=== PATIENT | female | born 1955 | race Caucasian/White ===

== ENCOUNTER 2019-08-17 13:43 | Outpatient (CLI) | payer MEDICARE, SELFPAY ==
--- NOTE | ~2019-08-17 | XR_ITS ---
EXAMINATION: XR chest 2V EXAM DATE: 08/17/2019 14:09 INDICATION: Cough. TECHNIQUE: Frontal and lateral projections of the chest obtained and reviewed. Comparison is made to prior examination from 11/12/2008. FINDINGS: The lungs are clear. There are no pleural effusions. The cardiomediastinal silhouette is within normal limits. There is no pneumothorax suspected. The bones and soft tissues are unremarkab le. Lungs are moderately hyperinflated. IMPRESSION: 1. No acute cardiopulmonary findings. 2. Hyperinflation. Reviewed, dictated and finalized at location A. ESS INSPECTOR
== END 2019-08-17 13:44 | disposition home or self-care (01) ==
LOC: ANHIMG 13:50
PROVIDERS: PCP Family Medicine; Visit Provider Family Medicine
DX: R05 Cough (principal); R91.8 Other nonspecific abnormal finding of lung field
CPT/HCPCS: 71046

== ENCOUNTER 2019-09-16 15:58 | Inpatient (IN) | payer MEDICARE, MEDICAID, SELFPAY ==
[2019-09-16] VITALS (11 sets, daily range): BP systolic 113–146; BP diastolic 60–89; PULSE 85–101; RESP 16–24; TEMP 37.2–37.7; O2SAT 93–98; BMI 28.4
--- NOTE | ~2019-09-16 | XR_ITS ---
EXAMINATION: XR chest 2V DATE: 09/16/2019 16:40 INDICATION: This of breath, cough and congestion TECHNIQUE: PA and lateral views of the chest were obtained. COMPARISON: 08/17/2019 FINDINGS: Increased expansion of lungs with mild eventration along the diaphragm accentuated by lordotic positi oning. Calcified nodules in the right upper lung zone and calcified mediastinal lymph nodes consisten t with old granulomatous disease. No other airspace opacities, pulmonary edema, pleural effusion or p neumothorax. The cardiomediastinal silhouette is normal. Mild thoracic spondylosis with chronic mild anterior wedging of a lower thoracic vertebral body. IMPRESSION: 1. Unchanged hyperexpansion of lungs. No acute cardiopulmonary disease. Reviewed, dictated and finalized at location A. OMER SOLUTIONS COORDINATOR
--- NOTE | ~2019-09-16 | CT_ITS ---
EXAMINATION: CT sinus wo con DATE: 09/18/2019 09:04 INDICATION: Recurrent sinusitis. Emphysema. TECHNIQUE: Computed tomography (CT) of the paranasal sinuses was performed without intravenous contra st. The dose-length product was 215.35 mGy-cm. COMPARISON: None FINDINGS: There is mild mucosal thickening of the maxillary and frontal sinuses. No air-fluid levels. Leftward nasal septal deviation. Right ostiomeatal unit is patent. Left ostiomeatal unit is partiall y occluded by soft tissue. Partially visualized mastoids are pneumatized. IMPRESSION: 1. Mild sinus disease. 2: Leftward nasal septal deviation. Reviewed, dictated and finalized at location A. STANT TEACHING PROFESSOR
--- NOTE | ~2019-09-16 | CT_ITS ---
EXAMINATION: CT chest high resolution wo co DATE: 09/18/2019 09:05 INDICATION: Recurrent sinus disease. Emphysema. Dyspnea. TECHNIQUE: Computed tomography (CT) of the chest was performed without intravenous contrast. The dose -length product was 213.96 mGy-cm. Automated exposure control and iterative reconstruction technique were employed. COMPARISON: Chest x-ray dated 09/16/2019 FINDINGS: There are calcified mediastinal lymph nodes, consistent with chronic granulomatous disease. Mildly prominent substernal thyroid gland with 2.2 cm hypodense mass of the left thyroid lobe. Consi ronald correlation with ultrasound. Heart size normal. No significant pleural or pericardial effusion. T here are calcified granulomas in the right lung. There are calcified splenic granulomas. Small subcen timeter hypodensity right hepatic lobe, likely benign. There is a 5 mm left upper lobe nodule, axial image 36. There are small scattered 2 mm nodules bilate rally. No pneumothorax. No focal airspace consolidation. There is emphysema. There is groundglass opa cification right middle lobe, likely atelectasis. No endobronchial lesions. Mild thoracic spondylosis . No osteolytic or osteoblastic lesions. IMPRESSION: 1. Small pulmonary nodules, largest in the left upper lobe measuring 5 mm, likely benign. Recommend f ollow-up low dose CT chest in 12 months. 2: Emphysema. 3: 2.2 cm hypodense mass left thyroid lobe, consider correlation with ultrasound. Reviewed, dictated and finalized at location A. IL STORE ASSOCIATE IMPRESSION: 1. Small pulmonary nodules, largest in the left upper lobe measuring 5 mm, like ly benign. Recommend follow-up low dose CT chest in 12 months. 2: Emphysema. 3: 2.2 cm hypodense mass left thyroid lobe, consider correlation with ultrasou nd.
--- NOTE | 2019-09-16 16:11 | ECG_ITS ---
Measurements Intervals [place] Rate: 86 P: 80 AL: 145 QRS: 71 QRSD: 78 T: 74 QT: 345 QTc: 415 Interpretive Statements SINUS RHYTHM BASELINE ARTIFACT- I, II, III, AVR, AVL, AVF BORDERLINE ECG Electronically Signed On 09-16-2019 18:51:24 UNDERTAKER HELPER by Davion Cardenas D.O.
[2019-09-16 16:25] LABS: Basophils Absolute Auto 0.1 K/mm3 (0.0-0.1); Basophils Percent Auto 0.8 % (0.2-1.2); Eosinophils Absolute Auto 0.3 K/mm3 (0-0.3); Eosinophils Percent Auto 1.8 % (0-4.4); Hematocrit 37.3 % (37.0-47.0); Hemoglobin 11.9 g/dL (12.0-15.0); Immature Granulocyte Absolute 0.07 K/mm3 (0.00-0.031); Immature Granulocyte Percent A 0.5 % (0-0.5); Lymphocytes Absolute Auto 2.94 K/mm3 (0.9-3.2); Lymphocytes Percent Auto 20.2 % (18.3-44.2); Mean Corpuscular HGB Conc 31.9 g/dl (32-36); Mean Corpuscular Hemoglobin 29.6 pg (26-34); Mean Corpuscular Volume 92.8 fl (80-100); Mean Platelet Volume 8.9 fl (7.4-10.4); Monocytes Absolute Auto 1.7 K/mm3 (0.1-0.6); Monocytes Percent Auto 11.3 % (2.6-8.5); Neutrophils Absolute Auto 9.5 K/mm3 (1.3-6.7); Neutrophils Percent Auto 65.4 % (45.5-73.1); Platelet Count Result 414 k/mm3 (150-375); Red Blood Count 4.02 M/mm3 (4.2-5.4); Red Cell Distribution Width 12.7 % (11.5-14.5); White Blood Count 14.6 K/mm3 (4.5-10.0)
[2019-09-16 16:35] LABS: Blood Urea Nitrogen 14 mg/dL (7-17); Calcium 8.9 mg/dL (8.4-10.2); Carbon Dioxide 29 mmol/L (22-30); Chloride 98 mmol/L (98-107); Estimated Glomerular Filt Rate 55; Glucose 100 mg/dL (65-105); Potassium 4.1 mmol/L (3.4-5.0); Sodium 138 mmol/L (137-145)
--- NOTE | 2019-09-16 17:39 | ED.SOB ---
HPI - SOB/Dyspnea General Chief Complaint: Shortness of Breath/Dyspnea Stated Complaint: Difficulty breathing Time Seen by Provider: 09/16/19 17:36 Source: patient and RN notes reviewed Mode of arrival: other Limitations: no limitations History of Present Illness HPI Narrative: Pt is a 64 y/o female who presents to the ED with c/o intermittent SOB since June, but she states that her sx began again yesterday. Pt states that she had three rounds of abx and Prednisone. Pt states that she believes that she is has the flu again. Pt also reports cough, nasal congestion, post nasal drip, headache, intermittent fever, and a resolved sore throat. MD elicited complaint: shortness of breath Onset (ago): month(s) (3) Context: recent illness Timing: intermittent Associated symptoms: fever (intermittent), cough and other (nasal congestion, post nasal drip, headache, a resolved sore throat ) Related Data Home Medications Medication Instructions Recorded Confirmed fluticasone propionate 50 2 spray NASAL DAILY 06/22/19 mcg/actuation nasal spray,suspension lisinopril 10 mg tablet 10 mg PO DAILY 06/22/19 magnesium 250 mg tablet 250 mg PO DAILY 07/29/19 Allergies Allergy/AdvReac Type Severity Reaction Status Date / Time lidocaine Allergy Unknown Tachycardia Verified 09/02/19 15:53 NOVACAINE Allergy Mild Unknown Uncoded 06/22/19 15:21 Review of Systems Review of Systems: All systems reviewed & are unremarkable except as noted in HPI and below Constitutional: Constitutional: Reports fever(s) (intermittent) ENT: Reports nasal congestion, Reports post nasal drip and Reports sore throat (resolved) Respiratory: Respiratory: Reports cough and Reports dyspnea Neurologic: Reports headache(s) PMFSH Past Medical History Medical History (Updated 09/16/19 @ 18:57 by Ever Dodd MD) Colon ulcer Depressive disorder, not elsewhere classified Diverticulitis Essential (primary) hypertension Methicillin resistant Staphylococcus aureus infection Mixed hyperlipidemia Nicotine dependence with current use Nicotine dependence, unspecified, in remission Pulmonary hyperinflation Surgical History Surgical History (Updated 09/16/19 @ 17:49 by Ailin Duvall) H/O arthroscopy of knee x3 on right knee, x1 on left knee Social History Social History (Updated 09/16/19 @ 17:45 by Ailin Duvall) Smoking packs per day: 0.25 Smoking cigarettes per day: 5.0 Years smoked: 40 Smoking pack-years: 10.00 Smoking status: Former smoker Tobacco type: cigarettes Additional smoking assessment comments: Pt states that she just quit smoking recently. Alcohol intake: current Gender identity (if verbalized by the patient): Female Exam Narrative: Exam Narrative: General appearance: Well-developed, well-nourished Skin: Normal color Head: Normocephalic, nontraumatic Eyes: Clear conjunctiva ENT: Oropharynx normal, ears normal, nose normal Neck: Supple, nontender Chest and respiratory: Airway patent, diminished end of air entry bilaterally, expiratory wheezing. Heart: Regular rate/rhythm Abdomen: Soft, nontender, no organomegaly, quiet bowel sounds Vascular: Normal peripheral pulses, normal capillary refill. Musculoskeletal: Normal range of motion, nontender back Neurologic: Alert and oriented ?3, PRODUCT OPERATIONS ASSOCIATE is normal as tested, no gross motor deficit Course Course Emergency Course: Improving Consultations Consultation #1: Discussed case with HENRY Aranda (Hospitalist). Accepts admission. Date: 09/16/19 Time: 18:43 Vital Signs Vital signs: Vital Signs Temperature 37.7 C H 09/16/19 16:11 Pulse Rate 92 09/16/19 16:11 Respiratory Rate
[2019-09-16] MEDS: IPRATROPIUM BR 0.02% INH SOLN 0.5 MG/2.5 ML VIAL INHALATION ×2 (18:10→19:43)
[2019-09-16] MEDS: ALBUTEROL SULFATE NEB 2.5 MG/0.5 ML INH 5 MG INHALATION ×2 (18:11→19:42)
[2019-09-16 18:21] LABS: Alveolar/Arterial O2 Gradient 36.2 mmHg; Base Excess ABG 2.2 mEq/l (+/-2.0); Fractional Inspired Oxygen 21 %; HCO3 ABG 27.1 mEq/l (22.0-26.0); Oxygen Content ABG 16.5 %vol (16.0-22.0); Oxygen Saturation ABG 91.9 % (95.0-100.0); Oxyhemoglobin 91.1 % THb (90.0-100.0); PCO2 ABG 43.3 mmHg (35.0-45.0); PO2 ABG 61.7 mmHg (80.0-100.0); PO2 FiO2 Ratio Arterial Blood 2.94 %; Total Hemoglobin 12.9 g/dL (12.0-18.0); pH ABG 7.414 (7.350-7.450)
[2019-09-16 18:22] LABS: Device ROOM AIR; Site Drawn RIGHT BRACHIAL
[2019-09-16] MEDS: ACETAMINOPHEN 325 MG TABLET 650 MG PO (21:23)
[2019-09-17] VITALS (13 sets, daily range): BP systolic 109–137; BP diastolic 57–71; PULSE 77–100; RESP 18–20; TEMP 36.3–37.1; O2SAT 91–93
--- NOTE | 2019-09-17 | PM.IMHP ---
H&P: HPI History of Present Illness Chief complaint: acute hypoxic respiratory failure copd exacerbatio Narrative: Date and time of patient contact: 09/16/2019 23:20 Lisa Scott is a 64 year old female with a past medical history of chronic tobacco abuse likely COPD who presented to the ER with worsening shortness of breath. The patient has had multiple episodes of respiratory illness since June. She saw her primary care provider 2 times in June and was treated conservatively for sinusitis and upper respiratory tract infection. July 19 she saw her primary care provider again and was prescribed azithromycin and 5 days of prednisone. She also was diagnosed with tonsillar cyst on the right side at that time. She reported that after the steroids in antibiotics her symptoms had improved. On August 18 she returned to the ER with burning throat pain and burning discomfort with breathing. She also reported a burning headache. Had a cough productive of green sputum. Was prescribed doxycycline and a Medrol Dosepak. Her symptoms improved with doxycycline and Medrol Dosepak. She had a x-ray which demonstrated hyperinflation. She followed up with her primary care provider's office on the week of the and was given an order for pulmonary function testing. Not too long after her last appointment with her primary care provider she did developed a severe sore throat with significant postnasal drip. She thought that she had strep throat but did not go back to the ER because she did not want a 3rd course of antibiotics. Her symptoms improved without antibiotic therapy. But then on the 14 of September she developed worsening shortness of breath and cough productive of green sputum again. She also had nasal congestion and a burning ?sinus headache?. She would cough until she was lightheaded and generally felt ill. She had generalized body aches and felt as if she had the flu. Influenza swab performed in the ER was negative. She watches her grandchildren once a week and they have been ill with upper respiratory symptoms. She denies any nausea or vomiting but has had decreased appetite. She denies any fevers or chills. The patient reports that her symptoms have been so bad that she has not smoked any cigarettes for the past 7 days. Review of Systems Review of Systems: Narrative: Except as documented in the HPI, all other systems were reviewed and are negative. [facility] Past Medical History Medical History (Updated 09/17/19 @ 00:05 by Jacqui Johnson DO) Colon ulcer 2000 Depressive disorder, not elsewhere classified Diverticulitis Essential (primary) hypertension Methicillin resistant Staphylococcus aureus infection on her back in 2010 Mixed hyperlipidemia Nicotine dependence with current use Nicotine dependence, unspecified, in remission Pulmonary hyperinflation outpatient PFT's have been ordered Surgical History Surgical History H/O arthroscopy of knee x3 on right knee, x1 on left knee Family History Family History Father Family history of coronary artery disease Hypertension Chronic obstructive pulmonary disease Congestive heart failure Mother Hypertension Acute myocardial infarction Asthma Chronic obstructive pulmonary disease Diabetes mellitus Sibling Hypertension Asthma Chronic obstructive pulmonary disease Social History Social History (Updated 09/17/19 @ 04:04 by Jacqui Johnson DO) Social History: The patient has smoked since she was a teenager. She has smoked a little less than a pack of cigarettes per day for 47 years. She had quit smoking for 2 and half to 3 years but started smoking again several years ago. She has been down to 4 5 cigarettes a day for several months. And has not smoked at all for the last 7 days due to her upper respiratory symptoms. She drinks a couple of al
[2019-09-17] MEDS: methylPREDNISolone SOD SUCC 125 MG VIAL 60 MG IV PUSH ×4 (00:01→17:17)
--- NOTE | 2019-09-17 02:13 | PC.NURSE ---
This patient, Lisa Scott, was admitted to Medical Room 347-. Patient/family oriented to hospital policies and general routines including ID bracelet, bed and alarms, visiting hours, pain management, procedures, bathroom and other care routines, personal items, smoking policy, room service/diet, and visiting hours. Valuables list has been completed. Information on how to activate the Rapid Response Team has been discussed. Patient/Family are encouraged to report perceived risks to care and to ask questions if they do not understand what they are told or what they should do.
[2019-09-17] MEDS: IPRATROPIUM BR 0.02% INH SOLN 0.5 MG/2.5 ML VIAL INHALATION ×4 (06:31→19:07)
[2019-09-17] MEDS: ALBUTEROL SULFATE NEB 2.5 MG/0.5 ML INH 5 MG INHALATION ×2 (06:31→09:40)
[2019-09-17] MEDS: ENOXAPARIN 40 MG/0.4 ML SYRINGE SUB-Q (08:49)
[2019-09-17] MEDS: FLUTICASONE PROPIONATE 0.05% NA SPR 16 GM BTL (*BKC) 2 SPRAY NASAL (08:49)
[2019-09-17] MEDS: VITAMIN B COMPLEX CAPSULE 1 CAP PO (08:49)
[2019-09-17] MEDS: LEVALBUTEROL NEB 1.25 MG/3 ML 0.63 MG INHALATION ×2 (15:43→19:07)
[2019-09-17] MEDS: ACETAMINOPHEN 325 MG TABLET 650 MG PO (17:16)
--- NOTE | 2019-09-17 18:30 | PM.IMPN ---
Progress Note: A&P Assessment and Plan (1) Acute exacerbation of chronic obstructive airways disease: Code(s): J44.1 - Chronic obstructive pulmonary disease with (acute) exacerbation Status: Acute Assessment and Plan: Patient most likely has underlying COPD. However she has not been well enough to complete the PFTs that have been ordered as outpatient. Patient is not on any inhalers or nebulizers at home. Sx better but still with sinus symptoms. Lung exam improved. Continue scheduled nebulizer treatments and IV steroids Patient does not have a oxygen requirement and is not in significant respiratory distress at this time. Will transition to oral steroids tomorrow. Check echo and HRCT to start the workup. Check sputum. Codeine for her cough (2) Nicotine dependence with current use: Code(s): F17.200 - Nicotine dependence, unspecified, uncomplicated Status: Acute Assessment and Plan: She has been encouraged to quit smoking. (3) Essential (primary) hypertension: Code(s): I10 - Essential (primary) hypertension Status: Acute Assessment and Plan: BP reviewed on 09/17/19. BP well controlled. Continue lisinopril. (4) Upper respiratory infection, viral: Code(s): J06.9 - Acute upper respiratory infection, unspecified Status: Acute Assessment and Plan: Most likely viral given her exposure. Boom check sputum. Contineu supportive care. Subjective Date/time seen: 09/17/19 18:30 Interval history: 64yo female here for cough and SOB. Complains of sinus OLVERA with congestion involving the right side of her head. 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 Cough productive of green sputum. Also with burning in the throat from coughing. No CP, nausea or vomiting. has been told she has COPD but not had any formal evaluation. No significnat KWONG. Exam Narrative: Exam Narrative: Gen - NARD sitting up in bed HEENT - whitish nodule in the right tonsil, nml tonsillar size without erythema. MMM Chest - few basilar crackles o/w distant BS CV - RRR S1/S2 Abd - soft, NT/ND, +BS Ext - no pedal edema Psych - nml mood and affect Skin - warm and dry Objective Data Vital Signs Vital Signs: Vital Signs - 24 hr 09/16/19 18:48 09/16/19 19:30 09/16/19 19:33 Temperature Pulse Rate 91 85 90 Respiratory Rate 18 18 17 Blood Pressure 142/74 H 113/60 Pulse Oximetry 96 94 94 09/16/19 19:40 09/16/19 19:48 09/16/19 20:04 Temperature Pulse Rate 86 87 93 Respiratory Rate 17 16 16 Blood Pressure 123/66 Pulse Oximetry 93 09/16/19 20:25 09/17/19 05:22 09/17/19 06:32 Temperature 98.9 F 97.4 F L Pulse Rate 101 H 85 83 Respiratory Rate 20 18 20 Blood Pressure 129/71 137/71 Pulse Oximetry 94 92 09/17/19 06:42 09/17/19 09:40 09/17/19 09:43 Temperature Pulse Rate 87 88 Respiratory Rate 18 20 Blood Pressure Pulse Oximetry 91 09/17/19 10:00 09/17/19 14:00 09/17/19 15:44 Temperature 98.7 F Pulse Rate 100 82 86 Respiratory Rate 20 18 20 Blood Pressure 118/61 Pulse Oximetry 92 09/17/19 15:58 Temperature Pulse Rate 96 Respiratory Rate 20 Blood Pressure Pulse Oximetry Intake/Output Intake/Output: Intake & Output 09/14/19 09/15/19 09/16/19 09/17/19 23:59 23:59 23:59 23:59 Intake Total 3065 Balance 3065 Meds/Results Medications: Active Medications Generic Name Dose Route Start Last Admin Trade Name Freq PRN Reason Stop Dose Admin Acetaminophen 650 mg 09/16/19 18:59 09/17/19 17:16 Tylenol Tablet PO 650 mg Q4H PRN Administration Mild Pain (1-3) or Fever Ascorbic Acid 500 mg 09/17/19 21:00 Vitamin C PO [facility] Calcium Carbonate 500 mg 09/17/19 21:00 Os-Yoni 500 +D Tablet PO 10/17/19 21:01 [facility] Enoxaparin Sodium 40 mg 09/17/19 09:00 09/17/19 08:49 Lovenox SUB-Q 40 mg DAILY [facility] Admin
[2019-09-17] MEDS: lisinopriL 10 MG TABLET PO (21:26)
[2019-09-17] MEDS: ASCORBIC ACID 500 MG TABLET PO (21:26)
[2019-09-17] MEDS: MAGNESIUM OXIDE 400 MG TABLET PO (21:27)
[2019-09-18] VITALS (8 sets, daily range): BP systolic 136–149; BP diastolic 60–70; PULSE 76–99; RESP 16–20; TEMP 36.3–37.1; O2SAT 90–91
--- NOTE | 2019-09-18 | ECHO_ITS ---
Patient Info Name: Lisa Scott Age: 64 years : 1955 Gender: Female Ht: 63 in Wt: 160 lbs BSA: 1.82 m2 HR: 81 bpm BP: 134 / 59 mmHg Heart Rhythm: Sinus Rhythm Technical Quality: Good Exam Date: 09/18/2019 7:10 AM Exam Location: [facility] Card Pulmonary Patient Status: Inpatient Admit Date: 09/17/2019 Staff Ordering Physician: Gamal Trevnio MD Photo Cartographer: Camelia Persaud RDCS Attending Provider: Gamal Trevino MD Exam Type: CA echo doppler color flow Study Info Complete two-dimensional, color flow and Doppler transthoracic echocardiogram is performed. Summary 1. Left ventricular systolic function is hyperdynamic, estimated at >70%. 2. There is mildly increased left ventricular wall thickness. 3. The left ventricular diastolic function is grade II diastolic dysfunction. 4. Left atrial chamber dimension is mildly enlarged. 5. There is no aortic valve stenosis. 6. There is trace mitral valve regurgitation. 7. Mild pulmonary hypertension, estimated pulmonary arterial systolic pressure is 39 mmHg. 8. There is mild tricuspid valve regurgitation. Left Ventricle Left ventricular chamber dimension is normal. Left ventricular systolic function is hyperdynamic, estimated at >70%. There is mildly increased left ventricular wall thickness. The left ventricular diastolic function is grade II diastolic dysfunction. Right Ventricle Right ventricular chamber dimension is normal. Right ventricular systolic function is normal. Left Atria Left atrial chamber dimension is mildly enlarged. Right Atria Right atrial chamber dimension is normal. Aortic Valve The aortic valve is trileaflet. There is no aortic valve stenosis. There is no aortic valve regurgitation. Pulmonic Valve The pulmonic valve is not well visualized. Mitral Valve The mitral valve has normal leaflets. There is trace mitral valve regurgitation. Tricuspid Valve The tricuspid valve leaflets are normal. There is mild tricuspid valve regurgitation. Mild pulmonary hypertension, estimated pulmonary arterial systolic pressure is 39 mmHg. Pericardium/Pleural The pericardium appears normal. There is no pericardial effusion. Inferior Vena Cava Normal inferior vena cava with >50% collapse upon inspiration consistent with normal right atrial pressure, 5 mmHg. Aorta The aortic root size at the sinus of Valsalva is normal. Left Ventricular Outflow Tract Name Value Normal LVOT 2D LVOT Diameter 2.1 cm LVOT Doppler LVOT Peak Velocity 176 cm/s LVOT Peak Gradient 8 mmHg LVOT Mean Gradient 4 mmHg LVOT VTI 32 cm LVOT VTI/AV VTI Ratio 1.0 LVOT Stroke Volume 109 ml LVOT CO 8.3 l/min LVOT CI 4.6 l/min/m2 Pulmonic Valve Name Value Normal
[2019-09-18] MEDS: methylPREDNISolone SOD SUCC 125 MG VIAL 60 MG IV PUSH ×3 (00:18→11:28)
[2019-09-18] MEDS: IPRATROPIUM BR 0.02% INH SOLN 0.5 MG/2.5 ML VIAL INHALATION ×3 (01:52→15:38)
[2019-09-18] MEDS: LEVALBUTEROL NEB 1.25 MG/3 ML 0.63 MG INHALATION ×3 (01:53→15:38)
[2019-09-18] MEDS: ENOXAPARIN 40 MG/0.4 ML SYRINGE SUB-Q (08:35)
[2019-09-18] MEDS: VITAMIN B COMPLEX CAPSULE 1 CAP PO (08:35)
[2019-09-18] MEDS: FLUTICASONE PROPIONATE 0.05% NA SPR 16 GM BTL (*BKC) 2 SPRAY NASAL (08:35)
[2019-09-18] MEDS: ACETAMINOPHEN 325 MG TABLET 650 MG PO (11:35)
--- NOTE | 2019-09-18 15:02 | PM.DS ---
DS: Diagnosis Admitting Diagnosis Admitting Diagnosis: Chronic obstructive pulmonary disease with (acute) exacerbation Discharge Diagnosis (1) Acute exacerbation of chronic obstructive airways disease: Code(s): J44.1 - Chronic obstructive pulmonary disease with (acute) exacerbation Status: Acute Assessment and Plan: Patient here with productive cough and SOB with wheezing. CXR showing no acute disease but hyperexpanded lungs. ABG showing 7.41/43/62 on RA. Treated with steroids and nebulizer treatments. Symptoms better but still with cough. CT scan showing emphysema. She has not been well enough to complete the PFTs that have been ordered as outpatient. Patient is not on any inhalers or nebulizers at home. Patient does not have a oxygen requirement and is not in significant respiratory distress. Echo shwing EF 70%and diastolic dysfunction grade II. Mild sinus disease also noted. Patient still with coughing jags. Would consider Pertussis but she has already had multiple rounds of abx. She feels better and feels ready for discharge. (2) Nicotine dependence with current use: Code(s): F17.200 - Nicotine dependence, unspecified, uncomplicated Status: Acute Assessment and Plan: She has been encouraged to quit smoking. This was discussed for approximately 8 minutes. (3) Essential (primary) hypertension: Code(s): I10 - Essential (primary) hypertension Status: Acute Assessment and Plan: BP monitored closely. BP well controlled. We continued her home lisinopril here. Will change to Diovan to see if cough improves. (4) Upper respiratory infection, viral: Code(s): J06.9 - Acute upper respiratory infection, unspecified Status: Acute Assessment and Plan: Most likely viral given her exposure. MRSA nasal swab negative. Sputum is pending. (5) Thyroid nodule: Code(s): E04.1 - Nontoxic single thyroid nodule Status: Acute Assessment and Plan: CT scan noted a 2.2 cm hypodense mass left thyroid lobe. Will order outpatient US. Defer to PCP for further evaluation (6) Pulmonary nodule: Code(s): R91.1 - Solitary pulmonary nodule Status: Acute Assessment and Plan: CT scan also showing small pulmonary nodules with the largest in the left upper lobe measuring 5 mm, likely benign. Radiologist recommends a follow-up low dose CT chest in 12 months. Will order. DS: Summary Hospital Course Reason for hospitalization: 64yo female here for SOB abd cough. Please see H&P for details Hospital Course: As above Time spent discussing smoking cessation with patient: 3 to 10 minutes Time Spent with Patient Time attestation: Total time spent providing and/or coordinating discharge services:39 minutes Time spent: Greater than 30 minutes Exam Narrative: Exam Narrative: Gen - NARD Chest -few scattered wheezes otherwise distant breath sounds. CV - RRR S1/S2 Abd - Soft, NT/ND, Positive BS Ext - No pedal edema Psych - Nml mood and affect Skin - Warm and dry DS: Data Data Completed and Pending Labs on day of discharge: Preliminary micro results at discharge 09/18/19 06:08 Sputum Culture - Preliminary Sputum Discharge Plan Discharge Attending physician on discharge: Gamal Trevino Discharging Clinician: Gamal Trevino Anticipated Discharge Date/Time: 09/18/19 15:23 Patient Disposition: Home, Self-Care Activity: as tolerated Diet: regular Discharge Instructions: Follow up with the primary care doctor in 1-2 weeks. Patient Instructions: How to Stop Smoking (DC), Antibiotic Form Stand Alone Forms: General Discharge Information Follow-up/Referrals: El Renner MD [Primary Care Provider] - 1 Week Discharge Medications: New albuterol sulfate 90 mcg/actuation aerosol powdr breath activated 2 inhalation INHALATION QID Qty: 1 RF: 1 fluticasone propion-salmete
--- NOTE | 2019-09-22 13:54 | PC.NURSE ---
sputum cx- normal oropharyngeal joo. Dr. Belinda troy.
== END 2019-09-18 16:20 | disposition home or self-care (01) | DRG 192 ==
LOC: ANHED 18:57 → ANH3MED 20:09
PROVIDERS: Emergency Medicine; Admitting Provider Internal Medicine; Emergency Provider Emergency Medicine; PCP Family Medicine; Visit Provider Internal Medicine
DX: J44.1 Chronic obstructive pulmonary disease with (acute) exacerbation (principal); J06.9 Acute upper respiratory infection, unspecified; E04.1 Nontoxic single thyroid nodule; R91.1 Solitary pulmonary nodule; I10 Essential (primary) hypertension; E78.2 Mixed hyperlipidemia; F32.9 Major depressive disorder, single episode, unspecified; Z87.891 Personal history of nicotine dependence
CPT/HCPCS: 36415; 36600; 70486; 71046; 71250; 80048; 82805; 85025; 87070; 87081; 87205; 87804; 93005; 93306; 94640; 99285; A9270; J1650; J2930

== ENCOUNTER 2020-02-18 14:56 | Outpatient (CLI) | payer MEDICARE, SELFPAY ==
--- NOTE | ~2020-02-18 | US_ITS ---
EXAMINATION: US thyroid DATE: 02/18/2020 15:57 INDICATION: Nontoxic single thyroid nodule TECHNIQUE: Multiple ultrasound images of the thyroid were obtained. COMPARISON: None. FINDINGS: The right thyroid lobe measures 6.4 x 2.8 x 2.2 cm. The left thyroid lobe measures 6.9 x 3.2 x 2.3 c m. The thyroid isthmus measures 2 mm thickness. Wider than tall hypoechoic solid nodule with well-def ined margins and without internal echogenic foci (TI-RADS 4, moderately suspicious , FNA if >=1.5 cm, annual followup is >1 cm) measuring 2.3 cm in maximal diameter and the lateral mid right thyroid lob e and 1.9 cm in the inferior right thyroid lobe. 1.5 cm wider than tall solid isoechoic nodule at the deep right thyroid lobe (TI-RADS 3, mildly suspicious , FNA if >=2.5 cm, annual followup is >1.5 cm) . Lobular architecture to the left thyroid lobe with heterogeneous echogenicity but without clearly d efined discrete thyroid nodules. IMPRESSION: 1. Multinodular goiter with a couple TI RADS 4 nodules in the right thyroid lobe being criteria for u ltrasound guided biopsy. Would recommend biopsy of at least the larger 2.3 cm nodule and could consid er biopsy of the second 1.9 cm nodule. 2. Lobular architecture to the left thyroid lobe without a clearly defined nodule identified on the p rovided ultrasound images although there does appear to be a nodule based upon the prior CT imaging. Recommend reassessment of the left thyroid lobe at the time of recommended right thyroid biopsy and b iopsy should and nodule meeting consists criteria be identified. Reviewed, dictated and finalized at location A. IMPRESSION: 1. Multinodular goiter with a couple TI RADS 4 nodules in the right thyroid lob e being criteria for ultrasound guided biopsy. Would recommend biopsy of at [address] st the larger 2.3 cm nodule and could consider biopsy of the second 1.9 cm nodu le. 2. Lobular architecture to the left thyroid lobe without a clearly defined nodu le identified on the provided ultrasound images although there does appear to b e a nodule based upon the prior CT imaging. Recommend reassessment of the left thyroid lobe at the time of recommended right thyroid biopsy and biopsy should and nodule meeting consists criteria be identified.
== END 2020-02-18 14:57 | disposition home or self-care (01) ==
PROVIDERS: PCP Family Medicine; Visit Provider Physician Assistant
DX: E04.2 Nontoxic multinodular goiter (principal)
CPT/HCPCS: 76536

== ENCOUNTER 2020-02-28 12:57 | Outpatient (CLI) | payer MEDICARE, SELFPAY ==
--- NOTE | ~2020-02-28 | US_ITS ---
EXAMINATION: 1. US FNA w image guidance 2. US FNA additional DATE: 02/28/2020 14:24 INDICATION: Nontoxic thyroid nodules. TECHNIQUE: The procedure and its benefits, risks, and benefits were discussed with the patient. Risks specifical ly discussed included bleeding. The patient verbalized understanding of the risks and agreed to proce ed. The neck was prepped and draped in the usual sterile manner. 1% lidocaine was used for local ane sthesia. Five passes were made with a 25G needle into the nodule in superior right thyroid lobe. Ap propriate needle location was documented with continuous sonographic guidance. Five passes were made with a 25G needle into the nodule in inferior right thyroid lobe. Appropriate needle location was documented with continuous sonographic guidance. There were no immediate complica tions. The patient understood to call the ordering physician for results after a week and a half and verbalized that understanding. FINDINGS: Grayscale ultrasound images demonstrate needles advanced into a 2.3 cm nodule in superior right thyro id lobe for biopsy. Grayscale ultrasound images demonstrate needles advanced into a 1.9 cm nodule in inferior right thyroid lobe. IMPRESSION: 1. Ultrasound-guided fine needle aspiration of a nodule in superior right thyroid lobe. 2. Ultrasound-guided fine-needle aspiration of a nodule in inferior right thyroid lobe. Reviewed, dictated and finalized at location A. IMPRESSION: 1. Ultrasound-guided fine needle aspiration of a nodule in superior right thyr oid lobe. 2. Ultrasound-guided fine-needle aspiration of a nodule in inferior right thyro id lobe.
== END 2020-02-28 12:58 | disposition home or self-care (01) ==
PROVIDERS: PCP Family Medicine; Visit Provider Physician Assistant
DX: E04.1 Nontoxic single thyroid nodule (principal)
CPT/HCPCS: 10005; 10006; 88173; 88305

== ENCOUNTER 2020-08-21 14:29 | Outpatient (CLI) | payer MEDICARE, SELFPAY ==
--- NOTE | ~2020-08-21 | MM_ITS ---
EXAMINATION: MM screening [place] BI w carol ann HISTORY: Screening mammogram TECHNIQUE: Craniocaudal and mediolateral oblique 3-D tomosynthesis images were obtained and synthetic 2-D images were generated. CAD analysis was submitted and interpreted. COMPARISON: 09/12/2016, 02/19/2012 bilateral digital screening mammogram examinations BREAST PARENCHYMAL COMPOSITION: There are scattered areas of fibroglandular density. FINDINGS: There is no evidence of suspicious mass, calcification, or architectural distortion to sugg est malignancy in either breast. There has been no suspicious interval change. IMPRESSION: 1. No mammographic evidence of malignancy. 2. Recommend routine screening mammography in one year. BI-RADS Category 1: Negative Reviewed, dictated and finalized at location A. ES CLERK
== END 2020-08-21 14:30 | disposition home or self-care (01) ==
PROVIDERS: Family Provider Family Medicine; PCP Internal Medicine; Visit Provider Internal Medicine
DX: Z12.31 Encounter for screening mammogram for malignant neoplasm of breast (principal)
CPT/HCPCS: 77063; 77067

== ENCOUNTER 2021-08-24 13:34 | Observation (INO) | payer MEDICARE, SELFPAY ==
[2021-08-24] VITALS (9 sets, daily range): BP systolic 108–145; BP diastolic 71–83; PULSE 62–130; RESP 15–23; TEMP 35.8–36.2; O2SAT 94–100; BMI 34.9
--- NOTE | ~2021-08-24 | XR_ITS ---
EXAMINATION: XR chest 2V EXAM DATE: 08/24/2021 14:06 INDICATION: Irregular Heartbeat, Sob. Hx Copd, TECHNIQUE: Frontal and lateral projections of the chest obtained and reviewed. Comparison is made to prior examination from 09/16/2019. FINDINGS: The lungs are clear. There are no pleural effusions. The cardiomediastinal silhouette is within normal limits. There is no pneumothorax suspected. The bones and soft tissues are unremarkab le. IMPRESSION: No acute cardiopulmonary findings. Reviewed, dictated and finalized at location B. FINISHER
--- NOTE | 2021-08-24 13:47 | ECG_ITS ---
Measurements Intervals [place] Rate: 151 P: IA: 0 QRS: 51 QRSD: 78 T: 64 QT: 289 QTc: 459 Interpretive Statements ATRIAL FIBRILLATION WITH RAPID VENTRICULAR RESPONSE ST-T WAVE ABNORMALITY IN ANTEROLATERAL LEADS- CONSIDER ISCHEMIA ABNORMAL ECG Electronically Signed On 08-24-2021 13:55:48 [employer]OGRAPHY FACULTY MEMBER by Davion Cardenas D.O.
[2021-08-24 13:59] LABS: Basophils Absolute Auto 0.1 K/mm3 (0.0-0.1); Basophils Percent Auto 1.4 % (0.2-1.2); Eosinophils Absolute Auto 0.3 K/mm3 (0-0.3); Eosinophils Percent Auto 3.4 % (0-4.4); Hematocrit 39.4 % (37.0-47.0); Hemoglobin 12.9 g/dL (12.0-15.0); Immature Granulocyte Absolute 0.03 K/mm3 (0.00-0.031); Immature Granulocyte Percent A 0.4 % (0-0.5); Lymphocytes Absolute Auto 2.31 K/mm3 (0.9-3.2); Lymphocytes Percent Auto 29.8 % (18.3-44.2); Mean Corpuscular HGB Conc 32.7 g/dl (32-36); Mean Corpuscular Hemoglobin 28.4 pg (26-34); Mean Corpuscular Volume 86.6 fl (80-100); Mean Platelet Volume 9.2 fl (7.4-10.4); Monocytes Absolute Auto 0.5 K/mm3 (0.1-0.6); Monocytes Percent Auto 6.6 % (2.6-8.5); Neutrophils Absolute Auto 4.5 K/mm3 (1.3-6.7); Neutrophils Percent Auto 58.4 % (45.5-73.1); Platelet Count Result 333 k/mm3 (150-375); Red Blood Count 4.55 M/mm3 (4.2-5.4); Red Cell Distribution Width 13.6 % (11.5-14.5); White Blood Count 7.8 K/mm3 (4.5-10.0)
[2021-08-24 14:08] LABS: Alanine Aminotransferase 20 U/L (4-35); Albumin Level 4.6 g/dL (3.5-5.1); Alkaline Phosphatase 118 U/L (38-126); Anion Gap 9 mmol/L (8-16); Aspartate Amino Transferase 34 U/L (14-36); Bilirubin,Total 0.4 mg/dL (0.2-1.3); Blood Urea Nitrogen 30 mg/dL (7-17); Calcium 9.7 mg/dL (8.4-10.2); Carbon Dioxide 22 mmol/L (22-30); Chloride 107 mmol/L (98-107); Estimated Glomerular Filt Rate 37; Glucose 129 mg/dL (65-110); Lipase 279 U/L (23-300); Potassium 4.1 mmol/L (3.4-5.0); Sodium 138 mmol/L (137-145)
--- NOTE | 2021-08-24 14:15 | ED.ARRPALP ---
HPI - Arrhythmia/Palpitations General Chief Complaint: Arrhythmia/Palpitations Stated Complaint: palpations Time Seen by Provider: 08/24/21 14:01 Source: patient Mode of arrival: ambulatory Limitations: no limitations History of Present Illness HPI narrative: Patient is a 66-year-old female complaining palpitations, sudden onset, started today. Patient denies any chest pain, shortness of breath, abdominal pain, nausea, vomiting, diaphoresis, fever or chills. Patient has a history of COPD denies any history of arrhythmias or heart disease. Related Data Home Medications Medication Instructions Recorded Confirmed fluticasone propionate 50 2 spray NASAL DAILY 06/22/19 02/10/20 mcg/actuation nasal spray,suspension magnesium 250 mg tablet 500 mg PO HS 07/29/19 02/10/20 ascorbic acid (vitamin C) [Vitamin 500 mg PO HS 09/16/19 02/10/20 C] calcium carbonate-vitamin D3 1 tablet PO HS 09/16/19 02/10/20 [Calcium with Vitamin D] codeine-guaifenesin [Virtussin AC] 5 ml PO HS PRN 09/16/19 02/10/20 potassium iodide 99 mg PO HS 09/16/19 02/10/20 vitamin B complex 1 cap PO DAILY 09/16/19 02/10/20 atorvastatin 10 mg DAILY 08/24/21 lisinopril 10 mg DAILY 08/24/21 Allergies Allergy/AdvReac Type Severity Reaction Status Date / Time lidocaine Allergy Unknown Tachycardia Verified 08/24/21 14:14 NOVACAINE Allergy Mild Unknown Uncoded 08/24/21 14:14 Review of Systems Review of Systems: All systems reviewed & are unremarkable except as noted in HPI and below Constitutional: Constitutional: Denies body ache(s), Denies chills, Denies excessive sweating, Denies fatigue, Denies fever(s), Denies headache(s), Denies lethargy, Denies malaise, Denies weakness and Denies weight loss Eyes: Eyes: Denies blurry vision, Denies change in vision and Denies loss of vision ENT: Denies dizziness, Denies ear discharge, Denies headache(s), Denies lip swelling, Denies epistaxis, Denies nasal congestion, Denies neck pain, Denies throat swelling and Denies tongue swelling Cardiovascular: Cardiovascular: Denies chest pain, Denies chest pain at rest, Denies chest pain with activity, Denies diaphoresis, Denies rapid heart rate, Denies edema, Denies irregular heart rhythm, Denies lightheadedness, Denies dyspnea and Denies dyspnea on exertion Respiratory: Respiratory: Denies chest congestion, Denies cough, Denies hemoptysis, Denies dyspnea and Denies dyspnea on exertion Gastrointestinal: Gastrointestinal: Denies abdominal pain, Denies melena, Denies hematochezia, Denies diarrhea, Denies nausea, Denies vomiting and Denies hematemesis Musculoskeletal: Musculoskeletal: Denies abnormal gait, Denies deformity, Denies joint swelling, Denies limited range of motion, Denies neck pain and Denies numbness Neurologic: Denies Abnormal speech present, Denies abnormal gait, Denies confusion, Denies dizziness, Denies headache(s), Denies focal weakness, Denies loss of vision, Denies numbness, Denies Other visual disturbances, Denies Sensory deficit (Neuro) and Denies weakness Psychiatric: Psychiatric: Denies confusion, Denies depression, Denies auditory hallucinations, Denies homicidal ideation and Denies suicidal ideation Endocrine: Endocrine: Denies cold intolerance, Denies excessive sweating, Denies fatigue, Denies heat intolerance and Denies palpitations Hematologic/Lymphatic: Hematologic/Lymphatic: Denies easy bleeding and Denies easy bruising Allergic/Immunologic: Allergic/Immunologic: Denies lip swelling, Denies throat swelling and Denies tongue swelling [facility] Past Medical History Medical History (Updated 08/24/21 @ 16:35 by Luis Lai MD) Colon ulcer 1999 Depressive disorder, not elsewhere classified Diverticulitis Essential (primary) hypertension Methicillin resistant Staphylococcus aureus infection on her back in 2009 Mixed hyperlipidemia Nicotine dependence with current use Nicotine dependence, unspecified, in remission Pulmonary hyperinflation out
[2021-08-24 14:20] LABS: Troponin I < 0.012 ng/mL (0.000-0.034)
[2021-08-24 14:22] LABS: Partial Thromboplastin Time 28.4 SECONDS (22.3-36.8)
[2021-08-24] MEDS: dilTIAZem HCl INJ 25 MG/5 ML VIAL 20 MG IV PUSH (14:26)
[2021-08-24] MEDS: LACTATED RINGERS 1,000 ML 999 ML IV CONT (14:26)
[2021-08-24 14:46] LABS: INR 1.1; Prothrombin Time 13.6 Seconds (11.1-14.7)
[2021-08-24 15:17] LABS: D Dimer 0.45 ug/mL (<0.48)
[2021-08-24 16:32] LABS: Troponin I < 0.012 ng/mL (0.000-0.034)
[2021-08-24 16:51] LABS: Thyroid Stimulating Hormone 0.385 uIU/mL (0.465-4.680)
--- NOTE | 2021-08-24 17:45 | ADMGEN ---
This patient, Lisa Scott, was admitted [facility] Patient/family oriented to hospital policies and general routines including ID bracelet, bed and alarms, visiting hours, pain management, procedures, bathroom and other care routines, personal items, smoking policy, room service/diet, and visiting hours. Information on how to activate the Rapid Response Team has been discussed. Patient/Family are encouraged to report perceived risks to care and to ask questions if they do not understand what they are told or what they should do.
[2021-08-24 18:46] LABS: Thyroid Stimulating Hormone 0.364 uIU/mL (0.465-4.680)
[2021-08-24] MEDS: LACTATED RINGERS 1,000 ML 90 ML IV CONT (19:05)
--- NOTE | 2021-08-24 19:38 | ECG_ITS ---
Measurements Intervals [place] Rate: 60 P: 37 CO: 128 QRS: 58 QRSD: 83 T: 61 QT: 399 QTc: 400 Interpretive Statements SINUS RHYTHM BASELINE ARTIFACT- I, II, III, AVR, AVL, AVF, V3-V5 NORMAL ECG Electronically Signed On 08-24-2021 20:49:39 [employer] by Davion Cardenas D.O.
[2021-08-24 20:30] LABS: Troponin I < 0.012 ng/mL (0.000-0.034)
--- NOTE | 2021-08-24 20:35 | PM.IMHP ---
H&P: HPI History of Present Illness Date/Time: 08/24/21 20:35 Chief Complaint: Palpitations Narrative: Same-day admit/discharge summary 66-year-old female past medical history of COPD, hypertension, diastolic dysfunction grade 2 and mild pulmonary hypertension who presented to the ER from home via private vehicle due to palpitations. Patient reports sudden onset of palpitations 20 minutes prior to presentation to the ER. She denied any coming shortness of breath chest pain. She denies prior cardiac history however review of records demonstrate echocardiogram from September 2019 performed due to persistent cough demonstrated EF of greater than 70% with grade 2 diastolic dysfunction and mild pulmonary hypertension. The patient reports that she was driving between properties when she began having palpitations. She felt as if her heart was willing a like a bag of worms. She has been having episodes of this on and off for the last month. She thinks she has had a 4-5 episodes. When these episodes occur they last between 10 in 20 minutes and self-resolved. This time the symptoms persisted and she decided to drive herself to the ER. When she arrived to the ER she was noted to be in atrial fibrillation with rapid ventricular response. She received 1 dose of Cardizem. She converted back to sinus rhythm before she [facility]. She does state that she was recently diagnosed with obstructive sleep apnea and has been compliant with her CPAP. She reported that she accidentally pulled her CPAP off in the middle night last night sh did not sleep as well. She denies any chest pain or orthopnea. She does have intermittent lower extremity swelling but is not currently having any swelling at this time. She does drink a fair amount of caffeine and drinks 2-3 cups of coffee in the morning and a couple of glasses of iced tea throughout the day. She denies any increased stressors in her life. She does have a history of multinodular goiter and had a thyroid biopsy in February 2020. She had a repeat thyroid biopsy 1 month ago that also had benign pathology. Labs today did demonstrate a mildly suppressed TSH. Labs today also demonstrated a creatinine of 1.4. The patient states she was diagnosed with chronic kidney disease in 2019. She states that her last creatinine was 1.5 for approximately 2 weeks ago when she followed up with her grain unloader. She was started on chlorthalidone at that time. She denies any changes in urinary frequency, vomiting, dehydration or concentrated urine. Review of Systems Review of Systems: 12 systems were reviewed with pertinent positives and negatives per HPI. Except as documented in the HPI, all other systems were reviewed and are negative. [facility] Past Medical History Medical History (Updated 08/24/21 @ 22:26 by Jacqui Johnson DO) Chronic kidney disease (CKD) Baseline creatinine between 1.2-1.5 Colon ulcer 1999 COPD (chronic obstructive pulmonary disease) Depressive disorder, not elsewhere classified Diastolic heart failure Echocardiogram 09/2019: Grade 2 diastolic dysfunction, EF greater than 70 present, mild pulmonary hypertension, trace mitral valve regurgitation, mild tricuspid valve regurgitation Diverticulitis Essential (primary) hypertension Methicillin resistant Staphylococcus aureus infection on her back in 2009 Mild pulmonary hypertension Noted on echocardiogram 09/2019 Mixed hyperlipidemia Multinodular goiter (~09/2019) With thyroid biopsy demonstrating benign follicle February 2020 Nicotine dependence with current use Nicotine dependence, unspecified, in remission Obstructive sleep apnea on CPAP (~07/2021) With CPAP pressures between 8 and 12. Surgical History Surgical History H/O arthroscopy of knee x3 on right knee, x1 on left knee Family History Family History F
[2021-08-24] MEDS: lisinopriL 10 MG TABLET PO (22:20)
[2021-08-24] MEDS: APIXABAN 5 MG TABLET PO (22:20)
[2021-08-24] MEDS: ATORVASTATIN 10 MG TABLET PO (22:20)
[2021-08-25 01:06] LABS: Free T4 Free Thyroxine 1.09 ng/mL (0.78-2.19)
[2021-08-28 20:47] LABS: Triiodothryronine T3 Uptake 34 % (22-35)
== END 2021-08-24 22:14 | disposition home or self-care (01) ==
LOC: ANHED 16:35 → ANHCPC 21:50
PROVIDERS: Emergency Medicine; Admitting Provider Hospitalist; Emergency Provider Emergency Medicine; PCP Internal Medicine; Visit Provider Internal Medicine
DX: I48.91 Unspecified atrial fibrillation (principal); R79.89 Other specified abnormal findings of blood chemistry; I13.0 Hypertensive heart and chronic kidney disease with heart failure and stage 1 through stage 4 chronic kidney disease, or unspecified chronic kidney disease; I50.30 Unspecified diastolic (congestive) heart failure; N18.30 Chronic kidney disease, stage 3 unspecified; J44.9 Chronic obstructive pulmonary disease, unspecified; E78.2 Mixed hyperlipidemia; F32.9 Major depressive disorder, single episode, unspecified; G47.33 Obstructive sleep apnea (adult) (pediatric); Z86.14 Personal history of Methicillin resistant Staphylococcus aureus infection; F17.210 Nicotine dependence, cigarettes, uncomplicated; Z79.51 Long term (current) use of inhaled steroids
CPT/HCPCS: 36415; 71046; 80053; 83690; 84439; 84443; 84479; 84484; 85025; 85380; 85610; 85730; 93005; 96361; 96374; 99285; A9270; G0378; J7120

== ENCOUNTER 2022-04-18 08:54 | Outpatient (CLI) | payer MEDICARE, SELFPAY ==
--- NOTE | ~2022-04-18 | DEXA_ITS ---
Bone Density Report Name: FABIO ROMAN Age: 67 Sex: Female Ethnicity: White Date of : 1955 Indication: osteopenia; height loss; postmenopausal Referring Provider: KARIN, PROSHA Rodriguez Study: Bone densitometry was performed. Exam Date: April 18, 2022 Accession number: [id number] Bone Density: Region BMD T-score Z-score Classification AP Spine(L1-L4) 0.894 -1.4 0.7 Osteopenia Femoral Neck (Left) 0.698 -1.4 0.4 Osteopenia Total Hip (Left) 0.801 -1.2 0.3 Osteopenia Femoral Neck (Right) 0.621 -2.0 -0.3 Osteopenia Total Hip (Right) 0.766 -1.4 0.0 Osteopenia Total Hip Mean 0.783 -1.3 0.2 Osteopenia World Health Organization criteria for BMD impression classify patients as: Normal (T-score at or above -1.0), Osteopenia (T-score between -1.0 and -2.5), or Osteoporosis (T-score at or below -2.5). 10-year Fracture Risk(1): Major Osteoporotic Fracture 11% Hip Fracture 2.0% Reported Risk Factors: [place] (), Neck BMD=0.621, BMI=33.3 (1) FRAX(R) Version 3.08. Fracture probability calculated for an untreated patient. Fracture probability may be lower if the patient has received treatment. Previous Exams: Region Exam Age BMD T-score BMD Change BMD Change Date g/cm2 vs Baseline vs Previous AP Spine (L1-L4) 04/18/2022 67 0.894 -1.4 -0.006 (-0.6%) -0.006 (-0.6%) 09/12/2016 61 0.900 -1.3 Total Hip(Left) 04/18/2022 67 0.801 -1.2 -0.052 (-6.1%) -0.052 (-6.1%) 09/12/2016 61 0.853 -0.7 Total Hip(Right) 04/18/2022 67 0.766 -1.4 0.005 (0.7%) 0.005 (0.7%) 09/12/2016 61 0.760 -1.5 *Denotes significance at 95% confidence level, LSC for AP Spine = 0.022 g/cm2, LSC for Total Hip = 0.027 g/cm2 Clinical Information Provided by Patient: Has used the following medications: Vitamin D, Calcium Patient maximum height was 66.5 Menopause Age: 48 No regular weight bearing exercise Does not regularly consume dairy products Drinks caffeinated beverages Onset of menses at age 11 Number of children 3 Impression: The patient has low bone mass, based on the Right Femoral Neck T-score. The patient has an estimated ten-year risk of hip fracture of 2% and an estimated ten-year risk of major fracture of 11%, based on the WHO FRAX algorithm. The BMD for the Total Hip(Left) decreased, changing by -6.1% since the last DXA exam. Discussion: BONE DENSITY IS LOW AT ONE OR MORE SKELETAL SITES. This patient's lowest T-s
--- NOTE | ~2022-04-18 | MM_ITS ---
EXAMINATION: MM screening [facility] BI w carol ann HISTORY: Screening mammogram TECHNIQUE: Craniocaudal and mediolateral oblique 3-D tomosynthesis images were obtained and synthetic 2-D images were generated. CAD analysis was submitted and interpreted. COMPARISON: 08/21/2020, 09/12/2016, 02/19/2012 BREAST PARENCHYMAL COMPOSITION: There are scattered areas of fibroglandular density. FINDINGS: No suspicious mass, calcification, or architectural distortion are identified in either ai ast to suggest malignancy. There has been no suspicious interval change. IMPRESSION: 1. No mammographic evidence of malignancy. 2. Recommend routine screening mammography in one year. BI-RADS Category 1: Negative Reviewed, dictated and finalized at location B.
== END 2022-04-18 08:55 | disposition home or self-care (01) ==
PROVIDERS: PCP Internal Medicine; Visit Provider Internal Medicine
DX: Z12.31 Encounter for screening mammogram for malignant neoplasm of breast (principal); Z78.0 Asymptomatic menopausal state; M85.89 Other specified disorders of bone density and structure, multiple sites
CPT/HCPCS: 77063; 77067; 77080

== ENCOUNTER 2022-10-24 00:42 | Day surgery (SDC) | payer MEDICARE, SELFPAY ==
[2022-10-15 11:53] VITALS: BMI 31.3
[2022-10-24 08:24] VITALS: BP 124/67; PULSE 70; RESP 20; TEMP 36.6; O2SAT 97; BMI 31.6
[2022-10-24] MEDS: LACTATED RINGERS 1,000 ML 150 ML IV CONT (08:26)
--- NOTE | 2022-10-24 09:06 | PM.HPGS ---
History of Present Illness History of Present Illness Consent: Risks, benefits, and alternatives have been discussed and questions answered. Patient agrees to proceed with procedure. Chief complaint: diarrhea Narrative: Lisa Scott is a 67 year old female Referred for colonoscopy. Patient reports intermittent loose stools. She states this may be related to dietary intake. No specific dietary foods seem to precipitate this. Patient denies any blood in her stools. Previous colonoscopy was 9 years ago. Patient desires neoplasia screening. Review of Systems Review of Systems: Review of systems noncontributory. [facility] Past Medical History Medical History (Updated 10/24/22 @ 09:07 by Jose Francisco Diaz MD) Chronic kidney disease (CKD) Baseline creatinine between 1.2-1.5 Colon ulcer 1999 COPD (chronic obstructive pulmonary disease) Depressive disorder, not elsewhere classified Diastolic heart failure Echocardiogram 09/2019: Grade 2 diastolic dysfunction, EF greater than 70 present, mild pulmonary hypertension, trace mitral valve regurgitation, mild tricuspid valve regurgitation Diverticulitis Essential (primary) hypertension Methicillin resistant Staphylococcus aureus infection on her back in 2009 Mild pulmonary hypertension Noted on echocardiogram 09/2019 Mixed hyperlipidemia Multinodular goiter (~09/2019) With thyroid biopsy demonstrating benign follicle February 2020 Nicotine dependence with current use Nicotine dependence, unspecified, in remission Obstructive sleep apnea on CPAP (~07/2021) With CPAP pressures between 8 and 12. Surgical History Surgical History H/O arthroscopy of knee x3 on right knee, x1 on left knee Family History Family History Father Family history of coronary artery disease Hypertension Chronic obstructive pulmonary disease Congestive heart failure Mother Hypertension Acute myocardial infarction Asthma Chronic obstructive pulmonary disease Diabetes mellitus Sibling Hypertension Asthma Chronic obstructive pulmonary disease Social History Social History (Updated 08/24/21 @ 22:21 by Jacqui Johnson DO) Social History: The patient has smoked since she was a teenager. She has smoked a little less than a pack of cigarettes per day for 47 years. She had quit smoking for 2 and half to 3 years but started smoking again several years ago. She quit smoking September 2019. She drinks a couple of alcoholic beverages a month. Primary Care Physician: Dr. Ollie Renner Code status: Full Code Smoking packs per day: 0.5 Smoking cigarettes per day: 10.0 Years smoked: 30 Smoking pack-years: 15.00 Smoking status: Former smoker Tobacco type: cigarettes Second hand tobacco smoke exposure: Yes Alcohol intake: current Drinks per week: 1 Substance use: never Substance use type: does not use Living arrangements: with family Additional living arrangements comments: She currently lives alone but watches her grandchildren every Friday. She lives at home with her 2 cats. She also watches a friends dogs. 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 Gender identity (if verbalized by the patient): Female Spiritual care concerns: No Agree to blood products: Yes Meds Home Medications and Allergies Home Medications Medication Instructions Recorded Confirmed Type albuterol sulfate 90 mcg/actuation 2 inhalation inhalation QID PRN 08/24/21 10/15/22 History breath activated powder inhaler shortness of breath apixaban 5 mg tablet (Eliquis) 5 mg PO Q12HR #60 tabs 08/24/21 10/15/22 Rx atorvastatin 10 mg tablet 10 mg PO HS 08/24/21 10/15/22 History calcium carb-vitamin D3 ER 600 mg 1 tablet PO HS 08/24/21 10/15/22 History (1,500 mg)-500 unit tablet,ER 24 hr chlorthalidone 25 mg tablet 12.5 mg PO QAM 08/24/21
--- NOTE | 2022-10-24 09:10 | WPDANESEPPF ---
Anes - Initial Pre Proc Eval Procedure: Operation Date: 10/24/22 09:30 Proposed Procedures p Colonoscopy - Jose Francisco Diaz MD Date/Time: 10/24/22 09:10 Surgeon: Jose Francisco Diaz MD Pre Op Diagnosis: diarrhea Patient Data Age: 67 Gender: F Height: 1.65 m Weight: 86.2 kg Last Vital Signs Temp 97.8 F 10/24/22 08:24 Pulse 70 10/24/22 08:24 Resp 20 10/24/22 08:24 BP 124/67 10/24/22 08:24 Pulse Ox 97 10/24/22 08:24 O2 Del Method Room Air 10/24/22 08:24 Allergies Allergy/AdvReac Type Severity Reaction Status Date / Time pine nut Allergy Intermediate Itching Verified 10/24/22 08:20 lidocaine Allergy Unknown Tachycardia Verified 10/24/22 08:20 NOVACAINE Allergy Mild Other Uncoded 10/24/22 08:20 Home Medications Medication Instructions Recorded Confirmed Type albuterol sulfate 90 mcg/actuation 2 inhalation inhalation QID PRN 08/24/21 10/15/22 History breath activated powder inhaler shortness of breath apixaban 5 mg tablet (Eliquis) 5 mg PO Q12HR #60 tabs 08/24/21 10/15/22 Rx atorvastatin 10 mg tablet 10 mg PO HS 08/24/21 10/15/22 History calcium carb-vitamin D3 ER 600 mg 1 tablet PO HS 08/24/21 10/15/22 History (1,500 mg)-500 unit tablet,ER 24 hr chlorthalidone 25 mg tablet 12.5 mg PO QAM 08/24/21 10/15/22 History diltiazem HCl 120 mg capsule,24 120 mg PO QAM #30 caps 08/24/21 10/24/22 Rx hr,extended release lisinopril 10 mg tablet 10 mg PO HS 08/24/21 10/24/22 History umeclidinium 62.5 mcg-vilanterol 1 inh inhalation QAM 08/24/21 10/15/22 History 25 mcg/actuation powdr for inhalation (Anoro Ellipta) cholecalciferol (vitamin D3) 50 50 mcg PO DAILY 10/15/22 10/15/22 History mcg (2,000 unit) tablet (Vitamin D3) loratadine 10 mg tablet (Allergy 10 mg PO DAILY 10/15/22 10/15/22 History Relief (loratadine)) lysine 500 mg tablet 500 mg PO BID 10/15/22 10/15/22 History magnesium 500 mg tablet 500 mg PO DAILY 10/15/22 10/15/22 History potassium 99 mg tablet 99 mg PO DAILY 10/15/22 10/15/22 History prednisone 10 mg tablet 10 mg PO DIRECTED 10/15/22 10/15/22 History Patient hx anesthesia problems: none Family hx anesthesia problems: none Results Review: All pre-operative results and documents have been reviewed as part of the pre-operative evaluation. [facility] Past Medical History Medical History (Updated 10/24/22 @ 09:07 by Jose Francisco Diaz MD) Chronic kidney disease (CKD) Baseline creatinine between 1.2-1.5 Colon ulcer 1999 COPD (chronic obstructive pulmonary disease) Depressive disorder, not elsewhere classified Diastolic heart failure Echocardiogram 09/2019: Grade 2 diastolic dysfunction, EF greater than 70 present, mild pulmonary hypertension, trace mitral valve regurgitation, mild tricuspid valve regurgitation Diverticulitis Essential (primary) hypertension Methicillin resistant Staphylococcus aureus infection on her back in 2009 Mild pulmonary hypertension Noted on echocardiogram 09/2019 Mixed hyperlipidemia Multinodular goiter (~09/2019) With thyroid biopsy demonstrating benign follicle February 2020 Nicotine dependence with current use Nicotine dependence, unspecified, in remission Obstructive sleep apnea on CPAP (~07/2021) With CPAP pressures between 8 and 12. Surgical History Surgical History H/O arthroscopy of knee x3 on right knee, x1 on left knee Family History Family History Father Family history of coronary artery disease Hypertension Chronic obstructive pulmonary disease Congestive heart failure Mother Hypertension Acute myocardial infarction Asthma Chronic obstructive pulmonary disease Diabetes mellitus Sibling Hypertension Asthma Chronic obstructive pulmonary disease Social History Social History (Updated 08/24/21 @ 22:21 by Jacqui Johnson DO) Social History: The patient has smoked since she wa
[2022-10-24 10:02] VITALS: BP 123/64; PULSE 61; RESP 22; O2SAT 99
[2022-10-24 10:12] VITALS: BP 127/66; PULSE 59; RESP 15; O2SAT 99
[2022-10-24 10:22] VITALS: BP 125/71; PULSE 58; RESP 14; O2SAT 99
== END 2022-10-24 10:52 | disposition home or self-care (01) ==
PROVIDERS: PCP Internal Medicine; Visit Provider Internal Medicine Gastroenterology
PROC: 0DJD8ZZ Inspection of Lower Intestinal Tract, Via Natural or Artificial Opening Endoscopic (ICD-10-PCS; CPT 45378; principal; 2022-10-24 09:30)
DX: Z12.11 Encounter for screening for malignant neoplasm of colon (principal); K63.5 Polyp of colon; K64.8 Other hemorrhoids; K57.30 Diverticulosis of large intestine without perforation or abscess without bleeding; I13.0 Hypertensive heart and chronic kidney disease with heart failure and stage 1 through stage 4 chronic kidney disease, or unspecified chronic kidney disease; I50.30 Unspecified diastolic (congestive) heart failure; N18.9 Chronic kidney disease, unspecified; J44.9 Chronic obstructive pulmonary disease, unspecified; E78.2 Mixed hyperlipidemia; G47.33 Obstructive sleep apnea (adult) (pediatric); E04.2 Nontoxic multinodular goiter; F32.A Depression, unspecified; Z86.14 Personal history of Methicillin resistant Staphylococcus aureus infection; Z87.891 Personal history of nicotine dependence; E66.9 Obesity, unspecified; Z68.31 Body mass index [BMI] 31.0-31.9, adult; Z79.51 Long term (current) use of inhaled steroids; Z79.01 Long term (current) use of anticoagulants
CPT/HCPCS: 45385; 88305; J2704; J7120

== ENCOUNTER 2023-02-28 09:30 | Outpatient (RCR) | payer MEDICARE, SELFPAY | END 2023-02-28 23:59 | disposition home or self-care (01) | LOC: ANHCPREHAB 09:30 | PROVIDERS: PCP Internal Medicine; Visit Provider Internal Medicine | DX: J44.9 Chronic obstructive pulmonary disease, unspecified (principal) | CPT/HCPCS: 94625 ==

== ENCOUNTER 2023-03-11 09:54 | Outpatient (RCR) | payer MEDICARE, SELFPAY | END 2023-05-27 08:47 | disposition home or self-care (01) | LOC: ANHCPREHAB 09:54 | PROVIDERS: PCP Internal Medicine; Visit Provider Internal Medicine | DX: J44.9 Chronic obstructive pulmonary disease, unspecified (principal) | CPT/HCPCS: 94625 ==

== ENCOUNTER 2023-04-24 07:58 | Outpatient (CLI) | payer MEDICARE, SELFPAY ==
--- NOTE | 2023-04-24 12:08 | WPDSIXMINUTE ---
Six Minute Walk Procedure Procedure Performed Pulmonary Stress Test (6 min walk) Six Minute Walk Six Minute Walk: This is a 6 minute walk test. The test was performed and interpreted in accordance with the 2014 ERS/ATS task force guidelines. Findings: The patient's resting room air oxygen saturation measured by pulse oximetry was 96% and heart rate was 69 bpm. Patient ambulated for 396 meters and oxygen saturation remained 91 to 97%. Heart rate at the end of the study was 86 bpm. The patient did not qualify for supplemental oxygen at rest or with ambulation. There are no prior studies for comparison.
== END 2023-04-24 07:59 | disposition home or self-care (01) ==
PROVIDERS: PCP Internal Medicine; Visit Provider Internal Medicine
DX: R06.00 Dyspnea, unspecified (principal)
CPT/HCPCS: 94618

== ENCOUNTER 2024-07-07 18:01 | Emergency (ER) | payer MEDICARE, SELFPAY ==
--- NOTE | ~2024-07-07 | XR_ITS ---
EXAMINATION: XR finger 3rd RT min 2V DATE: 07/07/2024 21:00 INDICATION: Right hand third digit laceration. TECHNIQUE: 3 views of right hand third digit were obtained. COMPARISON: None. FINDINGS: Alignment is normal. No fracture. Joint spaces are normal. There is a laceration of the dis amberly third digit. Bandage material is noted. IMPRESSION: 1. No fracture or radiopaque foreign body. Reviewed, dictated and finalized at location A. [employer]
[2024-07-07 18:03] VITALS: BP 124/98; PULSE 79; RESP 16; TEMP 36.6; O2SAT 100
--- NOTE | 2024-07-07 21:52 | ED_ITS ---
HPI - Wound/Laceration General Chief Complaint: Wound/Laceration Stated Complaint: finger lac Time Seen by Provider: 07/07/24 20:23 Source: patient Mode of arrival: ambulatory Limitations: no limitations History of Present Illness HPI narrative: Patient is a 69-year-old female who presents to the ED with report of laceration to her right 3rd digit. Patient reports she was attempting to get something out of a cabinet when she sliced her finger on a mandoline blade. Sustained laceration to the tip of her right 3rd digit. She is on Eliquis due to history of AFib. Denies numbness. Denies any other injuries. Tetanus up-to-date. Related Data Home Medications ?Medication ?Instructions ?Recorded ?Confirmed ?Last Taken ?Type albuterol sulfate 90 mcg/actuation 2 inhalation inhalation QID PRN 08/24/21 10/15/22 10/23/22 History breath activated powder inhaler shortness of breath atorvastatin 10 mg tablet 10 mg PO HS 08/24/21 10/15/22 10/23/22 History calcium carb-vitamin D3 ER 600 mg 1 tablet PO HS 08/24/21 10/15/22 10/23/22 History (1,500 mg)-500 unit tablet,ER 24 hr chlorthalidone 25 mg tablet 12.5 mg PO QAM 08/24/21 10/15/22 10/23/22 History lisinopril 10 mg tablet 10 mg PO HS 08/24/21 10/24/22 10/24/22 History umeclidinium 62.5 mcg-vilanterol 1 inh inhalation QAM 08/24/21 10/15/22 10/23/22 History 25 mcg/actuation powdr for inhalation (Anoro Ellipta) cholecalciferol (vitamin D3) 50 50 mcg PO DAILY 10/15/22 10/15/22 10/23/22 History mcg (2,000 unit) tablet (Vitamin D3) loratadine 10 mg tablet (Allergy 10 mg PO DAILY 10/15/22 10/15/22 10/23/22 History Relief (loratadine)) lysine 500 mg tablet 500 mg PO BID 10/15/22 10/15/22 10/23/22 History magnesium 500 mg tablet 500 mg PO DAILY 10/15/22 10/15/22 10/23/22 History potassium 99 mg tablet 99 mg PO DAILY 10/15/22 10/15/22 10/23/22 History prednisone 10 mg tablet 10 mg PO DIRECTED 10/15/22 10/15/22 10/23/22 History Allergies Allergy/AdvReac Type Severity Reaction Status Date / Time pine nut Allergy Intermediate Itching Verified 10/24/22 08:20 lidocaine Allergy Unknown Tachycardia Verified 10/24/22 08:20 NOVACAINE Allergy Mild Other Uncoded 10/24/22 08:20 Review of Systems Review of Systems: All systems reviewed & are unremarkable except as noted in HPI. All systems reviewed & are unremarkable except as noted in HPI and below PMFSH Past Medical History Medical History Obstructive sleep apnea on CPAP (~07/2021) With CPAP pressures between 8 and 12. COPD (chronic obstructive pulmonary disease) Multinodular goiter (~09/2019) With thyroid biopsy demonstrating benign follicle February 2020 Mild pulmonary hypertension Noted on echocardiogram 09/2019 Diastolic heart failure Echocardiogram 09/2019: Grade 2 diastolic dysfunction, EF greater than 70 present, mild pulmonary hypertension, trace mitral valve regurgitation, mild tricuspid valve regurgitation Chronic kidney disease (CKD) Baseline creatinine between 1.2-1.5 Colon ulcer 1999 Diverticulitis Nicotine dependence with current use Depressive disorder, not elsewhere classified Essential (primary) hypertension Methicillin resistant Staphylococcus aureus infection on her back in 2009 Mixed hyperlipidemia Nicotine dependence, unspecified, in remission Surgical History Surgical History H/O arthroscopy of knee x3 on right knee, x1 on left knee Family History Family History Father Congestive heart failure Family history of coronary artery disease Chronic obstructive pulmonary disease Hypertension Acute myocardial infarction Mother Diabetes mellitus Chronic obstructive pulmonary disease Hypertension Asthma Acute myocardial infarction Sibling Chronic obstructive pulmonary disease Hypertension Asthma Social History Social History Social History: The patient has smoked since she was a teenager. She has smoked a little less than a pack of cigarettes per day for 47 years. She had quit smoking for 2 and half to 3 years but started smoking again several years ago. She quit smoking September 2019. She drinks a couple of alcoholic beverages a month. Primary Care Physician: Dr. Ollie Renner Code status: Full Code Smoking packs per day: 0.5 Smoking cigarettes per day: 10.0 Years smoked: 30 Smoking pack-years: 15.00 Smoking status: Former smoker Tobacco type: cigarettes Second hand tobacco smoke exposure: Yes Smoking end date: 09/12/19 Alcohol intake: current Drinks per week: 1 Substance use: never Substance use type: does not use Living arrangements: with family Additional living arrangements comments: She currently lives alone but watches her grandchildren every Friday. She lives at home with her 2 cats. She also watches a friends dogs. 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 Gender identity (if verbalized by the patient): Female Spiritual care concerns: No Agree to blood products: Yes Exam Narrative: GENERAL: Well appearing, well-nourished, non-toxic, in no acute distress. HEAD: Normocephalic, atraumatic. RESPIRATORY: Airway patent, respirations nonlabored. CARDIOVASCULAR: Regular rate and rhythm. Radial pulses strong and easily palpable. MUSCULOSKELETAL: Moves all extremities. No gross deformities. 1.5cm laceration to distal finger pad of R 3rd digit, minimal active bleeding. No involvement of nail. Sensation intact. Capillary refill intact. SKIN: Warm, dry, normal color. NEURO: A&O X3. Speech clear. Cranial nerves II-XII grossly intact. Steady gait. No ataxic movements. PSYCHIATRIC: Appropriate mood and affect. Normal interaction. Course Vital Signs Vital signs: Vital Signs Temperature 97.8 F 07/07/24 18:03 Pulse Rate 79 07/07/24 18:03 Respiratory Rate 16 07/07/24 18:03 Blood Pressure 124/98 H 07/07/24 18:03 Pulse Oximetry 100 07/07/24 18:03 Oxygen Delivery Room Air 07/07/24 18:03 Temperature 97.8 F 07/07/24 18:03 Pulse Rate 79 07/07/24 18:03 Respiratory Rate 16 07/07/24 18:03 Blood Pressure 124/98 H 07/07/24 18:03 Pulse Oximetry 100 07/07/24 18:03 Oxygen Delivery Room Air 07/07/24 18:03 Procedures Laceration Laceration 1: Date: 07/07/24 Time: 21:55 Site: hand Side (If applicable): right (3rd digit) Size (cm): 1.5 Description: linear Depth: simple, single layer Local Anesthetic: other anesthetic (digital block) Pre-repair: wound explored and irrigated ====== Skin Level ====== Skin layer closed with: nylon Size (cm): 4-0 Number of sutures: 4 Technique: simple, interrupted ====== Subcutaneous Layer ====== ====== Muscle Layer ====== ====== Tendon Layer ====== Nerve Block Nerve Block 1: Nerve block date: 07/07/24 Nerve block time: 21:43 Time out performed: Yes Local Anesthetic: lidocaine 1% Amount of anesthesia used (mL): 4 Side: right Nerve Blocks: digital (R 3rd digit) Procedure Successful: Yes Patient Tolerated Procedure: well and no complications Complications: none MDM - Wound/Laceration MDM Narrative Medical decision making narrative: Patient presented to ED with laceration to right 3rd digit. Neurovascularly intact. X-ray negative. Tetanus up-to-date. Digital nerve block was performed with adequate anesthesia. Laceration repaired without complications. Patient given wound care instructions and reasons to return. Discharged in stable condition. Medical Records Attestation: I reviewed the patient's medical records. Imaging Data Attestation: I personally reviewed and interpreted this imaging study as follows: Radiologist's impression: ITS Impressions Finger X-Ray 07/07/24 21:10 IMPRESSION: 1. No fracture or radiopaque foreign body. Discharge Plan Discharge Clinical Impression: Laceration of finger of right hand Qualifiers: Encounter type: initial encounter Finger: middle finger Damage to nail status: without damage Foreign body presence: without foreign body Qualified Code(s): S61.212A - Laceration without foreign body of right middle finger without damage to nail, initial encounter Patient Disposition: Home, Self-Care Condition: Stable Instructions: Antibiotic Form, Care For Your Stitches (ED), Laceration (ED) Additional Instructions: Return to the ED or visit an urgent care or your PCP for follow-up and wound check/suture removal in 10 to 14 days. Keep the wound as dry as possible for 24 hours. You may remove the bandage after 24 hours and wash with simple soap and water, but do not scrub. Return to the ED if you experience severe pain, numbness, uncontrolled bleeding, fever, chills, pus-like drainage, or redness/swelling/warmth surrounding the wound, as these could be signs of an infection. Patient Language: Polish Prescriptions: No Action magnesium 500 mg Tablet 500 mg PO DAILY prednisone 10 mg tablet 10 mg PO DIRECTED Patient Comments: TAPERING DOSE potassium 99 mg Tablet 99 mg PO DAILY lysine 500 mg Tablet 500 mg PO BID loratadine [Allergy Relief (loratadine)] 10 mg Tablet 10 mg PO DAILY cholecalciferol (vitamin D3) [Vitamin D3] 50 mcg (2,000 unit) Tablet 50 mcg PO DAILY atorvastatin 10 mg tablet 10 mg PO HS lisinopril 10 mg tablet 10 mg PO HS chlorthalidone 25 mg tablet 12.5 mg PO QAM Anoro Ellipta 62.5-25 mcg/actuation blister with device 1 inh INHALATION QAM albuterol sulfate 90 mcg/actuation aerosol powdr breath activated 2 inhalation INHALATION QID PRN (Reason: shortness of breath) Rx Instructions: Use 4x/day and wean down to use as needed. calcium carbonate-vitamin D3 600 mg(1,500mg) -500 unit Tablet Extended Release 24 Hr 1 tablet PO HS diltiazem HCl 120 mg Capsule,Extended Release 24 Hr 120 mg PO QAM Qty: 30 0RF Eliquis 5 mg Tablet 5 mg PO Q12HR Qty: 60 0RF Follow-up/Referrals: Nitin,Bull Rodriguez MD [Primary Care Provider] - Time of Disposition: 22:10
--- OUTSIDE RECORDS SUMMARY | 2024-07-14 22:31 | XMS_ITS | Referral Summary ---
Author Organization [facility] [address] Address [address] [place] [address] Care Team Providers Care Child Support Specialist Name Role Phone Bull Taveras MD Primary Care Provider Nahomi Boyce RN Unavailable Unavailabl e Encounters Date Type Department Care Team Description 07/07/2024 Orders Only [facility] [address] [facility] [address] [place] for [facility] [place] [address] Bull Taveras MD 07/05/2024 Telephone [facility] Pulmonary [address] [facility] 8th [place] [address] [place] [address] Nahomi Boyce RN 07/05/2024 Documentation [facility] [address] [facility] 8th [place] [address] [place] [address] Conner Vale MD 06/23/2024 10:15 AM LAMP SHADE JOINER - 06/23/2024 11:59 PM LAMP SHADE JOINER Hospital Encounter [address] [address] DEANNE (obstructive sleep apnea); Chronic obstructive pulmonary disease, unspecified COPD type (HCC); Atrial fibrillation, unspecified type (HCC) Discharge Disposition: Discharge to home or self care 05/14/2024 Telephone [facility] 8th [place] [address] [place] [address] Pooja Andrews RN 05/14/2024 11:45 AM CDT Lab [address] [address] SOB (shortness of breath); Acute cough 05/14/2024 11:41 AM CDT - 05/14/2024 11:59 PM CDT Hospital Encounter [facility] [address] [place] [address] SOB (shortness of breath); Acute cough Discharge Disposition: Discharge to home or self care 05/14/2024 Orders Only [facility] [address] [facility] 8th [place] [address] [place] [address] Conner Vale MD SOB (shortness of breath) (Primary Dx); Acute cough 04/26/2024 11:00 AM CDT Office Visit [facility] [address] [facility] [address] [place] [address] Unique Hurst NP Arthritis of both knees (Primary Dx) from Last 3 Months Allergies Active Allergy Reactions Criticality Noted Date Comments Cinnamon Flushing (skin) Low 09/07/2021 Procaine Anaphylaxis High 10/17/2020 Heart races Lemmon Nut Itching,Swelling Medium 09/07/2021 Medications cetirizine (ZyrTEC) 10 mg tablet Take 1 tablet (10 mg total) by mouth daily [employer] Brand Allergy Active cholecalciferol (VITAMIN D-3) 25 mcg (1,000 unit) tabletIndication s:CKD Take 1 tablet (1,000 Units total) by mouth daily 30 tablet 03/27/20 21 Active magnesium oxide 400 mg magnesium capsule Take by mouth Active umeclidinium-su anteroL (Anoro Ellipta) 62.5-25 mcg/actuation blister with device Inhale 1 puff by mouth once daily 60 each 02/02/20 24 Active albuterol HFA (PROVENTIL HFA,VENTOLIN HFA,PROAIR HFA) 90 mcg/actuation inhaler INHALE 2 PUFFS BY MOUTH EVERY 4 HOURS NEEDED FOR WHEEZING 18 g 03/08/20 24 Active Eliquis 5 mg tablet TAKE 1 TABLET BY MOUTH EVERY 12 HOURS 180 tablet 04/02/20 24 Active chlorthalidone (HYGROTON) 25 mg tabletIndication s:Essential hypertension Take 1/2 (one-half) tablet by mouth once daily 30 tablet 2 04/15/20 24 Active lisinopriL (PRINIVIL,ZESTRI L) 10 mg tablet Take 1 tablet by mouth once daily 90 tablet 06/07/20 24 Active dilTIAZem CD 120 mg 24 hr capsule Take 1 capsule by mouth once daily 90 capsule 06/24/20 24 Active dilTIAZem CD 120 mg 24 hr capsule Take 1 capsule by mouth once daily 90 capsule 03/26/20 24 024 Discontinued Hospital, Clinic, or Other Facility Administered Medication Ordered Dose Route Frequency Start Date End Date Status perflutren protein-a (OPTISON) 3 mL in sodium chloride 0.9% 8 mL syringe 1 - 8 mL IV Once in imaging 02/23/2024 Active Active Problems Problem Noted Date Diagnosed Date Functional diarrhea 10/21/2023 Atrial fibrillation (CMS/HCC) 09/07/2021 Assessment & Plan (09/07/2021 8:45 AM LAMP SHADE JOINER): New onset atrial fibrillation. Currently appears to be in normal sinus rhythm. Is on anticoagulation and diltiazem. Uses her CPAP mask faithfully. Will check TSH T4 and T3. Has upcoming appointment with Cardiology. Hyperlipidemia 08/07/2021 Assessment & Plan (09/07/2021 8:45 AM LAMP SHADE JOINER): On medication doing well DERICK (renal osteodystrophy) 03/27/2021 Chronic obstructive pulmonary disease 03/27/2021 Stage 3a chronic kidney disease 11/22/2020 Assessment & Plan (09/07/2021 8:45 AM LAMP SHADE JOINER): Has been following with Nephrology. Assessment & Plan (11/22/2020 8:45 AM CDT): Will do 24 hour urine for total protein and creatinine clearance. Also do renal ultrasound. Essential hypertension 10/17/2020 Overview (10/17/2020): Check urinalysis and CMP. May need to augment antihypertensives Assessment & Plan (09/07/2021 8:45 AM LAMP SHADE JOINER): Blood pressure is at target on today's medications. Continue current medication for target directed therapy Assessment & Plan (11/22/2020 8:45 AM CDT): Blood pressure is at target doing well. Polyarthritis 10/17/2020 Overview (10/17/2020): Will re-screening rheumatologic studies Assessment & Plan (09/07/2021 8:45 AM LAMP SHADE JOINER): Has recently seen Dr. Lopez for evaluation of hand pain Assessment & Plan (11/22/2020 8:45 AM CDT): Would be concerned about seronegative rheumatoid arthritis. Currently on prednisone every other day and Plaquenil daily. Will refer to Rheumatology. 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 Thyroid nodule 10/17/2020 Overview (10/17/2020): Will need follow-up ultrasound in February Assessment & Plan (09/07/2021 8:45 AM LAMP SHADE JOINER): Check TSH T4 and T3. Thyroid exam is unchanged Shortness of breath DEANNE (obstructive sleep apnea) Immunizations Name Administration Dates Next Due Influenza, Quadrivalent, Hig h Dose, Preservative Free, Intrr 07/03/2020 Influenza, Quadrivalent, Rec ombinant, Egg Free, Preservative Free, Intramuscular 07/29/2019 Influenza, Quadrivalent, Spl it, Preservative Free, Intramuscular 07/16/2013 Moderna SARS-CoV-2 Monovalent Vaccination (12+ Y RS) 09/26/2020,08/23/2020 Pneumococcal Conjugate PCV 13 07/29/2019 Social History Tobacco Use Types Packs/Day Years Used Date Smoking Tobacco: Former Cigarettes Q uit: 12/13/2019 Smokeless Tobacco: Never Tobacco Cessation:Counseling Given: Not Answered AUDIT-C Answer Date Recorded Frequency of Alcohol Consumption Not on file 12/02/2023 Q2: How many drinks containi ng alcohol do you have on a typical day when you are drinking? Patient does not drink Frequency of Binge Drinking Not on file 11/12 Comments Unknown Sex and Gender Information Value Date Recorded Sex Assigned at Not on file Legal Sex Female 6:46 AM LAMP SHADE JOINER Gender Identity Not on file Sexual Orientation Straight 03/05/2021 1: 44 PM CDT Occupation Industry Job Start Date Job End Date 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 Not on file Not on file Not on file Last Filed Vital Signs Vital Sign Reading Time Taken Comments Blood Pressure 128/62 01/26/2024 8:59 AM CDT Pulse 68 01/26/2024 8:59 AM CDT Temperature 36.4 ??C (97.6 ??F) 12/02/2023 12:10 PM C DT Respiratory Rate 18 11/12/2022 3:42 PM CDT Oxygen Saturation 98% 01/26/2024 8:59 AM CDT Inhaled Oxygen Concentration - - Weight 90.3 kg (199 lb) 01/26/2024 8:59 AM CDT Height 163.8 cm (5' 4.5 ) 01/26/2024 8:59 AM CDT Body Mass Index 33.63 01/26/2024 8:59 AM CDT Plan of Treatment Scheduled Procedures Name Priority Associated Diagnoses Date/Ti me COLONOSCOPY Encounter for screening colonoscopy COLONOSCOPY Encounter for screening colonoscopy Procedures Procedure Name Priority Date/Time Associated Diagnosis Comments SCAN - RADIOLOGY/IMAGING 07/07/2024 9:[address] CHEST WO CONTRAST Schedule Routine, Read Routine (OP Routine) 06/23/2024 10:35 AM LAMP SHADE JOINER DEANNE (obstructive sleep apnea) Chronic obstructive pulmonary disease, unspecified COPD type (HCC) Atrial fibrillation, unspecified type (HCC) XR CHEST PA LATERAL 2 VIEWS Schedule Routine, Read Routine (OP Routine) 05/14/2024 12:02 PM CDT SOB (shortness of breath) Acute cough RESPIRATORY PATHOGEN PANEL Routine 05/14/2024 11:50 AM CDT SOB (shortness of breath) Acute cough [place] ARTHROCENTESIS ASPIR&/INJ MAJOR JT/BURSA W/O US Routine 04/26/2024 11:00 AM CDT Arthritis of both knees SCREENING MAMMOGRAM 2D BILATERAL Schedule Routine, Read Routine (OP Routine) 09/05/2020 from Last 3 Months or Most Recently Relevant to Health Maintenance Results * SCAN - RADIOLOGY/IMAGING (07/07/2024 9:21 PM LAMP SHADE JOINER) Anatomical Region Laterality Modality Other Bull Taveras MD Final Result * CT Chest WO Contrast (06/23/2024 10:35 AM LAMP SHADE JOINER) Anatomical Region Laterality Modality Body N/A Computed Tomogra phy 06/30/2024 3:54 PM LAMP SHADE JOINER Narrative 06/30/2024 4:00 PM LAMP SHADE JOINER EXAM DESCRIPTION: ?? CT CHEST WO CONTRAST REASON FOR STUDY: ?? annual lung cnacer screening ?? F/u from previous scan, patient states no current complaint ? TECHNIQUE: CT scan of the chest performed without intravenous contrast using helical scanning technique. Reconstructed coronal and sagittal MPR images reviewed. ??All images stored on PACS. ??Automated exposure control was used as a dose optimization technique for this examination. COMPARISON: 07/01/2023 FINDINGS: The sensitivity for detection of solid visceral lesions is diminished without the use of intravenous contrast. LUNGS: ?? Mild apical predominant centrilobular emphysema. ??Calcified granuloma in the right upper lobe. ??No suspicious pulmonary nodule is identified. ??No focal consolidation. ?? No pulmonary edema. ??No pulmonary fibrosis. PLEURA: ?? No effusion. No pneumothorax. MEDIASTINUM/LAZARA: ?? No identified masses or abnormal nodes. ?? Small fat containing left Bochdalek hernia. ??Multinodular goiter with substernal extension. HEART: ?? Heart size is normal with no pericardial effusion. CORONARY ARTERY CALCIFICATION: ??Mild coronary artery calcification. VASCULATURE: ?? No thoracic aortic aneurysm. AXILLA: ?? No adenopathy. CHEST WALL: ?? No masses. ??No subcutaneous air. HARDWARE/LINES/TUBES: ?? None. UPPER ABDOMEN: ?? No significant abnormality. ?? Multiple calcifications in the spleen representing sequela of prior granulomatous disease. MUSCULOSKELETAL: ?? Multiple Schmorl's nodes of the thoracic spine with mild degenerative changes. ??No suspicious sclerotic or lytic lesion is identified OTHER: ?? No other significant abnormality. IMPRESSION: No suspicious pulmonary nodule identified. ??Consider continued annual follow-up with the low-dose lung cancer screening chest CT protocol if the patient qualifies based on clinical factors and smoking history. ?? Mild centrilobular emphysema. Multinodular goiter with substernal extension. THIS IS AN ELECTRONICALLY VERIFIED FINAL REPORT 06/30/2024 4:00 PM - Electronically signed by ??Tj Patel M.D. MM: MM D: ??06/30/2024 4:00 PM T: ??06/30/2024 4:00 PM Report ID: [id number] Reading Location: ??[id number] Procedure Note Tj Patel MD - 06/30/2024 EXAM DESCRIPTION: CT CHEST WO CONTRAST REASON FOR STUDY: annual lung cnacer screening F/u from previous scan, patient states no current complaint TECHNIQUE: CT scan of the chest performed without intravenous contrastusing helical scanning technique. Reconstructed coronal and sagittal MPR images reviewed. All images stored on PACS. Automated exposure control was usedas a dose optimization technique for this examination. COMPARISON: 07/01/2023 FINDINGS: The sensitivity for detection of solid visceral lesions is diminishedwithout the use of intravenous contrast. LUNGS: Mild apical predominant centrilobular emphysema. Calcifiedgranuloma in the right upper lobe. No suspicious pulmonary nodule is identified.No focal consolidation. No pulmonary edema. No pulmonary fibrosis. PLEURA: No effusion. No pneumothorax. MEDIASTINUM/LAZARA: No identified masses or abnormal nodes. Small fat containing left Bochdalek hernia. Multinodular goiter with substernal extension. HEART: Heart size is normal with no pericardial effusion. CORONARY ARTERY CALCIFICATION: Mild coronary artery calcification. VASCULATURE: No thoracic aortic aneurysm. AXILLA: No adenopathy. CHEST WALL: No masses. No subcutaneous air. HARDWARE/LINES/TUBES: None. UPPER ABDOMEN: No significant abnormality. Multiple calcifications inthe spleen representing sequela of prior granulomatous disease. MUSCULOSKELETAL: Multiple Schmorl's nodes of the thoracic spine withmild degenerative changes. No suspicious sclerotic or lytic lesion isidentified OTHER: No other significant abnormality. IMPRESSION: No suspicious pulmonary nodule identified. Consider continued annual follow-up with the low-dose lung cancer screening chest CT protocol if the patient qualifies based on clinical factors and smoking history. Mild centrilobular emphysema. Multinodular goiter with substernal extension. THIS IS AN ELECTRONICALLY VERIFIED FINAL REPORT 06/30/2024 4:00 PM - Electronically signed by Tj Patel M.D. MM: MM Report ID: [id number] Reading Location: [id number] Conner Vale MD IM CT PROCEDURES Final Result * X-ray chest 2 views (05/14/2024 12:02 PM CDT) Anatomical Region Laterality Modality Body, Chest N/A Computed Radiogr aphy 05/17/2024 4:19 AM LAMP SHADE JOINER Narrative 05/17/2024 4:24 AM LAMP SHADE JOINER EXAM DESCRIPTION: ?? XR CHEST PA LATERAL 2 VIEWS REASON FOR STUDY: ?? SOB ?? Coughing, burning in chest x Friday ??Hx of COPD ??No prior surgeries ?? Former smoker ?? TECHNIQUE: Frontal and lateral ??radiographic views of the chest acquired. COMPARISON: ?? Chest x-ray of November 21, 2022. FINDINGS: LUNGS/PLEURA: ??No focal consolidation or pneumothorax. No pleural effusion. HEART/MEDIASTINUM: Cardiac silhouette is ??normal. ??Remaining mediastinal silhouettes are unremarkable. HARDWARE/LINES/TUBES: ??None. BONES: ??There is degenerative change throughout the thoracic spine. IMPRESSION: ??No acute cardiopulmonary abnormality. THIS IS AN ELECTRONICALLY VERIFIED FINAL REPORT 05/17/2024 4:24 AM - Electronically signed by ??Jacqui Perry M.D. SN: SN D: ??05/17/2024 4:24 AM T: ??05/17/2024 4:24 AM Report ID: [id number] Reading Location: ??[id number] Procedure Note Jacqui Perry MD - 05/17/2024 EXAM DESCRIPTION: XR CHEST PA LATERAL 2 VIEWS REASON FOR STUDY: SOB Coughing, burning in chest x Friday Hx of COPD No prior surgeriesFormer smoker TECHNIQUE: Frontal and lateral radiographic views of the chestacquired. COMPARISON: Chest x-ray of November 21, 2022. FINDINGS: LUNGS/PLEURA: No focal consolidation or pneumothorax. No pleuraleffusion. HEART/MEDIASTINUM: Cardiac silhouette is normal. Remaining mediastinal silhouettes are unremarkable. HARDWARE/LINES/TUBES: None. BONES: There is degenerative change throughout the thoracic spine. IMPRESSION: No acute cardiopulmonary abnormality. THIS IS AN ELECTRONICALLY VERIFIED FINAL REPORT 05/17/2024 4:24 AM - Electronically signed by Jacqui Perry M.D. SN: SN Report ID: [id number] Reading Location: [place] [address] Conner Vale MD IMG XR PROCEDURES Final Result * (ABNORMAL) Respiratory pathogen panel Nasopharyngeal (05/14/2024 11:50 AM CDT) Influenza A RNA Not Detected Not Detected Comment:Testing performed by : [address] [address] Influenza B RNA Not Detected Not Detected [facility] ([place] Comment:Testing performed by : [address] [address] RSV RNA Not Detected Not Detected [facility] ([place]) Comment:Testing performed by : [address] [address] COVID-19 RNA Not Detected Not Detected [facility] ([place]) Comment:Testing performed by : [address] [address] Coronavirus 229E RNA Not Detected Not Detected [facility] ([place]) Comment:Testing performed by : [address] [address] Coronavirus HKU1 RNA Not Detected Not Detected [facility] ([place]) Comment:Testing performed by : [address], [place]., [address] Coronavirus NL63 RNA Not Detected Not Detected [facility] ([place]) Comment:Testing performed by : [facility], [address] [place] [address]., [address] Coronavirus OC43 RNA Not Detected Not Detected [facility] ([place]) Comment:Testing performed by : [facility], [address] [place] [address]., [address] Adenovirus DNA Not Detected Not Detected [facility] ([place]) Comment:Testing performed by : [facility], [address] [place] [address]., [address] Metapneumovirus RNA Not Detected Not Detected [facility] ([place]) Comment:Testing performed by : [facility], [address] [place] [address]., [address] Rhinovirus/Enterov irus RNA Detected(A) Not Detected [facility] ([place]) Comment:Testing performed by : [facility], [address] [place] [address]., [address] Parainfluenza 1 RNA Not Detected Not Detected [facility] ([place]) Comment:Testing performed by : [facility], [address] [place] [address]., [address] Parainfluenza 2 RNA Not Detected Not Detected [facility] ([place]) Comment:Testing performed by : [facility], [address] [place] [address]., [address] Parainfluenza 3 RNA Not Detected Not Detected [facility] ([place]) Comment:Testing performed by : [facility], [address] [place] [address]., [address] Parainfluenza 4 RNA Not Detected Not Detected [facility] ([place]) Comment:Testing performed by : [facility], [address] [place] [address]., [address] B. pertussis DNA Not Detected Not Detected [facility] ([place]) Comment:Testing performed by : [facility], [address] [place] [address], [id number] B. parapertussis DNA Not Detected Not Detected [facility] ([place]) Comment:Testing performed by : [facility], [address] [place] [address]., [address] C. pneumoniae DNA Not Detected Not Detected [facility] ([place]) Comment:Testing performed by : [facility], [address] [place] [address], [address] M. pneumoniae DNA Not Detected Not Detected [facility] ([place]) Comment: Interpretive Data The [employer] FilmArray Respiratory Panel (RP2.1) assay is a multiplexed real-time PCR based nucleic acid test capable of simultaneous qualitative detection and identification of multiple respiratory viral and bacterial nucleic acids, including SARS Coronavirus 2 (the causative agent of COVID-19). The following bacteria, viruses and virus subtypes can be identified using the FilmArray RP2.1 assay: Bordetella pertussis, Bordetella parapertussis, Chlamydia pneumoniae, Mycoplasma pneumoniae, Adenovirus, SARS Coronavirus 2, seasonal coronaviruses (Coronavirus HKU1, Coronavirus NL63, Coronavirus 229E, and Coronavirus OC43), Influenza A, Influenza A subtype H1, Influenza A subtype H3, Influenza A subtype 2009 H1, Influenza B, Metapneumovirus, Parainfluenza 1, Parainfluenza 2, Parainfluenza 3, Parainfluenza 4, RSV, Rhinovirus/Enterovirus. Due to the genetic similarity between human Rhinovirus and Enterovirus, the FilmArray RP2.1 assay cannot reliably differentiate them. Coronavirus OC43 may cross-react with some isolates of Coronavirus HKU1. ??A dual positive result may be due to cross-reactivity or may indicate a co-infection. The detection and identification of specific viral and bacterial nucleic acids from individuals exhibiting signs and symptoms of a respiratory infection aids in the diagnosis of respiratory infection if used in conjunction with other clinical and epidemiological information. ??The results of this test should not be used as the sole basis for diagnosis, treatment, or other management decisions. ??Negative results in the setting of a respiratory illness may be due to infection with pathogens that are not detected by this test. ??Positive results do not rule out infection/co-infection with other organisms. ??The agent(s) detected by the FilmArray RP2.1 may not be the definite cause of disease. ??Additional testing (lab, imaging, etc.) may be necessary when evaluating a patient with possible respiratory tract infection. The FilmArray RP2.1 assay has FDA clearance for testing of HOME THEATER INSTALLER swabs. ??The performance characteristics of this assay have been determined by [facility]. Current interpretive data was last revised on 2021. Testing performed by: [facility], [address] [place] [address]., [id number] Nasopharyngeal 05/14/2024 11 :50 AM CDT 05/14/2024 2:40 PM CDT Narrative [facility] ([place]) - 05/14/2024 3:44 PM CDT Is the Patient experiencing symptoms consistent with COVID?->Yes Surveillance testing for transplant patient?->No us Conner Vale MD LAB MICROBIOLOGY - GENERAL ORD ERABLES Final Result [facility] ([place]) [address] [facility] Department [place] [address] CH * [place] ARTHROCENTESIS ASPIR&/INJ MAJOR JT/BURSA W/O US (04/26/2024 11:00 AM CDT) Narrative Unique Hurst NP - 04/26/2024 11:00 AM CDT Unique Hurst NP ? 04/26/2024 10:56 PM Large Joint Injection: L knee Performed by: Unique Hurst NP Authorized by: Unique Hurst NP ?? Large Joint Injection/Aspiration: ??Consent Given by: ??Patient ??Site marked: the procedure site was marked ?Verbal consent obtained: Yes ?? Supporting Documentation: ??Indications: ??Diagnostic and pain Procedure Details: ??Location: ??Knee ??Site: ??L knee ??Prep: patient was prepped and draped in usual sterile fashion ?Needle Size: ??25 G ??Ultrasound guided: No ?Medications: ??5 mL BUPivacaine HCl 0.25 % (2.5 mg/mL); 40 mg triamcinolone 40 mg/mL ??Patient tolerance: ??Patient tolerated the procedure well with no immediate complications us Unique Hurst NP IN CLINIC/BEDSIDE ORDERABLES Final Result * Screening Mammogram 2D Bilateral (09/05/2020) Anatomical Region Laterality Modality Breast Bilateral Mammography Narrative 09/05/2020 Pt had 09/05/20 us Historical Provider MD IMG MAMMO PROCEDURES Agatha l Result from Last 3 Months or Most Recently Relevant to Health Maintenance Insurance DC[employer] MEDICARE SOLUTIONS MEDICARE SOLUTIONS [place] [id number] MEDICARE OpenRoute [place] [id number] MEDICARE SOLUTIONS [place] [id number] Care Teams Child Support Specialist Relationship Specialty Start Date End Date Bull Taveras MD [address] [facility] [address] [place] [address] PCP - General Internal Medicine 08/24/20 Nahomi Boyce, RN Registered Nurse Pulmonary Disease 11/12/22
--- OUTSIDE RECORDS SUMMARY | 2024-07-14 22:31 | XMS_ITS | Clinical Summary ---
Author [place] [facility] [place] [address] Address [address] [place] [address] Care Team Providers Care Network Contractor Name Role Phone Bull Taveras MD Primary Care Provider [phone] Nahomi Boyce RN Unavailable Unavailabl e Allergies Active Allergy Reactions Criticality Noted Date Comments Cinnamon Flushing (skin) Low 09/07/2021 Procaine Anaphylaxis High 10/17/2020 Heart races [place] Nut Itching,Swelling Medium 09/07/2021 Medications cetirizine (ZyrTEC) 10 mg tablet Take 1 tablet (10 mg total) by mouth daily [employer] Brand Allergy Active cholecalciferol (VITAMIN D-3) 25 mcg (1,000 unit) tabletIndication s:CKD Take 1 tablet (1,000 Units total) by mouth daily 30 tablet 11 03/27/20 21 Active magnesium oxide 400 mg magnesium capsule Take by mouth Active umeclidinium-su anteroL (Anoro Ellipta) 62.5-25 mcg/actuation blister with device Inhale 1 puff by mouth once daily 60 each 5 02/02/20 24 Active albuterol HFA (PROVENTIL HFA,VENTOLIN HFA,PROAIR HFA) 90 mcg/actuation inhaler INHALE 2 PUFFS BY MOUTH EVERY 4 HOURS NEEDED FOR WHEEZING 18 g 5 03/08/20 24 Active Eliquis 5 mg tablet [...] 09/07/2021 Assessment & Plan (09/07/2021 8:45 AM NEEDLE LOOM SETTER): New onset atrial fibrillation. Currently appears to be in normal sinus rhythm. Is on anticoagulation and diltiazem. Uses her CPAP mask faithfully. Will check TSH T4 and T3. Has upcoming appointment with Cardiology. Hyperlipidemia 08/07/2021 Assessment & Plan (09/07/2021 8:45 AM NEEDLE LOOM SETTER): On medication doing well DERICK (renal osteodystrophy) 03/27/2021 Chronic obstructive pulmonary disease 03/27/2021 Stage 3a chronic kidney disease 11/22/2020 Assessment & Plan (09/07/2021 8:45 AM NEEDLE LOOM SETTER): Has been following with Nephrology. Assessment & Plan (11/22/2020 8:45 AM CDT): Will do 24 hour urine for total protein and creatinine clearance. Also do renal ultrasound. Essential hypertension 10/17/2020 Overview (10/17/2020): Check urinalysis and CMP. May need to augment antihypertensives Assessment & Plan (09/07/2021 8:45 AM NEEDLE LOOM SETTER): Blood pressure is at target on today's medications. Continue current medication for target directed therapy Assessment & Plan (11/22/2020 8:45 AM CDT): Blood pressure is at target doing well. Polyarthritis 10/17/2020 Overview (10/17/2020): Will re-screening rheumatologic studies Assessment & Plan (09/07/2021 8:45 AM NEEDLE LOOM SETTER): Has recently seen Dr. Lopez for evaluation of hand pain Assessment & Plan (11/22/2020 8:45 AM CDT): Would be concerned about seronegative rheumatoid arthritis. Currently on prednisone every other day and Plaquenil daily. Will refer to Rheumatology. 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 Thyroid nodule 10/17/2020 Overview (10/17/2020): Will need follow-up ultrasound in February Assessment & Plan (09/07/2021 8:45 AM NEEDLE LOOM SETTER): Check TSH T4 and T3. Thyroid exam is unchanged Shortness of breath DEANNE (obstructive sleep apnea) Encounters Date Type Department Care Team Description 07/07/2024 Orders Only [facility] [address] [facility] [address] [facility] [place] [address] Bull Taveras MD 07/05/2024 Telephone [facility] Pulmonary [address] [facility] 8th [place] [address] [place] [address] Nahomi Boyce RN 07/05/2024 Documentation [facility] [address] [facility] 8th [place] [address] [place] [address] Conner Vale MD 06/23/2024 10:15 AM NEEDLE LOOM SETTER - 06/23/2024 11:59 PM NEEDLE LOOM SETTER Hospital Encounter [facility] [address] [place] [id number] DEANNE (obstructive sleep apnea); Chronic obstructive pulmonary disease, unspecified COPD type (HCC); Atrial fibrillation, unspecified type (HCC) Discharge Disposition: Discharge to home or self care 05/14/2024 11:45 AM CDT Lab [address] [address] SOB (shortness of breath); Acute cough 05/14/2024 11:41 AM CDT - 05/14/2024 11:59 PM CDT Hospital Encounter [facility] [address] [place] [id number] SOB (shortness of breath); Acute cough Discharge Disposition: Discharge to home or self care 05/14/2024 Telephone [facility] Pulmonary [facility] [facility] 8th [place] [address] [place] [address] Pooja Andrews RN 05/14/2024 Orders Only [facility] [address] [facility] 8th [place] [address] [place] [phone] Conner Vale MD SOB (shortness of breath) (Primary Dx); Acute cough 04/26/2024 11:00 AM CDT Office Visit [facility] Orthopaedic Surgery [address] [facility] 1st [address] [place] [address] Unique Hurst NP Arthritis of both knees (Primary Dx) from Last 3 Months Immunizations Name Administration Dates Next Due Influenza, Quadrivalent, Hig h Dose, Preservative Free, Intrr 07/03/2020 Influenza, Quadrivalent, Rec ombinant, Egg Free, Preservative Free, Intramuscular 07/29/2019 Influenza, Quadrivalent, Spl it, Preservative Free, Intramuscular 07/16/2013 Moderna SARS-CoV-2 Monovalent Vaccination (12+ Y RS) 09/26/2020,08/23/2020 Pneumococcal Conjugate PCV 13 07/29/2019 Surgical History Surgery Date Site/Laterality Comments REPAIR KNEE LIGAMENT Medical History Medical History Date Comments Arthritis Hypertension Atrial fibrillation (CMS/HCC) (HCC) Chronic kidney disease Obesity Thyroid disease Family History Medical History Relation Name Comments COPD Father Heart disease Father Hypertension Father Asthma Mother Atrial fibrillation Mother COPD Mother Diabetes Mother Hyperlipidemia Mother Kidney disease Neg Hx Relation Name Status Comments Father Mother Social History Tobacco Use Types Packs/Day Years [...] on file Legal Sex Female 6:46 AM NEEDLE LOOM SETTER Gender Identity Not on file Sexual Orientation Straight 03/05/2021 1: 44 PM CDT 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 Industry 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 Start 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 Job End Date 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 Not on file Not on file Not on file Obstetrics History Last Filed Vital Signs Vital Sign Reading [...] screening colonoscopy COLONOSCOPY Encounter for screening colonoscopy Health Maintenance Due Date Last Done Comments Depression Screening 1955 Fall Risk Assessment 1955 Hepatitis C Screening 1955 DTaP/Tdap/Td Vaccine (1 - Tdap) 02/04/1964 Hepatitis B Screening 1971 Well Visit 65+ 2018 Breast Cancer Screening-Mammogram 04/18/2023 04/18/2022, 09/05/2020 Covid-19 Vaccine (3 - 2023-2 5 season) 2024 09/26/2020, 08/23/2020 Influenza Vaccine (#1) 2024 0, 07/29/2019, 07/16/2013 Osteoporosis Screening-Bone Density Scan 04/18/2024 04/18/2022 Pneumococcal vaccine 65+ (2 of 2 - PPSV23 or PCV20) 10/20/2024 07/29/2019 Postponed from 0 09/23/2019 (Patient declined, but will receive in the future) Zoster Vaccine (1 of 2) 10/20/2024 Post poned from 2003 (Patient declined, but will receive in the future) Colon Cancer Screening-Colonoscopy 10/24/2032 10/24/2022 Procedures Procedure Name Priority Date/Time Associated Diagnosis Comments SCAN - RADIOLOGY/IMAGING 07/07/2024 9:[address] CHEST WO CONTRAST Schedule Routine, Read Routine (OP Routine) 06/23/2024 10:35 AM NEEDLE LOOM SETTER DEANNE (obstructive sleep apnea) Chronic obstructive pulmonary disease, unspecified COPD type (HCC) Atrial fibrillation, unspecified type (HCC) XR CHEST PA LATERAL 2 VIEWS Schedule Routine, Read Routine (OP Routine) 05/14/2024 12:02 PM CDT SOB (shortness of breath) Acute cough RESPIRATORY PATHOGEN PANEL Routine 05/14/2024 11:50 AM CDT SOB (shortness of breath) Acute cough UT ARTHROCENTESIS ASPIR&/INJ MAJOR JT/BURSA W/O US Routine 04/26/2024 11:00 AM CDT Arthritis of both knees SCREENING MAMMOGRAM 2D BILATERAL Schedule Routine, Read Routine (OP Routine) 09/05/2020 from Last 3 Months or Most Recently Relevant to Health Maintenance Results * SCAN - RADIOLOGY/IMAGING (07/07/2024 9:21 PM NEEDLE LOOM SETTER) Anatomical Region Laterality Modality Other us Bull Taveras MD Final Result * CT Chest WO Contrast (06/23/2024 10:35 AM NEEDLE LOOM SETTER) Anatomical Region Laterality Modality Body N/A Computed Tomogra phy 06/30/2024 3:54 PM NEEDLE LOOM SETTER Narrative 06/30/2024 4:00 PM NEEDLE LOOM SETTER EXAM DESCRIPTION: ?? CT CHEST WO CONTRAST [...] PM T: ??06/30/2024 4:00 PM Report ID: [id number] Reading Location: ??[id number] Procedure Note Tj Patel MD - 06/30/2024 [...] Tj Patel M.D. MM: MM Report ID: [id number] Reading Location: [id number] Conner Vale MD IM CT PROCEDURES Final Result * X-ray chest 2 views (05/14/2024 12:02 PM CDT) Anatomical Region Laterality Modality Body, Chest N/A Computed Radiogr aphy 05/17/2024 4:19 AM NEEDLE LOOM SETTER Narrative 05/17/2024 4:24 AM NEEDLE LOOM SETTER EXAM DESCRIPTION: ?? XR CHEST PA LATERAL [...] AM T: ??05/17/2024 4:24 AM Report ID: [id number] Reading Location: ??[id number] Procedure Note Jacqui Perry MD - 05/17/2024 [...] Jacqui Perry M.D. SN: SN Report ID: [id number] Reading Location: [place] [address] Conner Vale MD IMG XR PROCEDURES Final Result * (ABNORMAL) Respiratory pathogen panel Nasopharyngeal (05/14/2024 11:50 AM CDT) Influenza A RNA Not Detected Not Detected CH Comment:Testing performed by : [facility], [address] [place] [address], [address] Influenza B RNA Not Detected Not Detected [facility] ([facility]) Comment:Testing performed by : [address], [address] RSV RNA Not Detected Not Detected [facility] ([facility]) Comment:Testing performed by : [address], [address] COVID-19 RNA Not Detected Not Detected [facility] ([facility]) Comment:Testing performed by : [address], [address] Coronavirus 229E RNA Not Detected Not Detected [facility] ([facility]) Comment:Testing performed by : [address] [address] Coronavirus HKU1 RNA Not Detected Not Detected [facility] ([facility]) Comment:Testing performed by : [address] [address] Coronavirus NL63 RNA Not Detected Not Detected [facility] ([facility]) Comment:Testing performed by : [address], [address] Coronavirus OC43 RNA Not Detected Not Detected [facility] ([facility]) Comment:Testing performed by : [address], [address] Adenovirus DNA Not Detected Not Detected [facility] ([facility]) Comment:Testing performed by : [address], [address] Metapneumovirus RNA Not Detected Not Detected [facility] ([facility]) Comment:Testing performed by : [facility], [address] [place] [address], [address] Rhinovirus/Enterov irus RNA Detected(A) Not Detected [facility] ([facility]) Comment:Testing performed by : [facility], [address] [place] [address], [address] Parainfluenza 1 RNA Not Detected Not Detected [facility] ([facility]) Comment:Testing performed by : [facility], [address] [place] [address], [address] Parainfluenza 2 RNA Not Detected Not Detected [facility] ([place]) Comment:Testing performed by : [facility], [address] [place] [address], [address] Parainfluenza 3 RNA Not Detected Not Detected [facility] ([facility]) Comment:Testing performed by : [facility], [address] [place] [address], [address] Parainfluenza 4 RNA Not Detected Not Detected [facility] ([facility]) Comment:Testing performed by : [facility], [address] [place] [address], [address] B. pertussis DNA Not Detected Not Detected [facility] ([facility]) Comment:Testing performed by : [facility], [address] [place] [address], [address] B. parapertussis DNA Not Detected Not Detected [facility] ([facility]) Comment:Testing performed by : [facility], [address] [place] [address], [address] C. pneumoniae DNA Not Detected Not Detected [facility] ([facility]) Comment:Testing performed by : [address], [address] M. pneumoniae DNA Not Detected Not Detected [facility] ([facility]) Comment: Interpretive Data The [employer] FilmArray Respiratory Panel (RP2.1) assay is a [...] assay has FDA clearance for testing of FLUE DUST LABORER swabs. ??The performance characteristics of this assay have been determined by [facility]. Current interpretive data was last revised on 2021. Testing performed by: [facility], [address] [place] [address]., [id number] Nasopharyngeal 05/14/2024 11 :50 AM CDT 05/14/2024 2:40 PM CDT Narrative [facility] ([place]) - 05/14/2024 3:44 PM CDT Is the Patient experiencing symptoms consistent with COVID?->Yes Surveillance testing for transplant patient?->No us Conner Vale MD LAB MICROBIOLOGY - GENERAL ORD ERABLES Final Result CARMELLA MARSH ([place]) [address] [facility] [place] [address] [phone] CH * UT ARTHROCENTESIS ASPIR&/INJ MAJOR JT/BURSA W/O US (04/26/2024 [...] the procedure well with no immediate complications Unique Hurst NP IN CLINIC/BEDSIDE ORDERABLES Final Result * Screening Mammogram 2D Bilateral (09/05/2020) Anatomical Region Laterality Modality Breast Bilateral Mammography Narrative 09/05/2020 Pt had 09/05/20 Historical Provider MD TAM MAMMO PROCEDURES Agatha l Result from Last 3 Months or Most Recently Relevant to Health Maintenance Insurance [facility] H[facility] REF IDPA MEDICARE [employer] MED[employer]ARE [employer] Member Subscriber Plan / Payer (Ef fective 2022-Present) Name:Lisa Scott Relation to Subscriber:Self Name:Lisa Scott Payer ID:[id number] (NAIC) Type:UHC MEDICARE Address: [address] [place] [phone] MEDICARE SOL[employer]IONS Care Teams Network Contractor Relationship Specialty Start Date End Date Bull Taveras MD [address] [address] PCP - General Internal Medicine 08/24/20 Nahomi Boyce, RN Registered Nurse Pulmonary Disease 11/12/22
--- OUTSIDE RECORDS SUMMARY | 2024-07-14 22:32 | XMS_ITS | Encounter Summary ---
Author Organization [facility] Address [address] [place] [address] Phone Care Team Providers Care Associate Professor Of Biblical Studies Name Role Phone Bull Taveras MD Primary Care Provider [phone] Nahomi Boyce RN Unavailable Unavailabl e Encounter Details Date Type Department Care Team (Late st Contact Info) Description 03/02/2024 Orders Only [facility] Nephrology [address] [facility] Advanced Medicine 5th [place] [address] [place] [address] Aj Campos MD [address] [place], [place] [id number] Essential hypertension (Primary Dx); Stage 3a chronic kidney disease (HCC); DERICK (renal osteodystrophy); Hyperlipidemia, unspecified hyperlipidemia type Social History Tobacco Use Types Packs/Day Years Used Date Smoking Tobacco: Former Cigarettes Q uit: 12/13/2019 Smokeless Tobacco: Never AUDIT-C Answer Date Recorded Frequency of Alcohol Consumption Not on file 12/02/2023 Q2: How many drinks containi ng alcohol do you have on a typical day when you are drinking? 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 Gender Identity Not on file Sexual Orientation Straight 03/05/2021 1: 44 PM CDT documented as of this encounter Plan of Treatment Scheduled Procedures Name Priority Associated Diagnoses Date/Ti me COLONOSCOPY Encounter for screening colonoscopy COLONOSCOPY Encounter for screening colonoscopy documented as of this encounter Procedures Procedure Name Priority Date/Time Associated Diagnosis Comments SPECIMEN STATUS REPORT Routine 03/08/2024 8:30 AM CDT MICROSCOPIC EXAMINATION Routine 03/08/2024 8:30 AM CDT THYROID FUNCTION CASCADE Routine 03/08/2024 8:30 AM CDT URINALYSIS AND REFLEX TO MICROSCOPIC Routine 03/08/2024 8:30 AM CDT Essential hypertension Stage 3a chronic kidney disease (HCC) DERICK (renal osteodystrophy) Hyperlipidemia, unspecified hyperlipidemia type CBC WITH AUTO DIFFERENTIAL Routine 03/08/2024 8:30 AM CDT Essential hypertension Stage 3a chronic kidney disease (HCC) DERICK (renal osteodystrophy) Hyperlipidemia, unspecified hyperlipidemia type PROTEIN / CREATININE RATIO, URINE, RANDOM Routine 03/08/2024 8:30 AM CDT Essential hypertension Stage 3a chronic kidney disease (HCC) DERICK (renal osteodystrophy) Hyperlipidemia, unspecified hyperlipidemia type VITAMIN D 25 HYDROXY Routine 03/08/2024 8:30 AM CDT Essential hypertension Stage 3a chronic kidney disease (HCC) DERICK (renal osteodystrophy) Hyperlipidemia, unspecified hyperlipidemia type PTH Routine 03/08/2024 8:30 AM CDT Essential hypertension Stage 3a chronic kidney disease (HCC) DERICK (renal osteodystrophy) Hyperlipidemia, unspecified hyperlipidemia type RENAL FUNCTION PANEL Routine 03/08/2024 8:30 AM CDT Essential hypertension Stage 3a chronic kidney disease (HCC) DERICK (renal osteodystrophy) Hyperlipidemia, unspecified hyperlipidemia type BASIC METABOLIC PANEL Routine 03/08/2024 8:30 AM CDT documented in this encounter Results * Thyroid Function [place] (03/08/2024 8:30 AM CDT) TSH 0.562 0.450 - 4.500 uIU/mL [facility] - 01 Comment: No apparent thyroid disorder. Additional testing not indicated. In rare instances, Secondary Hypothyroidism as well as Subclinical Hypothyroidism have been reported in some patients with normal TSH values. 03/08/2024 8:30 AM CDT 03/08/2024 Narrative [facility] - 03/09/2024 2:11 PM CDT Performed at: ??01 - [address] ??[id number] Adobe Maker: Singh Chavez PhD, Phone: ??[phone] Aj Starks MD LAB BLOOD O RDERABLES Final Result Performing Organization Address [facility] Co de Phone Number [facility] - 01 * Specimen Status Report (03/08/2024 8:30 AM CDT) Pathologist [facility] Specimen Status Report Comment [facility] - 01 Comment: Written Authorization Written Authorization Written Authorization Received. Authorization received from Zora Larson 03-09-2024 Logged by Sonya Rodriguez 03/08/2024 8:30 AM CDT 03/08/2024 Narrative [facility] - 03/09/2024 12:11 PM CDT Performed at: ??01 - [address] ??[id number] Adobe Maker: Singh Chavez PhD, Phone: ??[phone] Aj Starks MD LAB BLOOD O RDERABLES Final Result Performing Organization Address [facility] Co de Phone Number [facility] - 01 * (ABNORMAL) Basic metabolic panel (03/08/2024 8:30 AM CDT) Glucose 97 70 - 99 mg/dL [facility] - 01 BUN 27 8 - 27 mg/dL [facility] - 01 Creatinine, Serum 1.40(H) 0.57 - 1.00 mg/dL [facility] - 01 eGFR 40(L) >59 mL/min/1.7 3 [facility] - 01 BUN/creat ratio 19 12 - 28 [facility] - 01 Sodium 141 134 - 144 mmol/L [facility] - 01 Potassium, sr 4.5 3.5 - 5.2 mmol/L [facility] - 01 Chloride 103 96 - 106 mmol/L [facility] - 01 CO2 21 20 - 29 mmol/L [facility] - 01 Calcium 9.7 8.7 - 10.3 mg/dL [facility] - 01 03/08/2024 8:30 AM CDT 03/08/2024 Narrative [facility] - 03/09/2024 12:11 PM CDT Performed at: ??01 - [facility] ??[id number] Adobe Maker: Singh Chavez PhD, Phone: ??[phone] us Aj Starks MD LAB BLOOD O RDERABLES Final Result [facility] - 01 * (ABNORMAL) Microscopic Examination (03/08/2024 8:30 AM CDT) Pathologist [facility] WBC, ur 11-30(A) 0 - 5 /hpf [facility] - 01 RBC, ur 0-2 0 - 2 /hpf [facility] - 01 Epithelial cells, non-renal, ur 0-10 0 - 10 /hpf [facility] - 01 Casts None seen None seen /lpf [facility] - 01 Bacteria, ur None seen None seen/Few [facility] - 01 03/08/2024 8:30 AM CDT 03/08/2024 Narrative [facility] - 03/09/2024 2:08 AM CDT Performed at: ??01 - [facility] [address] ??[id number] Adobe Maker: Singh Chavez PhD, Phone: ??[phone] Aj Starks MD LAB BLOOD O RDERABLES Final Result Performing Organization Address [facility] Co de Phone Number [facility] * Vitamin D 25 hydroxy (03/08/2024 8:30 AM CDT) Vitamin D, 25-Hydroxy 58.3 30.0 - 100.0 ng/mL [facility] - Comment: Vitamin D deficiency has been defined by the [place] of Medicine and an Endocrine Society practice guideline as a level of serum 25-OH vitamin D less than 20 ng/mL (1,2). The Endocrine Society went on to further define vitamin D insufficiency as a level between 21 and 29 ng/mL (2). 1. IOM ([place] of Medicine). 2010. Dietary reference ?? intakes for calcium and D. [place]: The ?? National [employer]. 2. Shira MF, Yvonne NC, Kassidy OLVERA, et al. ?? Evaluation, treatment, and prevention of vitamin D ?? deficiency: an Endocrine Society clinical practice ?? guideline. JCEM. 2010; 96(7):1911-30. Blood 03/08/2024 8:30 AM CDT 03/08/2024 Narrative [facility] - 03/09/2024 7:10 AM CDT Performed at: ??01 - [facility] [address] [place], [place] ??[id number] Adobe Maker: Singh Chavez PhD, Phone: ??[phone] Aj Starks MD LAB BLOOD O RDERABLES Final Result Performing Organization Address [facility]/ZIP Co de Phone Number [facility] - * (ABNORMAL) Urinalysis reflex to microscopic (03/08/2024 8:30 AM CDT) Specific [place] 1.015 1.005 - 1.030 [facility] - 01 pH, ur 7.0 5.0 - 7.5 [facility] - 01 Color, ur Yellow Yellow [facility] - 01 Appearance, ur Clear Clear [facility] - 01 Leukocyte esterase, ur 3+(A) Negative [facility] - 01 Protein, ur Negative Negative/Tra ce [facility] - 01 Glucose, ur Negative Negative [facility] - 01 Ketones, ur Negative Negative [facility] - 01 Blood, ur Negative Negative [facility] - 01 Bilirubin, ur Negative Negative [facility] - 01 Urobilinogen, quant, ur 0.2 0.2 - 1.0 mg/dL [facility] - 01 Nitrites, ur Negative Negative [facility] - 01 Urinalysis, microscopic exam See below: [facility] - 01 Comment:Microscopic was evaristo cated and was performed. Urine 03/08/2024 8:30 AM CDT 03/08/2024 Narrative [facility] - 03/09/2024 2:08 AM CDT Performed at: ?? [address] ??[id number] Adobe Maker: Singh Chavez PhD, Phone: ??[phone] Aj Starks MD LAB URINE O RDERABLES Final Result Performing Organization Address [facility] Co de Phone Number [facility] * PTH (03/08/2024 8:30 AM CDT) PTH Intact 36 15 - 65 pg/mL [facility] - Blood 03/08/2024 8:30 AM CDT 03/08/2024 Narrative [facility] - 03/09/2024 12:11 PM CDT Performed at: ??[address] ??[id number] Adobe Maker: Singh Chavez PhD, Phone: ??[phone] us Aj Starks MD LAB BLOOD O RDERABLES Final Result Performing Organization Address [facility] Co de Phone Number [facility] - * Protein / creatinine ratio, urine, random (03/08/2024 8:30 AM CDT) Creatinine ur 128.5 Not Estab. mg/dL [facility] - 01 Protein, ur, quant 13.6 Not Estab. mg/dL [facility] - 01 Protein/Creat Ratio 106 0 - 200 mg/g creat [facility] - 01 Urine 03/08/2024 8:30 AM CDT 03/08/2024 Narrative [facility] - 03/09/2024 7:10 AM CDT Performed at: ?? - [facility] [address], [place], [place] ??[id number] Adobe Maker: Singh Chavez PhD, Phone: ??[phone] us Aj Starks MD LAB URINE O RDERABLES Final Result [facility] - 01 * CBC with auto differential (03/08/2024 8:30 AM CDT) WBC 6.2 3.4 - 10.8 x10E3/uL [facility] - 01 RBC 4.53 3.77 - 5.28 x10E6/uL [facility] - 01 Hgb 13.0 11.1 - 15.9 g/dL [facility] - 01 Hct 41.3 34.0 - 46.6 % [facility] - 01 MCV 91 79 - 97 fL [facility] - 01 MCH 28.7 26.6 - 33.0 pg [facility] - 01 MCHC 31.5 31.5 - 35.7 g/dL [facility] - 01 Rdw 13.4 11.7 - 15.4 % [facility] - 01 Platelets 324 150 - 450 x10E3/uL [facility] - 01 Neutrophils pct 52 Not Estab. % [facility] - 01 Lymphs pct 31 Not Estab. % [facility] - 01 Monocytes pct 11 Not Estab. % [facility] - 01 Eosinophils pct 4 Not Estab. % [facility] - 01 Basophil pct 2 Not Estab. % [facility] - 01 Neutrophil abs 3.2 1.4 - 7.0 x10E3/uL [facility] - 01 Lymphs (Absolute) 1.9 0.7 - 3.1 x10E3/uL [facility] - 01 Monocyte abs 0.7 0.1 - 0.9 x10E3/uL [facility] - 01 Eosinophils, abs 0.2 0.0 - 0.4 x10E3/uL [facility] - 01 Basophils, abs 0.1 0.0 - 0.2 x10E3/uL [facility] - 01 Immature Granulocytes 0 Not Estab. % [facility] - 01 Immature Grans (Abs) 0.0 0.0 - 0.1 x10E3/uL [facility] - 01 Blood 03/08/2024 8:30 AM CDT 03/08/2024 Narrative [facility] - 03/09/2024 12:07 AM CDT Performed at: ??01 - [facility] [address] ??[id number] Adobe Maker: Singh Chavez PhD, Phone: ??[phone] us Aj Starks MD LAB BLOOD O RDERABLES Final Result [facility] - 01 * (ABNORMAL) Renal function panel (03/08/2024 8:30 AM CDT) Glucose 97 70 - 99 mg/dL [facility] - 01 BUN 27 8 - 27 mg/dL [facility] - 01 Creatinine, Serum 1.53(H) 0.57 - 1.00 mg/dL [facility] - 01 eGFR 36(L) >59 mL/min/1.7 3 [facility] - 01 BUN/creat ratio 18 12 - 28 [facility] - 01 Sodium 140 134 - 144 mmol/L [facility] - 01 Potassium, sr 4.5 3.5 - 5.2 mmol/L [facility] - 01 Chloride 103 96 - 106 mmol/L [facility] - 01 CO2 24 20 - 29 mmol/L [facility] - 01 Calcium 9.9 8.7 - 10.3 mg/dL [facility] - 01 Phosphorus, sr 3.2 3.0 - 4.3 mg/dL [facility] - 01 Albumin 4.3 3.8 - 4.8 g/dL [facility] - 01 Blood 03/08/2024 8:30 AM CDT 03/08/2024 Narrative [facility] - 03/09/2024 7:10 AM CDT Performed at: ??01 - [facility] [address], [place], [place] ??[id number] Adobe Maker: Singh Chavez PhD, Phone: ??[phone] us Aj Starks MD LAB BLOOD O RDERABLES Final Result [facility] - 01 documented in this encounter Visit Diagnoses Diagnosis Essential hypertension- Primary Unspecified essential hypertension Stage 3a chronic kidney disease (HCC) DERICK (renal osteodystrophy) Renal osteodystrophy Hyperlipidemia, unspecified hyperlipidemia type documented in this encounter Care Teams Associate Professor Of Biblical Studies Relationship Specialty Start Date End Date Bull Taveras MD [address] [address] PCP - General Internal Medicine 08/24/20 Nahomi Boyce, RN Registered Nurse Pulmonary Disease 11/12/22 documented as of this encounter
--- OUTSIDE RECORDS SUMMARY | 2024-07-14 22:32 | XMS_ITS | Encounter Summary ---
Author Organization [facility] Address [address] [place] [address] Phone Care Team Providers Care Truck Farmer Name Role Phone Bull Taveras MD Primary Care Provider [phone] Nahomi Boyce RN Unavailable Unavailabl e Encounter Details Date Type Department Care Team (Late st Contact Info) Description 12/12/2023 Telephone [facility] Orthopaedic Surgery [address] [facility] 1st Floor [address] [place] [address] Evonne Shi RMA Social History Tobacco Use Types Packs/Day Years [...] on file 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 documented in this encounter Plan of Treatment Scheduled Procedures Name Priority Associated Diagnoses Date/Ti me COLONOSCOPY Encounter for screening colonoscopy COLONOSCOPY Encounter for screening colonoscopy documented as of this encounter Visit Diagnoses Not on filedocumented in this encounter Care Teams Truck Farmer Relationship Specialty Start Date End Date Bull Taveras MD [address] [address] PCP - General Internal Medicine 08/24/20 Nahomi Boyce, RN Registered Nurse Pulmonary Disease 11/12/22 documented as of this encounter
--- OUTSIDE RECORDS SUMMARY | 2024-07-14 22:32 | XMS_ITS | Encounter Summary ---
Author Organization [facility] Address [address] [place] [address] Care Team Providers Care Account Development Associate Name Role Phone Bull Taveras MD Primary Care Provider [phone] Nahomi Boyce RN Unavailable Unavailabl e Encounter Details Date Type Department Care Team (Late st Contact Info) Description 07/21/2023 Orders Only [facility] [address] [facility] [address] [place] [facility] [place] [id number] Lisa Cortés, CHIARA [address] [place] [address] Social History Tobacco Use Types Packs/Day Years Used Date Smoking Tobacco: Former Cigarettes Q uit: 12/13/2019 Smokeless Tobacco: Never AUDIT-C Answer Date Recorded Q1: How often do you have a drink containing alc ohol? 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 6 tablet 07/21/2023 10/21/2023 documented in this encounter Plan of Treatment Scheduled Procedures Name Priority Associated Diagnoses Date/Ti id COLONOSCOPY Encounter for screening colonoscopy COLONOSCOPY Encounter for screening colonoscopy documented as of this encounter Visit Diagnoses Not on filedocumented in this encounter Care Teams Account Development Associate Relationship Specialty Start Date End Date Bull Taveras MD [address] [address] PCP - General Internal Medicine 08/24/20 Nahomi Boyce RN Registered Nurse Pulmonary Disease 11/12/22 documented as of this encounter
--- OUTSIDE RECORDS SUMMARY | 2024-07-14 22:32 | XMS_ITS | Encounter Summary ---
Author Organization [facility] Address [address] [place] [address] Phone Care Team Providers Care Control Systems Designer Name Role Phone Bull Taveras MD Primary Care Provider Nahomi Boyce RN Unavailable Unavailabl e Encounter Details Date Type Department Care Team (Late st Contact Info) Description 07/05/2024 Documentation [facility] Pulmonary [address] 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 No concerning nodules. Goitre stable since 2020. E DATA COMMUNICATIONS ENGINEER documented in this encounter Plan of Treatment Scheduled Procedures Name Priority Associated Diagnoses Date/Ti in COLONOSCOPY Encounter for screening colonoscopy COLONOSCOPY Encounter for screening colonoscopy documented as of this encounter Visit Diagnoses Not on filedocumented in this encounter Care Teams Control Systems Designer Relationship Specialty Start Date End Date Bull Taveras MD [address] [address] PCP - General Internal Medicine 08/24/20 Nahomi Boyce RN Registered Nurse Pulmonary Disease 11/12/22 documented as of this encounter
--- OUTSIDE RECORDS SUMMARY | 2024-07-14 22:32 | XMS_ITS | Encounter Summary ---
Author Organization [facility] Address [address] [place] [address] Phone Care Team Providers Care Slat Basket Maker Helper Name Role Phone Bull Taveras MD Primary Care Provider [phone] Nahomi Boyce RN Unavailable Unavailabl e Reason for Referral * (Routine) - Pending Review Specialty Diagnoses / Procedures Referred By Contac t Referred To Contact Diagnoses DEANNE (obstructive sleep apnea) Procedures Miscellaneous DME Sonia Conway MD PhD [address] [place] [address] Phone: tel: fax: Referral ID Status Reason Start Date Expiration Date V isits Requested Visits Authorized [id number] Pending Review 09/25/2023 10/24/2024 1 1 Encounter Details Date Type Department Care Team (Late st Contact Info) Description 09/25/2023 9:30 AM CDT Telemedicine [facility] Neuro Sleep [address] [facility] 6th [address] [place] [id number] Sonia Conway MD PhD [address] [place] [address] DEANNE (obstructive sleep apnea) (Primary Dx) Social History Tobacco Use Types Packs/Day Years [...] on file 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 Gender Identity Not on file Sexual Orientation Straight 03/05/2021 1: 44 PM CDT documented as of this encounter Patient Instructions * Patient Instructions* Iris Clarke MD - 09/25/2023 9:30 AM CDT - We will ask your medical [employer] company to have you come in for a mask fitting appointment, sinceyour current mask has been causing you some irritations - Please continue to use your CPAP machine as much as possible - We will plan to see you back in 1 year, please let us know if you have any questions/concerns in the meantime documented in this encounter Progress Notes * Sonia Conway MD PhD - 09/25/2023 9:30 AM CDT This was a telemedicine visit with Lisa Roman alone which took place via Real-time video connection ([employer], [employer] or similar). During the visit, I (the attending physician) was located in [place] and the patient was located in [place]. I was present for the entire service with the resident and patient/caregiver. I agree with the findings and plan of care as documented in the resident's note. My visit with the patient started at 9:27 and ended at 9:51. In addition to the time spent duringthe session with the patient, I spent 7 minutes on the day of the visit on other activities relatedto the visit. This includes time spent prior to the visit and after the visit in direct care of the patient. This time does not include time spent in any separately reportable services. Total time spend on encounter on the day of the visit by the ATTENDING PHYSICIAN: 31 minutes. The patient/guardian has been informed that the visit may not be secure and acknowledged the information. After being given an opportunity to ask questions about and discuss this type of visit, they verbally consented to proceeding with the telephone/video visit and understand that this service replaces an office visit. Patient Name: LISA ROMAN Medical Record Number (MRN): [id number] Date of (): 1955 Encounter Date: 09/25/2023 [facility] Chief Complaint Lisa Roman is a 68 y.o. female seen today for consultation regarding concern for sleep apnea. Referring provider: Conner Vale MD HPI 68 y.o. patient with COPD and dyspnea, hypertension, CKD III, and paroxsymal afib who presents for DEANNE follow up. She initially presented in 02/2021 with morning headaches, daytime sleepiness with elevated (>10)Sealy Sleepiness Scale, nocturia and poor sleep quality. She has had chronic pain from possible PMR and has been seen by radiology resident. She fetl that her sleep is disrupted from pain. She had beenstarted on prednisone. She thinks she has gained 50 lbs in the last year and a half since starting.PSG 06/21/2021 (wt 202) revealed mild/moderate DEANNE with 4% AHI of 14.4, 3% AHI of 18.2, O2 leonarda 79%(16.2 minutes <89%). CPAP titration during that study revealed that a pressure of 10 cm H2O was optimal with a few TECA. She was ordered AutoPAP 8-12 cm H2O. At her last visit in 09/2022 she had excellent compliance with APAP 8-12 and this was continued without change. Today: She reports that since her last visit she has not had any new medical issues. In regards to PAP, she continue to love it, and reports that it has helped significantly with sleepand excessive daytime sleepiness! She currently uses the Dreamwear with the nasal pillows but she has been experiencing some skin irritations inside of her L nostril, and would like to try another type of mask. Minimal issues with leak. Minimal issues with dry nose, and uses moisturizer to help if she notices that her nose feels dry. She does use the humidifier with distilled water. No issues replacing supplies and does this regularly. ([facility]) Weight is stable. Compliance Data: Compliance download for last 30 days 08/26-09/24/2023 Device Settings- 8-12 cmH2O Days with Device Usage- 97% Median Usage on Days Used- 8 hours 29 min % Usage >=4 hours- 83% Median Pressure- 9.7 95% Pressure- 11.4 Max pressure- 11.6 Median leak- 5 95% leak- 25 Average AHI- 2.0 On most days , bedtime is 8:30PM, rise time is 5:30 (gets up early to help with her grandchildren),and she reads for about 20 minutes then falls asleep in < 5 minutes. She wakes up 2-4 times during the night, but mostly only briefly for repositioning. She rarely gets up to use the restroom. Amy longer takes naps in the afternoon! ESS is 08/06, significantly down from 07/06 prior to treatment. Prior data: PFTs 12/07/2020: FEV1 of 2.25 L (81% of reference), FVC of 1.08 L (49% of reference), and FEV1/FVC of 48%. TLC is 117% of reference, with an RV of 175% of reference. DLCO was 70% of reference. Taken together, these tests are consistent with a severe obstructive ventilatory defect with air trapping. 12/15/2020 BMP with CO2 of 23 Echo 09/17/2019: LVEF >70%, grade II diastolic dysfunction, mild pulm HTN with PASP 39 mmHg Allergies Allergen Reactions Novocain [Procaine] Anaphylaxis Heart races [place] Nut Itching and Swelling Cinnamon Flushing (skin) Current Outpatient Medications Medication Sig Dispense Refill albuterol HFA (PROVENTIL HFA,VENTOLIN HFA,PROAIR HFA) 90 mcg/actuation inhaler Inhale 2 puffs every6 (six) hours as needed for wheezing 1 each 0 atorvastatin (LIPITOR) 10 mg tablet Take 1 tablet by mouth once daily 90 tablet 3 azithromycin (ZITHROMAX) 250 mg tablet Take 2 tabs (500 mg) by mouth today, than 1 tab (250 mg) daily for 4 days. 6 tablet 0 cetirizine (ZyrTEC) 10 mg tablet Take 1 tablet (10 mg total) by mouth daily [employer] [facility] Allergy chlorthalidone (HYGROTON) 25 mg tablet Take 0.5 tablets (12.5 mg total) by mouth daily 45 tablet 3 cholecalciferol (VITAMIN D-3) 25 mcg (1,000 unit) tablet Take 1 tablet (1,000 Units total) by mouthdaily 30 tablet 11 dilTIAZem CD/XR/XT (DILT-XR) 120 mg 24 hr capsule Take 1 capsule (120 mg total) by mouth daily 90 capsule 3 Eliquis 5 mg tablet TAKE 1 TABLET BY MOUTH EVERY 12 HOURS 180 tablet 3 lisinopriL (PRINIVIL,ZESTRIL) 10 mg tablet Take 1 tablet by mouth once daily 90 tablet 0 lysine 500 mg tablet 1 tablet (500 mg total) magnesium oxide 400 mg magnesium capsule Take by mouth potassium gluconate 595 mg (99 mg) tablet 1 tablet (595 mg total) umeclidinium-vilanteroL (Anoro Ellipta) 62.5-25 mcg/actuation blister with device Inhale 1 puff by mouth once daily 60 each 5 No current facility-administered medications for this visit. Patient Active Problem List Diagnosis Essential hypertension Polyarthritis Thyroid nodule Stage 3a chronic kidney disease (HCC) Shortness of breath DEANNE (obstructive sleep apnea) DERICK (renal osteodystrophy) Chronic obstructive pulmonary disease (HCC) Hyperlipidemia Atrial fibrillation (CMS/HCC) (HCC) Past Medical History: Diagnosis Date Arthritis Atrial fibrillation (CMS/HCC) (HCC) Chronic kidney disease Hypertension Obesity Thyroid disease Past Surgical History: Procedure Laterality Date REPAIR KNEE LIGAMENT Family History Problem Relation Age of Onset Diabetes Mother Asthma Mother COPD Mother Atrial fibrillation Mother Hyperlipidemia Mother COPD Father Heart disease Father Hypertension Father Kidney disease Neg Hx Sleep apnea - both brothers and her sister Social History Education: high school graduate, partial college Marital Status: Work: self-employed Tobacco:former smoker, quit around 2019 ETOH: socially Recreational Drugs:none Caffeine: 2 cups of coffee , sometimes will have another cup of coffee in the afternoon 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 There is no height or weight on file to calculate BMI. Physical Exam GENERAL EXAM: General: Well developed, well nourished, in no acute distress. Pulmonary: Breathing comfortably on room air without tachypnea; Integumentary System: Facial skin no irritation or breakouts, no rash. NEUROLOGIC EXAM: Psych/Mental Status: Alert, oriented, normal spontaneous fluent speech with full comprehension. Normal affect Cranial Nerves: Face symmetric. No dysarthria or dysphonia. Note: Exam is limited due to video visit (no telepresenter present) Most recent reported weight: 189 lb Assessment Assessment Diagnosis Plan 1. DEANNE (obstructive sleep apnea) Miscellaneous DME 68 y.o. female with severe COPD and dyspnea, hypertension, CKD III, and p Afib who follows up for DEANNE currently treated with APAP 8-12 cm H2O. She is doing well with this treatment, but has been having some skin irritation inside of her left nostril with her current nasal pillows. She would like tohave a mask fitting session with her DME to try a diff type of mask. She has had symptomatic improvement in snoring, fatigue and difficulty sleeping and expressed commitment to continuing treatment. We discussed how untreated DEANNE can cause unrefreshing sleep and excessive daytime sleepiness, as well as how it contributes over the skilled nursing to cardiovascular risk, recalcitrant hypertension, and stroke risk. Plan Mask fitting session with DME (order placed) Continue APAP 8-12 cm H2O using whenever sleeping. Regular supplies replacement Discussed avoidance of driving while sleepy Follow up in 1 year. Return in about 1 year (around 09/24/2024) for F2F or video ok, routine sleep f/u. Orders Placed This Encounter Procedures Miscellaneous DME Please provide All Related Supplies (Life time) including: filters, hose, mask with headgear, mask liners/cushions, humidity chamber. Mask fitting to look at other nasal options. Thanks, R Order Specific Question: Name/type: Answer: CPAP supplies and mask fitting Order Specific Question: The [id number] evaluation was performed on: Answer: 09/25/2023 Order Specific Question: DME services provided by: Answer: External Agency Order Specific Question: Name of external DME agency: Answer: Thank you for allowing me to participate in the care of your patient. If you have any questions, feel free to contact me. Sincerely, Iris Clarke MD Neurology PGY4 Sonia Conway M.D., Ph.D., FAAN, FAASM Professor of Neurology Diplomate, [place] [employer] and Neu[employer] with added Qualifications in Sleep Medicine Portions of this note were generated using voice recognition technology and may be subject to bumper and painter error. documented in this encounter Plan of Treatment Scheduled Procedures Name Priority Associated Diagnoses Date/Ti me COLONOSCOPY Encounter for screening colonoscopy COLONOSCOPY Encounter for screening colonoscopy documented as of this encounter Visit Diagnoses Diagnosis DEANNE (obstructive sleep apnea)- Primary Obstructive sleep apnea (adult) (pediatric) documented in this encounter Orders General Supply Count Last Ordered Date First Or dered Date MISCELLANEOUS DME 1 09/25/2023 documented in this encounter Care Teams Slat Basket Maker Helper Relationship Specialty Start Date End Date Bull Taveras MD [address] [address] PCP - General Internal Medicine 08/24/20 Nahomi Boyce RN Registered Nurse Pulmonary Disease 11/12/22 documented as of this encounter
--- OUTSIDE RECORDS SUMMARY | 2024-07-14 22:32 | XMS_ITS | Encounter Summary ---
Author Organization [facility] Address [address] [place] [address] Phone Care Team Providers Care Public Information Relations Manager Name Role Phone Bull Taveras MD Primary Care Provider [phone] Nahomi Boyce RN Unavailable Unavailabl e Encounter Details Date Type Department Care Team (Late st Contact Info) Description 12/12/2023 Telephone [facility] Orthopaedic Surgery [address] [facility] 1st [address] [place] [address] Evonne Shi RMA Social History Tobacco Use [...] on file 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 She will start icing 2-3 times a day and will call Friday with an update on her symptoms. She cannot take Tylenol or Ibuprofen due to stomach and renal problems. * Telephone Encounter - Unique Hurst NP - 12/13/2023 6:14 PM CDT The sciatic nerve may be contributing to the increase of knee pain. Are you taking any medication and routinely icing? * Telephone Encounter - Evonne Shi RMA - 12/12/2023 9:58 AM CDT Pain Diary right knee- immediately after 50% 6 hrs-75% 24 hrs-100% 4 days-75% 1 weeks-75% 10 days-100% 2 weeks-100% left knee- immediately after-25% 6 hrs-25% 24 hrs-25% 4 hrs-50% 1 week-50% 10 days-75% 2 weeks-25% not sure whats up with my left knee ---I do have some sciatic nerve bull going on though. I don't know----- dumb old knees documented in this encounter Plan of Treatment Scheduled Procedures Name Priority Associated Diagnoses Date/Ti me COLONOSCOPY Encounter for screening colonoscopy COLONOSCOPY Encounter for screening colonoscopy documented as of this encounter Visit Diagnoses Not on filedocumented in this encounter Care Teams Public Information Relations Manager Relationship Specialty Start Date End Date Bull Taveras MD [address] [facility] [address] [place] [address] PCP - General Internal Medicine 08/24/20 Nahomi Boyce RN Registered Nurse Pulmonary Disease 11/12/22 documented as of this encounter
--- OUTSIDE RECORDS SUMMARY | 2024-07-14 22:32 | XMS_ITS | Encounter Summary ---
Author Organization [facility] Address [address] [place] [address] Phone Care Team Providers Care Web Application Tester Name Role Phone Bull Taveras MD Primary Care Provider [phone] Nahomi Boyce RN Unavailable Unavailabl e Reason for Referral * Consultation (Routine) - Pending Review Specialty Diagnoses / Procedures Referred By Grecia paulino Referred To Contact Physical Therapy Diagnoses Pain in both knees, unspecified chronicity Primary osteoarthritis of both knees Joyce Moreno PA [address] [address] Phone: tel: fax: Joyce Moreno PA [address] [facility] [address] [place] [address] Phone: tel: fax: Referral ID Status Reason Start Date Expiration Date Visits Requested Visits Authorized [id number] Pending Review Evaluate and Treat 10/28/2023 11/26/2024 12 12 Question Answer PTRFR PT Evaluate and Treat Therapy options discussed with patient? Yes Location provided for therapy services is: Patient requested/Patient preferred Please select the performing region: External Order [171] To loc/pos [facility] Jasper/Bakari Duckworth [[id number]] To provider: JOYCE MORENO [[id number]] # of visits: 12 Reason for Visit * Reason Comments Pain Pain * Consultation (Routine) - Closed Specialty Diagnoses / Procedures Referred By Contac t Referred To Contact Orthopedic Surgery Diagnoses Pain in both knees, unspecified chronicity Pooja Chapman, ZIA [address] [facility] [address] [place] [address] Phone: tel: fax: Robby Jay MD [address] [place] [address] Phone: tel: fax: Referral ID Status Reason Start Date Expiration Date V isits Requested Visits Authorized [id number] Closed Specialty Services Required 10/06/2023 11/04/2024 1 1 Encounter Details Date Type Department Care Team (Late st Contact Info) Description 10/28/2023 10:00 AM CDT Office Visit [facility] [address] [facility] Medical Office Building [address] [place] [phone] Joyce Moreno PA [address] [address] Primary osteoarthritis of both knees (Primary Dx); Pain in both knees, unspecified chronicity Social History Tobacco Use Types Packs/Day Years [...] on file 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 You could get Voltaren gel/diclofenac gel [id number] and use it as needed. I sent a physical therapy order over to [facility] in [place]. They should reach out to you to schedule, if not you can reach out to them. We will get you a follow up at the [facility] in 6-8 weeks for re-evaluation and possible injection. documented in this encounter Progress Notes * Joyce Moreno PA - 10/28/2023 10:00 AM CDT Images from the original note were not included. 10/28/2023 Chief Complaint (CC): Chief Complaint Patient presents with Left Knee - Pain Right Knee - Pain HPI: Lisa Scott is a 68 y.o. female who presents to clinic today with complaints of bilateral knee pain. She has had both knees ???cleaned up?? in the past, most recently with a right knee. She says that she has chronic left knee pain but the right knee has only been bothering her for about a month. For the left knee she localizes pain to the anterior knee. Right knee she says it is more lateral pain. She denies any injury. She says that she is always careful. She lives in an old house that hasa two story. She has a history of Middleton's cyst as well. Lisa Scott does not tolerate NSAIDs well. She said she has some kidney disease and then gets GIupset. She wants to go on a trip to [place] with her daughters and needs better mobility. Meds: Current Outpatient Medications: albuterol HFA (PROVENTIL HFA,VENTOLIN HFA,PROAIR HFA) 90 mcg/actuation inhaler, Inhale 2 puffs every 6 (six) hours as needed for wheezing, Disp: 1 each, Rfl: 0 atorvastatin (LIPITOR) 10 mg tablet, Take 1 tablet by mouth once daily, Disp: 90 tablet, Rfl: 3 cetirizine (ZyrTEC) 10 mg tablet, Take 1 tablet (10 mg total) by mouth daily [employer] Allergy,Disp: , Rfl: chlorthalidone (HYGROTON) 25 mg tablet, Take 0.5 tablets (12.5 mg total) by mouth daily, Disp: 45 tablet, Rfl: 3 cholecalciferol (VITAMIN D-3) 25 mcg (1,000 unit) tablet, Take 1 tablet (1,000 Units total) by mouth daily, Disp: 30 tablet, Rfl: 11 dilTIAZem CD/XR/XT (DILT-XR) 120 mg 24 hr capsule, Take 1 capsule (120 mg total) by mouth daily, Disp: 90 capsule, Rfl: 3 Eliquis 5 mg tablet, TAKE 1 TABLET BY MOUTH EVERY 12 HOURS, Disp: 180 tablet, Rfl: 3 lisinopriL (PRINIVIL,ZESTRIL) 10 mg tablet, Take 1 tablet by mouth once daily, Disp: 90 tablet, Rfl: 0 magnesium oxide 400 mg magnesium capsule, Take by mouth, Disp: , Rfl: potassium gluconate 595 mg (99 mg) tablet, 1 tablet (595 mg total), Disp: , Rfl: umeclidinium-vilanteroL (Anoro Ellipta) 62.5-25 mcg/actuation blister with device, Inhale 1 puff bymouth once daily, Disp: 60 each, Rfl: 5 Allergies: Allergies Allergen Reactions Novocain [Procaine] Anaphylaxis Heart races [place] Nut Itching and Swelling Cinnamon Flushing (skin) Past Medical History (PMH): Past Medical History: Diagnosis Date Arthritis Atrial fibrillation (CMS/HCC) (HCC) Chronic kidney disease Hypertension Obesity Thyroid disease Family Hx/Social Hx: Reviewed at today's visit. Physical Exam: General: Patient is a well-appearing female in no acute distress, alert and oriented Respiratory: breathing regular rate, unlabored. Skin: warm, well-perfused Cardiovascular: 2+ pulses, capillary refill less than 2 seconds. Right lower extremity: She has a large healed surgical scar to the lateral aspect of her knee. She has some tenderness to palpation of the lateral joint line and the medial joint line. No erythema, ecchymosis or effusion. Range of motion is 0-120 degrees without pain. She does have some crepitus. No pain or instability with varus or valgus stress. Negative Apley's. Neurovascular sensation is intact, capillary refill is less than 2 seconds. Left lower extremity: She has some tenderness to palpation along the medial joint line, and the anterior knee. She is crepitus with range of motion, 0-120 degrees. No pain with range of motion. No erythema, ecchymosis or effusion. No pain or instability with varus or valgus stress. Negative Apley's. Xrays/Imaging: X-rays reviewed and assessed by myself and show degenerative change of the bilateral knees, most significant at the lateral aspect of the right knee and the medial joint line of the left knee. Assessment: 1. Primary osteoarthritis of both knees 2. Pain in both knees, unspecified chronicity Plan: We talked about treatment options to include topical NSAIDs, physical therapy or steroid injections. We decided to start with [id number] topical NSAIDs, diclofenac gel, as needed. I also got her a physical therapy order for [facility]. She has not interested in injections today as her pain is not very bad. She lives in [place], so we will get her a follow up in 6-8 weeks at the [facility] location, potentially for injections. She is aware that she may eventually need joint replacement, but would like to do conservative treatment until that no longer works. Follow-up: 6-8 weeks it [facility] possibly for any injections HENRY Marrufo [facility] [place], Department of Orthopedics Working in collaboration with Dr. Jose Francisco Browning Dictation completed using MModal. Variances may occur. documented in this encounter Plan of Treatment Scheduled Procedures Name Priority Associated Diagnoses Date/Ti hi COLONOSCOPY Encounter for screening colonoscopy COLONOSCOPY Encounter for screening colonoscopy Scheduled Referrals Name Type Priority Associated Diagnoses Orde r Schedule Ambulatory referral order to Physical Therapy - Outpatient Referral Routine Pain in both knees, unspecified chronicity Primary osteoarthritis of both knees Expected: 11/11/2023 (Approximate), Expires: 10/27/2024 documented as of this encounter Results * XR Knee Bilateral 3 Views (10/28/2023 10:39 AM CDT) Anatomical Region Laterality Modality Lower Extremities, Knee Bilateral Digital Radiography 10/28/2023 3:34 PM CDT Impressions 10/28/2023 3:34 PM CDT No fracture or bone destruction in either knee. 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 ??Tricompartment osteoarthritis in the right knee greatest and severe in the lateral compartment. ??Tricompartment osteoarthritis in the left knee greatest and mild to moderate in the medial compartment. ??Small bilateral joint effusions. ??Few small intra-articular bodies on the left. Electronically signed by: Stanislav Coleman M.D. Narrative 10/28/2023 3:34 PM CDT EXAMINATION: XR KNEE BILATERAL 3 VIEWS DATE: ??10/28/2023 10:30 AM. HISTORY: ??Bilateral knee pain COMPARISON: 10/03/2023 Procedure Note Stanislav Coleman MD - 10/28/2023 EXAMINATION: XR KNEE BILATERAL 3 VIEWS DATE: 10/28/2023 10:30 AM. HISTORY: Bilateral knee pain COMPARISON: 10/03/2023 IMPRESSION: No fracture or bone destruction in either knee. 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 Tricompartment osteoarthritis in the right knee greatest and severe in the lateral compartment. Tricompartment osteoarthritis in the left knee greatest and mild to moderate in the medial compartment. Small bilateral joint effusions. Few small intra-articular bodies on the left. Electronically signed by: Stanislav Coleman M.D. Joyce FIGUEROA IMG XR PROCEDURES Final R esult documented in this encounter Visit Diagnoses Diagnosis Primary osteoarthritis of both knees- Primary Pain in both knees, unspecified chronicity Pain in both knees, unspecified chronicity documented in this encounter Orders Outpatient Referral Count Last Ordered Date Fir st Ordered Date AMB REFERRAL TO ORTHOPEDIC RECON HIP/KNEE 1 10/28/2023 documented in this encounter Care Teams Web Application Tester Relationship Specialty Start Date End Date Bull Taveras MD [address] [place] [address] PCP - General Internal Medicine 08/24/20 Nahomi Boyce RN Registered Nurse Pulmonary Disease 11/12/22 documented as of this encounter
--- OUTSIDE RECORDS SUMMARY | 2024-07-14 22:32 | XMS_ITS | Encounter Summary ---
Author Organization 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 Gender Identity Not on file Sexual Orientation Straight 03/05/2021 1: 44 PM CDT Occupation Industry Job Start Date Job End Date 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 Not on file Not on file Not on file documented as of this encounter Plan of Treatment Scheduled Procedures Name Priority Associated Diagnoses Date/Ti me COLONOSCOPY Encounter for screening colonoscopy COLONOSCOPY Encounter for screening colonoscopy documented as of this encounter Procedures Procedure Name Priority Date/Time Associated Diagnosis Comments RESPIRATORY PATHOGEN PANEL Routine 05/14/2024 11:50 AM CDT SOB (shortness of breath) Acute cough documented in this encounter Results * (ABNORMAL) Respiratory pathogen panel Nasopharyngeal (05/14/2024 11:50 AM CDT) Influenza A RNA Not Detected Not Detected [facility] Comment:Testing performed by : [facility], [address] [place] [address]., [address] Influenza B RNA Not Detected Not Detected [facility] ([place]) Comment:Testing performed by : [facility], [address] [place] [address], [address] RSV RNA Not Detected Not Detected [facility] ([place]) Comment:Testing performed by : [facility], [address] [place] [address]., [address] COVID-19 RNA Not Detected Not Detected [facility] ([place]) Comment:Testing performed by : [facility], [address] [place] [address], [address] Coronavirus 229E RNA Not Detected Not Detected [facility] ([place]) Comment:Testing performed by : [facility], [address] [place] [address], [address] Coronavirus HKU1 RNA Not Detected Not Detected [facility] ([place]) Comment:Testing performed by : [facility], [address] [place] [address]., [address] Coronavirus NL63 RNA Not Detected Not Detected [facility] ([place]) Comment:Testing performed by : [facility], [address] [place] [address], [address] Coronavirus OC43 RNA Not Detected Not Detected [facility] ([place]) Comment:Testing performed by : [facility], [address] [place] [address]., [address] Adenovirus DNA Not Detected Not Detected [facility] ([place]) Comment:Testing performed by : [address], [address] Metapneumovirus RNA Not Detected Not Detected [facility] ([place]) Comment:Testing performed by : [address], [address] Rhinovirus/Enterov irus RNA Detected(A) Not Detected [facility] ([place]) Comment:Testing performed by : [address] [address] Parainfluenza 1 RNA Not Detected Not Detected [facility] ([place]) Comment:Testing performed by : [facility], [address] [place] [address]., [address] Parainfluenza 2 RNA Not Detected Not Detected [facility] ([place]) Comment:Testing performed by : [facility], [address] [place] [address]., [address] Parainfluenza 3 RNA Not Detected Not Detected [facility] ([place]) Comment:Testing performed by : [facility], [address] [place] [address]., [address] Parainfluenza 4 RNA Not Detected Not Detected [facility] ([place]) Comment:Testing performed by : [facility], [address] [place] [address]., [address] B. pertussis DNA Not Detected Not Detected [facility] ([place]) Comment:Testing performed by : [facility], [address] [place] [address], [address] B. parapertussis DNA Not Detected Not Detected [facility] ([place]) Comment:Testing performed by : [facility], [address] [place] [address]., [address] C. pneumoniae DNA Not Detected Not Detected [facility] ([place]) Comment:Testing performed by : [facility], [address] [place] [address], [address] M. pneumoniae DNA Not Detected Not Detected [facility] ([place]) Comment: Interpretive Data The [employer] FilmArray Respiratory Panel (RP2.1) assay is a [...] assay has FDA clearance for testing of VICE PRESIDENT OF PRODUCT MARKETING swabs. ??The performance characteristics of this assay have been determined by [facility]. Current interpretive data was last revised on 2021. Testing performed by: [facility], [address] [place] [address]., [address] Nasopharyngeal 05/14/2024 11 :50 AM CDT 05/14/2024 2:40 PM CDT Narrative [facility] ([place]) - 05/14/2024 3:44 PM CDT Is the Patient experiencing symptoms consistent with COVID?->Yes Surveillance testing for transplant patient?->No us Conner Vale MD LAB MICROBIOLOGY - GENERAL ORD ERABLES Final Result [facility] ([place]) 1 [facility] Department [place] [address] documented in this encounter Visit Diagnoses Diagnosis SOB (shortness of breath) Shortness of breath Acute cough documented in this encounter Additional Health Concerns Infection Onset Date Last Indicated Resolved Time COVID: Suspected 05/14/2024 05/14/2024 05/14/2024 3:46 PM CDT documented as of this encounter Care Teams Donor Floor Technician Relationship Specialty Start Date End Date Bull Taveras MD [address] [address] PCP - General Internal Medicine 08/24/20 Nahomi Boyce RN Registered Nurse Pulmonary Disease 11/12/22 documented as of this encounter
--- OUTSIDE RECORDS SUMMARY | 2024-07-14 22:32 | XMS_ITS | Encounter Summary ---
Author Organization [facility] Address [address] [place] [address] Care Team Providers Care Folder Seamer Automatic Name Role Phone Bull Taveras MD Primary Care Provider [phone] Nahomi Boyce RN Unavailable Unavailabl e Encounter Details Date Type Department Care Team (Late st Contact Info) Description 02/02/2024 Orders Only [facility] [address] [facility] [address] [facility] [place] [address] Pooja Chapman, ZIA [address] [facility] [address] [place], [place] [id number] Social History Tobacco Use Types Packs/Day Years [...] on file 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 Gender Identity Not on file Sexual Orientation Straight 03/05/2021 1: 44 PM CDT documented as of this encounter Ordered Prescriptions Prescription Sig Dispense Quantity Refills Last Filled Start Date End Date molnupiravir 200 mg capsule (EUA) Take 4 capsules (800 mg total) by mouth every 12 (twelve) hours for 5 days 40 capsule 02/02/2024 4 documented in this encounter Plan of Treatment Scheduled Procedures Name Priority Associated Diagnoses Date/Ti la COLONOSCOPY Encounter for screening colonoscopy COLONOSCOPY Encounter for screening colonoscopy documented as of this encounter Visit Diagnoses Not on filedocumented in this encounter Care Teams Folder Seamer Automatic Relationship Specialty Start Date End Date Bull Taveras MD [address] [facility] [address] [place] [address] PCP - General Internal Medicine 08/24/20 Nahomi Boyce, RN Registered Nurse Pulmonary Disease 11/12/22 documented as of this encounter
--- OUTSIDE RECORDS SUMMARY | 2024-07-14 22:32 | XMS_ITS | Encounter Summary ---
Author Organization [facility] Address [address] [place] [address] Phone Care Team Providers Care Screw Machine Operator Swiss Type Name Role Phone Bull Taveras MD Primary Care Provider [phone] Nahomi Boyce RN Unavailable Unavailabl e Encounter Details Date Type Department Care Team (Late st Contact Info) Description 05/14/2024 Orders Only [facility] Pulmonary [address] [facility] [address]th [place] [address] [place] [address] Conner Vale MD [address] [place] [address] SOB (shortness of breath) (Primary Dx); Acute cough Social History Tobacco Use Types [...] on file 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 Gender Identity Not on file Sexual Orientation Straight 03/05/2021 1: 44 PM CDT Occupation Industry Job Start Date Job End Date 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 Not on file Not on file Not on file documented as of this encounter Plan of Treatment Scheduled Procedures Name Priority Associated Diagnoses Date/Ti me COLONOSCOPY Encounter for screening colonoscopy COLONOSCOPY Encounter for screening colonoscopy documented as of this encounter Results * X-ray chest 2 views (05/14/2024 12:02 PM CDT) Anatomical Region Laterality Modality Body, Chest N/A Computed Radiogr aphy 05/17/2024 4:19 AM REGIONAL ECONOMIC LIAISON Narrative 05/17/2024 4:24 AM REGIONAL ECONOMIC LIAISON EXAM DESCRIPTION: ?? XR CHEST PA LATERAL [...] AM T: ??05/17/2024 4:24 AM Report ID: [id number] Reading Location: ??[id number] Procedure Note Jacqui Perry MD - 05/17/2024 [...] Jacqui Perry M.D. SN: SN Report ID: [id number] Reading Location: [place] [address] Conner Vale MD IMG XR PROCEDURES Final Result * (ABNORMAL) Respiratory pathogen panel Nasopharyngeal (05/14/2024 11:50 AM CDT) Influenza A RNA Not Detected Not Detected CH Comment:Testing performed by : [address], [address] Influenza B RNA Not Detected Not Detected [facility] ([place]) Comment:Testing performed by : [address], [address] RSV RNA Not Detected Not Detected [facility] ([place]) Comment:Testing performed by : [address] [address] COVID-19 RNA Not Detected Not Detected [facility] ([place]) Comment:Testing performed by : [address] [address] Coronavirus 229E RNA Not Detected Not Detected [facility] ([place]) Comment:Testing performed by : [address] [address] Coronavirus HKU1 RNA Not Detected Not Detected [facility] ([place]) Comment:Testing performed by : [address] [address] Coronavirus NL63 RNA Not Detected Not Detected [facility] ([place]) Comment:Testing performed by : [address] [address] Coronavirus OC43 RNA Not Detected Not Detected [facility] ([place]) Comment:Testing performed by : [address], [address] Adenovirus DNA Not Detected Not Detected [facility] ([place]) Comment:Testing performed by : [facility], [address] [place] [address], [address] Metapneumovirus RNA Not Detected Not Detected [facility] ([place]) Comment:Testing performed by : [facility], [address] [place] [address]., [address] Rhinovirus/Enterov irus RNA Detected(A) Not Detected [facility] ([place]) Comment:Testing performed by : [facility], [address] [place] [address], [address] Parainfluenza 1 RNA Not Detected Not Detected [facility] ([place]) Comment:Testing performed by : [facility], [address] [place] [address], [address] Parainfluenza 2 RNA Not Detected Not Detected [facility] ([place]) Comment:Testing performed by : [facility], [address] [place] [address], [address] Parainfluenza 3 RNA Not Detected Not Detected [facility] ([place]) Comment:Testing performed by : [facility], [address] [place] [address], [address] Parainfluenza 4 RNA Not Detected Not Detected [facility] ([place]) Comment:Testing performed by : [facility], [address] [place] [address], [address] B. pertussis DNA Not Detected Not Detected [facility] ([place]) Comment:Testing performed by : [address], [address] B. parapertussis DNA Not Detected Not Detected [facility] ([place]) Comment:Testing performed by : [address], [address] C. pneumoniae DNA Not Detected Not Detected [facility] ([place]) Comment:Testing performed by : [facility], [address] [place] [address], [address] M. pneumoniae DNA Not Detected Not Detected [facility] ([place]) Comment: Interpretive Data The [employer] FilmArray Respiratory Panel (RP2.1) assay is a [...] assay has FDA clearance for testing of CORPORATE COMPLIANCE OFFICER swabs. ??The performance characteristics of this assay have been determined by [facility]. Current interpretive data was last revised on 2021. Testing performed by: [facility], [address] [place] [address], [place]., [address] Nasopharyngeal 05/14/2024 11 :50 AM CDT 05/14/2024 2:40 PM CDT [facility] ([place]) - 05/14/2024 3:44 PM CDT Is the Patient experiencing symptoms consistent with COVID?->Yes Surveillance testing for transplant patient?->No us Conner Vale MD LAB MICROBIOLOGY - GENERAL ORD ERABLES Final Result [facility] ([place]) 1 [facility] Department [place] [address] documented in this encounter Visit Diagnoses Diagnosis SOB (shortness of breath)- Primary Shortness of breath Acute cough SOB (shortness of breath) Shortness of breath Acute cough SOB (shortness of breath) Shortness of breath Acute cough documented in this encounter Additional Health Concerns Infection Onset Date Last Indicated Resolved Time COVID: Suspected 05/14/2024 05/14/2024 05/14/2024 3:46 PM CDT documented as of this encounter Care Teams Screw Machine Operator Swiss Type Relationship Specialty Start Date End Date Bull Taveras MD [address] [address] PCP - General Internal Medicine 08/24/20 Nahomi Boyce RN Registered Nurse Pulmonary Disease 11/12/22 documented as of this encounter
--- OUTSIDE RECORDS SUMMARY | 2024-07-14 22:32 | XMS_ITS | Encounter Summary ---
Author Organization [facility] Address [address] [place] [address] Phone Care Team Providers Care Immunologist Name Role Phone Bull Taveras MD Primary Care Provider [phone] Nahomi Boyce RN Unavailable Unavailabl e Reason for Referral * Cardiology (Routine) - Closed Specialty Diagnoses / Procedures Referred By Grecia t Referred To Contact Diagnoses Paroxysmal atrial fibrillation (CMS/HCC) (HCC) Fatigue, unspecified type Procedures Transthoracic Echo (TTE) Complete W Doppler/CF Mango Us NP Phone: tel: fax: [facility] Referral ID Status Reason Start Date Expiration Date Visits Re quested Visits Authorized [id number] Closed 01/26/2024 02/24/2025 1 1 Reason for Visit * Reason Comments Follow-up 1 yr Encounter Details Date Type Department Care Team (Late st Contact Info) Description 01/26/2024 9:00 AM CDT Office Visit 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 Gender Identity Not on file Sexual Orientation Straight 03/05/2021 1: 44 PM CDT documented as of this encounter Last Filed Vital Signs Vital Sign Reading Time Taken Comments Blood Pressure 128/62 01/26/2024 8:59 AM CDT Pulse 68 01/26/2024 8:59 AM CDT Temperature - - Respiratory Rate - - Oxygen Saturation 98% 01/26/2024 8:59 AM CDT Inhaled Oxygen Concentration - - Weight 90.3 kg (199 lb) 01/26/2024 8:59 AM CDT Height 163.8 cm (5' 4.5 ) 01/26/2024 8:59 AM CDT Body Mass Index 33.63 01/26/2024 8:59 AM CDT documented in this encounter Progress Notes * Mango Us NP - 01/26/2024 9:00 AM CDT Cardiology Return Office Visit Primary care Physician Bull Taveras MD [address] [facility] [address] [facility] [address] Patient Name: Lisa Scott Date of : 1955 Date of Visit: 01/26/2024 PRINCIPAL AND SECONDARY DIAGNOSES: Paroxysmal atrial fibrillation Hypertension Hyperlipidemia Prediabetes DEANNE on CPAP COPD CKD stage 3 GERD Lisa Scott is a 68 y.o. female who presents today at the [facility] in [place] for follow up on her atrial fibrillation. Her technical coordinator is Dr. Mcconnell. Since her last visit she generally has been doing well from cardiovascular standpoint. She has not felt any atrial fibrillation and has not had any hospitalizations for heart related concerns. She wears an Apple watch which reports < 2% AFib burden. Her only complaint today is increased fatigue in the last 1-2 months, particularly in the afternoons. This feels reminiscent of prior to CPAP use but has been compliant with her CPAP the last 2 years. She has chronic diarrhea which is ongoing butunchanged. She tries to stay hydrated but admits this is a challenge. She has had no chest pain, shortness of breath, lower extremity edema, palpitations, lightheadedness, dizziness, or stroke/TIA symptoms. Her atorvastatin was recently held due to leg cramps which resolved shortly after stopping the medication. CURRENT MEDICATIONS: Current Outpatient Medications: albuterol HFA (PROVENTIL HFA,VENTOLIN HFA,PROAIR HFA) 90 mcg/actuation inhaler chlorthalidone (HYGROTON) 25 mg tablet cholecalciferol (VITAMIN D-3) 25 mcg (1,000 unit) tablet dilTIAZem CD 120 mg 24 hr capsule Eliquis 5 mg tablet lisinopriL (PRINIVIL,ZESTRIL) 10 mg tablet magnesium oxide 400 mg magnesium capsule umeclidinium-vilanteroL (Anoro Ellipta) 62.5-25 mcg/actuation blister with device cetirizine (ZyrTEC) 10 mg tablet PHYSICAL EXAMINATION: Vitals: 01/26/24 0859 BP: 128/62 BP Location: Left arm Pulse: 68 SpO2: 98% Weight: 90.3 kg (199 lb) Height: 163.8 cm (5' 4.5 ) GENERAL: Alert and oriented, well-nourished, in no acute distress. HEENT: Mucous membranes are moist. Sclerae white. No thyromegaly or lymphadenopathy. LUNGS: Normal effort and respiratory rate. Lungs clear to auscultation bilaterally. HEART: Normal rate, regular rhythm. No murmurs, rubs, or gallops. ABDOMEN: Soft, non-tender, and non-distended. No hepatosplenomegaly. MUSCULOSKELETAL: 5+ strength in upper and lower extremities, bilaterally symmetric. NEUROLOGIC/PSYCH: Alert and oriented x4. Calm and appropriate affect. Grossly normal bilateral motor function and sensation. VASCULAR: Extremities warm and well-perfused. All pulses intact. No edema. No carotid bruit. No JVD. SKIN: No cyanosis, pallor, clubbing, or rashes. LABORATORY/DIAGNOSTICS: Lipids 10/2023: TC 185, HDL 76, LDL 86, Trig 116 CMP 11/14/2023: Cr 1.57, K 4.5, LFTs nl EKG today personally reviewed: Sinus rhythm rate 60, normal EKG IMPRESSION AND PLAN: 1. Fatigue Nonspecific, denies any other cardiac symptoms. Suspect noncardiac. Sinus on EKG today and <2% AF burden on Apple Watch. CMP in November showed Cr higher than baseline at 1.57, repeat BMP today. Will include CBC and TSH. Check TTE. If TTE normal suggest follow up with PCP. 2. Paroxysmal atrial fibrillation Stable with <2% burden on Apple Watch. Continue diltiazem and Eliquis 5mg. 3. Hypertension BP well controlled. November CMP w/ Cr 1.57 slightly above baseline range, repeating BMP today. 4. Hyperlipidemia Leg cramps resolved with recent discontinuation of atorvastatin. For primary prevention recommend goal LDL <100. She has lipids ibrahiman regularly with Dr. Taveras. We will plan to see her back in 1 year, however we would be happy to see her sooner if needed. Mango Us, BROOKE-NEO 01/26/2024 CC: Bull Taveras MD [address] [address] documented in this encounter Plan of Treatment Scheduled Orders Name Type Priority Associated Diagnoses Orde r Schedule Basic metabolic panel Lab Routine Paroxysmal atrial fibrillation Fatigue, unspecified type Expected: 01/29/2024, Expires: 01/25/2025 Thyroid Function [place] Routine Paroxysmal atrial fibrillation Fatigue, unspecified type Expected: 01/26/2024, Expires: 01/25/2025 CBC with auto differential Lab Routine Paroxysmal atrial fibrillation Fatigue, unspecified type Expected: 01/29/2024, Expires: 01/25/2025 Scheduled Procedures Name Priority Associated Diagnoses Date/Ti me COLONOSCOPY Encounter for screening colonoscopy COLONOSCOPY Encounter for screening colonoscopy documented as of this encounter Procedures Procedure Name Priority Date/Time Associated Diagnosis Comments ECG 12-LEAD Routine 01/26/2024 9:20 AM CDT Paroxysmal atrial fibrillation Hypertension Hyperlipidemia documented in this encounter Results * TRANSTHORACIC ECHO (TTE) COMPLETE W DOPPLER/CF WO CONTRAST (02/23/2024 12:58 PM CDT) LV EF 56 % CARDIOREPORT Anatomical Region Laterality Modality Ultrasound 02/23/2024 11:3 0 AM CDT Narrative 02/23/2024 1:08 PM CDT Patient name: Lisa Scott Date of test: 02/23/2024 Type of test: TTE w/Doppler Hospital #: 0 Date of : 1955 (F) Toddler Caregiver: HILLARY Jordan Referring Physician: MANGO US NP Contrast Agent: Contrast Administered by: Supervised/Interpreted by: Serg Reynoso MD Diagnosis: Location: [facility] Reason for test: AFIB; Fatigue MV Structure: Normal, ?MV Motion: Normal, ?? Mitral Annulus: Normal AV Structure: tricuspid and is Normal, ?? AV Motion: Normal Aotic root: Normal, ?TM: Normal, ?? PV: Normal Valvular Vegetations: none seen, ?Mass/Thrombi: none seen RA: Normal Measurements: ?M-Mode ?Normal ? Aotic Root: ? <3.8 ? LA: ? <3.8 ? RV: ? <2.8 ? LV(ED): ? <5.7 ? LV(ES): ? Variable ?2D Linear Normal ? Aotic Root: 3.4 cm ?<3.6 ? Ao Indexed: 1.7 cm/M2 <2.0 ? LA: ? <3.8 ? RV: ? 4.0 cm ?<4.2 ? LV(ED): ? 4.8 cm ?<5.3 ? LV(ES): ? 2.6 cm ?<3.5 ?2D Vol. ?? Normal ?Indexed ?? Indexed Normal RA: ? 43.0 ml ? 22.0 ml/M2 ?9-33 ? LA: ? 61.0 ml ? 31.3 ml/M2 ?16-34 ? RV: ? <11.6 ? LV(ED): ? 96.0 ml ?? 46-106 ?49.2 ml/M2 ?<62 ? LV(ES): ? 42.0 ml ?? 14-42 ? 21.5 ml/M2 ?<25 ?3D Vol. ? Indexed Normal LV(ED): ? 55.3 mL/m2 ?? <62 ? LV(ES): ? 24.1 mL/m2 ?? <24 ? LV EF: 56 % ?? (Normal: >=54%) ?? LV Septum: 1.1 cm ?(Normal: <0.9 cm) Wall Motion Scoring (1=Normal 2=Hypo 3=Akinetic 4=Dyskin./Aneurysm 0=Not visualized) Parasternal Long Dexter:MAS=1 BAS=1 MIL=1 FRANCO=1 Parasternal Short Dexter:MAS=1 MIS=1 VT=1 MIL=1 MAL=1 MA=1 Apical 4 Chambers:=1 MIS=1 BIS=1 BAL=1 MAL=1 AL=1 AC=1 Apical 2 Chambers:AI=1 VT=1 BI=1 BA=1 MA=1 AA=1 AC=1 LV Global Longitudinal Strain: -21.7% ??(Normal <-17%) RV Global Longitudinal Strain: LV Function: Normal LV Ejection Fraction, ??(EF=56%) RV Function: Normal Septal Motion: Normal Pericardial Effusion: none seen Atrial Septum: Normal DOPPLER/COLOR FLOW DOPPLER RESULTS: Diastolic Function: Grade II, increased mean LA pres. Tricuspid Valve: mild TV regurgitation Pulmonic Valve: normal PV AV Regurgitation: No AR seen AV Stenosis: no AV Area: ??cm2 AV Pressure Gradient (mmHg): Mean: 0, Peak:0 MV Regurgitation: No MR seen MV Stenosis: no MS MV Area: ??cm2 MV Pressure Gradient (mmHg): Mean: 0 MV ERO: ??cm Regurg. Vol.: ??ml/beat Regurg. Frac.: ??% PA Pressure: 36 mmHg DOPPLER/COLOR FOLOW DOPPLER COMMENTS: No AR seen, No MR seen, no , no MS, mild TV regurgitation, normal PV. Diastolic function: Grade II, increased mean LA pres. E/e'=17 SUMMARY: In sinus rhythm; 61/min; LA is normal. Normal RV cavity size. LV cavity size is normal. ??Normal LV Ejection Fraction ??56 %. Normal LV wall thickness/mass. Normal Inferior vena cava. Normal aorta. Mild Tricuspid Regurgitation with normal estimated Pulmonary Artery Systolic Pressure. Grade II Diastolic LV Dysfunction, characterized by increased mean LA pressure. Normal global LV Myocardial longitudinal function and LV strain pattern, -21.7%; ??No previous examinations are available for comparison. Confirmed on ??02/23/2024 - 13:08:25 by Serg Reynoso MD By signing this report, the attending technical coordinator certifies that he or she has personally supervised and interpreted the echocardiogram and has reviewed and or edited and agrees with the written comments contained within the report. Procedure Note Serg Reynoso MD - 02/23/2024 Patient name: Lisa Scott Date of test: 02/23/2024 Type of test: TTE w/Doppler [facility] #: 0 Date of : 1955 (F) Toddler Caregiver: HILLARY Jordan Referring Physician: MANGO US NP Contrast Agent: Contrast Administered by: Supervised/Interpreted by: Serg Reynoso MD Diagnosis: Location: [facility] Reason for test: AFIB; Fatigue MV Structure: Normal, MV Motion: Normal, Mitral Annulus: Normal AV Structure: tricuspid and is Normal, AV Motion: Normal Aotic root: Normal, TM: Normal, PV: Normal Valvular Vegetations: none seen, Mass/Thrombi: none seen RA: Normal Measurements: M-Mode Normal Aotic Root: <3.8 LA: <3.8 RV: <2.8 LV(ED): <5.7 LV(ES): Variable 2D Linear Normal Aotic Root: 3.4 cm <3.6 Ao Indexed: 1.7 cm/M2 <2.0 LA: <3.8 RV: 4.0 cm <4.2 LV(ED): 4.8 cm <5.3 LV(ES): 2.6 cm <3.5 2D Vol. Normal Indexed Indexed Normal RA: 43.0 ml 22.0 ml/M2 9-33 LA: 61.0 ml 31.3 ml/M2 16-34 RV: <11.6 LV(ED): 96.0 ml 46-106 49.2 ml/M2 <62 LV(ES): 42.0 ml 14-42 21.5 ml/M2 <25 3D Vol. Indexed Normal LV(ED): 55.3 mL/m2 <62 LV(ES): 24.1 mL/m2 <24 LV EF: 56 % (Normal: >=54%) LV Septum: 1.1 cm (Normal: <0.9 cm) Wall Motion Scoring (1=Normal 2=Hypo 3=Akinetic 4=Dyskin./Aneurysm 0=Not visualized) Parasternal Long Dexter:MAS=1 BAS=1 MIL=1 FRANCO=1 Parasternal Short Dexter:MAS=1 MIS=1 VT=1 MIL=1 MAL=1 MA=1 Apical 4 Chambers:=1 MIS=1 BIS=1 BAL=1 MAL=1 AL=1 AC=1 Apical 2 Chambers:AI=1 VT=1 BI=1 BA=1 MA=1 AA=1 AC=1 LV Global Longitudinal Strain: -21.7% (Normal <-17%) RV Global Longitudinal Strain: LV Function: Normal LV Ejection Fraction, (EF=56%) RV Function: Normal Septal Motion: Normal Pericardial Effusion: none seen Atrial Septum: Normal DOPPLER/COLOR FLOW DOPPLER RESULTS: Diastolic Function: Grade II, increased mean LA pres. Tricuspid Valve: mild TV regurgitation Pulmonic Valve: normal PV AV Regurgitation: No AR seen AV Stenosis: no AV Area: cm2 AV Pressure Gradient (mmHg): Mean: 0, Peak:0 MV Regurgitation: No MR seen MV Stenosis: no MS MV Area: cm2 MV Pressure Gradient (mmHg): Mean: 0 MV ERO: cm Regurg. Vol.: ml/beat Regurg. Frac.: % PA Pressure: 36 mmHg DOPPLER/COLOR FOLOW DOPPLER COMMENTS: No AR seen, No MR seen, no , no MS, mild TV regurgitation, normal PV. Diastolic function: Grade II, increased mean LA pres. E/e'=17 SUMMARY: In sinus rhythm; 61/min; LA is normal. Normal RV cavity size. LV cavity size is normal. Normal LV Ejection Fraction 56 %. Normal LV wall thickness/mass. Normal Inferior vena cava. Normal aorta. Mild Tricuspid Regurgitation with normal estimated Pulmonary Artery Systolic Pressure. Grade II Diastolic LV Dysfunction, characterized by increased mean LA pressure. Normal global LV Myocardial longitudinal function and LV strain pattern, -21.7%; No previous examinations are available for comparison. Confirmed on 02/23/2024 - 13:08:25 by Serg Reynoso MD By signing this report, the attending technical coordinator certifies that he or she has personally supervised and interpreted the echocardiogram and has reviewed and or edited and agrees with the written comments contained within the report. Mango Us NP CV ECHO PROCEDURES Final Res ult * ECG 12 lead (01/26/2024 9:20 AM CDT) Mango Us NP ECG ORDERABLES Edited Resul t - Final documented in this encounter Visit Diagnoses Diagnosis Paroxysmal atrial fibrillation- Primary Atrial fibrillation Hypertension Unspecified essential hypertension Hyperlipidemia Fatigue, unspecified type Paroxysmal atrial fibrillation Atrial fibrillation Fatigue, unspecified type documented in this encounter Discontinued Medications Medication Sig Discontinue Reason Start Date End Da te colestipoL (COLESTID) 1 gram tablet TAKE 1 TABLET BY MOUTH TWICE DAILY. ADMINISTER OTHER ORAL MEDS 1 HOUR BEFORE OR 4-6 HOURS AFTER TAKING COLESTIPOL. 11/14/2023 01/26/2024 potassium gluconate 595 mg (99 mg) tablet 1 tablet (595 mg total) 01/26/2024 atorvastatin (LIPITOR) 10 mg tabletIndications:Stag e 3a chronic kidney disease (HCC) Take 1 tablet by mouth once daily 03/27/2023 01/26/2024 documented as of this encounter Care Teams Immunologist Relationship Specialty Start Date End Date Bull Taveras MD [address] [facility] [address] [place] [address] PCP - General Internal Medicine 08/24/20 Nahomi Boyce, RN Registered Nurse Pulmonary Disease 11/12/22 documented as of this encounter
--- OUTSIDE RECORDS SUMMARY | 2024-07-14 22:32 | XMS_ITS | Encounter Summary ---
Author Organization [facility] Address [address] [place] [address] Phone Care Team Providers Care Microfilm Processor Name Role Phone Bull Taveras MD Primary Care Provider [phone] Nahomi Boyce RN Unavailable Unavailabl e Encounter Details Date Type Department Care Team (Late st Contact Info) Description 12/03/2023 Telephone [facility] [address] [facility] 8th [place] [address] [place] [address] Isabel Anaya CMA Social History Tobacco Use Types Packs/Day Years [...] on file 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 Pt to arrive at 10am. Called and LVM informingpt of this. documented in this encounter Plan of Treatment Scheduled Procedures Name Priority Associated Diagnoses Date/Ti me COLONOSCOPY Encounter for screening colonoscopy COLONOSCOPY Encounter for screening colonoscopy documented as of this encounter Visit Diagnoses Not on filedocumented in this encounter Care Teams Microfilm Processor Relationship Specialty Start Date End Date Bull Taveras MD [address] [address] PCP - General Internal Medicine 08/24/20 Nahomi Boyce, RN Registered Nurse Pulmonary Disease 11/12/22 documented as of this encounter
--- OUTSIDE RECORDS SUMMARY | 2024-07-14 22:32 | XMS_ITS | Encounter Summary ---
Author Organization [facility] Address [address] [id number] Care Team Providers Care Rivet Bucker Name Role Phone Bull Taveras MD Primary Care Provider [phone] Nahomi Boyce RN Unavailable Unavailabl e Reason for Referral * Consultation (Routine) - Closed Specialty Diagnoses / Procedures Referred By Grecia paulino Referred To Contact Orthopedic Surgery Diagnoses Pain in both knees, unspecified chronicity Pooja Chapman NP [address] [facility] [address] [place] [address] Phone: tel: fax: Krysta Jay MD [address] [facility] [address] [place] [address] Phone: tel: fax: Referral ID Status Reason Start Date Expiration Date V isits Requested Visits Authorized [id number] Closed Specialty Services Required 10/06/2023 11/04/2024 1 1 Question Answer Please select the performing region: [facility] (All Locations) [[id number]] To provider: KRYSTA JAY [[id number]] # of visits: 1 Comments PLEASE REVIEW RECENT XRAY RESULTS * Consultation (Routine) - Pending Review Specialty Diagnoses / Procedures Referred By Grecia t Referred To Contact Physical Therapy Diagnoses Pain in both knees, unspecified chronicity Pooja Chapman NP [address] [facility] [address] [place] [address] Phone: tel: fax: External Order Referral ID Status Reason Start Date Expiration Date Visits Requested Visits Authorized [id number] Pending Review Evaluate and Treat 10/06/2023 11/04/2024 24 24 Question Answer PTRFR PT Evaluate and Treat Therapy options discussed with patient? 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 Referrals entered into system, pt given scheduling number to ortho, and will mail order for PT to pt. * Telephone Encounter - Dian Gupta MA - 10/06/2023 9:22 AM CDT ----- Message from Pooja Chapman NP sent at 10/06/2023 9:08 AM CDT ----- Xray with mild arthritis Would suggest an Ortho referral to Dr Jay or Romero Also would suggest some PT documented in this encounter Plan of Treatment Scheduled Procedures Name Priority Associated Diagnoses Date/Ti me COLONOSCOPY Encounter for screening colonoscopy COLONOSCOPY Encounter for screening colonoscopy Scheduled Referrals Name Type Priority Associated Diagnoses Orde r Schedule Ambulatory referral order to Physical Therapy - Outpatient Referral Routine Pain in both knees, unspecified chronicity Expected: 10/20/2023 (Approximate), Expires: 10/05/2024 Ambulatory referral to Orthopedic Recon Hip/Knee Outpatient Referral Routine Pain in both knees, unspecified chronicity Expected: 10/20/2023 (Approximate), Expires: 10/05/2024 documented as of this encounter Visit Diagnoses Diagnosis Pain in both knees, unspecified chronicity- Primary documented in this encounter Care Teams Rivet Bucker Relationship Specialty Start Date End Date Bull Taveras MD [address] [facility] [address] [place] [address] PCP - General Internal Medicine 08/24/20 Nahomi Boyce RN Registered Nurse Pulmonary Disease 11/12/22 documented as of this encounter
--- OUTSIDE RECORDS SUMMARY | 2024-07-14 22:32 | XMS_ITS | Encounter Summary ---
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 I confirmed appt details withthe pt. AIR ANNOUNCER documented in this encounter Plan of Treatment Scheduled Procedures Name Priority Associated Diagnoses Date/Ti me COLONOSCOPY Encounter for screening colonoscopy COLONOSCOPY Encounter for screening colonoscopy documented as of this encounter Visit Diagnoses Not on filedocumented in this encounter Care Teams Teachers' Aide Relationship Specialty Start Date End Date Bull Taveras MD [address] [facility] [address] [place] [address] PCP - General Internal Medicine 08/24/20 Nahomi Boyce, RN Registered Nurse Pulmonary Disease 11/12/22 documented as of this encounter
--- OUTSIDE RECORDS SUMMARY | 2024-07-14 22:32 | XMS_ITS | Encounter Summary ---
Author Organization [facility] Healthcare Address [address] [place] [address] Care Team Providers Care Personnel Scheduler Name Role Phone Bull Taveras MD Primary Care Provider [phone] Nahomi Boyce RN Unavailable Unavailabl e Encounter Details Date Type Department Care Team (Latest Contact Info) Description 05/14/2024 11:41 AM CDT - 05/14/2024 11:59 PM CDT Hospital Encounter [facility] [address] [place] [id number] SOB (shortness of breath); Acute cough Discharge Disposition: Discharge to home or self care Social History Tobacco Use Types Packs/Day Years [...] on file Legal Sex Female 6:46 AM SUPERVISOR 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 Gender Identity Not on file Sexual Orientation Straight 03/05/2021 1: 44 PM CDT Occupation Industry Job Start Date Job End Date 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 Not on file Not on file Not on file documented as of this encounter Medications at Time of Discharge albuterol HFA (PROVENTIL HFA,VENTOLIN HFA,PROAIR HFA) 90 mcg/actuation inhaler INHALE 2 PUFFS BY MOUTH EVERY 4 HOURS NEEDED FOR WHEEZING 18 g 5 03/08/2024 cetirizine (ZyrTEC) 10 mg tablet Take 1 tablet (10 mg total) by mouth daily [employer] [facility] Allergy chlorthalidone (HYGROTON) 25 mg tabletIndications: Essential hypertension Take 1/2 (one-half) tablet by mouth once daily 30 tablet 2 04/15/2024 Eliquis 5 mg tablet TAKE 1 TABLET BY MOUTH EVERY 12 HOURS 180 tablet 04/02/2024 magnesium oxide 400 mg magnesium capsule Take by mouth umeclidinium-vilan teroL (Anoro Ellipta) 62.5-25 mcg/actuation blister with device Inhale 1 puff by mouth once daily 60 each 5 02/02/2024 predniSONE (DELTASONE) 20 mg tablet Take 1 tablet (20 mg) by mouth daily for 5 days 5 tablet 05/14/2024 4 dilTIAZem CD 120 mg 24 hr capsule Take 1 capsule by mouth once daily 90 capsule 03/26/2024 4 lisinopriL (PRINIVIL,ZESTRIL) 10 mg tablet Take 1 tablet by mouth once daily 90 tablet 03/07/2024 4 documented as of this encounter Discharge Disposition Disposition Code Departure Means Destination Discharge to home or self care documented in this encounter Plan of Treatment Scheduled Procedures Name Priority Associated Diagnoses Date/Ti me COLONOSCOPY Encounter for screening colonoscopy COLONOSCOPY Encounter for screening colonoscopy documented as of this encounter Procedures Procedure Name Priority Date/Time Associated Diagnosis Comments XR CHEST PA LATERAL 2 VIEWS Schedule Routine, Read Routine (OP Routine) 05/14/2024 12:02 PM CDT SOB (shortness of breath) Acute cough documented in this encounter Results * X-ray chest 2 views (05/14/2024 12:02 PM CDT) Anatomical Region Laterality Modality Body, Chest N/A Computed Radiogr aphy 05/17/2024 4:19 AM SUPERVISOR SPINNING Narrative 05/17/2024 4:24 AM SUPERVISOR SPINNING EXAM DESCRIPTION: ?? XR CHEST PA LATERAL [...] AM T: ??05/17/2024 4:24 AM Report ID: [id number] Reading Location: ??[id number] Procedure Note Jacqui Perry MD - 05/17/2024 [...] Jacqui Perry M.D. SN: SN Report ID: [id number] Reading Location: [id number] Conner Vale MD IMG XR PROCEDURES Final Result documented in this encounter Visit Diagnoses Diagnosis SOB (shortness of breath) Shortness of breath Acute cough documented in this encounter Additional Health Concerns Infection Onset Date Last Indicated Resolved Time COVID: Suspected 05/14/2024 05/14/2024 05/14/2024 3:46 PM CDT Rhino/Enterovirus 05/14/2024 05/14/2024 05/21/2024 3:05 AM SUPERVISOR SPINNING documented as of this encounter Care Teams Personnel Scheduler Relationship Specialty Start Date End Date Bull Taveras MD [address] [address] PCP - General Internal Medicine 08/24/20 Nahomi Boyce RN Registered Nurse Pulmonary Disease 11/12/22 documented as of this encounter
--- OUTSIDE RECORDS SUMMARY | 2024-07-14 22:32 | XMS_ITS | Encounter Summary ---
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 Gender Identity Not on file Sexual Orientation Straight 03/05/2021 1: 44 PM CDT documented as of this encounter Medications at Time of Discharge cetirizine (ZyrTEC) 10 mg tablet Take 1 tablet (10 mg total) by mouth daily [employer] Allergy cholecalciferol (VITAMIN D-3) 25 mcg (1,000 unit) tabletIndications: CKD Take 1 tablet (1,000 Units total) by mouth daily 30 tablet 11 03/27/2021 magnesium oxide 400 mg magnesium capsule Take by mouth albuterol HFA (PROVENTIL HFA,VENTOLIN HFA,PROAIR HFA) 90 mcg/actuation inhaler Inhale 2 puffs every 6 (six) hours as needed for wheezing 1 each 12/26/2022 4 atorvastatin (LIPITOR) 10 mg tabletIndications: Stage 3a chronic kidney disease (HCC) Take 1 tablet by mouth once daily 90 tablet 3 03/27/2023 4 chlorthalidone (HYGROTON) 25 mg tabletIndications: Essential hypertension Take 0.5 tablets (12.5 mg total) by mouth daily 45 tablet 3 03/04/2023 4 dilTIAZem CD/XR/XT (DILT-XR) 120 mg 24 hr capsule Take 1 capsule (120 mg total) by mouth daily 90 capsule 3 12/31/2022 4 Eliquis 5 mg tablet TAKE 1 TABLET BY MOUTH EVERY 12 HOURS 180 tablet 3 04/22/2023 4 lisinopriL (PRINIVIL,ZESTRIL) 10 mg tablet Take 1 tablet by mouth once daily 90 tablet 09/11/2023 4 potassium gluconate 595 mg (99 mg) tablet 1 tablet (595 mg total) 4 umeclidinium-vilan teroL (Anoro Ellipta) 62.5-25 mcg/actuation blister with device Inhale 1 puff by mouth once daily 60 each 5 08/14/2023 4 documented as of this encounter Discharge Disposition Disposition Code Departure Means Destination Discharge to home or self care documented in this encounter Plan of Treatment Scheduled Procedures Name Priority Associated Diagnoses Date/Ti me COLONOSCOPY Encounter for screening colonoscopy COLONOSCOPY Encounter for screening colonoscopy documented as of this encounter Procedures Procedure Name Priority Date/Time Associated Diagnosis Comments XR KNEE BILATERAL 3 VIEWS Schedule Routine, Read Routine (OP Routine) 10/28/2023 10:39 AM CDT Pain in both knees, unspecified chronicity documented in this encounter Results * XR Knee Bilateral [...] documented in this encounter Visit Diagnoses Diagnosis Pain in both knees, unspecified chronicity documented in this encounter Care Teams Register Repairer Relationship Specialty Start Date End Date Bull Taveras MD [address] [address] PCP - General Internal Medicine 08/24/20 Nahomi Boyce, RN Registered Nurse Pulmonary Disease 11/12/22 documented as of this encounter
--- OUTSIDE RECORDS SUMMARY | 2024-07-14 22:32 | XMS_ITS | Encounter Summary ---
Author Organization [facility] Address [address] [place] [address] Phone Care Team Providers Care Small Arms Artillery Repairer Name Role Phone Bull Taveras MD Primary Care Provider [phone] Nahomi Boyce RN Unavailable Unavailabl e Reason for Visit * Reason Onset Date Comments Scheduling Appointments 12/02/[address] at [facility] Encounter Details Date Type Department Care Team (Late st Contact Info) Description 12/02/[address] Medical Office Building [address] [place] [address] Conner Vale MD [address] [facility] [address] [place] [address] Scheduling Appointments (Isa will schedule pt Ct at [facility]) Social History Tobacco Use Types Packs/Day Years [...] on file Legal Sex Female 6:46 AM DIE SETTER Gender Identity Not on file Sexual Orientation Straight 03/05/2021 1: 44 PM CDT documented as of this encounter Miscellaneous Notes * Telephone Encounter - Oksana Beverly - 12/29/2023 3:40 PM CDT finished documented in this encounter Plan of Treatment Scheduled Procedures Name Priority Associated Diagnoses Date/Ti me COLONOSCOPY Encounter for screening colonoscopy COLONOSCOPY Encounter for screening colonoscopy documented as of this encounter Visit Diagnoses Not on filedocumented in this encounter Care Teams Small Arms Artillery Repairer Relationship Specialty Start Date End Date Bull Taveras MD [address] [address] PCP - General Internal Medicine 08/24/20 Nahomi Boyce RN Registered Nurse Pulmonary Disease 11/12/22 documented as of this encounter
--- OUTSIDE RECORDS SUMMARY | 2024-07-14 22:32 | XMS_ITS | Encounter Summary ---
Author Organization [facility] Address [address] [place] [address] Phone Care Team Providers Care Forming Process Line Worker Name Role Phone Bull Taveras MD Primary Care Provider [phone] Nahomi Boyce RN Unavailable Unavailabl e Reason for Visit * Reason Onset Date Comments DME order 09/25/2023 Encounter Details Date Type Department Care Team (Late st Contact Info) Description 09/25/[address] 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 -------Fax Transmission Report------- To: Recipient at [phone] Subject: provider's note Result: The transmission was successful. Explanation: All Pages Ok Pages Sent: 6 Connect Time: 6 minutes, 7 seconds Transmit Time: 09/26/2023 09:04 Transfer Rate: 9600 Status Code: 0000 Retry Count: 0 Job Id: [id number] Unique Id: [id number] Fax Line: 7 Fax Team Otr Truck Driver: [id number] * Telephone Encounter - Michelle Truong RN - 09/25/2023 9:50 AM CDT Faxed DME order to [facility]. Will send provider's note once complete. This message was sent via [employer] [facility] IT -------Fax Transmission Report------- To: at [phone] Sent Time: 09:50 09/25/23 Subject of Fax: DME order-will send note once signed Result: The transmission was successful. Pages Sent: 002 Sent at: 09/25/23 09:50 Retry Count: 0 * Telephone Encounter - Michelle Truong RN - 09/25/2023 9:49 AM CDT ----- Message from Sonia Conway MD PhD sent at 09/25/2023 9:47 AM CDT ----- Regarding: Order I have written an Epic an order for this patient to be sent to the DME. Thanks, R documented in this encounter Plan of Treatment Scheduled Procedures Name Priority Associated Diagnoses Date/Ti mi COLONOSCOPY Encounter for screening colonoscopy COLONOSCOPY Encounter for screening colonoscopy documented as of this encounter Visit Diagnoses Not on filedocumented in this encounter Care Teams Forming Process Line Worker Relationship Specialty Start Date End Date Bull Taveras MD [address] [facility] [address] [place] [address] PCP - General Internal Medicine 08/24/20 Nahomi Boyce RN Registered Nurse Pulmonary Disease 11/12/22 documented as of this encounter
--- OUTSIDE RECORDS SUMMARY | 2024-07-14 22:32 | XMS_ITS | Encounter Summary ---
Author Organization [facility] Address [address] [place] [address] Care Team Providers Care Emergency Room Registered Nurse Name Role Phone Bull Taveras MD Primary Care Provider Nahomi Boyce RN Unavailable Unavailabl e Encounter Details Date Type Department Care Team (Late st Contact Info) Description 02/26/2024 Orders Only [facility] [address] [facility] [address] [facility] [place] [address] Bull Taveras MD [address] [facility] [address] [place] [address] Social History Tobacco Use Types [...] on file Legal Sex Female 6:46 AM SHAPER SETTER Gender Identity Not on file Sexual Orientation Straight 03/05/2021 1: 44 PM CDT documented as of this encounter Plan of Treatment Scheduled Procedures Name Priority Associated Diagnoses Date/Ti sd COLONOSCOPY Encounter for screening colonoscopy COLONOSCOPY Encounter for screening colonoscopy documented as of this encounter Procedures Procedure Name Priority Date/Time Associated Diagnosis Comments GI - RESULT 02/26/2024 3:41 PM CDT documented in this encounter Results * GI - RESULT (02/26/2024 3:41 PM CDT) Anatomical Region Laterality Modality Other Bull Taveras MD Final Result documented in this encounter Visit Diagnoses Not on filedocumented in this encounter Care Teams Emergency Room Registered Nurse Relationship Specialty Start Date End Date Bull Taveras MD [address] [address] PCP - General Internal Medicine 08/24/20 Nahomi Boyce, RN Registered Nurse Pulmonary Disease 11/12/22 documented as of this encounter
--- OUTSIDE RECORDS SUMMARY | 2024-07-14 22:32 | XMS_ITS | Encounter Summary ---
Author Organization [facility] Address [address] [place] [address] Phone Care Team Providers Care Metal Sprayer Machined Parts Name Role Phone Bull Taveras MD Primary Care Provider [phone] Nahomi Boyce RN Unavailable Unavailabl e Reason for Referral * Procedure (Routine) - Authorized Specialty Diagnoses / Procedures Referred By Contjolene t Referred To Contact Diagnoses Arthritis of both knees Procedures Large Joint Injection: L knee Unique Hurst NP [address] [facility] [address] [place] [address] Phone: tel: fax: [facility] (All Locations) Referral ID Status Reason Start Date Expiration Date V isits Requested Visits Authorized [id number] Authorized 04/26/2024 05/26/2025 1 1 Encounter Details Date Type Department Care Team (Late st Contact Info) Description 04/26/2024 11:00 AM CDT Office Visit [facility] Orthopaedic Surgery [address] [place] [address] Unique Hurst NP [address] [facility] [address] [place] [address] Arthritis of both knees (Primary Dx) Social History Tobacco Use Types [...] on file Legal Sex Female 6:46 AM COMMANDING OFFICER GARAGE Gender Identity Not on file Sexual Orientation Straight 03/05/2021 1: 44 PM CDT Occupation Industry Job Start Date Job End Date 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 Not on file Not on file Not on file documented as of this encounter Progress Notes * Unique Hurst NP - 04/26/2024 11:00 AM CDT Procedures * Unique Hurst NP - 04/26/2024 11:00 AM CDTAssociated Order(s): Large Joint Injection: L knee Post-Procedure Diagnose(s): Arthritis of both knees Large Joint Injection: L knee Performed by: Unique Hurst NP Authorized by: Unique Hurst NP Large Joint Injection/Aspiration: Consent Given by: Patient Site marked: the procedure site was marked Verbal consent obtained: Yes Supporting Documentation: Indications: Diagnostic and pain Procedure Details: Location: Knee Site: L knee Prep: patient was prepped and draped in usual sterile fashion Needle Size: 25 G Ultrasound guided: No Medications: 5 mL BUPivacaine HCl 0.25 % (2.5 mg/mL); 40 mg triamcinolone 40 mg/mL Patient tolerance: Patient tolerated the procedure well with no immediate complications Presents today for follow up. She had bilateral intra-articular steroid knee injections November 24, 2023. She feels the right knee is still doing well from that injection. Discomfort in the left knee is rated 7/10, stabbing and burning. She applies Voltaren gel 1% manage pain. She also ices. No recent injury. Left knee without erythema, medial effusion. No lower extremity lesions, rashes or skin breakdown. She will not submerge the left leg in water for the next 3 days. Discussed routine icing. Unique Hurst RN, ANP-BC Adult Nurse Practitioner [facility] Orthoped[facility] In collaborative practice with Dr. Bower Dictating using Fluency Direct. Cosmetic Surgeon variances may occur. documented in this encounter Plan of Treatment Scheduled Procedures Name Priority Associated Diagnoses Date/Ti me COLONOSCOPY Encounter for screening colonoscopy COLONOSCOPY Encounter for screening colonoscopy documented as of this encounter Procedures Procedure Name Priority Date/Time Associated Diagnosis Comments HI ARTHROCENTESIS ASPIR&/INJ MAJOR JT/BURSA W/O US Routine 04/26/2024 11:00 AM CDT Arthritis of both knees documented in this encounter Results * HI ARTHROCENTESIS ASPIR&/INJ MAJOR JT/BURSA W/O US (04/26/2024 [...] well with no immediate complications us Unique Hurts NP IN CLINIC/BEDSIDE ORDERABLES Final Result documented in this encounter Visit Diagnoses Diagnosis Arthritis of both knees- Primary documented in this encounter Administered Medications Inactive Administered Medications - up to 3 most recent administrations Medication Order MAR Action Action Date Dose Rate Site BUPivacaine HCl (MARCAINE) 0.25 % (2.5 mg/mL) injection 5 mL 5 mL, other, One-Time Injection, Starting on Fri04/26/24 at 1100, For 1 doseIndications:Arthritis of both knees Given 04/26/2024 11:00 AM CDT 5 mL Left Knee triamcinolone (KENALOG) 40 mg/mL injection 40 mg 40 mg, intra-articular, One-Time Injection, Starting on Fri04/26/24 at 1100, For 1 doseIndications:Arthritis of both knees Given 04/26/2024 11:00 AM CDT 40 mg Lef t Knee documented in this encounter Care Teams Metal Sprayer Machined Parts Relationship Specialty Start Date End Date Bull Taveras MD [address] [address] PCP - General Internal Medicine 08/24/20 Nahomi Boyce RN Registered Nurse Pulmonary Disease 11/12/22 documented as of this encounter
--- OUTSIDE RECORDS SUMMARY | 2024-07-14 22:32 | XMS_ITS | Encounter Summary ---
Author Organization [facility] Address [address] [place] [address] Phone Care Team Providers Care Piano Tuner Name Role Phone Bull Taveras MD Primary Care Provider [phone] Nahomi Boyce RN Unavailable Unavailabl e Encounter Details Date Type Department Care Team (Late st Contact Info) Description 05/14/2024 Telephone [facility] Pulmonary [address] [facility] 8th [place] [address] [place] [address] Pooja Andrews RN Social History Tobacco Use Types Packs/Day Years [...] on file Legal Sex Female 6:46 AM PET TRAINER Gender Identity Not on file Sexual Orientation Straight 03/05/2021 1: 44 PM CDT Occupation Industry Job Start Date Job End Date 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 Not on file Not on file Not on file documented as of this encounter Ordered Prescriptions Prescription Sig Dispense Quantity Refills Last Filled Start Date End Date predniSONE (DELTASONE) 20 mg tablet Take 1 tablet (20 mg) by mouth daily for 5 days 5 tablet 05/14/2024 05/19/2024 documented in this encounter Miscellaneous Notes * Telephone Encounter - Pooja Andrews RN - 05/14/2024 3:58 PM CDT 05/14/24 1613 Spoke with pt. Strict ER precautions given. Pt verbalized understanding and had no further questions or concerns at this time. Requested pt to touch base early next week to let us know how she is doing. Prescription sent. ----- Message from Conner Vale MD sent at 05/14/2024 3:51 PM CDT ----- ELIJAH Patton on Ms. Scott shows rhinovirus, common cold. Her CXR does NOT show any pneumonia. We can give her Prednisone 20mg daily for 5 days and ER warnings for any worsening over the weekend. Thanks, documented in this encounter Plan of Treatment Scheduled Procedures Name Priority Associated Diagnoses Date/Ti me COLONOSCOPY Encounter for screening colonoscopy COLONOSCOPY Encounter for screening colonoscopy documented as of this encounter Visit Diagnoses Not on filedocumented in this encounter Additional Health Concerns Infection Onset Date Last Indicated Resolved Time COVID: Suspected 05/14/2024 05/14/2024 05/14/2024 3:46 PM CDT Rhino/Enterovirus 05/14/2024 05/14/2024 05/21/2024 3:05 AM PET TRAINER documented as of this encounter Care Teams Piano Tuner Relationship Specialty Start Date End Date Bull Taveras MD [address] [address] PCP - General Internal Medicine 08/24/20 Nahomi Boyce RN Registered Nurse Pulmonary Disease 11/12/22 documented as of this encounter
--- OUTSIDE RECORDS SUMMARY | 2024-07-14 22:32 | XMS_ITS | Encounter Summary ---
Author Organization [facility] Address [address] [place] [address] Care Team Providers Care Java Developer With Security Clearance Name Role Phone Bull Taveras MD Primary Care Provider [phone] Nahomi Boyce RN Unavailable Unavailabl e Encounter Details Date Type Department Care Team (Late st Contact Info) Description 10/31/2023 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 Gender Identity Not on file Sexual Orientation Straight 03/05/2021 1: 44 PM CDT documented as of this encounter Miscellaneous Notes * Telephone Encounter - Lisa Cortés MA - 10/31/2023 8:34 AM CDT Pt aware sent records to gi specialist * Telephone Encounter - Lisa Cortés MA - 10/31/2023 8:34 AM CDT ----- Message from Bull Taveras MD sent at 10/22/2023 3:30 PM CDT ----- May have celiac, refer to gi documented in this encounter Plan of Treatment Scheduled Procedures Name Priority Associated Diagnoses Date/Ti me COLONOSCOPY Encounter for screening colonoscopy COLONOSCOPY Encounter for screening colonoscopy documented as of this encounter Visit Diagnoses Not on filedocumented in this encounter Care Teams Java Developer With Security Clearance Relationship Specialty Start Date End Date Bull Taveras MD [address] [address] PCP - General Internal Medicine 08/24/20 Nahomi Boyce, RN Registered Nurse Pulmonary Disease 11/12/22 documented as of this encounter
--- OUTSIDE RECORDS SUMMARY | 2024-07-14 22:32 | XMS_ITS | Encounter Summary ---
Author Organization [facility] Address [address] [place] [address] Phone Care Team Providers Care Boiler Control Room Operator Name Role Phone Bull Taveras MD Primary Care Provider Nahomi Boyce RN Unavailable Unavailabl e Reason for Visit * Cardiology (Routine) - Closed Specialty Diagnoses / Procedures Referred By Contac t Referred To Contact Diagnoses Paroxysmal atrial fibrillation (CMS/HCC) (HCC) Fatigue, unspecified type Procedures Transthoracic Echo (TTE) Complete W Doppler/CF Zora Us NP Phone: tel: fax: [facility] Referral ID Status Reason Start Date Expiration Date Visits Re quested Visits Authorized [id number] Closed 01/26/2024 02/24/2025 1 1 Encounter Details Date Type Department Care Team (Latest Contact Info) Description 02/23/2024 11:30 AM CDT Ancillary Procedure [facility] [address] [place] [address] Paroxysmal atrial fibrillation; Fatigue, unspecified type Social History Tobacco Use [...] on file 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 Gender Identity Not on file Sexual Orientation Straight 03/05/2021 1: 44 PM CDT documented as of this encounter Plan of Treatment Scheduled Procedures Name Priority Associated Diagnoses Date/Ti me COLONOSCOPY Encounter for screening colonoscopy COLONOSCOPY Encounter for screening colonoscopy documented as of this encounter Procedures Procedure Name Priority Date/Time Associated Diagnosis Comments TRANSTHORACIC ECHO (TTE) COMPLETE W DOPPLER/CF WO CONTRAST Routine 02/23/2024 12:58 PM CDT Paroxysmal atrial fibrillation Fatigue, unspecified type documented in this encounter Results * TRANSTHORACIC ECHO (TTE) COMPLETE W DOPPLER/CF WO CONTRAST (02/23/2024 12:58 PM CDT) LV EF 56 % CARDIOREPORT Anatomical Region Laterality Modality Ultrasound 02/23/2024 11:3 0 AM CDT Narrative 02/23/2024 1:08 PM CDT Patient name: Lisa Scott Date of test: 02/23/2024 Type of test: TTE w/[facility] #: 0 Date of : 1955 (F) Event Management Consultant: HILLARY Jordan Referring Physician: ZORA US NP Contrast Agent: Contrast Administered by: Supervised/Interpreted by: Serg Reynoso MD Diagnosis: Location: [facility] Reason for test: AFIB; Fatigue MV Structure: [...] 2=Hypo 3=Akinetic 4=Dyskin./Aneurysm 0=Not visualized) Parasternal Long [place]:MAS=1 BAS=1 MIL=1 FRANCO=1 Parasternal Short [place]:MAS=1 MIS=1 VA=1 MIL=1 MAL=1 MA=1 Apical 4 Chambers:=1 MIS=1 BIS=1 BAL=1 MAL=1 AL=1 AC=1 Apical 2 Chambers:AI=1 VA=1 BI=1 BA=1 MA=1 AA=1 AC=1 LV Global [...] MD By signing this report, the attending hollow core door frame assembler certifies that he or she has personally supervised and interpreted the echocardiogram and has reviewed and or edited and agrees with the written comments contained within the report. Procedure Note Serg Reynoso MD - 02/23/2024 Patient name: Lisa Scott Date of test: 02/23/2024 Type of test: TTE w/Doppler [facility] #: 0 Date of : 1955 (F) Event Management Consultant: HILLARY Jordan Referring Physician: ZORA US NP Contrast Agent: Contrast Administered by: Supervised/Interpreted by: Serg Reynoso MD Diagnosis: Location: [facility] Reason for test: AFIB; Fatigue MV Structure: [...] 2=Hypo 3=Akinetic 4=Dyskin./Aneurysm 0=Not visualized) Parasternal Long [place]:MAS=1 BAS=1 MIL=1 FRANCO=1 Parasternal Short [place]:MAS=1 MIS=1 VA=1 MIL=1 MAL=1 MA=1 Apical 4 Chambers:=1 MIS=1 BIS=1 BAL=1 MAL=1 AL=1 AC=1 Apical 2 Chambers:AI=1 VA=1 BI=1 BA=1 MA=1 AA=1 AC=1 LV Global [...] MD By signing this report, the attending hollow core door frame assembler certifies that he or she has personally supervised and interpreted the echocardiogram and has reviewed and or edited and agrees with the written comments contained within the report. us Zora Us NP CV ECHO PROCEDURES Final Res ult documented in this encounter Visit Diagnoses Diagnosis Paroxysmal atrial fibrillation Atrial fibrillation Fatigue, unspecified type documented in this encounter Orders Medications Ordered That Marcos ht Not Have Been Administered Count Last Ordered Date First Ordered Date perflutren protein-a (OPTISO N) 3 mL in sodium chloride 0.9% 8 mL syringe 1 02/23/2024 documented in this encounter Care Teams Boiler Control Room Operator Relationship Specialty Start Date End Date Konzen, Bull L., MD [address] [address] PCP - General Internal Medicine 08/24/20 Nahomi Boyce, RN Registered Nurse Pulmonary Disease 11/12/22 documented as of this encounter
--- OUTSIDE RECORDS SUMMARY | 2024-07-14 22:32 | XMS_ITS | Encounter Summary ---
Author Organization [facility] Address [address] [place] [address] Care Team Providers Care Dialysis Social Worker Name Role Phone Bull Taveras MD Primary Care Provider Nahomi Boyce RN Unavailable Unavailabl e Encounter Details Date Type Department Care Team (Late st Contact Info) Description 10/02/2023 Orders Only [facility] [address] [place] [facility] [place] [id number] Pooja Chapman, ZIA [address] [place], [place] [id number] Chronic pain of both knees (Primary Dx) Social History [...] on file Legal Sex Female 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 Gender Identity Not on file Sexual Orientation Straight 03/05/2021 1: 44 PM CDT documented as of this encounter Plan of Treatment Scheduled Procedures Name Priority Associated Diagnoses Date/Ti ia COLONOSCOPY Encounter for screening colonoscopy COLONOSCOPY Encounter for screening colonoscopy documented as of this encounter Results * XR Knee Bilateral Ap Standing (10/03/2023 2:00 PM CDT) Anatomical Region Laterality Modality Lower Extremities, Knee Bilateral Digital Radiography 10/05/2023 11:1 9 AM CDT Narrative 10/05/2023 11:21 AM CDT EXAM DESCRIPTION: XR KNEE BILATERAL AP STANDING REASON FOR STUDY: Knee pain, initial exam ?? Pt complains of chronic sandi knee pain for 50 plus years. Has had knee scopes on both knees in the past. Pain in right knee posterior. Pain in left knee anterior. No known recent injury ? FINDINGS: Upright view of both knees submitted without comparison. ?? There is mild bilateral knee osteoarthritis with chondrocalcinosis. ?? There are no fractures. ??Alignment is normal. IMPRESSION: Mild bilateral knee osteoarthritis. THIS IS AN ELECTRONICALLY VERIFIED FINAL REPORT 10/05/2023 11:21 AM - Electronically signed by ??Jose Rose M.D. D: ??10/05/2023 11:21 AM T: Report ID: [id number] Reading Location: ??[id number] Procedure Note Jose Rose MD - 10/05/2023 EXAM DESCRIPTION: XR KNEE BILATERAL AP STANDING REASON FOR STUDY: Knee pain, initial exam Pt complains of chronic sandi knee pain for 50 plus years. Has had kneescopes on both knees in the past. Pain in right knee posterior. Pain in left knee anterior. No known recent injury FINDINGS: Upright view of both knees submitted without comparison. There is mild bilateral knee osteoarthritis with chondrocalcinosis.There are no fractures. Alignment is normal. IMPRESSION: Mild bilateral knee osteoarthritis. THIS IS AN ELECTRONICALLY VERIFIED FINAL REPORT 10/05/2023 11:21 AM - Electronically signed by Jose Rose M.D. T: Report ID: [id number] Reading Location: [id number] Pooja Chapman QC SCIENTIST IMG XR PROCEDURES Final Result documented in this encounter Visit Diagnoses Diagnosis Chronic pain of both knees- Primary Chronic pain of both knees documented in this encounter Care Teams Dialysis Social Worker Relationship Specialty Start Date End Date Bull Taveras MD [address] [address] PCP - General Internal Medicine 08/24/20 Nahomi Boyce RN Registered Nurse Pulmonary Disease 11/12/22 documented as of this encounter
--- OUTSIDE RECORDS SUMMARY | 2024-07-14 22:32 | XMS_ITS | Encounter Summary ---
Author Organization [facility] Address [address] [place] [address] Care Team Providers Care Paper Wrapping Machine Operator Name Role Phone Bull Taveras MD Primary Care Provider [phone] Nahomi Boyce RN Unavailable Unavailabl e Reason for Visit * Reason Comments Hypertension Hyperlipidemia Chronic Kidney Disease Rash Intermittent flare-u ps GI Problem Encounter Details Date Type Department Care Team (Late st Contact Info) Description 10/21/2023 12:30 PM CDT Office Visit [facility] [address] [place] [phone] Bull Taveras MD [address] [place] [address] Hyperlipidemia, unspecified hyperlipidemia type (Primary Dx); Hyperglycemia; Essential hypertension; Thyroid nodule; Stage 3a chronic kidney disease (HCC); Shortness of breath; Paroxysmal atrial fibrillation (CMS/HCC) (HCC); Functional diarrhea Social History Tobacco Use Types Packs/Day Years Used Date Smoking Tobacco: Former Cigarettes Q uit: 12/13/2019 Smokeless Tobacco: Never Tobacco Cessation:Counseling Given: Not Answered AUDIT-C Answer Date Recorded Q1: How often do you have a drink containing alc ohol? 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 Gender Identity Not on file Sexual Orientation Straight 03/05/2021 1: 44 PM CDT documented as of this encounter Last Filed Vital Signs Vital Sign Reading Time Taken Comments Blood Pressure 142/75 10/21/2023 12:35 PM CDT Pulse 74 10/21/2023 12:35 PM CDT Temperature - - Respiratory Rate - - Oxygen Saturation - - Inhaled Oxygen Concentration - - Weight 90.4 kg (199 lb 6.4 oz) 10/21/2023 12:35 PM CDT Height 163.8 cm (5' 4.5 ) 10/21/2023 12:35 PM CD T Body Mass Index 33.7 10/21/2023 12:35 PM CDT documented in this encounter Progress Notes * Bull Taveras MD - 10/21/2023 12:30 PM CDT Images from the original note were not included. Subjective/Objective Patient ID: Lisa Scott is a 68 y.o. female. Chief Complaint Hypertension, Hyperlipidemia, Chronic Kidney Disease, Rash (Intermittent flare- ups ), and GI Problem Hypertension Pertinent negatives include no chest pain, headaches, palpitations or shortness of breath. Hyperlipidemia Pertinent negatives include no chest pain or shortness of breath. Rash Associated symptoms include diarrhea. Pertinent negatives include no cough, fatigue, fever, shortness of breath, sore throat or vomiting. GI Problem The primary symptoms include diarrhea and rash. Primary symptoms do not include fever, fatigue, abdominal pain, nausea, vomiting, dysuria or arthralgias. The illness does not include constipation or back pain. She does have a previous history of hypertension, obstructive sleep apnea, hyperlipidemia, chronic kidney disease stage IIIB, COPD, thyroid nodule status post biopsy in 2020. She had presented to an outside hospital emergency room for palpitations. She was found to be in atrial fibrillation with RVR. She has converted to normal sinus rhythm and now is on Eliquis 5 mg q.12hours as well as diltiazem 120 mg extended release every 24 hours. The patient reports that she drinks to coffee beverages a day. She does not abuse alcohol. She has been using a CPAP mask faithfully for the last 2 months. Currently she feels well. She has had no further palpitations. She denies any increase in her baseline shortness of breath. Denies any chest discomfort, edema, dizziness, or near fainting. COPD, has been doing better. Pft is improved. Has been doing pulmonary rehab and has lost weight. She is feeling much better her blood pressure has also been lower as well. Has had diarrhea, > 50% of the days of he week, many episodes per day. ? gluten Past Surgical History: Procedure Laterality Date REPAIR KNEE LIGAMENT Family History Problem Relation Age of Onset Diabetes Mother Asthma Mother COPD Mother Atrial fibrillation Mother Hyperlipidemia Mother COPD Father Heart disease Father Hypertension Father Kidney disease Neg Hx Immunization History Administered Date(s) Administered Influenza, Quadrivalent, High Dose, Preservative Free, Intrr 07/03/2020 Influenza, Quadrivalent, Recombinant, Egg Free, Preservative Free, Intramuscular 07/29/2019 Influenza, Quadrivalent, Split, Preservative Free, Intramuscular 07/16/2013 Moderna SARS-CoV-2 Monovalent Vaccination (12+ YRS) 08/23/2020, 09/26/2020 Pneumococcal Conjugate PCV 13 07/29/2019 Current Outpatient Medications Medication Sig albuterol HFA (PROVENTIL HFA,VENTOLIN HFA,PROAIR HFA) 90 mcg/actuation inhaler Inhale 2 puffs every6 (six) hours as needed for wheezing atorvastatin (LIPITOR) 10 mg tablet Take 1 tablet by mouth once daily cetirizine (ZyrTEC) 10 mg tablet Take 1 tablet (10 mg total) by mouth daily [employer] Allergy chlorthalidone (HYGROTON) 25 mg tablet Take 0.5 tablets (12.5 mg total) by mouth daily cholecalciferol (VITAMIN D-3) 25 mcg (1,000 unit) tablet Take 1 tablet (1,000 Units total) by mouthdaily dilTIAZem CD/XR/XT (DILT-XR) 120 mg 24 hr capsule Take 1 capsule (120 mg total) by mouth daily Eliquis 5 mg tablet TAKE 1 TABLET BY MOUTH EVERY 12 HOURS lisinopriL (PRINIVIL,ZESTRIL) 10 mg tablet Take 1 tablet by mouth once daily magnesium oxide 400 mg magnesium capsule Take by mouth potassium gluconate 595 mg (99 mg) tablet 1 tablet (595 mg total) umeclidinium-vilanteroL (Anoro Ellipta) 62.5-25 mcg/actuation blister with device Inhale 1 puff by mouth once daily Review of Systems Constitutional: Negative for appetite change, fatigue, fever and unexpected weight change. HENT: Negative for ear pain, hearing loss and sore throat. Eyes: Negative for visual disturbance. Respiratory: Negative for cough, shortness of breath and wheezing. Cardiovascular: Negative for chest pain, palpitations and leg swelling. Gastrointestinal: Positive for diarrhea. Negative for abdominal pain, anal bleeding, blood in stool, constipation, nausea and vomiting. Endocrine: Negative for cold intolerance, heat intolerance, polydipsia, polyphagia and polyuria. Genitourinary: Negative for dysuria and hematuria. Musculoskeletal: Negative for arthralgias, back pain and joint swelling. Skin: Positive for rash. Neurological: Negative for dizziness, weakness and headaches. Hematological: Negative for adenopathy. Does not bruise/bleed easily. Psychiatric/Behavioral: Negative for dysphoric mood. The patient is not nervous/anxious. Breast: Negative for tenderness and lump(s). Patient Vital Signs for the past 24 hrs: BP Pulse Height Weight 10/21/23 1235 142/75 74 163.8 cm (5' 4.5 ) 90.4 kg (199 lb 6.4 oz) Wt Readings from Last 3 Encounters: 10/21/23 90.4 kg (199 lb 6.4 oz) 06/16/23 85.7 kg (189 lb) 03/04/23 86.7 kg (191 lb 3.2 oz) Physical Exam Vitals and nursing note reviewed. Constitutional: General: She is not in acute distress. Appearance: Normal appearance. She is normal weight. HENT: Head: Normocephalic and atraumatic. Right Ear: Tympanic membrane normal. Left Ear: Tympanic membrane normal. Nose: Nose normal. No congestion. Mouth/Throat: Mouth: Mucous membranes are moist. Pharynx: Oropharynx is clear. No oropharyngeal exudate. Eyes: General: No scleral icterus. Extraocular Movements: Extraocular movements intact. Conjunctiva/sclera: Conjunctivae normal. Pupils: Pupils are equal, round, and reactive to light. Cardiovascular: Rate and Rhythm: Normal rate and regular rhythm. Pulses: Normal pulses. Heart sounds: Normal heart sounds. No murmur heard. No gallop. Pulmonary: Effort: Pulmonary effort is normal. Breath sounds: Normal breath sounds. No wheezing, rhonchi or rales. Abdominal: General: Abdomen is flat. Bowel sounds are normal. Palpations: Abdomen is soft. There is no mass. Tenderness: There is no abdominal tenderness. There is no guarding. Hernia: No hernia is present. Musculoskeletal: General: No swelling, tenderness or deformity. Normal range of motion. Cervical back: No rigidity. Right lower leg: No edema. Left lower leg: No edema. Lymphadenopathy: Cervical: No cervical adenopathy. Skin: General: Skin is warm and dry. Capillary Refill: Capillary refill takes less than 2 seconds. Findings: No rash. Neurological: General: No focal deficit present. Mental Status: She is alert and oriented to person, place, and time. Mental status is at baseline. Cranial Nerves: No cranial nerve deficit. Motor: No weakness. Deep Tendon Reflexes: Reflexes normal. Psychiatric: Mood and Affect: Mood normal. Thought Content: Thought content normal. Assessment/Plan Diagnoses and all orders for this visit: Hyperlipidemia, unspecified hyperlipidemia type (E78.5) (Primary) - POCT lipid panel Hyperglycemia (R73.9) - POCT glucose Essential hypertension (I10) Thyroid nodule (E04.1) Stage 3a chronic kidney disease (HCC) (N18.31) Comments: stable Shortness of breath (R06.02) Comments: stable Paroxysmal atrial fibrillation (CMS/HCC) (HCC) (I48.0) Functional diarrhea (K59.1) Labs Lab Results Component Value Date HGBA1C 5.9 (H) 12/24/2022 Lab Results Component Value Date POCCHOL 185 10/21/2023 POCCHOL 171 09/13/2022 POCCHOL 175 05/16/2022 Lab Results Component Value Date POCHDL 76 10/21/2023 POCHDL 69 09/13/2022 POCHDL 69 05/16/2022 Lab Results Component Value Date POCLDL 86 10/21/2023 POCLDL 79 09/13/2022 POCLDL 83 05/16/2022 Lab Results Component Value Date POCTRIG 116 10/21/2023 POCTRIG 114 09/13/2022 POCTRIG 113 05/16/2022 No results found for: A1C Lab Results Component Value Date CREATININE 1.48 (H) 02/17/2023 CREATININE 1.44 (H) 12/24/2022 CREATININE 1.46 (H) 12/24/2022 Lab Results Component Value Date COLORU Yellow 02/17/2023 CLARITYU Clear 05/05/2021 GLUCOSEUR Negative 02/17/2023 BILIRUBINUR Negative 08/07/2021 KETONESU Negative 02/17/2023 SPECGRAVU 1.015 08/07/2021 BLOODUR Negative 05/05/2021 SUSSY 5.5 08/07/2021 PROTUR Negative 08/07/2021 UROBILINOGEN 0.2 08/07/2021 POCURNITRITE Negative 08/07/2021 LOTNUMBER [id number] 08/07/2021 Bull Taveras MD documented in this encounter Plan of Treatment Scheduled Procedures Name Priority Associated Diagnoses Date/Ti me COLONOSCOPY Encounter for screening colonoscopy COLONOSCOPY Encounter for screening colonoscopy documented as of this encounter Procedures Procedure Name Priority Date/Time Associated Diagnosis Comments CALPROTECTIN, FECAL Routine 10/24/2023 12:00 PM CDT Functional diarrhea CELIAC DISEASE COMPLETE PANEL Routine 10/21/2023 1:33 PM CDT Functional diarrhea POCT GLUCOSE [id number] Routine 10/21/2023 12 :20 PM CDT Hyperglycemia POCT LIPID PANEL Routine 10/21/2023 12:2 0 PM CDT Hyperlipidemia, unspecified hyperlipidemia type documented in this encounter Results * Calprotectin, fecal (10/24/2023 12:00 PM CDT) Calprotectin, Fecal 24 0 - 120 ug/g [facility] - 01 Comment: Concentration ? Interpretation ?? Follow-Up < 5 - 50 ug/g ? Normal ? None >50 -120 ug/g ? Borderline ? Re-evaluate in 4-6 weeks ?>120 ug/g ? Abnormal ? Repeat as clinically ? indicated Stool 10/24/2023 12:0 0 PM CDT 10/24/2023 Narrative [facility] - 10/27/2023 8:08 PM CDT Performed at: ??01 - Lab[address] ??[id number] Lead Game Designer: Mya Carreno MD, Phone: ??[phone] us Bull Taveras MD LAB BODY FLUIDS AND STOOLS OR DERABLES Final Result [facility] * (ABNORMAL) Celiac disease complete panel (10/21/2023 1:33 PM CDT) t-Transglutaminase (tTG) IgA <2 0 - 3 U/mL [facility] - Comment: ?Negative ?0 - ??3 ?Weak Positive ?? 4 - 10 ?Positive ? >10 Tissue Transglutaminase (tTG) has been identified as the endomysial antigen. ??Studies have demonstr- ated that endomysial IgA antibodies have over 99% specificity for gluten sensitive enteropathy. Immunoglobulin A, Qn, Serum 399(H) 87 - 352 mg/dL [facility] - 01 Blood 10/21/2023 1:33 PM CDT 10/21/2023 Narrative [facility] - 10/22/2023 4:12 PM CDT Performed at: ??01 - [facility] [address] [place], [place] ??[id number] Lead Game Designer: Singh Chavez PhD, Phone: ??[phone] us Bull Taveras MD LAB BLOOD ORDERABLES Final Re sult [facility] - 01 * POCT glucose (10/21/2023 12:20 PM CDT) Glucose Blood, POC 95 mg/dL Blood 10/21/2023 12:2 0 PM CDT us Bull Taveras MD POINT OF CARE TEST ORDERABLES Final Result * POCT lipid panel (10/21/2023 12:20 PM CDT) Cholesterol, POC 185 mg/dL HDL, POC 76 mg/dL Triglycerides, POC 116 mg/dL LDL Cholesterol POC 86 mg/dL Chol/HDL Ratio, POC 2.4 Non-HDL Cholesterol, POC 109 mg/dL Cholesterol Total, POC 185 mg/dL Capillary blood 10/21/2023 1 2:20 PM CDT us Bull Taveras MD POINT OF CARE TEST ORDERABLES Final Result documented in this encounter Visit Diagnoses Diagnosis Hyperlipidemia, unspecified hyperlipidemia type- Primary Hyperglycemia Other abnormal glucose Essential hypertension Unspecified essential hypertension Thyroid nodule Nontoxic uninodular goiter Stage 3a chronic kidney disease (HCC) Shortness of breath Paroxysmal atrial fibrillation (CMS/HCC) (HCC) Atrial fibrillation Functional diarrhea documented in this encounter Discontinued Medications Medication Sig Discontinue Reason Start Date End Da te azithromycin (ZITHROMAX) 250 mg tablet Take 2 tabs (500 mg) by mouth today, than 1 tab (250 mg) daily for 4 days. Therapy completed 07/21/2023 10/21/2023 lysine 500 mg tablet 1 tablet (500 mg total) Therapy completed 10/21/2023 documented as of this encounter Care Teams Paper Wrapping Machine Operator Relationship Specialty [place] [address] [place] [address], [place] [address] PCP - General Internal Medicine 08/24/20 Nahomi Boyce, RN Registered Nurse Pulmonary Disease 11/12/22 documented as of this encounter
--- OUTSIDE RECORDS SUMMARY | 2024-07-14 22:32 | XMS_ITS | Encounter Summary ---
Author Organization [facility] Healthcare Address [address] [place] [address] Care Team Providers Care Forming Machine Adjuster Name Role Phone Bull Taveras MD Primary Care Provider [phone] Nahomi Boyce RN Unavailable Unavailabl e Reason for Referral * MRI/CAT/PET Scan (Routine) - Closed Specialty Diagnoses / Procedures Referred By Contac t Referred To Contact Radiology Diagnoses Chronic obstructive pulmonary disease with acute lower respiratory infection (HCC) COVID Procedures CT Chest WO Contrast Conner Vale MD [address] [facility] [address] [place] [address] Phone: tel: fax: [address] [phone] Referral ID Status Reason Start Date Expiration Date Visits Re quested Visits Authorized [id number] Closed 11/12/2022 12/12/2023 1 1 THERAPIST Reason for Visit * MRI/CAT/PET Scan (Routine) - Closed Specialty Diagnoses / Procedures Referred By Contac t Referred To Contact Radiology Diagnoses Chronic obstructive pulmonary disease with acute lower respiratory infection (HCC) COVID Procedures CT Chest WO Contrast Conner Vale MD [address] [facility] [address] [place] [address] Phone: tel: fax: [facility] [phone] [id number] Referral ID Status Reason Start Date Expiration Date Visits Re quested Visits Authorized [id number] Closed 11/12/2022 12/12/2023 1 1 Encounter Details Date Type Department Care Team (Latest Contact Info) Description 07/01/2023 8:45 AM SEX THERAPIST - 07/01/2023 11:59 PM SEX THERAPIST Hospital Encounter [facility] [id number] [id number] Chronic obstructive pulmonary disease with acute lower respiratory infection (HCC); COVID Discharge Disposition: Discharge to home or self [...] on file Legal Sex Female 6:46 AM SEX THERAPIST Gender Identity Not on file Sexual Orientation [...] as needed for wheezing 1 each 12/26/2022 atorvastatin (LIPITOR) 10 mg tabletIndications: Stage 3a [...] tablet by mouth once daily 90 tablet 06/15/2023 4 lysine 500 mg tablet 1 tablet (500 mg total) 4 potassium gluconate 595 mg (99 mg) tablet 1 tablet (595 mg total) 4 umeclidinium-vilan teroL (Anoro Ellipta) 62.5-25 mcg/actuation blister with device Inhale 1 puff by mouth once daily 60 each 5 03/03/2023 4 documented as of this encounter Discharge Disposition Disposition Code Departure Means Destination Discharge to home or self care documented in this encounter Plan of Treatment Scheduled Procedures Name Priority Associated Diagnoses Date/Ti me COLONOSCOPY Encounter for screening colonoscopy COLONOSCOPY Encounter for screening colonoscopy documented as of this encounter Procedures Procedure Name Priority Date/Time Associated Diagnosis Comments CT CHEST WO CONTRAST Schedule Routine, Read Routine (OP Routine) 07/01/2023 8:50 AM SEX THERAPIST Chronic obstructive pulmonary disease with acute lower respiratory infection (HCC) COVID documented in this encounter Results * CT Chest WO Contrast (07/01/2023 8:50 AM SEX THERAPIST) Anatomical Region Laterality Modality Body N/A Computed Tomogra phy 07/01/2023 9:10 AM SEX THERAPIST Impressions 07/01/2023 9:15 AM SEX THERAPIST No suspicious pulmonary nodules. ??Mild emphysema. Dictated by: Isabel Hadley MD The radiology attending physician has personally reviewed this study, and had reviewed and/or edited this written report and agrees with it. Electronically signed by: Roberto Coon M.D. Narrative 07/01/2023 9:15 AM SEX THERAPIST EXAMINATION: ??Computed tomography of the chest without intravenous contrast HISTORY: Lung cancer screening TECHNIQUE: ??Transaxial computed tomographic images of the chest were obtained without intravenous contrast according to the standard protocol. COMPARISON: 04/25/2022 FINDINGS: ?? Mild apical predominant centrilobular emphysema. ??Calcified granuloma in the right upper lobe. ??No suspicious pulmonary nodule. ??No pleural effusion or pneumothorax. ??No interstitial lung abnormality, pneumonia, or pulmonary edema. Heart size is normal. ??No pericardial effusion. ??Coronary arterial calcifications. ??Calcified right hilar and mediastinal lymph nodes from old granulomatous disease. ??Multinodular goiter. ??No supraclavicular or axillary lymphadenopathy. There is a small fat-containing left Bochdalek hernia. ??Imaged upper abdomen show splenic granulomas, otherwise no acute findings. Scattered thoracic spine Schmorl's nodes without suspicious bone lesions. Procedure Note Roberto Coon MD - 07/01/2023 EXAMINATION: Computed tomography of the chest without intravenous contrast HISTORY: Lung cancer screening TECHNIQUE: Transaxial computed tomographic images of the chest were obtained without intravenous contrast according to the standard protocol. COMPARISON: 04/25/2022 FINDINGS: Mild apical predominant centrilobular emphysema. Calcified granuloma in the right upper lobe. No suspicious pulmonary nodule. No pleural effusion or pneumothorax. No interstitial lung abnormality, pneumonia, or pulmonary edema. Heart size is normal. No pericardial effusion. Coronary arterial calcifications. Calcified right hilar and mediastinal lymph nodes from old granulomatous disease. Multinodular goiter. No supraclavicular or axillary lymphadenopathy. There is a small fat-containing left Bochdalek hernia. Imaged upper abdomen show splenic granulomas, otherwise no acute findings. Scattered thoracic spine Schmorl's nodes without suspicious bone lesions. IMPRESSION: No suspicious pulmonary nodules. Mild emphysema. Dictated by: Isabel Hadley MD The radiology attending physician has personally reviewed this study, and had reviewed and/or edited this written report and agrees with it. Electronically signed by: Roberto Coon M.D. Conner Vale MD IMG CT PROCEDURES Final Result documented in this encounter Visit Diagnoses Diagnosis Chronic obstructive pulmonary disease with acute lower respiratory infection (HCC) COVID documented in this encounter Care Teams Forming Machine Adjuster Relationship Specialty Start Date End Date Bull Taveras MD [address] [address] PCP - General Internal Medicine 08/24/20 Nahomi Boyce, RN Registered Nurse Pulmonary Disease 11/12/22 documented as of this encounter
--- OUTSIDE RECORDS SUMMARY | 2024-07-14 22:32 | XMS_ITS | Encounter Summary ---
Author Organization [facility] Address [address] [place] [address] Care Team Providers Care Sports Betting Manager Name Role Phone Bull Taveras MD Primary Care Provider Nahomi Boyce RN Unavailable Unavailabl e Encounter Details Date Type Department Care Team (Late st Contact Info) Description 02/24/2024 Orders Only [facility] [address] [facility] [address] [facility] [place] [address] Bull Taveras MD [address] [facility] [address] [place] [address] Social History Tobacco Use Types [...] on file Legal Sex Female 6:46 AM TRAIN OPERATIONS MANAGER Gender Identity Not on file Sexual Orientation Straight 03/05/2021 1: 44 PM CDT documented as of this encounter Plan of Treatment Scheduled Procedures Name Priority Associated Diagnoses Date/Ti pa COLONOSCOPY Encounter for screening colonoscopy COLONOSCOPY Encounter for screening colonoscopy documented as of this encounter Procedures Procedure Name Priority Date/Time Associated Diagnosis Comments GI - RESULT 02/24/2024 9:13 AM CDT documented in this encounter Results * GI - RESULT (02/24/2024 9:13 AM CDT) Anatomical Region Laterality Modality Other Bull Taveras MD Final Result documented in this encounter Visit Diagnoses Not on filedocumented in this encounter Care Teams Sports Betting Manager Relationship Specialty Start Date End Date Bull Taveras MD [address] [address] PCP - General Internal Medicine 08/24/20 Nahomi Boyce, RN Registered Nurse Pulmonary Disease 11/12/22 documented as of this encounter
--- OUTSIDE RECORDS SUMMARY | 2024-07-14 22:32 | XMS_ITS | Encounter Summary ---
Author Organization [facility] Healthcare Address [address] [place] [address] Care Team Providers Care Lap Machine Tender Name Role Phone Bull Taveras MD Primary Care Provider [phone] Nahomi Boyce RN Unavailable Unavailabl e Reason for Referral * MRI/CAT/PET Scan (Routine) - Closed Specialty Diagnoses / Procedures [facility] Referred To Contact Radiology Diagnoses DEANNE (obstructive sleep apnea) Chronic obstructive pulmonary disease, unspecified COPD type (HCC) Atrial fibrillation, unspecified type (HCC) Procedures CT Chest WO Contrast Conner Vale MD [id number] [place] [address] Phone: tel: fax: [address] [phone] Referral ID Status Reason Start Date Expiration Date Visits Re quested Visits Authorized [id number] Closed 12/02/2023 12/31/2024 1 1 RACTIVE VIDEO TECHNICIAN Reason for Visit * MRI/CAT/PET Scan (Routine) - Closed Specialty Diagnoses / Procedures [facility] Referred To Contact Radiology Diagnoses DEANNE (obstructive sleep apnea) Chronic obstructive pulmonary disease, unspecified COPD type (HCC) Atrial fibrillation, unspecified type (HCC) Procedures CT Chest WO Contrast Conner Vale MD [id number] [place] [address] Phone: tel: fax: [address] [address] Referral ID Status Reason Start Date Expiration Date Visits Re quested Visits Authorized [id number] Closed 12/02/2023 12/31/2024 1 1 Encounter Details Date Type Department Care Team (Latest Contact Info) Description 06/23/2024 10:15 AM INTERACTIVE VIDEO TECHNICIAN - 06/23/2024 11:59 PM INTERACTIVE VIDEO TECHNICIAN Hospital Encounter [facility] [address] [place] [address] DEANNE (obstructive sleep apnea); Chronic obstructive pulmonary [...] on file Legal Sex Female 6:46 AM INTERACTIVE VIDEO TECHNICIAN Gender Identity Not on file Sexual [...] MOUTH EVERY 12 HOURS 180 tablet 04/02/2024 lisinopriL (PRINIVIL,ZESTRIL) 10 mg tablet Take 1 tablet by mouth once daily 90 tablet 06/07/2024 magnesium oxide 400 mg magnesium capsule Take by mouth umeclidinium-vilan teroL (Anoro Ellipta) 62.5-25 mcg/actuation blister with device Inhale 1 puff by mouth once daily 60 each 5 02/02/2024 dilTIAZem CD 120 mg 24 hr capsule Take 1 capsule by mouth once daily 90 capsule 03/26/2024 documented as of this encounter Discharge Disposition [...] Read Routine (OP Routine) 06/23/2024 10:35 AM INTERACTIVE VIDEO TECHNICIAN DEANNE (obstructive sleep apnea) Chronic obstructive pulmonary disease, unspecified COPD type (HCC) Atrial fibrillation, unspecified type (HCC) documented in this encounter Results * CT Chest WO Contrast (06/23/2024 10:35 AM INTERACTIVE VIDEO TECHNICIAN) Anatomical Region Laterality Modality Body N/A Computed Tomogra phy 06/30/2024 3:54 PM INTERACTIVE VIDEO TECHNICIAN Narrative 06/30/2024 4:00 PM INTERACTIVE VIDEO TECHNICIAN EXAM DESCRIPTION: ?? CT CHEST WO CONTRAST [...] PM T: ??06/30/2024 4:00 PM Report ID: [id number] Reading Location: ??[id number] Procedure Note Tj Patel MD - 06/30/2024 [...] Tj Patel M.D. MM: MM Report ID: [id number] Reading Location: [place] [address] Conner Vale MD IMG CT PROCEDURES Final Result documented in this encounter Visit Diagnoses Diagnosis DEANNE (obstructive sleep apnea) Obstructive sleep apnea (adult) (pediatric) Chronic obstructive pulmonary disease, unspecified COPD type (HCC) Atrial fibrillation, unspecified type (HCC) documented in this encounter Care Teams Lap Machine Tender Relationship Specialty Start Date End Date Bull Taveras MD [address] [address] PCP - General Internal Medicine 08/24/20 Nahomi Boyce RN Registered Nurse Pulmonary Disease 11/12/22 documented as of this encounter
--- OUTSIDE RECORDS SUMMARY | 2024-07-14 22:32 | XMS_ITS | Encounter Summary ---
Author Organization [facility] Address [address] [place] [address] Phone Care Team Providers Care Agile Tester Name Role Phone Bull Taveras MD Primary Care Provider [phone] Nahomi Boyce RN Unavailable Unavailabl e Reason for Referral * Procedure (Routine) - Authorized Specialty Diagnoses / Procedures Referred By Grecia t Referred To Contact Diagnoses Arthritis of both knees Procedures Large Joint Injection: bilateral knee Unique Hurst NP [address] [place] [address] Phone: tel: fax: [facility] (All Locations) Referral ID Status Reason Start Date Expiration Date V isits Requested Visits Authorized [id number] Authorized 11/24/2023 12/23/2024 1 1 Reason for Visit * Reason Comments Pain Pain Encounter Details Date Type Department Care Team (Late st Contact Info) Description 11/24/2023 9:00 AM CDT Office Visit [facility] Orthopaedic Surgery [address] [place] [address] Unique Hurst NP [address] [facility] [address] [place] [address] Arthritis of both knees (Primary Dx) Social History Tobacco Use Types Packs/Day Years Used Date Smoking Tobacco: Former Cigarettes Q uit: 12/13/2019 Smokeless Tobacco: Never AUDIT-C Answer Date Recorded Q1: How often do you have a drink containing alc ohol? Monthly or less 11/12/2022 Average Number of Drinks Not on file Frequency of Binge Drinking Not on file 08/2022 Comments Unknown Sex and Gender Information Value Date Recorded Sex Assigned at Not on file Legal Sex Female 6:46 AM BALLET DANCER Gender Identity Not on file Sexual Orientation Straight 03/05/2021 1: 44 PM CDT documented as of this encounter Patient Instructions * Patient Instructions* Unique Hurst NP - 11/24/2023 9:00 AM CDT Images from the original note were not included. Lisa Tyler 1955 Arthritis of both knees TO DO: Do not submerge the knee in water for the next 3 days. Okay for showers. Apply ice to the knee 20 minutes daily. Contact the office in 2 weeks with response to knee injection. If your symptoms should worsen, you can reach your Provider through the office at during regular business hours M-F from 8:00 a.m. to 4:30 p.m. After 4:30 p.m. or on weekends, please call the Physician / Exchange at . If your symptoms worsen and you are unable to reach anyone at either of the numbers provided, you should seek further medical attention in the ER or with your primary care provider. Unique Hurst NP documented in this encounter Progress Notes * Unique Hurst NP - 11/24/2023 9:00 AM CDTAssociated Order(s): Large Joint Injection: bilateral knee Post-Procedure Diagnose(s): Arthritis of both knees NEW TO PROVIDER PATIENT VISIT CHIEF COMPLAINT Knee pain REFERRING PROVIDER Bull Taveras MD HISTORY OF PRESENT ILLNESS Lisa Scott is a 68 y.o. presenting for follow up bilateral knee pain. Initially seen October 28, 2023 by HENRY Marrufo. Describes bilateral knee pain [id number]-left. Discomfort is moderate to severe and sharp at the lateral aspect of the right knee and medial on the left. She has had 3 surgeries on her right knee and 1 on the left. Stated in her teens she would play football with her family. Last surgery on the right knee was considerably better she notices intermittent give-way in the right knee with stairs. No locking. No swelling. Since last visit she has been using topical Voltaren gel and icing. Has not attended physical therapy. PAST MEDICAL HISTORY She has a past medical history of Arthritis, Atrial fibrillation ([facility]) ([facility]), Chronic kidney disease, Hypertension, Obesity, and Thyroid disease. PAST SURGICAL HISTORY She has a past surgical history that includes Repair knee ligament. INITIAL REVIEW OF MEDICATIONS She has a current medication list which includes the following prescription(s): albuterol hfa, atorvastatin, cetirizine, chlorthalidone, colestipol, diltiazem cd/xr/xt, eliquis, lisinopril, magnesiumoxide, potassium gluconate, anoro ellipta, and cholecalciferol. ALLERGIES She is allergic to novocain [procaine], pine nut, and cinnamon. SOCIAL HISTORY She reports that she quit smoking about 3 years ago. Her smoking use included cigarettes. She has never used smokeless tobacco. She reports current drug use. Drug: Alcohol. No alcohol history on file. FAMILY HISTORY Her family history includes Asthma in her mother; Atrial fibrillation in her mother; COPD in her father and mother; Diabetes in her mother; Heart disease in her father; Hyperlipidemia in her mother; Hypertension in her father. PHYSICAL EXAMINATION CONSTITUTIONAL: Well-appearing, in no apparent distress EYES: No scleral icterus or conjunctival hemorrhage CARDIOVASCULAR: Skin warm and well-perfused, no peripheral edema RESPIRATORY: Breathing unlabored without accessory muscle use PSYCHIATRIC: Alert, cooperative, appropriate mood and affect SKIN: No lesions or rashes on exposed skin MUSCULOSKELETAL: Gait is normal. Right knee exam: No erythema, heat or effusion. Range of motion 0-100 ??. Negative Alcon's. Negative Maryellen's. Negative posterior drawers. No pain or laxity with varus or valgus stress applied at0 or 30??. Tender palpation over the lateral joint line. Positive patellar crepitus. Flexion/extension strength 5/5. Left knee exam: No erythema, heat or effusion. Range of motion 0-130 ??. Negative Alcon's. Negative Maryellen's. Negative posterior drawers. No pain or laxity with varus or valgus stress applied at 0 or 30??. Tender palpation over the medial joint line. Positive patellar crepitus. Flexion/extension strength 5/5. NEUROLOGIC: Sensation intact bilateral lower extremities REVIEW OF IMAGING/STUDIES Three views bilateral knees reviewed from October 28, 2023. My independent interpretation: Severe right lateral compartment osteoarthritis. Left knee with mild to moderate medial compartment osteoarthritis. Chondrocalcinosis bilaterally. 05/17/2022 10/28/2023 11/24/2023 PROMIS Upper Extremity V2.0 27.8 Pain Interference 56.3 56 57.9 Physical Function V2.0 39.8 42.5 39.9 Anxiety V1.0 45.2 52.9 46 Depression 45.8 45.9 45.6 IMPRESSION/DIAGNOSIS Right knee pain with severe lateral compartment osteoarthritis Left knee pain with mild to moderate medial compartment osteoarthritis TREATMENT/PLAN History, exam, imaging findings and working diagnosis are reviewed with the patient today. We discussed proceeding with intra-articular steroid knee injection today. The injection procedure,risks and benefits reviewed and she wishes to proceed. Do not submerge the knee in water for the next 3 days. Okay for showers. Apply ice to the knee 20 minutes daily. Contact the office in 2 weeks with response to knee injection. Large Joint Injection: bilateral knee Performed by: Unique Hurst NP Authorized by: Unique Hurst NP Large Joint Injection/Aspiration: Consent Given by: Patient Site marked: the procedure site was marked Verbal consent obtained: Yes Supporting Documentation: Indications: Pain Procedure Details: Location: Knee Site: Bilateral knee Prep: patient was prepped and draped in usual sterile fashion Needle Size: 22 G Medications Right Large Joint Injection: 3 mL lidocaine 10 mg/mL (1 %); 40 mg triamcinolone 40 mg/mL Medications Left Large Joint Injection: 3 mL lidocaine 10 mg/mL (1 %); 40 mg triamcinolone 40 mg/mL Patient tolerance: Patient tolerated the procedure well with no immediate complications Unique Hurst RN, ANP-[facility] Division of Physical Medicine and Rehabilitation In collaboration with Dr. Bower This document was created using speech voice recognition software. Grammatical errors, random word insertions, pronoun errors and incomplete sentences are an occasional consequence of this system due to software limitations, ambient noise and hardware issues. Any formal questions or concerns about content, text or information contained within the body of this dictation should be directly addressed to the provider for clarification. documented in this encounter Plan of Treatment Scheduled Procedures Name Priority Associated Diagnoses Date/Ti me COLONOSCOPY Encounter for screening colonoscopy COLONOSCOPY Encounter for screening colonoscopy documented as of this encounter Procedures Procedure Name Priority Date/Time Associated Diagnosis Comments GA ARTHROCENTESIS ASPIR&/INJ MAJOR JT/BURSA W/O US Routine 11/24/2023 9:00 AM CDT Arthritis of both knees documented in this encounter Results * GA ARTHROCENTESIS ASPIR&/INJ MAJOR JT/BURSA W/O US (11/24/2023 9:00 AM CDT) Narrative Unique Hurst NP - 11/24/2023 9:00 AM CDT Unique Hurst NP ? 11/24/2023 12:23 PM Large Joint Injection: bilateral knee Performed by: Unique Hurst NP Authorized by: Unique Hurst NP ?? Large Joint Injection/Aspiration: ??Consent Given by: ??Patient ??Site marked: the procedure site was marked ?Verbal consent obtained: Yes ?? Supporting Documentation: ??Indications: ??Pain Procedure Details: ??Location: ??Knee ??Site: ??Bilateral knee ??Prep: patient was prepped and draped in usual sterile fashion ?Needle Size: ??22 G ??Medications Right Large Joint Injection: ??3 mL lidocaine 10 mg/mL (1 %); 40 mg triamcinolone 40 mg/mL ??Medications Left ??Large Joint Injection: ??3 mL lidocaine 10 mg/mL (1 %); 40 mg triamcinolone 40 mg/mL ??Patient tolerance: ??Patient tolerated the procedure well with no immediate complications Unique Hurst NP IN CLINIC/BEDSIDE ORDERABLES Final Result documented in this encounter Visit Diagnoses Diagnosis Arthritis of both knees- Primary documented in this encounter Administered Medications Inactive Administered Medications - up to 3 most recent administrations Medication Order MAR Action Action Date Dose Rate Site lidocaine (XYLOCAINE) 10 mg/mL (1 %) injection 3 mL 3 mL, One-Time Injection, Starting on Fri11/24/23 at 0900, For 1 dose, Indications: Administration of Local AnesthesiaIndications:Administratio n of Local Anesthesia Given 11/24/2023 9:00 AM CDT 3 mL lidocaine (XYLOCAINE) 10 mg/mL (1 %) injection 3 mL 3 mL, One-Time Injection, Starting on Fri11/24/23 at 0900, For 1 dose, Indications: Administration of Local AnesthesiaIndications:Administratio n of Local Anesthesia Given 11/24/2023 9:00 AM CDT 3 mL triamcinolone (KENALOG) 40 mg/mL injection 40 mg 40 mg, intra-articular, One-Time Injection, Starting on Fri11/24/23 at 0900, For 1 doseIndications:Arthritis of both knees Given 11/24/2023 9:00 AM CDT 40 mg triamcinolone (KENALOG) 40 mg/mL injection 40 mg 40 mg, intra-articular, One-Time Injection, Starting on Fri11/24/23 at 0900, For 1 doseIndications:Arthritis of both knees Given 11/24/2023 9:00 AM CDT 40 mg documented in this encounter Historical Medications * This list may reflect changes made after this encounter. colestipoL (COLESTID) 1 gram tablet TAKE 1 TABLET BY MOUTH TWICE DAILY. ADMINISTER OTHER ORAL MEDS 1 HOUR BEFORE OR 4-6 HOURS AFTER TAKING COLESTIPOL. 11/14/2023 4 added in this encounter Care Teams Agile Tester Relationship Specialty Start Date End Date Bull Taveras MD [address] [facility] [address] [place] [address] PCP - General Internal Medicine 08/24/20 Nahomi Boyce, RN Registered Nurse Pulmonary Disease 11/12/22 documented as of this encounter
--- OUTSIDE RECORDS SUMMARY | 2024-07-14 22:32 | XMS_ITS | Encounter Summary ---
Author Organization [facility] Address [address] [place] [address] Phone Care Team Providers Care Laboratory Technician Name Role Phone Bull Taveras MD Primary Care Provider [phone] Nahomi Boyce RN Unavailable Unavailabl e Reason for Referral * MRI/CAT/PET Scan (Routine) - Closed Specialty Diagnoses / Procedures Referred By Grecia paulino Referred To Contact Radiology Diagnoses DEANNE (obstructive sleep apnea) Chronic obstructive pulmonary disease, unspecified COPD type (HCC) Atrial fibrillation, unspecified type (HCC) Procedures CT Chest WO Contrast Conner Vale MD [address] [facility] [address] [place] [address] Phone: tel: fax: [address] [address] Referral ID Status Reason Start Date Expiration Date Visits Re quested Visits Authorized [id number] Closed 12/02/2023 12/31/2024 1 1 * Procedure (Routine) - Authorized Specialty Diagnoses / Procedures Referred By Contac t Referred To Contact Diagnoses DEANNE (obstructive sleep apnea) Chronic obstructive pulmonary disease, unspecified COPD type (HCC) Atrial fibrillation, unspecified type (HCC) Procedures Pulmonary Function Test -[facility]- [facility]; Spirometry, Oxygen Assessment Titration Conner Vale MD [address] [place] [address] Phone: tel: fax: Referral ID Status Reason Start Date Expiration Date V isits Requested Visits Authorized [id number] Authorized 12/02/2023 12/31/2024 1 1 Reason for Visit * Reason Comments Follow-up Encounter Details Date Type Department Care Team (Late st Contact Info) Description 12/02/2023 12:30 PM CDT Office Visit [facility] Pulmonary [address] [facility] Medical Office Building [address] [place] [address] Conner Vale MD [address] [place] [address] DEANNE (obstructive sleep apnea) (Primary Dx); Chronic obstructive pulmonary disease, unspecified COPD type (HCC); Atrial fibrillation, unspecified type (HCC) Social History Tobacco Use Types Packs/Day Years [...] on file 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 Gender Identity Not on file Sexual Orientation Straight 03/05/2021 1: 44 PM CDT documented as of this encounter Last Filed Vital Signs Vital Sign Reading Time Taken Comments Blood Pressure 140/69 12/02/2023 12:10 PM CDT Pulse 68 12/02/2023 12:10 PM CDT Temperature 36.4 ??C (97.6 ??F) 12/02/2023 12:10 PM C DT Respiratory Rate - - Oxygen Saturation 100% 12/02/2023 12:10 PM CDT Inhaled Oxygen Concentration - - Weight 89.8 kg (198 lb) 12/02/2023 12:10 PM CDT Height 163.8 cm (5' 4.5 ) 12/02/2023 12:10 PM CD T Body Mass Index 33.46 12/02/2023 12:10 PM CDT documented in this encounter Progress Notes * Conner Vale MD - 12/02/2023 12:00 AM CDT PATIENT NAME: FABIO ROMAN : 1955 MARY: 12/02/2023 PROBLEM LIST: GOLD2B chronic obstructive pulmonary disease Hospitalization for respiratory illness in September 2019. Etiology never elicited. Chronic kidney disease 3. Hypertension. Arthritis in her knees, elbows, and hands. Prior tobacco use. Smoked for 50+ years anywhere from half a pack per day to 1 pack per day. Quit in 2019. Obstructive sleep apnea, compliant with CPAP therapy. Atrial fibrillation. Currently on anticoagulation. Thyroid nodules. Benign on biopsy. 10. COVID-29 September 2022. A. Did not require hospitalization. B. Treated with Molnupiravir. INTERVAL HISTORY: Ms. Roman is a very pleasant 68-year-old female who [facility] for GOLD IIB COPD and lung cancer screening. Since last being seen on 11/22/2022, she denies any hospitalizations, primary care or emergency room visits for any pulmonary complaints. She presents today and denies any shortness of breath at rest. With respect to dyspnea on exertion, she has none with dressing, nonewith showering, and very minimal with housework. She does notice that the weather makes a difference in her breathing and she does more poorly in very hot humid weather. She currently denies any coughing, rhinitis, or postnasal drainage, although she does have occasional symptoms of drainage. She was recently having intermittent GERD and has GI follow-up for this, but as a rule is relatively asymptomatic. She denies any wheezes. She denies any fevers, chills, nausea, or vomiting. She has been having some diarrhea with her GERD and, as mentioned, has GI follow-up. She is not having any night sweats but is having hot flashes. Her weight is stable and her appetite is good. She is extremely compliant with her noninvasive ventilation for obstructive sleep apnea. MEDICATIONS: Albuterol 2 puffs q.i.d. p.r.n., which she is using on average once a day but sometimes more and sometimes less. Atorvastatin. Cetirizine 10 mg p.o. at bedtime. Chlorthalidone. Cholecalciferol. Colestipol. Diltiazem CD. Eliquis. Lisinopril. Magnesium oxide. Potassium gluconate. Anoro Ellipta 62.5/25 one puff daily. PHYSICAL EXAMINATION: Vital Signs: Blood pressure 140/69, heart rate 68 and regular, respiratory rate 14, no distress on room air. Temperature is 97.6. SpO2 is 100% on room air. Weight is 198 pounds, which is up by about 9 pounds since 06/16/2023. BMI is 33.5. Head and Neck: Pupils equal and reactive to light. Extraocular motion intact. There is no rhinitis,sinusitis, pharyngitis, or conjunctivitis. Trachea is central. There is no jugular venous distention. No significant cervical or supraclavicular lymphadenopathy. There is thyroid fullness, which is aknown issue. Respiratory: Normal to percussion bilaterally. Good breath sounds bilaterally without wheezes or crackles. Cardiovascular: No RV heave. Regular rate and rhythm. No murmurs, rubs, or gallops. Abdominal: Overweight. Soft, nontender, nondistended, with normoactive bowel sounds. Extremities: No clubbing, cyanosis, or edema. Good peripheral pulses and perfusion. LABORATORY DATA: Pulmonary function tests: FEV1 is 1.64 L (73% predicted) and FVC is 2.77 L (96% predicted), for an FEV1/FVC ratio of 59%. Flows are decreased at middle lung volumes. On the basis of these pulmonary function tests, there is a mild obstructive ventilatory defect. Compared to pulmonary function dated 11/22/2022, there has been significant interval improvement in the obstructive ventilatory defect. Six-minute walk: On room air at rest, SpO2 is normal and with effort sufficient to increase heart rate from 62 to 89, remains stable. On this basis, there is no requirement for supplemental oxygen either at rest or with exertion. There is no significant change in post-exercise FEV1. Distance walkedwas [address] from 07/01/2023 was again reviewed. This showed no suspicious pulmonary nodules. There is mild upper lobe-predominant emphysema. An old calcified granuloma is noted. There is calcified righthilar and mediastinal lymph nodes. No significant supraclavicular or axillary lymphadenopathy. Multinodular goiter is noted. ASSESSMENT: Ms. Roman is a very pleasant 68-year-old female who is [facility] in the [facility] for Global Initiative for Chronic Obstructive Lung Disease (GOLD) stage IIB chronic obstructive pulmonary disease. Over the last year, she has done well and has not had any exacerbations requiring medical attention.Her pulmonary function today is significantly improved and she has no oxygen requirement. Previous screening CT was nonconcerning. PLAN: COPD. At this point, we will continue with her Anoro 1 puff daily and her albuterol 2 puffs q.i.d. p.r.n. She does not meet the requirements for an inhaled corticosteroid. She knows to call us if heralbuterol use increases significantly. Lung cancer screening. Last CT was performed in June 2023 and showed no concerning nodules. We plan to repeat a low-dose CT in June 2024. This will be ordered today. GERD/diarrhea. Ms. Roman has a follow-up with a GI physician already scheduled. Multinodular goiter. Ms. Roman has had this biopsied twice and continues to follow with her PCP. Return office visit will be in 12 months, or sooner if the need arises. ELECTRONICALLY SIGNED - 12/03/2023 12:07 PM Conner Vale M.D. theatrical dresser /mts cc: VIKKI GAMEZ M.D. [address] [facility] 5th Floor, [address] [place], [place] [id number] BULL TAVERAS M.D. [address] [place] [address] YAZMIN LENNON MD [address] [place] [address] documented in this encounter Plan of Treatment Scheduled Orders Name Type Priority Associated Diagnoses Orde r Schedule Pulmonary Function Test -[facility]- [facility]; Spirometry, Oxygen Assessment Titration PFT Routine DEANNE (obstructive sleep apnea) Chronic obstructive pulmonary disease, unspecified COPD type (HCC) Atrial fibrillation, unspecified type (HCC) Expected: 12/01/2024, Expires: 12/01/2024 Scheduled Procedures Name Priority Associated Diagnoses Date/Ti me COLONOSCOPY Encounter for screening colonoscopy COLONOSCOPY Encounter for screening colonoscopy documented as of this encounter Results * CT Chest WO Contrast (06/23/2024 10:35 AM LIGHT OIL OPERATOR) Anatomical Region Laterality Modality Body N/A Computed Tomogra phy 06/30/2024 3:54 PM LIGHT OIL OPERATOR Narrative 06/30/2024 4:00 PM LIGHT OIL OPERATOR EXAM DESCRIPTION: ?? CT CHEST WO CONTRAST [...] PM T: ??06/30/2024 4:00 PM Report ID: [id number] Reading Location: ??[id number] Procedure Note Tj Patel MD - 06/30/2024 [...] Tj Patel M.D. MM: MM Report ID: [id number] Reading Location: [place] [address] Conner Vale MD IMG CT PROCEDURES Final Result documented in this encounter Visit Diagnoses Diagnosis DEANNE (obstructive sleep apnea)- Primary Obstructive sleep apnea (adult) (pediatric) Chronic obstructive pulmonary disease, unspecified COPD type (HCC) Atrial fibrillation, unspecified type (HCC) DEANNE (obstructive sleep apnea) Obstructive sleep apnea (adult) (pediatric) Chronic obstructive pulmonary disease, unspecified COPD type (HCC) Atrial fibrillation, unspecified type (HCC) documented in this encounter Care Teams Laboratory Technician Relationship Specialty Start Date End Date Bull Taveras MD [address] [address] PCP - General Internal Medicine 08/24/20 Nahomi Boyce RN Registered Nurse Pulmonary Disease 11/12/22 documented as of this encounter
--- OUTSIDE RECORDS SUMMARY | 2024-07-14 22:32 | XMS_ITS | Encounter Summary ---
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 Gender Identity Not on file Sexual Orientation Straight 03/05/2021 1: 44 PM CDT documented as of this encounter Plan of Treatment Scheduled Procedures Name Priority Associated Diagnoses Date/Ti me COLONOSCOPY Encounter for screening colonoscopy COLONOSCOPY Encounter for screening colonoscopy documented as of this encounter Procedures Procedure Name Priority Date/Time Associated Diagnosis Comments XR KNEE BILATERAL AP STANDING Schedule Routine, Read Routine (OP Routine) 10/03/2023 2:00 PM CDT Chronic pain of both knees documented in this encounter Results * XR [...] D: ??10/05/2023 11:21 AM T: Report ID: [id number] Reading Location: ??[id number] Procedure Note Jose Rose MD - 10/05/2023 [...] by Jose Rose M.D. T: Report ID: [id number] Reading Location: [id number] Pooja Chapman HR ASSOCIATE IMG XR PROCEDURES Final Result documented in this encounter Visit Diagnoses Diagnosis Chronic pain of both knees documented in this encounter Care Teams Compliance Spec Relationship Specialty Start Date End Date Bull Taveras MD [address] [address] PCP - General Internal Medicine 08/24/20 Nahomi Boyce RN Registered Nurse Pulmonary Disease 11/12/22 documented as of this encounter
--- OUTSIDE RECORDS SUMMARY | 2024-07-14 22:32 | XMS_ITS | Encounter Summary ---
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 that her chest CT showed no suspicious pulmonary nodules, and did show mild emphysema.Informed her that it can be repeated in 1 yr. Verbalized understanding. AL PSYCHOLOGIST documented in this encounter Plan of Treatment Scheduled Procedures Name Priority Associated Diagnoses Date/Ti me COLONOSCOPY Encounter for screening colonoscopy COLONOSCOPY Encounter for screening colonoscopy documented as of this encounter Visit Diagnoses Not on filedocumented in this encounter Care Teams Field Reviewer Relationship Specialty Start Date End Date Bull Taveras MD [address] [facility] [address] [place] [address] PCP - General Internal Medicine 08/24/20 Nahomi Boyce, RN Registered Nurse Pulmonary Disease 11/12/22 documented as of this encounter
--- OUTSIDE RECORDS SUMMARY | 2024-07-14 22:32 | XMS_ITS | Encounter Summary ---
Author Organization [facility] Address [address] [place] [address] Phone Care Team Providers Care Bear Keeper Name Role Phone Bull Taveras MD Primary Care Provider [phone] Nahomi Boyce RN Unavailable Unavailabl e Encounter Details Date Type Department Care Team (Late st Contact Info) Description 07/05/2024 Telephone [facility] Pulmonary [address] 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 of results. Instructed her to call if she has questions. ----- Message from Conner Vale MD sent at 07/05/2024 9:53 AM DICTAPHONE OPERATOR ----- Isa, Please let Ms. Scott know I reviewed her CT with radiology. No concerning nodules. Goitre stable since 2020. Thanks, as APHONE OPERATOR APHONE OPERATOR documented in this encounter Plan of Treatment Scheduled Procedures Name Priority Associated Diagnoses Date/Ti me COLONOSCOPY Encounter for screening colonoscopy COLONOSCOPY Encounter for screening colonoscopy documented as of this encounter Visit Diagnoses Not on filedocumented in this encounter Care Teams Bear Keeper Relationship Specialty Start Date End Date Bull Taveras MD [address] [address] PCP - General Internal Medicine 08/24/20 Nahomi Boyce RN Registered Nurse Pulmonary Disease 11/12/22 documented as of this encounter
--- OUTSIDE RECORDS SUMMARY | 2024-07-14 22:32 | XMS_ITS | Encounter Summary ---
Author Organization [facility] Address [address] [place] [address] Phone Care Team Providers Care Sack Sorter Name Role Phone Bull Taveras MD Primary Care Provider [phone] Nahomi Boyce RN Unavailable Unavailabl e Reason for Referral * Procedure (Routine) - Closed Specialty Diagnoses / Procedures Referred By Contac t Referred To Contact Pulmonary Disease Diagnoses Chronic obstructive pulmonary disease with acute lower respiratory infection (HCC) COVID Procedures Pulmonary Function Test -[facility]- [facility]; Spirometry, Oxygen Assessment Titration Conner Vale MD [address] [facility] [address] [place] [address] Phone: tel: fax: Referral ID Status Reason Start Date Expiration Date Visits Re quested Visits Authorized [id number] Closed 11/12/2022 12/12/2023 2 2 Reason for Visit * Procedure (Routine) - Closed Specialty Diagnoses / Procedures Referred By Contac t Referred To Contact Pulmonary Disease Diagnoses Chronic obstructive pulmonary disease with acute lower respiratory infection (HCC) COVID Procedures Pulmonary Function Test -[facility]FT [facility]- [facility]; Spirometry, Oxygen Assessment Titration Conner Vale MD [address] [facility] [address] [place] [address] Phone: tel: fax: Referral ID Status Reason Start Date Expiration Date Visits Re quested Visits Authorized [id number] Closed 11/12/2022 12/12/2023 2 2 Encounter Details Date Type Department Care Team (Latest Contact Info) Description 12/02/2023 10:54 AM CDT Hospital Encounter [facility] PFT Lab [address] [facility] Office Building [address] [place] [address] Chronic obstructive pulmonary disease with acute lower respiratory infection (HCC); COVID Social History Tobacco Use Types Packs/Day Years [...] on file 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 Gender Identity Not on file Sexual Orientation [...] Procedure Name Priority Date/Time Associated Diagnosis Comments PULMONARY FUNCTION TEST (PFT) Routine 12/02/2023 11:24 AM CDT Chronic obstructive pulmonary disease with acute lower respiratory infection (HCC) COVID documented in this encounter Results * Pulmonary Function Test - (12/02/2023 11:24 AM CDT) FVC PRE 2.77 L [facility] FVC %PRE PRED 96 % [facility] FEV1 PRE 1.64 L [facility] FEV1 %PRE PRED 73 % [facility] FEV1/FVC PRE 59.2 % [facility] Anatomical Region Laterality Modality PFT 12/02/2023 10:5 6 AM CDT Impressions 12/03/2023 11:04 AM CDT There is a mild obstructive ventilatory defect. Compared with study dated 11/12/2022 , there has been significant interval improvement of the FEV1 and FVC. The attending pulmonary physician certifies a physician presence in the [facility] Suite during the administration of aerosolized bronchodilator. The attending pulmonary physician certifies that he/she has reviewed and interpreted the graphic and numerical data of this pulmonary function study and agrees with the written final report. The lower limit of normal for PO2 and %HbO2 is age dependent. However, the [facility] Pulmonary Function Laboratory defines hypoxemia as a PO2 <55 or a %HbO2 <89. Narrative 12/03/2023 11:04 AM CDT Table formatting from the original result was not included. [facility] Division of Pulmonary & Critical Care Medicine [address] [place] [address]; [place] [address]; [place], [place] ??[address]; [phone] Pulmonary Function Laboratory Pulmonary Stress Test Simple/Oxygen Assessment Patient: Lisa Scott Date: 12/02/2023 : 1955 Ht: 64.5 IN Wt: 198 LBS Time (min) Distance (ft)/ Piña O2 L/M SpO2 HR Nadia* BP FEV1 % Pred Rest: ??RA 98 62 0 117/63 1.61 72 % ? Walk/Bike: 1 ??RA 98 80 0 ? 2 ??RA 97 87 0 ? 3 ??RA 98 84 1 ? 4 ??RA 98 85 1 ? 5 ??RA 99 89 2 ? 6 min 0 sec ??RA 97 88 2 ? Recovery: 1 ??RA 98 72 2 139/76 1.64 73% 3 ?*Nadia rate of perceived exertion (1-10 dyspnea scale) ??Tyler, CHEST 2003; 123:1408 Walk Test Summary: Six Minute Walk Distance: 1235 ft Six-minute Walk Work [distance (m) x body wt (kg)]: 63850 kg.m (normal >60,000kg.m) Oxygen required to maintain SpO2 greater than 90% during six minutes of walkin L/M Comments: Interpretation: Breathing room air, SpO2 is normal at rest and during exercise sufficient to increase pulse from 62 to 89 b/min, SpO2 is stable. On this basis, SpO2 is adequate at rest breathing room air and while walking breathing room air. This level of exercise is associated with no significant change of FEV1. ?? [12/03/2023 11:03:50 AM - BASSEM DIETZ] By signing this report, the attending pulmonary physician certifies that he/she has personally reviewed and interpreted the graphic and numerical data associated with this pulmonary function study and has reviewed and /or edited a preliminary draft report and agrees with the written final report. PFT performed at:->[facility] Adult PFT Lab- [facility] Procedure:->Spirometry Procedure:->Oxygen Assessment Titration Pulmonary Function Test Interpretation SPIROMETRY: There is a decrease in expiratory airflow at all lung volumes. FLOW VOLUME LOOPS: The inspiratory loop is normal. Conner Vale MD PFT ORDERABLES Final Result documented in this encounter Visit Diagnoses Diagnosis Chronic obstructive pulmonary disease with acute lower respiratory infection (HCC) COVID documented in this encounter Additional Health Concerns Infection Onset Date Last Indicated Resolved Time COVID: Suspected 05/14/2024 05/14/2024 05/14/2024 3:46 PM CDT Rhino/Enterovirus 05/14/2024 05/14/2024 05/21/2024 3:05 AM PRESIDENT AND CEO documented as of this encounter Care Teams Sack Sorter Relationship Specialty Start Date End Date Bull Taveras MD [address] [place] [address] [place] [address] PCP - General Internal Medicine 08/24/20 Nahomi Boyce RN Registered Nurse Pulmonary Disease 11/12/22 documented as of this encounter
--- OUTSIDE RECORDS SUMMARY | 2024-07-14 22:33 | XMS_ITS | Encounter Summary ---
Author Organization [facility] Address [address] [place] [address] Phone Care Team Providers Care Dishtank Operator Name Role Phone Bull Taveras MD Primary Care Provider [phone] Nahomi Boyce RN Unavailable Unavailabl e Encounter Details Date Type Department Care Team (Late st Contact Info) Description 11/27/2022 Telephone [facility] Pulmonary [address] [facility] 8th [place] [address] [place] [address] Nahomi Boyce RN Social History [...] on file Legal Sex Female 6:46 AM BEND UP Gender Identity Not on file Sexual Orientation Straight 03/05/2021 1: 44 PM CDT documented as of this encounter Miscellaneous Notes * Telephone Encounter - Nahomi Boyce RN - 11/27/2022 2:04 PM CDT Prescription for Qvar 40mcg. 2 puffs bid x14d, sent to [facility] pharmacy as ordered. Left message informing pt. of this, and instructed her to rinse her mouth or brush her teeth after using. documented in this encounter Plan of Treatment Scheduled Procedures Name Priority Associated Diagnoses Date/Ti me COLONOSCOPY Encounter for screening colonoscopy COLONOSCOPY Encounter for screening colonoscopy documented as of this encounter Visit Diagnoses Not on filedocumented in this encounter Care Teams Dishtank Operator Relationship Specialty Start Date End Date Bull Taveras MD [address] [address] PCP - General Internal Medicine 08/24/20 Nahomi Boyce, RN Registered Nurse Pulmonary Disease 11/12/22 documented as of this encounter
--- OUTSIDE RECORDS SUMMARY | 2024-07-14 22:33 | XMS_ITS | Encounter Summary ---
Author Organization [facility] Address [address] [place] [address] Phone Care Team Providers Care Lavatory Attendant Name Role Phone Bull Taveras MD Primary Care Provider [phone] Encounter Details Date Type Department Care Team (Late st Contact Info) Description 10/07/[address] 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 * Telephone Encounter - Kalia Mcconnell MD - 10/10/2022 12:32 AM CDT That should be fine! Thanks! p * Telephone Encounter - Sonya Bills RN - 10/07/2022 2:30 PM CDT Ok to wait until December as long as she is feeling well? * Telephone Encounter - Noemi Huff - 10/07/2022 8:35 AM CDT Enedina Pt calling to reschedule 10/08 appt due to COVID. Has been rescheduled for next avail 12/31. Please contact pt if they need to be seen sooner. documented in this encounter Plan of Treatment Scheduled Procedures Name Priority Associated Diagnoses Date/Ti me COLONOSCOPY Encounter for screening colonoscopy COLONOSCOPY Encounter for screening colonoscopy documented as of this encounter Visit Diagnoses Not on filedocumented in this encounter Care Teams Lavatory Attendant Relationship Specialty Start Date End Date Bull Taveras MD [address] [place] [address] PCP - General Internal Medicine 08/24/20 documented as of this encounter
--- OUTSIDE RECORDS SUMMARY | 2024-07-14 22:33 | XMS_ITS | Encounter Summary ---
Author Organization [facility] Address [address] [place] [address] Phone Care Team Providers Care Investor Relations Specialist Name Role Phone Bull Taveras MD Primary Care Provider [phone] Reason for Referral * Consultation (Routine) - Closed Specialty Diagnoses / Procedures Referred By Contac t Referred To Contact Neurology Diagnoses DEANNE (obstructive sleep apnea) Bull Taveras MD [address] [place] [address] [address] [place] [address] Phone: tel: fax: Sonia Conway MD PhD [address] [facility] NEUROLOGY SLEEP [facility] [address] [place] [address] Phone: tel: fax: Referral ID Status Reason Start Date Expiration Date V isits Requested Visits Authorized [id number] Closed Specialty Services Required 09/26/2022 10/26/2023 1 1 Question Answer Please select the performing region: [facility] (All Locations) [167] # of visits: 1 * (Routine) - Closed Specialty Diagnoses / Procedures Referred By Contac t Referred To Contact Diagnoses DEANNE (obstructive sleep apnea) Procedures Miscellaneous DME Sonia Conway MD PhD [address] [place] [address] Phone: tel: fax: Referral ID Status Reason Start Date Expiration Date Visits Re quested Visits Authorized [id number] Closed 09/26/2022 10/26/2023 1 1 Reason for Visit * Consultation (Routine) - Closed Specialty Diagnoses / Procedures Referred By Contac t Referred To Contact Neurology Diagnoses DEANNE (obstructive sleep apnea) Bull Taveras MD [address] [facility] [address] [place] [address] Phone: tel: fax: Sonia Conway MD PhD [address] [facility] NEUROLOGY SLEEP MED, [facility] [address] [place] [address] Phone: tel: fax: Referral ID Status Reason Start Date Expiration Date V isits Requested Visits Authorized [id number] Closed Specialty Services Required 09/26/2022 10/26/2023 1 1 Encounter Details Date Type Department Care Team (Late st Contact Info) Description 09/26/2022 10:30 AM CDT Telemedicine [facility] Neuro Sleep [address] [place] [address] 6th Floor [address] [place] [id number] Sonia Conway MD PhD [address] [place] [address] DEANNE (obstructive sleep apnea) (Primary Dx) Social History Tobacco Use Types Packs/Day Years Used Date Smoking Tobacco: Former Cigarettes Q uit: 12/13/2019 Smokeless Tobacco: Never Comments Unknown Sex and Gender Information Value Date Recorded Sex Assigned at Not on file 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 Regular supplies replacement Discussed avoidance of driving while sleepy Follow up in 1 year. documented in this encounter Progress Notes * Sonia Conway MD PhD - 09/26/2022 10:30 AM CDT This was a telemedicine visit with Lisa Roman alone which took place via Real-time video connection ([employer], [employer] or similar). During the visit, I (the attending physician) was located at home and the patient was located at home in [place]. I was with the patient during the telehealth sessionbeginning at 10:39 and ending at 11:02. In addition to the time spent during the session with the patient, I spent 5 minutes on the day of the visit prior to the visit and after the visit in direct care of the patient. Total time spend on encounter on the day of the visit by the ATTENDING PHYSICIAN: 27 minutes. (Thistime does not include time spent in any separately reportable services.) The patient (or parent/guardian if relevant) has been informed that the visit may not be secure andacknowledged the information. The option of participating in a telephone or video visit during the COVID-19 public [facility] emergency was explained to them. After being given an opportunity to ask questions about and discuss this type of visit, the patient verbally consented to proceeding with the telephone/video visit. The patient understands that this service replaces an office visit. Patient Name: LISA ROMAN Medical Record Number (MRN): [id number] Date of (): 1955 Encounter Date: 09/26/2022 [facility] Chief Complaint Lisa Roman is a 67 y.o. female seen today for consultation regarding concern for sleep apnea. Referring provider: Conner Vale MD HPI 67 y.o. patient with COPD and dyspnea, hypertension, CKD III, and paroxsymal afib who presents for DEANNE follow up. She initially presented in 02/2021 with morning headaches, daytime sleepiness with elevated (>10)Levasy Sleepiness Scale, nocturia and poor sleep quality. She has had chronic pain from possible PMR and has been seen by transportation inspector. She fetl that her sleep is disrupted from pain. She had beenstarted on prednisone. She thinks she has gained 50 lbs in the last year and a half since starting. PSG 06/21/2021 (wt 202) revealed mild/moderate DEANNE with 4% AHI of 14.4, 3% AHI of 18.2, O2 leonarda 79% (16.2 minutes <89%). CPAP titration during that study revealed that a pressure of 10 cm H2O wasoptimal with a few TECA. She was ordered AutoPAP 8-12 cm H2O. At her last visit in 09/2021 she had excellent compliance with APAP 8-12 and this was continued without change along with a mask fitting appt recommended. At the mask fitting she took the dreamwear with small cushion and pillows home to try. Today: She reports that since her last visit she has not had anymore Afib and continues on Eliquis and diltiazem. No new medical issues. In regards to PAP, she loves it! She feels her sleep quality is much better and she feels much better rested in the morning. She is using the Dreamwear with the nasal pillows which stays on her head better (uses a ponytail to help). Minimal issues with leak. No issues with dry mouth/nose. Unless she forgets to put water in. She does use the humidifier with distilled water. No issues replacing supplies and does this regularly. ([facility]) Weight has lost 10 pounds since the study (192 today she reports). She is working on weight loss. Compliance Data: Compliance download for last 30 days 08/27-09/25/2022 Device Settings- 8-12 cmH2O Days with Device Usage- 97% Median Usage on Days Used- 7 hours 54 min % Usage >=4 hours- 93% Median Pressure- 9.7 95% Pressure- 11.5 Max pressure- 11.8 Median leak- 8 95% leak- 28 Average AHI- 2.3 On most days , bedtime is 9:30-11PM, rise time is 0630 but she doesn't get out of bed until 0730, and she reads for 20-30 minutes then falls asleep in 2 minutes. She wakes up 2-4 times during the night, but only briefly. No longer having to get up for restroom visits except occasionally. She no longer takes naps! ESS is 08/06, significantly down from 07/06 [...] Allergen Reactions Novocain [Procaine] Anaphylaxis Heart races [place] Nut Itching and Swelling Cinnamon Flushing (skin) Current Outpatient Medications Medication Sig Dispense Refill albuterol HFA (Ventolin HFA) 90 mcg/actuation inhaler Inhale 2 puffs every 4 (four) hours as neededfor wheezing or shortness of breath 18 g 5 atorvastatin (LIPITOR) 10 mg tablet Take 1 tablet (10 mg total) by mouth nightly 30 tablet 9 cetirizine (ZyrTEC) 10 mg tablet Take 10 mg by mouth daily [employer] Brand Allergy chlorthalidone 25 mg tablet Take 1/2 (one-half) tablet by mouth once daily 15 tablet 7 cholecalciferol (VITAMIN D-3) 25 mcg (1,000 unit) tablet Take 1 tablet (1,000 Units total) by mouthdaily 30 tablet 11 diltiazem (TIAZAC) 120 mg 24 hr capsule Take 1 capsule (120 mg total) by mouth every morning 90 capsule 3 Eliquis 5 mg tablet Take 1 tablet (5 mg total) by mouth every 12 (twelve) hours 180 tablet 3 lisinopriL (PRINIVIL,ZESTRIL) 10 mg tablet Take 1 tablet (10 mg total) by mouth daily 90 tablet 3 lysine 500 mg tablet 500 mg magnesium oxide 400 mg magnesium capsule Take by mouth potassium gluconate 595 mg (99 mg) tablet 595 mg umeclidinium-vilanteroL (Anoro Ellipta) 62.5-25 mcg/actuation blister with device Inhale 1 puff daily 60 each 5 No current facility-administered medications for this visit. Patient Active Problem List Diagnosis Essential hypertension Polyarthritis Thyroid nodule Stage 3a chronic kidney disease (HCC) Shortness of breath DEANNE (obstructive sleep apnea) DERICK (renal osteodystrophy) Other emphysema (CMS/HCC) (HCC) Hyperlipidemia Atrial fibrillation (CMS/HCC) (HCC) Past [...] due to video visit (no telepresenter present) Patient reported weight: Wt 192 Assessment Assessment No diagnosis found. 67 y.o. female with severe COPD and dyspnea, hypertension, CKD III, and p Afib who follows up for DEANNE currently treated with APAP 8-12 cm H2O. She is doing well with this treatment without significant problems tolerating the equipment. She has had symptomatic improvement in snoring, fatigue and difficulty sleeping and expressed commitment to continuing treatment. We discussed how untreated DEANNE can cause unrefreshing sleep and excessive daytime sleepiness, as well as how it contributes over the retirement to cardiovascular risk, recalcitrant hypertension, and stroke risk. I'm very pleased with how well she is doing with PAP and no changes need ot be made today. Plan Continue APAP 8-12 cm H2O using whenever sleeping. Regular supplies replacement Discussed avoidance of driving while sleepy Follow up in 1 year. No follow-ups on file. No orders of the defined types were placed in this encounter. Thank you for allowing me to participate in the care of your patient. If you have any questions, feel free to contact me. Sincerely, Sonia Conway M.D., Ph.D., FAAN, FAA Professor of Neurology Diplomate, [place] [employer] Psychiatry and Neurology with added Qualifications in Sleep Medicine Portions of this note were generated using voice recognition technology and may be subject to thread grinder tool error. documented in this encounter Miscellaneous Notes * Addendum Note - Jackie Ross - 09/26/2022 10:30 AM CDTAddended by: JACKIE ROSS on: 09/26/2022 12:08 PM Modules accepted: Orders documented in this encounter Plan of Treatment Scheduled Procedures Name Priority Associated Diagnoses Date/Ti me COLONOSCOPY Encounter for screening colonoscopy COLONOSCOPY Encounter for screening colonoscopy Scheduled Referrals Name Type Priority Associated Diagnoses Order Schedule Ambulatory referral to Neurology Outpatient Referral Routine DEANNE (obstructive sleep apnea) Expected: 10/10/2022 (Approximate), Expires: 09/27/2023 documented as of this encounter Visit Diagnoses Diagnosis DEANNE (obstructive sleep apnea)- Primary Obstructive sleep apnea (adult) (pediatric) documented in this encounter Orders General Supply Count Last Ordered Date First Or dered Date MISCELLANEOUS DME 1 09/26/2022 documented in this encounter Care Teams Investor Relations Specialist Relationship Specialty Start Date End Date Bull Taveras MD [address] [address] PCP - General Internal Medicine 08/24/20 documented as of this encounter
--- OUTSIDE RECORDS SUMMARY | 2024-07-14 22:33 | XMS_ITS | Encounter Summary ---
Author Organization [facility] Address [address] [place] [address] Phone Care Team Providers Care Spanish Instructor Name Role Phone Bull Taveras MD Primary Care Provider [phone] Nahomi Boyce RN Unavailable Unavailabl e Reason for Visit * Consultation (Routine) - Authorized Specialty Diagnoses / Procedures Referred By Grecia paulino Referred To Contact Nephrology Diagnoses Stage 3a chronic kidney disease (HCC) Essential hypertension Hyperlipidemia, unspecified hyperlipidemia type Stage 3 chronic kidney disease, unspecified whether stage 3a or 3b CKD (HCC) Rafael Allred MD [address] [place] [address] Phone: tel: fax: [facility] (All Locations) Referral ID Status Reason Start Date Expiration Date Visits Requested Visits Authorized [id number] Authorized Specialty Services Required 02/18/2022 03/20/2025 40 40 Encounter Details Date Type Department Care Team (Late st Contact Info) Description 03/04/2023 10:00 AM CDT Office Visit [facility] Nephrology [address] [facility] 5th [place] [address] [place] [address] Rafael Allred MD [address] [facility] [address] [place] [address] Stage 3a chronic kidney disease (HCC) (Primary Dx); DERICK (renal osteodystrophy); Essential hypertension; Hyperlipidemia, unspecified hyperlipidemia type Social History Tobacco [...] on file 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 Gender Identity Not on file Sexual Orientation Straight 03/05/2021 1: 44 PM CDT documented as of this encounter Last Filed Vital Signs Vital Sign Reading Time Taken Comments Blood Pressure 144/82 03/04/2023 10:01 AM CDT Pulse 83 03/04/2023 10:01 AM CDT Temperature 36.4 ??C (97.5 ??F) 03/04/2023 10:01 AM C DT Respiratory Rate - - Oxygen Saturation - - Inhaled Oxygen Concentration - - Weight 86.7 kg (191 lb 3.2 oz) 03/04/2023 10:01 AM CDT Height 162.6 cm (5' 4 ) 03/04/2023 10:01 AM CDT Body Mass Index 32.82 03/04/2023 10:01 AM CDT documented in this encounter Patient Instructions * Patient Instructions* Rafael Allrde MD - 03/04/2023 10:00 AM CDT YOUR kidney function is about 40%. This is stable for at least 2+ years. No changes in your medications. See you in 1 year. documented in this encounter Ordered Prescriptions Prescription Sig Dispense Quantity Refills Last Filled Start Date End Date chlorthalidone (HYGROTON) 25 mg tabletIndications: Essential hypertension Take 0.5 tablets (12.5 mg total) by mouth daily 45 tablet 3 03/04/2023 4 documented in this encounter Progress Notes * Rafael Allred MD - 03/04/2023 10:00 AM CDT PATIENT NAME: Lisa Scott : 1955 03/04/2023 CHIEF COMPLAINT: No chief complaint on file. HISTORY OF PRESENT ILLNESS: This is a 68 y.o. female who has been referred for consultation of chronic kidney disease, stage 3 Secondary to Unknown Etiology by Dr. Taveras. Since the last visit, the patient reports she is doing well. She is in cardiopulmonary rehab for exercise. She gets BP checks 2x/week and this is SBP <120. She had Afib in September 2021 and is back in sinus rhythm now. She is still on eliquis. She denies heavy NSAID, renal stones, UTI's. She is now using CPAP regularly. PROBLEM LIST: Patient Active Problem List Diagnosis Essential hypertension Polyarthritis Thyroid nodule Stage 3a chronic kidney disease (HCC) Shortness of breath DEANNE (obstructive sleep apnea) DERICK (renal osteodystrophy) Chronic obstructive pulmonary disease (HCC) Hyperlipidemia Atrial fibrillation (CMS/HCC) (HCC) She has COPD - emphysema. Smoked until 2019. ALLERGIES: Allergies Allergen Reactions Novocain [Procaine] Anaphylaxis Heart races [place] Nut Itching and Swelling Cinnamon Flushing (skin) CURRENT MEDICATIONS: Current Outpatient Medications: albuterol HFA (PROVENTIL HFA,VENTOLIN HFA,PROAIR HFA) 90 mcg/actuation inhaler, Inhale 2 puffs every 6 (six) hours as needed for wheezing, Disp: 1 each, Rfl: 0 atorvastatin (LIPITOR) 10 mg tablet, Take 1 tablet (10 mg total) by mouth nightly, Disp: 30 tablet,Rfl: 9 cetirizine (ZyrTEC) 10 mg tablet, Take 1 tablet (10 mg total) by mouth daily [employer] Brand Allergy,Disp: , Rfl: dilTIAZem CD/XR/XT (DILT-XR) 120 mg 24 hr capsule, Take 1 capsule (120 mg total) by mouth daily, Disp: 90 capsule, Rfl: 3 Eliquis 5 mg tablet, TAKE 1 TABLET BY MOUTH EVERY 12 HOURS, Disp: 180 tablet, Rfl: 0 lisinopriL (PRINIVIL,ZESTRIL) 10 mg tablet, Take 1 tablet (10 mg total) by mouth daily, Disp: 90 tablet, Rfl: 3 lysine 500 mg tablet, 1 tablet (500 mg total), Disp: , Rfl: magnesium oxide 400 mg magnesium capsule, Take by mouth, Disp: , Rfl: potassium gluconate 595 mg (99 mg) tablet, 1 tablet (595 mg total), Disp: , Rfl: umeclidinium-vilanteroL (Anoro Ellipta) 62.5-25 mcg/actuation blister with device, Inhale 1 puff bymouth once daily, Disp: 60 each, Rfl: 5 chlorthalidone (HYGROTON) 25 mg tablet, Take 0.5 tablets (12.5 mg total) by mouth daily, Disp: 45 tablet, Rfl: 3 cholecalciferol (VITAMIN D-3) 25 mcg (1,000 unit) tablet, Take 1 tablet (1,000 Units total) by mouth daily, Disp: 30 tablet, Rfl: 11 PHYSICAL EXAM: Vitals BP 144/82 (BP Location: Right arm, Patient Position: Sitting) Pulse 83 Temp 36.4 ??C (97.5 ??F) (Oral) Ht 162.6 cm (5' 4 ) Wt 86.7 kg (191 lb 3.2 oz) BMI 32.82 kg/m?? GENERAL: Alert, NAD, overweight EYES: Sclerae white, EOMI HEENT: Atraumatic, moist mucous membranes. MUSCULOSKELETAL: Mild Kyphosis high thoracici HEART: Regular rate and rhythm, Normal S1, S2, No murmurs, rubs or gallops.\ LUNGS: Clear to auscultation bilaterally. ABDOMEN: Soft, nontender, No HSM. EXTREMITIES: no edema SKIN: Intact, no rashes. NEUROLOGIC: Moving all extremities, No focal deficits. LABS: Recent Results (from the past 1008 hour(s)) Renal function panel Collection Time: 02/17/23 9:40 AM Result Value Ref Range Glucose 106 (H) 70 - 99 mg/dL BUN 25 8 - 27 mg/dL Creatinine, Serum 1.48 (H) 0.57 - 1.00 mg/dL eGFR 38 (L) >59 mL/min/1.73 BUN/creat ratio 17 12 - 28 Sodium 138 134 - 144 mmol/L Potassium, sr 4.6 3.5 - 5.2 mmol/L Chloride 103 96 - 106 mmol/L CO2 23 20 - 29 mmol/L Calcium 9.7 8.7 - 10.3 mg/dL Phosphorus, sr 3.5 3.0 - 4.3 mg/dL Albumin 4.4 3.9 - 4.9 g/dL CBC with auto differential Collection Time: 02/17/23 9:40 AM Result Value Ref Range WBC 7.0 3.4 - 10.8 x10E3/uL RBC 4.36 3.77 - 5.28 x10E6/uL Hgb 12.7 11.1 - 15.9 g/dL Hct 38.4 34.0 - 46.6 % MCV 88 79 - 97 fL MCH 29.1 26.6 - 33.0 pg MCHC 33.1 31.5 - 35.7 g/dL Rdw 12.7 11.7 - 15.4 % Platelets 324 150 - 450 x10E3/uL Neutrophils 53 Not Estab. % Lymphs 30 Not Estab. % Monocytes 9 Not Estab. % Eosinophils 6 Not Estab. % Basophil pct 2 Not Estab. % Neutrophil abs 3.7 1.4 - 7.0 x10E3/uL Lymphs (Absolute) 2.1 0.7 - 3.1 x10E3/uL Monocyte abs 0.6 0.1 - 0.9 x10E3/uL Eosinophils, abs 0.4 0.0 - 0.4 x10E3/uL Basophils, abs 0.1 0.0 - 0.2 x10E3/uL Immature Granulocytes 0 Not Estab. % Immature Grans (Abs) 0.0 0.0 - 0.1 x10E3/uL Urinalysis reflex to microscopic Collection Time: 02/17/23 9:40 AM Result Value Ref Range Specific [place] 1.011 1.005 - 1.030 pH, ur 7.0 5.0 - 7.5 Color, ur Yellow Yellow Appearance, ur Clear Clear Leukocyte esterase, ur Negative Negative Protein, ur Negative Negative/Trace Glucose, ur Negative Negative Ketones, ur Negative Negative Blood, ur Negative Negative Bilirubin, ur Negative Negative Urobilinogen, quant, ur 0.2 0.2 - 1.0 mg/dL Nitrites, ur Negative Negative Urinalysis, microscopic exam Comment IMAGING: Complete Renal Ultrasound 6/4/21 EXAMINATION: COMPLETE RENAL SONOGRAM HISTORY: Chronic kidney disease with elevated creatinine COMPARISON: None 2020: FINDINGS: Kidneys: The echogenicity of both kidneys is normal. The kidneys are normal in size. The right kidney measures 9.8 cm in length, and the left, 9.9 cm in length. There is no hydronephrosis in either kidney. There are no renal calculi visualized. Bladder: The urinary bladder is normalIMPRESSION: Normal kidneys. No hydronephrosis. OUTSIDE RECORD Review We are getting those from Dr. Alvarez's office. ASSESSMENT AND PLAN: Diagnoses and all orders for this visit: Stage 3a chronic kidney disease (HCC) - Renal function panel; Future - PTH; Future - Albumin Creatinine Ratio, Urine; Future - CBC with auto differential; Future - Renal function panel - PTH - Albumin Creatinine Ratio, Urine - CBC with auto differential DERICK (renal osteodystrophy) - Renal function panel; Future - PTH; Future - Renal function panel - PTH Essential hypertension - chlorthalidone (HYGROTON) 25 mg tablet; Take 0.5 tablets (12.5 mg total) by mouth daily - Albumin Creatinine Ratio, Urine; Future - Albumin Creatinine Ratio, Urine Hyperlipidemia, unspecified hyperlipidemia type 1.CKD, stage 3B: The patient has no clear reason for a decrease in renal function except prior HTN.Her Creatinine Clearance was 52 ml/min. Most recent eGFR is 38%. Renal US is normal. She has not had an appreciable change in her function. She has no albuminuria, so increasing lisinopril is not necessary. We added Chlorthalidone for better BP control previously. We can consider SGLT2i later. 2. Hypertension: This is under excellent control. Added chlorthalidone previously and is on diltiazem now also. We will continue the present regimen. 3. DERICK: Continue vitamin D. Her PTH remains normal. 4. Increased CV risk from CKD: She should continue atorvastatin 10 mg nightly. DISPOSITION: The patient will follow-up 12 month. Rafael Allred MD Nephrology Attending documented in this encounter Miscellaneous Notes * Addendum Note - Wily Bosch, EMT - 03/04/2023 10:00 AM CDTAddended by: WILY BOSCH on: 03/02/2024 02:53 PM Modules accepted: Orders documented in this encounter Plan of Treatment Scheduled Procedures Name Priority Associated Diagnoses Date/Ti me COLONOSCOPY Encounter for screening colonoscopy COLONOSCOPY Encounter for screening colonoscopy documented as of this encounter Visit Diagnoses Diagnosis Stage 3a chronic kidney disease (HCC)- Primary DERICK (renal osteodystrophy) Renal osteodystrophy Essential hypertension Unspecified essential hypertension Hyperlipidemia, unspecified hyperlipidemia type documented in this encounter Discontinued Medications Medication Sig Discontinue Reason Start Date End Da te chlorthalidone 25 mg tabletIndications:Jethroenti al hypertension Take 1/2 (one-half) tablet by mouth once daily Reorder 08/02/2022 03/04/2023 documented as of this encounter Care Teams Spanish Instructor Relationship Specialty Start Date End Date Bull Taveras MD [address] [address] PCP - General Internal Medicine 08/24/20 Nahomi Boyce RN Registered Nurse Pulmonary Disease 11/12/22 documented as of this encounter
--- OUTSIDE RECORDS SUMMARY | 2024-07-14 22:33 | XMS_ITS | Encounter Summary ---
Author Organization [facility] Address [address] [place] [address] Phone Care Team Providers Care Packing Machine Pilot Can Router Name Role Phone Bull Taveras MD Primary Care Provider [phone] Nahomi Boyce RN Unavailable Unavailabl e Reason for Visit * Reason Comments Pain Encounter Details Date Type Department Care Team (Late st Contact Info) Description 06/16/2023 1:00 PM CHECK WRITER Office Visit [facility] [place] [facility] - [facility] [id number] [place] [phone] [place] [address] [place] [address] Right wrist pain (Primary Dx); Contusion of right wrist, initial encounter; Carpal tunnel syndrome of right wrist Social History Tobacco Use Types Packs/Day Years [...] on file Legal Sex Female 6:46 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 Gender Identity Not on file Sexual Orientation Straight 03/05/2021 1: 44 PM CDT documented as of this encounter Last Filed Vital Signs Vital Sign Reading Time Taken Comments Blood Pressure - - Pulse - - Temperature - - Respiratory Rate - - Oxygen Saturation - - Inhaled Oxygen Concentration - - Weight 85.7 kg (189 lb) 06/16/2023 12:51 PM CHECK WRITER Height 163.8 cm (5' 4.5 ) 06/16/2023 12:51 PM CS T Body Mass Index 31.94 06/16/2023 12:51 PM CHECK WRITER documented in this encounter Patient Instructions * Patient Instructions* Patti Abebe PA - 06/16/2023 1:00 PM CHECK WRITER Images from the original note were not included. Lisa Scott 1955 1. Right wrist pain 2. Contusion of right wrist, initial encounter 3. Carpal tunnel syndrome of right wrist RECOMMENDATIONS: Ice and elevation for swelling/pain. Recommend 15-20 minutes 3 times a day or as needed. Low heat as needed for muscular soreness/tightness Immobilization: Wear wrist brace with activity as needed. Wear at night. May remove for hygiene purposes. Restrictions: She will modify activities as symptoms Follow up: As needed. The recommendations you received in the [facility] was an initiation of care for your urgent problem. It is important that you follow the treatment plan as outlined with you at your visit. If your symptoms should worsen, you can reach your Provider through the office at during regular business hours M-F from 8:00 a.m. to 4:30 p.m. If your symptoms worsen and you are unable to reach anyone at either of the numbers provided, you should seek further medical attention in the ER or with your primary care provider. Lanette Abebe PA-C [facility] Department of Orthopaedic Surgery K WRITER documented in this encounter Progress Notes * Patti Abebe PA - 06/16/2023 1:00 PM CST Images from the original note were not included. [facility] CHIEF COMPLAINT Right wrist pain REFERRING PROVIDER Bull Taveras MD HISTORY OF PRESENT ILLNESS Lisa Sctot is a 68 y.o. who presents to the orthopedic injury clinic with the complaint of right wrist pain which began on Friday when she tripped on a power cord at a [employer]. She fell onto her front with her hands tucked into her chest. She fell on the volar aspect of her right wrist. Her pain was worse yesterday, however she woke up this morning and her pain had improved quite abit. However now she is noticing numb and tingly feelings into her 1st 3 fingers. She is unable to take anti-inflammatories or Tylenol. She is established with Dr. Lopez for her thumb. PAST MEDICAL HISTORY She has a past medical history of Arthritis, Atrial fibrillation (CMS/HCC) (HCC), Chronic kidney disease, Hypertension, Obesity, and Thyroid disease. PAST SURGICAL HISTORY She has a past surgical history that includes Repair knee ligament. INITIAL REVIEW OF MEDICATIONS Medication list reviewed. She has a current medication list which includes the following prescription(s): albuterol hfa, atorvastatin, cetirizine, chlorthalidone, cholecalciferol, diltiazem cd/xr/xt,eliquis, lisinopril, lysine, magnesium oxide, potassium gluconate, and anoro ellipta. ALLERGIES She is allergic to novocain [procaine], pine nut, and cinnamon. SOCIAL HISTORY She reports that she quit smoking about 3 years ago. Her smoking use included cigarettes. She has never used smokeless tobacco. She reports current drug use. Drug: Alcohol. No alcohol history on file. REVIEW OF SYSTEMS Constitutional: No recent fever, chills, unexplained illnesses or weight loss PHYSICAL EXAMINATION CONSTITUTIONAL/GENERAL: Well-appearing, in no apparent distress. Height: 163.8 cm (5' 4.5 ) Weight:85.7 kg (189 lb) PSYCHIATRIC: Alert, cooperative, appropriate mood and affect SKIN: Skin intact. MUSCULOSKELETAL: Exam limited to right wrist: Inspection: Mild swelling throughout wrists. No significant bruising or redness Palpation: No tenderness to palpation. negative TTP over collateral ligaments of the thumb. negative snuffbox tenderness on palpation. negative TTP over DRUJ. ROM: Full flexion and extension Strength: 5/5 in wrist Flexion, extension, supination at the wrist, pronation at the wrist; Full finger flexion and extension grossly intact Sensation: Intact to light touch. Able to make thumb's up, a-ok, and resist ulnar deviation. Vascular: 2+ distal radial pulse. Brisk capillary refill in the thumb. Special Tests: Phalen???s: positive Tinel???s: negative Median nerve compression test: positive NEUROLOGICAL: Sensation is intact to light touch to the affected extremity VASCULAR: Brisk capillary refill is intact distally to the affect extremity REVIEW OF IMAGING/STUDIES X-rays of the right wrist are taken today. I have personally interpreted and reviewed the x-rays with the patient at the visit. There is no acute fracture, dislocation, or osseous abnormality. She has degenerative changes notedthroughout the wrist and CMC joint. IMPRESSION/DIAGNOSIS Contusion of right wrist Carpal tunnel syndrome TREATMENT/PLAN The symptoms, physical exam and x-ray findings are reviewed and consistent with the above impression. Recommendations: Fortunately her pain has improved quite a bit since her injury. She has no pain today with palpation or range of motion. She is however experiencing some transient carpal tunnel syndrome due to her swelling. She has a brace at home which he will continue to wear with activity and at rest until her symptoms improve. She will continue with ice and elevation. She will modify her activities to her symptoms. She will follow up as needed. Should she have worsening pain, she will call for an appointment. All questions are answered. Recommendations discussed and patient and all are in agreement with treatment plan. After Visit Summary given with instructions of care and any restrictions that are advised. If any concerns regarding care or if symptoms worsen/do not improve, they will contact my office. Lanette Abebe PA-C [facility] Department of Orthopaedic Surgery Working in collaboration with Roney Salgado M.D. Portions of this note were dictated using M*Modal Fluency Direct speech recognition software. Please excuse any gin operator errors. 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 Dictated by: Alex Rai MD The radiology attending physician has personally reviewed this study, and had reviewed and/or edited this written report and agrees with it. Electronically signed by: Ren Magaña M.D. Narrative 06/16/2023 5:16 PM CHECK WRITER EXAMINATION: XR WRIST RIGHT 3 OR MORE VIEWS HISTORY: ??Right wrist pain FINDINGS: 4 views of the right wrist are interpreted in comparison to radiographs 05/17/2022 No acute fracture or subluxation. ??There is mild 1st carpometacarpal and metacarpophalangeal joint osteoarthritis. ??No acute fracture. Soft tissues are unremarkable. Procedure Note Ren Magaña MD - 06/16/2023 EXAMINATION: XR WRIST RIGHT 3 OR MORE VIEWS HISTORY: Right wrist pain FINDINGS: 4 views of the right wrist are interpreted in comparison to radiographs 05/17/2022 No acute fracture or subluxation. There is mild 1st carpometacarpal and metacarpophalangeal joint osteoarthritis. No acute fracture. Soft tissues are unremarkable. IMPRESSION: 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 Dictated by: Alex Rai MD The radiology attending physician has personally reviewed this study, and had reviewed and/or edited this written report and agrees with it. Electronically signed by: Ren Magaña M.D. Patti FIGUEROA IMG XR PROCEDURES F inal Result documented in this encounter Visit Diagnoses Diagnosis Right wrist pain- Primary Pain in joint, forearm Contusion of right wrist, initial encounter Carpal tunnel syndrome of right wrist Right wrist pain Pain in joint, forearm documented in this encounter Care Teams Packing Machine Pilot Can Router Relationship Specialty Start Date End Date Bull Taveras MD [address] [facility] [address] [place] [address] PCP - General Internal Medicine 08/24/20 Nahomi Boyce, RN Registered Nurse Pulmonary Disease 11/12/22 documented as of this encounter
--- OUTSIDE RECORDS SUMMARY | 2024-07-14 22:33 | XMS_ITS | Encounter Summary ---
Author Organization [facility] Address [address] [place] [address] Phone Care Team Providers Care Analysis Consultant Name Role Phone Bull Taveras MD Primary Care Provider [phone] Nahomi Boyce RN Unavailable Unavailabl e Encounter Details Date Type Department Care Team (Late st Contact Info) Description 12/04/2022 Orders Only [facility] [address] [facility] 8th [place] [address] [place] [address] Conner Vale MD [address] [place] [address] Social History Tobacco Use Types [...] on file 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 Vale order. documented in this encounter Plan of Treatment Scheduled Procedures Name Priority Associated Diagnoses Date/Ti hi COLONOSCOPY Encounter for screening colonoscopy COLONOSCOPY Encounter for screening colonoscopy documented as of this encounter Visit Diagnoses Not on filedocumented in this encounter Discontinued Medications Medication Sig Discontinue Reason Start Date End Da te albuterol HFA (Ventolin HFA) 90 mcg/actuation inhaler Inhale 2 puffs every 4 (four) hours as needed for wheezing or shortness of breath Duplicate order 08/28/2022 12/04/2022 documented as of this encounter Care Teams Analysis Consultant Relationship Specialty Start Date End Date Bull Taveras MD [address] [facility] [address] [place] [address] PCP - General Internal Medicine 08/24/20 Nahomi Boyce RN Registered Nurse Pulmonary Disease 11/12/22 documented as of this encounter
--- OUTSIDE RECORDS SUMMARY | 2024-07-14 22:33 | XMS_ITS | Encounter Summary ---
Author Organization [facility] Address [address] [place] [address] Care Team Providers Care [employer] Control [employer] Warning Systems Name Role Phone Bull Taveras MD Primary Care Provider Nahomi Boyce RN Unavailable Unavailabl e Encounter Details Date Type Department Care Team (Late st Contact Info) Description 12/23/2022 Orders Only [facility] [address] [facility] [address] [place] [facility] [place] [phone] Pooja Chapman, ZIA [address] [facility] [address] [address] [place], [place] [id number] Prediabetes (Primary Dx); Leg cramping; Vitamin D deficiency Social History Tobacco Use Types Packs/Day Years [...] on file 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 Gender Identity Not on file Sexual Orientation Straight 03/05/2021 1: 44 PM CDT documented as of this encounter Plan of Treatment Scheduled Procedures Name Priority Associated Diagnoses Date/Ti ma COLONOSCOPY Encounter for screening colonoscopy COLONOSCOPY Encounter for screening colonoscopy documented as of this encounter Procedures Procedure Name Priority Date/Time Associated Diagnosis Comments MICROSCOPIC EXAMINATION Routine 12/24/2022 10:56 AM CDT THYROID FUNCTION CASCADE Routine 12/24/2022 10:56 AM CDT Prediabetes URINALYSIS AND REFLEX TO MICROSCOPIC Routine 12/24/2022 10:56 AM CDT Prediabetes CBC WITH AUTO DIFFERENTIAL Routine 12/24/2022 10:56 AM CDT Prediabetes VITAMIN D 25 HYDROXY Routine 12/24/2022 10:56 AM CDT Vitamin D deficiency MAGNESIUM Routine 12/24/2022 10:56 AM CDT Leg cramping HEMOGLOBIN A1C Routine 12/24/2022 10:56 AM CDT Prediabetes COMPREHENSIVE METABOLIC PANEL Routine 12/24/2022 10:56 AM CDT Prediabetes documented in this encounter Results * (ABNORMAL) Microscopic Examination (12/24/2022 10:56 AM CDT) WBC, ur >30(A) 0 - 5 /hpf [facility] - 01 RBC, ur 0-2 0 - 2 /hpf [facility] - 01 Epithelial cells, non-renal, ur None seen 0 - 10 /hpf [facility] - 01 Casts None seen None seen /lpf [facility] - 01 Bacteria, ur Moderate(A ) None seen/Few [facility] - 01 12/24/2022 10:5 6 AM CDT 12/24/2022 Narrative [facility] - 12/25/2022 7:11 AM CDT Performed at: ??01 - [facility] [address] ??[id number] Boarder Machine: Singh Chavez PhD, Phone: ??[phone] Pooja Chapman WHEEL AND CASTER REPAIRER LAB BLOOD ORDERABLES Fin al Result Performing Organization Address [facility] de Phone Number [facility] - * (ABNORMAL) Hemoglobin A1c (12/24/2022 10:56 AM CDT) Hgb A1C 5.9(H) 4.8 - 5.6 % [facility] - Comment: ? Prediabetes: 5.7 - 6.4 ? Diabetes: >6.4 ? Glycemic control for adults with diabetes: <7.0 Blood 12/24/2022 10:5 6 AM CDT 12/24/2022 Narrative [facility] - 12/25/2022 7:11 AM CDT Performed at: ??01 - [facility] ??[id number] Boarder Machine: Singh Chavez PhD, Phone: ??[phone] Pooja Chapman NP LAB BLOOD ORDERABLES Fin al Result Performing Organization Address [facility] de Phone Number [facility] - * Magnesium (12/24/2022 10:56 AM CDT) Pathologist [facility] Magnesium 1.7 1.6 - 2.3 mg/dL [facility] - Blood 12/24/2022 10:5 6 AM CDT 12/24/2022 Narrative [facility] - 12/25/2022 7:11 AM CDT Performed at: ??01 - [facility] ??[id number] Boarder Machine: Singh Chavez PhD, Phone: ??[phone] us Pooja Chapman NP LAB BLOOD ORDERABLES Fin al Result Performing Organization Address [facility] de Phone Number [facility] - * TSH reflex to free T4 (12/24/2022 10:56 AM CDT) TSH 0.734 0.450 - 4.500 uIU/mL [facility] - 01 Comment: No apparent thyroid disorder. Additional testing not indicated. In rare instances, Secondary Hypothyroidism as well as Subclinical Hypothyroidism have been reported in some patients with normal TSH values. Blood 12/24/2022 10:5 6 AM CDT 12/24/2022 Narrative [facility] - 12/25/2022 7:11 AM CDT Performed at: ??01 - [facility] [address] ??[id number] Boarder Machine: Singh Chavez PhD, Phone: ??[phone] Pooja Chapman WHEEL AND CASTER REPAIRER LAB BLOOD ORDERABLES Fin al Result [facility] - 01 * Vitamin D 25 hydroxy (12/24/2022 10:56 AM CDT) Vitamin D, 25-Hydroxy 61.8 30.0 - 100.0 ng/mL [facility] - 01 Comment: Vitamin D deficiency has been defined by the [place] of Medicine and an Endocrine Society practice guideline as a level of serum 25-OH vitamin D less than 20 ng/mL (1,2). The Endocrine Society went on to further define vitamin D insufficiency as a level between 21 and 29 ng/mL (2). 1. IOM ([place] of Medicine). 2010. Dietary reference ?? intakes for calcium and D. [place]: The ?? [employer] Press. 2. Shira MF, Yvonne NC, Kassidy OLVERA, et al. ?? Evaluation, treatment, and prevention of vitamin D ?? deficiency: an Endocrine Society clinical practice ?? guideline. JCEM. 2010; 96(7):1911-30. Blood 12/24/2022 10:5 6 AM CDT 12/24/2022 Narrative [facility] - 12/25/2022 7:11 AM CDT Performed at: ??01 - [facility] [address] ??[id number] Boarder Machine: Singh Chavez PhD, Phone: ??[phone] Pooja Chapman WHEEL AND CASTER REPAIRER LAB BLOOD ORDERABLES Fin al Result Performing Organization Address [facility] de Phone Number [facility] - 01 * (ABNORMAL) Urinalysis reflex to microscopic (12/24/2022 10:56 AM CDT) Pathologist [facility] Specific Bitely 1.017 1.005 - 1.030 [facility] - 01 pH, ur 6.5 5.0 - 7.5 [facility] - 01 Color, ur Yellow Yellow [facility] - 01 Appearance, ur Clear Clear [facility] - 01 Leukocyte esterase, ur 2+(A) Negative [facility] - 01 Protein, ur Negative Negative/Tra ce [facility] - 01 Glucose, ur Negative Negative [facility] - 01 Ketones, ur Negative Negative [facility] - 01 Blood, ur Negative Negative [facility] - 01 Bilirubin, ur Negative Negative [facility] - 01 Urobilinogen, quant, ur 0.2 0.2 - 1.0 mg/dL [facility] - 01 Nitrites, ur Positive(A) Negative [facility] - 01 Urinalysis, microscopic exam See below: [facility] - 01 Comment:Microscopic was evaristo cated and was performed. Urine 12/24/2022 10:5 6 AM CDT 12/24/2022 Narrative [facility] - 12/25/2022 7:11 AM CDT Performed at: ??01 - [facility] [address] ??[id number] Boarder Machine: Singh Chavez PhD, Phone: ??[phone] Pooja Chapman WHEEL AND CASTER REPAIRER LAB URINE ORDERABLES Fin al Result Performing Organization Address [facility]/ZIP Co de Phone Number [facility] - 01 * (ABNORMAL) Comprehensive metabolic panel (12/24/2022 10:56 AM CDT) [facility] Glucose 97 70 - 99 mg/dL [facility] - 01 BUN 24 8 - 27 mg/dL [facility] - 01 Creatinine, Serum 1.46(H) 0.57 - 1.00 mg/dL [facility] - 01 eGFR 39(L) >59 mL/min/1.7 3 [facility] - 01 BUN/creat ratio 16 12 - 28 [facility] - 01 Sodium 140 134 - 144 mmol/L [facility] - 01 Potassium, sr 5.1 3.5 - 5.2 mmol/L [facility] - 01 Chloride 105 96 - 106 mmol/L [facility] - 01 CO2 23 20 - 29 mmol/L [facility] - 01 Calcium 9.8 8.7 - 10.3 mg/dL [facility] - 01 Protein, sr 7.0 6.0 - 8.5 g/dL [facility] - 01 Albumin 4.4 3.8 - 4.8 g/dL [facility] - 01 Globulin, Total 2.6 1.5 - 4.5 g/dL [facility] - 01 A/G Ratio 1.7 1.2 - 2.2 [facility] - 01 Bilirubin, Total 0.3 0.0 - 1.2 mg/dL [facility] - 01 Alk phos 120 44 - 121 IU/L [facility] - 01 AST 25 0 - 40 IU/L [facility] - 01 ALT 23 0 - 32 IU/L [facility] - 01 Blood 12/24/2022 10:5 6 AM CDT 12/24/2022 Narrative [facility] - 12/25/2022 7:11 AM CDT Performed at: ??01 - [facility] [address] ??[id number] Boarder Machine: Singh Cahvez PhD, Phone: ??[phone] us Pooja Chapman WHEEL AND CASTER REPAIRER LAB BLOOD ORDERABLES Fin al Result [facility] - 01 * CBC with auto differential (12/24/2022 10:56 AM CDT) Pathologist [facility] WBC 6.0 3.4 - 10.8 x10E3/uL [facility] - 01 RBC 4.13 3.77 - 5.28 x10E6/uL [facility] - 01 Hgb 12.1 11.1 - 15.9 g/dL [facility] - 01 Hct 36.1 34.0 - 46.6 % [facility] - 01 MCV 87 79 - 97 fL [facility] - 01 MCH 29.3 26.6 - 33.0 pg [facility] - 01 MCHC 33.5 31.5 - 35.7 g/dL [facility] - 01 Rdw 14.2 11.7 - 15.4 % [facility] - 01 Platelets 307 150 - 450 x10E3/uL [facility] - 01 Neutrophils pct 57 Not Estab. % [facility] - 01 Lymphs pct 28 Not Estab. % [facility] - 01 Monocytes pct 9 Not Estab. % [facility] - 01 Eosinophils pct 4 Not Estab. % [facility] - 01 Basophil pct 2 Not Estab. % [facility] - 01 Neutrophil abs 3.5 1.4 - 7.0 x10E3/uL [facility] - 01 Lymphs (Absolute) 1.7 0.7 - 3.1 x10E3/uL [facility] - 01 Monocyte abs 0.6 0.1 - 0.9 x10E3/uL [facility] - 01 Eosinophils, abs 0.2 0.0 - 0.4 x10E3/uL [facility] - 01 Basophils, abs 0.1 0.0 - 0.2 x10E3/uL [facility] - 01 Immature Granulocytes 0 Not Estab. % [facility] - 01 Immature Grans (Abs) 0.0 0.0 - 0.1 x10E3/uL [facility] - 01 Blood 12/24/2022 10:5 6 AM CDT 12/24/2022 Narrative [facility] - 12/25/2022 7:11 AM CDT Performed at: ??01 - [facility] [address], [place], [place] ??[id number] Boarder Machine: Singh Chavez PhD, Phone: ??[phone] us Pooja Chapman WHEEL AND CASTER REPAIRER LAB BLOOD ORDERABLES Fin al Result [facility] - 01 documented in this encounter Visit Diagnoses Diagnosis Prediabetes- Primary Other abnormal glucose Leg cramping Vitamin D deficiency documented in this encounter Care Teams [employer] Relationship Specialty Start Date End Date Bull Taveras MD [address] [address] PCP - General Internal Medicine 08/24/20 Nahomi Boyce RN Registered Nurse Pulmonary Disease 11/12/22 documented as of this encounter
--- OUTSIDE RECORDS SUMMARY | 2024-07-14 22:33 | XMS_ITS | Encounter Summary ---
Author Organization [facility] Address [address] [place] [address] Care Team Providers Care Product Analyst Name Role Phone Bull Taveras MD Primary Care Provider Encounter Details Date Type Department Care Team (Late st Contact Info) Description 10/09/2022 Orders Only [facility] [address] [facility] [address] [place] [address] Pooaj Chapman, ZIA [address] [facility] [address] [place], [place] [id number] Social History Tobacco Use Types Packs/Day Years Used Date Smoking Tobacco: Former Cigarettes Q uit: 12/13/2019 Smokeless Tobacco: Never Comments Unknown Sex and Gender Information Value Date Recorded Sex Assigned at Not on file 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 6 tablet 10/09/2022 12/26/2022 documented in this encounter Plan of Treatment Scheduled Procedures Name Priority Associated Diagnoses Date/Ti me COLONOSCOPY Encounter for screening colonoscopy COLONOSCOPY Encounter for screening colonoscopy documented as of this encounter Visit Diagnoses Not on filedocumented in this encounter Care Teams Product Analyst Relationship Specialty Start Date End Date Bull Taveras MD [address] [place] [address] PCP - General Internal Medicine 08/24/20 documented as of this encounter
--- OUTSIDE RECORDS SUMMARY | 2024-07-14 22:33 | XMS_ITS | Encounter Summary ---
Author Organization [facility] Address [address] [place] [address] Care Team Providers Care Livestock Farmers Name Role Phone Bull Taveras MD Primary Care Provider [phone] Nahomi Boyce RN Unavailable Unavailabl e Reason for Visit * Reason Comments Hyperlipidemia Hip Pain Left hip pain, troub le sleeping on that side Encounter Details Date Type Department Care Team (Late st Contact Info) Description 12/26/2022 11:45 AM CDT Office Visit [facility] [address] [facility] [address] [place] [address] Bull Taveras MD [address] [facility] [address] [place], [place] [id number] Stage 3a chronic kidney disease (HCC) (Primary Dx); Paroxysmal atrial fibrillation (CMS/HCC) (HCC); Hyperlipidemia, unspecified hyperlipidemia type; Chronic obstructive pulmonary disease, unspecified COPD type (HCC); Essential hypertension; Acute cystitis without hematuria Social History Tobacco Use Types Packs/Day Years Used Date Smoking Tobacco: Former Cigarettes Q uit: 12/13/2019 Smokeless Tobacco: Never Tobacco Cessation:Counseling Given: Not Answered AUDIT-C Answer Date Recorded Q1: How often do you have a drink containing alc ohol? 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 Gender Identity Not on file Sexual Orientation Straight 03/05/2021 1: 44 PM CDT documented as of this encounter Last Filed Vital Signs Vital Sign Reading Time Taken Comments Blood Pressure 128/76 12/26/2022 11:57 AM CDT Pulse 68 12/26/2022 11:57 AM CDT Temperature - - Respiratory Rate - - Oxygen Saturation - - Inhaled Oxygen Concentration - - Weight 87.5 kg (193 lb) 12/26/2022 11:57 AM CDT Height 162.6 cm (5' 4 ) 12/26/2022 11:57 AM CDT Body Mass Index 33.13 12/26/2022 11:57 AM CDT documented in this encounter Ordered Prescriptions Prescription Sig Dispense Quantity Refills Last Filled Start Date End Date nitrofurantoin monohydrate (MACROBID) 100 mg capsule Take 1 capsule (100 mg total) by mouth 2 (two) times a day for 7 days 14 capsule 12/26/2022 3 albuterol HFA (PROVENTIL HFA,VENTOLIN HFA,PROAIR HFA) 90 mcg/actuation inhaler Inhale 2 puffs every 6 (six) hours as needed for wheezing 1 each 12/26/2022 4 documented in this encounter Progress Notes * Bull Taveras MD - 12/26/2022 11:45 AM CDT Images from the original note were not included. Subjective/Objective Patient ID: Lisa Scott is a 67 y.o. female. Chief Complaint Hyperlipidemia and Hip Pain (Left hip pain, trouble sleeping on that side ) Hyperlipidemia Pertinent negatives include no chest pain or shortness of breath. Hip Pain She does have a previous history of [...] pressure has also been lower as well. Past Surgical History: Procedure Laterality Date REPAIR [...] tablet (10 mg total) by mouth nightly cetirizine (ZyrTEC) 10 mg tablet Take 1 tablet (10 mg total) by mouth daily [employer] Allergy chlorthalidone 25 mg tablet Take 1/2 (one-half) tablet by mouth once daily cholecalciferol (VITAMIN D-3) 25 mcg (1,000 unit) tablet Take 1 tablet (1,000 Units total) by mouthdaily DILT-XR 120 mg 24 hr capsule TAKE 1 BY MOUTH ONCE DAILY IN THE MORNING Eliquis 5 mg tablet Take 1 tablet (5 mg total) by mouth every 12 (twelve) hours lisinopriL (PRINIVIL,ZESTRIL) 10 mg tablet Take 1 tablet (10 mg total) by mouth daily lysine 500 mg tablet 1 tablet (500 mg total) magnesium oxide 400 mg magnesium capsule Take by mouth potassium gluconate 595 mg (99 mg) tablet 1 tablet (595 mg total) umeclidinium-vilanteroL (Anoro Ellipta) 62.5-25 mcg/actuation blister with device Inhale 1 puff daily Review of Systems Constitutional: Negative for appetite change, fatigue, fever and unexpected weight change. HENT: Negative for ear pain, hearing loss and sore throat. Eyes: Negative for visual disturbance. Respiratory: Negative for cough, shortness of breath and wheezing. Cardiovascular: Negative for chest pain, palpitations and leg swelling. Gastrointestinal: Negative for abdominal pain, anal bleeding, blood in stool, constipation, diarrhea, nausea and vomiting. Endocrine: Negative for cold intolerance, heat intolerance, polydipsia, polyphagia and polyuria. Genitourinary: Negative for dysuria and hematuria. Musculoskeletal: Negative for arthralgias, back pain and joint swelling. Skin: Negative for rash. Neurological: Negative for dizziness, weakness and headaches. Hematological: Negative for adenopathy. Does not bruise/bleed easily. Psychiatric/Behavioral: Negative for dysphoric mood. The patient is not nervous/anxious. Breast: Negative for tenderness and lump(s). Patient Vital Signs for the past 24 hrs: BP Pulse Height Weight 12/26/22 1157 128/76 68 162.6 cm (5' 4 ) 87.5 kg (193 lb) Wt Readings from Last 3 Encounters: 12/26/22 87.5 kg (193 lb) 11/12/22 90.3 kg (199 lb) 09/13/22 89.4 kg (197 lb) Physical Exam Vitals and nursing note reviewed. [...] this visit: Stage 3a chronic kidney disease ([facility]) (N18.31) (Primary) Comments: Creatinine stable recent labs reviewed Paroxysmal atrial fibrillation ([facility]/HCC) ([facility]) (I48.0) Hyperlipidemia, unspecified hyperlipidemia type (E78.5) Chronic obstructive pulmonary disease, unspecified COPD type ([facility]) (J44.9) Comments: Continue pulmonary rehab Essential hypertension (I10) Comments: BP at target Acute cystitis without hematuria (N30.00) Comments: Will give antibiotics Other orders - albuterol HFA (PROVENTIL HFA,VENTOLIN HFA,PROAIR HFA) 90 mcg/actuation inhaler; Inhale 2 puffs every 6 (six) hours as needed for wheezing Labs Lab Results Component Value Date HGBA1C 5.9 (H) 12/24/2022 Lab Results Component Value Date POCCHOL 171 09/13/2022 POCCHOL 175 05/16/2022 POCCHOL 170 01/10/2022 Lab Results Component Value Date POCHDL 69 09/13/2022 POCHDL 69 05/16/2022 POCHDL 65 01/10/2022 Lab Results Component Value Date POCLDL 79 09/13/2022 POCLDL 83 05/16/2022 POCLDL 79 01/10/2022 Lab Results Component Value Date POCTRIG 114 09/13/2022 POCTRIG 113 05/16/2022 POCTRIG 127 01/10/2022 No results found for: A1C Lab Results Component Value Date CREATININE 1.44 (H) 12/24/2022 CREATININE 1.46 (H) 12/24/2022 CREATININE 1.31 (H) 02/14/2022 Lab Results Component Value Date COLORU Yellow 12/24/2022 CLARITYU Clear 05/05/2021 GLUCOSEUR Negative 12/24/2022 BILIRUBINUR Negative 08/07/2021 KETONESU Negative 12/24/2022 SPECGRAVU 1.015 08/07/2021 BLOODUR Negative 05/05/2021 SUSSY 5.5 08/07/2021 PROTUR Negative 08/07/2021 UROBILINOGEN 0.2 08/07/2021 POCURNITRITE Negative 08/07/2021 LOTNUMBER [id number] 08/07/2021 Bull Taveras MD documented in this encounter Plan of Treatment Scheduled Procedures Name Priority Associated Diagnoses Date/Ti me COLONOSCOPY Encounter for screening colonoscopy COLONOSCOPY Encounter for screening colonoscopy documented as of this encounter Visit Diagnoses Diagnosis Stage 3a chronic kidney disease (HCC)- Primary Paroxysmal atrial fibrillation (CMS/HCC) (HCC) Atrial fibrillation Hyperlipidemia, unspecified hyperlipidemia type Chronic obstructive pulmonary disease, unspecified COPD type (HCC) Essential hypertension Unspecified essential hypertension Acute cystitis without hematuria documented in this encounter Discontinued Medications Medication Sig Discontinue Reason Start Date End Da te albuterol HFA (ProAir HFA) 90 mcg/actuation inhaler Inhale 2 puffs every 4 (four) hours as needed for wheezing Therapy completed 12/04/2022 12/26/2022 azithromycin (ZITHROMAX) 250 mg tabletIndications:Upper Respiratory/HEENT Infection Take 2 tabs (500 mg) by mouth today, than 1 tab (250 mg) daily for 4 days. Therapy completed 10/09/2022 12/26/2022 fluticasone propionate (FLOVENT HFA) 44 mcg/actuation inhaler Inhale 2 puffs 2 (two) times a day for 14 days Rinse mouth with water after use. Do not swallow. Therapy completed 11/27/2022 12/26/2022 documented as of this encounter Care Teams Livestock Farmers Relationship Specialty Start Date End Date Bull Taveras MD [address] [address] PCP - General Internal Medicine 08/24/20 Nahomi Boyce RN Registered Nurse Pulmonary Disease 11/12/22 documented as of this encounter
--- OUTSIDE RECORDS SUMMARY | 2024-07-14 22:33 | XMS_ITS | Encounter Summary ---
Author Organization 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 Still coughing daily. Productive of clear sputum, no hemoptysis, having both mild rhinitis and significant PND. No GERD. Wheezing occasionally and using albuterol up to QID. No sick contacts, no fevers or chills. Asked her to use OTC Flonase 1 spray BID and will call in QVAR BID for 14 days. documented in this encounter Plan of Treatment Scheduled Procedures Name Priority Associated Diagnoses Date/Ti me COLONOSCOPY Encounter for screening colonoscopy COLONOSCOPY Encounter for screening colonoscopy documented as of this encounter Visit Diagnoses Not on filedocumented in this encounter Care Teams Biology Teacher Relationship Specialty Start Date End Date Bull Taveras MD [address] [address] PCP - General Internal Medicine 08/24/20 Nahomi Boyce, RN Registered Nurse Pulmonary Disease 11/12/22 documented as of this encounter
--- OUTSIDE RECORDS SUMMARY | 2024-07-14 22:33 | XMS_ITS | Encounter Summary ---
Author Organization [facility] Address [address] [place] [address] Phone Care Team Providers Care Dental Laboratory Technology Teacher Name Role Phone Bull Taveras MD Primary Care Provider [phone] Nahomi Boyce RN Unavailable Unavailabl e Encounter Details Date Type Department Care Team (Late st Contact Info) Description 11/27/2022 Orders Only [facility] [address] [facility] 8th [place] [address] [place] [address] Conner Vale MD [address] [place] [address] Social History Tobacco Use Types [...] on file 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 Do not swallow. 1 each 11/27/2022 12/26/2022 documented in this encounter Plan of Treatment Scheduled Procedures Name Priority Associated Diagnoses Date/Ti me COLONOSCOPY Encounter for screening colonoscopy COLONOSCOPY Encounter for screening colonoscopy documented as of this encounter Visit Diagnoses Not on filedocumented in this encounter Discontinued Medications Medication Sig Discontinue Reason Start Date End Da te beclomethasone dipropionate (Qvar RediHaler) 40 mcg/actuation inhaler Inhale 2 puffs 2 (two) times a day for 14 days Rinse mouth with water after use. Do not swallow. Alternate therapy 11/27/2022 11/27/2022 documented as of this encounter Care Teams Dental Laboratory Technology Teacher Relationship Specialty Start Date End Date Bull Taveras MD [address] [address] PCP - General Internal Medicine 08/24/20 Nahomi Boyce RN Registered Nurse Pulmonary Disease 11/12/22 documented as of this encounter
--- OUTSIDE RECORDS SUMMARY | 2024-07-14 22:33 | XMS_ITS | Encounter Summary ---
Author Organization [facility] Address [address] [place] [address] Care Team Providers Care Guide Travel Name Role Phone Bull Taveras MD Primary Care Provider [phone] Encounter Details Date Type Department Care Team (Late st Contact Info) Description 10/03/2022 Orders Only [facility] [address] 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 Gender Identity Not on file Sexual Orientation Straight 03/05/2021 1: 44 PM CDT documented as of this encounter Ordered Prescriptions Prescription Sig Dispense Quantity Refills Last Filled Start Date End Date molnupiravir 200 mg capsule (EUA) Take 4 capsules (800 mg total) by mouth every 12 (twelve) hours for 5 days 40 capsule 10/03/2022 documented in this encounter Plan of Treatment Scheduled Procedures Name Priority Associated Diagnoses Date/Ti me COLONOSCOPY Encounter for screening colonoscopy COLONOSCOPY Encounter for screening colonoscopy documented as of this encounter Visit Diagnoses Not on filedocumented in this encounter Care Teams Guide Travel Relationship Specialty Start Date End Date Bull Taveras MD [address] [address] PCP - General Internal Medicine 08/24/20 documented as of this encounter
--- OUTSIDE RECORDS SUMMARY | 2024-07-14 22:33 | XMS_ITS | Encounter Summary ---
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 Vale. Pt had mentioned a cough she was concerned about during our phone conversation. Message sent to RN. documented in this encounter Plan of Treatment Scheduled Procedures Name Priority Associated Diagnoses Date/Ti me COLONOSCOPY Encounter for screening colonoscopy COLONOSCOPY Encounter for screening colonoscopy documented as of this encounter Visit Diagnoses Not on filedocumented in this encounter Care Teams Group Captain Relationship Specialty Start Date End Date Bull Taveras MD [address] [address] PCP - General Internal Medicine 08/24/20 Nahomi Boyce RN Registered Nurse Pulmonary Disease 11/12/22 documented as of this encounter
--- OUTSIDE RECORDS SUMMARY | 2024-07-14 22:33 | XMS_ITS | Encounter Summary ---
Author Organization [facility] Address [address] [place] [address] Phone Care Team Providers Care Service Shop Foreman Name Role Phone Bull Taveras MD Primary Care Provider [phone] Nahomi Boyce RN Unavailable Unavailabl e Reason for Visit * Consultation (Routine) - Closed Specialty Diagnoses / Procedures Referred By Grecia t Referred To Contact Cardiology Diagnoses Essential hypertension Paroxysmal atrial fibrillation (CMS/HCC) (HCC) Kalia Mcconnell MD Phone: tel: fax: [facility] (All Locations) Referral ID Status Reason Start Date Expiration Date V isits Requested Visits Authorized [id number] Closed Specialty Services Required 02/07/2022 03/09/2023 4 4 Encounter Details Date Type Department Care Team (Late st Contact Info) Description 12/31/2022 4:15 PM CDT Office Visit [facility] [address] [facility] Medical Office Building [address] [place] [address] Kalia Mcconnell MD [address] [address] Paroxysmal atrial fibrillation (CMS/HCC) (HCC) (Primary Dx); Essential hypertension; Hyperlipidemia, unspecified hyperlipidemia type Social [...] on file 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 Gender Identity Not on file Sexual Orientation Straight 03/05/2021 1: 44 PM CDT documented as of this encounter Last Filed Vital Signs Vital Sign Reading Time Taken Comments Blood Pressure 118/76 12/31/2022 4:13 PM CDT Pulse 96 12/31/2022 4:13 PM CDT Temperature - - Respiratory Rate - - Oxygen Saturation 95% 12/31/2022 4:13 PM CDT Inhaled Oxygen Concentration - - Weight 87.5 kg (193 lb) 12/31/2022 4:13 PM CDT Height 162.6 cm (5' 4 ) 12/31/2022 4:13 PM CDT Body Mass Index 33.13 12/31/2022 4:13 PM CDT documented in this encounter Progress Notes * Petros Meza MD - 12/31/2022 4:15 PM CDT Images from the original note were not included. Cardiology Return Clinic Visit Visit Date: 12/31/22 Patient Diagnosis List Paroxysmal Atrial Fibrillation on eliquis Hypertension Obstructive Sleep Apnea Chronic kidney disease Hyperlipidemia Dear Bull Taveras MD We had the pleasure of seeing Lisa Scott at the [facility] in [place]. As you recall, she is a pleasant 67 y.o. female that we are seeing for paroxysmal atrial fibrillation She denies any significant symptoms of palpitations. She continues to remain adherent to diltiazem and is anticoagulated with Eliquis for CVA prophylaxis. She denies any bleeding concerns at this time. She states that she is adherent to her CPAP machine. She otherwise continues to do well without any chest pain, pressure, dyspnea, dyspnea on exertion, orthopnea, or PND. She is excited about her blood pressure. She is undergoing pulmonary rehab. ROS: As her HPI, otherwise all other review of systems reviewed and negative Meds Current Outpatient Medications: ??? albuterol HFA (PROVENTIL HFA,VENTOLIN HFA,PROAIR HFA) 90 mcg/actuation inhaler, Inhale 2 puffs every 6 (six) hours as needed for wheezing, Disp: 1 each, Rfl: 0 ??? atorvastatin (LIPITOR) 10 mg tablet, Take 1 tablet (10 mg total) by mouth nightly, Disp: 30 tablet, Rfl: 9 ??? cetirizine (ZyrTEC) 10 mg tablet, Take 1 tablet (10 mg total) by mouth daily [employer] Allergy, Disp: , Rfl: ??? DILT-XR 120 mg 24 hr capsule, TAKE 1 BY MOUTH ONCE DAILY IN THE MORNING, Disp: 90 capsule, Rfl:0 ??? Eliquis 5 mg tablet, Take 1 tablet (5 mg total) by mouth every 12 (twelve) hours, Disp: 180 tablet, Rfl: 0 ??? lisinopriL (PRINIVIL,ZESTRIL) 10 mg tablet, Take 1 tablet (10 mg total) by mouth daily, Disp: 90 tablet, Rfl: 3 ??? lysine 500 mg tablet, 1 tablet (500 mg total), Disp: , Rfl: ??? magnesium oxide 400 mg magnesium capsule, Take by mouth, Disp: , Rfl: ??? nitrofurantoin monohydrate (MACROBID) 100 mg capsule, Take 1 capsule (100 mg total) by mouth 2 (two) times a day for 7 days, Disp: 14 capsule, Rfl: 0 ??? potassium gluconate 595 mg (99 mg) tablet, 1 tablet (595 mg total), Disp: , Rfl: ??? umeclidinium-vilanteroL (Anoro Ellipta) 62.5-25 mcg/actuation blister with device, Inhale 1 puff daily, Disp: 60 each, Rfl: 5 ??? chlorthalidone 25 mg tablet, Take 1/2 (one-half) tablet by mouth once daily, Disp: 15 tablet, Rfl: 7 ??? cholecalciferol (VITAMIN D-3) 25 mcg (1,000 unit) tablet, Take 1 tablet (1,000 Units total) by mouth daily, Disp: 30 tablet, Rfl: 11 Objective Vitals & Physical Exam height is 162.6 cm (5' 4 ) and weight is 87.5 kg (193 lb). Her blood pressure is 118/76 and her pulse is 96. Her oxygen saturation is 95%. GEN: pleasant and in NAD; alert, comfortable, thought content appropriate HENT: NCAT, MMM, anicteric, no conjunctival pallor CVS: RRR, S1S2, no rubs/murmurs/gallops, no JVP appreciated, no edema PULM: non-labored, good inspiratory effort ABD: soft, NTND EXT: equal radial pulses Neuro: no abnormal movements, nonfocal exam Skin: warm, dry Assessment Recommendations Paroxysmal atrial fibrillation She continues to remain in sinus rhythm. We will continue diltiazem 120 mg daily. Will continue Eliquis given CHADS2 Vasc of 3. We will have her monitor for any bleeding concerns and notify us if there is any change in her symptomatology. Hypertension Her blood pressure is acceptable today. We will continue the current regimen. Hyperlipidemia Her lipids continue to remain adequately controlled. Will continue atorvastatin 10 mg daily at thistime. Thank you for the opportunity to participate in the care of this wonderful patient. We will plan onseeing them back in 12 months time. Please do not hesitate to contact us with any questions or concerns that may arise in the interim. Patient seen and discussed with Dr. Kalia Meza MD Cardiovascular Disease Fellow Cosigned by Kalia Mcconnell MD at 01/01/2023 5:02 PM CDT Associated attestation - Kalia Mcconnell MD - 01/01/2023 5:02 PM CDT I have seen and examined the patient. I agree with the findings and plan of care as discussed with the resident/fellow. The patient has not had any significant episodes of atrial fibrillation. She continues to remain onEliquis without any concerns for bleeding. She notes that her respiratory status has also improved and continues to do pulmonary rehab. We will continue current management at this time with no changes. documented in this encounter Plan of Treatment Scheduled Procedures Name Priority Associated Diagnoses Date/Ti de COLONOSCOPY Encounter for screening colonoscopy COLONOSCOPY Encounter for screening colonoscopy documented as of this encounter Visit Diagnoses Diagnosis Paroxysmal atrial fibrillation (CMS/HCC) (HCC)- Primary Atrial fibrillation Essential hypertension Unspecified essential hypertension Hyperlipidemia, unspecified hyperlipidemia type documented in this encounter Care Teams Service Shop Foreman Relationship Specialty Start Date End Date Bull Taveras MD [address] [address] PCP - General Internal Medicine 08/24/20 Nahomi Boyce, RN Registered Nurse Pulmonary Disease 11/12/22 documented as of this encounter
--- OUTSIDE RECORDS SUMMARY | 2024-07-14 22:33 | XMS_ITS | Encounter Summary ---
Author Organization [facility] Healthcare Address [address] [place] [address] Care Team Providers Care Engineering Systems Analyst Name Role Phone Bull Taveras MD Primary Care Provider [phone] Nahomi Boyce RN Unavailable Unavailabl e Reason for Referral * Diagnostic Imaging (Routine) - Closed Specialty Diagnoses / Procedures Referred By Grecia paulino Referred To Contact Diagnoses Chronic obstructive pulmonary disease with acute lower respiratory infection (HCC) Procedures XR Chest Pa Lateral 2 Views Conner Vale MD [address] [address] Phone: tel: fax: [address] [phone] Referral ID Status Reason Start Date Expiration Date Visits Re quested Visits Authorized [id number] Closed 11/12/2022 12/12/2023 1 1 Reason for Visit * Diagnostic Imaging (Routine) - Closed Specialty Diagnoses / Procedures Referred By Grecia paulino Referred To Contact Diagnoses Chronic obstructive pulmonary disease with acute lower respiratory infection (HCC) Procedures XR Chest Pa Lateral 2 Views Conner Vale MD [address] [address] Phone: tel: fax: [address] [phone] Referral ID Status Reason Start Date Expiration Date Visits Re quested Visits Authorized [id number] Closed 11/12/2022 12/12/2023 1 1 Encounter Details Date Type Department Care Team (Latest Contact Info) Description 11/21/2022 1:51 PM CDT - 11/21/2022 11:59 PM CDT Hospital Encounter [facility] [address] [place] [address] Chronic obstructive pulmonary disease with acute lower respiratory infection (HCC) Discharge Disposition: Discharge to home or [...] on file 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 6 tablet 10/09/2022 3 chlorthalidone 25 mg tabletIndications: Essential hypertension Take 1/2 (one-half) tablet by mouth once daily 15 tablet 7 08/02/2022 3 DILT-XR 120 mg 24 hr capsule TAKE 1 BY MOUTH ONCE DAILY IN THE MORNING 90 capsule 09/26/2022 3 Eliquis 5 mg tablet Take 1 tablet (5 mg total) by mouth every 12 (twelve) hours 180 tablet 10/31/2022 3 lisinopriL (PRINIVIL,ZESTRIL) 10 mg tablet Take 1 tablet (10 mg total) by mouth daily 90 tablet 3 06/26/2022 3 lysine 500 mg tablet 1 tablet (500 mg total) 4 potassium gluconate 595 mg (99 mg) tablet 1 tablet (595 mg total) 4 umeclidinium-vilan teroL (Anoro Ellipta) 62.5-25 mcg/actuation blister with device Inhale 1 puff daily 60 each 5 08/28/2022 3 documented as of this encounter Discharge Disposition [...] VIEWS Schedule Routine, Read Routine (OP Routine) 11/21/2022 2:01 PM CDT Chronic obstructive pulmonary disease with acute lower respiratory infection (HCC) documented in this encounter Results * XR Chest Pa Lateral 2 Views (11/21/2022 2:01 PM CDT) Anatomical Region Laterality Modality Body, Chest N/A Computed Radiogr aphy 11/24/2022 8:39 AM CDT Narrative 11/24/2022 8:40 AM CDT EXAM DESCRIPTION: XR CHEST PA LATERAL 2 VIEWS REASON FOR STUDY: Cough and shortness of breath. ??COVID-19 for 7 weeks. ?? Emphysema. ??Former smoker. TECHNIQUE: Frontal and lateral ??radiographic view(s) of the chest. COMPARISON: 12/26/2020. FINDINGS: LUNGS: The lungs are well expanded. ??Unchanged calcified granuloma is seen in the right upper lobe. ??No new focal airspace or interstitial opacities are seen. ??There is no pleural effusion or pneumothorax. HEART/MEDIASTINUM: The heart size is normal. ??Unchanged calcified lymph nodes in the mediastinum. ??Overall mediastinal contour is stable without widening. BONES: No acute osseous abnormality. LINES/TUBES: None. ?? IMPRESSION: No acute findings identified. Chronic changes as described above. THIS IS AN ELECTRONICALLY VERIFIED FINAL REPORT 11/24/2022 8:40 AM - Electronically signed by ??Rogelio Way M.D. RL: MORIS D: ??11/24/2022 8:40 AM T: ??11/24/2022 8:40 AM Report ID: [id number] Reading Location: ??[id number] Procedure Note Rogelio Burton MD - 11/24/2022 EXAM DESCRIPTION: XR CHEST PA LATERAL 2 VIEWS REASON FOR STUDY: Cough and shortness of breath. COVID-19 for 7 weeks. Emphysema. Former smoker. TECHNIQUE: Frontal and lateral radiographic view(s) of the chest. COMPARISON: 12/26/2020. FINDINGS: LUNGS: The lungs are well expanded. Unchanged calcified granuloma is seenin the right upper lobe. No new focal airspace or interstitial opacities are seen. There is no pleural effusion or pneumothorax. HEART/MEDIASTINUM: The heart size is normal. Unchanged calcified lymphnodes in the mediastinum. Overall mediastinal contour is stable withoutwidening. BONES: No acute osseous abnormality. LINES/TUBES: None. IMPRESSION: No acute findings identified. Chronic changes as described above. THIS IS AN ELECTRONICALLY VERIFIED FINAL REPORT 11/24/2022 8:40 AM - Electronically signed by Rogelio Way M.D. RL: MORIS Report ID: [id number] Reading Location: [id number] Conner Vale MD IMG XR PROCEDURES Final Result documented in this encounter Visit Diagnoses Diagnosis Chronic obstructive pulmonary disease with acute lower respiratory infection (HCC) documented in this encounter Care Teams Engineering Systems Analyst Relationship Specialty Start Date End Date Bull Taveras MD [address] [place] [address] PCP - General Internal Medicine 08/24/20 Nahomi Boyce RN Registered Nurse Pulmonary Disease 11/12/22 documented as of this encounter
--- OUTSIDE RECORDS SUMMARY | 2024-07-14 22:33 | XMS_ITS | Encounter Summary ---
Author Organization [facility] Address [address] [place] [address] Phone Care Team Providers Care Press Leader Name Role Phone Bull Taveras MD Primary Care Provider [phone] Nahomi Boyce RN Unavailable Unavailabl e Reason for Referral * Diagnostic Imaging (Routine) - Closed Specialty Diagnoses / Procedures Referred By Grecia paulino Referred To Contact Diagnoses Chronic obstructive pulmonary disease with acute lower respiratory infection (HCC) Procedures XR Chest Pa Lateral 2 Views Conner Vale MD [address] [place] [address] Phone: tel: fax: [address] [phone] Referral ID Status Reason Start Date Expiration Date Visits Re quested Visits Authorized [id number] Closed 11/12/2022 12/12/2023 1 1 * Procedure (Routine) - Closed Specialty Diagnoses / Procedures Referred By Grecia paulino Referred To Contact Pulmonary Disease Diagnoses Chronic obstructive pulmonary disease with acute lower respiratory infection (HCC) COVID Procedures Pulmonary Function Test -[facility]- [facility]; Spirometry, Oxygen Assessment Titration Conner Vale MD [address] [place] [address] Phone: tel: fax: Referral ID Status Reason Start Date Expiration Date Visits Re quested Visits Authorized [id number] Closed 11/12/2022 12/12/2023 2 2 * MRI/CAT/PET Scan (Routine) - Closed Specialty Diagnoses / Procedures Referred By Grecia t Referred To Contact Radiology Diagnoses Chronic obstructive pulmonary disease with acute lower respiratory infection (HCC) COVID Procedures CT Chest WO Contrast Conner Vale MD [address] [place] [address] Phone: tel: fax: [facility] [address] [place] [address] Referral ID Status Reason Start Date Expiration Date Visits Re quested Visits Authorized [id number] Closed 11/12/2022 12/12/2023 1 1 Reason for Visit * Consultation (Routine) - Closed Specialty Diagnoses / Procedures Referred By Grecia t Referred To Contact Pulmonary Disease / Pulmonology Diagnoses Chronic obstructive pulmonary disease, unspecified COPD type (HCC) Bull Taveras MD [address] [facility] [address] [place] [address] Phone: tel: fax: [facility] (All Locations) Referral ID Status Reason Start Date Expiration Date V isits Requested Visits Authorized [id number] Closed Specialty Services Required 04/15/2022 02/09/2023 12 12 Encounter Details Date Type Department Care Team (Late st Contact Info) Description 11/12/2022 4:00 PM CDT Office Visit [facility] Pulmonary [address] [facility] [address] [place] [address] Conner Vale MD [address] [place] [address] Chronic obstructive pulmonary disease with acute lower respiratory infection (HCC) (Primary Dx); COVID Social History Tobacco Use Types Packs/Day [...] on file 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 Gender Identity Not on file Sexual Orientation Straight 03/05/2021 1: 44 PM CDT documented as of this encounter Last Filed Vital Signs Vital Sign Reading Time Taken Comments Blood Pressure 136/80 11/12/2022 3:42 PM CDT Pulse 90 11/12/2022 3:42 PM CDT Temperature 36.8 ??C (98.2 ??F) 11/12/2022 3:42 PM CD T Respiratory Rate 18 11/12/2022 3:42 PM CDT Oxygen Saturation 95% 11/12/2022 3:42 PM CDT Inhaled Oxygen Concentration - - Weight 90.3 kg (199 lb) 11/12/2022 3:42 PM CDT Height 162.6 cm (5' 4 ) 11/12/2022 3:42 PM CDT Body Mass Index 34.16 11/12/2022 3:42 PM CDT documented in this encounter Progress Notes * Sridhar Hadley MD - 11/12/2022 4:00 PM CDT [facility], PULMONARY MEDICINE, [address] [place] [address], [address]TH FLOOR, [facility], [address] [place], [place] [id number] PROBLEM LIST: GOLD2B chronic obstructive pulmonary disease [...] not require hospitalization. B. Treated with Molnupiravir. Subjective/Objective INTERVAL HISTORY: Ms. Scott is a 67 y.o. female who [facility] for GOLD2B chronic obstructive pulmonary disease and lung cancer screening. The patient was last seen 04/23/22. In the interval, the patient states she was diagnosed with COVID-19 approximately 6 weeks prior to today's clinic appointment. She did not require hospitalization and was treated in the outpatient setting with Molnupiravir.Subsequently, given persistent symptoms she received a course of Azithromycin and a Medrol Dosepak 2 weeks thereafter. Today, she endorses progressive dyspnea on exertion that is worse compared to April 2022. She states this is possibly precipitated by the purchase of a new wool rug and/or a new pet kitten. She is able to do all activities of daily living independently. She rates her dyspnea on exertion as moderate with showering and dressing, mild with head of integrated media, moderate with shopping, and moderate with climbing stairs. She states her activity level is unchanged from prior and not limited by respiratory status. She is now participating in pulmonary rehabilitation and did her second session today. Furthermore, she endorsing compliance with her nocturnal CPAP. Lastly, she is up to date on her COVID19, Influenza, and Pneumococcal vaccines. On review of systems, she endorses nasal congestion, 10 pound intentional weight loss, recent illness (COVID19), and cough. The cough was precipitated by COVID19 and gradually improving. Prior to COVID, she denies any cough. She denies fevers, chills, chest pain, peripheral edema, paroxsymal nocturnal dyspnea, or orthopnea. MEDICATIONS: Albuterol 90mcg/actuation HFA PRN, which she uses multiple times daily Atorvastatin daily Cetirizine daily Chlorthalidone daily Vitamin D supplementation daily Diltiazem daily Apixaban BID Lisinopril daily Lysine dialy Magnesium oxide daily Potassium gluconate daily Anoro 62.5-25mcg 1 puff daily REVIEW OF SYSTEMS: All systems reviewed and otherwise negative other than per HPI. PHYSICAL EXAM: Vitals BP 136/80 (BP Location: Left arm, Patient Position: Sitting) Pulse 90 Temp 36.8 ??C (98.2 ??F) Resp 18 Ht 162.6 cm (5' 4 ) Wt 90.3 kg (199 lb) SpO2 95% BMI 34.16 kg/m?? Constitutional: Well developed. Well nourished. Alert and cooperative. In no acute distress. Head: Normocephalic. Atraumatic. Cardiac: Normal rate, regular rhythm. Normal S1/S2. No murmurs, rubs, or gallops. Resp: Clear to auscultation bilaterally. No wheezes, rhonchi, or rales. Normal work of breathing. Abdomen: Soft. Non- distended. Non- tender. Positive bowel sounds. No guarding or rebound tenderness. Psychiatric: Appropriate affect and behavior. Extremities: No sigificant deformity or joint abnormality. No edema. Peripheral pulses intact. No varicosities. Neuro: No focal neurologic deficits. DATA: Spirometry Date FVC FEV1 FEV1/FVC TLC 11/12/22 2.48,84 1.24,54 50 04/23/22 2.60,88 1.44,63 55 12/07/20 2.25,81 1.08,49 48 Pulmonary function testing today demonstrates a moderate obstructive ventilatory defect. In comparison to prior pulmonary function testing performed 04/23/22, there is a decline in forced expiratory volume in 1 second. 6 Minute walk: The patient saturates 100% on room air at rest. The patient walked 1270 ft in 6 minutes, and did not require supplemental oxygen with exertion. HR went from 94 to 118, and BP went mlmd968/74 to 133/74 with activity. Concluding Nadia score was 4. ASSESSMENT Ms. Scott is a pleasant 67 year old female who [facility] for GOLD2B chronic obstructive pulmonary disease. In the interval since her last evaluation, she developed COVID19 pneumoniaand was treated in the outpatient setting with Molnupirvir, Azithromycin, and a Medrol Dosepak. Herpulmonary function testing today demonstrates a significant decline in forced expiratory volume in 1 second, which may be related to her recent COVID19 infection. PLAN GOLD2B Chronic obstructive pulmonary disease (COPD). It's possible that her decline on pulmonary function testing is secondary to recent COVID19 infection. As such, we will obtain a 2 view chest X-ray as stated below. Given no other recent COPD exacerbations, we will not arnold her current inhaler regimen which includes Anoro 1 puff daily and as need Albuterol rescue inhaler. If her obstructive ventilatory defect were to worsen or she began to develop frequent exacerbations, we could consider initiating triple inhaler therapy with either Trelegy or Breztri. Cough. The patient's cough was preciptated by COVID19, but has not entirely resolved 6 weeks after her infection. We will obtain a 2 view chest radiographic to further evaluate. If her cough does notimprove in the next 2 weeks, we recommend she call the [facility]. Lung cancer screening. The patient's annual low dose CT Chest for lung cancer screening should be obtained in April 2023. Healthcare maintenance. The patient is up to date on her COVID19, Influenza, and Pneumococcal vaccines. Return to clinic in 6 months with repeat spirometry and 6 minute walk. ADDENDUM CXR pending. Sridhar Hadley MD Pulmonary and Critical Care, PGY-4 Cosigned by Conner Vale MD at 11/13/2022 11:56 AM CDT Associated attestation - Conner Vale MD - 11/13/2022 11:56 AM CDT I have seen and examined the patient. I agree with the findings and plan of care as documented in the resident/fellow's note. I have reviewed and edited the note for content and accuracy. documented in this encounter Plan of Treatment Scheduled Procedures Name Priority Associated Diagnoses Date/Ti me COLONOSCOPY Encounter for screening colonoscopy COLONOSCOPY Encounter for screening colonoscopy documented as of this encounter Results * Pulmonary Function Test - (12/02/2023 11:24 AM CDT) FVC PRE 2.77 [facility] FVC %PRE PRED 96 % [facility] FEV1 PRE 1.64 [facility] FEV1 %PRE PRED 73 % [facility] FEV1/FVC PRE 59.2 % [facility] Anatomical Region Laterality Modality PFT 12/02/2023 10:5 [...] and %HbO2 is age dependent. However, the [facility] Pulmonary Function Laboratory defines hypoxemia as a PO2 <55 or a %HbO2 <89. Narrative 12/03/2023 11:04 AM CDT Table formatting from the original result was not included. [facility] Division of Pulmonary & Critical Care Medicine [address] [place] [address]; [address] [address]; [place], [place] [address]; [phone] Pulmonary Function Laboratory Pulmonary Stress Test Simple/Oxygen [...] Work [distance (m) x body wt (kg)]: 61389 kg.m (normal >60,000kg.m) Oxygen required to maintain [...] with the written final report. PFT performed at:[place] [facility]- [facility] Procedure:->Spirometry Procedure:->Oxygen Assessment Titration Pulmonary Function Test Interpretation SPIROMETRY: There is a decrease in expiratory airflow at all lung volumes. FLOW VOLUME LOOPS: The inspiratory loop is normal. Conner Vale MD PFT ORDERABLES Final Result * CT Chest WO Contrast (07/01/2023 8:50 AM CORRUGATED SHEET MATERIAL SHEETER) Anatomical Region Laterality Modality Body N/A Computed Tomogra phy 07/01/2023 9:10 AM CORRUGATED SHEET MATERIAL SHEETER Impressions 07/01/2023 9:15 AM CORRUGATED SHEET MATERIAL SHEETER No suspicious pulmonary nodules. ??Mild emphysema. Dictated by: Isabel Hadley MD The radiology attending physician has personally reviewed this study, and had reviewed and/or edited this written report and agrees with it. Electronically signed by: Roberto Coon M.D. Narrative 07/01/2023 9:15 AM CORRUGATED SHEET MATERIAL SHEETER EXAMINATION: ??Computed tomography of the chest without [...] Vale MD IMG CT PROCEDURES Final Result * XR Chest Pa Lateral 2 Views [...] AM T: ??11/24/2022 8:40 AM Report ID: [id number] Reading Location: ??[id number] Procedure Note Rogelio Burton MD - 11/24/2022 [...] Rogelio Way M.D. RL: MORIS Report ID: [id number] Reading Location: [id number] Conner Vale MD IMG XR PROCEDURES Final Result documented in this encounter Visit Diagnoses Diagnosis Chronic obstructive pulmonary disease with acute lower respiratory infection (HCC)- Primary COVID Chronic obstructive pulmonary disease with acute lower respiratory infection (HCC) Chronic obstructive pulmonary disease with acute lower respiratory infection (HCC) COVID Chronic obstructive pulmonary disease with acute lower respiratory infection (HCC) COVID documented in this encounter Discontinued Medications Medication Sig Discontinue Reason Start Date End Da te predniSONE (DELTASONE) 10 mg tabletIndications:Anti-inf lammatory 6 tab x 3d, 5 tab x 3d, 4 tab x 3d, 3 tab x 3d, 2 tab x 3d, 1 tab x 3d Therapy completed 10/09/2022 11/12/2022 documented as of this encounter Care Teams Press Leader Relationship Specialty Start Date End Date Bull Taveras MD [address] [address] PCP - General Internal Medicine 08/24/20 Nahomi Boyce, RN Registered Nurse Pulmonary Disease 11/12/22 documented as of this encounter
--- OUTSIDE RECORDS SUMMARY | 2024-07-14 22:33 | XMS_ITS | Encounter Summary ---
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 will cover Flovent or Arnuity Ellipta. Notified Dr. Vale. Prescription changed to Flovent 44mcg. 2 puffs bid x14d and sent to [facility] pharmacy. documented in this encounter Plan of Treatment Scheduled Procedures Name Priority Associated Diagnoses Date/Ti de COLONOSCOPY Encounter for screening colonoscopy COLONOSCOPY Encounter for screening colonoscopy documented as of this encounter Visit Diagnoses Not on filedocumented in this encounter Care Teams Liquor Gallery Operator Relationship Specialty Start Date End Date Bull Taveras MD [address] [address] PCP - General Internal Medicine 08/24/20 Nahomi Boyce, RN Registered Nurse Pulmonary Disease 11/12/22 documented as of this encounter
--- OUTSIDE RECORDS SUMMARY | 2024-07-14 22:33 | XMS_ITS | Encounter Summary ---
Author Organization [facility] Address [address] [place] [address] Phone Care Team Providers Care Dye Machine Operator Name Role Phone Bull Taveras MD Primary Care Provider [phone] Reason for Visit * Reason Onset Date Comments DME order 09/26/2022 Encounter Details Date Type Department Care Team (Late st Contact Info) Description 09/26/2022 Telephone [facility] [address] [facility] 6th [address] [place] [address] Michelle Truong RN DME order Social History Tobacco Use Types Packs/Day Years Used Date Smoking Tobacco: Former Cigarettes Q uit: 12/13/2019 Smokeless Tobacco: Never Comments Unknown Sex and Gender Information Value Date Recorded Sex Assigned at Not on file 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 -------Fax Transmission Report------- To: Recipient at [phone] Subject: DME order and note Result: The transmission was successful. Explanation: All Pages Ok Pages Sent: 8 Connect Time: 6 minutes, 3 seconds Transmit Time: 09/26/2022 11:20 Transfer Rate: 9600 Status Code: 0000 Retry Count: 0 Job Id: [id number] Unique Id: [id number] Fax Line: 16 Fax Coater Smoking Pipe: [id number] * Telephone Encounter - Michelle Truong RN - 09/26/2022 11:18 AM CDT ----- Message from Sonia Conway MD PhD sent at 09/26/2022 11:00 AM CDT ----- Regarding: Order I have written an Epic an order for this patient to be sent to the DME. Thanks, R documented in this encounter Plan of Treatment Scheduled Procedures Name Priority Associated Diagnoses Date/Ti me COLONOSCOPY Encounter for screening colonoscopy COLONOSCOPY Encounter for screening colonoscopy documented as of this encounter Visit Diagnoses Not on filedocumented in this encounter Care Teams Dye Machine Operator Relationship Specialty Start Date End Date Bull Taveras MD [address] [place] [address] PCP - General Internal Medicine 08/24/20 documented as of this encounter
--- OUTSIDE RECORDS SUMMARY | 2024-07-14 22:33 | XMS_ITS | Encounter Summary ---
Author Organization [facility] Address [address] [place] [address] Phone Care Team Providers Care Director Of Product Management Name Role Phone Bull Taveras MD Primary Care Provider [phone] Nahomi Boyec RN Unavailable Unavailabl e Encounter Details Date Type Department Care Team (Late st Contact Info) Description 11/27/2022 Orders Only [facility] Pulmonary [address] [facility] Advanced Medicine 8th [place] [address] [place] [address] Conner Vale MD [address] [place] [address] Social History Tobacco Use Types [...] on file 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 Do not swallow. 1 each 11/27/2022 11/27/2022 documented in this encounter Plan of Treatment Scheduled Procedures Name Priority Associated Diagnoses Date/Ti me COLONOSCOPY Encounter for screening colonoscopy COLONOSCOPY Encounter for screening colonoscopy documented as of this encounter Visit Diagnoses Not on filedocumented in this encounter Care Teams Director Of Product Management Relationship Specialty Start Date End Date Bull Taveras MD [address] [address] PCP - General Internal Medicine 08/24/20 Nahomi Boyce, RN Registered Nurse Pulmonary Disease 11/12/22 documented as of this encounter
--- OUTSIDE RECORDS SUMMARY | 2024-07-14 22:33 | XMS_ITS | Encounter Summary ---
Author Organization [facility] Address [address] [place] [address] Phone Care Team Providers Care Assurance Officer Name Role Phone Bull Taveras MD Primary Care Provider [phone] Nahomi Boyce RN Unavailable Unavailabl e Encounter Details Date Type Department Care Team (Late st Contact Info) Description 02/07/2023 Orders Only [facility] Nephrology [address] Advanced Medicine 5th [place] [address] [place] [address] Rafael Allred MD [address] [facility] [address] [place] [address] Essential hypertension (Primary Dx); Stage 3a chronic kidney disease (HCC); DERICK (renal osteodystrophy); Encounter for routine adult health examination with abnormal findings Social History Tobacco Use Types Packs/Day Years [...] on file 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 Gender Identity Not on file Sexual Orientation Straight 03/05/2021 1: 44 PM CDT documented as of this encounter Plan of Treatment Scheduled Procedures Name Priority Associated Diagnoses Date/Ti me COLONOSCOPY Encounter for screening colonoscopy COLONOSCOPY Encounter for screening colonoscopy documented as of this encounter Procedures Procedure Name Priority Date/Time Associated Diagnosis Comments URINALYSIS AND REFLEX TO MICROSCOPIC Routine 02/17/2023 9:40 AM CDT Essential hypertension Stage 3a chronic kidney disease (HCC) DERICK (renal osteodystrophy) Encounter for routine adult health examination with abnormal findings CBC WITH AUTO DIFFERENTIAL Routine 02/17/2023 9:40 AM CDT Essential hypertension Stage 3a chronic kidney disease (HCC) DERICK (renal osteodystrophy) Encounter for routine adult health examination with abnormal findings RENAL FUNCTION PANEL Routine 02/17/2023 9:40 AM CDT Essential hypertension Stage 3a chronic kidney disease (HCC) DERICK (renal osteodystrophy) Encounter for routine adult health examination with abnormal findings documented in this encounter Results * Urinalysis reflex to microscopic (02/17/2023 9:40 AM CDT) Specific [place] 1.011 1.005 - 1.030 [facility] - 01 pH, ur 7.0 5.0 - 7.5 [facility] - 01 Color, ur Yellow Yellow [facility] - 01 Appearance, ur Clear Clear [facility] - 01 Leukocyte esterase, ur Negative Negative [facility] - 01 Protein, ur Negative Negative/Tra ce [facility] - 01 Glucose, ur Negative Negative [facility] - 01 Ketones, ur Negative Negative [facility] - 01 Blood, ur Negative Negative [facility] - 01 Bilirubin, ur Negative Negative [facility] - 01 Urobilinogen, quant, ur 0.2 0.2 - 1.0 mg/dL [facility] - 01 Nitrites, ur Negative Negative [facility] - 01 Urinalysis, microscopic exam Comment [facility] - 01 Comment:Microscopic not evaristo cated and not performed. Urine 02/17/2023 9:40 AM CDT 02/17/2023 Narrative [facility] - 02/18/2023 12:06 AM CDT Performed at: ?? - [facility] [address], [place], [place] ??[id number] Supervisor Reclamation: Singh Chavez PhD, Phone: ??[phone] us Rafael Allred MD LAB URINE ORDERABLES Final Re sult [facility] - 01 * CBC with auto differential (02/17/2023 9:40 AM CDT) WBC 7.0 3.4 - 10.8 x10E3/uL [facility] - 01 RBC 4.36 3.77 - 5.28 x10E6/uL [facility] - 01 Hgb 12.7 11.1 - 15.9 g/dL [facility] - 01 Hct 38.4 34.0 - 46.6 % [facility] - 01 MCV 88 79 - 97 fL [facility] - 01 MCH 29.1 26.6 - 33.0 pg [facility] - 01 MCHC 33.1 31.5 - 35.7 g/dL [facility] - 01 Rdw 12.7 11.7 - 15.4 % [facility] - 01 Platelets 324 150 - 450 x10E3/uL [facility] - 01 Neutrophils pct 53 Not Estab. % [facility] - 01 Lymphs pct 30 Not Estab. % [facility] - 01 Monocytes pct 9 Not Estab. % [facility] - 01 Eosinophils pct 6 Not Estab. % [facility] - 01 Basophil pct 2 Not Estab. % [facility] - 01 Neutrophil abs 3.7 1.4 - 7.0 x10E3/uL [facility] - 01 Lymphs (Absolute) 2.1 0.7 - 3.1 x10E3/uL [facility] - 01 Monocyte abs 0.6 0.1 - 0.9 x10E3/uL [facility] - 01 Eosinophils, abs 0.4 0.0 - 0.4 x10E3/uL [facility] - 01 Basophils, abs 0.1 0.0 - 0.2 x10E3/uL [facility] - 01 Immature Granulocytes 0 Not Estab. % [facility] - 01 Immature Grans (Abs) 0.0 0.0 - 0.1 x10E3/uL [facility] - 01 Blood 02/17/2023 9:40 AM CDT 02/17/2023 Narrative [facility] - 02/18/2023 12:06 AM CDT Performed at: ??01 - [facility] [address] ??[id number] Supervisor Reclamation: Singh Chavez PhD, Phone: ??[phone] Rafael Allred MD LAB BLOOD ORDERABLES Final Re sult [facility] * (ABNORMAL) Renal function panel (02/17/2023 9:40 AM CDT) Pathologist [facility] Glucose 106(H) 70 - 99 mg/dL [facility] - 01 BUN 25 8 - 27 mg/dL [facility] - 01 Creatinine, Serum 1.48(H) 0.57 - 1.00 mg/dL [facility] - 01 eGFR 38(L) >59 mL/min/1.7 3 [facility] - 01 BUN/creat ratio 17 12 - 28 [facility] - 01 Sodium 138 134 - 144 mmol/L [facility] - 01 Potassium, sr 4.6 3.5 - 5.2 mmol/L [facility] - 01 Chloride 103 96 - 106 mmol/L [facility] - 01 CO2 23 20 - 29 mmol/L [facility] - 01 Calcium 9.7 8.7 - 10.3 mg/dL [facility] - 01 Phosphorus, sr 3.5 3.0 - 4.3 mg/dL [facility] - 01 Albumin 4.4 3.9 - 4.9 g/dL [facility] - 01 Blood 02/17/2023 9:40 AM CDT 02/17/2023 Narrative [facility] - 02/18/2023 4:08 AM CDT Performed at: ??01 - [facility] [address] ??[id number] Supervisor Reclamation: Singh Chavez PhD, Phone: ??[phone] us Rafael Allred MD LAB BLOOD ORDERABLES Final Re sult [facility] - 01 documented in this encounter Visit Diagnoses Diagnosis Essential hypertension- Primary Unspecified essential hypertension Stage 3a chronic kidney disease (HCC) DERICK (renal osteodystrophy) Renal osteodystrophy Encounter for routine adult health examination with abnormal findings documented in this encounter Care Teams Assurance Officer Relationship Specialty Start Date End Date Bull Taveras MD [address] [address] PCP - General Internal Medicine 08/24/20 Nahomi Boyce, RN Registered Nurse Pulmonary Disease 11/12/22 documented as of this encounter
--- OUTSIDE RECORDS SUMMARY | 2024-07-14 22:33 | XMS_ITS | Encounter Summary ---
Author Organization [facility] Address [address] [place] [address] Phone Care Team Providers Care Paper Cup Handle Machine Operator Name Role Phone Bull Taveras MD Primary Care Provider [phone] Nahomi Boyce RN Unavailable Unavailabl e Reason for Referral * Procedure (Routine) - Closed Specialty Diagnoses / Procedures Referred By Grecia paulino Referred To Contact Diagnoses Chronic obstructive pulmonary disease, unspecified COPD type (HCC) Chronic cough Procedures Pulmonary Function Test -[facility]; Spirometry, Oxygen Assessment Titration Conner Vale MD [address] [facility] [address] [place] [address] Phone: tel: fax: Referral ID Status Reason Start Date Expiration Date Visits Re quested Visits Authorized [id number] Closed 04/23/2022 05/23/2023 1 1 Reason for Visit * Procedure (Routine) - Closed Specialty Diagnoses / Procedures Referred By Grecia paulino Referred To Contact Diagnoses Chronic obstructive pulmonary disease, unspecified COPD type (HCC) Chronic cough Procedures Pulmonary Function Test -[facility]- [facility]; Spirometry, Oxygen Assessment Titration Conner Vale MD [address] [facility] [address] [place] [address] Phone: tel: fax: Referral ID Status Reason Start Date Expiration Date Visits Re quested Visits Authorized [id number] Closed 04/23/2022 05/23/2023 1 1 Encounter Details Date Type Department Care Team (Latest Contact Info) Description 11/12/2022 3:09 PM CDT Hospital Encounter [facility] PFT Lab [address] [facility] [address] [place] [address] Chronic obstructive pulmonary disease, unspecified COPD type (HCC); Chronic cough Social History Tobacco Use Types Packs/Day [...] on file 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 FVC %PRE PRED 84 % [facility] FEV1 PRE 1.[address] [facility] FEV1 %PRE PRED 54 % [facility] FEV1/FVC PRE 50.0 % [facility] Anatomical Region Laterality Modality PFT 11/12/2022 3:12 PM CDT Narrative 11/17/2022 8:25 PM CDT Table formatting from the original result was not included. [facility] Division of Pulmonary & Critical Care Medicine [address] [place] [address]; [address] [facility]; [place], [place] ??[address]; [phone] Pulmonary Function Laboratory Pulmonary Stress Test Simple/Oxygen Assessment Patient: Lisa Scott Date: No visit date found. : 1955 Ht: 64.50 IN Wt: 197 LBS Time (min) Distance (ft)/ Piña O2 L/M SpO2 HR Nadia* BP FEV1 % Pred Rest: ??RA 100 94 0 115/74 1.24 54 % ? Walk/Bike: 1 ??RA 99 104 0.5 ? 2 ??RA 96 106 2 ? 3 ??RA 96 112 3 ? 4 ??RA 94 115 3 ? 5 ??RA 96 118 3 ? 6 min 0 sec ??RA 96 116 4 ? Recovery: 1 ??RA 96 96 2 133/67 1.17 51% 3 ?*Nadia rate of perceived exertion (1-10 dyspnea scale) ??Tyler, CHEST 2003; 123:1408 Walk Test Summary: Six Minute Walk Distance: 1270 ft Six-minute Walk Work [distance (m) x body wt (kg)]: 79065 kg.m (normal >60,000kg.m) Oxygen required to maintain SpO2 greater than 90% during six minutes of walkin L/M Comments: Interpretation: Breathing room air, SpO2 is normal at rest and during exercise sufficient to increase pulse from 94 to 118 b/min, SpO2 falls but remains normoxemic . On this basis, SpO2 is adequate at rest breathing room air and while walking breathing room air. This level of exercise is associated with no significant change of FEV1. ?? Conner Vale M.D. By signing this report, the attending pulmonary physician certifies that he/she has personally reviewed and interpreted the graphic and numerical data associated with this pulmonary function study and has reviewed and /or edited a preliminary draft report and agrees with the written final report. 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
--- OUTSIDE RECORDS SUMMARY | 2024-07-14 22:33 | XMS_ITS | Encounter Summary ---
Author Organization [facility] Address [address] [place] [address] Care Team Providers Care Lithographers Printer Name Role Phone Bull Taveras MD Primary Care Provider [phone] Nahomi Boyce RN Unavailable Unavailabl e Encounter Details Date Type Department Care Team (Latest Contact Info) Description 06/16/2023 12:58 PM SPECIMEN COLLECTOR - 06/16/2023 11:59 PM SPECIMEN COLLECTOR Hospital Encounter [facility] [address] [place] [address] Right wrist pain Discharge Disposition: Discharge to home or self [...] on file 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 Dictated by: Alex Rai MD The radiology attending physician has personally reviewed this study, and had reviewed and/or edited this written report and agrees with it. Electronically signed by: Ren Magaña M.D. Narrative 06/16/2023 5:16 PM SPECIMEN COLLECTOR EXAMINATION: XR WRIST RIGHT 3 OR MORE [...] signed by: Ren Magaña M.D. Patti FIGUEROA IMLona XR PROCEDURES F inal Result documented in this encounter Visit Diagnoses Diagnosis Right wrist pain Pain in joint, forearm documented in this encounter Care Teams Lithographers Printer Relationship Specialty [place] [address] [place] [address] [address] [place] [address] PCP - General Internal Medicine 08/24/20 Nahomi Boyce, RN Registered Nurse Pulmonary Disease 11/12/22 documented as of this encounter
--- OUTSIDE RECORDS SUMMARY | 2024-07-14 22:34 | XMS_ITS | Encounter Summary ---
Author Organization [facility] Address [address] [place] [address] Care Team Providers Care Scroll Assembler Name Role Phone Bull Taveras MD Primary Care Provider [phone] Encounter Details Date Type Department Care Team (Latest Contact Info) Description 09/10/2021 3:22 PM SEISMIC SURVEY ASSISTANT - 09/10/2021 11:59 PM SEISMIC SURVEY ASSISTANT Hospital Encounter [facility] [address] [place] [address] Discharge Disposition: Discharge to home or self care Social History Tobacco Use Types Packs/Day Years Used Date Smoking Tobacco: Former Cigarettes Q uit: 12/13/2019 Smokeless Tobacco: Never Comments Unknown Sex and Gender Information Value Date Recorded Sex Assigned at Not on file 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 Gender Identity Not on file Sexual Orientation Straight 03/05/2021 1: 44 PM CDT documented as of this encounter Medications at Time of Discharge cetirizine (ZyrTEC) 10 mg tablet Take 1 tablet (10 mg total) by mouth daily [employer] [facility] Allergy cholecalciferol (VITAMIN D-3) 25 mcg (1,000 unit) tabletIndications: CKD Take 1 tablet (1,000 Units total) by mouth daily 30 tablet 11 03/27/2021 calcium carbonate (OS-SHERLEY) 1,250 mg (500 mg elemental) tabletIndications: osteopenia Take 2 tablets (2,500 mg total) by mouth daily 60 tablet 11 08/07/2021 3 acetaminophen (TYLENOL) 500 mg tablet Take 500 mg by mouth every 6 (six) hours as needed for pain 2 albuterol (PROAIR RESPICLICK) 90 mcg/actuation inhaler Inhale 2 puffs every 6 (six) hours as needed for wheezing 1 Inhaler 11 07/18/2020 2 Anoro Ellipta 62.5-25 mcg/actuation blister with device Inhale 1 puff by mouth once daily 60 each 5 06/20/2021 2 aspirin 81 mg enteric coated tablet Take 325 mg by mouth daily 2 atorvastatin (LIPITOR) 10 mg tabletIndications: Stage 3a chronic kidney disease (HCC) Take 1 tablet (10 mg total) by mouth nightly 30 tablet 11 08/07/2021 2 chlorthalidone 25 mg tabletIndications: Essential hypertension Take 0.5 tablets (12.5 mg total) by mouth daily 15 tablet 11 08/07/2021 3 diltiazem (TIAZAC) 120 mg 24 hr capsule Take 120 mg by mouth every morning 08/25/2021 2 Eliquis 5 mg tablet Take 5 mg by mouth every 12 (twelve) hours 08/25/2021 2 lisinopriL (PRINIVIL,ZESTRIL) 10 mg tablet Take 1 tablet (10 mg total) by mouth daily 90 tablet 1 03/20/2021 2 documented as of this encounter Discharge Disposition Disposition Code Departure Means Destination Discharge to home or self care documented in this encounter Plan of Treatment Scheduled Procedures Name Priority Associated Diagnoses Date/Ti me COLONOSCOPY Encounter for screening colonoscopy COLONOSCOPY Encounter for screening colonoscopy documented as of this encounter Procedures Procedure Name Priority Date/Time Associated Diagnosis Comments US TRANSFER OF OUTSIDE FILMS Routine 09/10/2021 3:22 PM SEISMIC SURVEY ASSISTANT Diagnosis unknown documented in this encounter Results * US Outside Reference (09/10/2021 3:22 PM SEISMIC SURVEY ASSISTANT) Impressions [facility] - 09/10/2021 3:22 PM SEISMIC SURVEY ASSISTANT These images are for Reference purposes only and have not been reviewed by [facility] Radiology. ??There will be no report generated by a [facility] Radiologist. Narrative [facility] - 09/10/2021 3:22 PM SEISMIC SURVEY ASSISTANT EXAMINATION: ??Images For Reference Purposes Only us Kalia Mcconnell MD IMG US PROCEDURES Fi nal Result [facility] documented in this encounter Visit Diagnoses Not on filedocumented in this encounter Care Teams Scroll Assembler Relationship Specialty Start Date End Date Bull Taveras MD [address] [address] PCP - General Internal Medicine 08/24/20 documented as of this encounter
--- OUTSIDE RECORDS SUMMARY | 2024-07-14 22:34 | XMS_ITS | Encounter Summary ---
Author Organization [facility] Address [address] [place] [address] Phone Care Team Providers Care Heel Sorter Name Role Phone Bull Taveras MD Primary Care Provider [phone] Reason for Visit * Consultation (Routine) - Closed Specialty Diagnoses / Procedures Referred By Contac t Referred To Contact Cardiology Diagnoses Essential hypertension Paroxysmal atrial fibrillation (CMS/HCC) (HCC) Kalia Mcconnell MD Phone: tel: fax: [facility] (All Locations) Referral ID Status Reason Start Date Expiration Date V isits Requested Visits Authorized [id number] Closed Specialty Services Required 02/07/2022 03/09/2023 4 4 Encounter Details Date Type Department Care Team (Late st Contact Info) Description 02/12/2022 10:45 AM CDT Office Visit 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 Gender Identity Not on file Sexual Orientation Straight 03/05/2021 1: 44 PM CDT documented as of this encounter Last Filed Vital Signs Vital Sign Reading Time Taken Comments Blood Pressure 147/83 02/12/2022 10:49 AM CDT Pulse 75 02/12/2022 10:49 AM CDT Temperature - - Respiratory Rate - - Oxygen Saturation 97% 02/12/2022 10:49 AM CDT Inhaled Oxygen Concentration - - Weight 88.2 kg (194 lb 6.4 oz) 02/12/2022 10:49 AM CDT Height 162.6 cm (5' 4 ) 02/12/2022 10:49 AM CDT Body Mass Index 33.37 02/12/2022 10:49 AM CDT documented in this encounter Progress Notes * Kalia Mcconnell MD - 02/12/2022 10:45 AM CDT Images from the original note were not included. Cardiology Return Clinic Visit Visit Date: 02/16/22 Patient Diagnosis List 1. Paroxysmal Atrial Fibrillation 2. Hypertension 3. Obstructive Sleep Apnea 4. Chronic kidney disease 5. Hyperlipidemia Dear Bull Taveras MD We had the pleasure of seeing Lisa Scott at the [facility] at [facility] in [place]. As you recall, she is a pleasant 67 y.o. female that we are seeing for paroxysmal atrial fibrillation The patient does have a history of paroxysmal atrial fibrillation. She denies any significant symptoms of palpitations. She continues to remain adherent to diltiazem and is anticoagulated with Eliquis for CVA prophylaxis. She denies any bleeding concerns at this time. She states that she is adherent to her CPAP machine. She otherwise continues to do well without any chest pain, pressure, dyspnea,dyspnea on exertion, orthopnea, or PND. She denies any palpitations. ROS: As her HPI, otherwise all other review of systems reviewed and negative Meds Current Outpatient Medications: ??? albuterol (PROAIR RESPICLICK) 90 mcg/actuation inhaler, Inhale 2 puffs every 6 (six) hours as needed for wheezing, Disp: 1 each, Rfl: 3 ??? atorvastatin (LIPITOR) 10 mg tablet, Take 1 tablet (10 mg total) by mouth nightly, Disp: 30 tablet, Rfl: 11 ??? calcium carbonate (OS-SHERLEY) 1,250 mg (500 mg elemental) tablet, Take 2 tablets (2,500 mg total) by mouth daily (Patient taking differently: Take 1 tablet by mouth daily), Disp: 60 tablet, Rfl: 11 ??? cetirizine (ZyrTEC) 10 mg tablet, Take 10 mg by mouth daily Ehsanjesust Brand Allergy, Disp: , Rfl: ??? chlorthalidone 25 mg tablet, Take 0.5 tablets (12.5 mg total) by mouth daily, Disp: 15 tablet, Rfl: 11 ??? cholecalciferol (VITAMIN D-3) 25 mcg (1,000 unit) tablet, Take 1 tablet (1,000 Units total) by mouth daily, Disp: 30 tablet, Rfl: 11 ??? diltiazem (TIAZAC) 120 mg 24 hr capsule, Take 1 capsule (120 mg total) by mouth every morning, Disp: 90 capsule, Rfl: 3 ??? Eliquis 5 mg tablet, Take 1 tablet (5 mg total) by mouth every 12 (twelve) hours, Disp: 180 tablet, Rfl: 3 ??? lisinopriL (PRINIVIL,ZESTRIL) 10 mg tablet, Take 1 tablet (10 mg total) by mouth daily, Disp: 90 tablet, Rfl: 1 ??? magnesium oxide 400 mg magnesium capsule, Take by mouth, Disp: , Rfl: ??? potassium gluconate 595 mg (99 mg) tablet, 595 mg, Disp: , Rfl: ??? umeclidinium-vilanteroL (Anoro Ellipta) 62.5-25 mcg/actuation blister with device, Inhale 1 puff daily, Disp: 90 each, Rfl: 3 Objective Vitals & Physical Exam height is 162.6 cm (5' 4 ) and weight is 88.2 kg (194 lb 6.4 oz). Her blood pressure is 147/83 and her pulse is 75. Her oxygen saturation is 97%. GEN: pleasant and in NAD; alert, comfortable, [...] her symptomatology. Hypertension Her blood pressure is mildly elevated today. We will have her monitor her blood pressures and report to us if her blood pressures continue to remain elevated at home. If they are, we will plan on up titrating her regimen. In the interim, will continue chlorthalidone, lisinopril, diltiazem. Hyperlipidemia Her lipids continue to remain adequately controlled. Will continue atorvastatin 10 mg daily at thistime. Thank you for the opportunity to participate in the care of this wonderful patient. We will plan onseeing them back in 6 months time. Please do not hesitate to contact us with any questions or concerns that may arise in the interim. Kalia Mcconnell MD on 02/16/2022 at 11:21 PM Veterinary Medicine Teacherdean of student services (Cardiology) [facility] in [place] This note was written using a voice recognition system hardware device. Please note there may be variance in spelling, miko, and syntax because of the voice recognition system hardware. Therefore,not every sentence has been reviewed in its entirety. If there are any concerns about verbage aboveplease contact Kalia Mcconnell MD at [phone]. documented in this encounter Plan of Treatment Scheduled Procedures Name Priority Associated Diagnoses Date/Ti me COLONOSCOPY Encounter for screening colonoscopy COLONOSCOPY Encounter for screening colonoscopy documented as of this encounter Visit Diagnoses Diagnosis Hyperlipidemia, unspecified hyperlipidemia type- Primary Essential hypertension Unspecified essential hypertension Paroxysmal atrial fibrillation (CMS/HCC) (HCC) Atrial fibrillation documented in this encounter Orders Outpatient Referral Count Last Ordered Date Fir st Ordered Date AMB REFERRAL TO CARDIOLOGY 1 02/12/2022 documented in this encounter Care Teams Heel Sorter Relationship Specialty Start Date End Date Bull Taveras MD [address] [address] PCP - General Internal Medicine 08/24/20 documented as of this encounter
--- OUTSIDE RECORDS SUMMARY | 2024-07-14 22:34 | XMS_ITS | Encounter Summary ---
Author Organization [facility] Address [address] [place] [address] Phone Care Team Providers Care Career Manager Name Role Phone Bull Taveras MD Primary Care Provider [phone] Reason for Visit * Reason Comments Mask Fitting Encounter Details Date Type Department Care Team (Latest Contact Info) Description 10/05/2021 10:00 AM CDT Clinical Support [facility] Neuro Sleep [address] [place] [address] [address] [place] [address] DEANNE (obstructive sleep apnea) (Primary Dx) Social History Tobacco Use Types Packs/Day Years Used Date Smoking Tobacco: Former Cigarettes Q uit: 12/13/2019 Smokeless Tobacco: Never Comments Unknown Sex and Gender Information Value Date Recorded Sex Assigned at Not on file Legal Sex Female 6:46 AM DOWEL MAKER Gender Identity Not on file Sexual Orientation Straight 03/05/2021 1: 44 PM CDT documented as of this encounter Progress Notes * [facility] 10/05/2021 10:00 AM CDT PATIENT NAME: Lisa Scott DATE OF : 1955 VISIT DATE: 10/05/21 Tech Note: Patient came in today for mask fitting. Patient is having issues with headgear sliding up. Mask tried: 1. Respironics Dreamwear Nasal Mask with medium frame and small cushion and pillows 2. Eson 2 small Plan: Patient will try dreamwear at home for a couple of weeks.She will call if there are any problems orconcerns. Sonia Mejias RPSGT I was present in the clinic and immediately available for any questions/concerns on the day of thisencounter. I reviewed/edited the technologist note agree with the plan. Margaret Arana M.D. Professor of Neurology Diplomate, [place] [employer] and Neu[employer] With added qualifications in Sleep Medicine documented in this encounter Plan of Treatment Scheduled Procedures Name Priority Associated Diagnoses Date/Ti me COLONOSCOPY Encounter for screening colonoscopy COLONOSCOPY Encounter for screening colonoscopy documented as of this encounter Visit Diagnoses Diagnosis DEANNE (obstructive sleep apnea)- Primary Obstructive sleep apnea (adult) (pediatric) documented in this encounter Care Teams Career Manager Relationship Specialty Start Date End Date Bull Taveras MD [address] [address] PCP - General Internal Medicine 08/24/20 documented as of this encounter
--- OUTSIDE RECORDS SUMMARY | 2024-07-14 22:34 | XMS_ITS | Encounter Summary ---
Author Organization [facility] Address [address] [place] [address] Care Team Providers Care Machinist Mate Name Role Phone Bull Taveras MD Primary Care Provider [phone] Encounter Details Date Type Department Care Team (Late st Contact Info) Description 06/20/2022 Telephone [facility] Specialty Services [address] [place] [address] Keely Levine RN Social History Tobacco Use Types Packs/Day Years Used Date Smoking Tobacco: Former Cigarettes Q uit: 12/13/2019 Smokeless Tobacco: Never Comments Unknown Sex and Gender Information Value Date Recorded Sex Assigned at Not on file Legal Sex Female 6:46 AM ONLINE MERCHANDISING SPECIALIST Gender Identity Not on file Sexual Orientation Straight 03/05/2021 1: 44 PM CDT documented as of this encounter Miscellaneous Notes * Telephone Encounter - Brielle Peace - 06/25/2022 4:17 PM CST Left message on patient's voicemail to call back to schedule colonoscopy. 2nd call letter sent to referring physician Bull Taveras NE MERCHANDISING SPECIALIST * Telephone Encounter - Brielle Peace - 06/24/2022 7:58 AM CST Left message on patient's voicemail to call back to schedule colonoscopy. 1st call NE MERCHANDISING SPECIALIST * Telephone Encounter - Keely Levine RN - 06/20/2022 7:27 AM CST On Jan 10, 2022 a referral received from Bull Taveras MD for colonoscopy for Encounter for screening colonoscopy (Z12.11) . PROCEDURE Type: Colonoscopy Indication: Encounter for screening colonoscopy (Z12.11) Referring Physician: Bull Taveras MD Date Referred: 01/10/22 CLINICAL ASSESSMENT []COVID Screening questions [] Covid vaccination yes []BMI>45, Weight >350 lbs (if yes, note restrictions below) BMI Readings from Last 1 Encounters: 04/23/22 33.63 kg/m?? Wt Readings from Last 1 Encounters: 04/23/22 90.3 kg (199 lb) [] Patient had GI procedure/CPAP clinic/GI clinic <30 days (if Yes, no medical screening questions needed unless new clinical issues in last 30 days) Medical screening questions: BMI/Weight: NA CARDIOVASCULAR: A fib- If new (not previously known) diagnosis, needs cards or CPAP firstA-FIB Eliquis, HTN, HLD RESPIRATORY/LUNG: COPD/asthma- If severe (FEV1 < 50% of predicted) or continuous O2 no SC. and DEANNE- No SC if non-compliant with CPAPCOPD, DEANNE, CPAP RENAL/LIVER/GI: NoneCKD stage 3 BLEEDING/CLOTTING: None NEUROLOGICAL: None ENDOCRINE: None PRIOR PROCEDURE ISSUES: None SALES ENABLEMENT CONSULTANT/: NA IMPLANTS.: None Notes: DIABETIC MEDS Y/N: No/NA []Yes- Discuss diabetes medication management with prescribing physician DIALYSIS Y/N: No/NA []HD- Schedule on non-HD day, see protocol []PD- Drain PD fluid AM of procedure, if colonoscopy order AB ppx, see protocol PACEMAKER/ICD Y/N: No/NA Device info: Last documented device check: Any shocks since last cards visit (if yes must see cardiology for procedure clearance): BLOOD THINNERS/ANTICOAG/ANTIPLATELET (BESIDES ASA) Medication: Apixaban (Eliquis) Physician contacted for hold order/date sent: Hold order Method sent: Nifti Fax Date hold received: Hold instructions: CONTINUE ASPIRIN INFORMATION REQUESTED []Imaging: []Medical Progress Note/H&P []Medication list []Other: PATIENT OPTIMIZATION []Physician reviewing escalation: []CPAP: Date scheduled: Outcome : [] Location limitations: Scheduling Scheduling location limitations: [facility] no joi Media/Instructional Designer needed [x] NA Language: POA [x] NA Name: SPECIAL PROCEDURE INSTRUCTIONS NE MERCHANDISING SPECIALIST documented in this encounter Plan of Treatment Scheduled Procedures Name Priority Associated Diagnoses Date/Ti dc COLONOSCOPY Encounter for screening colonoscopy COLONOSCOPY Encounter for screening colonoscopy documented as of this encounter Visit Diagnoses Not on filedocumented in this encounter Care Teams Machinist Mate Relationship Specialty Start Date End Date Bull Taveras MD [address] [place] [address] PCP - General Internal Medicine 08/24/20 documented as of this encounter
--- OUTSIDE RECORDS SUMMARY | 2024-07-14 22:34 | XMS_ITS | Encounter Summary ---
Author Organization [facility] Address [address] [place] [address] Phone Care Team Providers Care User Experience Researcher Name Role Phone Bull Taveras MD Primary Care Provider [phone] Reason for Referral * Cardiology (Routine) - Closed Specialty Diagnoses / Procedures Referred By Contac t Referred To Contact Diagnoses Atrial fibrillation, unspecified type (HCC) Essential hypertension Hyperlipidemia, unspecified hyperlipidemia type Procedures ECG 12 lead Kalia Mcconnell MD Phone: tel: fax: [facility] (All Locations) Referral ID Status Reason Start Date Expiration Date Visits Re quested Visits Authorized [id number] Closed 09/18/2021 10/18/2022 1 1 E INSTRUCTOR Reason for Visit * Consultation (Routine) - Closed Specialty Diagnoses / Procedures Referred By Contac t Referred To Contact Cardiology Diagnoses Atrial fibrillation, unspecified type (HCC) Bull Taveras MD [address] [facility] [address] [place] [address] Phone: tel: fax: [facility] (All Locations) Referral ID Status Reason Start Date Expiration Date V isits Requested Visits Authorized [id number] Closed Specialty Services Required 08/28/2021 09/27/2022 1 1 Encounter Details Date Type Department Care Team (Late st Contact Info) Description 09/18/2021 9:00 AM DANCE INSTRUCTOR Office Visit [facility] Cardiology [address] [facility] Medical Office Building [address] [place] [address] Kalia Mcconnell MD [address] [facility] [address] [place] [address] Essential hypertension (Primary Dx); Atrial fibrillation, unspecified type (HCC); Hyperlipidemia, unspecified hyperlipidemia type Social History Tobacco Use Types Packs/Day Years Used Date Smoking Tobacco: Former Cigarettes Q uit: 12/13/2019 Smokeless Tobacco: Never Comments Unknown Sex and Gender Information Value Date Recorded Sex Assigned at Not on file Legal Sex Female 6:46 AM DANCE INSTRUCTOR Gender Identity Not on file Sexual Orientation Straight 03/05/2021 1: 44 PM CDT documented as of this encounter Last Filed Vital Signs Vital Sign Reading Time Taken Comments Blood Pressure 137/77 09/18/2021 9:12 AM DANCE INSTRUCTOR Pulse 72 09/18/2021 9:12 AM DANCE INSTRUCTOR Temperature - - Respiratory Rate - - Oxygen Saturation 98% 09/18/2021 9:09 AM DANCE INSTRUCTOR Inhaled Oxygen Concentration - - Weight 91.6 kg (202 lb) 09/18/2021 9:09 AM DANCE INSTRUCTOR Height 162.6 cm (5' 4 ) 09/18/2021 9:09 AM DANCE INSTRUCTOR Body Mass Index 34.67 09/18/2021 9:09 AM DANCE INSTRUCTOR documented in this encounter Patient Instructions * Patient Instructions* Sonya Bills RN - 09/18/2021 9:00 AM DANCE INSTRUCTOR Monitor your blood pressure at home twice daily. Send in your readings via ByReadhart in 2 weeks or call to the office at [phone] E INSTRUCTOR documented in this encounter Progress Notes * Kalia Mcconnell MD - 09/18/2021 9:00 AM CST Images from the original note were not included. Cardiology New Clinic Visit Visit Date: 09/18/21 Patient Diagnosis List 1. Paroxysmal Atrial Fibrillation 2. Hypertension 3. Obstructive Sleep Apnea 4. Chronic kidney disease 5. Hyperlipidemia Dear Nitin, Bull Rodriguez MD We had the pleasure of seeing Lisa Scott at the [facility] at [facility] in [place]. As you recall, she is a pleasant 66 y.o. female that we are seeing for paroxysmal atrial fibrillation Ms. Scott is presenting today for evaluation of proximal atrial fibrillation. The patient noted episodes of palpitations and rapid heart beat in late July or early August. She had a few episodes the lasted anywhere from 40-45 minutes. There was 1 day when she had finished a presyncope house and she noted significant palpitations. She called her daughter who is a nurse at [facility] who then recommended the patient be evaluated in the ER. The patient was noted to be in atrial fibrillation with RVR and had initial workup which was essentially unremarkable. She was given diltiazem which broke and she returned to sinus rhythm. She was initiated on systemic anticoagulation with Eliquis 5 mg b.i.d.. Since visit to the hospital, she denies any additional symptoms of palpitations. She has been able to tolerate Eliquis without any bleeding concerns. She has been able to tolerate the diltiazem without any symptoms of hypotension. In regards to her symptom profile, she may have intermittent dyspneaon exertion. She denies any chest pain or pressure on exertion. She denies any significant lower extremity edema, orthopnea, or PND. She denies any concern for bleeding at this time while on the Eliquis. She does note that she has had significant weight gain over the last 2 years up to 50 lb while she has been on chronic steroids due to concern for polymyalgia rheumatica. 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 She is able to complete all her ADLs and IADLs without any limitations. She is a nonsmoker. She drinks alcohol rarely. She denies any significant recreational drug use. Allergies/Reactions: She is allergic to Novocain, pine nuts, cinnamon Meds Current Outpatient Medications: ??? acetaminophen (TYLENOL) 500 mg tablet, Take 500 mg by mouth every 6 (six) hours as needed for pain, Disp: , Rfl: ??? Anoro Ellipta 62.5-25 mcg/actuation blister with device, Inhale 1 puff by mouth once daily, Disp: 60 each, Rfl: 5 ??? atorvastatin (LIPITOR) 10 mg tablet, Take [...] tablet, Take 10 mg by mouth daily Leonardot Brand Allergy, Disp: , Rfl: ??? chlorthalidone 25 mg tablet, Take 0.5 tablets (12.5 mg total) by mouth daily, Disp: 15 tablet, Rfl: 11 ??? cholecalciferol (VITAMIN D-3) 25 mcg (1,000 unit) tablet, Take 1 tablet (1,000 Units total) by mouth daily, Disp: 30 tablet, Rfl: 11 ??? diltiazem (TIAZAC) 120 mg 24 hr capsule, Take 120 mg by mouth every morning, Disp: , Rfl: ??? Eliquis 5 mg tablet, Take 5 mg by mouth every 12 (twelve) hours, Disp: , Rfl: ??? lisinopriL (PRINIVIL,ZESTRIL) 10 mg tablet, Take 1 tablet (10 mg total) by mouth daily, Disp: 90 tablet, Rfl: 1 ??? albuterol (PROAIR RESPICLICK) 90 mcg/actuation inhaler, Inhale 2 puffs every 6 (six) hours as needed for wheezing, Disp: 1 Inhaler, Rfl: 11 Objective Vitals & Physical Exam height is 162.6 cm (5' 4 ) and weight is 91.6 kg (202 lb). Her blood pressure is 137/77 and her pulse is 72. Her oxygen saturation is 98%. GEN: pleasant and in NAD; alert, comfortable, thought content appropriate HENT: NCAT, MMM, anicteric, no conjunctival pallor CVS: RRR, S1S2, no rubs/murmurs/gallops, no JVP appreciated, no edema PULM: non-labored, good inspiratory effort ABD: soft, NTND EXT: equal radial pulses Neuro: no abnormal movements, nonfocal exam Skin: warm, dry Studies EKG 09/18/2021 = personally reviewed in clinic illustrating normal sinus rhythm Assessment Recommendations Paroxysmal atrial fibrillation The patient was found to be in atrial fibrillation at [facility]. She is now in sinus rhythm. She is currently being anticoagulated with Eliquis 5 mg b.i.d. given her CHADS2 Vasc score 3. She has not had any repeat episodes of atrial fibrillation. She will be continued on diltiazem 120 mg daily. We have discussed the importance of risk modification. She is compliant with her CPAP machine. She will continue to work on weight loss and appropriate blood pressure control. She will notify us of her blood pressures over the next 2 weeks. Hypertension Her blood pressure is mildly elevated today. We have asked her to monitor her blood pressures over the next 2 weeks and notify us of the results. In the interim, will continue chlorthalidone, diltiazem, lisinopril, chlorthalidone. Hyperlipidemia Her lipids are relatively well controlled for a primary prevention strategy. We will continue atorvastatin 10 mg daily. Thank you for the opportunity to participate in the care of this wonderful patient. We will plan onseeing them back in 6 months time. Please do not hesitate to contact us with any questions or concerns that may arise in the interim. Kalia Mcconnell MD on 09/18/2021 at 12:54 PM Process Environmental Technicianbelt loop maker (Cardiology) [facility] in [place] This note was written using a voice recognition system hardware device. Please note there may be variance in spelling, miko, and syntax because of the voice recognition system hardware. Therefore,not every sentence has been reviewed in its entirety. If there are any concerns about verbage aboveplease contact Kalia Mcconnell MD at [phone]. E INSTRUCTOR documented in this encounter Plan of Treatment Scheduled Procedures Name Priority Associated Diagnoses Date/Ti me COLONOSCOPY Encounter for screening colonoscopy COLONOSCOPY Encounter for screening colonoscopy documented as of this encounter Procedures Procedure Name Priority Date/Time Associated Diagnosis Comments ECG 12-LEAD Routine 09/18/2021 Atrial fibrillation, unspecified type (HCC) Essential hypertension Hyperlipidemia, unspecified hyperlipidemia type documented in this encounter Results * ECG 12 lead (09/18/2021) Kalia Mcconnell MD ECG ORDERABLES Agatha l Result documented in this encounter Visit Diagnoses Diagnosis Essential hypertension- Primary Unspecified essential hypertension Atrial fibrillation, unspecified type (HCC) Hyperlipidemia, unspecified hyperlipidemia type documented in this encounter Discontinued Medications Medication Sig Discontinue Reason Start Date End Da te aspirin 81 mg enteric coated tablet Take 325 mg by mouth daily 09/18/2021 documented as of this encounter Orders Outpatient Referral Count Last Ordered Date Fir st Ordered Date AMB REFERRAL TO CARDIOLOGY 1 09/18/2021 documented in this encounter Care Teams User Experience Researcher Relationship Specialty Start Date End Date Bull Taveras MD [address] [address] PCP - General Internal Medicine 08/24/20 documented as of this encounter
--- OUTSIDE RECORDS SUMMARY | 2024-07-14 22:34 | XMS_ITS | Encounter Summary ---
Author Organization [facility] Address [address] [place] [address] Care Team Providers Care Sole Stapler Welt Name Role Phone Bull Taveras MD Primary Care Provider [phone] Reason for Visit * Reason Comments Hypertension Hyperlipidemia Encounter Details Date Type Department Care Team (Late st Contact Info) Description 09/13/2022 9:30 AM ROLL GRINDER Office Visit [facility] [address] [facility] [address] [facility] [place] [address] Bull Taveras MD [address] [facility] [address] [place] [address] Diarrhea, unspecified type (Primary Dx); Hyperlipidemia, unspecified hyperlipidemia type; Prediabetes; Essential hypertension; Thyroid nodule; Stage 3a chronic kidney disease (HCC); DEANNE (obstructive sleep apnea); Other emphysema (CMS/HCC) (HCC) Social History Tobacco Use Types Packs/Day Years Used Date Smoking Tobacco: Former Cigarettes Q uit: 12/13/2019 Smokeless Tobacco: Never Tobacco Cessation:Counseling Given: Not Answered Comments Unknown Sex and Gender Information Value Date Recorded Sex Assigned at Not on file Legal Sex Female 6:46 AM ROLL GRINDER Gender Identity Not on file Sexual Orientation Straight 03/05/2021 1: 44 PM CDT documented as of this encounter Last Filed Vital Signs Vital Sign Reading Time Taken Comments Blood Pressure 139/69 09/13/2022 9:36 AM ROLL GRINDER Pulse 77 09/13/2022 9:36 AM ROLL GRINDER Temperature - - Respiratory Rate - - Oxygen Saturation - - Inhaled Oxygen Concentration - - Weight 89.4 kg (197 lb) 09/13/2022 9:36 AM ROLL GRINDER Height 162.6 cm (5' 4 ) 09/13/2022 9:36 AM ROLL GRINDER Body Mass Index 33.81 09/13/2022 9:36 AM ROLL GRINDER documented in this encounter Ordered Prescriptions Prescription Sig Dispense Quantity Refills Last Filled Start Date End Date pneumococcal 20-valent (PREVNAR 20) 0.5 mL vaccine Inject 0.5 mL into the muscle as instructed once for 1 dose 0.5 mL 09/13/2022 documented in this encounter Progress Notes * Bull Taveras MD - 09/13/2022 9:30 AM CST Images from the original note were not included. Subjective/Objective Patient ID: Lisa Scott is a 67 y.o. female. Chief Complaint Hypertension and Hyperlipidemia Hypertension Associated symptoms include shortness of breath (chronic). Pertinent negatives include no chest pain, headaches or palpitations. Hyperlipidemia Associated symptoms include shortness of breath (chronic). Pertinent negatives include no chest pain. She does have a previous history [...] has been doing better. Pft is improved. Is considering pulmonary rehab. Past Surgical History: Procedure Laterality Date REPAIR KNEE LIGAMENT Family History Problem Relation Age of Onset Diabetes Mother Asthma Mother COPD Mother Atrial fibrillation Mother Hyperlipidemia Mother COPD Father Heart disease Father Hypertension Father Kidney disease Neg Hx Social History Tobacco Use Smoking status: Former Types: Cigarettes Quit date: 12/13/2019 Years since quittin.7 Smokeless tobacco: Never Substance and Sexual Activity Drug use: Yes Types: Alcohol Sexual activity: None Alcohol Use: Not on file Immunization History Administered Date(s) Administered Influenza, Quadrivalent, High Dose, Preservative Free, Intrr 07/03/2020 Influenza, Quadrivalent, Recombinant, Egg Free, Preservative Free, Intramuscular 07/29/2019 Influenza, Quadrivalent, Split, Preservative Free, Intramuscular 07/16/2013 Moderna SARS-CoV-2 Vaccination (12+ YRS) 08/23/2020, 09/26/2020 Pneumococcal Conjugate PCV 13 07/29/2019 Current Outpatient Medications Medication Sig albuterol HFA (Ventolin HFA) 90 mcg/actuation inhaler Inhale 2 puffs every 4 (four) hours as neededfor wheezing or shortness of breath atorvastatin (LIPITOR) 10 mg tablet Take 1 tablet (10 mg total) by mouth nightly cetirizine (ZyrTEC) 10 mg tablet Take 10 mg by mouth daily [employer] Brand Allergy chlorthalidone 25 mg tablet Take 1/2 (one-half) tablet by mouth once daily cholecalciferol (VITAMIN D-3) 25 mcg (1,000 unit) tablet Take 1 tablet (1,000 Units total) by mouthdaily diltiazem (TIAZAC) 120 mg 24 hr capsule Take 1 capsule (120 mg total) by mouth every morning Eliquis 5 mg tablet Take 1 tablet (5 mg total) by mouth every 12 (twelve) hours lisinopriL (PRINIVIL,ZESTRIL) 10 mg tablet Take 1 tablet (10 mg total) by mouth daily lysine 500 mg tablet 500 mg magnesium oxide 400 mg magnesium capsule Take by mouth pneumococcal 20-valent (PREVNAR 20) 0.5 mL vaccine Inject 0.5 mL into the muscle as instructed oncefor 1 dose potassium gluconate 595 mg (99 mg) tablet 595 mg umeclidinium-vilanteroL (Anoro Ellipta) 62.5-25 mcg/actuation blister with device Inhale 1 puff daily Review of Systems Constitutional: Negative for appetite change, fatigue, fever and unexpected weight change. HENT: Negative for ear pain, hearing loss and sore throat. Eyes: Negative for visual disturbance. Respiratory: Positive for shortness of breath (chronic). Negative for cough and wheezing. Cardiovascular: Negative for chest pain, [...] past 24 hrs: BP Pulse Height Weight 09/13/22 0936 139/69 77 162.6 cm (5' 4 ) 89.4 kg (197 lb) Wt Readings from Last 3 Encounters: 09/13/22 89.4 kg (197 lb) 04/23/22 90.3 kg (199 lb) 02/19/22 88.6 kg (195 lb 4.8 oz) Physical Exam Vitals and nursing note [...] Diagnoses and all orders for this visit: Diarrhea, unspecified type (R19.7) (Primary) - Ambulatory referral to Gastroenterology; Future Hyperlipidemia, unspecified hyperlipidemia type (E78.5) Comments: doing well. continue as before Orders: - POCT lipid panel Prediabetes (R73.03) Comments: a1c is 6.1% to continue as before Orders: - POCT glucose - POCT hemoglobin A1c Essential hypertension (I10) Thyroid nodule (E04.1) Stage 3a chronic kidney disease (HCC) (N18.31) DEANNE (obstructive sleep apnea) (G47.33) Other emphysema (CMS/HCC) (HCC) (J43.8) Comments: begin pulmonary rehab Other orders - pneumococcal 20-valent (PREVNAR 20) 0.5 mL vaccine; Inject 0.5 mL into the muscle as instructed once for 1 dose Labs Lab Results Component Value Date HGBA1C 6.1 09/13/2022 Lab Results Component Value Date POCCHOL 171 [...] A1C Lab Results Component Value Date CREATININE 1.31 (H) 02/14/2022 CREATININE 1.57 (H) 07/26/2021 CREATININE 1.26 (H) 05/05/2021 Lab Results Component Value Date COLORU Straw 05/05/2021 CLARITYU Clear 05/05/2021 GLUCOSEUR Negative 08/07/2021 BILIRUBINUR Negative 08/07/2021 KETONESU Negative 08/07/2021 SPECGRAVU 1.015 08/07/2021 BLOODUR Negative 05/05/2021 SUSSY 5.5 08/07/2021 PROTUR Negative 08/07/2021 UROBILINOGEN 0.2 08/07/2021 POCURNITRITE Negative 08/07/2021 LOTNUMBER [id number] 08/07/2021 Bull Taveras MD GRINDER documented in this encounter Plan of Treatment Scheduled Procedures Name Priority Associated Diagnoses Date/Ti me COLONOSCOPY Encounter for screening colonoscopy COLONOSCOPY Encounter for screening colonoscopy documented as of this encounter Procedures Procedure Name Priority Date/Time Associated Diagnosis Comments POCT GLUCOSE 30837 Routine 09/13/2022 9: 51 AM ROLL GRINDER Prediabetes POCT HEMOGLOBIN A1C Routine 09/13/2022 9 :51 AM ROLL GRINDER Prediabetes POCT LIPID PANEL Routine 09/13/2022 9:51 AM ROLL GRINDER Hyperlipidemia, unspecified hyperlipidemia type documented in this encounter Results * (ABNORMAL) POCT hemoglobin A1c (09/13/2022 9:51 AM ROLL GRINDER) Hemoglobin A1C, POC 6.1 % Capillary blood 09/13/2022 9 :51 AM ROLL GRINDER Bull Taveras MD POINT OF CARE TEST ORDERABLES Final Result * POCT lipid panel (09/13/2022 9:51 AM ROLL GRINDER) Cholesterol, POC 171 mg/dL HDL, POC 69 mg/dL Triglycerides, POC 114 mg/dL LDL Cholesterol POC 79 mg/dL Chol/HDL Ratio, POC 2.5 Non-HDL Cholesterol, POC 102 mg/dL Cholesterol Total, POC 171 mg/dL Capillary blood 09/13/2022 9:51 AM ROLL GRINDER Bull Taveras MD POINT OF CARE TEST ORDERABLES Final Result * (ABNORMAL) POCT glucose (09/13/2022 9:51 AM ROLL GRINDER) Glucose Blood, POC 109 mg/dL Blood 09/13/2022 9:51 AM ROLL GRINDER us Bull Taveras MD POINT OF CARE TEST ORDERABLES Final Result documented in this encounter Visit Diagnoses Diagnosis Diarrhea, unspecified type- Primary Hyperlipidemia, unspecified hyperlipidemia type Prediabetes Other abnormal glucose Essential hypertension Unspecified essential hypertension Thyroid nodule Nontoxic uninodular goiter Stage 3a chronic kidney disease (HCC) DEANNE (obstructive sleep apnea) Obstructive sleep apnea (adult) (pediatric) Other emphysema (HCC) Other emphysema documented in this encounter Care Teams Sole Stapler Welt Relationship Specialty Start Date End Date Bull Taveras MD [address] [address] PCP - General Internal Medicine 08/24/20 documented as of this encounter
--- OUTSIDE RECORDS SUMMARY | 2024-07-14 22:34 | XMS_ITS | Encounter Summary ---
Author Organization [facility] Address [address] [place] [address] Care Team Providers Care Police Communications Dispatcher Name Role Phone Bull Taveras MD Primary Care Provider [phone] Encounter Details Date Type Department Care Team (Late st Contact Info) Description 11/20/2021 Orders Only [facility] [address] [facility] [address] [facility] [place] [id number] Pooja Chapman, ZIA [address] [facility] [address] [place], [place] [id number] Social History Tobacco Use Types Packs/Day Years Used Date Smoking Tobacco: Former Cigarettes Q uit: 12/13/2019 Smokeless Tobacco: Never Comments Unknown Sex and Gender Information Value Date Recorded Sex Assigned at Not on file Legal Sex Female 6:46 AM MID LEVEL BUSINESS ANALYST Gender Identity Not on file Sexual Orientation Straight 03/05/2021 1: 44 PM CDT documented as of this encounter Ordered Prescriptions Prescription Sig Dispense Quantity Refills Last Filled Start Date End Date albuterol (PROAIR RESPICLICK) 90 mcg/actuation inhaler Inhale 2 puffs every 6 (six) hours as needed for wheezing 1 each 3 11/20/2021 2 documented in this encounter Plan of Treatment Scheduled Procedures Name Priority Associated Diagnoses Date/Ti me COLONOSCOPY Encounter for screening colonoscopy COLONOSCOPY Encounter for screening colonoscopy documented as of this encounter Visit Diagnoses Not on filedocumented in this encounter Discontinued Medications Medication Sig Discontinue Reason Start Date End Da te albuterol (PROAIR RESPICLICK) 90 mcg/actuation inhaler Inhale 2 puffs every 6 (six) hours as needed for wheezing Reorder 07/18/2020 11/20/2021 documented as of this encounter Care Teams Police Communications Dispatcher Relationship Specialty Start Date End Date Bull Taveras MD [address] [place] [address] PCP - General Internal Medicine 08/24/20 documented as of this encounter
--- OUTSIDE RECORDS SUMMARY | 2024-07-14 22:34 | XMS_ITS | Encounter Summary ---
Author Organization [facility] Address [address] [place] [address] Phone Care Team Providers Care Hot Repairman Name Role Phone Bull Taveras MD Primary Care Provider [phone] Reason for Referral * Procedure (Routine) - Closed Specialty Diagnoses / Procedures Referred By Contac t Referred To Contact Diagnoses Trigger thumb of right hand Procedures Hand / Upper Extremity Injection: R thumb A1 Odell Lopez MD Phone: tel: fax: [facility] (All Locations) Referral ID Status Reason Start Date Expiration Date Visits Re quested Visits Authorized [id number] Closed 05/17/2022 06/16/2023 1 1 * Diagnostic Imaging (Routine) - Closed Specialty Diagnoses / Procedures Referred By Contac t Referred To Contact Diagnoses Thumb pain, right Procedures X-ray wrist right 3+ views Odell Lopez MD Phone: tel: fax: [facility] Referral ID Status Reason Start Date Expiration Date Visits Re quested Visits Authorized [id number] Closed 05/17/2022 06/16/2023 1 1 Reason for Visit * Reason Comments Follow-up Follow-up Encounter Details Date Type Department Care Team (Late st Contact Info) Description 05/17/2022 9:10 AM CDT Office Visit [facility] Orthopaedic Surgery [address] [facility] [address] [place] [address] Odell Lopez MD [address] [facility] [address] [place] [address] Thumb pain, right (Primary Dx); Trigger thumb of right hand Social History Tobacco Use Types Packs/Day Years Used Date Smoking Tobacco: Former Cigarettes Q uit: 12/13/2019 Smokeless Tobacco: Never Comments Unknown Sex and Gender Information Value Date Recorded Sex Assigned at Not on file Legal Sex Female 6:46 AM VOCATIONAL EVALUATOR Gender Identity Not on file Sexual Orientation Straight 03/05/2021 1: 44 PM CDT documented as of this encounter Progress Notes * Odell Lopez MD - 05/17/2022 9:10 AM CDT Images from the original note were not included. NEW PATIENT VISIT HISTORY OF PRESENT ILLNESS Was my pleasure meeting . She is a 67-year-old right-hand dominant lady who comes in today withpredominantly pain in the right thumb. Centered over the A1 patrick. 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 Here for evaluation. PAST MEDICAL HISTORY She has a past medical history of Arthritis, Atrial fibrillation (CMS/HCC) (HCC), Chronic kidney disease, Hypertension, Obesity, and Thyroid disease. PAST SURGICAL HISTORY She has a past surgical history that includes Repair knee ligament. INITIAL REVIEW OF MEDICATIONS She has a current medication list which includes the following prescription(s): atorvastatin, calcium carbonate, cetirizine, chlorthalidone, cholecalciferol, diltiazem, eliquis, lisinopril, lysine, magnesium oxide, potassium gluconate, proair respiclick, and anoro ellipta. DRUG ALLERGIES She is allergic to novocain [procaine], pine nut, and cinnamon. SOCIAL HISTORY She reports that she quit smoking about 2 years ago. She has never used smokeless tobacco. She reports current drug use. Drug: Alcohol. No alcohol history on file. FAMILY HISTORY Her family history includes Asthma in her mother; Atrial fibrillation in her mother; COPD in her father and mother; Diabetes in her mother; Heart disease in her father; Hyperlipidemia in her mother; Hypertension in her father. REVIEW OF SYSTEMS The intake questionnaire was reviewed. No relevant new findings (noted by the patient over the pastthirty days) were recorded. PHYSICAL EXAMINATION She looks well. Looks her stated age or quite a bit younger actually.. No distress. Alert and oriented x3. Tender over the A1 patrick. No mass. No fixed flexion deformity diffuse digital swelling of the thumb. Some basal thumb joint pain with good range of motion and negative grind. IMPRESSION/TREATMENT PLAN X-rays show no evidence of arthritis whatsoever in the basal joints. Interesting given her age. We injected her trigger thumb. Odell Lopez M.D., MSc, FRCS(C) Professor [facility] * Odell Lopez MD - 05/17/2022 9:10 AM CDTAssociated Order(s): Hand / Upper Extremity Injection: R thumb A1 Post-Procedure Diagnose(s): Trigger thumb of right hand Hand / Upper Extremity Injection: R thumb A1 Performed by: Odell Lopez MD Authorized by: Odell Lopez MD Hand/Upper Extremity Injection: Verbal consent obtained?: Yes Supporting Documentation: Indications: Pain Procedure Details: Condition: trigger finger Location: Thumb Site: R thumb A1 Prep: patient was prepped using a clean technique Approach: Volar Medications: 1 mL lidocaine 10 mg/mL (1 %); 40 mg methylPREDNISolone acetate 40 mg/mL Patient tolerance: Patient tolerated the procedure well with no immediate complications documented in this encounter Plan of Treatment Scheduled Procedures Name Priority Associated Diagnoses Date/Ti me COLONOSCOPY Encounter for screening colonoscopy COLONOSCOPY Encounter for screening colonoscopy documented as of this encounter Procedures Procedure Name Priority Date/Time Associated Diagnosis Comments GA INJECTION 1 TENDON SHEATH/LIGAMENT APONEUROSIS Routine 05/17/2022 9:10 AM CDT Trigger thumb of right hand documented in this encounter Results * X-ray wrist right 3+ views (05/17/2022 10:06 AM CDT) Anatomical Region Laterality Modality Upper Extremities, Wrist Right Compute d Radiography 05/17/2022 10:3 2 AM CDT Impressions 05/17/2022 10:32 AM CDT 1. 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 Electronically signed by: Carlos Bojorquez M.D. Narrative 05/17/2022 10:32 AM CDT EXAMINATION: XR WRIST RIGHT 3 OR MORE VIEWS HISTORY: Right thumb pain FINDINGS: 4 images of the right wrist are performed without comparison. There is mild first metacarpophalangeal and carpometacarpal joint osteoarthritis. No acute fracture. Soft tissues are unremarkable. Procedure Note Carlos Bojorquez MD - 05/17/2022 EXAMINATION: XR WRIST RIGHT 3 OR MORE VIEWS HISTORY: Right thumb pain FINDINGS: 4 images of the right wrist are performed without comparison. There is mild first metacarpophalangeal and carpometacarpal joint osteoarthritis. No acute fracture. Soft tissues are unremarkable. IMPRESSION: 1. 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 Electronically signed by: Carlos Bojorquez M.D. us Odell Lopez MD IMG XR PROCEDURES Final Resul t * GA INJECTION 1 TENDON SHEATH/LIGAMENT APONEUROSIS (05/17/2022 9:10 AM CDT) Narrative Odell Lopez MD - 05/17/2022 9:10 AM CDT Odell Lopez MD ? 05/17/2022 11:35 AM Hand / Upper Extremity Injection: R thumb A1 Performed by: Odell Lopez MD Authorized by: Odell Lopez MD Hand/Upper Extremity Injection: ??Verbal consent obtained?: Yes ?? Supporting Documentation: ??Indications: ??Pain Procedure Details: ??Condition: trigger finger ?Location: ??Thumb ??Site: ??R thumb A1 ??Prep: patient was prepped using a clean technique ?Approach: ??Volar ??Medications: ??1 mL lidocaine 10 mg/mL (1 %); 40 mg methylPREDNISolone acetate 40 mg/mL ??Patient tolerance: ??Patient tolerated the procedure well with no immediate complications us Odell Lopez MD IN CLINIC/BEDSIDE ORDERABLES Final Result documented in this encounter Visit Diagnoses Diagnosis Thumb pain, right- Primary Trigger thumb of right hand Thumb pain, right documented in this encounter Administered Medications Inactive Administered Medications - up to 3 most recent administrations Medication Order MAR Action Action Date Dose Rate Site lidocaine (XYLOCAINE) 10 mg/mL (1 %) injection 1 mL 1 mL, One-Time Injection, Starting on Fri05/17/22 at 1134, For 1 dose, Indications: Administration of Local AnesthesiaIndications:Administ ration of Local Anesthesia Given 05/17/2022 11:34 AM CDT 1 mL Right Thumb methylPREDNISolone acetate (DEPO-medrol) injection 40 mg 40 mg, intra-articular, One-Time Injection, Starting on Fri05/17/22 at 1134, For 1 doseIndications:Trigger thumb of right hand Given 05/17/2022 11:34 AM CDT 40 mg Right Thumb documented in this encounter Care Teams Hot Repairman Relationship Specialty Start Date End Date Bull Taveras MD [address] [facility] [address] [place] [address] PCP - General Internal Medicine 08/24/20 documented as of this encounter
--- OUTSIDE RECORDS SUMMARY | 2024-07-14 22:34 | XMS_ITS | Encounter Summary ---
Author Organization [facility] Address [address] [place] [address] Care Team Providers Care Swahili Teacher Name Role Phone Bull Taveras MD Primary Care Provider [phone] Reason for Visit * Reason Comments Hyperlipidemia Hypertension Atrial Fibrillation Encounter Details Date Type Department Care Team (Late st Contact Info) Description 05/16/2022 12:00 PM CDT Office Visit [facility] [address] [facility] [address] [place] [address] Bull Taveras MD [address] [facility] [address] [place] [address] Essential hypertension (Primary Dx); Thyroid nodule; Stage 3a chronic kidney disease (HCC); DEANNE (obstructive sleep apnea); Hyperlipidemia, unspecified hyperlipidemia type; Paroxysmal atrial fibrillation (CMS/HCC) (HCC) Social History Tobacco Use Types Packs/Day Years Used Date Smoking Tobacco: Former Cigarettes Q uit: 12/13/2019 Smokeless Tobacco: Never Comments Unknown Sex and Gender Information Value Date Recorded Sex Assigned at Not on file 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 Subjective/Objective Patient ID: Lisa Scott is a 67 y.o. female. Chief Complaint Hyperlipidemia, Hypertension, and Atrial Fibrillation Hyperlipidemia Pertinent negatives include no chest pain or shortness of breath. Hypertension Pertinent negatives include no chest pain, headaches, palpitations or shortness of breath. Atrial Fibrillation Symptoms are negative for chest pain, dizziness, palpitations, shortness of breath and weakness. Past medical history includes atrial fibrillation and hyperlipidemia. Patient here for evaluation of atrial fibrillation. She does have a previous history of [...] has been doing better. Pft is improved. Past Surgical History: Procedure Laterality Date REPAIR KNEE LIGAMENT Family History Problem Relation Age of Onset Diabetes Mother Asthma Mother COPD Mother Atrial fibrillation Mother Hyperlipidemia Mother COPD Father Heart disease Father Hypertension Father Kidney disease Neg Hx Social History Tobacco Use Smoking status: Former Types: Cigarettes Quit date: 12/13/2019 Years since quittin.4 Smokeless tobacco: Never Substance and Sexual Activity [...] 13 07/29/2019 Current Outpatient Medications Medication Sig atorvastatin (LIPITOR) 10 mg tablet Take 1 tablet (10 mg total) by mouth nightly calcium carbonate (OS-SHERLEY) 1,250 mg (500 mg elemental) tablet Take 2 tablets (2,500 mg total) by mouth daily (Patient taking differently: Take 1 tablet by mouth daily) cetirizine (ZyrTEC) 10 mg tablet Take 10 mg by mouth daily [employer] Allergy chlorthalidone 25 mg tablet Take 0.5 tablets (12.5 [...] 595 mg (99 mg) tablet 595 mg ProAir RespiClick 90 mcg/actuation inhaler INHALE 2 PUFFS BY MOUTH EVERY 6 HOURS NEEDED FOR WHEEZING umeclidinium-vilanteroL (Anoro Ellipta) 62.5-25 mcg/actuation blister with [...] nervous/anxious. Breast: Negative for tenderness and lump(s). No data found. Wt Readings from Last 3 Encounters: 04/23/22 90.3 kg (199 lb) 02/19/22 88.6 kg (195 lb 4.8 oz) 02/12/22 88.2 kg (194 lb 6.4 oz) Physical Exam Vitals and nursing note [...] Diagnoses and all orders for this visit: Essential hypertension (I10) (Primary) Comments: bp at target, doing quite well Thyroid nodule (E04.1) Comments: stable, labs next visit Stage 3a chronic kidney disease (HCC) (N18.31) DEANNE (obstructive sleep apnea) (G47.33) Comments: uses cpap faithfully Hyperlipidemia, unspecified hyperlipidemia type (E78.5) Comments: lipid reviewed, doing well Orders: - POCT lipid panel - POCT glucose Paroxysmal atrial fibrillation (CMS/HCC) (HCC) (I48.0) Comments: doing well, on a/c Labs Lab Results Component Value Date HGBA1C 6.1 (H) 02/14/2022 Lab Results Component Value Date POCCHOL 175 05/16/2022 POCCHOL 170 01/10/2022 POCCHOL 183 09/07/2021 Lab Results Component Value Date POCHDL 69 05/16/2022 POCHDL 65 01/10/2022 POCHDL 78 09/07/2021 Lab Results Component Value Date POCLDL 83 05/16/2022 POCLDL 79 01/10/2022 POCLDL 87 09/07/2021 Lab Results Component Value Date POCTRIG 113 05/16/2022 POCTRIG 127 01/10/2022 POCTRIG 92 09/07/2021 No results found for: A1C Lab Results Component Value Date CREATININE 1.31 (H) 02/14/2022 CREATININE 1.57 (H) 07/26/2021 CREATININE 1.26 (H) 05/05/2021 Lab Results Component Value Date COLORU Straw 05/05/2021 CLARITYU Clear 05/05/2021 GLUCOSEUR Negative 08/07/2021 BILIRUBINUR Negative 08/07/2021 KETONESU Negative 08/07/2021 SPECGRAVU 1.015 08/07/2021 BLOODUR Negative 05/05/2021 SUSSY 5.5 08/07/2021 PROTUR Negative 08/07/2021 UROBILINOGEN 0.2 08/07/2021 POCURNITRITE Negative 08/07/2021 LOTNUMBER [id number] 08/07/2021 Bull Taveras MD documented in this encounter Plan of Treatment Scheduled Procedures Name Priority Associated Diagnoses Date/Ti me COLONOSCOPY Encounter for screening colonoscopy COLONOSCOPY Encounter for screening colonoscopy documented as of this encounter Procedures Procedure Name Priority Date/Time Associated Diagnosis Comments POCT GLUCOSE [id number] Routine 05/16/2022 12 :53 PM CDT Hyperlipidemia, unspecified hyperlipidemia type POCT LIPID PANEL Routine 05/16/2022 12:5 3 PM CDT Hyperlipidemia, unspecified hyperlipidemia type documented in this encounter Results * POCT glucose (05/16/2022 12:53 PM CDT) Glucose Blood, POC 94 mg/dL Blood 05/16/2022 12:5 3 PM CDT Bull Taveras MD POINT OF CARE TEST ORDERABLES Final Result * POCT lipid panel (05/16/2022 12:53 PM CDT) Cholesterol, POC 175 mg/dL HDL, POC 69 mg/dL Triglycerides, POC 113 mg/dL LDL Cholesterol POC 83 mg/dL Capillary blood 05/16/2022 1 2:53 PM CDT Bull Taveras MD POINT OF CARE TEST ORDERABLES Final Result documented in this encounter Visit Diagnoses Diagnosis Essential hypertension- Primary Unspecified essential hypertension Thyroid nodule Nontoxic uninodular goiter Stage 3a chronic kidney disease (HCC) DEANNE (obstructive sleep apnea) Obstructive sleep apnea (adult) (pediatric) Hyperlipidemia, unspecified hyperlipidemia type Paroxysmal atrial fibrillation (CMS/HCC) (HCC) Atrial fibrillation documented in this encounter Historical Medications * This list may reflect changes made after this encounter. lysine 500 mg tablet 1 tablet (500 mg total) 10/21/2023 added in this encounter Care Teams Swahili Teacher Relationship Specialty Start Date End Date Bull Taveras MD [address] [place] [id number] PCP - General Internal Medicine 08/24/20 documented as of this encounter
--- OUTSIDE RECORDS SUMMARY | 2024-07-14 22:34 | XMS_ITS | Encounter Summary ---
Author Organization [facility] Address [address] [place] [address] Care Team Providers Care Retail Banker Name Role Phone Bull Taveras MD Primary Care Provider [phone] Reason for Referral * Diagnostic Imaging (Routine) - Closed Specialty Diagnoses / Procedures Referred By Contac t Referred To Contact Diagnoses Hyperlipidemia, unspecified hyperlipidemia type Essential hypertension Thyroid nodule Stage 3a chronic kidney disease (HCC) Chronic obstructive pulmonary disease, unspecified COPD type (HCC) Paroxysmal atrial fibrillation (CMS/HCC) (HCC) Procedures Thyroid Bull Taveras MD Replaced by [facility] [address] [address] Phone: tel: fax: [address] [address] Referral ID Status Reason Start Date Expiration Date Visits Re quested Visits Authorized [id number] Closed 01/10/2022 02/09/2023 1 1 Reason for Visit * Diagnostic Imaging (Routine) - Closed Specialty Diagnoses / Procedures Referred By Contac t Referred To Contact Diagnoses Hyperlipidemia, unspecified hyperlipidemia type Essential hypertension Thyroid nodule Stage 3a chronic kidney disease (HCC) Chronic obstructive pulmonary disease, unspecified COPD type (HCC) Paroxysmal atrial fibrillation (CMS/HCC) (HCC) Procedures Thyroid Bull Taveras MD [address] [facility] [address] [place] [address] Phone: tel: fax: [facility] [address] [facility] [place] [address] Referral ID Status Reason Start Date Expiration Date Visits Re quested Visits Authorized [id number] Closed 01/10/2022 02/09/2023 1 1 Encounter Details Date Type Department Care Team (Latest Contact Info) Description 01/10/2022 2:14 PM CDT - 01/10/2022 11:59 PM CDT Hospital Encounter [facility] [address] [place] [address] Hyperlipidemia, unspecified hyperlipidemia type; Essential hypertension; Thyroid nodule; Stage 3a chronic kidney disease (HCC); Chronic obstructive pulmonary disease, unspecified COPD type (HCC); Paroxysmal atrial fibrillation (CMS/HCC) (HCC) Discharge Disposition: Discharge to home or self care Social History Tobacco Use Types Packs/Day Years Used Date Smoking Tobacco: Former Cigarettes Q uit: 12/13/2019 Smokeless Tobacco: Never Comments Unknown Sex and Gender Information Value Date Recorded Sex Assigned at Not on file 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 Gender Identity Not on file Sexual Orientation [...] 400 mg magnesium capsule Take by mouth calcium carbonate (OS-SHERLEY) 1,250 mg (500 mg elemental) tabletIndications: osteopenia Take 2 tablets (2,500 mg total) by mouth daily 60 tablet 11 08/07/2021 albuterol (PROAIR RESPICLICK) 90 mcg/actuation inhaler Inhale 2 puffs every 6 (six) hours as needed for wheezing 1 each 3 11/20/2021 2 atorvastatin (LIPITOR) 10 mg tabletIndications: Stage [...] by mouth every morning 90 capsule 3 09/18/2021 3 Eliquis 5 mg tablet Take 1 tablet (5 mg total) by mouth every 12 (twelve) hours 180 tablet 3 09/18/2021 3 lisinopriL (PRINIVIL,ZESTRIL) 10 mg tablet Take 1 tablet (10 mg total) by mouth daily 90 tablet 1 03/20/2021 2 potassium gluconate 595 mg (99 mg) tablet 1 tablet (595 mg total) 4 umeclidinium-vilan teroL (Anoro Ellipta) 62.5-25 mcg/actuation blister with device Inhale 1 puff daily 90 each 3 12/21/2021 2 documented as of this encounter Discharge Disposition Disposition Code Departure Means Destination Discharge to home or self care documented in this encounter Plan of Treatment Scheduled Procedures Name Priority Associated Diagnoses Date/Ti me COLONOSCOPY Encounter for screening colonoscopy COLONOSCOPY Encounter for screening colonoscopy documented as of this encounter Procedures Procedure Name Priority Date/Time Associated Diagnosis Comments US THYROID Schedule Routine, Read Routine (OP Routine) 01/10/2022 3:56 PM CDT Hyperlipidemia, unspecified hyperlipidemia type Essential hypertension Thyroid nodule Stage 3a chronic kidney disease (HCC) Chronic obstructive pulmonary disease, unspecified COPD type (HCC) Paroxysmal atrial fibrillation (CMS/HCC) (HCC) documented in this encounter Results * US Thyroid (01/10/2022 3:56 PM CDT) Anatomical Region Laterality Modality Head and Neck N/A Ultrasound 01/10/2022 4:08 PM CDT Impressions 01/10/2022 4:30 PM CDT 1. ??Stable right mid and left upper thyroid nodules, with previously benign cytology. 2. ??Partially visualized deep/retrosternal left inferior thyroid nodule, incompletely characterized with ultrasound. ??Consider correlation with compressive symptoms if there is concern for enlargement. ?? ACR TI-RADS recommendations TR5 (>=7 points) (risk of malignancy > 20%) >=1 cm: FNA 0.5-0.9 cm: follow-up US every year for 5 years <0.5 cm: no further evaluation TR4 (4-6 points) (risk of malignancy 5-20%) >=1.5 cm: FNA 1-1.4 cm: follow-up US in 1, 2, 3, and 5 years <1.0 cm: no further evaluation TR3 (3 points) (risk of malignancy 2-5%) >=2.5 cm: FNA 1.5-2.4 cm: follow-up US in 1, 3, and 5 years <1.5 cm: no further evaluation TR2 (2 points) and TR1 (0 points) (risk of malignancy < 2%) No FNA or follow-up US Dictated by: Channing Santamaria M.D. The radiology attending physician has personally reviewed this study, and had reviewed and/or edited this written report and agrees with it. Electronically signed by: Argenis Carmen M.D. Narrative 01/10/2022 4:30 PM CDT EXAMINATION: THYROID SONOGRAM HISTORY: ??66-year-old female with thyroid nodules. Prior Biopsy: Right mid and left upper thyroid nodule biopsy dated 05/21/2021, suggesting benign cytology. Patient Risk Factors: None Prior Ultrasound: ??Diagnostic ultrasound dated 04/30/2021 FINDINGS: The thyroid is enlarged in size. ??The left lobe of the thyroid extends below the level of the clavicle. Size right lobe: 7.9 cm craniocaudal, 2.4 cm transverse, 2.2 cm AP. Size left lobe: 9.4 cm craniocaudal, 2.3 cm transverse, 3.2 cm AP. Size isthmus: 0.3 cm AP. Estimated total number of nodules >/= 1 cm: 3 Number of spongiform nodules >/= 2 cm not described below (TR1): 0 Number of mixed cystic and solid nodules >/= 1.5 cm not described below (TR2): 0 Nodule 1: Location: Right mid Size: 2.4 cm craniocaudal by 2.2 cm transverse by 1.3 cm anteroposterior, previously 2.1 cm craniocaudal x 2.2 cm transverse x 1.4 cm AP Maximum Size: 2.4 cm Composition: Solid/almost completely solid (2) Echogenicity: Hypoechoic (2) Shape: Not taller than wide (0) Margins: Lobulated/irregular (2) Echogenic foci: Punctate echogenic foci (3) ACR TI-RADS total points: 9 ACR TI-RADS risk category: TR5 (7 or more points) ACR TI-RADS recommendation: Previously proven to be cytologically benign. ?? Nodule 2: Location: Left upper Size: 1.5 cm craniocaudal x 1.4 cm transverse x 1.3 cm AP, unchanged Maximum Size: 1.5 cm Composition: Solid/almost completely solid (2) Echogenicity: Hypoechoic (2) Shape: Not taller than wide (0) Margins: Smooth (0) Echogenic foci: Punctate echogenic foci (3) ACR TI-RADS total points: 7 ACR TI-RADS risk category: TR5 (7 or more points) ACR TI-RADS recommendation: Previously proven to be cytologically benign. ?? Additional confluent ill-defined solid and isoechoic nodules are seen in both lobes of the thyroid, especially the left inferior lobe. There is a partially visualized predominantly solid hypoechoic nodule along the deep inferior aspect of the left thyroid lobe, only seen with deep extension of the neck. ??This measures at least 2.4 cm x 1.7 cm in sagittal plane. Procedure Note Argenis Cramen MD - 01/10/2022 EXAMINATION: THYROID SONOGRAM HISTORY: 66-year-old female with thyroid nodules. Prior Biopsy: Right mid and left upper thyroid nodule biopsy dated 05/21/2021, suggesting benign cytology. Patient Risk Factors: None Prior Ultrasound: Diagnostic ultrasound dated 04/30/2021 FINDINGS: The thyroid is enlarged in size. The left lobe of the thyroid extends below the level of the clavicle. Size right lobe: 7.9 cm craniocaudal, 2.4 cm transverse, 2.2 cm AP. Size left lobe: 9.4 cm craniocaudal, 2.3 cm transverse, 3.2 cm AP. Size isthmus: 0.3 cm AP. Estimated total number of nodules >/= 1 cm: 3 Number of spongiform nodules >/= 2 cm not described below (TR1): 0 Number of mixed cystic and solid nodules >/= 1.5 cm not described below (TR2): 0 Nodule 1: Location: Right mid Size: 2.4 cm craniocaudal by 2.2 cm transverse by 1.3 cm anteroposterior, previously 2.1 cm craniocaudal x 2.2 cm transverse x 1.4 cm AP Maximum Size: 2.4 cm Composition: Solid/almost completely solid (2) Echogenicity: Hypoechoic (2) Shape: Not taller than wide (0) Margins: Lobulated/irregular (2) Echogenic foci: Punctate echogenic foci (3) ACR TI-RADS total points: 9 ACR TI-RADS risk category: TR5 (7 or more points) ACR TI-RADS recommendation: Previously proven to be cytologically benign. Nodule 2: Location: Left upper Size: 1.5 cm craniocaudal x 1.4 cm transverse x 1.3 cm AP, unchanged Maximum Size: 1.5 cm Composition: Solid/almost completely solid (2) Echogenicity: Hypoechoic (2) Shape: Not taller than wide (0) Margins: Smooth (0) Echogenic foci: Punctate echogenic foci (3) ACR TI-RADS total points: 7 ACR TI-RADS risk category: TR5 (7 or more points) ACR TI-RADS recommendation: Previously proven to be cytologically benign. Additional confluent ill-defined solid and isoechoic nodules are seen in both lobes of the thyroid, especially the left inferior lobe. There is a partially visualized predominantly solid hypoechoic nodule along the deep inferior aspect of the left thyroid lobe, only seen with deep extension of the neck. This measures at least 2.4 cm x 1.7 cm in sagittal plane. IMPRESSION: 1. Stable right mid and left upper thyroid nodules, with previously benign cytology. 2. Partially visualized deep/retrosternal left inferior thyroid nodule, incompletely characterized with ultrasound. Consider correlation with compressive symptoms if there is concern for enlargement. ACR TI-RADS recommendations TR5 (>=7 points) (risk of malignancy > 20%) >=1 cm: FNA 0.5-0.9 cm: follow-up US every year for 5 years <0.5 cm: no further evaluation TR4 (4-6 points) (risk of malignancy 5-20%) >=1.5 cm: FNA 1-1.4 cm: follow-up US in 1, 2, 3, and 5 years <1.0 cm: no further evaluation TR3 (3 points) (risk of malignancy 2-5%) >=2.5 cm: FNA 1.5-2.4 cm: follow-up US in 1, 3, and 5 years <1.5 cm: no further evaluation TR2 (2 points) and TR1 (0 points) (risk of malignancy < 2%) No FNA or follow-up US Dictated by: Channing Santamaria M.D. The radiology attending physician has personally reviewed this study, and had reviewed and/or edited this written report and agrees with it. Electronically signed by: Argenis Carmen M.D. us Bull Taveras MD IMG US PROCEDURES Final Resul t documented in this encounter Visit Diagnoses Diagnosis Hyperlipidemia, unspecified hyperlipidemia type Essential hypertension Unspecified essential hypertension Thyroid nodule Nontoxic uninodular goiter Stage 3a chronic kidney disease (HCC) Chronic obstructive pulmonary disease, unspecified COPD type (HCC) Paroxysmal atrial fibrillation (CMS/HCC) (HCC) Atrial fibrillation documented in this encounter Care Teams Retail Banker Relationship Specialty Start Date End Date Bull Taveras MD [address] [place] [id number] PCP - General Internal Medicine 08/24/20 documented as of this encounter
--- OUTSIDE RECORDS SUMMARY | 2024-07-14 22:34 | XMS_ITS | Encounter Summary ---
Author Organization [facility] Address [address] [place] [address] Care Team Providers Care Public Health Dietitian Name Role Phone Bull Taveras MD Primary Care Provider [phone] Encounter Details Date Type Department Care Team (Late st Contact Info) Description 01/24/2022 [facility] [address] [facility] [address] [place] [address] Bull Taveras MD [address] [facility] [address] [place] [address] Social History Tobacco Use Types Packs/Day Years Used Date Smoking Tobacco: Former Cigarettes Q uit: 12/13/2019 Smokeless Tobacco: Never Comments Unknown Sex and Gender Information Value Date Recorded Sex Assigned at Not on file 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 Gender Identity Not on file Sexual Orientation Straight 03/05/2021 1: 44 PM CDT documented as of this encounter Miscellaneous Notes * Telephone Encounter - Lisa Cortés MA - 01/24/2022 9:07 AM CDT Pt aware/mk * Telephone Encounter - Lisa Cortés MA - 01/24/2022 9:07 AM CDT ----- Message from Bull Taveras MD sent at 01/10/2022 4:35 PM CDT ----- Nodules are unchanged, has no compression symptoms Recheck 1 year documented in this encounter Plan of Treatment Scheduled Procedures Name Priority Associated Diagnoses Date/Ti il COLONOSCOPY Encounter for screening colonoscopy COLONOSCOPY Encounter for screening colonoscopy documented as of this encounter Visit Diagnoses Not on filedocumented in this encounter Care Teams Public Health Dietitian Relationship Specialty Start Date End Date Bull Taveras MD [address] [address] PCP - General Internal Medicine 08/24/20 documented as of this encounter
--- OUTSIDE RECORDS SUMMARY | 2024-07-14 22:34 | XMS_ITS | Encounter Summary ---
Author Organization [facility] Address [address] [place] [address] Care Team Providers Care Manager Harbor Name Role Phone Bull Taveras MD Primary Care Provider [phone] Encounter Details Date Type Department Care Team (Late st Contact Info) Description 02/27/2022 [facility] [address] [facility] [address] [place] [address] Bull Taveras MD [address] [facility] [address] [place] [address] Social History Tobacco Use Types Packs/Day Years Used Date Smoking Tobacco: Former Cigarettes Q uit: 12/13/2019 Smokeless Tobacco: Never Comments Unknown Sex and Gender Information Value Date Recorded Sex Assigned at Not on file 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 documented in this encounter Plan of Treatment Scheduled Procedures Name Priority Associated Diagnoses Date/Ti nh COLONOSCOPY Encounter for screening colonoscopy COLONOSCOPY Encounter for screening colonoscopy documented as of this encounter Visit Diagnoses Not on filedocumented in this encounter Care Teams Manager Harbor Relationship Specialty Start Date End Date Bull Taveras MD [address] [address] PCP - General Internal Medicine 08/24/20 documented as of this encounter
--- OUTSIDE RECORDS SUMMARY | 2024-07-14 22:34 | XMS_ITS | Encounter Summary ---
Author Organization [facility] Healthcare Address [address] [place] [address] Care Team Providers Care Php Engineer Name Role Phone Bull Taveras MD Primary Care Provider Reason for Referral * MRI/CAT/PET Scan (Routine) - Closed Specialty Diagnoses / Procedures Referred By Contac t Referred To Contact Radiology Diagnoses Chronic obstructive pulmonary disease, unspecified COPD type (HCC) Chronic cough Procedures CT Chest WO Contrast Conner Vale MD [address] [address] Phone: tel: fax: [address] [address] Referral ID Status Reason Start Date Expiration Date Visits Re quested Visits Authorized [id number] Closed 04/23/2022 05/23/2023 1 1 Reason for Visit * MRI/CAT/PET Scan (Routine) - Closed Specialty Diagnoses / Procedures Referred By Contac t Referred To Contact Radiology Diagnoses Chronic obstructive pulmonary disease, unspecified COPD type (HCC) Chronic cough Procedures CT Chest WO Contrast Conner Vale MD [address] [address] Phone: tel: fax: [facility] [address] [facility] [place] [address] Referral ID Status Reason Start Date Expiration Date Visits Re quested Visits Authorized [id number] Closed 04/23/2022 05/23/2023 1 1 Encounter Details Date Type Department Care Team (Latest Contact Info) Description 04/25/2022 10:05 AM CDT - 04/25/2022 11:59 PM CDT Hospital Encounter [facility] [address] [place] [address] Conner Vale MD [address] [place] [address] Chronic obstructive pulmonary disease, unspecified COPD type (HCC); Chronic cough Discharge Disposition: Discharge to home or self care Social History Tobacco Use Types Packs/Day Years Used Date Smoking Tobacco: Former Cigarettes Q uit: 12/13/2019 Smokeless Tobacco: Never Comments Unknown Sex and Gender Information Value Date Recorded Sex Assigned at Not on file 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 Gender Identity Not on file Sexual Orientation Straight 03/05/2021 1: 44 PM CDT documented as of this encounter Medications at Time of Discharge cetirizine (ZyrTEC) 10 mg tablet Take 1 tablet (10 mg total) by mouth daily [employer] Allergy cholecalciferol (VITAMIN D-3) 25 mcg (1,000 unit) tabletIndications: CKD Take 1 tablet (1,000 Units total) by mouth daily 30 tablet 03/27/2021 magnesium oxide 400 mg magnesium capsule Take by mouth calcium carbonate (OS-SHERLEY) 1,250 mg (500 mg elemental) tabletIndications: osteopenia Take 2 tablets (2,500 mg total) by mouth daily 60 tablet 08/07/2021 3 atorvastatin (LIPITOR) 10 mg tabletIndications: Stage 3a chronic kidney disease (HCC) Take 1 tablet (10 mg total) by mouth nightly 30 tablet 08/07/2021 2 chlorthalidone 25 mg tabletIndications: Essential [...] tablet 1 tablet (595 mg total) 4 ProAir RespiClick 90 mcg/actuation inhaler INHALE 2 PUFFS BY MOUTH EVERY 6 HOURS NEEDED FOR WHEEZING 1 each 3 04/23/2022 3 umeclidinium-vilan teroL (Anoro Ellipta) 62.5-25 mcg/actuation blister [...] CONTRAST Schedule Routine, Read Routine (OP Routine) 04/25/2022 10:19 AM CDT Chronic obstructive pulmonary disease, unspecified COPD type (HCC) Chronic cough documented in this encounter Results * CT Chest WO Contrast (04/25/2022 10:19 AM CDT) Anatomical Region Laterality Modality Body N/A Computed Tomogra phy 04/25/2022 10:5 0 AM CDT Impressions 04/25/2022 12:05 PM CDT No suspicious pulmonary nodule. Dictated by: Sangeetha Avilez M.D. The radiology attending physician has personally reviewed this study, and had reviewed and/or edited this written report and agrees with it. Electronically signed by: Michael Velázquez M.D. Narrative 04/25/2022 12:05 PM CDT EXAMINATION: ??Computed tomography of the chest without intravenous contrast HISTORY: Evaluate for pulmonary nodules TECHNIQUE: ??Transaxial computed tomographic images of the chest were obtained without intravenous contrast according to the standard protocol. COMPARISON: 01/09/2021 FINDINGS: ?? No suspicious pulmonary nodule. Extensive emphysema throughout the lungs. Right upper lobe granuloma. No pleural effusion or pneumothorax. Unchanged bronchial wall thickening with mild dilatation. No thoracic lymphadenopathy. Heart size within normal limits. No pericardial effusion. Coronary artery atherosclerotic calcifications. Normal esophagus. Thoracic aorta is mildly atherosclerotic. Thyroid goiter is noted. Evaluation of the upper abdomen shows no acute upper abdominal finding. No suspicious osseous lesion. Procedure Note Michael Velázquez MD - 04/25/2022 EXAMINATION: Computed tomography of the chest without intravenous contrast HISTORY: Evaluate for pulmonary nodules TECHNIQUE: Transaxial computed tomographic images of the chest were obtained without intravenous contrast according to the standard protocol. COMPARISON: 01/09/2021 FINDINGS: No suspicious pulmonary nodule. Extensive emphysema throughout the lungs. Right upper lobe granuloma. No pleural effusion or pneumothorax. Unchanged bronchial wall thickening with mild dilatation. No thoracic lymphadenopathy. Heart size within normal limits. No pericardial effusion. Coronary artery atherosclerotic calcifications. Normal esophagus. Thoracic aorta is mildly atherosclerotic. Thyroid goiter is noted. Evaluation of the upper abdomen shows no acute upper abdominal finding. No suspicious osseous lesion. IMPRESSION: No suspicious pulmonary nodule. Dictated by: Sangeetha Avilez M.D. The radiology attending physician has personally reviewed this study, and had reviewed and/or edited this written report and agrees with it. Electronically signed by: Michael Velázquez M.D. Conner Vale MD IM CT PROCEDURES Final Result documented in this encounter Visit Diagnoses Diagnosis Chronic obstructive pulmonary disease, unspecified COPD type (HCC) Chronic cough Cough documented in this encounter Care Teams Php Engineer Relationship Specialty Start Date End Date Bull Taveras MD [address] [facility] [address] [place] [address] PCP - General Internal Medicine 08/24/20 documented as of this encounter
--- OUTSIDE RECORDS SUMMARY | 2024-07-14 22:34 | XMS_ITS | Encounter Summary ---
Author Organization [facility] Address [address] [place] [address] Phone Care Team Providers Care Negative Turner Name Role Phone Bull Taveras MD Primary Care Provider [phone] Encounter Details Date Type Department Care Team (Late st Contact Info) Description 01/25/2022 Telephone [facility] [address] [facility] 8[address] [place] [address] [place] [address] Jennifer Fletcher Social History Tobacco Use Types Packs/Day Years Used Date Smoking Tobacco: Former Cigarettes Q uit: 12/13/2019 Smokeless Tobacco: Never Comments Unknown Sex and Gender Information Value Date Recorded Sex Assigned at Not on file 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 Gender Identity Not on file Sexual Orientation Straight 03/05/2021 1: 44 PM CDT documented as of this encounter Miscellaneous Notes * Telephone Encounter - Jennifer Fletcher - 01/25/2022 3:28 PM CDT LM to move 02/12 appt to 1045A documented in this encounter Plan of Treatment Scheduled Procedures Name Priority Associated Diagnoses Date/Ti me COLONOSCOPY Encounter for screening colonoscopy COLONOSCOPY Encounter for screening colonoscopy documented as of this encounter Visit Diagnoses Not on filedocumented in this encounter Care Teams Negative Turner Relationship Specialty Start Date End Date Bull Taveras MD [address] [facility] [address] [place] [address] PCP - General Internal Medicine 08/24/20 documented as of this encounter
--- OUTSIDE RECORDS SUMMARY | 2024-07-14 22:34 | XMS_ITS | Encounter Summary ---
Author Organization [facility] Address [address] [place] [address] Phone Care Team Providers Care Network Support Name Role Phone Bull Taveras MD Primary Care Provider [phone] Reason for Referral * Consultation (Routine) - Authorized Specialty Diagnoses / Procedures Referred By Contac t Referred To Contact Nephrology Diagnoses Stage 3a chronic kidney disease (HCC) Essential hypertension Hyperlipidemia, unspecified hyperlipidemia type Stage 3 chronic kidney disease, unspecified whether stage 3a or 3b CKD (HCC) Rafael Allred MD [address] [place] [address] Phone: tel: fax: [facility] (All Locations) Referral ID Status Reason Start Date Expiration Date Visits Requested Visits Authorized [id number] Authorized Specialty Services Required 02/18/2022 03/20/2025 40 40 Question Answer Please select the performing region: [facility] (All Locations) [167] # of visits: 1 Reason for Visit * Consultation (Routine) - Authorized Specialty Diagnoses / Procedures Referred By Contac t Referred To Contact Nephrology Diagnoses Stage 3a chronic kidney disease (HCC) Essential hypertension Hyperlipidemia, unspecified hyperlipidemia type Stage 3 chronic kidney disease, unspecified whether stage 3a or 3b CKD (HCC) Rafael Allred MD [address] [place] [address] Phone: tel: fax: [facility] (All Locations) Referral ID Status Reason Start Date Expiration Date Visits Requested Visits Authorized [id number] Authorized Specialty Services Required 02/18/2022 03/20/2025 40 40 Encounter Details Date Type Department Care Team (Late st Contact Info) Description 02/19/2022 10:45 AM CDT Office Visit [facility] Nephrology [address] [facility] 5th [place] [address] [place] [id number] Rafael Allred MD [address] [place] [address] Stage 3a chronic kidney disease (HCC) (Primary Dx); Essential hypertension; Hyperlipidemia, unspecified hyperlipidemia type; Stage 3 chronic kidney disease, unspecified whether stage 3a or 3b CKD (HCC); DERICK (renal osteodystrophy) Social History Tobacco Use Types Packs/Day Years Used Date Smoking Tobacco: Former Cigarettes Q uit: 12/13/2019 Smokeless Tobacco: Never Comments Unknown Sex and Gender Information Value Date Recorded Sex Assigned at Not on file 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 Gender Identity Not on file Sexual Orientation Straight 03/05/2021 1: 44 PM CDT documented as of this encounter Last Filed Vital Signs Vital Sign Reading Time Taken Comments Blood Pressure 115/76 02/19/2022 10:48 AM CDT Pulse 69 02/19/2022 10:48 AM CDT Temperature 36.6 ??C (97.9 ??F) 02/19/2022 10:48 AM C DT Respiratory Rate - - Oxygen Saturation - - Inhaled Oxygen Concentration - - Weight 88.6 kg (195 lb 4.8 oz) 02/19/2022 10:48 AM CDT Height 162.6 cm (5' 4 ) 02/19/2022 10:48 AM CDT Body Mass Index 33.52 02/19/2022 10:48 AM CDT documented in this encounter Patient Instructions * Patient Instructions* Rafael Allred MD - 02/19/2022 10:45 AM CDT Your kidney function is stable at about 45%. Your electrolytes are normal. Your BP is at goal. We want it less than 120/80. documented in this encounter Progress Notes * Rafael Allred MD - 02/19/2022 10:45 AM CDT PATIENT NAME: Lisa Scott : 1955 02/19/2022 CHIEF COMPLAINT: No chief complaint on file. HISTORY OF PRESENT ILLNESS: This is a 67 y.o. female who has been referred for consultation of chronic kidney disease, stage 3 Secondary to Unknown Etiology by Dr. Taveras. Since the last visit, the patient reports she had Afib in September and is back in sinus now. She is now on eliquis. Her BP has been 140/80 at home recently. She is now off prednisone. She denies heavy NSAID, renal stones, UTI's. She is now using CPAP and this has decreased her CPAP to 1-2x/night. PROBLEM LIST: Patient Active Problem List Diagnosis ??? Essential hypertension ??? Polyarthritis ??? Thyroid nodule ??? Stage 3a chronic kidney disease (HCC) ??? Shortness of breath ??? DEANNE (obstructive sleep apnea) ??? DERICK (renal osteodystrophy) ??? Other emphysema (CMS/HCC) (HCC) ??? Hyperlipidemia ??? Atrial fibrillation (CMS/HCC) (HCC) She has COPD - emphysema. Smoked until 2019. ALLERGIES: Allergies Allergen Reactions ??? Novocain [Procaine] Anaphylaxis Heart races ??? Dickson Nut Itching and Swelling ??? Cinnamon Flushing (skin) CURRENT MEDICATIONS: Current Outpatient Medications: ??? albuterol (PROAIR RESPICLICK) [...] puff daily, Disp: 90 each, Rfl: 3 PHYSICAL EXAM: Vitals BP 115/76 Pulse 69 Temp 36.6 ??C (97.9 ??F) Ht 162.6 cm (5' 4 ) Wt 88.6 kg (195 lb 4.8 oz) BMI 33.52 kg/m?? GENERAL: Alert, NAD, overweight EYES: Sclerae white, EOMI HEENT: Atraumatic, moist mucous membranes. MUSCULOSKELETAL: Mild Kyphosis high thoracici HEART: Regular rate and rhythm, Normal S1, S2, No murmurs, rubs or gallops. LUNGS: Clear to auscultation bilaterally. ABDOMEN: Soft, nontender, No HSM. EXTREMITIES: 1+ edema to low shins SKIN: Intact, no rashes. NEUROLOGIC: Moving all extremities, No focal deficits. LABS: Recent Results (from the past 1008 hour(s)) POCT glucose Collection Time: 01/10/22 1:29 PM Result Value Ref Range Glucose Blood, POC 108 mg/dL POCT lipid panel Collection Time: 01/10/22 1:29 PM Result Value Ref Range Cholesterol, POC 170 mg/dL HDL, POC 65 mg/dL Triglycerides, POC 127 mg/dL LDL, Direct, POC 79 mg/dL TSH Collection Time: 02/14/22 11:18 AM Result Value Ref Range TSH 0.644 0.450 - 4.500 uIU/mL T4, free Collection Time: 02/14/22 11:18 AM Result Value Ref Range T4,Free(Direct) 1.12 0.82 - 1.77 ng/dL Hemoglobin A1c Collection Time: 02/14/22 11:18 AM Result Value Ref Range Hgb A1C 6.1 (H) 4.8 - 5.6 % CBC with auto differential Collection Time: 02/14/22 11:18 AM Result Value Ref Range WBC 7.2 3.4 - 10.8 x10E3/uL RBC 4.37 3.77 - 5.28 x10E6/uL Hgb 12.6 11.1 - 15.9 g/dL Hct 38.1 34.0 - 46.6 % MCV 87 79 - 97 fL MCH 28.8 26.6 - 33.0 pg MCHC 33.1 31.5 - 35.7 g/dL Rdw 13.1 11.7 - 15.4 % Platelets 329 150 - 450 x10E3/uL Neutrophils 56 Not Estab. % Lymphs 27 Not Estab. % Monocytes 9 Not Estab. % Eosinophils 6 Not Estab. % Basophil pct 2 Not Estab. % Neutrophil abs 4.0 1.4 - 7.0 x10E3/uL Lymphs (Absolute) 2.0 0.7 - 3.1 x10E3/uL Monocyte abs 0.6 0.1 - 0.9 x10E3/uL Eosinophils, abs 0.4 0.0 - 0.4 x10E3/uL Basophils, abs 0.1 0.0 - 0.2 x10E3/uL Immature Granulocytes 0 Not Estab. % Immature Grans (Abs) 0.0 0.0 - 0.1 x10E3/uL Albumin Creatinine Ratio, Urine Collection Time: 02/14/22 11:18 AM Result Value Ref Range Creatinine ur 56.9 Not Estab. mg/dL Microalbumin, ur <3.0 Not Estab. ug/mL Microalbumin/creat ratio <5 0 - 29 mg/g creat PTH Collection Time: 02/14/22 11:18 AM Result Value Ref Range PTH Intact 29 15 - 65 pg/mL Renal function panel Collection Time: 02/14/22 11:18 AM Result Value Ref Range Glucose 95 65 - 99 mg/dL BUN 21 8 - 27 mg/dL Creatinine, Serum 1.31 (H) 0.57 - 1.00 mg/dL eGFR 44 (L) >59 mL/min/1.73 BUN/creat ratio 16 12 - 28 Sodium 144 134 - 144 mmol/L Potassium, sr 5.3 (H) 3.5 - 5.2 mmol/L Chloride 106 96 - 106 mmol/L CO2 25 20 - 29 mmol/L Calcium 9.8 8.7 - 10.3 mg/dL Phosphorus, sr 3.3 3.0 - 4.3 mg/dL Albumin 4.5 3.8 - 4.8 g/dL IMAGING: Complete Renal Ultrasound 12/15/20 EXAMINATION: COMPLETE RENAL SONOGRAM HISTORY: Chronic kidney disease with elevated creatinine COMPARISON: None 2020:??FINDINGS: Kidneys: The echogenicity of both kidneys is normal. The kidneys are normal in size. The right kidney measures 9.8 cm in length, and the left, 9.9 cm in length. There is no hydronephrosis in either kidney. There are no renal calculi visualized. Bladder: The urinary bladder is normal IMPRESSION: Normal kidneys. No hydronephrosis. OUTSIDE RECORD Review We are getting those from Dr. Alvarez's office. ASSESSMENT AND PLAN: Diagnoses and all orders for this visit: Stage 3a chronic kidney disease (HCC) - Ambulatory referral to Nephrology; Future - Ambulatory referral to Nephrology - Renal function panel; Future - PTH; Future - Albumin Creatinine Ratio, Urine; Future - CBC with auto differential; Future - Renal function panel - PTH - Albumin Creatinine Ratio, Urine - CBC with auto differential Essential hypertension - Ambulatory referral to Nephrology; Future - Ambulatory referral to Nephrology Hyperlipidemia, unspecified hyperlipidemia type - Ambulatory referral to Nephrology; Future - Ambulatory referral to Nephrology Stage 3 chronic kidney disease, unspecified whether stage 3a or 3b CKD (HCC) - Ambulatory referral to Nephrology; Future - Ambulatory referral to Nephrology DERICK (renal osteodystrophy) - Renal function panel; Future - PTH; Future - Renal function panel - PTH 1.CKD, stage 3B: The patient has no clear reason for a decrease in renal function except prior HTN.Her Creatinine Clearance was 52 ml/min. Most recent values is 44%. Renal US is normal. She has not had an appreciable change in her function. She has no albuminuria, so increasing lisinopril is not necessary. We added Chlorthalidone for better BP control previously. We can consider SGLT2i later. 2. Hypertension: This is under excellent control. Added chlorthalidone previously and is on diltiazem now also. We will continue the present regimen. 3. DERICK: Start vitamin D. Check PTH today. 4. Increased CV risk from CKD: She is not on a statin. We started atorvastatin 10 mg nightly previously. We will continue this dose. DISPOSITION: The patient will follow-up 12 month. Rafael Allred MD Nephrology Attending documented in this encounter Plan of Treatment Scheduled Procedures Name Priority Associated Diagnoses Date/Ti me COLONOSCOPY Encounter for screening colonoscopy COLONOSCOPY Encounter for screening colonoscopy Scheduled Referrals Name Type Priority Associated Diagnoses Orde r Schedule Ambulatory referral to Nephrology Outpatient Referral Routine Stage 3a chronic kidney disease (HCC) Essential hypertension Hyperlipidemia, unspecified hyperlipidemia type Stage 3 chronic kidney disease, unspecified whether stage 3a or 3b CKD (HCC) Expected: 03/04/2022 (Approximate), Expires: 02/18/2023 documented as of this encounter Procedures Procedure Name Priority Date/Time Associated Diagnosis Comments CBC WITH AUTO DIFFERENTIAL Routine 12/24/2022 10:56 AM CDT Stage 3a chronic kidney disease (HCC) ALBUMIN CREATININE RATIO, URINE Routine 12/24/2022 10:56 AM CDT Stage 3a chronic kidney disease (HCC) PTH Routine 12/24/2022 10:56 AM CDT Stage 3a chronic kidney disease (HCC) DERICK (renal osteodystrophy) RENAL FUNCTION PANEL Routine 12/24/2022 10:56 AM CDT Stage 3a chronic kidney disease (HCC) DERICK (renal osteodystrophy) documented in this encounter Results * CBC with auto differential (12/24/2022 10:56 AM CDT) WBC 6.0 3.4 - 10.8 x10E3/uL [facility] - 01 RBC 4.21 3.77 - 5.28 x10E6/uL [facility] - 01 Hgb 12.3 11.1 - 15.9 g/dL [facility] - 01 Hct 36.5 34.0 - 46.6 % [facility] - 01 MCV 87 79 - 97 fL [facility] - 01 MCH 29.2 26.6 - 33.0 pg [facility] - 01 MCHC 33.7 31.5 - 35.7 g/dL [facility] - 01 Rdw 14.1 11.7 - 15.4 % [facility] - 01 Platelets 299 150 - 450 x10E3/uL [facility] - 01 Neutrophils pct 57 Not Estab. % [facility] - 01 Lymphs pct 29 Not Estab. % [facility] - 01 Monocytes pct 8 Not Estab. % [facility] - 01 Eosinophils pct 4 Not Estab. % [facility] - 01 Basophil pct 2 Not Estab. % [facility] - 01 Neutrophil abs 3.5 1.4 - 7.0 x10E3/uL [facility] - 01 Lymphs (Absolute) 1.7 0.7 - 3.1 x10E3/uL [facility] - 01 Monocyte abs 0.5 0.1 - 0.9 x10E3/uL [facility] - 01 Eosinophils, abs 0.2 0.0 - 0.4 x10E3/uL [facility] - 01 Basophils, abs 0.1 0.0 - 0.2 x10E3/uL [facility] - 01 Immature Granulocytes 0 Not Estab. % [facility] - 01 Immature Grans (Abs) 0.0 0.0 - 0.1 x10E3/uL [facility] - 01 Blood specimen (specimen) 12/24/2022 10:56 AM CDT 12/24/2022 Narrative [facility] - 12/25/2022 2:08 AM CDT Performed at: ??01 - [address] ??[id number] Rn Recovery: Singh Chavez PhD, Phone: ??[phone] Rafael Allred MD LAB BLOOD ORDERABLES Final Re sult Performing Organization Address [facility] de Phone Number [facility] - 01 * Albumin Creatinine Ratio, Urine (12/24/2022 10:56 AM CDT) Creatinine ur 139.7 Not Estab. mg/dL [facility] - 01 Microalbumin, ur 10.3 Not Estab. ug/mL [facility] - 01 Microalbumin/cre at ratio 7 0 - 29 mg/g creat [facility] - 01 Comment: ? Normal: ?0 - ??29 ? Moderately increased: 30 - 300 ? Severely increased: ? >300 Urine 12/24/2022 10:5 6 AM CDT 12/24/2022 Narrative [facility] - 12/25/2022 7:10 AM CDT Performed at: ??01 - [facility] ??[id number] Rn Recovery: Singh Chavez PhD, Phone: ??[phone] Rafael Allred MD LAB URINE ORDERABLES Final Re sult Performing Organization Address [facility] de Phone Number [facility] - * PTH (12/24/2022 10:56 AM CDT) PTH Intact 46 15 - 65 pg/mL [facility] - 01 Blood specimen (specimen) 12/24/2022 10:56 AM CDT 12/24/2022 Narrative [facility] - 12/25/2022 12:10 PM CDT Performed at: ??01 - [facility] [address] ??[id number] Rn Recovery: Singh Chavez PhD, Phone: ??[phone] Rafael Allred MD LAB BLOOD ORDERABLES Final Re sult Performing Organization Address [facility] Co de Phone Number [facility] - 01 * (ABNORMAL) Renal function panel (12/24/2022 10:56 AM CDT) Glucose 97 70 - 99 mg/dL [facility] - 01 BUN 24 8 - 27 mg/dL [facility] - 01 Creatinine, Serum 1.44(H) 0.57 - 1.00 mg/dL [facility] - 01 eGFR 39(L) >59 mL/min/1.7 3 [facility] - 01 BUN/creat ratio 17 12 - 28 [facility] - 01 Sodium 140 134 - 144 mmol/L [facility] - 01 Potassium, sr 5.1 3.5 - 5.2 mmol/L [facility] - 01 Chloride 104 96 - 106 mmol/L [facility] - 01 CO2 22 20 - 29 mmol/L [facility] - 01 Calcium 9.9 8.7 - 10.3 mg/dL [facility] - 01 Phosphorus, sr 3.9 3.0 - 4.3 mg/dL [facility] - 01 Albumin 4.4 3.8 - 4.8 g/dL [facility] - 01 Blood specimen (specimen) 12/24/2022 10:56 AM CDT 12/24/2022 Narrative [facility] - 12/25/2022 8:17 AM CDT Performed at: ??01 - [facility] [address] ??[id number] Rn Recovery: Singh Chavez PhD, Phone: ??[phone] Rafael Allred MD LAB BLOOD ORDERABLES Final Re sult Performing Organization Address [facility]/ZIP Co de Phone Number [facility] - 01 documented in this encounter Visit Diagnoses Diagnosis Stage 3a chronic kidney disease (HCC)- Primary Essential hypertension Unspecified essential hypertension Hyperlipidemia, unspecified hyperlipidemia type Stage 3 chronic kidney disease, unspecified whether stage 3a or 3b CKD (HCC) DERICK (renal osteodystrophy) Renal osteodystrophy documented in this encounter Care Teams Network Support Relationship Specialty Start Date End Date Bull Taveras MD [address] [address] PCP - General Internal Medicine 08/24/20 documented as of this encounter
--- OUTSIDE RECORDS SUMMARY | 2024-07-14 22:34 | XMS_ITS | Encounter Summary ---
Author Organization [facility] Address [address] [place] [address] Phone Care Team Providers Care Risk Management Specialist Name Role Phone Bull Taveras MD Primary Care Provider [phone] Encounter Details Date Type Department Care Team (Late st Contact Info) Description 03/27/2022 Telephone [facility] Pulmonary [address] 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 can see Dr. Vale on 04/23/22 at 4:00pm with jules. & O2A. thanks, Isa ----- Message ----- From: Anni Espinal CMA Sent: 03/26/2022 1:35 PM CDT To: Nahomi Boyce RN, # Subject: pt wants to swith providers This pt wants to switch from Dr Vale to Dr. Leiva. She hasn't be able to get a response from Dr. Vale in a few months. Can I get a date and time for this pt and testing. Thanks, Anni documented in this encounter Plan of Treatment Scheduled Procedures Name Priority Associated Diagnoses Date/Ti me COLONOSCOPY Encounter for screening colonoscopy COLONOSCOPY Encounter for screening colonoscopy documented as of this encounter Visit Diagnoses Not on filedocumented in this encounter Care Teams Risk Management Specialist Relationship Specialty Start Date End Date Bull Taveras MD [address] [address] PCP - General Internal Medicine 08/24/20 documented as of this encounter
--- OUTSIDE RECORDS SUMMARY | 2024-07-14 22:34 | XMS_ITS | Encounter Summary ---
Author Organization [facility] Address [address] [place] [address] Care Team Providers Care Security Sme Name Role Phone Bull Taveras MD Primary Care Provider Encounter Details Date Type Department Care Team (Late st Contact Info) Description 04/18/2022 [facility] [address] [facility] [address] [place] [place] [address] Bull Taveras MD [address] [facility] [address] [place], [place] [id number] Post-menopausal (Primary Dx) Social History Tobacco Use Types Packs/Day Years Used Date Smoking Tobacco: Former Cigarettes Q uit: 12/13/2019 Smokeless Tobacco: Never Comments Unknown Sex and Gender Information Value Date Recorded Sex Assigned at Not on file 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 Please do monthly breast self exams. documented in this encounter Plan of Treatment Scheduled Procedures Name Priority Associated Diagnoses Date/Ti me COLONOSCOPY Encounter for screening colonoscopy COLONOSCOPY Encounter for screening colonoscopy documented as of this encounter Procedures Procedure Name Priority Date/Time Associated Diagnosis Comments SCAN - RADIOLOGY/IMAGING 04/18/2022 1:15 PM CDT SCAN - RADIOLOGY/IMAGING 04/18/2022 12:00 AM CDT documented in this encounter Results * SCAN - RADIOLOGY/IMAGING (04/18/2022 1:15 PM CDT) Anatomical Region Laterality Modality Other Bull Taveras MD Final Result * SCAN - RADIOLOGY/IMAGING (04/18/2022 12:00 AM CDT) Anatomical Region Laterality Modality Other us Provider Scanning Final Result documented in this encounter Visit Diagnoses Diagnosis Post-menopausal- Primary Asymptomatic postmenopausal status (age-related) (natural) documented in this encounter Care Teams Security Sme Relationship Specialty Start Date End Date Bull Taveras MD [address] [address] PCP - General Internal Medicine 08/24/20 documented as of this encounter
--- OUTSIDE RECORDS SUMMARY | 2024-07-14 22:34 | XMS_ITS | Encounter Summary ---
Author Organization [facility] Address [address] [place] [address] Care Team Providers Care Alligator Shear Operator Name Role Phone Bull Taveras MD Primary Care Provider [phone] Encounter Details Date Type Department Care Team (Late st Contact Info) Description 03/11/[address] 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 Pt interested in scheduling. Pt's chart routed to prep pool for review. documented in this encounter Plan of Treatment Scheduled Procedures Name Priority Associated Diagnoses Date/Ti me COLONOSCOPY Encounter for screening colonoscopy COLONOSCOPY Encounter for screening colonoscopy documented as of this encounter Visit Diagnoses Not on filedocumented in this encounter Care Teams Alligator Shear Operator Relationship Specialty Start Date End Date Bull Taveras MD [address] [address] PCP - General Internal Medicine 08/24/20 documented as of this encounter
--- OUTSIDE RECORDS SUMMARY | 2024-07-14 22:34 | XMS_ITS | Encounter Summary ---
Author Organization [facility] Address [address] [place] [address] Phone Care Team Providers Care Injection Specialist Name Role Phone Bull Taveras MD Primary Care Provider [phone] Encounter Details Date Type Department Care Team (Late st Contact Info) Description 04/25/2022 Telephone [facility] Pulmonary [address] [facility] 8th [place] [address] [place] [address] Nahomi Boyce RN Social History Tobacco Use Types Packs/Day Years Used Date Smoking Tobacco: Former Cigarettes Q uit: 12/13/2019 Smokeless Tobacco: Never Comments Unknown Sex and Gender Information Value Date Recorded Sex Assigned at Not on file 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 of results. Verbalized understanding. ----- Message from Conner Vale MD sent at 04/25/2022 12:34 PM CDT ----- Isa, Please let Ms. Scott know her CT showed no nodules. Only existing emphysema. Thanks, documented in this encounter Plan of Treatment Scheduled Procedures Name Priority Associated Diagnoses Date/Ti me COLONOSCOPY Encounter for screening colonoscopy COLONOSCOPY Encounter for screening colonoscopy documented as of this encounter Visit Diagnoses Not on filedocumented in this encounter Care Teams Injection Specialist Relationship Specialty Start Date End Date Bull Taveras MD [address] [facility] [address] [place] [address] PCP - General Internal Medicine 08/24/20 documented as of this encounter
--- OUTSIDE RECORDS SUMMARY | 2024-07-14 22:34 | XMS_ITS | Encounter Summary ---
Author Organization [facility] Address [address] [place] [address] Phone Care Team Providers Care Rf Design Engineer Name Role Phone Bull Taveras MD Primary Care Provider [phone] Reason for Referral * Procedure (Routine) - Closed Specialty Diagnoses / Procedures Referred By Grecia t Referred To Contact Diagnoses Airway obstruction Abnormal PFTs (pulmonary function tests) Shortness of breath Procedures [facility] Adult [facility]FT [facility]- [facility]; Spirometry, Oxygen Assessment Titration Conner Vale MD [address] [place] [address] Phone: tel: fax: Referral ID Status Reason Start Date Expiration Date Visits Re quested Visits Authorized [id number] Closed 03/27/2022 04/26/2023 1 1 Reason for Visit * Consultation (Routine) - Closed Specialty Diagnoses / Procedures Referred By Contac t Referred To Contact Pulmonary Disease / Pulmonology Diagnoses Chronic obstructive pulmonary disease, unspecified COPD type (HCC) Bull Taveras MD [address] [facility] [address] [place] [address] Phone: tel: fax: [facility] (All Locations) Referral ID Status Reason Start Date Expiration Date V isits Requested Visits Authorized [id number] Closed Specialty Services Required 04/15/2022 02/09/2023 12 12 Encounter Details Date Type Department Care Team (Latest Contact Info) Description 04/23/2022 3:00 PM CDT - 04/23/2022 11:59 PM CDT Hospital Encounter [facility] Pulmonary [address] [facility] [address] [place] [address] Airway obstruction; Abnormal PFTs (pulmonary function tests); Shortness of breath Discharge Disposition: Discharge to home or self care Social History Tobacco Use Types Packs/Day Years Used Date Smoking Tobacco: Former Cigarettes Q uit: 12/13/2019 Smokeless Tobacco: Never Comments Unknown Sex and Gender Information Value Date Recorded Sex Assigned at Not on file 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 Gender Identity Not on file Sexual Orientation [...] Diagnosis Comments PULMONARY FUNCTION TEST (PFT) Routine 04/23/2022 3:28 PM CDT Airway obstruction Abnormal PFTs (pulmonary function tests) Shortness of breath documented in this encounter Results * Pulmonary Function Test - (04/23/2022 3:28 PM CDT) FVC PRE 2.60 L [facility] FVC %PRE PRED 88 % [facility] FEV1 PRE 1.44 L [facility] FEV1 %PRE PRED 63 % [facility] FEV1/FVC PRE 55.2 % [facility] Anatomical Region Laterality Modality PFT 04/23/2022 3:10 PM CDT Narrative 04/25/2022 11:08 PM CDT Table formatting from the original result was not included. [facility] Division of Pulmonary & Critical Care Medicine [address] [place] [address]; [place] [address]; [place], [place] ??[address]; [phone] Pulmonary Function Laboratory Pulmonary Stress Test Simple/Oxygen Assessment Patient: Lisa Scott Date: 04/23/2022 : 1955 Ht: 64.5 IN Wt: 199 LBS Time (min) Distance (ft)/ Piña O2 L/M SpO2 HR Nadia* BP FEV1 % Pred Rest: ??RA 100 82 0 144/62 1.41 62 % ? Walk/Bike: 1 ??RA 100 90 0 ? 2 ??RA 100 98 0.5 ? 3 ??RA 100 100 2 ? 4 ??RA 100 102 3 ? 5 ??RA 100 103 3 ? 6 min 0 sec ??RA 100 103 4 ? Recovery: 1 ??RA 100 86 2 113/65 1.44 63% 3 ?*Nadia rate of perceived exertion (1-10 dyspnea scale) ??Tyler, CHEST 2003; [id number] Walk Test Summary: Six Minute Walk Distance: 1175 ft Six-minute Walk Work [distance (m) x body wt (kg)]: 42212 kg.m (normal >60,000kg.m) Oxygen required to maintain SpO2 greater than 90% during six minutes of walkin L/M Comments: C/O HIP/ BACK PAIN Interpretation: Breathing room air, SpO2 is normal at rest and during exercise sufficient to increase pulse from 82 to 103 b/min, SpO2 is stable. On this basis, SpO2 is adequate at rest breathing room air and while walking breathing room air. This level of exercise is associated with no significant change of FEV1. ?? Rudy Cárdenas M.D. By signing this report, the attending pulmonary physician certifies that he/she has personally reviewed and interpreted the graphic and numerical data associated with this pulmonary function study and has reviewed and /or edited a preliminary draft report and agrees with the written final report. PFT performed at:->[facility] Adult PFT Lab- [facility] Procedure:->Spirometry Procedure:->Oxygen Assessment Titration Conner Vale MD PFT ORDERABLES Final Result documented in this encounter Visit Diagnoses Diagnosis Airway obstruction Other diseases of respiratory system, not elsewhere classified Abnormal PFTs (pulmonary function tests) Nonspecific abnormal results of pulmonary system function study Shortness of breath documented in this encounter Care Teams Rf Design Engineer Relationship Specialty Start Date End Date Bull Taveras MD [address] [address] PCP - General Internal Medicine 08/24/20 documented as of this encounter
--- OUTSIDE RECORDS SUMMARY | 2024-07-14 22:34 | XMS_ITS | Encounter Summary ---
Author Organization [facility] Address [address] [place] [address] Care Team Providers Care Internet Specialist Name Role Phone Bull Taveras MD Primary Care Provider [phone] Reason for Referral * Consultation (Routine) - Closed Specialty Diagnoses / Procedures Referred By Contac t Referred To Contact Pulmonary Disease / Pulmonology Diagnoses Chronic obstructive pulmonary disease, unspecified COPD type (HCC) Bull Taveras MD [address] [place] [id number] Phone: tel: fax: [facility] (All Locations) Referral ID Status Reason Start Date Expiration Date V isits Requested Visits Authorized [id number] Closed Specialty Services Required 04/15/2022 02/09/2023 12 12 Question Answer Please select the performing region: [facility] (All Locations) [[id number]] # of visits: 1 * Diagnostic Imaging (Routine) - Closed Specialty Diagnoses / Procedures Referred By Contac t Referred To Contact Diagnoses Hyperlipidemia, unspecified hyperlipidemia type Essential hypertension Thyroid nodule Stage 3a chronic kidney disease (HCC) Chronic obstructive pulmonary disease, unspecified COPD type (HCC) Paroxysmal atrial fibrillation (CMS/HCC) (HCC) [place] [address] [place] [id number] Phone: tel: fax: [facility] [address] [facility] [place] [address] Referral ID Status Reason Start Date Expiration Date Visits Re quested Visits Authorized [id number] Closed 01/10/2022 02/09/2023 1 1 Reason for Visit * Reason Comments Hypertension Hyperlipidemia Shortness of Breath Encounter Details Date Type Department Care Team (Late st Contact Info) Description 01/10/2022 12:30 PM CDT Office Visit [facility] [address] [facility] [address] [place] [id number] Bull Taveras MD [address] [facility] [address] [place] [address] Hyperlipidemia, unspecified hyperlipidemia type (Primary Dx); Encounter for screening colonoscopy; Visit for screening mammogram; Post-menopausal; Essential hypertension; Thyroid nodule; Stage 3a chronic kidney disease (HCC); Chronic obstructive pulmonary disease, unspecified COPD type (HCC); Paroxysmal atrial fibrillation (CMS/HCC) (HCC); Hyperglycemia Social History Tobacco Use Types Packs/Day Years Used Date Smoking Tobacco: Former Cigarettes Q uit: 12/13/2019 Smokeless Tobacco: Never Comments Unknown Sex and Gender Information Value Date Recorded Sex Assigned at Not on file 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 Gender Identity Not on file Sexual Orientation Straight 03/05/2021 1: 44 PM CDT documented as of this encounter Last Filed Vital Signs Vital Sign Reading Time Taken Comments Blood Pressure 144/68 01/10/2022 12:41 PM CDT Pulse 75 01/10/2022 12:41 PM CDT Temperature - - Respiratory Rate - - Oxygen Saturation - - Inhaled Oxygen Concentration - - Weight 89.8 kg (198 lb) 01/10/2022 12:41 PM CDT Height 162.6 cm (5' 4 ) 01/10/2022 12:41 PM CDT Body Mass Index 33.99 01/10/2022 12:41 PM CDT documented in this encounter Ordered Prescriptions Prescription Sig Dispense Quantity Refills Last Filled Start Date End Date pneumococcal 20-valent (PREVNAR 20) 0.5 mL vaccine Inject 0.5 mL into the muscle as instructed once for 1 dose 0.5 mL 01/10/2022 2 documented in this encounter Progress Notes * Bull Taveras MD - 01/10/2022 12:30 PM CDT Images from the original note were not included. Subjective/Objective Patient ID: iLsa Scott is a 66 y.o. female. Chief Complaint Hypertension, Hyperlipidemia, and Shortness of Breath HPI Patient here for evaluation of atrial fibrillation. ?? She does have a previous history of hypertension, obstructive sleep apnea, hyperlipidemia, chronic kidney disease stage IIIB, COPD, thyroid nodule status post biopsy in 2020. ?? She had presented to an outside hospital emergency room for palpitations. She was found to be in atrial fibrillation with RVR. She has converted to normal sinus rhythm and now is on Eliquis 5 mg q.12hours as well as diltiazem 120 mg extended release every 24 hours. ?? The patient reports that she drinks to coffee beverages a day. She does not abuse alcohol. She has been using a CPAP mask faithfully for the last 2 months. ?? A previous echocardiogram done in 2020 demonstrated left atrial enlargement. Thyroid laboratories reportedly were done at the outside hospital, reportedly with a low TSH. Unfortunately I do not have those results at this time. ?? Currently she feels well. She has had no further palpitations. She denies any increase in her baseline shortness of breath. Denies any chest discomfort, edema, dizziness, or near fainting. Past Surgical History: Procedure Laterality Date ??? REPAIR KNEE LIGAMENT Family History Problem Relation Age of Onset ??? Diabetes Mother ??? Asthma Mother ??? COPD Mother ??? Atrial fibrillation Mother ??? Hyperlipidemia Mother ??? COPD Father ??? Heart disease Father ??? Hypertension Father ??? Kidney disease Neg Hx Social History Tobacco Use ??? Smoking status: Former Smoker Quit date: 12/13/2019 Years since quittin.0 ??? Smokeless tobacco: Never Used Substance and Sexual Activity ??? Drug use: Yes Types: Alcohol ??? Sexual activity: None Alcohol Use: Not on file Immunization History Administered Date(s) Administered ??? Influenza, Quadrivalent, High Dose, Preservative Free, Intrr 07/03/2020 ??? Influenza, Quadrivalent, Recombinant, Egg Free, Preservative Free, Intramuscular 07/29/2019 ??? Influenza, Quadrivalent, Split, Preservative Free, Intramuscular 07/16/2013 ??? Moderna SARS-CoV-2 Vaccination (12+ YRS) 08/23/2020, 09/26/2020 ??? Pneumococcal Conjugate PCV 13 07/29/2019 Current Outpatient Medications Medication Sig ??? albuterol (PROAIR RESPICLICK) 90 mcg/actuation inhaler Inhale 2 puffs every 6 (six) hours as needed for wheezing ??? atorvastatin (LIPITOR) 10 mg tablet Take 1 tablet (10 mg total) by mouth nightly ??? calcium carbonate (OS-SHERLEY) 1,250 mg (500 mg elemental) tablet Take 2 tablets (2,500 mg total) by mouth daily (Patient taking differently: Take 1 tablet by mouth daily) ??? cetirizine (ZyrTEC) 10 mg tablet Take 10 mg by mouth daily [employer] [facility] Allergy ??? chlorthalidone 25 mg tablet Take 0.5 tablets (12.5 mg total) by mouth daily ??? cholecalciferol (VITAMIN D-3) 25 mcg (1,000 unit) tablet Take 1 tablet (1,000 Units total) by mouth daily ??? diltiazem (TIAZAC) 120 mg 24 hr capsule Take 1 capsule (120 mg total) by mouth every morning ??? Eliquis 5 mg tablet Take 1 tablet (5 mg total) by mouth every 12 (twelve) hours ??? lisinopriL (PRINIVIL,ZESTRIL) 10 mg tablet Take 1 tablet (10 mg total) by mouth daily ??? magnesium oxide 400 mg magnesium capsule Take by mouth ??? pneumococcal 20-valent (PREVNAR 20) 0.5 mL vaccine Inject 0.5 mL into the muscle as instructed once for 1 dose ??? potassium gluconate 595 mg (99 mg) tablet 595 mg ??? umeclidinium-vilanteroL (Anoro Ellipta) 62.5-25 mcg/actuation blister with device Inhale 1 puffdaily Review of Systems Constitutional: Negative for appetite [...] past 24 hrs: BP Pulse Height Weight 01/10/22 1241 144/68 75 162.6 cm (5' 4 ) 89.8 kg (198 lb) Wt Readings from Last 3 Encounters: 01/10/22 89.8 kg (198 lb) 09/18/21 91.6 kg (202 lb) 09/07/21 92.4 kg (203 lb 12.8 oz) Physical Exam Vitals and nursing note [...] unspecified hyperlipidemia type (E78.5) (Primary) - POCT glucose - POCT lipid panel Encounter for screening colonoscopy (Z12.11) - Direct Scheduling Case Request: COLONOSCOPY Visit for screening mammogram (Z12.31) - Screening Mammogram Bilateral W Carlos; Future Post-menopausal (Z78.0) - Dexa Axial Skeleton Bone Density 1 or 2 Site; Future Other orders - pneumococcal 20-valent (PREVNAR 20) 0.5 mL vaccine; Inject 0.5 mL into the muscle as instructed once for 1 dose Labs No results found for: HGBA1C Lab Results Component Value Date POCCHOL 183 09/07/2021 Lab Results Component Value Date POCHDL 78 09/07/2021 Lab Results Component Value Date POCLDL 87 09/07/2021 Lab Results Component Value Date POCTRIG 92 09/07/2021 No results found for: A1C Lab Results Component Value Date CREATININE 1.57 (H) 07/26/2021 CREATININE 1.26 (H) 05/05/2021 CREATININE 1.45 (H) 03/27/2021 Lab Results Component Value Date COLORU Straw [...] Diagnoses Orde r Schedule Ambulatory referral to Pulmonology Outpatient Referral Routine Chronic obstructive pulmonary disease, unspecified COPD type (HCC) Expected: 01/24/2022 (Approximate), Expires: 01/10/2023 documented as of this encounter Procedures Procedure Name Priority Date/Time Associated Diagnosis Comments TSH Routine 02/14/2022 11:18 AM CDT Hyperlipidemia, unspecified hyperlipidemia type Essential hypertension Thyroid nodule Stage 3a chronic kidney disease (HCC) Chronic obstructive pulmonary disease, unspecified COPD type (HCC) Paroxysmal atrial fibrillation (CMS/HCC) (HCC) T4, FREE Routine 02/14/2022 11:18 AM CDT Hyperlipidemia, unspecified hyperlipidemia type Essential hypertension Thyroid nodule Stage 3a chronic kidney disease (HCC) Chronic obstructive pulmonary disease, unspecified COPD type (HCC) Paroxysmal atrial fibrillation (CMS/HCC) (HCC) HEMOGLOBIN A1C Routine 02/14/2022 11:18 AM CDT Hyperlipidemia, unspecified hyperlipidemia type Essential hypertension Thyroid nodule Stage 3a chronic kidney disease (HCC) Chronic obstructive pulmonary disease, unspecified COPD type (HCC) Paroxysmal atrial fibrillation (CMS/HCC) (HCC) Hyperglycemia POCT GLUCOSE [id number] Routine 01/10/2022 1: 29 PM CDT Hyperlipidemia, unspecified hyperlipidemia type POCT LIPID PANEL Routine 01/10/2022 1:29 PM CDT Hyperlipidemia, unspecified hyperlipidemia type documented in this encounter Results * (ABNORMAL) Hemoglobin A1c (02/14/2022 11:18 AM CDT) Hgb A1C 6.1(H) 4.8 - 5.6 % [facility] - 01 Comment: ? Prediabetes: 5.7 - 6.4 ? Diabetes: >6.4 ? Glycemic control for adults with diabetes: <7.0 Blood specimen (specimen) 02/14/2022 11:18 AM CDT 02/14/2022 Narrative [facility] - 02/15/2022 7:09 AM CDT Performed at: ??01 - [facility] ??[id number] Dovetailer: Singh Chavez PhD, Phone: ??[phone] Bull Taveras MD LAB BLOOD ORDERABLES Final Re sult Performing Organization Address [facility] de Phone Number [facility] - * T4, free (02/14/2022 11:18 AM CDT) T4,Free(Direct) 1.12 0.82 - 1.77 ng/dL [facility] - 01 Blood specimen (specimen) 02/14/2022 11:18 AM CDT 02/14/2022 Narrative [facility] - 02/15/2022 7:09 AM CDT Performed at: ?? [facility] ??[id number] Dovetailer: Singh Chavez PhD, Phone: ??[phone] Bull Taveras MD LAB BLOOD ORDERABLES Final Re sult Performing Organization Address [facility] de Phone Number [facility] - * TSH (02/14/2022 11:18 AM CDT) TSH 0.644 0.450 - 4.500 uIU/mL [facility] - 01 Blood specimen (specimen) 02/14/2022 11:18 AM CDT 02/14/2022 Narrative [facility] - 02/15/2022 7:09 AM CDT Performed at: ??01 - [facility] [address], [place], [place] ??[id number] Dovetailer: Singh Chavez PhD, Phone: ??[phone] us Bull Taveras MD LAB BLOOD ORDERABLES Final Re sult [facility] - 01 * US Thyroid (01/10/2022 3:56 PM CDT) [...] cm in sagittal plane. Procedure Note Argenis Carmen MD - 01/10/2022 EXAMINATION: THYROID SONOGRAM HISTORY: [...] MD IMG US PROCEDURES Final Resul t * POCT lipid panel (01/10/2022 1:29 PM CDT) Cholesterol, POC 170 mg/dL HDL, POC 65 mg/dL Triglycerides, POC 127 mg/dL LDL Cholesterol POC 79 mg/dL Capillary blood 01/10/2022 1 :29 PM CDT Bull Taveras MD POINT OF CARE TEST ORDERABLES Final Result * (ABNORMAL) POCT glucose (01/10/2022 1:29 PM CDT) Glucose Blood, POC 108 mg/dL Blood specimen (specimen) 01/10/2022 1:29 PM CDT Bull Taveras MD POINT OF CARE TEST ORDERABLES Final Result documented in this encounter Visit Diagnoses Diagnosis Hyperlipidemia, unspecified hyperlipidemia type- Primary Encounter for screening colonoscopy Visit for screening mammogram Post-menopausal Asymptomatic postmenopausal status (age-related) (natural) Essential hypertension Unspecified essential hypertension Thyroid nodule Nontoxic uninodular goiter Stage 3a chronic kidney disease (HCC) Chronic obstructive pulmonary disease, unspecified COPD type (HCC) Paroxysmal atrial fibrillation (CMS/HCC) (HCC) Atrial fibrillation Hyperglycemia Other abnormal glucose Hyperlipidemia, unspecified hyperlipidemia type Essential hypertension Unspecified essential hypertension Thyroid nodule Nontoxic uninodular goiter Stage 3a chronic kidney disease (HCC) Chronic obstructive pulmonary disease, unspecified COPD type (HCC) Paroxysmal atrial fibrillation (CMS/HCC) (HCC) Atrial fibrillation documented in this encounter Discontinued Medications Medication Sig Discontinue Reason Start Date End Da te acetaminophen (TYLENOL) 500 mg tablet Take 500 mg by mouth every 6 (six) hours as needed for pain Therapy completed 01/10/2022 documented as of this encounter Historical Medications * This list may reflect changes made after this encounter. magnesium oxide 400 mg magnesium capsule Take by mouth potassium gluconate 595 mg (99 mg) tablet 1 tablet (595 mg total) 01/26/2024 added in this encounter Orders Case Request Count Last Ordered Date First Orde red Date GI DIRECT ACCESS CASE REQUEST 1 01/10/2022 documented in this encounter Care Teams Internet Specialist Relationship Specialty Start Date End Date Bull Taveras MD [address] [facility] [address] [place] [address] PCP - General Internal Medicine 08/24/20 documented as of this encounter
--- OUTSIDE RECORDS SUMMARY | 2024-07-14 22:34 | XMS_ITS | Encounter Summary ---
Author Organization [facility] Address [address] [place] [address] Phone Care Team Providers Care Controls Designer Name Role Phone Bull Taveras MD Primary Care Provider [phone] Reason for Visit * Consultation (Routine) - Closed Specialty Diagnoses / Procedures Referred By Contac t Referred To Contact Neurology Diagnoses DEANNE (obstructive sleep apnea) Bull Taveras MD [facility] [address] [place] [address] Phone: tel: fax: [facility] (All Locations) Referral ID Status Reason Start Date Expiration Date V isits Requested Visits Authorized [id number] Closed Specialty Services Required 06/22/2021 07/22/2022 1 1 Encounter Details Date Type Department Care Team (Late st Contact Info) Description 09/20/2021 10:00 AM DECORATIVE ENGRAVER Telemedicine [facility] Neuro Sleep [address] [place] [address] Sonia Conway MD PhD [address] [place] [address] DEANNE (obstructive sleep apnea) Social History Tobacco Use Types Packs/Day Years Used Date Smoking Tobacco: Former Cigarettes Q uit: 12/13/2019 Smokeless Tobacco: Never Comments Unknown Sex and Gender Information Value Date Recorded Sex Assigned at Not on file Legal Sex Female 6:46 AM DECORATIVE ENGRAVER Gender Identity Not on file Sexual Orientation Straight 03/05/2021 1: 44 PM CDT documented as of this encounter Patient Instructions * Patient Instructions* Sonia Conway MD PhD - 09/20/2021 10:00 AM DECORATIVE ENGRAVER Plan 1. Continue APAP 8-12 cm H2O using whenever sleeping. 2. Mask fitting appt to find mask that won't slip off/ 3. Discussed avoidance of driving while sleepy 4. Follow up in 1 year. PAP Cleaning Instructions: Daily Cleaning Wipe down your mask using a damp towel with mild detergent and warm water. Gently rinse with a clean towel and let the mask air-dry. You can also use pre-moistened towels designed specifically for cleaning CPAP masks. If your unit has a humidifier, empty any leftover water. Refill the humidifier with clean, distilled water right before bedtime. If you've been sick, wash your mask, tubing, humidifier and filter daily until your cold, flu or virus symptoms are gone. Weekly Cleaning Clean the CPAP tubing, nasal mask and headgear in a bathroom sink filled with warm water and a few drops of ammonia-free, mild dish detergent. Hang the tubing over the shower derick, on a towel rack or in the laundry room to ensure all the water drips out. (If a heated hose with electrical prongs, keep the end with the electrical prongs out of the water and dry.) The mask and headgear can be air-dried on a towel or hung on a hook or readers' advisory service librarian. Wipe down your CPAP machine with a damp cloth (not too damp or wet, as water could get into the machine). Clean the long-term filter by removing it and rinsing it in warm tap water. Squeeze it under the water to make sure there is no dust. Then blot down the filter with a towel. Don't wash your machine's white filter --those are disposable and should be replaced once a month, or sooner if it's dirty. Humidifier Every week empty any remaining water and then wash the water chamber in the sink with warm soapy water. Rinse well and drain out as much of the water as possible. Let the chamber air-dry before placing it back into the CPAP unit. Every other week you should disinfect the humidifier by soaking it in a solution of one part vinegar to five parts water for 30 minutes, thoroughly rinsing and then placing in your appliquer's top rack for washing. And keep it clean by using only distilled water to prevent mineral deposits that can build up and cause damage to your machine. Change disposable filters every 1-2 months. RATIVE ENGRAVER documented in this encounter Progress Notes * Sonia Conway MD PhD - 09/20/2021 10:00 AM CST This was a telemedicine visit with Lisa Roman alone which took place via Real-time video connection ([facility], Zoom or similar). During the visit, I (the attending physician) was located at home and the patient was located at home in [place]. I was with the patient during the telehealth sessionbeginning at 10:08 and ending at 10:49. In addition to the time spent during the session with the patient, I spent 10 minutes on the day of the visit prior to the visit and after the visit in direct care of the patient. Total time spend on encounter on the day of the visit by the ATTENDING PHYSICIAN: 51 minutes. (Thistime does not include time spent in any separately reportable services.) The patient (or parent/guardian if relevant) has been informed that the visit may not be secure andacknowledged the information. The option of participating in a telephone or video visit during the COVID-19 public health emergency was explained to them. After being given an opportunity to ask questions about and discuss this type of visit, the patient verbally consented to proceeding with the telephone/video visit. The patient understands that this service replaces an office visit. Patient Name: LISA ROMAN Medical Record Number (MRN): [id number] Date of (): 1955 Encounter Date: 09/20/2021 [facility] Chief Complaint Lisa Roman is a 66 y.o. female seen today for consultation regarding concern for sleep apnea. Referring provider: Conner Vale MD HPI 66 y.o. patient with COPD and dyspnea, hypertension, and CKD III who presents for DEANNE follow up. She initially presented in 02/2021 with morning headaches, daytime sleepiness with elevated (>10)[place] Sleepiness Scale, nocturia and poor sleep quality. She has had chronic pain from possible PMR and has been seen by cake maker. She fetl that her sleep is disrupted [...] She was ordered AutoPAP 8-12 cm H2O. This is her first follow up visit. Today: She reports that since her last visit she did have a few brief episodes of atrial fibrillation withRVR early in 2021 (new dx) and she has been started on Eliquis and diltiazem. She is doing well with this now, now is sinus rhythm. In regards to PAP, she loves it! She feels her sleep quality is much better and she feels much better rested in the morning. She is having some trouble with the mask slipping off her head. She is using a nasal pillows interface (AitFit N30 med). She is using a ponytail to try to help keep it in place, but still slips off multiple times a night. She is claustrophobic and worries about a bigger mask. Otherwise, minimal issues with leak. Only slight dry mouth/nose. She does use the humidifier. Weight has been stable since the study (202 today she reports). Compliance Data: Compliance download for last 30 days 08/19-09/17/2021 Device Settings- 8-12 cmH2O Days with Device Usage- 100% Median Usage on Days Used- 5 hours 43 min % Usage >=4 hours- 83% Median Pressure- 9.9 95% Pressure- 11.4 Max pressure- 11.7 Median leak- 10 95% leak- 33 Average AHI- 2.3 On most days, bedtime is 9:30-11PM, rise time is 0630 but she doesn't get out of bed until 0700, and she reads for 20-30 minutes then falls asleep in 2 minutes. She wakes up 2-4 times during the night, but only breifly. No longer having to get up for restroom visits except occasionally. She no longer takes naps! ESS is 10/04, significantly down from 07/06 prior to treatment. Prior data: ?? PFTs 12/07/2020: FEV1 of 2.25 L (81% of reference), FVC of 1.08 L (49% of reference), and FEV1/FVC of 48%. TLC is 117% of reference, with an RV of 175% of reference. DLCO was 70% of reference. Taken together, these tests are consistent with a severe obstructive ventilatory defect with air trapping. ?? 12/15/2020 BMP with CO2 of 23 ?? Echo 09/17/2019: LVEF >70%, grade II diastolic dysfunction, mild pulm HTN with PASP 39 mmHg Allergies Allergen Reactions ??? Novocain [Procaine] Anaphylaxis Heart races ??? [place] Nut Itching and Swelling ??? Cinnamon Flushing (skin) Current Outpatient Medications Medication Sig Dispense Refill ??? acetaminophen (TYLENOL) 500 mg tablet Take 500 mg by mouth every 6 (six) hours as needed for pain ??? albuterol (PROAIR RESPICLICK) 90 mcg/actuation inhaler Inhale 2 puffs every 6 (six) hours as needed for wheezing 1 Inhaler 11 ??? Anoro Ellipta 62.5-25 mcg/actuation blister with device Inhale 1 puff by mouth once daily 60 each 5 ??? atorvastatin (LIPITOR) 10 mg tablet Take 1 tablet (10 mg total) by mouth nightly 30 tablet 11 ??? calcium carbonate (OS-SHERLEY) 1,250 mg (500 mg elemental) tablet Take 2 tablets (2,500 mg total) by mouth daily (Patient taking differently: Take 1 tablet by mouth daily) 60 tablet 11 ??? cetirizine (ZyrTEC) 10 mg tablet Take 10 mg by mouth daily [employer] [facility] Allergy ??? chlorthalidone 25 mg tablet Take 0.5 tablets (12.5 mg total) by mouth daily 15 tablet 11 ??? cholecalciferol (VITAMIN D-3) 25 mcg (1,000 unit) tablet Take 1 tablet (1,000 Units total) by mouth daily 30 tablet 11 ??? diltiazem (TIAZAC) 120 mg 24 hr capsule Take 1 capsule (120 mg total) by mouth every morning 90capsule 3 ??? Eliquis 5 mg tablet Take 1 tablet (5 mg total) by mouth every 12 (twelve) hours 180 tablet 3 ??? lisinopriL (PRINIVIL,ZESTRIL) 10 mg tablet Take 1 tablet (10 mg total) by mouth daily 90 tablet1 No current facility-administered medications for this visit. Patient Active Problem List Diagnosis ??? Essential hypertension ??? Polyarthritis ??? Thyroid nodule ??? Stage 3a chronic kidney disease (HCC) ??? Shortness of breath ??? DEANNE (obstructive sleep apnea) ??? DERICK (renal osteodystrophy) ??? Other emphysema (CMS/HCC) (HCC) ??? Hyperlipidemia ??? Atrial fibrillation (CMS/HCC) (HCC) Past Medical History: Diagnosis Date ??? Arthritis ??? Atrial fibrillation (CMS/HCC) (HCC) ??? Chronic kidney disease ??? Hypertension ??? Obesity ??? Thyroid disease Past Surgical History: Procedure Laterality Date ??? REPAIR KNEE LIGAMENT Family History Problem Relation Age of Onset ??? Diabetes Mother ??? Asthma Mother ??? COPD Mother ??? Atrial fibrillation Mother ??? Hyperlipidemia Mother ??? COPD Father ??? Heart disease Father ??? Hypertension Father ??? 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 DEANNE (obstructive sleep apnea) Ambulatory referral to Neurology 66 y.o. female with severe COPD and dyspnea, hypertension, CKD III, and recently diagnosed Afib whofollows up for DEANNE currently treated with APAP 8-12 cm H2O. She is doing well with this treatment without significant problems tolerating the equipment except that the headgear keeps slipping off herhead. She has had symptomatic improvement in snoring, fatigue and difficulty sleeping and expressedcommitment to continuing treatment. We discussed how untreated DAENNE can cause unrefreshing sleep andexcessive daytime sleepiness, as well as how it contributes over the residential to cardiovascular risk, recalcitrant hypertension, and stroke risk. We spent a lot of time discussing mask fit as well as humidifier adjustments and reviewing her download tracing. I'm very pleased with how well she is doing with PAP, but I think with a different interface that doesn't slip, she will do even better. Plan 1. Continue APAP 8-12 cm H2O using whenever sleeping. 2. Mask fitting appt to find mask that won't slip off/ 3. Discussed avoidance of driving while sleepy 4. Follow up in 1 year. Return in about 1 year (around 09/20/2022) for routine sleep f/u, Video. No orders of the defined types were placed in this encounter. Thank you for allowing me to participate in the care of your patient. If you have any questions, feel free to contact me. Sincerely, Sonia Conway M.D., Ph.D., FAAN, FAASM Professor of Neurology Diplomate, [place] [employer]iat[employer] and Neu[employer] with added Qualifications in Sleep Medicine Portions of this note were generated using voice recognition technology and may be subject to air bag buffer error. RATIVE ENGRAVER documented in this encounter Plan of Treatment Scheduled Procedures Name Priority Associated Diagnoses Date/Ti me COLONOSCOPY Encounter for screening colonoscopy COLONOSCOPY Encounter for screening colonoscopy documented as of this encounter Visit Diagnoses Diagnosis DEANNE (obstructive sleep apnea) Obstructive sleep apnea (adult) (pediatric) documented in this encounter Orders Outpatient Referral Count Last Ordered Date Fir st Ordered Date AMB REFERRAL TO NEUROLOGY 1 09/20/2021 documented in this encounter Care Teams Controls Designer Relationship Specialty Start Date End Date Bull Taveras MD [address] [facility] [address] [place] [address] PCP - General Internal Medicine 08/24/20 documented as of this encounter
--- OUTSIDE RECORDS SUMMARY | 2024-07-14 22:34 | XMS_ITS | Encounter Summary ---
Author Organization [facility] Address [address] [place] [address] Phone Care Team Providers Care Helmet Coverer Name Role Phone Porsha Taveras MD Primary Care Provider [phone] Reason for Referral * Procedure (Routine) - Closed Specialty Diagnoses / Procedures Referred By Grecia paulino Referred To Contact Diagnoses Chronic obstructive pulmonary disease, unspecified COPD type (HCC) Chronic cough Procedures Pulmonary Function Test -[facility] Adult PFT Lab- [facility]; Spirometry, Oxygen Assessment Titration Conner Vale MD [address] [facility] [address] [place] [address] Phone: tel: fax: Referral ID Status Reason Start Date Expiration Date Visits Re quested Visits Authorized [id number] Closed 04/23/2022 05/23/2023 1 1 * MRI/CAT/PET Scan (Routine) - Closed Specialty Diagnoses / Procedures Referred By Grecia t Referred To Contact Radiology Diagnoses Chronic obstructive pulmonary disease, unspecified COPD type (HCC) Chronic cough Procedures CT Chest WO Contrast Conner Vale MD [address] [facility] [address] [place] [address] Phone: tel: fax: [facility] 1 [facility] [address] Referral ID Status Reason Start Date Expiration Date Visits Re quested Visits Authorized [id number] Closed 04/23/2022 05/23/2023 1 1 Reason for Visit * Consultation (Routine) - Closed Specialty Diagnoses / Procedures Referred By Contac t Referred To Contact Pulmonary Disease / Pulmonology Diagnoses Chronic obstructive pulmonary disease, unspecified COPD type (HCC) Porsha Taveras MD [address] [facility] [address] [place] [address] Phone: tel: fax: [facility] (All Locations) Referral ID Status Reason Start Date Expiration Date V isits Requested Visits Authorized [id number] Closed Specialty Services Required 04/15/2022 02/09/2023 12 12 Encounter Details Date Type Department Care Team (Late st Contact Info) Description 04/23/2022 4:00 PM CDT Office Visit [facility] Pulmonary [address] [facility] 8th [place] [address] [place] [address] Conner Vale MD [address] [facility] [address] [place] [address] Chronic cough (Primary Dx); Chronic obstructive pulmonary disease, unspecified COPD type (HCC) Social History Tobacco Use Types Packs/Day Years Used Date Smoking Tobacco: Former Cigarettes Q uit: 12/13/2019 Smokeless Tobacco: Never Comments Unknown Sex and Gender Information Value Date Recorded Sex Assigned at Not on file Legal Sex Female 6:46 AM LOADING UNIT OPERATOR Gender Identity Not on file Sexual Orientation Straight 03/05/2021 1: 44 PM CDT documented as of this encounter Last Filed Vital Signs Vital Sign Reading Time Taken Comments Blood Pressure 117/76 04/23/2022 4:11 PM CDT Pulse 76 04/23/2022 4:11 PM CDT Temperature 36.1 ??C (96.9 ??F) 04/23/2022 4:11 PM CD T Respiratory Rate 18 04/23/2022 4:11 PM CDT Oxygen Saturation 97% 04/23/2022 4:11 PM CDT room air Inhaled Oxygen Concentration - - Weight 90.3 kg (199 lb) 04/23/2022 4:11 PM CDT Height 163.8 cm (5' 4.5 ) 04/23/2022 4:11 PM CDT Body Mass Index 33.63 04/23/2022 4:11 PM CDT documented in this encounter Patient Instructions * Patient Instructions* Conner Vale MD - 04/23/2022 4:00 PM CDT Flonase 1 spray to each nostril every night documented in this encounter Progress Notes * Conner Vale MD - 04/23/2022 12:00 AM CDT PATIENT NAME: LISA ROMAN : 1955 MARY: 04/23/2022 PROBLEM LIST: 1. Chronic obstructive pulmonary disease with a severe obstructive ventilatory defect. 2. Hospitalization for respiratory illness in September 2019. a. Etiology never elicited. b. May have been COVID-19. 3. Chronic kidney disease 3. 4. Hypertension. 5. Arthritis in her knees, elbows, and hands. 6. Prior tobacco use. a. Smoked for 50+ years anywhere from half a pack per day to 1 pack per day. b. Quit in 2019. 7. Obstructive sleep apnea, on CPAP therapy. 8. Atrial fibrillation. a. Currently on anticoagulation. 9. Thyroid nodules. a. Benign on biopsy. INTERVAL HISTORY: Ms. Roman is a pleasant 67-year-old female who [facility] a [facility] of severe COPD. Since last being seen in December 2019, she denies any hospitalizations, primary care or emergency room visits for any pulmonary complaints. Of note, she was seen in the ER approximately 7 to 8 months ago with new-onset atrial fibrillation. In addition, after seeing us last, she underwent a thyroid nodule biopsy which was benign. She was also on longstanding prednisone when we saw her last and weaned off sometime around February 2021. She presents today and denies any shortness of breath at rest. With respect to dyspnea on exertion, she has none with dressing or showering. She has mild-to-m oderate dyspnea with housework depending on her level of exertion. She is able to walk up 1 flight of stairs without stopping, but does become moderately short of breath at the top. When asked about exercise, she says she walks very infrequently. She is coughing almost daily. It is dry or occasionally productive of clear mucus. She denies any hemoptysis. It is most frequent in the mornings, but does occur throughout the day. She has intermittent rhinitis but is complaining of significant postnasal drainage. She denies any GERD. She does notice wheezing on occasion with exertion. She denies any fevers, chills, nausea, vomiting, or diarrhea. No night sweats. Her weight is stable and her appetite is good. She has had 4 COVID shots and has had a flu shot this year. However, she says she got it over a month ago, which sounds early. MEDICATIONS: 1. Atorvastatin. 2. Calcium carbonate. 3. Cetirizine 10 mg p.o. at bedtime (she will occasionally alternate this with other antihistamines, but does not use them simultaneously). 4. Chlorthalidone. 5. Diltiazem. 6. Eliquis 5 mg p.o. b.i.d. 7. Lisinopril. 8. Magnesium oxide. 9. Potassium gluconate. 10. Albuterol 2 puffs q.i.d. p.r.n., which she is using 3 to 4 times a day scheduled and not necessarily for symptom management. 11. Anoro 62.5/25 one puff daily. PHYSICAL EXAMINATION: Vital Signs: Blood pressure 117/76, heart rate 76 and regular, respiratory rate 16, no distress on room air. Temperature is 97.6. SpO2 is 97% on room air. Weight is 199 pounds with a BMI of 33.6. Head and Neck: Pupils equal and reactive to light, extraocular motion intact. There is no rhinitis,sinusitis, or conjunctivitis. There is granular pharyngitis. Trachea is central. There is no jugular venous distention. No significant cervical or supraclavicular lymphadenopathy. Respiratory: Normal to percussion bilaterally. Good breath sounds bilaterally without wheezes or crackles. Cardiovascular: No RV heave. Regular rate and rhythm. No murmurs, rubs, or gallops. Abdominal: Soft, nontender, nondistended, with normoactive bowel sounds. Extremities: No clubbing, cyanosis, or edema. Good peripheral pulses and perfusion. LABORATORY DATA: 1. Pulmonary function tests: FEV1 is 1.44 L (63% predicted) and FVC is 2.60 L (88% predicted), for an FEV1/FVC ratio of 55%. Flows are decreased at middle and lower lung volumes. On the basis of these pulmonary function tests, there is a moderate obstructive ventilatory defect. When compared to pulmonary function testing dated 12/07/2020, there has been a significant improvement in the obstructive ventilatory defect. 2. Six-minute walk: On room air at rest, SpO2 is normal, and with effort sufficient to increase heart rate from 82 to 103, remains stable. On this basis, there is no requirement for supplemental oxygen either at rest or with exertion. There is no significant change in post-exercise FEV1 or blood pressure. Distance walked was 1175 feet. ASSESSMENT: Ms. Rmoan is a pleasant 67-year-old female who [facility] for a diagnosis of chronic obstructive pulmonary disease. She presents today with relatively stable symptoms and a significant improvement in her pulmonary function. It does appear that she is using her albuterol in excess. PLAN: 1. COPD. Given her improvement in pulmonary function tests, we will continue with her Anoro. I did ask her to re-evaluate her use of her albuterol. She is taking it up to 4 times a day scheduled on the advice of her brother, who told her to use it before she becomes short of breath. I asked her to back this down to twice a day scheduled, and if she is not requiring it any in addition, to continuebacking down and to try use it only as needed. She is welcome to call us with reports on her progress. 2. Lung cancer screening. Given her significant smoking history, she is overdue for a repeat lung cancer screening CT. This will be ordered today. 3. Health maintenance. She is current with the flu shot. Given the timing that she reports, I did ask her to confirm that it was in fact a flu shot. She has had her fourth COVID shot approximately 3 months ago, and so will be eligible for the COVID bivalent booster in approximately 1 month if she desires it. 4. Return office visit will be in 6 months, or sooner if the need arises. ELECTRONICALLY SIGNED - 04/24/2022 01:39 PM Conner Vale M.D. programmer analyst health it /mts cc: PORSHA TAVERAS M.D. [address] [place] [address] documented in this encounter Plan of Treatment Scheduled Procedures Name Priority Associated Diagnoses Date/Ti me COLONOSCOPY Encounter for screening colonoscopy COLONOSCOPY Encounter for screening colonoscopy documented as of this encounter Results * Pulmonary Function Test - (11/12/2022 3:30 PM CDT) FVC PRE 2.48 L [facility] FVC %PRE PRED 84 % [facility] FEV1 PRE 1.24 L [facility] FEV1 %PRE PRED 54 % [facility] FEV1/FVC PRE 50.0 % [facility] Anatomical Region Laterality Modality PFT 11/12/2022 3:12 PM CDT Narrative 11/17/2022 8:25 PM CDT Table formatting from the original result was not included. [facility] Division of Pulmonary & Critical Care Medicine [address] [place] [address]; [place] [address]; [place], [place] ??[address]; [phone] Pulmonary Function Laboratory Pulmonary Stress Test Simple/Oxygen Assessment Patient: Lisa Roman Date: No visit date found. : 1955 [...] Work [distance (m) x body wt (kg)]: 18080 kg.m (normal >60,000kg.m) Oxygen required to maintain [...] with the written final report. PFT performed at:->[facility] Adult PFT Lab- [facility] Procedure:->Spirometry Procedure:->Oxygen Assessment Titration Conner Vale MD PFT ORDERABLES Final Result * CT Chest WO Contrast (04/25/2022 10:19 [...] by: Michael Velázquez M.D. Conner Vale MD [facility] PROCEDURES Final Result documented in this encounter Visit Diagnoses Diagnosis Chronic cough- Primary Cough Chronic obstructive pulmonary disease, unspecified COPD type (HCC) Chronic obstructive pulmonary disease, unspecified COPD type (HCC) Chronic cough Cough Chronic obstructive pulmonary disease, unspecified COPD type (HCC) Chronic cough Cough documented in this encounter Orders Outpatient Referral Count Last Ordered Date Fir st Ordered Date AMB REFERRAL TO PULMONOLOGY 1 04/23/2022 documented in this encounter Care Teams Helmet Coverer Relationship Specialty Start Date End Date Porsha Taveras MD [address] [place] [address] PCP - General Internal Medicine 08/24/20 documented as of this encounter
--- OUTSIDE RECORDS SUMMARY | 2024-07-14 22:34 | XMS_ITS | Encounter Summary ---
Author Organization [facility] Address [address] [place] [address] Care Team Providers Care Pediatric Oncologist Name Role Phone Bull Taveras MD Primary Care Provider [phone] Encounter Details Date Type Department Care Team (Late st Contact Info) Description 01/24/2022 [facility] [address] [facility] [address] [place] [address] Bull Taveras MD [address] [facility] [address] [place] [address] Social History Tobacco Use Types Packs/Day Years Used Date Smoking Tobacco: Former Cigarettes Q uit: 12/13/2019 Smokeless Tobacco: Never Comments Unknown Sex and Gender Information Value Date Recorded Sex Assigned at Not on file Legal Sex Female 6:46 AM TELEPHONE ORDER CLERK Gender Identity Not on file Sexual Orientation Straight 03/05/2021 1: 44 PM CDT documented as of this encounter Miscellaneous Notes * Telephone Encounter - Lisa Cortés MA - 01/24/2022 9:13 AM CDT Pt aware/mk * Telephone Encounter - Lisa Cortés MA - 01/24/2022 9:13 AM CDT ----- Message from Bull Taveras MD sent at 01/10/2022 4:35 PM CDT ----- Nodules are unchanged, has no compression symptoms Recheck 1 year documented in this encounter Plan of Treatment Scheduled Procedures Name Priority Associated Diagnoses Date/Ti ks COLONOSCOPY Encounter for screening colonoscopy COLONOSCOPY Encounter for screening colonoscopy documented as of this encounter Visit Diagnoses Not on filedocumented in this encounter Care Teams Pediatric Oncologist Relationship Specialty Start Date End Date Bull Taveras MD [address] [address] PCP - General Internal Medicine 08/24/20 documented as of this encounter
--- OUTSIDE RECORDS SUMMARY | 2024-07-14 22:34 | XMS_ITS | Encounter Summary ---
Author Organization [facility] Address [address] [place] [address] Care Team Providers Care Plastic Surgery Coordinator Name Role Phone Bull Taveras MD Primary Care Provider [phone] Encounter Details Date Type Department Care Team (Late st Contact Info) Description 12/21/2021 [facility] [address] [facility] [address] [place] [address] Pooja Chapman, ZIA [address] [facility] [address] [place], [place] [id number] Social History Tobacco Use Types Packs/Day Years Used Date Smoking Tobacco: Former Cigarettes Q uit: 12/13/2019 Smokeless Tobacco: Never Comments Unknown Sex and Gender Information Value Date Recorded Sex Assigned at Not on file Legal Sex Female 6:46 AM 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 Sent. documented in this encounter Plan of Treatment Scheduled Procedures Name Priority Associated Diagnoses Date/Ti nd COLONOSCOPY Encounter for screening colonoscopy COLONOSCOPY Encounter for screening colonoscopy documented as of this encounter Visit Diagnoses Not on filedocumented in this encounter Discontinued Medications Medication Sig Discontinue Reason Start Date End Da te Anoro Ellipta 62.5-25 mcg/actuation blister with device Inhale 1 puff by mouth once daily Reorder 06/20/2021 12/21/2021 documented as of this encounter Care Teams Plastic Surgery Coordinator Relationship Specialty Start Date End Date Bull Taveras MD [address] [place] [address] PCP - General Internal Medicine 08/24/20 documented as of this encounter
--- OUTSIDE RECORDS SUMMARY | 2024-07-14 22:34 | XMS_ITS | Encounter Summary ---
Author Organization [facility] Address [address] [place] [address] Phone Care Team Providers Care Boat Hoist Operator Name Role Phone Bull Taveras MD Primary Care Provider [phone] Reason for Referral * Procedure (Routine) - Closed Specialty Diagnoses / Procedures Referred By Contac t Referred To Contact Diagnoses Airway obstruction Abnormal PFTs (pulmonary function tests) Shortness of breath Procedures Pulmonary Function Test -[facility]- [facility]; Spirometry, Oxygen Assessment Titration Conner Vale MD [address] [place] [address] Phone: tel: fax: Referral ID Status Reason Start Date Expiration Date Visits Re quested Visits Authorized [id number] Closed 03/27/2022 04/26/2023 1 1 Encounter Details Date Type Department Care Team (Late st Contact Info) Description 03/27/2022 Orders Only [facility] Pulmonary [address] [facility] 8th [place] [address] [place] [address] Conner Vale MD [address] [place] [address] Airway obstruction (Primary Dx); Abnormal PFTs (pulmonary function tests); Shortness of breath Social History Tobacco Use Types Packs/Day Years Used Date Smoking Tobacco: Former Cigarettes Q uit: 12/13/2019 Smokeless Tobacco: Never Comments Unknown Sex and Gender Information Value Date Recorded Sex Assigned at Not on file Legal Sex Female 6:46 AM PROOFREADER Gender Identity Not on file Sexual Orientation Straight 03/05/2021 1: 44 PM CDT documented as of this encounter Plan of Treatment Scheduled Procedures Name Priority Associated Diagnoses Date/Ti co COLONOSCOPY Encounter for screening colonoscopy COLONOSCOPY Encounter for screening colonoscopy documented as of this encounter Results * Pulmonary Function Test - (04/23/2022 3:28 PM CDT) FVC PRE 2.60 L [facility] FVC %PRE PRED 88 % [facility] FEV1 PRE 1.44 L [facility] FEV1 %PRE PRED 63 % [facility] FEV1/FVC PRE 55.2 % [facility] Anatomical Region Laterality Modality PFT 04/23/2022 3:10 PM CDT Narrative 04/25/2022 11:08 PM CDT Table formatting from the original result was not included. [facility] Division of Pulmonary & Critical Care Medicine [address] [place] [address]; [place] [address]; [place], [place] ??[address]; [phone] Pulmonary Function Laboratory Pulmonary Stress Test Simple/Oxygen [...] Work [distance (m) x body wt (kg)]: 76847 kg.m (normal >60,000kg.m) Oxygen required to maintain [...] with the written final report. PFT performed at:->[facility] Adult PFT [facility]- [facility] Procedure:->Spirometry Procedure:->Oxygen Assessment Titration Conner Vale MD PFT ORDERABLES Final Result documented in this encounter Visit Diagnoses Diagnosis Airway obstruction- Primary Other diseases of respiratory system, not elsewhere classified Abnormal PFTs (pulmonary function tests) Nonspecific abnormal results of pulmonary system function study Shortness of breath Airway obstruction Other diseases of respiratory system, not elsewhere classified Abnormal PFTs (pulmonary function tests) Nonspecific abnormal results of pulmonary system function study Shortness of breath documented in this encounter Care Teams Boat Hoist Operator Relationship Specialty Start Date End Date Bull Taveras MD [address] [address] PCP - General Internal Medicine 08/24/20 documented as of this encounter
--- OUTSIDE RECORDS SUMMARY | 2024-07-14 22:34 | XMS_ITS | Encounter Summary ---
Author Organization [facility] Address [address] [place] [address] Care Team Providers Care Optics Manufacturing Technician Name Role Phone Bull Taveras MD Primary Care Provider Encounter Details Date Type Department Care Team (Late st Contact Info) Description 06/26/2022 Orders [facility] [address] [facility] [address] [place] [address] Pooja Chapman, ZIA [address] [facility] [address] [place], [place] [id number] Social History Tobacco Use Types Packs/Day Years Used Date Smoking Tobacco: Former Cigarettes Q uit: 12/13/2019 Smokeless Tobacco: Never Comments Unknown Sex and Gender Information Value Date Recorded Sex Assigned at Not on file Legal Sex Female 6:46 AM IN 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 Gender Identity Not on file Sexual Orientation Straight 03/05/2021 1: 44 PM CDT documented as of this encounter Ordered Prescriptions Prescription Sig Dispense Quantity Refills Last Filled Start Date End Date lisinopriL (PRINIVIL,ZESTRIL) 10 mg tablet Take 1 tablet (10 mg total) by mouth daily 90 tablet 3 06/26/2022 06/15/2023 documented in this encounter Plan of Treatment Scheduled Procedures Name Priority Associated Diagnoses Date/Ti me COLONOSCOPY Encounter for screening colonoscopy COLONOSCOPY Encounter for screening colonoscopy documented as of this encounter Visit Diagnoses Not on filedocumented in this encounter Discontinued Medications Medication Sig Discontinue Reason Start Date End Da te lisinopriL (PRINIVIL,ZESTRIL) 10 mg tablet Take 1 tablet (10 mg total) by mouth daily Reorder 03/20/2021 06/26/2022 documented as of this encounter Care Teams Optics Manufacturing Technician Relationship Specialty Start Date End Date Bull Taveras MD [address] [address] PCP - General Internal Medicine 08/24/20 documented as of this encounter
--- OUTSIDE RECORDS SUMMARY | 2024-07-14 22:34 | XMS_ITS | Encounter Summary ---
Author Organization [facility] Address [address] [place] [address] Phone Care Team Providers Care Army Senior Officer Name Role Phone Bull Taversa MD Primary Care Provider [phone] Encounter Details Date Type Department Care Team (Late st Contact Info) Description 09/05/2022 Telephone [facility] [address] [facility] 8th [place] [address] [place] [address] Kalia Mcconnell MD [address] [facility] [address] [place], [place] [id number] Social History Tobacco Use Types Packs/Day Years Used Date Smoking Tobacco: Former Cigarettes Q uit: 12/13/2019 Smokeless Tobacco: Never Comments Unknown Sex and Gender Information Value Date Recorded Sex Assigned at Not on file Legal Sex Female 6:46 AM ASSOCIATE STORE MANAGER Gender Identity Not on file Sexual Orientation Straight 03/05/2021 1: 44 PM CDT documented as of this encounter Miscellaneous Notes * Telephone Encounter - Jennifer Fletcher - 09/10/2022 10:17 AM ASSOCIATE STORE MANAGER Confirmed with pt 1130 on 10/08 CIATE STORE MANAGER * Telephone Encounter - Noemi Huff - 09/05/2022 10:53 AM CST Pt calling back stating October 08 works for her please call back with time. CIATE STORE MANAGER * Telephone Encounter - Jennifer Fletcher - 09/05/2022 10:31 AM ASSOCIATE STORE MANAGER LM to reschedule 10/01 appt CIATE STORE MANAGER documented in this encounter Plan of Treatment Scheduled Procedures Name Priority Associated Diagnoses Date/Ti me COLONOSCOPY Encounter for screening colonoscopy COLONOSCOPY Encounter for screening colonoscopy documented as of this encounter Visit Diagnoses Not on filedocumented in this encounter Care Teams Army Senior Officer Relationship Specialty Start Date End Date Bull Taveras MD [address] [address] PCP - General Internal Medicine 08/24/20 documented as of this encounter
--- OUTSIDE RECORDS SUMMARY | 2024-07-14 22:34 | XMS_ITS | Encounter Summary ---
Author Organization [facility] Healthcare Address [address] [place] [address] Care Team Providers Care Bible Reader Name Role Phone Bull Taveras MD Primary Care Provider [phone] Reason for Referral * Diagnostic Imaging (Routine) - Closed Specialty Diagnoses / Procedures Referred By Contac t Referred To Contact Diagnoses Thumb pain, right Procedures X-ray wrist right 3+ views Odell Lopez MD Phone: tel: fax: [facility] Referral ID Status Reason Start Date Expiration Date Visits Re quested Visits Authorized [id number] Closed 05/17/2022 06/16/2023 1 1 Reason for Visit * Diagnostic Imaging (Routine) - Closed Specialty Diagnoses / Procedures Referred By Contac t Referred To Contact Diagnoses Thumb pain, right Procedures X-ray wrist right 3+ views Odell Lopez MD Phone: tel: fax: [facility] [place] Referral ID Status Reason Start Date Expiration Date Visits Re quested Visits Authorized [id number] Closed 05/17/2022 06/16/2023 1 1 Encounter Details Date Type Department Care Team (Latest Contact Info) Description 05/17/2022 9:56 AM CDT - 05/17/2022 11:59 PM CDT Hospital Encounter [facility] [address] [place] [address] Odell Lopez MD [address] [facility] [address] [place] [address] Thumb pain, right Discharge Disposition: Discharge to home or self care Social History Tobacco Use Types Packs/Day Years Used Date Smoking Tobacco: Former Cigarettes Q uit: 12/13/2019 Smokeless Tobacco: Never Comments Unknown Sex and Gender Information Value Date Recorded Sex Assigned at Not on file Legal Sex Female 6:46 AM PROCESS IMPROVEMENT 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 Electronically signed by: Carlos Bojorquez M.D. Odell Lopez MD IMG XR PROCEDURES Final Resul t documented in this encounter Visit Diagnoses Diagnosis Thumb pain, right documented in this encounter Care Teams Bible Reader Relationship Specialty Start Date End Date Bull Taveras MD [address] [address] PCP - General Internal Medicine 08/24/20 documented as of this encounter
--- OUTSIDE RECORDS SUMMARY | 2024-07-14 22:34 | XMS_ITS | Encounter Summary ---
Author Organization [facility] Address [address] [place] [address] Phone Care Team Providers Care Assayer Name Role Phone Bull Taveras MD Primary Care Provider [phone] Encounter Details Date Type Department Care Team (Late st Contact Info) Description 08/28/2022 Orders Only [facility] Pulmonary [address] [facility] 8th [place] [address] [place] [address] Nahomi Boyce RN Social History Tobacco Use Types Packs/Day Years Used Date Smoking Tobacco: Former Cigarettes Q uit: 12/13/2019 Smokeless Tobacco: Never Comments Unknown Sex and Gender Information Value Date Recorded Sex Assigned at Not on file Legal Sex Female 6:46 AM SAMPLE COLOR MAKER Gender Identity Not on file Sexual Orientation Straight 03/05/2021 1: 44 PM CDT documented as of this encounter Ordered Prescriptions Prescription Sig Dispense Quantity Refills Last Filled Start Date End Date albuterol HFA (Ventolin HFA) 90 mcg/actuation inhaler Inhale 2 puffs every 4 (four) hours as needed for wheezing or shortness of breath 18 g 5 08/28/2022 3 umeclidinium-vilan teroL (Anoro Ellipta) 62.5-25 mcg/actuation blister with device Inhale 1 puff daily 60 each 5 08/28/2022 documented in this encounter Plan of Treatment Scheduled Procedures Name Priority Associated Diagnoses Date/Ti me COLONOSCOPY Encounter for screening colonoscopy COLONOSCOPY Encounter for screening colonoscopy documented as of this encounter Visit Diagnoses Not on filedocumented in this encounter Discontinued Medications Medication Sig Discontinue Reason Start Date End Da te ProAir RespiClick 90 mcg/actuation inhaler INHALE 2 PUFFS BY MOUTH EVERY 6 HOURS NEEDED FOR WHEEZING 04/23/2022 08/28/2022 Anoro Ellipta 62.5-25 mcg/actuation blister with device Inhale 1 puff by mouth once daily Reorder 06/21/2022 08/28/2022 documented as of this encounter Care Teams Assayer Relationship Specialty Start Date End Date Bull Taveras MD [address] [place] [address] PCP - General Internal Medicine 08/24/20 documented as of this encounter
--- OUTSIDE RECORDS SUMMARY | 2024-07-14 22:35 | XMS_ITS | Encounter Summary ---
Author Organization [facility] Address [address] [place] [address] Phone Care Team Providers Care Art Dealer Name Role Phone Bull Taveras MD Primary Care Provider [phone] Encounter Details Date Type Department Care Team (Late st Contact Info) Description 08/28/2021 Telephone [facility] Cardiology [address] [facility] Advanced Medicine 8th [place] [address] [place] [address] Josse Moran Social History Tobacco Use Types Packs/Day Years Used Date Smoking Tobacco: Former Cigarettes Q uit: 12/13/2019 Smokeless Tobacco: Never Comments Unknown Sex and Gender Information Value Date Recorded Sex Assigned at Not on file Legal Sex Female 6:46 AM HOT WORKER Gender Identity Not on file Sexual Orientation Straight 03/05/2021 1: 44 PM CDT documented as of this encounter Miscellaneous Notes * Telephone Encounter - Katya Thompson - 08/31/2021 1:36 PM CST PCP/Referring MD on [facility]. Echo report in [facility](requested images). Requested records from [facility] WORKER * Telephone Encounter - Anni Chapa, [facility] - 08/31/2021 10:20 AM HOT WORKER Came to [facility] by mistake WORKER * Telephone Encounter - Josse Moran - 08/28/2021 4:09 PM CST What ins do you carry/spec billing? [facility] Diagnosis/Reason for Appointment: New onset afib Best Contact Number for Patient: [phone] Relation: Primary Care Physician: Dr Taveras PCP Ph: Referring Physician: pcp Ref Ph: If Referring MD is not PCP, list specialty: Triage Questions Yes No Who/Where/When/Notes IF PATIENT IS REQUESTING CARDIOLOGY COVID CLINIC (General COVID Clinic phone: [phone]) Have you had COVID-19? [] [] If yes, did your cardiac symptoms start after infection? [] [] Have you ever been diagnosed with cancer and undergone radiation or chemotherapy treatments? [] [x]If 'Yes', Schedule first available with Cardio-Oncology Have you ever seen a Fish Peddler in an office setting? [] [x] If yes, where were you treated? If yes, is this a heart condition you've had since childhood? [] [x] IF SCHEDULING PATIENT WITH LEONORA OR LUIS Have you had a baby in the last year or are you ? [] [x] Have you had heart or blood pressure problems during a previous ? [] [x] Are you planning on transferring care to a MD or are you looking for a second opinion on your current diagnosis? [] 2nd Opinion (Appts will be CX if records not received 48hrs prior to appt) []Transferring Care to Patient History Questions Yes No Where/When/Notes Have you EVER been hospitalized for ANY cardiac issue? [] [x] Have you ever had an EKG? [x] [] Waldemar Last Friday. Have you ever had a stress test? [] [x] Have you ever had an echo? [] [x] Have you ever worn a heart monitor at home? [] [x] Have you ever had a Cardiac Cath? [] [x] Have you ever had a Cardiac Surgery (including ablations, cardioversions, CABG, etc.)? [] [x] Have you ever had a sleep study? [] [x] Do you have a device? If yes what type? (Pacemaker, Defibrillator, Implanted Loop Recorder) [] [x] If yes, where and when was device put in? Academic Support Specialist? ([employer], [employer], [employer]) Notes: Appointment Date: 09/18/2021 Type: Provider: Dr Benito Location: [facility] [x] Confirm appt date, time, provider and location. [x] Advise pt to arrive 15- 20 min early. [x] Advise patient to bring medications/list, photo ID and insurance card [x] Advise of New PatientPacket being mailed to them. [x] Children younger than age 12 will not be permitted except under extraordinary circumstances. Patients with clinical appointments may have 1 support person/caregiver who can participate in exam room questions and care. [x] Patients and visitors are expected to wear a mask upon building entry and while inside the facility. WORKER documented in this encounter Plan of Treatment Scheduled Procedures Name Priority Associated Diagnoses Date/Ti nh COLONOSCOPY Encounter for screening colonoscopy COLONOSCOPY Encounter for screening colonoscopy documented as of this encounter Visit Diagnoses Not on filedocumented in this encounter Care Teams Art Dealer Relationship Specialty Start Date End Date Bull Taveras MD [address] [facility] [address] [place] [address] PCP - General Internal Medicine 08/24/20 documented as of this encounter
--- OUTSIDE RECORDS SUMMARY | 2024-07-14 22:35 | XMS_ITS | Encounter Summary ---
Author Organization [facility] Address [address] [place] [address] Phone Care Team Providers Care Sleeper Cutter Name Role Phone Bull Taveras MD Primary Care Provider [phone] Reason for Referral * Sleep Medicine (Routine) - Closed Specialty Diagnoses / Procedures Referred By Grecia paulino Referred To Contact Diagnoses Hypersomnolence Nocturia Procedures PSG-Sleep Provider Use Only Jia Bourne MD Phone: tel: fax: [facility] (All Locations) Referral ID Status Reason Start Date Expiration Date Visits Re quested Visits Authorized [id number] Closed 04/18/2021 04/07/2022 1 1 Reason for Visit * Consultation (Routine) - Closed Specialty Diagnoses / Procedures Referred By Grecia paulino Referred To Contact Sleep Medicine Diagnoses DEANNE (obstructive sleep apnea) Conner Vale MD [address] [place] [address] Phone: tel: fax: [facility] Neuro Sleep [address] [facility] 6th [address] [place] [address] Phone: tel: fax: Referral ID Status Reason Start Date Expiration Date V isits Requested Visits Authorized [id number] Closed Specialty Services Required 12/26/2020 01/25/2022 1 1 Encounter Details Date Type Department Care Team (Latest Contact Info) Description 03/08/2021 10:00 AM CDT Telemedicine [facility] Neuro Sleep [address] [facility] 6th [address] [place] [address] Sonia Conway MD PhD [address] [place] [address] Hypersomnolence (Primary Dx); Nocturia; Chronic obstructive pulmonary disease, unspecified COPD type (HCC) Social History Tobacco Use Types Packs/Day Years Used Date Smoking Tobacco: Former Cigarettes Q uit: 12/13/2019 Smokeless Tobacco: Never Comments Unknown Sex and Gender Information Value Date Recorded Sex Assigned at Not on file Legal 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 In lab polysomnogram, split night to evaluate for sleep apnea. Although patient has severe COPD,recent BMP had a normal bicarb level (23). Due to this low value, no significant concern for nocturnal hypoventilation, so will not add tcCO2 monitoring. 2. Discussed avoidance of driving while sleepy 3. Follow up pending polysomnogram You will be called to set up the study. You can also call [phone] and push option for scheduling to schedule yourself (let them know Dr. Conway ordered a study). documented in this encounter Progress Notes * Sonia Conway MD PhD - 03/08/2021 10:00 AM CDT This was a telemedicine visit with Lisa Roman alone which took place via Real-time video connection (InTouch, Zoom or similar). During the visit, I (the attending physician) was located in [place], the resident/fellow was located in [place], and the patient was located in [place]. I was withthe patient during the telehealth session beginning at 10:27 and ending at 10:38. In addition to the time spent during the session with the patient, I spent 11 minutes on the day of the visit on other activities related to the visit such as preparing to see the patient, counseling and educating thepatient/family/caregiver, ordering medications, tests, or procedures, referring and communicating with other healthcare professionals, documenting clinical information in the electronic or other health record, independently interpreting results and communicating the results to the patient/family/caregiver, and/or on care coordination. Total time spend on encounter on the day of the visit by the ATTENDING PHYSICIAN: 22 minutes. The patient has been informed that the visit may not be secure and acknowledged the information. It was explained to the patient that they have the option of participating in a telephone or video visit during the [address] emergency. After being given an opportunity to ask questionsabout and discuss this type of visit, the patient verbally consented to proceeding with the telephone / video visit. The patient understands that this service replaces an office visit and they may bebilled and/or responsible for any applicable copayments. The resident/fellow talked to the patient during this telehealth encounter, we discussed their findings, and then we called/contacted the patient together. I personally was on the phone/video for thetime period given above. I agree with the findings and plan of care as documented in the resident/fellow's note which I have edited as needed. Greater than 50% of any time I spent on the call/video was spent in counseling and/or coordination of care as documented in the note. Patient Name: ILSA ROMAN Medical Record Number (MRN): [id number] Date of (): 1955 Encounter Date: 03/08/2021 [facility] Chief Complaint Lisa Roman is a 66 y.o. female seen today for consultation regarding concern for sleep apnea. Referring provider: Conner Vale MD HPI 66 y.o. patient with COPD and dyspnea, hypertension, and CKD III who presents for evaluation of daytime sleepiness and difficulty sleeping. She feels that she has had periods where she doesn't sleep very well. She has had chronic pain frompossible PMR and has been seen by hand profiler. She feels that her sleep is disrupted from pain. She has been started on prednisone. She thinks she has gained 50 lbs in the last year and a half since starting. She does not know if she snores. She has not been witnessed to stop breathing. She has not had a bed partner in a very long time. She does not wake up gasping for air. She does wake up with a snort rarely. She has frequent morning headaches. She feels that the headache seems like a sinus headache. She does have a lot of allergies and sinus congestion. However, she feels like she is usually ableto breathe through her nose. Sleep is not restless. She does not have vivid dreams. She endorses somniloquy but not somnambulism. She used to have vocalizations during bad dreams. She is not sure if she still has this. She does not act out dreams. She has not had symptoms of cataplexy, sleep-related hallucinations, or sleep paralysis. She does not have an uncomfortable sensation in the legs which is relieved by movement/stretching. She is not aware of leg jerks during sleep. She will wake up with leg cramps. She has taken magnesium supplements in the past for this. On most days, bedtime is 11PM, rise time is 0630 but she doesn't get out of bed until 0700, and shetakes 5-10 minutes to fall asleep. She wakes up 2-3 times during the night due to pain, she will also wake up for nocturia 2-3 times a night. It takes < 5 minutes for her to fall back asleep. She does usually take naps daily. Naps are 45 minutes in length and are intentional. She feels unrefreshed when she wakes in the morning. She is liable to doze unintentionally while insedentary situations. Sleepiness has not affected work. She has not dozed off while driving. Situation Chance of dozing Sitting and reading 2 Watching TV 2 Sitting, inactive in a public place (e.g. a theater or a meeting) 1 As a passenger in a car for an hour without a break 1 Lying down to rest in the afternoon when circumstances permit 3 Sitting and talking to someone 1 Sitting quietly after a lunch without alcohol 2 In a car, while stopped for a few minutes in traffic 0 Total 12 Total [place] Sleepiness Scale Score: 07/06, which indicates abnormally high sleepiness. ?? PFTs 12/07/2020: FEV1 of 2.25 L [...] Reactions ??? Novocain [Procaine] Anaphylaxis Heart races Current Outpatient Medications Medication Sig Dispense Refill ??? acetaminophen (TYLENOL) 500 mg tablet Take 500 mg by mouth every 6 (six) hours as needed for pain ??? albuterol (PROAIR RESPICLICK) 90 mcg/actuation inhaler Inhale 2 puffs every 6 (six) hours as needed for wheezing 1 Inhaler 11 ??? calcium carb-D3-mag ox-zinc ox 333 mg-133 unit -133 mg-5 mg tablet Take by mouth daily ??? cetirizine (ZyrTEC) 10 mg tablet Take 10 mg by mouth daily [employer] Allergy ??? hydrOXYchloroQUINE (PLAQUENIL) 200 mg tablet Take 200 mg by mouth 2 (two) times a day ??? lisinopriL (PRINIVIL,ZESTRIL) 10 mg tablet Take 10 mg by mouth daily ??? magnesium oxide 400 mg magnesium capsule Take 400 mg by mouth daily ??? predniSONE (DELTASONE) 5 mg tablet TAKE 1 TABLET BY MOUTH EVERY OTHER DAY 30 tablet 0 ??? umeclidinium-vilanteroL (ANORO ELLIPTA) 62.5-25 mcg/actuation blister with device Inhale 1 puffdaily 1 each 5 No current facility-administered medications for this visit. Patient Active Problem List Diagnosis ??? Essential hypertension ??? Polyarthritis ??? Thyroid nodule ??? Stage 3a chronic kidney disease (HCC) ??? Shortness of breath ??? Airway obstruction Past Medical History: Diagnosis Date ??? Arthritis ??? Hypertension Past Surgical History: Procedure Laterality Date ??? REPAIR KNEE LIGAMENT Family History Problem Relation Age of Onset ??? Diabetes Mother ??? Asthma Mother ??? COPD Mother ??? Atrial fibrillation Mother ??? Hyperlipidemia Mother ??? 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 Vital Signs There were no vitals filed [...] due to video visit (no telepresenter present) Assessment Assessment Diagnosis Plan 1. Hypersomnolence Ambulatory referral to Sleep Medicine PSG-Sleep Provider Use Only 2. Nocturia PSG-Sleep Provider Use Only 3. Chronic obstructive pulmonary disease, unspecified COPD type (HCC) 66 y.o. female with severe COPD and dyspnea, hypertension, and CKD III who has symptoms suggestive of obstructive sleep apnea including morning headaches, daytime sleepiness with elevated (>10) [place] Sleepiness Scale, nocturia and poor sleep quality. Exam is notable for obesity with BMI>[address] her at higher risk for DEANNE along with her post-menopausal status. I discussed the possible diagnosis of obstructive sleep apnea with the patient. We discussed how untreated DEANNE can cause unrefreshing sleep and excessive daytime sleepiness. We discussed risks of untreated sleep apnea including its association with hypertension, glucose control, stroke, cardiovascular events, cardiac arrhythmias, and motor vehicle accidents. We discussed diagnostic strategies as well as possible treatment options including CPAP, oral appliances, and surgery. She is amenable to evaluation and treatment for DEANNE. Plan 1. In lab polysomnogram, split night to evaluate for sleep apnea. Although patient has severe COPD,recent BMP had a normal bicarb level (23). Due to this low value, no significant concern for nocturnal hypoventilation, so will not add tcCO2 monitoring. 2. Discussed avoidance of driving while sleepy 3. Follow up pending polysomnogram No follow-ups on file. Orders Placed This Encounter Procedures ??? PSG-Sleep Provider Use Only Standing Status: Future Standing Expiration Date: 03/08/2022 Order Specific Question: Where should this exam be performed? Answer: [facility] (All Locations) [167] Order Specific Question: Study Type: Answer: Split Night Order Specific Question: Criteria: Answer: AHI > 15 Order Specific Question: Additional Sleep Study Protocol required Answer: No Order Specific Question: Research Laboratory Specialist Sleep Provider: Answer: Steffen/Zoraida Thank you for allowing me to participate in the care of your patient. If you have any questions, feel free to contact me. Sincerely, Jia Bourne MD Sleep Medicine Fellow Sonia Conway M.D., Ph.D., FAAN, FAASM Professor of Neurology Diplomate, [place] Board of Psychiatry and Neurology with added Qualifications in Sleep Medicine Portions of this note were generated using voice recognition technology and may be subject to dobby loom fixer error. documented in this encounter Plan of Treatment Scheduled Procedures Name Priority Associated Diagnoses Date/Ti me COLONOSCOPY Encounter for screening colonoscopy COLONOSCOPY Encounter for screening colonoscopy documented as of this encounter Results * PSG (COMPLEX) (06/21/2021 10:00 PM PROFESSIONAL NURSING ASSISTANT) Narrative Jia Bourne MD - 06/21/2021 10:00 PM PROFESSIONAL NURSING ASSISTANT Jia Bourne MD ? 06/25/2021 ??1:00 PM PSG-Sleep Provider Use Only Date/Time: 06/21/2021 10:00 PM Performed by: Sonia Conway MD PhD Authorized by: Jia Bourne MD Jia Bourne MD [facility] Final Result documented in this encounter Visit Diagnoses Diagnosis Hypersomnolence- Primary Hypersomnia, unspecified Nocturia Chronic obstructive pulmonary disease, unspecified COPD type (HCC) Obstructive sleep apnea- Primary Obstructive sleep apnea (adult) (pediatric) documented in this encounter Discontinued Medications Medication Sig Discontinue Reason Start Date End Da te azithromycin (ZITHROMAX) 250 mg tabletIndications:Upper Respiratory/HEENT Infection Take 2 tabs (500 mg) by mouth today, than 1 tab (250 mg) daily for 4 days. 01/08/2021 03/09/2021 cholecalciferol (VITAMIN D-3) 2000 unit capsule 2,000 Units documented as of this encounter Orders Outpatient Referral Count Last Ordered Date Fir st Ordered Date AMB REFERRAL TO SLEEP MEDICINE 1 03/08/2021 documented in this encounter Care Teams Sleeper Cutter Relationship Specialty Start Date End Date Bull Taveras MD [address] [place] [address] PCP - General Internal Medicine 08/24/20 documented as of this encounter
--- OUTSIDE RECORDS SUMMARY | 2024-07-14 22:35 | XMS_ITS | Encounter Summary ---
Author Organization [facility] Healthcare Address [address] [place] [address] Care Team Providers Care Appliance Service Supervisor Name Role Phone Bull Taveras MD Primary Care Provider [phone] Reason for Visit * Reason Comments Abdominal Pain Encounter Details Date Type Department Care Team (Late st Contact Info) Description 05/05/2021 6:33 PM CDT - 05/05/2021 9:12 PM CDT Emergency [facility] Emergency Department [address] [place] [address] Jose Francisco Ortega MD [address] [place], [place] [id number] Abdominal pain (Primary Dx) Discharge Disposition: Discharge to home or self care Social History Tobacco Use Types Packs/Day Years Used Date Smoking Tobacco: Former Cigarettes Q uit: 12/13/2019 Smokeless Tobacco: Never Comments Unknown Sex and Gender Information Value Date Recorded Sex Assigned at Not on file Legal Sex Female 6:46 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 Gender Identity Not on file Sexual Orientation Straight 03/05/2021 1: 44 PM CDT documented as of this encounter Last Filed Vital Signs Vital Sign Reading Time Taken Comments Blood Pressure 140/82 05/05/2021 8:00 PM CDT Pulse 80 05/05/2021 8:47 PM CDT Temperature 36.7 ??C (98.1 ??F) 05/05/2021 6:42 PM CD T Respiratory Rate 17 05/05/2021 8:47 PM CDT Oxygen Saturation 99% 05/05/2021 8:47 PM CDT Inhaled Oxygen Concentration - - Weight - - Height - - Body Mass Index - - documented in this encounter Discharge Diagnoses Diagnosis Unspecified abdominal pain - UNSPECIFIED ABDOMINAL PAIN Essential (primary) hypertension - ESSENTIAL (PRIMARY) HYPERTENSION Unspecified essential hypertension Unspecified osteoarthritis, unspecified site - UNSPECIFIED OSTEOARTHRITIS, UNSPECIFIED SITE Personal history of nicotine dependence - PERSONAL HISTORY OF NICOTINE DEPENDENCE documented in this encounter Discharge Instructions * Discharge Instructions* Jose Francisco Ortega MD - 05/05/2021 8:44 PM CDT Follow-up with your regular doctor in next couple of days. Return for increasing pain, fever, vomiting, blood in the stool or vomit, or other concerns. documented in this encounter Medications at Time of Discharge cetirizine (ZyrTEC) 10 mg tablet Take 1 tablet (10 mg total) by mouth daily [employer] Allergy cholecalciferol (VITAMIN D-3) 25 mcg (1,000 unit) tabletIndication s:CKD Take 1 tablet (1,000 Units total) by mouth daily 30 tablet 11 03/27/2021 predniSONE (DELTASONE) 1 mg tablet Take 1 tablet (1 mg) by mouth daily 90 tablet 04/03/2021 07/02/2021 acetaminophen (TYLENOL) 500 mg tablet Take 500 mg by mouth every 6 (six) hours as needed for pain 01/10/2022 albuterol (PROAIR RESPICLICK) 90 mcg/actuation inhaler Inhale 2 puffs every 6 (six) hours as needed for wheezing 1 Inhaler 11 07/18/2020 11/20/2021 calcium carb-D3-mag ox-zinc ox 333 mg-133 unit -133 mg-5 mg tablet Take by mouth daily 08/07/2021 lisinopriL (PRINIVIL,ZESTRI L) 10 mg tablet Take 1 tablet (10 mg total) by mouth daily 90 tablet 1 03/20/2021 06/26/2022 magnesium oxide 400 mg magnesium capsule Take 400 mg by mouth daily 08/07/2021 predniSONE (DELTASONE) 5 mg tablet TAKE 1 TABLET BY MOUTH EVERY OTHER DAY 30 tablet 02/07/2021 08/07/2021 umeclidinium-su anteroL (ANORO ELLIPTA) 62.5-25 mcg/actuation blister with device Inhale 1 puff daily 1 each 5 12/26/2020 06/20/2021 documented as of this encounter Discharge Disposition Disposition Code Departure Means Destination Discharge to home or self care documented in this encounter ED Notes * Jose Francisco Ortega MD - 05/05/2021 6:52 PM CDT HPI:Pt woke up and had some abdominal pain, feeling like indigestion and increased pain and then started vomiting. Before vomiting was hiccuping and belching.Vomiting started around 1pm. There was pain there as well and worsened all day. No blood in vomit, but just everything came back out and no feculent material. Last vomiting episode was before came over here, around an hour ago. No pain since she left for here either. Not been around anyone that has been sick. Took some Mg last night for leg cramps so normal stool for that, no diarrhea since then. Is covid vaccinated and flu shot. Has baseline COPD breathing issues, and temp right before left was 99.7. Last night just vegetables to eat. No recent travel. No hx of surgeries on abd. Pain was epigastric and moved down and around to lower and back ROS: There are no constitutional, eyes, ears/nose/mouth/throat, cardiovascular, respiratory, GI, , musculoskeletal, integumentory, neurological , complaints unless noted above. PMH: See nurses notes Meds: See nurses notes, COPD, stage 3 ckd, msucle cramps/PMR All: See nurses notes Family history:mutliple issues including afib, copd Social history:tobacco use, social alcohol use, no drugs Vital signs: reviewed GENERAL: nad HEENT: PERRL, oropharynx moist NECK: no nuchal rigidity LUNGS: good air entry, no w/r/r CARDIAC: nl s1, s2 , no murmurs, gallops or rubs BACK: no masses or tenderness ABD: non tender, non distended, +bs EXT: no clubbing, cyanosis or edema NEURO: alert, oriented, grossly non focal SKIN: no rashes or masses MDM: The patient is no longer having any pain or vomiting so this may have been a gastric bug of some sort. She does not have a history of surgery so less likely be a small-bowel obstruction and she has not had anything now. That being said she has not had anything in her stomach. Unlikely to be infection or abscess. ASSESSMENT/PLAN: Will give hydration and check labs and then decide if she needs a CT scan based on those results and how she is feeling fair HPI Chief Complaint Patient presents with ??? Abdominal Pain HPI Patient History: Patient Active Problem List Diagnosis Date Noted ??? DERICK (renal osteodystrophy) 03/27/2021 ??? Other emphysema (CMS/HCC) (HCC) 03/27/2021 ??? Airway obstruction ??? Shortness of breath ??? Stage 3a chronic kidney disease (HCC) 11/22/2020 ??? Essential hypertension 10/17/2020 ??? Polyarthritis 10/17/2020 ??? Thyroid nodule 10/17/2020 Past Medical History: Diagnosis Date ??? Arthritis ??? Hypertension Past Surgical History: Procedure Laterality Date ??? REPAIR KNEE LIGAMENT Family History Problem Relation Age of Onset ??? Diabetes Mother ??? Asthma Mother ??? COPD Mother ??? Atrial fibrillation Mother ??? Hyperlipidemia Mother ??? COPD Father ??? Kidney disease Neg Hx Social History Tobacco Use ??? Smoking status: Former Smoker Quit date: 12/13/2019 Years since quittin.4 ??? Smokeless tobacco: Never Used Substance Use Topics ??? Alcohol use: Not on file ??? Drug use: Yes Types: Alcohol Social History Social History Narrative ??? Not on file Review of Systems Review of Systems Physical Exam ED Triage Vitals Temp Pulse Resp BP SpO2 05/05/21184105/05/21184105/05/21184105/05/21184105/05/211841 36.7 ??C (98.1 ??F) 94 16 142/82 94 % Temp src Heart Rate Source Patient Position BP Location FiO2 (%) 05/05/211841 -- 05/05/212109 -- -- Oral Sitting Physical Exam [facility] ED Course as of May 08 1046 Time: 05/05 1953 Comment: Patient would like to get the CT scan although we spoke about kidney issues as well as thewhite count and the fact she has not had any pain for last number hours. By: Jose Francisco Ortega MD Final diagnoses: Abdominal pain Jose Francisco Ortega MD 05/08/211045 * Darya Vergara, RN - 05/05/2021 6:39 PM CDT Pt c/o n/v abd pain since this am. Denies urinary sx, last bm last night normal. Pt states 6 episodes of emesis today states unable to hold anything down denies any URI sx. documented in this encounter Plan of Treatment Scheduled Procedures Name Priority Associated Diagnoses Date/Ti in COLONOSCOPY Encounter for screening colonoscopy COLONOSCOPY Encounter for screening colonoscopy documented as of this encounter Procedures Procedure Name Priority Date/Time Associated Diagnosis Comments URINALYSIS AND REFLEX TO MICROSCOPIC AND CULTURE STAT 05/05/2021 8:[address] ABDOMEN PELVIS W CONTRAST ED 05/05/2021 8:21 PM CDT LACTATE STAT 05/05/2021 7:09 PM CDT EGFR STAT 05/05/2021 7:09 PM CDT DIFFERENTIAL AUTO STAT 05/05/2021 7:0 9 PM CDT CBC WITH AUTO DIFFERENTIAL STAT 05/05/2021 7:09 PM CDT LIPASE STAT 05/05/2021 7:09 PM CDT COMPREHENSIVE METABOLIC PANEL STAT 05/05/2021 7:09 PM CDT documented in this encounter Results * Urinalysis reflex to microscopic and culture Urine, clean voided (05/05/2021 8:53 PM CDT) Color, ur Straw Yellow [facility] Clarity, ur Clear Clear [facility] Specific gravity, ur 1.010 1.003 - 1.030 [facility] pH, urine 6.5 [facility] Protein, ur ql Negative Negative [facility] Glucose, ur ql Negative Negative [facility] Ketones, ur Negative Negative [facility] Bilirubin, ur Negative Negative [facility] Blood, ur Negative Negative [facility] Urobilinogen, ur <2.0 <2.0 mg/dL [facility] Nitrite, ur Negative Negative [facility] Leukocyte esterase, ur Negative Negative [facility] UA reflex comment Reflex conditions for microscopic UA and culture not met. [facility] Urine, clean voided 05/05/2021 8:53 PM CDT 05/05/2021 8:57 PM CDT Narrative [facility] - 05/05/2021 9:06 PM CDT ?? Urine pH is affected by diet, medications, systemic acid-base disturbances, and renal tubular function. ??pH may affect urinary stone formation. ??For example, urine pH below 6.0 may help reduce the tendency for calcium phosphate stones and pH greater than 6.0 may reduce the tendency for uric acid stone formation. Source: [employer]. Last revised 07-24-2017 us Jose Francisco Ortega MD LAB MICROBIOLOGY - GENERAL ORD ERABLES Final Result [facility] [address] [facility]. [place] [address] * CT Abdomen Pelvis W Contrast (05/05/2021 8:21 PM CDT) Anatomical Region Laterality Modality Body N/A Computed Tomogra phy 05/06/2021 6:00 PM CDT Impressions 05/06/2021 6:00 PM CDT No acute abnormality in the abdomen or pelvis. Electronically signed by: Gabino Kirk M.D. Narrative 05/06/2021 6:00 PM CDT Examination: CT abdomen and pelvis with intravenous contrast TECHNIQUE: Standard CT of the abdomen and pelvis was performed after the administration of Optiray 350 intravenous contrast. ??The following amount of contrast was administered for this examination in mL: 100. HISTORY: Abdominal pain. FINDINGS: No prior examinations are available for comparison. The heart is normal in size without pericardial effusion. ??The lung bases are clear. ??There is no pleural effusion. ??The liver enhances homogeneously with small cyst and small hypoattenuating lesions, too small to characterize. ??The gallbladder is normal. ??The pancreas, spleen, adrenal glands, kidneys, and urinary bladder are unremarkable. ??Calcified granulomas are seen consistent with old granulomatous disease. ??Small hypoattenuating areas are seen in the kidneys, too small to characterize. ??The uterus and adnexa are unremarkable. Severe colonic diverticulosis is seen without diverticulitis. ??The appendix is normal. ??The colon and small bowel are otherwise grossly unremarkable. ??There is no free intra-abdominal air or fluid. ??There is no intra-abdominal lymphadenopathy. ??The bone window demonstrate mild anterolisthesis of L4 on L5 with no acute fracture or suspicious lytic or blastic osseous lesion. The preliminary results were reported by the tele-radiologist weapons system instrument mechanic. Procedure Note Gabino Kirk MD - 05/06/2021 Examination: CT abdomen and pelvis with intravenous contrast TECHNIQUE: Standard CT of the abdomen and pelvis was performed after the administration of Optiray 350 intravenous contrast. The following amount of contrast was administered for this examination in mL: 100. HISTORY: Abdominal pain. FINDINGS: No prior examinations are available for comparison. The heart is normal in size without pericardial effusion. The lung bases are clear. There is no pleural effusion. The liver enhances homogeneously with small cyst and small hypoattenuating lesions, too small to characterize. The gallbladder is normal. The pancreas, spleen, adrenal glands, kidneys, and urinary bladder are unremarkable. Calcified granulomas are seen consistent with old granulomatous disease. Small hypoattenuating areas are seen in the kidneys, too small to characterize. The uterus and adnexa are unremarkable. Severe colonic diverticulosis is seen without diverticulitis. The appendix is normal. The colon and small bowel are otherwise grossly unremarkable. There is no free intra-abdominal air or fluid. There is no intra-abdominal lymphadenopathy. The bone window demonstrate mild anterolisthesis of L4 on L5 with no acute fracture or suspicious lytic or blastic osseous lesion. The preliminary results were reported by the tele-radiologist weapons system instrument mechanic. IMPRESSION: No acute abnormality in the abdomen or pelvis. Electronically signed by: Gabino Kirk M.D. Jose Francisco Ortega MD IMG CT PROCEDURES Final Result * eGFR (05/05/2021 7:09 PM CDT) eGFR 44 mL/min/1.7 3 m2 [facility] Comment: Interpretive Data Reference Interval Normal ?>/= 90 mL/min/1.73m2 Mildly decreased* ? 60 - 89 mL/min/1.73m2 Mildly to moderately decreased ?45 - 59 mL/min/1.73m2 Moderately to severely decreased ??30 - 44 mL/min/1.73m2 Severely decreased ?15 - 29 mL/min/1.73m2 Kidney Failure ?< 15 ??mL/min/1.73m2 *Relative to young adult level Estimated glomerular filtration rate is determined by the CKD-EPI equation recommended by the National Kidney Foundation (KDIGO 2012 Clinical Practice Guideline for the Evaluation and Management of Chronic Kidney Disease. Kidney Intnl Suppl Jul 2012;3:1). The CKD-EPI equation should not be used for patients with unstable renal function and has not been validated in children and those over 70. Current interpretive data was last reviewed 2020 Blood 05/05/2021 7:09 PM CDT 05/05/2021 7:15 PM CDT us Jose Francisco Ortega MD LAB BLOOD ORDERABLES Final Res ult [facility] [address] [facility]. [place] [address] * (ABNORMAL) Differential, auto (05/05/2021 7:09 PM CDT) Neutrophil abs 11.5(H) 1.7 - 6.5 K/cumm [facility] Imm gran abs 0.0 0.0 - 0.1 K/cumm [facility] Lymphocyte abs 0.9 0.8 - 3.3 K/cumm [facility] Monocyte abs 0.9(H) 0.2 - 0.8 K/cumm [facility] Eosinophil abs 0.1 0.0 - 0.5 K/cumm [facility] Basophil abs 0.1 0.0 - 0.1 K/cumm [facility] Neutrophil pct 84.6 % [facility] Comment: Interpretive Data Percent cell count reference ranges are not reported, since discordance with absolute values may lead to misinterpretation of CBC data. Current Interpretive Data was last revised on 2017. Imm gran pct 0.2 % [facility] Comment: Interpretive Data Percent cell count reference ranges are not reported, since discordance with absolute values may lead to misinterpretation of CBC data. Current Interpretive Data was last revised on 2017. Lymphocyte pct 6.8 % [facility] Comment: Interpretive Data Percent cell count reference ranges are not reported, since discordance with absolute values may lead to misinterpretation of CBC data. Current Interpretive Data was last revised on 2017. Monocyte pct 6.8 % [facility] Comment: Interpretive Data Percent cell count reference ranges are not reported, since discordance with absolute values may lead to misinterpretation of CBC data. Current Interpretive Data was last revised on 2017. Eosinophil pct 0.9 % [facility] Comment: Interpretive Data Percent cell count reference ranges are not reported, since discordance with absolute values may lead to misinterpretation of CBC data. Current Interpretive Data was last revised on 2017. Basophil pct 0.7 % [facility] Comment: Interpretive Data Percent cell count reference ranges are not reported, since discordance with absolute values may lead to misinterpretation of CBC data. Current Interpretive Data was last revised on 2017. Blood 05/05/2021 7:09 PM CDT 05/05/2021 7:15 PM CDT Jose Francisco Ortega MD LAB BLOOD ORDERABLES Final Res ult Performing Organization Address [facility]/ZIP Co de Phone Number [facility] [address] [facility]. [facility] [address] [place], [place] [id number] * Lipase (05/05/2021 7:09 PM CDT) Lipase 34 10 - 99 Units/L [facility] Blood 05/05/2021 7:09 PM CDT 05/05/2021 7:15 PM CDT Jose Francisco Ortega MD LAB BLOOD ORDERABLES Final Res ult Performing Organization Address [facility] Co de Phone Number [facility] [address] [facility]. [facility] [address] [place], [place] [id number] * Lactate (05/05/2021 7:09 PM CDT) Lactate 0.9 0.7 - 2.0 mmol/L [facility] Blood 05/05/2021 7:09 PM CDT 05/05/2021 7:15 PM CDT Jose Francisco Ortega MD LAB BLOOD ORDERABLES Final Res ult Performing Organization Address [facility] Co de Phone Number [facility] [address] [facility]. [facility] [place] [address] * (ABNORMAL) Comprehensive metabolic panel (05/05/2021 7:09 PM CDT) Sodium 138 135 - 145 mmol/L [facility] Potassium, pl 4.6 3.3 - 4.9 mmol/L [facility] Chloride 103 97 - 110 mmol/L [facility] CO2 24 22 - 32 mmol/L [facility] Anion gap 11 2 - 15 mmol/L [facility] BUN 18 8 - 25 mg/dL [facility] Creatinine 1.26(H) 0.60 - 1.10 mg/dL [facility] Glucose 113 70 - 199 mg/dL [facility] Comment: Interpretive Data Fasting glucose >/= 126 mg/dl is diagnostic for diabetes. ?? Fasting is defined as no caloric intake for at least 8 hours. Fasting glucose between 100 mg/dl to 125 mg/dl is diagnostic of prediabetes. In a patient with classic symptoms of hyperglycemia or hyperglycemic crisis, a random glucose >/= 200 mg/dl is diagnostic for diabetes. In the absence of unequivocal hyperglycemia, results should be confirmed by repeat testing. The classification and Diagnosis of Diabetes Diabetes Care 2017;40 (Suppl. 1):S11. Current interpretive data was last revised 2017. Calcium 9.8 8.5 - 10.3 mg/dL [facility] Bilirubin, total 0.4 0.1 - 1.2 mg/dL [facility] Protein, pl 7.2 6.5 - 8.5 g/dL [facility] Albumin 4.5 3.5 - 5.0 g/dL [facility] Alk phos 117 40 - 130 Units/L [facility] ALT 18 7 - 45 Units/L [facility] AST 28 10 - 45 Units/L [facility] Blood 05/05/2021 7:09 PM CDT 05/05/2021 7:15 PM CDT us Jose Francisco Ortega MD LAB BLOOD ORDERABLES Final Res ult [facility] [address] [facility]. [place] [address] * (ABNORMAL) CBC with auto differential (05/05/2021 7:09 PM CDT) WBC 13.6(H) 3.8 - 9.9 K/cumm [facility] Hgb 13.3 11.9 - 15.5 g/dL [facility] Hct 40.9 35.6 - 45.5 % [facility] Plt 335 150 - 400 K/cumm [facility] MPV 9.5 9.1 - 12.3 fL [facility] RBC 4.65 3.90 - 5.20 M/cumm [facility] MCV 88.0 81.3 - 96.4 fL [facility] MCH 28.6 27.1 - 33.3 pg [facility] MCHC 32.5 32.3 - 35.7 g/dL [facility] RDW CV 13.0 11.1 - 14.9 % [facility] RDW SD 42.0 35.7 - 48.1 fL [facility] NRBC abs 0.00 0.00 - 0.01 K/cumm [facility] Blood 05/05/2021 7:09 PM CDT 05/05/2021 7:15 PM CDT Jose Francisco Ortega MD LAB BLOOD ORDERABLES Final Res ult [facility] [address] [facility] [place] [address] documented in this encounter Visit Diagnoses Diagnosis Abdominal pain- Primary Abdominal pain, unspecified site documented in this encounter Administered Medications Inactive Administered Medications - up to 3 most recent administrations Medication Order MAR Action Action Date Dose Rate Site Lactated Ringer's (LR) infusion 1,000 mL/hr, intravenous, Once, On 05/05/21 at 1902, For 1 dose New Bag 05/05/2021 7:22 PM CDT 1,000 mL/hr 1000 mL/hr documented in this encounter Active and Recently Administered Medications Times are shown in CDT. Scheduled Medication Order 05/03/2021 05/04/2021 05/05/2021 Lactated Ringer's (LR) infusion (COMPLETED) 1,000 mL/hr, intravenous, Once, On 05/05/21 at 1902, For 1 dose 1921 (New Bag - Prov ider: Tisha Cavazos RN)2044 (Stopped - Provider: Tisha Cavazos RN) documented in this encounter Orders Medications Ordered That Marcos ht Not Have Been Administered Count Last Ordered Date First Ordered Date Lactated Ringer's (LR) infusion 1 IV Count Last Ordered Date First Orde red Date INSERT PERIPHERAL IV 1 05/05/2021 documented in this encounter Care Teams Appliance Service Supervisor Relationship Specialty Start Date End Date Bull Taveras MD [address] [address] PCP - General Internal Medicine 08/24/20 documented as of this encounter
--- OUTSIDE RECORDS SUMMARY | 2024-07-14 22:35 | XMS_ITS | Encounter Summary ---
Author Organization [facility] Address [address] [place] [address] Care Team Providers Care Senior Physician Name Role Phone Bull Taveras MD Primary Care Provider [phone] Reason for Visit * Reason Onset Date Comments fna 05/11/2021 Encounter Details Date Type Department Care Team (Late st Contact Info) Description 05/11/2021 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 documented in this encounter Plan of Treatment Scheduled Procedures Name Priority Associated Diagnoses Date/Ti me COLONOSCOPY Encounter for screening colonoscopy COLONOSCOPY Encounter for screening colonoscopy documented as of this encounter Visit Diagnoses Not on filedocumented in this encounter Care Teams Senior Physician Relationship Specialty Start Date End Date Bull Taveras MD [id number] [place] [address] PCP - General Internal Medicine 08/24/20 documented as of this encounter
--- OUTSIDE RECORDS SUMMARY | 2024-07-14 22:35 | XMS_ITS | Encounter Summary ---
Author Organization [facility] Address [address] [place] [address] Phone Care Team Providers Care Executive Talent Acquisition Consultant Name Role Phone Bull Taveras MD Primary Care Provider Nahomi Boyce RN Unavailable Unavailabl e Encounter Details Date Type Department Care Team (Late st Contact Info) Description 06/19/2021 Documentation [facility] Neuro Sleep [address] 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
--- OUTSIDE RECORDS SUMMARY | 2024-07-14 22:35 | XMS_ITS | Encounter Summary ---
Author Organization [facility] Address [address] [place] [address] Care Team Providers Care Squirrel Man Name Role Phone Bull Taveras MD Primary Care Provider [phone] Encounter Details Date Type Department Care Team (Latest Contact Info) Description 05/05/2021 7:59 PM CDT - 05/05/2021 11:59 PM CDT Hospital Encounter [facility] Imaging [address] [place] [address] Discharge Disposition: Discharge to home or self care Social History Tobacco Use Types Packs/Day Years Used Date Smoking Tobacco: Former Cigarettes Q uit: 12/13/2019 Smokeless Tobacco: Never Comments Unknown Sex and Gender Information Value Date Recorded Sex Assigned at Not on file Legal Sex 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 Gender Identity Not on file [...] Name Priority Date/Time Associated Diagnosis Comments CT ABDOMEN PELVIS W CONTRAST ED 05/05/2021 8:21 PM CDT documented in this encounter Visit Diagnoses Not on filedocumented in this encounter Administered Medications Inactive Administered Medications - up to 3 most recent administrations Medication Order MAR Action Action Date Dose Rate Site ioversoL (OPTIRAY 350) syringe syringe 100 mL 100 mL, intravenous, Once in imaging, contrast, Starting on 05/05/21 at 2020, For 1 dose Contrast Given 05/05/2021 8:06 PM CDT 100 mL documented in this encounter Care Teams Squirrel Man Relationship Specialty Start Date End Date Bull Taveras MD [address] [facility] [address] [place] [address] PCP - General Internal Medicine 08/24/20 documented as of this encounter
--- OUTSIDE RECORDS SUMMARY | 2024-07-14 22:35 | XMS_ITS | Encounter Summary ---
Author Organization [facility] Address [address] [place] [address] Phone Care Team Providers Care Medical Reviewer Name Role Phone Bull Taveras MD Primary Care Provider [phone] Encounter Details Date Type Department Care Team (Late st Contact Info) Description 04/13/2021 Telephone [facility] Nephrology [facility] Medicine 5th [place] [address] [place] [address] Alina Lord RMA Social History Tobacco Use Types Packs/Day Years Used Date Smoking Tobacco: Former Cigarettes Q uit: 12/13/2019 Smokeless Tobacco: Never Comments Unknown Sex and Gender Information Value Date Recorded Sex Assigned at Not on file Legal 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 Faxing this request to their office @ [phone] and will keep eye out for HILL note and labs from Rheum. ----- Message from ALDO Diggs sent at 03/28/2021 9:30 AM CDT ----- Regarding: Records requested Jing daugherty LVMs, will forward info when able. Thx! ----- Message ----- From: Rafael Allred MD Sent: 03/27/2021 9:06 AM CDT To: ALDO Diggs, Marianna Ventura, RN Please get old labs on pt from Dr. Alvarez at [facility]. Dr. Alvarez is a cbx operator. documented in this encounter Plan of Treatment Scheduled Procedures Name Priority Associated Diagnoses Date/Ti me COLONOSCOPY Encounter for screening colonoscopy COLONOSCOPY Encounter for screening colonoscopy documented as of this encounter Visit Diagnoses Not on filedocumented in this encounter Care Teams Medical Reviewer Relationship Specialty Start Date End Date Bull Taveras MD [address] [facility] [address] [place] [address] PCP - General Internal Medicine 08/24/20 documented as of this encounter
--- OUTSIDE RECORDS SUMMARY | 2024-07-14 22:35 | XMS_ITS | Encounter Summary ---
Author Organization [facility] Address [address] [place] [address] Phone Care Team Providers Care Pleat Patternmaker Name Role Phone Bull Taveras MD Primary Care Provider [phone] Reason for Visit * Sleep Medicine (Routine) - Closed Specialty Diagnoses / Procedures Referred By Contac t Referred To Contact Diagnoses Hypersomnolence Nocturia Procedures PSG-Sleep Provider Use Only Jia Bourne MD Phone: tel: fax: [facility] (All Locations) Referral ID Status Reason Start Date Expiration Date Visits Re quested Visits Authorized [id number] Closed 04/18/2021 04/07/2022 1 1 Encounter Details Date Type Department Care Team (Latest Contact Info) Description 06/21/2021 7:30 PM FORMULA WEIGHER Procedure visit [facility] Neuro Sleep [address] [facility] 6th [address] [place] [address] Obstructive sleep apnea (Primary Dx) Social History Tobacco Use Types Packs/Day Years Used Date Smoking Tobacco: Former Cigarettes Q uit: 12/13/2019 Smokeless Tobacco: Never Comments Unknown Sex and Gender Information Value Date Recorded Sex Assigned at Not on file Legal Sex Female 6:46 AM FORMULA WEIGHER Gender Identity Not on file Sexual Orientation Straight 03/05/2021 1: 44 PM CDT documented as of this encounter Last Filed Vital Signs Vital Sign Reading Time Taken Comments Blood Pressure 169/76 06/21/2021 7:22 PM FORMULA WEIGHER Pulse 75 06/21/2021 7:22 PM FORMULA WEIGHER Temperature 36.8 ??C (98.2 ??F) 06/21/2021 7:22 PM CS T Respiratory Rate - - Oxygen Saturation 98% 06/21/2021 7:22 PM FORMULA WEIGHER Inhaled Oxygen Concentration - - Weight 91.9 kg (202 lb 8 oz) 06/21/2021 7:22 PM FORMULA WEIGHER Height 162.6 cm (5' 4 ) 06/21/2021 7:22 PM FORMULA WEIGHER Body Mass Index 34.76 06/21/2021 7:22 PM FORMULA WEIGHER documented in this encounter Progress Notes * Sonia Conway MD PhD - 06/21/2021 7:30 PM CSTAssociated Order(s): PSG-Sleep Provider Use Only PSG-Sleep Provider Use Only Date/Time: 06/21/2021 10:00 PM Performed by: Sonia Conway MD PhD Authorized by: Jia Bourne MD [facility] [address] [place] [address], [address] [place] [address] Main: RE: Lisa Scott : 1955 MARY: 06/21/2021 DIAGNOSTIC POLYSOMNOGRAM WITH CONTINUOUS POSITIVE AIRWAY PRESSURE TITRATION Clinical History: Lisa Scott is a 66 year old woman with severe COPD and dyspnea, hypertension, and chronic kidney disease stage III who has symptoms suggestive of obstructive sleep apnea including morning headaches, daytime sleepiness with elevated (>10) [place] Sleepiness Scale, nocturia and poor sleep quality Height: 64.0 inches, Weight: 202.5 lb, BMI: 34.8 kg/m??, Neck Circumference: 15.0 inches Polysomnographic Findings: Unless otherwise noted, polysomnogram was recorded and scored in accordance with recommended parameters as outlined in the AASM Manual for the Scoring of Sleep and Associated Events, Version 2.6. Hypopneas were scored 1) in accordance with recommended (3%)parameters as outlined in Chapter VIII, Part 1: Rules for Adults, Category D, Section 1A, defined by 3% oxygen desaturation or arousal in addition to reduction in flow, and 2) additionally scored by acceptable (4%) parameters as outlined in Chapter VIII, Part 1: Rules for Adults, Category D, Section 1B, defined by 4% oxygen desaturation in addition to reduction in flow. During all night polysomnography, the patient slept for 461 minutes out of 525 minutes in bed. Lights Out occurred at 21:37 and Lights On occurred at 06:22. Sleep latency was 06 minutes and REM latency was 101.5 minutes. Diagnostic Baseline Findings: During the diagnostic portion of the recording, the patient slept for 125.0 minutes, with a sleep efficiency of 82.5 %. Respiratory monitoring using nasal/oral thermistor, pressure transducer and polyvinylidene fluoride (PVDF) effort belts revealed a 3% apnea/hypopnea index (3% AHI) of 18.2 events per hour of sleep, a 4% apnea/hypopnea index (4% AHI) of 14.4 events per hour of sleep, a central apnea index (SÁNCHEZ) of 1.4 events per hour of sleep, and a 3% central apnea-hypopnea index (CAHI) of 1.4events per hour of sleep. The patient experienced 1.9 obstructive apneas, 0.0 mixed apneas, 1.4 central apneas, 14.9 obstructive 3% hypopneas, 0.0 central 3% hypopneas. There was a 3% AHI of 13.5 events per hour of NREM sleep, and a 3% AHI of 55.7 events per hour of REM sleep. The patient had a 3% AHI of 18.2 events per hour of sleep in the supine position. The patient had a baseline saturation of 96-97% while awake. During NREM sleep, the baseline SpO2 average range was 93-95%. During REM sleep, the baseline SpO2 average range was 93-95%. Desaturations associated with abnormal breathing events were in the 84-94% range during NREM sleep and 79-92% range during REM sleep. The lowest SpO2 was79%. The patient spent 16.2 minutes with SaO2 less than 89%. The snoring microphone and batch room technician observation revealed frequent snores. EMG monitoring of the tibialis anterior muscle revealed 3.8 periodic leg movements per hour of sleep and these resulted in 0.0 arousals per hour. There were 7.2 arousals per hour of sleep for no apparent reason. EKG monitoring revealed sinus rhythm. If applicable, determination of sufficient AHI to initiate treatment in accordance with split nightstart protocol was based on 4% AHI. CPAP Findings: Following the 125.0 minutes of sleep data obtained during the diagnostic portion of the study, a CPAP trial was initiated. CPAP settings from 6 cm H2O to 10 cm H2O were tested. A pressure of 10 cm H2O with an EPR of 3 was found to be optimal. Recording at this pressure continued for 182.0 minutes of sleep. The patient slept in the lateral and supine positions. Use of this CPAP setting resulted inthe appearance of consolidated sleep, with 44 minutes of REM sleep recorded (21 minutes supine REM). At this pressure, the patient experienced 8.9 arousals without apparent cause per hour of sleep. At this pressure, the patient had an 3% AHI of 2.0 events per hour of sleep, a 4% AHI of 1.6 events per hour of sleep, a baseline oxygen saturation of 94-96%, and desaturations of 85-93% during the respiratory events. The patient spent 0.3 minutes with SaO2 less than 89%. The final PAP mask used was a small Martino [employer] Sensorskel Vitera mask. Interpretation: This all night polysomnogram revealed evidence of mild to moderate obstructive sleep apnea based nicky 3% AHI of 18.2 and a 4% AHI of 14.4 events per hour of sleep. Titration of CPAP documented that this is an effective treatment for the patient's obstructive sleep apnea, with the optimal pressure being 10 cm H2O. There were a few central events noticed with positive pressure of 8 cm H2O and 10 cm H2O. Due to this will limit pressure range on CPAP. The patient was contacted and the results of the study were reviewed. Will trial Autotitrating CPAP8-12 cm H2O. Follow up in clinic. Diagnosis: Obstructive Sleep Apnea: G47.33 Accredited Scorer: Isabel Garcia I attest that I have reviewed this polysomnogram epoch by epoch, in accordance with AASM standards. Jia Bourne MD Sleep Medicine Fellow By signing this report, I certify that I have read this polysomnogram, edited the report, and agreewith the description of findings and interpretation contained in this written report. Sonia Conway M.D., Ph.D., FAAN, FAASM Professor of Neurology Diplomate, [place] Board of Psychiatry and Neurology with added Qualifications in Sleep Medicine ULA WEIGHER documented in this encounter Plan of Treatment Scheduled Procedures Name Priority Associated Diagnoses Date/Ti me COLONOSCOPY Encounter for screening colonoscopy COLONOSCOPY Encounter for screening colonoscopy documented as of this encounter Procedures Procedure Name Priority Date/Time Associated Diagnosis Comments PSG (COMPLEX) Routine 06/21/2021 10:00 PM FORMULA WEIGHER Obstructive sleep apnea documented in this encounter Results * PSG (COMPLEX) (06/21/2021 10:00 PM FORMULA WEIGHER) Narrative Jia Bourne MD - 06/21/2021 10:00 PM FORMULA WEIGHER Jia Bourne MD ? 06/25/2021 ??1:00 PM PSG-Sleep Provider Use Only Date/Time: 06/21/2021 10:00 PM Performed by: Sonia Conway MD PhD Authorized by: Jia Bourne MD Jia Bourne MD [facility] Final Result documented in this encounter Visit Diagnoses Diagnosis Obstructive sleep apnea- Primary Obstructive sleep apnea (adult) (pediatric) documented in this encounter Orders General Supply Count Last Ordered Date First Or dered Date CPAP THERAPY 1 06/22/2021 documented in this encounter Care Teams Pleat Patternmaker Relationship Specialty Start Date End Date Bull Taveras MD [address] [address] PCP - General Internal Medicine 08/24/20 documented as of this encounter
--- OUTSIDE RECORDS SUMMARY | 2024-07-14 22:35 | XMS_ITS | Encounter Summary ---
Author Organization [facility] Address [address] [facility] [address] [place] [address] Care Team Providers Care Process Analyst Name Role Phone Bull Taveras MD Primary Care Provider [phone] Encounter Details Date Type Department Care Team (Late st Contact Info) Description 07/26/2021 2:45 PM WEATHER REPORTER Lab [facility] Medical [facility] Outpatient Lab at [address] [address] Airway obstruction; Essential hypertension; Other emphysema (CMS/HCC) (HCC); Polyarthritis; DERICK (renal osteodystrophy); Shortness of breath; Stage 3a chronic kidney disease (HCC); Thyroid nodule Social History Tobacco Use Types Packs/Day Years Used Date Smoking Tobacco: Former Cigarettes Q uit: 12/13/2019 Smokeless Tobacco: Never Comments Unknown Sex and Gender Information Value Date Recorded Sex Assigned at Not on file Legal Sex Female 6:46 AM WEATHER REPORTER Gender Identity Not on file Sexual Orientation Straight 03/05/2021 1: 44 PM CDT documented as of this encounter Plan of Treatment Scheduled Procedures Name Priority Associated Diagnoses Date/Ti me COLONOSCOPY Encounter for screening colonoscopy COLONOSCOPY Encounter for screening colonoscopy documented as of this encounter Visit Diagnoses Diagnosis Airway obstruction Other diseases of respiratory system, not elsewhere classified Essential hypertension Unspecified essential hypertension Other emphysema (HCC) Other emphysema Polyarthritis Unspecified polyarthropathy or polyarthritis, site unspecified DERICK (renal osteodystrophy) Renal osteodystrophy Shortness of breath Stage 3a chronic kidney disease (HCC) Thyroid nodule Nontoxic uninodular goiter documented in this encounter Care Teams Process Analyst Relationship Specialty Start Date End Date Bull Taveras MD [address] [facility] [address] [place] [address] PCP - General Internal Medicine 08/24/20 documented as of this encounter
--- OUTSIDE RECORDS SUMMARY | 2024-07-14 22:35 | XMS_ITS | Encounter Summary ---
Author Organization [facility] Address [address] [place] [address] Care Team Providers Care Operator Ground Based Air Defence Name Role Phone Bull Taveras MD Primary Care Provider Encounter Details Date Type Department Care Team (Late st Contact Info) Description 05/30/2021 [facility] [address] [facility] [address] [place] [address] Bull Taveras MD [address] [facility] [address] [place] [address] Social History Tobacco Use Types Packs/Day Years Used Date Smoking Tobacco: Former Cigarettes Q uit: 12/13/2019 Smokeless Tobacco: Never Comments Unknown Sex and Gender Information Value Date Recorded Sex Assigned at Not on file Legal Sex Female 6:46 AM GREY STOCK RECORDER Gender Identity Not on file Sexual Orientation Straight 03/05/2021 1: 44 PM CDT documented as of this encounter Miscellaneous Notes * Telephone Encounter - Tangela Freeman MA - 05/30/2021 3:39 PM CST Patient aware STOCK RECORDER * Telephone Encounter - Tangela Freeman MA - 05/30/2021 3:38 PM CST ----- Message from Bull Taveras MD sent at 05/24/2021 5:23 PM GREY STOCK RECORDER ----- Biopsy is benign, no tumor STOCK RECORDER documented in this encounter Plan of Treatment Scheduled Procedures Name Priority Associated Diagnoses Date/Ti me COLONOSCOPY Encounter for screening colonoscopy COLONOSCOPY Encounter for screening colonoscopy documented as of this encounter Visit Diagnoses Not on filedocumented in this encounter Care Teams Operator Ground Based Air Defence Relationship Specialty Start Date End Date Bull Taveras MD [address] [address] PCP - General Internal Medicine 08/24/20 documented as of this encounter
--- OUTSIDE RECORDS SUMMARY | 2024-07-14 22:35 | XMS_ITS | Encounter Summary ---
Author Organization [facility] Address [address] [place] [address] Phone Care Team Providers Care Key Filer Name Role Phone Bull Taveras MD Primary Care Provider [phone] Reason for Visit * Reason Comments Pain Pain * Consultation (Routine) - Closed Specialty Diagnoses / Procedures Referred By Grecia paulino Referred To Contact Orthopedic Surgery Diagnoses Polyarthritis Pooja Chapman, ZIA [address] [facility] [address] [place] [address] Phone: tel: fax: Odell Lopez MD [address] [place] [address] Phone: tel: fax: Referral ID Status Reason Start Date Expiration Date V isits Requested Visits Authorized [id number] Closed Specialty Services Required 07/29/2021 08/28/2022 1 1 Encounter Details Date Type Department Care Team (Late st Contact Info) Description 09/04/2021 11:00 AM WORKERS COMPENSATION PARALEGAL Office Visit [facility] Orthopaedic Surgery [address] [facility] 6th [place] [address] [place] [address] Odell oLpez MD [address] [place] [address] Polyarthritis Social History Tobacco Use Types Packs/Day Years Used Date Smoking Tobacco: Former Cigarettes Q uit: 12/13/2019 Smokeless Tobacco: Never Comments Unknown Sex and Gender Information Value Date Recorded Sex Assigned at Not on file Legal Sex Female 6:46 AM WORKERS COMPENSATION PARALEGAL Gender Identity Not on file Sexual Orientation Straight 03/05/2021 1: 44 PM CDT documented as of this encounter Last Filed Vital Signs Vital Sign Reading Time Taken Comments Blood Pressure - - Pulse - - Temperature - - Respiratory Rate - - Oxygen Saturation - - Inhaled Oxygen Concentration - - Weight 91.6 kg (202 lb) 09/04/2021 11:56 AM WORKERS COMPENSATION PARALEGAL Height 163.8 cm (5' 4.5 ) 09/04/2021 11:56 AM CS T Body Mass Index 34.14 09/04/2021 11:56 AM WORKERS COMPENSATION PARALEGAL documented in this encounter Progress Notes * Odell Lopez MD - 09/04/2021 11:00 AM CST Images from the original note were not included. NEW PATIENT VISIT HISTORY OF PRESENT ILLNESS It has been my pleasure meeting Ms. dannielle Scott. She has bilateral hand pain. Diffusely localizing. Also some new cords in the palm. Here for evaluation and treatment. PAST MEDICAL HISTORY She has a past medical history of Arthritis, Atrial fibrillation (CMS/HCC) (HCC), Chronic kidney disease, Hypertension, Obesity, and Thyroid disease. PAST SURGICAL HISTORY She has a past surgical history that includes Repair knee ligament. INITIAL REVIEW OF MEDICATIONS She has a current medication list which includes the following prescription(s): acetaminophen, albuterol, anoro ellipta, atorvastatin, calcium carbonate, cetirizine, chlorthalidone, cholecalciferol, diltiazem, eliquis, and lisinopril. DRUG ALLERGIES She is allergic to novocain [procaine]. SOCIAL HISTORY She reports that she quit smoking about 20 months ago. She has never used smokeless tobacco. She reports current drug use. Drug: Alcohol. FAMILY HISTORY Her family history includes Asthma [...] were recorded. PHYSICAL EXAMINATION She looks well. Healthy. Looks her stated age or younger. No distress. Alert and oriented x3. Tender in the area of the triggers mild Dupuytren's cords only. No contractures. IMPRESSION/TREATMENT PLAN We are going to treat her non operatively. She is pleased with this and feels like she is establishing a plan of future care with us. I think that is reasonable. Without any object of signs of ongoing nerve damage I think that active treatment can be delayed safely. Odell Lopez M.D., MSc, FRCS(C) Professor [facility] ERS COMPENSATION PARALEGAL documented in this encounter Plan of Treatment Scheduled Procedures Name Priority Associated Diagnoses Date/Ti me COLONOSCOPY Encounter for screening colonoscopy COLONOSCOPY Encounter for screening colonoscopy documented as of this encounter Visit Diagnoses Diagnosis Polyarthritis Unspecified polyarthropathy or polyarthritis, site unspecified documented in this encounter Historical Medications * This list may reflect changes made after this encounter. diltiazem (TIAZAC) 120 mg 24 hr capsule Take 120 mg by mouth every morning 08/25/2021 09/18/2021 Eliquis 5 mg tablet Take 5 mg by mouth every 12 (twelve) hours 08/25/2021 09/18/2021 added in this encounter Orders Outpatient Referral Count Last Ordered Date Fir st Ordered Date AMB REFERRAL TO ORTHOPEDIC SURGERY 1 2021 documented in this encounter Care Teams Key Filer Relationship Specialty Start Date End Date Bull Taveras MD [address] [address] PCP - General Internal Medicine 08/24/20 documented as of this encounter
--- OUTSIDE RECORDS SUMMARY | 2024-07-14 22:35 | XMS_ITS | Encounter Summary ---
Author Organization [facility] Healthcare Address [address] [place] [address] Care Team Providers Care Key Attendant Name Role Phone Bull Taveras MD Primary Care Provider [phone] Encounter Details Date Type Department Care Team (Late st Contact Info) Description 05/15/[address] [facility] Radiology [address] [place] [address] Alexandria Pantoja RN Social History Tobacco Use Types Packs/Day Years Used Date Smoking Tobacco: Former Cigarettes Q uit: 12/13/2019 Smokeless Tobacco: Never Comments Unknown Sex and Gender Information Value Date Recorded Sex Assigned at Not on file Legal Sex Female 6:46 AM VISUAL BASIC .NET DEVELOPER Gender Identity Not on file Sexual Orientation Straight 03/05/2021 1: 44 PM CDT documented as of this encounter Miscellaneous Notes * Telephone Encounter - Alexandria Pantoja RN - 05/15/2021 7:55 AM CDT Rescheduled US GUIDED THYROID FNA as requested to 05/21/2021 at 0845. Referring office aware. documented in this encounter Plan of Treatment Scheduled Procedures Name Priority Associated Diagnoses Date/Ti me COLONOSCOPY Encounter for screening colonoscopy COLONOSCOPY Encounter for screening colonoscopy documented as of this encounter Visit Diagnoses Not on filedocumented in this encounter Care Teams Key Attendant Relationship Specialty Start Date End Date Bull Taveras MD [address] [address] PCP - General Internal Medicine 08/24/20 documented as of this encounter
--- OUTSIDE RECORDS SUMMARY | 2024-07-14 22:35 | XMS_ITS | Encounter Summary ---
Author Organization [facility] Healthcare Address [address] [place] [address] Care Team Providers Care Chief Jailer Name Role Phone Bull Taveras MD Primary Care Provider [phone] Encounter Details Date Type Department Care Team (Late st Contact Info) Description 03/27/2021 10:10 AM CDT Lab 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 Gender Identity Not on file Sexual Orientation Straight 03/05/2021 1: 44 PM CDT documented as of this encounter Discharge Disposition Disposition Code Departure Means Destination Discharge to home or self care documented in this encounter Plan of Treatment Scheduled Procedures Name Priority Associated Diagnoses Date/Ti me COLONOSCOPY Encounter for screening colonoscopy COLONOSCOPY Encounter for screening colonoscopy documented as of this encounter Procedures Procedure Name Priority Date/Time Associated Diagnosis Comments EGFR Routine 03/27/2021 10:03 AM CDT Stage 3a chronic kidney disease (HCC) DIFFERENTIAL AUTO Routine 03/27/2021 10: 03 AM CDT Stage 3a chronic kidney disease (HCC) CBC WITH AUTO DIFFERENTIAL Routine 03/27/2021 10:03 AM CDT Stage 3a chronic kidney disease (HCC) ALBUMIN CREATININE RATIO, URINE Routine 03/27/2021 10:03 AM CDT Stage 3a chronic kidney disease (HCC) PTH Routine 03/27/2021 10:03 AM CDT Stage 3a chronic kidney disease (HCC) DERICK (renal osteodystrophy) COMPREHENSIVE METABOLIC PANEL Routine 03/27/2021 10:03 AM CDT Stage 3a chronic kidney disease (HCC) documented in this encounter Results * (ABNORMAL) eGFR (03/27/2021 10:03 AM CDT) eGFR 37(L) 90 - 130 mL/min/1.7 3 m2 [facility] Comment: Interpretive Data Reference Interval Normal ?>/= [...] interpretive data was last reviewed 2020 Blood 03/27/2021 10:0 3 AM CDT 03/27/2021 10:24 AM CDT us Rafael Allred MD LAB BLOOD ORDERABLES Final Re sult [facility] [place] [address] * Differential, auto (03/27/2021 10:03 AM CDT) Neutrophil abs 4.3 1.7 - 6.5 K/cumm [facility] Imm gran abs 0.0 0.0 - 0.1 K/cumm [facility] Lymphocyte abs 1.5 0.8 - 3.3 K/cumm [facility] Monocyte abs 0.7 0.2 - 0.8 K/cumm [facility] Eosinophil abs 0.2 0.0 - 0.5 K/cumm [facility] Basophil abs 0.1 0.0 - 0.1 K/cumm [facility] Neutrophil pct 62.3 % [facility] Comment: Interpretive Data Percent cell count reference ranges are not reported, since discordance with absolute values may lead to misinterpretation of CBC data. Current Interpretive Data was last revised on 2017. Imm gran pct 0.3 % [facility] Comment: Interpretive Data Percent cell count reference ranges are not reported, since discordance with absolute values may lead to misinterpretation of CBC data. Current Interpretive Data was last revised on 2017. Lymphocyte pct 22.5 % [facility] Comment: Interpretive Data Percent cell count reference ranges are not reported, since discordance with absolute values may lead to misinterpretation of CBC data. Current Interpretive Data was last revised on 2017. Monocyte pct 10.1 % [facility] Comment: Interpretive Data Percent cell count reference ranges are not reported, since discordance with absolute values may lead to misinterpretation of CBC data. Current Interpretive Data was last revised on 2017. Eosinophil pct 3.2 % [facility] Comment: Interpretive Data Percent cell count reference ranges are not reported, since discordance with absolute values may lead to misinterpretation of CBC data. Current Interpretive Data was last revised on 2017. Basophil pct 1.6 % [facility] Comment: Interpretive Data Percent cell count reference ranges are not reported, since discordance with absolute values may lead to misinterpretation of CBC data. Current Interpretive Data was last revised on 2017. Blood 03/27/2021 10:0 3 AM CDT 03/27/2021 10:20 AM CDT Rafael Allred MD LAB BLOOD ORDERABLES Final Re sult Performing Organization Address [facility] de Phone Number [facility] [place] [place] [address] * Albumin Creatinine Ratio, Urine (03/27/2021 10:03 AM CDT) Pathologist [facility] Albumin Ur <12.0 mg/L [facility] Comment: Interpretive Data No reference range established. Current interpretive data was last revised 2018. Creatinine Ur 35.8 mg/dL [facility] Comment: Interpretive Data No reference range established. Current interpretive data was last revised 2018. Albumin Creatinine Ratio, Ur See Comment 1 - 29 mg/g [facility] Comment:Unable to calculate Urine 03/27/2021 10:0 3 AM CDT 03/27/2021 10:20 AM CDT Rafael Allred MD LAB URINE ORDERABLES Final Re sult Performing Organization Address [facility] Co de Phone Number [facility] [place] [address] * PTH (03/27/2021 10:03 AM CDT) Pathologist [facility] PTH 63 15 - 65 pg/mL [facility] Blood 03/27/2021 10:0 3 AM CDT 03/27/2021 10:20 AM CDT Narrative [facility] - 03/27/2021 11:42 AM CDT Before next visit us Rafael Allred MD LAB BLOOD ORDERABLES Final Re sult [facility] [place] [address] * (ABNORMAL) Comprehensive metabolic panel (03/27/2021 10:03 AM CDT) Pathologist [facility] Sodium 141 135 - 145 mmol/L [facility] Potassium, pl 4.5 3.3 - 4.9 mmol/L [facility] Chloride 103 97 - 110 mmol/L [facility] CO2 28 22 - 32 mmol/L [facility] Anion gap 10 2 - 15 mmol/L [facility] BUN 23 8 - 25 mg/dL [facility] Creatinine 1.45(H) 0.60 - 1.10 mg/dL [facility] Glucose 96 70 - 199 mg/dL [facility] Comment: Interpretive Data Fasting glucose >/= 126 [...] interpretive data was last revised 2017. Calcium 9.6 8.5 - 10.3 mg/dL [facility] Bilirubin, total 0.3 0.1 - 1.2 mg/dL [facility] Protein, pl 7.3 6.5 - 8.5 g/dL [facility] Albumin 4.3 3.5 - 5.0 g/dL [facility] Alk phos 103 40 - 130 Units/L [facility] ALT 22 7 - 45 Units/L [facility] AST 27 10 - 45 Units/L [facility] Blood 03/27/2021 10:0 3 AM CDT 03/27/2021 10:20 AM CDT Narrative [facility] - 03/27/2021 10:52 AM CDT Before next visit Rafael Allred MD LAB BLOOD ORDERABLES Final Re sult Performing Organization Address [facility] Co de Phone Number [facility] [place] [address] * (ABNORMAL) CBC with auto differential (03/27/2021 10:03 AM CDT) WBC 6.9 3.8 - 9.9 K/cumm [facility] Hgb 12.5 11.9 - 15.5 g/dL [facility] Hct 40.2 35.6 - 45.5 % [facility] Plt 293 150 - 400 K/cumm [facility] MPV 10.0 9.1 - 12.3 fL [facility] RBC 4.54 3.90 - 5.20 M/cumm [facility] MCV 88.5 81.3 - 96.4 fL [facility] MCH 27.5 27.1 - 33.3 pg [facility] MCHC 31.1(L) 32.3 - 35.7 g/dL [facility] RDW CV 14.1 11.1 - 14.9 % [facility] RDW SD 45.5 35.7 - 48.1 fL [facility] NRBC abs 0.00 0.00 - 0.01 K/cumm [facility] Blood 03/27/2021 10:0 3 AM CDT 03/27/2021 10:20 AM CDT Narrative [facility] - 03/27/2021 10:31 AM CDT Before next visit Rafael Allred MD LAB BLOOD ORDERABLES Final Re sult Performing Organization Address City/[facility]/ZIP Co de Phone Number [facility] [place] [address] documented in this encounter Visit Diagnoses Diagnosis Stage 3a chronic kidney disease (HCC) DERICK (renal osteodystrophy) Renal osteodystrophy documented in this encounter Care Teams Chief Jailer Relationship Specialty Start Date End Date Bull Taveras MD [address] [facility] [address] [place] [address] PCP - General Internal Medicine 08/24/20 documented as of this encounter
--- OUTSIDE RECORDS SUMMARY | 2024-07-14 22:35 | XMS_ITS | Encounter Summary ---
Author Organization [facility] Healthcare Address [address] [place] [address] Care Team Providers Care Burn Out Scarfing Operator Name Role Phone Bull Taveras MD Primary Care Provider [phone] Encounter Details Date Type Department Care Team (Late st Contact Info) Description 05/14/2021 Telephone [facility] Radiology [address] [place] [address] Alexandria Pantoja, RN Social History Tobacco Use Types Packs/Day Years Used Date Smoking Tobacco: Former Cigarettes Q uit: 12/13/2019 Smokeless Tobacco: Never Comments Unknown Sex and Gender Information Value Date Recorded Sex Assigned at Not on file 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 Taveras for US GUIDED THYROID FNA Scheduled as requested 05/16/2021 at 1500 with arrival 30 minutes prior to procedure to [facility], 3rd floor Radiology ([address] [place] [address]) Does NOT need to hold Medications Does NOT need to be NPO Does NOT need a Board Turner Referring office to reach out to patient with all instructions. Referring office aware. documented in this encounter Plan of Treatment Scheduled Procedures Name Priority Associated Diagnoses Date/Ti sc COLONOSCOPY Encounter for screening colonoscopy COLONOSCOPY Encounter for screening colonoscopy documented as of this encounter Visit Diagnoses Not on filedocumented in this encounter Care Teams Burn Out Scarfing Operator Relationship Specialty Start Date End Date Bull Taveras MD [address] [facility] [address], [place] [address] PCP - General Internal Medicine 08/24/20 documented as of this encounter
--- OUTSIDE RECORDS SUMMARY | 2024-07-14 22:35 | XMS_ITS | Encounter Summary ---
Author Organization [facility] Address [address] [place] [address] Care Team Providers Care Cobol Application Developer Name Role Phone Bull Taveras MD Primary Care Provider [phone] Reason for Visit * Reason Onset Date Comments Office follow-up, new patient 08/25/2021 Encounter Details Date Type Department Care Team (Late st Contact Info) Description 08/25/2021 Telephone [facility] Cardiology [address] [facility] [address] [place] [phone] Vivian Adan MD [address] [address] Office follow-up, new patient Social History Tobacco Use Types Packs/Day Years Used Date Smoking Tobacco: Former Cigarettes Q uit: 12/13/2019 Smokeless Tobacco: Never Comments Unknown Sex and Gender Information Value Date Recorded Sex Assigned at Not on file 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 ER FITTER * Telephone Encounter - Vivian Adan MD - 08/25/2021 11:32 AM WELDER FITTER Patient with COPD admitted with new onset atrial fibrillation, converted in the ER with Cardizem. We were consulted but she was discharged before she could be seen. Discharged with Eliquis and digoxin. Please call and offer her a new patient appointment for follow-up of her paroxysmal atrial fibrillation. ER FITTER documented in this encounter Plan of Treatment Scheduled Procedures Name Priority Associated Diagnoses Date/Ti ct COLONOSCOPY Encounter for screening colonoscopy COLONOSCOPY Encounter for screening colonoscopy documented as of this encounter Visit Diagnoses Not on filedocumented in this encounter Care Teams Cobol Application Developer Relationship Specialty Start Date End Date Bull Taveras MD [address] [address] PCP - General Internal Medicine 08/24/20 documented as of this encounter
--- OUTSIDE RECORDS SUMMARY | 2024-07-14 22:35 | XMS_ITS | Encounter Summary ---
Author Organization [facility] Address [address] [place] [address] Care Team Providers Care Developer Architect Name Role Phone Bull Taveras MD Primary Care Provider Encounter Details Date Type Department Care Team (Late st Contact Info) Description 05/18/2021 [facility] [address] [facility] [address] [place] [address] Bull Taveras MD [address] [facility] [address] [place] [address] Social History Tobacco Use Types Packs/Day Years Used Date Smoking Tobacco: Former Cigarettes Q uit: 12/13/2019 Smokeless Tobacco: Never Comments Unknown Sex and Gender Information Value Date Recorded Sex Assigned at Not on file 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 documented in this encounter Plan of Treatment Scheduled Procedures Name Priority Associated Diagnoses Date/Ti az COLONOSCOPY Encounter for screening colonoscopy COLONOSCOPY Encounter for screening colonoscopy documented as of this encounter Visit Diagnoses Not on filedocumented in this encounter Care Teams Developer Architect Relationship Specialty Start Date End Date Bull Taveras MD [address] [address] PCP - General Internal Medicine 08/24/20 documented as of this encounter
--- OUTSIDE RECORDS SUMMARY | 2024-07-14 22:35 | XMS_ITS | Encounter Summary ---
Author Organization [facility] Address [address] [place] [address] Care Team Providers Care Top Hat Body Maker Name Role Phone Bull Taveras MD Primary Care Provider Encounter Details Date Type Department Care Team (Late st Contact Info) Description 07/30/2021 [facility] [address] [facility] [address] [place] [facility] [place] [address] Pooja Chapman NP [address] [facility] [address] [place], [place] [id number] Social History Tobacco Use Types Packs/Day Years Used Date Smoking Tobacco: Former Cigarettes Q uit: 12/13/2019 Smokeless Tobacco: Never Comments Unknown Sex and Gender Information Value Date Recorded Sex Assigned at Not on file 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 Coker in . TH PROMOTION OFFICER documented in this encounter Plan of Treatment Scheduled Procedures Name Priority Associated Diagnoses Date/Ti me COLONOSCOPY Encounter for screening colonoscopy COLONOSCOPY Encounter for screening colonoscopy documented as of this encounter Visit Diagnoses Not on filedocumented in this encounter Care Teams Top Hat Body Maker Relationship Specialty Start Date End Date Bull Taveras MD [address] [address] PCP - General Internal Medicine 08/24/20 documented as of this encounter
--- OUTSIDE RECORDS SUMMARY | 2024-07-14 22:35 | XMS_ITS | Encounter Summary ---
Author Organization [facility] Healthcare Address [address] [place] [address] Care Team Providers Care Application Integration Architect Name Role Phone Bull Taveras MD Primary Care Provider [phone] Reason for Referral * Diagnostic Imaging (Routine) - Closed Specialty Diagnoses / Procedures Referred By Contac t Referred To Contact Diagnoses Thyroid nodule Procedures US Guided Thyroid Fine Needle Aspiration 1st Lesion Bull Taveras MD [address] [address] Phone: tel: fax: [facility] (All Locations) Referral ID Status Reason Start Date Expiration Date Visits Re quested Visits Authorized [id number] Closed 05/11/2021 06/10/2022 1 1 D LEADER Reason for Visit * Diagnostic Imaging (Routine) - Closed Specialty Diagnoses / Procedures Referred By Contac t Referred To Contact Diagnoses Thyroid nodule Procedures US Guided Thyroid Fine Needle Aspiration 1st Lesion Bull Taveras MD [address] [address] Phone: tel: fax: [facility] (All Locations) Referral ID Status Reason Start Date Expiration Date Visits Re quested Visits Authorized [id number] Closed 05/11/2021 06/10/2022 1 1 Encounter Details Date Type Department Care Team (Latest Contact Info) Description 05/21/2021 8:13 AM BRAND LEADER - 05/21/2021 11:59 PM BRAND LEADER Hospital Encounter [facility] [address] [place] [address] Bull Taveras MD [address] [facility] [address] [place] [address] Thyroid nodule Discharge Disposition: Discharge to home or self care Social History Tobacco Use Types Packs/Day Years Used Date Smoking Tobacco: Former Cigarettes Q uit: 12/13/2019 Smokeless Tobacco: Never Comments Unknown Sex and Gender Information Value Date Recorded Sex Assigned at Not on file Legal Sex Female 6:46 AM BRAND LEADER Gender Identity Not on file Sexual Orientation Straight 03/05/2021 1: 44 PM CDT documented as of this encounter Discharge Instructions * Discharge Instructions* Stephanie Hough RDMS - 05/21/2021 8:43 AM BRAND LEADER Procedure Discharge Instructions ACTIVITY: ?? Light physical activity for 48 hours (2 days). ?? Do not lift more than 10 pounds for 48 hours (2 days). DIET: ?? You may eat and drink WOUND CARE: ?? If a bandage or dressing was placed on the biopsy site, it may be removed the next day unless otherwise instructed by your physician. INSTRUCTIONS: During regular office hours, call your referring physician. If after hours, go to the closest emergency room if you have any of the following: ?? SEVERE PAIN ?? WEAKNESS OR FAINTNESS ?? REDNESS, IRRITATION, SEVERE BLEEDING OR DRAINAGE FROM THE BIOPSY SITE. FOLLOW UP: The biopsy will be read within 5-7 days. Special studies may take longer. Please allow at least a week before calling for results. OTHER: ?? If you take warfarin (Coumadin), you may resume the same day of biopsy. ?? If you take clopidogrel (Plavix), you may resume the next day. ?? If you take ticlopidine (Ticlid), you may resume the next day. ?? If you take enoxaparin (Lovenox), you may resume 12 hours after biopsy. ?? You may resume all other mediations the same day of biopsy. D LEADER documented in this encounter Medications at Time [...] or self care documented in this encounter Miscellaneous Notes * Post-Procedure Note - Philip Mcintyre MD - 05/21/2021 8:45 AM BRAND LEADER Radiology Brief Post Procedure Note Attending: Gerry Dermatology Nurse Practitioner: Francisco Javier Sedation/Anesthesia: Local Pre-Op/Pre-Procedure Diagnosis: thyroid nodules Post-Op/Post-Procedure Diagnosis: same Procedure Performed: US-guided FNA of thyroid nodules x2 Procedure Findings: success Complications: None Estimated Blood Loss: None Specimens: 6 FNA aspirates of right thyroid nodule and 7 FNA aspirates of left thyroid nodule to Cytology Condition: Stable Full report to follow. D LEADER documented in this encounter Plan of Treatment Scheduled Orders Name Type Priority Associated Diagnoses Orde r Schedule Cytology Pathology and Cytology Routine Thyroid nodule Release Upon Ordering for 1 Occurrences starting 05/21/2021 Scheduled Procedures Name Priority Associated Diagnoses Date/Ti me COLONOSCOPY Encounter for screening colonoscopy COLONOSCOPY Encounter for screening colonoscopy documented as of this encounter Procedures Procedure Name Priority Date/Time Associated Diagnosis Comments US GUIDED THYROID FINE NEEDLE ASPIRATION 1ST LESION Schedule Routine, Read Routine (OP Routine) 05/21/2021 9:37 AM BRAND LEADER Thyroid nodule CYTOLOGY Routine 05/21/2021 9:08 AM BRAND LEADER Thyroid nodule documented in this encounter Results * US Guided Thyroid Fine Needle Aspiration 1st Lesion (05/21/2021 9:37 AM BRAND LEADER) Anatomical Region Laterality Modality Thyroid N/A Ultrasound 05/21/2021 1:11 PM BRAND LEADER Impressions 05/21/2021 6:02 PM BRAND LEADER Successful ultrasound-guided fine-needle aspiration of the right mid thyroid and left upper thyroid nodules. Dictated by: Philip Mcintyre M.D. The radiology attending physician has personally reviewed this study, and had reviewed and/or edited this written report and agrees with it. Electronically signed by: Adriana Garrett MD Narrative 05/21/2021 6:02 PM BRAND LEADER EXAMINATION: ULTRASOUND-GUIDED THYROID FINE NEEDLE ASPIRATION HISTORY: ??66-year-old woman with thyroid nodules. COMPARISON: ??Thyroid ultrasound dated 04/30/2021 FINDINGS: Biopsy #: 1 Nodule reference number based on prior diagnostic ultrasound: 1 Size: 2.1 cm craniocaudal x 2.2 cm transverse x 1.4 cm AP Maximum Size: 2.2 cm Location: Right mid ACR TI-RADS risk category: TR5 (7 or more points) Reason for biopsy: meets ACR TI-RADS criteria Biopsy #: 2 Nodule reference number based on prior diagnostic ultrasound: 2 Size: 1.5 cm craniocaudal x 1.4 cm transverse x 1.3 cm AP Maximum Size: 1.5 cm Location: Left upper ACR TI-RADS risk category: TR5 (7 or more points) Reason for biopsy: meets ACR TI-RADS criteria FINE NEEDLE ASPIRATION: The procedure for ultrasound-guided FNA and its benefits and risks were explained to the patient. Risks were explained to include, but not be limited to, hemorrhage, infection, injury to adjacent organs, ??non-diagnostic specimen and adverse reaction to medications administered. The patient voiced understanding and wished to proceed and signed the consent form. A site was localized for fine needle aspiration. The site was prepped and draped in the usual manner. 10 mL of 1% Lidocaine was used for local anesthesia. 6 passes were made with 25 gauge needles into the right mid thyroid nodule .7 passes were made with 25 gauge needles into the left upper thyroid nodule. ??Appropriate needle localization was documented with continuous sonographic guidance. The fine needle aspirates were handed to the operations trainer present during the procedure. Please refer to the dictated cytology report for final interpretation. The patient's skin was cleaned and dressed. ??The patient tolerated the procedure well without immediate complication. Dr. Adriana Garrett MD, the attending radiologist, was present from the beginning to the end of the procedure. Dr. Garrett and Dr. Mcintyre performed the biopsy. Procedure Note Adriana Garrett MD - 05/21/2021 EXAMINATION: ULTRASOUND-GUIDED THYROID FINE NEEDLE ASPIRATION HISTORY: 66-year-old woman with thyroid nodules. COMPARISON: Thyroid ultrasound dated 04/30/2021 FINDINGS: Biopsy #: 1 Nodule reference number based on prior diagnostic ultrasound: 1 Size: 2.1 cm craniocaudal x 2.2 cm transverse x 1.4 cm AP Maximum Size: 2.2 cm Location: Right mid ACR TI-RADS risk category: TR5 (7 or more points) Reason for biopsy: meets ACR TI-RADS criteria Biopsy #: 2 Nodule reference number based on prior diagnostic ultrasound: 2 Size: 1.5 cm craniocaudal x 1.4 cm transverse x 1.3 cm AP Maximum Size: 1.5 cm Location: Left upper ACR TI-RADS risk category: TR5 (7 or more points) Reason for biopsy: meets ACR TI-RADS criteria FINE NEEDLE ASPIRATION: The procedure for ultrasound-guided FNA and its benefits and risks were explained to the patient. Risks were explained to include, but not be limited to, hemorrhage, infection, injury to adjacent organs, non-diagnostic specimen and adverse reaction to medications administered. The patient voiced understanding and wished to proceed and signed the consent form. A site was localized for fine needle aspiration. The site was prepped and draped in the usual manner. 10 mL of 1% Lidocaine was used for local anesthesia. 6 passes were made with 25 gauge needles into the right mid thyroid nodule .7 passes were made with 25 gauge needles into the left upper thyroid nodule. Appropriate needle localization was documented with continuous sonographic guidance. The fine needle aspirates were handed to the operations trainer present during the procedure. Please refer to the dictated cytology report for final interpretation. The patient's skin was cleaned and dressed. The patient tolerated the procedure well without immediate complication. Dr. Adriana Garrett MD, the attending radiologist, was present from the beginning to the end of the procedure. Dr. Garrett and Dr. Mcintyre performed the biopsy. IMPRESSION: Successful ultrasound-guided fine-needle aspiration of the right mid thyroid and left upper thyroid nodules. Dictated by: Philip Mcintyre M.D. The radiology attending physician has personally reviewed this study, and had reviewed and/or edited this written report and agrees with it. Electronically signed by: Adriana Garrett MD us Bull Taveras MD [facility] US PROCEDURES Final Resul t * Cytology (05/21/2021 9:08 AM BRAND LEADER) Fine needle aspirate (Thyroid Gland (Cytology)) 05/21/2021 8:46 AM BRAND LEADER Narrative PATHOLOGY [facility] - 05/23/2021 8:50 PM BRAND LEADER EPIC results best viewed via link to PDF [facility] [place] [address] Note to Patients: This report may contain a detailed description of human tissue sent by a health care provider to the laboratory for pathologic evaluation. The content of this report is essential for diagnosis and may provide important critical findings. This information may be unfamiliar to patients to review without a medical professional present. It is advised that the patient review this report in the presence of a health care provider who can answer questions and explain the details. CYTOPATHOLOGY REPORT FINAL Patient Name: ?? LISA SCOTT Gender: ??F : ??1955 (Age: 66) Address: ??[address] [place] [id number] Hospital #: ??[id number] Taken:05/21/2021 Received:05/21/2021 Reported: 05/23/2021 Patient Type: [facility] Ancillary ?? Service: Radiology Location: [facility] Physician(s): ??MD Bull Rawls M.D. FINAL DIAGNOSIS A. ??Thyroid, right-mid lobe, ultrasound guided fine needle aspiration: (Smears) (ThinPrep) ? - Benign ?? B. ??Thyroid, left-upper lobe, ultrasound guided fine needle aspiration: (Smears) (ThinPrep) ? - Benign axn/05/23/2021 14:09 By this signature, I attest that the above diagnosis is based upon my personal examination of the slides(and/or other material indicated in the diagnosis). Tadeo Cabello, DO Report Electronically Reviewed and Signed Out By ??Tadeo Cabello DO 05/23/2021 20:50:56 Dario Marie, [facility]), [facility] Gross Description A. ??Thyroid, right-mid lobe, ultrasound guided fine needle aspiration: ??3 Pap stained smear(s) and 3 Diff-Quik stained smear(s). ??1 ThinPrep prepared from needle rinse tube. ??Aspirated by Clinician. ??([facility]) B. ??Thyroid, left-upper lobe, ultrasound guided fine needle aspiration: ??4 Pap stained smear(s) and 4 Diff-Quik stained smear(s). ??1 ThinPrep prepared from needle rinse tube. ??Aspirated by Clinician. ??([facility]) Clinical Diagnosis and History The patient is a 66 year old female with bilateral thyroid nodules for FNA. REPORT IMAGES AND SCANNED DOCUMENTS, IF INCLUDED, ONLY VIEWABLE IN PDF VERSION OF REPORT The performance characteristics of some immunohistochemical stains, in-situ hybridization and fluorescence in-situ hybridization tests and immunophenotyping by flow cytometry cited in this report (if any) were determined by the Surgical Pathology and Flow Cytometry Departments at [facility] as part of an ongoing quality assurance assistant program and in compliance with federally mandated regulations drawn from the Clinical Laboratory Improvement Act of 1988 (CLIA '88). ??Some of these tests rely on the use of analyte specific reagents and are subject to specific labeling requirements by the US Food and Drug Administration. ??Such diagnostic tests may only be performed in a facility that is certified by the Department of Health and Human Services as a high complexity laboratory under CLIA '88. ??The FDA has determined that such clearance or approval is not necessary. ??This test is used for clinical purposes. ??It should not be regarded as investigational or for research. ??Nevertheless, federal rules concerning the medical use of analyte specific reagents require that the following disclaimer be attached to the report: ??This test was developed and its performance characteristics determined by the Surgical Pathology and Flow Cytometry Departments of [facility]. ??It has not been cleared or approved by the U. S. Food and Drug Administration. Bull Taveras MD LAB CYTOLOGY ORDERABLES Final Result PATHOLOGY [facility] [address]rd [address] [place], [place] [phone] documented in this encounter Visit Diagnoses Diagnosis Thyroid nodule Nontoxic uninodular goiter documented in this encounter Administered Medications Inactive Administered Medications - up to 3 most recent administrations Medication Order MAR Action Action Date Dose Rate Site lidocaine (XYLOCAINE) 10 mg/mL (1 %) injection Code/trauma/sedation medication, Starting on 05/21/21 at 0928, Intra-Procedure (IR), Indications: Administration of Local AnesthesiaIndications:Administr ation of Local Anesthesia Given 05/21/2021 9:30 AM BRAND LEADER Right Neck Given 05/21/2021 9:28 AM BRAND LEADER 10 mL Ri ght Neck documented in this encounter Care Teams Application Integration Architect Relationship Specialty Start Date End Date Bull Taveras MD [address] [place] [address] PCP - General Internal Medicine 08/24/20 documented as of this encounter
--- OUTSIDE RECORDS SUMMARY | 2024-07-14 22:35 | XMS_ITS | Encounter Summary ---
Author Organization [facility] Address [address] [place] [address] Phone Care Team Providers Care Drug Coordinator Name Role Phone Bull Taveras MD Primary Care Provider Encounter Details Date Type Department Care Team (Late st Contact Info) Description 06/27/2021 Documentation [facility] Neuro Sleep [address] [facility] 6th [address] [place] [address] Aminata Wu CMA Social History Tobacco Use Types Packs/Day Years Used Date Smoking Tobacco: Former Cigarettes Q uit: 12/13/2019 Smokeless Tobacco: Never Comments Unknown Sex and Gender Information Value Date Recorded Sex Assigned at Not on file Legal Sex Female 6:46 AM AWNING ERECTOR Gender Identity Not on file Sexual Orientation Straight 03/05/2021 1: 44 PM CDT documented as of this encounter Progress Notes * Aminata Wu CMA - 06/27/2021 9:51 AM CST Received order, order and notes faxed via [employer] to . NG ERECTOR documented in this encounter Plan of Treatment Scheduled Procedures Name Priority Associated Diagnoses Date/Ti me COLONOSCOPY Encounter for screening colonoscopy COLONOSCOPY Encounter for screening colonoscopy documented as of this encounter Visit Diagnoses Not on filedocumented in this encounter Care Teams Drug Coordinator Relationship Specialty Start Date End Date Bull Taveras MD [address] [address] PCP - General Internal Medicine 08/24/20 documented as of this encounter
--- OUTSIDE RECORDS SUMMARY | 2024-07-14 22:35 | XMS_ITS | Encounter Summary ---
Author Organization [facility] Address [address] [place] [address] Care Team Providers Care Stone Sawyer Name Role Phone Bull Taveras MD Primary Care Provider [phone] Reason for Referral * Diagnostic Imaging (Routine) - Closed Specialty Diagnoses / Procedures Referred By Contac t Referred To Contact Diagnoses Thyroid nodule Procedures US Guided Thyroid Fine Needle Aspiration 1st Lesion Bull Taveras MD [address] [facility] [address] [place] [address] Phone: tel: fax: [facility] (All Locations) Referral ID Status Reason Start Date Expiration Date Visits Re quested Visits Authorized [id number] Closed 05/11/2021 06/10/2022 1 1 Encounter Details Date Type Department Care Team (Late st Contact Info) Description 05/11/2021 Orders Only [facility] [address] [facility] [address] [facility] [place] [address] Bull Taveras MD [address] [facility] [address] [place] [address] Thyroid nodule (Primary Dx) Social History Tobacco Use Types Packs/Day Years Used Date Smoking Tobacco: Former Cigarettes Q uit: 12/13/2019 Smokeless Tobacco: Never Comments Unknown Sex and Gender Information Value Date Recorded Sex Assigned at Not on file Legal Sex Female 6:46 AM PERSONAL BANKING REPRESENTATIVE Gender Identity Not on file Sexual Orientation Straight 03/05/2021 1: 44 PM CDT documented as of this encounter Plan of Treatment Scheduled Procedures Name Priority Associated Diagnoses Date/Ti me COLONOSCOPY Encounter for screening colonoscopy COLONOSCOPY Encounter for screening colonoscopy documented as of this encounter Results * US Guided Thyroid Fine Needle Aspiration 1st Lesion (05/21/2021 9:37 AM PERSONAL BANKING REPRESENTATIVE) Anatomical Region Laterality Modality Thyroid N/A Ultrasound 05/21/2021 1:11 PM PERSONAL BANKING REPRESENTATIVE Impressions 05/21/2021 6:02 PM PERSONAL BANKING REPRESENTATIVE Successful ultrasound-guided fine-needle aspiration of the right mid thyroid and left upper thyroid nodules. Dictated by: Philip Mcintyre M.D. The radiology attending physician has personally reviewed this study, and had reviewed and/or edited this written report and agrees with it. Electronically signed by: Adriana Garrett MD Narrative 05/21/2021 6:02 PM PERSONAL BANKING REPRESENTATIVE EXAMINATION: ULTRASOUND-GUIDED THYROID FINE NEEDLE ASPIRATION HISTORY: [...] fine needle aspirates were handed to the ship engines operating engineer present during the procedure. Please refer to [...] fine needle aspirates were handed to the ship engines operating engineer present during the procedure. Please refer to [...] Adriana Garrett MD us Bull Taveras MD IMG US PROCEDURES Final Resul t documented in this encounter Visit Diagnoses Diagnosis Thyroid nodule- Primary Nontoxic uninodular goiter Thyroid nodule Nontoxic uninodular goiter documented in this encounter Care Teams Stone Sawyer Relationship Specialty Start Date End Date Bull Taveras MD [address] [address] PCP - General Internal Medicine 08/24/20 documented as of this encounter
--- OUTSIDE RECORDS SUMMARY | 2024-07-14 22:35 | XMS_ITS | Encounter Summary ---
Author Organization [facility] Healthcare Address [address] [place] [address] Care Team Providers Care Take Away Attendant Name Role Phone Bull Taveras MD Primary Care Provider [phone] Reason for Referral * Diagnostic Imaging (Routine) - Closed Specialty Diagnoses / Procedures Referred By Grecia paulino Referred To Contact Diagnoses Thyroid nodule Procedures US Thyroid Bull Taveras MD [address] [address] Phone: tel: fax: [address] [phone] Referral ID Status Reason Start Date Expiration Date Visits Re quested Visits Authorized [id number] Closed 03/27/2021 04/26/2022 1 1 Reason for Visit * Diagnostic Imaging (Routine) - Closed Specialty Diagnoses / Procedures Referred By Contjolene t Referred To Contact Diagnoses Thyroid nodule Procedures US Thyroid Bull Taveras MD [address] [address] Phone: tel: fax: [address] [phone] Referral ID Status Reason Start Date Expiration Date Visits Re quested Visits Authorized [id number] Closed 03/27/2021 04/26/2022 1 1 Encounter Details Date Type Department Care Team (Latest Contact Info) Description 04/30/2021 1:54 PM CDT - 04/30/2021 11:59 PM CDT Hospital Encounter 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 ACR TI-RADS recommendations TR5 (>=7 points) (risk [...] No FNA or follow-up US Dictated by: Marcela Blas PA-C The radiology attending physician has personally reviewed this study, and had reviewed and/or edited this written report and agrees with it. Electronically signed by: Argenis Carmen M.D. Narrative 04/30/2021 4:12 PM CDT EXAMINATION: THYROID SONOGRAM HISTORY: ??66-year-old female with thyroid nodules. Prior Biopsy: Patient states prior fine-needle aspiration at an outside facility, however these records are unavailable for review. Patient Risk Factors: None Prior Ultrasound: ??None FINDINGS: The thyroid is enlarged in size. ??The left lobe of the thyroid extends below the level of the clavicle. Size right lobe: 6.2 cm craniocaudal, 2.6 cm transverse, 2.3 cm AP. Size left lobe: 8.2 cm craniocaudal, 2.5 cm transverse, 2.6 cm AP. Size isthmus: 0.3 cm AP. Estimated total number of nodules >/= 1 cm: 2 Number of spongiform nodules >/= 2 cm not described below (TR1): 0 Number of mixed cystic and solid nodules >/= 1.5 cm not described below (TR2): 0 Nodule 1: Location: Right mid Size: 2.1 cm craniocaudal x 2.2 cm transverse x 1.4 cm AP Maximum Size: 2.2 cm Composition: Solid/almost completely solid (2) Echogenicity: Hypoechoic (2) Shape: Not taller than wide (0) Margins: Lobulated/irregular (2) Echogenic foci: Punctate echogenic foci (3) ACR TI-RADS total points: 9 ACR TI-RADS risk category: TR5 (7 or more points) ACR TI-RADS recommendation: US-guided fine needle aspiration Nodule 2: Location: Left upper Size: 1.5 cm craniocaudal x 1.4 cm transverse x 1.3 cm AP Maximum Size: 1.5 cm Composition: Solid/almost completely solid (2) Echogenicity: Hypoechoic (2) Shape: Not taller than wide (0) Margins: Smooth (0) Echogenic foci: Punctate echogenic foci (3) ACR TI-RADS total points: 7 ACR TI-RADS risk category: TR5 (7 or more points) ACR TI-RADS recommendation: US-guided fine needle aspiration Additional confluent ill-defined solid and isoechoic nodules are seen in both lobes of the thyroid, especially the left inferior lobe. Procedure Note Argenis Carmen MD - 04/30/2021 EXAMINATION: THYROID SONOGRAM HISTORY: 66-year-old female with thyroid nodules. Prior Biopsy: Patient states prior fine-needle aspiration at an outside facility, however these records are unavailable for review. Patient Risk Factors: None Prior Ultrasound: None FINDINGS: The thyroid is enlarged in size. The left lobe of the thyroid extends below the level of the clavicle. Size right lobe: 6.2 cm craniocaudal, 2.6 cm transverse, 2.3 cm AP. Size left lobe: 8.2 cm craniocaudal, 2.5 cm transverse, 2.6 cm AP. Size isthmus: 0.3 cm AP. Estimated total number of nodules >/= 1 cm: 2 Number of spongiform nodules >/= 2 cm not described below (TR1): 0 Number of mixed cystic and solid nodules >/= 1.5 cm not described below (TR2): 0 Nodule 1: Location: Right mid Size: 2.1 cm craniocaudal x 2.2 cm transverse x 1.4 cm AP Maximum Size: 2.2 cm Composition: Solid/almost completely solid (2) Echogenicity: Hypoechoic (2) Shape: Not taller than wide (0) Margins: Lobulated/irregular (2) Echogenic foci: Punctate echogenic foci (3) ACR TI-RADS total points: 9 ACR TI-RADS risk category: TR5 (7 or more points) ACR TI-RADS recommendation: US-guided fine needle aspiration Nodule 2: Location: Left upper Size: 1.5 cm craniocaudal x 1.4 cm transverse x 1.3 cm AP Maximum Size: 1.5 cm Composition: Solid/almost completely solid (2) Echogenicity: Hypoechoic (2) Shape: Not taller than wide (0) Margins: Smooth (0) Echogenic foci: Punctate echogenic foci (3) ACR TI-RADS total points: 7 ACR TI-RADS risk category: TR5 (7 or more points) ACR TI-RADS recommendation: US-guided fine needle aspiration Additional confluent ill-defined solid and isoechoic nodules are seen in both lobes of the thyroid, especially the left inferior lobe. IMPRESSION: Right and left thyroid nodules meet criteria for fine-needle aspiration per ACR TI RADS guidelines. ACR TI-RADS recommendations TR5 (>=7 points) (risk [...] No FNA or follow-up US Dictated by: Marcela Blas PA-C The radiology attending physician has personally reviewed this study, and had reviewed and/or edited this written report and agrees with it. Electronically signed by: Argenis Carmen M.D. us Bull Taveras MD IMG US PROCEDURES Final Resul t documented in this encounter Visit Diagnoses Diagnosis Thyroid nodule Nontoxic uninodular goiter documented in this encounter Care Teams Take Away Attendant Relationship Specialty Start Date End Date Bull Taveras MD [address] [place] [id number] PCP - General Internal Medicine 08/24/20 documented as of this encounter
--- OUTSIDE RECORDS SUMMARY | 2024-07-14 22:35 | XMS_ITS | Encounter Summary ---
Author Organization [facility] Address [address] [place] [address] Care Team Providers Care Mailmaster Name Role Phone Bull Taveras MD Primary Care Provider [phone] Reason for Visit * Reason Comments Hyperlipidemia Hypertension Atrial Fibrillation Encounter Details Date Type Department Care Team (Late st Contact Info) Description 09/07/2021 8:15 AM MANAGER CATH LAB Office Visit [facility] [address] [facility] [address] [facility] [place] [address] Bull Taveras MD [address] [facility] [address] [place] [address] Paroxysmal atrial fibrillation (CMS/HCC) (HCC) (Primary Dx); Stage 3a chronic kidney disease (HCC); Thyroid nodule; Polyarthritis; Essential hypertension; Hyperlipidemia, unspecified hyperlipidemia type; Hyperlipidemia, unspecified hyperlipidemia type ; Hyperglycemia Social History Tobacco Use Types Packs/Day Years Used Date Smoking Tobacco: Former Cigarettes Q uit: 12/13/2019 Smokeless Tobacco: Never Comments Unknown Sex and Gender Information Value Date Recorded Sex Assigned at Not on file Legal Sex Female 6:46 AM MANAGER CATH LAB Gender Identity Not on file Sexual Orientation Straight 03/05/2021 1: 44 PM CDT documented as of this encounter Last Filed Vital Signs Vital Sign Reading Time Taken Comments Blood Pressure 127/67 09/07/2021 8:07 AM MANAGER CATH LAB Pulse 74 09/07/2021 8:07 AM MANAGER CATH LAB Temperature - - Respiratory Rate - - Oxygen Saturation - - Inhaled Oxygen Concentration - - Weight 92.4 kg (203 lb 12.8 oz) 09/07/2021 8:07 AM MANAGER CATH LAB Height 162.6 cm (5' 4 ) 09/07/2021 8:07 AM MANAGER CATH LAB Body Mass Index 34.98 09/07/2021 8:07 AM MANAGER CATH LAB documented in this encounter Progress Notes * Bull Taveras MD - 09/07/2021 8:15 AM CST Images from the original note were not included. Subjective/Objective Patient ID: Lisa Scott is a 66 y.o. female. Chief Complaint Hyperlipidemia, Hypertension, and Atrial Fibrillation HPI Patient here for evaluation of atrial [...] mask faithfully for the last 2 months. A previous echocardiogram done in 2020 demonstrated left atrial enlargement. Thyroid laboratories reportedly were done at the outside hospital, reportedly with a low TSH. Unfortunately I do not have those results at this time. Currently she feels well. She has had [...] Former Smoker Quit date: 12/13/2019 Years since quittin.7 ??? Smokeless tobacco: Never Used Substance Use Topics ??? Drug use: Yes Types: Alcohol Immunization History Administered Date(s) Administered ??? Influenza, Quadrivalent, High Dose, Preservative Free, Intrr 07/03/2020 ??? Influenza, Quadrivalent, Recombinant, Egg Free, Preservative Free, Intramuscular 07/29/2019 ??? Influenza, Quadrivalent, Split, Preservative Free, Intramuscular 07/16/2013 ??? Moderna SARS-CoV-2 Vaccination 08/23/2020, 09/26/2020 ??? Pneumococcal Conjugate PCV 13 07/29/2019 Current Outpatient Medications Medication Sig ??? acetaminophen (TYLENOL) 500 mg tablet Take 500 mg by mouth every 6 (six) hours as needed for pain ??? albuterol (PROAIR RESPICLICK) 90 mcg/actuation inhaler Inhale 2 puffs every 6 (six) hours as needed for wheezing ??? Anoro Ellipta 62.5-25 mcg/actuation blister with device Inhale 1 puff by mouth once daily ??? aspirin 81 mg enteric coated tablet Take 81 mg by mouth daily ??? atorvastatin (LIPITOR) 10 mg tablet Take [...] Take 120 mg by mouth every morning ??? Eliquis 5 mg tablet Take 5 mg by mouth every 12 (twelve) hours ??? lisinopriL (PRINIVIL,ZESTRIL) 10 mg tablet Take 1 tablet (10 mg total) by mouth daily Review of Systems Constitutional: Negative for [...] Genitourinary: Negative for dysuria and hematuria. Musculoskeletal: Positive for arthralgias. Negative for back pain and joint swelling. Skin: Negative for rash. Neurological: Negative for dizziness, weakness and headaches. Hematological: Negative for adenopathy. Does not bruise/bleed easily. Psychiatric/Behavioral: Negative for dysphoric mood. The patient is not nervous/anxious. Breast: Negative for tenderness and lump(s). Patient Vital Signs for the past 24 hrs: BP Pulse Height Weight 09/07/21 0807 127/67 74 162.6 cm (5' 4 ) 92.4 kg (203 lb 12.8 oz) Wt Readings from Last 3 Encounters: 09/07/21 92.4 kg (203 lb 12.8 oz) 09/04/21 91.6 kg (202 lb) 08/07/21 91.2 kg (201 lb) Physical Exam Vitals and nursing note [...] are equal, round, and reactive to light. Neck: Thyroid: Thyroid mass present. Cardiovascular: Rate and Rhythm: Normal rate and [...] Diagnoses and all orders for this visit: Paroxysmal atrial fibrillation (CMS/HCC) (HCC) (I48.0) (Primary) Assessment & Plan: New onset atrial fibrillation. Currently appears to be in normal sinus rhythm. Is on anticoagulation and diltiazem. Uses her CPAP mask faithfully. Will check TSH T4 and T3. Has upcoming appointment with Cardiology. Stage 3a chronic kidney disease (HCC) (N18.31) Assessment & Plan: Has been following with Nephrology. Thyroid nodule (E04.1) Assessment & Plan: Check TSH T4 and T3. Thyroid exam is unchanged Polyarthritis (M13.0) Assessment & Plan: Has recently seen Dr. Lopez for evaluation of hand pain Essential hypertension (I10) Assessment & Plan: Blood pressure is at target on today's medications. Continue current medication for target directedtherapy Hyperlipidemia, unspecified hyperlipidemia type (E78.5) Assessment & Plan: On medication doing well Other orders - POCT lipid panel - POCT glucose Labs No results found for: HGBA1C No results found for: POCCHOL No results found for: POCHDL No results found for: POCLDL No results found for: POCTRIG No results found for: A1C Lab Results [...] 08/07/2021 LOTNUMBER [id number] 08/07/2021 Bull Taveras MD GER CATH LAB documented in this encounter Miscellaneous Notes * Assessment & Plan Note - Bull Taveras MD - 09/07/2021 8:45 AM MANAGER CATH LAB Associated Problem(s): Hyperlipidemia On medication doing well GER CATH LAB * Assessment & Plan Note - Bull Taveras MD - 09/07/2021 8:45 AM MANAGER CATH LAB Associated Problem(s): Stage 3a chronic kidney disease (HCC) Has been following with Nephrology. GER CATH LAB * Assessment & Plan Note - Bull Taveras MD - 09/07/2021 8:45 AM MANAGER CATH LAB Associated Problem(s): Thyroid nodule Check TSH T4 and T3. Thyroid exam is unchanged GER CATH LAB * Assessment & Plan Note - Bull Taveras MD - 09/07/2021 8:45 AM MANAGER CATH LAB Associated Problem(s): Polyarthritis Has recently seen Dr. Lopez for evaluation of hand pain GER CATH LAB * Assessment & Plan Note - Bull Taveras MD - 09/07/2021 8:45 AM MANAGER CATH LAB Associated Problem(s): Essential hypertension Blood pressure is at target on today's medications. Continue current medication for target directedtherapy GER CATH LAB * Assessment & Plan Note - Bull aTveras MD - 09/07/2021 8:44 AM MANAGER CATH LAB Associated Problem(s): Atrial fibrillation (CMS/HCC) (HCC) New onset atrial fibrillation. Currently appears to be in normal sinus rhythm. Is on anticoagulation and diltiazem. Uses her CPAP mask faithfully. Will check TSH T4 and T3. Has upcoming appointment with Cardiology. GER CATH LAB documented in this encounter Plan of Treatment Scheduled Procedures Name Priority Associated Diagnoses Date/Ti me COLONOSCOPY Encounter for screening colonoscopy COLONOSCOPY Encounter for screening colonoscopy documented as of this encounter Procedures Procedure Name Priority Date/Time Associated Diagnosis Comments T3, FREE Routine 09/07/2021 8:58 AM MANAGER CATH LAB Paroxysmal atrial fibrillation (CMS/HCC) (HCC) Thyroid nodule TSH Routine 09/07/2021 8:58 AM MANAGER CATH LAB Paroxysmal atrial fibrillation (CMS/HCC) (HCC) Thyroid nodule T4, FREE Routine 09/07/2021 8:58 AM MANAGER CATH LAB Paroxysmal atrial fibrillation (CMS/HCC) (HCC) Thyroid nodule POCT GLUCOSE [id number] Routine 09/07/2021 8: 54 AM MANAGER CATH LAB Paroxysmal atrial fibrillation (CMS/HCC) (HCC) Thyroid nodule Hyperglycemia POCT LIPID PANEL Routine 09/07/2021 8:54 AM MANAGER CATH LAB Paroxysmal atrial fibrillation (CMS/HCC) (HCC) Thyroid nodule Hyperlipidemia, unspecified hyperlipidemia type documented in this encounter Results * T3, free (09/07/2021 8:58 AM MANAGER CATH LAB) Triiodothyronin e,Free,Serum 3.5 2.0 - 4.4 pg/mL [facility] - 01 Blood specimen (specimen) 09/07/2021 8:58 AM MANAGER CATH LAB 09/07/2021 Narrative [facility] - 09/08/2021 8:13 AM MANAGER CATH LAB Performed at: ?? [address] ??[id number] Corporate Tax Manager: Singh Chavez PhD, Phone: ??[phone] Bull Taveras MD LAB BLOOD ORDERABLES Final Re sult Performing Organization Address [facility] de Phone Number [facility] - 01 * T4, free (09/07/2021 8:58 AM MANAGER CATH LAB) T4,Free(Direct) 1.11 0.82 - 1.77 ng/dL [facility] - 01 Blood specimen (specimen) 09/07/2021 8:58 AM MANAGER CATH LAB 09/07/2021 Narrative [facility] - 09/08/2021 8:13 AM MANAGER CATH LAB Performed at: ??01 - [address] ??[id number] Corporate Tax Manager: Singh Chavez PhD, Phone: ??[phone] Bull Taveras MD LAB BLOOD ORDERABLES Final Re sult Performing Organization Address [facility] de Phone Number [facility] - * TSH (09/07/2021 8:58 AM MANAGER CATH LAB) TSH 0.692 0.450 - 4.500 uIU/mL [facility] - 01 Blood specimen (specimen) 09/07/2021 8:58 AM MANAGER CATH LAB 09/07/2021 Narrative [facility] - 09/08/2021 8:13 AM MANAGER CATH LAB Performed at: ??[address] ??[id number] Corporate Tax Manager: Singh Chavez PhD, Phone: ??[phone] Bull Taveras MD LAB BLOOD ORDERABLES Final Re sult Performing Organization Address [facility] de Phone Number [facility] - * POCT glucose (09/07/2021 8:54 AM MANAGER CATH LAB) Glucose Blood, POC 99 mg/dL Blood specimen (specimen) 09/07/2021 8:54 AM MANAGER CATH LAB us Bull Taveras MD POINT OF CARE TEST ORDERABLES Final Result * POCT lipid panel (09/07/2021 8:54 AM MANAGER CATH LAB) Cholesterol, POC 183 mg/dL HDL, POC 78 mg/dL Triglycerides, POC 92 mg/dL LDL Cholesterol POC 87 mg/dL Chol/HDL Ratio, POC 1.1 Non-HDL Cholesterol, POC 105 mg/dL Cholesterol Total, POC 183 mg/dL Capillary blood 09/07/2021 8 :54 AM MANAGER CATH LAB us Bull Taveras MD POINT OF CARE TEST ORDERABLES Final Result documented in this encounter Visit Diagnoses Diagnosis Paroxysmal atrial fibrillation (CMS/HCC) (HCC)- Primary Atrial fibrillation Stage 3a chronic kidney disease (HCC) Thyroid nodule Nontoxic uninodular goiter Polyarthritis Unspecified polyarthropathy or polyarthritis, site unspecified Essential hypertension Unspecified essential hypertension Hyperlipidemia, unspecified hyperlipidemia type Hyperglycemia Other abnormal glucose documented in this encounter Historical Medications * This list may reflect changes made after this encounter. aspirin 81 mg enteric coated tablet Take 325 mg by mouth daily 09/18/2021 added in this encounter Care Teams Mailmaster Relationship Specialty Start Date End Date Bull Taveras MD [address] [place] [address] PCP - General Internal Medicine 08/24/20 documented as of this encounter
--- OUTSIDE RECORDS SUMMARY | 2024-07-14 22:35 | XMS_ITS | Encounter Summary ---
Author Organization [facility] Address [address] [place] [address] Care Team Providers Care Core Drier Name Role Phone Bull Taveras MD Primary Care Provider [phone] Reason for Referral * Diagnostic Imaging (Routine) - Closed Specialty Diagnoses / Procedures Referred By Contac t Referred To Contact Diagnoses Thyroid nodule Procedures US Thyroid Bull Taveras MD [address] [facility] [place] [address] Phone: tel: fax: [address] [phone] Referral ID Status Reason Start Date Expiration Date Visits Re quested Visits Authorized [id number] Closed 03/27/2021 04/26/2022 1 1 Encounter Details Date Type Department Care Team (Late st Contact Info) Description 03/27/2021 Orders Only [facility] [address] [facility] [address] [facility] [place] [address] Bull Taveras MD [address] [facility] [address] [place] [address] Thyroid nodule (Primary Dx) Social History Tobacco Use Types Packs/Day Years Used Date Smoking Tobacco: Former Cigarettes Q uit: 12/13/2019 Smokeless Tobacco: Never Comments Unknown Sex and Gender Information Value Date Recorded Sex Assigned at Not on file 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 Electronically signed by: Roc Meneses 04/30/2021 4:12 PM CDT EXAMINATION: THYROID SONOGRAM [...] goiter documented in this encounter Care Teams Core Drier Relationship Specialty Start Date End Date Bull Taveras MD [address] [address] PCP - General Internal Medicine 08/24/20 documented as of this encounter
--- OUTSIDE RECORDS SUMMARY | 2024-07-14 22:35 | XMS_ITS | Encounter Summary ---
Author Organization [facility] Address [address] [place] [address] Phone Care Team Providers Care Waterfront Director Name Role Phone Bull Taveras MD Primary Care Provider [phone] Reason for Visit * Consultation (Routine) - Closed Specialty Diagnoses / Procedures Referred By Contac t Referred To Contact Nephrology Diagnoses Stage 3 chronic kidney disease, unspecified whether stage 3a or 3b CKD (HCC) Bull Taveras MD [address] [facility] [address] [place] [address] Phone: tel: fax: [facility] (All Locations) Referral ID Status Reason Start Date Expiration Date V isits Requested Visits Authorized [id number] Closed Specialty Services Required 03/27/2021 10/26/2021 20 20 Encounter Details Date Type Department Care Team (Late st Contact Info) Description 08/07/2021 9:15 AM BRAKE COUPLER DINKEY Office Visit [facility] 5th [place] [address] [place] [id number] Rafael Allred MD [address] [facility] [address] [place] [address] Stage 3a chronic kidney disease (HCC) (Primary Dx); Essential hypertension; DERICK (renal osteodystrophy); Hyperlipidemia, unspecified hyperlipidemia type Social History Tobacco Use Types Packs/Day Years Used Date Smoking Tobacco: Former Cigarettes Q uit: 12/13/2019 Smokeless Tobacco: Never Comments Unknown Sex and Gender Information Value Date Recorded Sex Assigned at Not on file Legal Sex Female 6:46 AM BRAKE COUPLER DINKEY Gender Identity Not on file Sexual Orientation Straight 03/05/2021 1: 44 PM CDT documented as of this encounter Last Filed Vital Signs Vital Sign Reading Time Taken Comments Blood Pressure 154/78 08/07/2021 9:09 AM BRAKE COUPLER DINKEY Pulse 80 08/07/2021 9:09 AM BRAKE COUPLER DINKEY Temperature 36.7 ??C (98 ??F) 08/07/2021 9:09 AM BRAKE COUPLER DINKEY Respiratory Rate - - Oxygen Saturation - - Inhaled Oxygen Concentration - - Weight 91.2 kg (201 lb) 08/07/2021 9:09 AM BRAKE COUPLER DINKEY Height 162.6 cm (5' 4 ) 08/07/2021 9:09 AM BRAKE COUPLER DINKEY Body Mass Index 34.5 08/07/2021 9:09 AM BRAKE COUPLER DINKEY documented in this encounter Patient Instructions * Patient Instructions* Rafael Allred MD - 08/07/2021 9:15 AM BRAKE COUPLER DINKEY Get an Omron 3. ~$30-35 on [employer]. Check BP daily. Your goal BP is <130/80. Start atorvastatin 10 mg pill every night for your cholesterol. Start Chlorthalidone 1/2 tablet every AM (12.5 mg daily) for BP. E COUPLER DINKEY E COUPLER DINKEY documented in this encounter Ordered Prescriptions Prescription Sig Dispense Quantity Refills Last Filled Start Date End Date atorvastatin (LIPITOR) 10 mg tabletIndications: Stage 3a chronic kidney disease (HCC) Take 1 tablet (10 mg total) by mouth nightly 30 tablet 11 08/07/2021 2 chlorthalidone 25 mg tabletIndications: Essential hypertension Take 0.5 tablets (12.5 mg total) by mouth daily 15 tablet 11 08/07/2021 3 calcium carbonate (OS-SHERLEY) 1,250 mg (500 mg elemental) tabletIndications: osteopenia Take 2 tablets (2,500 mg total) by mouth daily 60 tablet 11 08/07/2021 3 documented in this encounter Progress Notes * Rafael Allred MD - 08/07/2021 9:15 AM CST PATIENT NAME: Lisa Scott : 1955 08/07/2021 CHIEF COMPLAINT: No chief complaint on file. HISTORY OF PRESENT ILLNESS: This is a 66 y.o. female who has been referred for consultation of chronic kidney disease, stage 3 Secondary to Unknown Etiology by Dr. Taveras. Since the last visit, the patient reports her BP was 140/80 at home today. She is now off prednisone, but her hands are worse. She denies heavy NSAID, renal stones, UTI's. Has nocturia 1-5x. Denies hematuria. b We will try to get old labs from Dr. Alvarez, whom she saw about 1 year ago. PROBLEM LIST: Patient Active Problem List Diagnosis ??? Essential hypertension ??? Polyarthritis ??? Thyroid nodule ??? Stage 3a chronic kidney disease (HCC) ??? Shortness of breath ??? Airway obstruction ??? DERICK (renal osteodystrophy) ??? Other emphysema (CMS/HCC) (HCC) ??? Hyperlipidemia She has COPD - emphysema. Smoked until 2019. ALLERGIES: Allergies Allergen Reactions ??? Novocain [Procaine] Anaphylaxis Heart races CURRENT MEDICATIONS: Current Outpatient Medications: ??? acetaminophen (TYLENOL) 500 mg tablet, Take 500 mg by mouth every 6 (six) hours as needed for pain, Disp: , Rfl: ??? albuterol (PROAIR RESPICLICK) 90 mcg/actuation inhaler, Inhale 2 puffs every 6 (six) hours as needed for wheezing, Disp: 1 Inhaler, Rfl: 11 ??? Anoro Ellipta 62.5-25 mcg/actuation blister with device, Inhale 1 puff by mouth once daily, Disp: 60 each, Rfl: 5 ??? cetirizine (ZyrTEC) 10 mg tablet, Take 10 mg by mouth daily Leonardot Brand Allergy, Disp: , Rfl: ??? cholecalciferol (VITAMIN D-3) 25 mcg (1,000 unit) tablet, Take 1 tablet (1,000 Units total) by mouth daily, Disp: 30 tablet, Rfl: 11 ??? lisinopriL (PRINIVIL,ZESTRIL) 10 mg tablet, Take 1 tablet (10 mg total) by mouth daily, Disp: 90 tablet, Rfl: 1 ??? atorvastatin (LIPITOR) 10 mg tablet, Take 1 tablet (10 mg total) by mouth nightly, Disp: 30 tablet, Rfl: 11 ??? calcium carbonate (OS-SHERLEY) 1,250 mg (500 mg elemental) tablet, Take 2 tablets (2,500 mg total) by mouth daily, Disp: 60 tablet, Rfl: 11 ??? chlorthalidone 25 mg tablet, Take 0.5 tablets (12.5 mg total) by mouth daily, Disp: 15 tablet, Rfl: 11 PHYSICAL EXAM: Vitals BP 154/78 Pulse 80 Temp 36.7 ??C (98 ??F) Ht 162.6 cm (5' 4 ) Wt 91.2 kg (201 lb) BMI 34.50 kg/m?? GENERAL: Alert, NAD, overweight EYES: Sclerae white, EOMI HEENT: Atraumatic, moist mucous membranes. MUSCULOSKELETAL: Mild Kyphosis high thoracici HEART: Regular rate and rhythm, Normal S1, S2, No murmurs, rubs or gallops. LUNGS: Clear to auscultation bilaterally. ABDOMEN: Soft, nontender, No HSM. EXTREMITIES: 1+ edema to mid shins SKIN: Intact, no rashes. NEUROLOGIC: Moving all extremities, No focal deficits. LABS: Recent Results (from the past 1008 hour(s)) CBC with auto differential Collection Time: 07/26/21 2:43 PM Result Value Ref Range WBC 6.7 3.8 - 9.9 K/cumm Hgb 12.4 11.9 - 15.5 g/dL Hct 39.8 35.6 - 45.5 % Plt 342 150 - 400 K/cumm MPV 10.3 9.1 - 12.3 fL RBC 4.44 3.90 - 5.20 M/cumm MCV 89.6 81.3 - 96.4 fL MCH 27.9 27.1 - 33.3 pg MCHC 31.2 (L) 32.3 - 35.7 g/dL RDW CV 13.2 11.1 - 14.9 % RDW SD 43.5 35.7 - 48.1 fL NRBC abs 0.00 0.00 - 0.01 K/cumm Renal function panel Collection Time: 07/26/21 2:43 PM Result Value Ref Range Sodium 141 135 - 145 mmol/L Potassium, pl 4.3 3.3 - 4.9 mmol/L Chloride 103 97 - 110 mmol/L CO2 24 22 - 32 mmol/L Anion gap 14 2 - 15 mmol/L BUN 23 8 - 25 mg/dL Creatinine 1.57 (H) 0.60 - 1.10 mg/dL Glucose 89 70 - 199 mg/dL Calcium 9.4 8.5 - 10.3 mg/dL Phosphorus, pl 3.8 2.3 - 4.5 mg/dL Albumin 4.4 3.5 - 5.0 g/dL Differential, auto Collection Time: 07/26/21 2:43 PM Result Value Ref Range Neutrophil abs 3.7 1.7 - 6.5 K/cumm Imm gran abs 0.0 0.0 - 0.1 K/cumm Lymphocyte abs 2.1 0.8 - 3.3 K/cumm Monocyte abs 0.6 0.2 - 0.8 K/cumm Eosinophil abs 0.2 0.0 - 0.5 K/cumm Basophil abs 0.1 0.0 - 0.1 K/cumm Neutrophil pct 54.9 % Imm gran pct 0.1 % Lymphocyte pct 30.9 % Monocyte pct 9.6 % Eosinophil pct 3.0 % Basophil pct 1.5 % eGFR Collection Time: 07/26/21 2:43 PM Result Value Ref Range eGFR 36 mL/min/1.73 m2 POCT urinalysis dipstick Collection Time: 08/07/21 9:28 AM Result Value Ref Range Glucose, ur, POC Negative Negative mg/dL Bilirubin, ur, POC Negative Negative, Small, Moderate, Large Ketones, ur, POC Negative Negative Specific [place], POC 1.015 1.005 - 1.030 Blood, ur, POC Negative Negative pH, ur, POC 5.5 5.0 - 8.0 Protein, ur, POC Negative Negative Urobilinogen, urine, POC 0.2 0.2 - 1.0 mg/dL Nitrite, ur, POC Negative Negative Leukocytes, ur, POC Negative Negative Lot Number [id number] IMAGING: Complete Renal Ultrasound 12/15/20 EXAMINATION: COMPLETE [...] Stage 3a chronic kidney disease (HCC) - POCT urinalysis dipstick - atorvastatin (LIPITOR) 10 mg tablet; Take 1 tablet (10 mg total) by mouth nightly - Basic metabolic panel; Future - Renal function panel; Future - PTH; Future - Albumin Creatinine Ratio, Urine; Future - CBC with auto differential; Future Essential hypertension - chlorthalidone 25 mg tablet; Take 0.5 tablets (12.5 mg total) by mouth daily DERICK (renal osteodystrophy) - PTH; Future Hyperlipidemia, unspecified hyperlipidemia type Other orders - calcium carbonate (OS-SHERLEY) 1,250 mg (500 mg elemental) tablet; Take 2 tablets (2,500 mg total) by mouth daily 1.CKD, stage 3B: The patient has no clear reason for a decrease in renal function except prior HTN.Her Creatinine Clearance was 52 ml/min. Most recent values are 44% and 36%. US is normal. She has not had an appreciable change in her function. She has no albuminuria, so increasing lisinopril is not necessary. We will add Chlorthalidone for better BP control. We can consider SGLT2i later. 2. Hypertension: This is under fair control. Add chlorthalidone. 3. DERICK: Start vitamin D. Check PTH today. 4. Increased CV risk from CKD: She is not on a statin. We decided to start at a low dose of atorvastatin 10 mg nightly. DISPOSITION: The patient will follow-up 4 month. E COUPLER DINKEY documented in this encounter Miscellaneous Notes * Addendum Note - Theodore Fernando RMA - 08/07/2021 9:15 AM CSTAddended by: THEODORE FERNANDO on: 01/29/2022 04:09 PM Modules accepted: Orders documented in this encounter Plan of Treatment Scheduled Procedures Name Priority Associated Diagnoses Date/Ti me COLONOSCOPY Encounter for screening colonoscopy COLONOSCOPY Encounter for screening colonoscopy documented as of this encounter Procedures Procedure Name Priority Date/Time Associated Diagnosis Comments CBC WITH AUTO DIFFERENTIAL Routine 02/14/2022 11:18 AM CDT Stage 3a chronic kidney disease (HCC) ALBUMIN CREATININE RATIO, URINE Routine 02/14/2022 11:18 AM CDT Stage 3a chronic kidney disease (HCC) PTH Routine 02/14/2022 11:18 AM CDT Stage 3a chronic kidney disease (HCC) DERICK (renal osteodystrophy) RENAL FUNCTION PANEL Routine 02/14/2022 11:18 AM CDT Stage 3a chronic kidney disease (HCC) POCT URINALYSIS DIPSTICK Routine 08/07/2021 9:28 AM BRAKE COUPLER DINKEY Stage 3a chronic kidney disease (HCC) documented in this encounter Results * (ABNORMAL) Renal function panel (02/14/2022 11:18 AM CDT) Glucose 95 65 - 99 mg/dL [facility] - 01 BUN 21 8 - 27 mg/dL [facility] - 01 Creatinine, Serum 1.31(H) 0.57 - 1.00 mg/dL [facility] - 01 eGFR 44(L) >59 mL/min/1.7 3 [facility] - 01 BUN/creat ratio 16 12 - 28 [facility] - 01 Sodium 144 134 - 144 mmol/L [facility] - 01 Potassium, sr 5.3(H) 3.5 - 5.2 mmol/L [facility] - 01 Chloride 106 96 - 106 mmol/L [facility] - 01 CO2 25 20 - 29 mmol/L [facility] - 01 Calcium 9.8 8.7 - 10.3 mg/dL [facility] - 01 Phosphorus, sr 3.3 3.0 - 4.3 mg/dL [facility] - 01 Albumin 4.5 3.8 - 4.8 g/dL [facility] - 01 Blood specimen (specimen) 02/14/2022 11:18 AM CDT 02/14/2022 Narrative [facility] - 02/15/2022 8:16 AM CDT Performed at: ??01 - [facility] ??[id number] Seal Mixing Operator: Singh Chavez PhD, Phone: ??[phone] Rafael Allred MD LAB BLOOD ORDERABLES Final Re sult Performing Organization Address [facility] de Phone Number [facility] - * PTH (02/14/2022 11:18 AM CDT) PTH Intact 29 15 - 65 pg/mL [facility] - 01 Blood specimen (specimen) 02/14/2022 11:18 AM CDT 02/14/2022 Narrative [facility] - 02/15/2022 11:10 AM CDT Performed at: ??01 - [facility] ??[id number] Seal Mixing Operator: Singh Chavez PhD, Phone: ??[phone] Rafael Allred MD LAB BLOOD ORDERABLES Final Re sult Performing Organization Address [facility] de Phone Number [facility] - * Albumin Creatinine Ratio, Urine (02/14/2022 11:18 AM CDT) Creatinine ur 56.9 Not Estab. mg/dL [facility] - 01 Microalbumin, ur <3.0 Not Estab. ug/mL [facility] - 01 Comment:Verified by repeat analysis Microalbumin/cre at ratio <5 0 - 29 mg/g creat [facility] - 01 Comment: ? Normal: ?0 - ??29 ? Moderately increased: 30 - 300 ? Severely increased: ? >300 Urine 02/14/2022 11:1 8 AM CDT 02/14/2022 Narrative [facility] - 02/15/2022 10:10 AM CDT Performed at: ??01 - [facility] [address], [place], [place] ??[id number] Seal Mixing Operator: Singh Chavez PhD, Phone: ??[phone] us Rafael Allred MD LAB URINE ORDERABLES Final Re sult [facility] - 01 * CBC with auto differential (02/14/2022 11:18 AM CDT) WBC 7.2 3.4 - 10.8 x10E3/uL [facility] - 01 RBC 4.37 3.77 - 5.28 x10E6/uL [facility] - 01 Hgb 12.6 11.1 - 15.9 g/dL [facility] - 01 Hct 38.1 34.0 - 46.6 % [facility] - 01 MCV 87 79 - 97 fL [facility] - 01 MCH 28.8 26.6 - 33.0 pg [facility] - 01 MCHC 33.1 31.5 - 35.7 g/dL [facility] - 01 Rdw 13.1 11.7 - 15.4 % [facility] - 01 Platelets 329 150 - 450 x10E3/uL [facility] - 01 Neutrophils pct 56 Not Estab. % [facility] - 01 Lymphs pct 27 Not Estab. % [facility] - 01 Monocytes pct 9 Not Estab. % [facility] - 01 Eosinophils pct 6 Not Estab. % [facility] - 01 Basophil pct 2 Not Estab. % [facility] - 01 Neutrophil abs 4.0 1.4 - 7.0 x10E3/uL [facility] - 01 Lymphs (Absolute) 2.0 0.7 - 3.1 x10E3/uL [facility] - 01 Monocyte abs 0.6 0.1 - 0.9 x10E3/uL [facility] - 01 Eosinophils, abs 0.4 0.0 - 0.4 x10E3/uL [facility] - 01 Basophils, abs 0.1 0.0 - 0.2 x10E3/uL [facility] - 01 Immature Granulocytes 0 Not Estab. % [facility] - 01 Immature Grans (Abs) 0.0 0.0 - 0.1 x10E3/uL [facility] - 01 Blood specimen (specimen) 02/14/2022 11:18 AM CDT 02/14/2022 Narrative [facility] - 02/15/2022 9:11 AM CDT Performed at: ??01 - [facility] ??[id number] Seal Mixing Operator: Singh Chavez PhD, Phone: ??[phone] Rafael Allred MD LAB BLOOD ORDERABLES Final Re sult [facility] - 01 * POCT urinalysis dipstick (08/07/2021 9:28 AM BRAKE COUPLER DINKEY) Glucose, ur, POC Negative Negative mg/dL Bilirubin, ur, POC Negative Negative, Small, Moderate, Large Ketones, ur, POC Negative Negative Specific [place], POC 1.015 1.005 - 1.030 Blood, ur, POC Negative Negative pH, ur, POC 5.5 5.0 - 8.0 Protein, ur, POC Negative Negative Urobilinogen, urine, POC 0.2 0.2 - 1.0 mg/dL Nitrite, ur, POC Negative Negative Leukocytes, ur, POC Negative Negative Lot Number [id number] Urine 08/07/2021 9:28 AM BRAKE COUPLER DINKEY Rafael Allred MD POINT OF CARE TEST ORDERABLES Final Result documented in this encounter Visit Diagnoses Diagnosis Stage 3a chronic kidney disease (HCC)- Primary Essential hypertension Unspecified essential hypertension DERICK (renal osteodystrophy) Renal osteodystrophy Hyperlipidemia, unspecified hyperlipidemia type documented in this encounter Discontinued Medications Medication Sig Discontinue Reason Start Date End Da te predniSONE (DELTASONE) 5 mg tablet TAKE 1 TABLET BY MOUTH EVERY OTHER DAY 02/07/2021 08/07/2021 magnesium oxide 400 mg magnesium capsule Take 400 mg by mouth daily 08/07/2021 calcium carb-D3-mag ox-zinc ox 333 mg-133 unit -133 mg-5 mg tablet Take by mouth daily documented as of this encounter Care Teams Waterfront Director Relationship Specialty Start Date End Date Bull Taveras MD [address] [address] PCP - General Internal Medicine 08/24/20 documented as of this encounter
--- OUTSIDE RECORDS SUMMARY | 2024-07-14 22:35 | XMS_ITS | Encounter Summary ---
Author Organization [facility] Healthcare Address [address] [place] [address] Care Team Providers Care Tubular Stock Glass Bulb Machine Former Name Role Phone Bull Taveras MD Primary Care Provider [phone] Encounter Details Date Type Department Care Team (Late st Contact Info) Description 07/26/2021 5:45 PM ONION TOPPER Lab [address] [id number] Stage 3a chronic kidney disease (HCC); Essential hypertension Social History Tobacco Use Types Packs/Day Years Used Date Smoking Tobacco: Former Cigarettes Q uit: 12/13/2019 Smokeless Tobacco: Never Comments Unknown Sex and Gender Information Value Date Recorded Sex Assigned at Not on file Legal Sex Female 6:46 AM ONION TOPPER Gender Identity Not on file Sexual Orientation Straight 03/05/2021 1: 44 PM CDT documented as of this encounter Plan of Treatment Scheduled Procedures Name Priority Associated Diagnoses Date/Ti me COLONOSCOPY Encounter for screening colonoscopy COLONOSCOPY Encounter for screening colonoscopy documented as of this encounter Procedures Procedure Name Priority Date/Time Associated Diagnosis Comments EGFR Routine 07/26/2021 2:43 PM ONION TOPPER Stage 3a chronic kidney disease (HCC) Essential hypertension DIFFERENTIAL AUTO Routine 07/26/2021 2:4 3 PM ONION TOPPER Stage 3a chronic kidney disease (HCC) Essential hypertension CBC WITH AUTO DIFFERENTIAL Routine 07/26/2021 2:43 PM ONION TOPPER Stage 3a chronic kidney disease (HCC) Essential hypertension RENAL FUNCTION PANEL Routine 07/26/2021 2:43 PM ONION TOPPER Stage 3a chronic kidney disease (HCC) Essential hypertension documented in this encounter Results * eGFR (07/26/2021 2:43 PM ONION TOPPER) eGFR 36 mL/min/1. 73 m2 [facility] Comment: Interpretive Data Reference Interval Normal ?>/= 90 mL/min/1.73m2 Mildly decreased* ? 60 - 89 mL/min/1.73m2 Mildly to moderately decreased ?45 - 59 mL/min/1.73m2 Moderately to severely decreased ??30 - 44 mL/min/1.73m2 Severely decreased ?15 - 29 mL/min/1.73m2 Kidney Failure ?< 15 ??mL/min/1.73m2 *Relative to young adult level Estimated glomerular filtration rate is determined by the 2020 CKD-EPI equation recommended by the National Kidney Foundation (A Unifying Approach to GFR Estimation: Recommendations of the NKF-ASK Task Force on Reassessing the Inclusion of Race in Diagnosing Kidney Disease, JASN 202). The CKD-EPI equation should not be used for patients with unstable renal function and has not been validated in children and those over 70. Current interpretive data was last reviewed 2021. Blood 07/26/2021 2:43 PM ONION TOPPER 07/26/2021 6:04 PM ONION TOPPER us Rafael Allred MD LAB BLOOD ORDERABLES Final Re sult [facility] [address] Department [place] [address] * Differential, auto (07/26/2021 2:43 PM ONION TOPPER) Neutrophil abs 3.7 1.7 - 6.5 K/cumm [facility] Imm gran abs 0.0 0.0 - 0.1 K/cumm [facility] Lymphocyte abs 2.1 0.8 - 3.3 K/cumm [facility] Monocyte abs 0.6 0.2 - 0.8 K/cumm [facility] Eosinophil abs 0.2 0.0 - 0.5 K/cumm [facility] Basophil abs 0.1 0.0 - 0.1 K/cumm [facility] Neutrophil pct 54.9 % [facility] Comment: Interpretive Data Percent cell count reference ranges are not reported, since discordance with absolute values may lead to misinterpretation of CBC data. Current Interpretive Data was last revised on 2017. Imm gran pct 0.1 % [facility] Comment: Interpretive Data Percent cell count reference ranges are not reported, since discordance with absolute values may lead to misinterpretation of CBC data. Current Interpretive Data was last revised on 2017. Lymphocyte pct 30.9 % [facility] Comment: Interpretive Data Percent cell count reference ranges are not reported, since discordance with absolute values may lead to misinterpretation of CBC data. Current Interpretive Data was last revised on 2017. Monocyte pct 9.6 % [facility] Comment: Interpretive Data Percent cell count reference ranges are not reported, since discordance with absolute values may lead to misinterpretation of CBC data. Current Interpretive Data was last revised on 2017. Eosinophil pct 3.0 % [facility] Comment: Interpretive Data Percent cell count reference ranges are not reported, since discordance with absolute values may lead to misinterpretation of CBC data. Current Interpretive Data was last revised on 2017. Basophil pct 1.5 % [facility] Comment: Interpretive Data Percent cell count reference ranges are not reported, since discordance with absolute values may lead to misinterpretation of CBC data. Current Interpretive Data was last revised on 2017. Blood 07/26/2021 2:43 PM ONION TOPPER 07/26/2021 5:53 PM ONION TOPPER us Rafael Allred MD LAB BLOOD ORDERABLES Final Re sult Performing Organization Address City/[facility]/ZIP Co de Phone Number [facility] [address] Department [place] [address] * (ABNORMAL) Renal function panel (07/26/2021 2:43 PM ONION TOPPER) Pathologist [facility] Sodium 141 135 - 145 mmol/L [facility] Potassium, pl 4.3 3.3 - 4.9 mmol/L [facility] Chloride 103 97 - 110 mmol/L [facility] CO2 24 22 - 32 mmol/L [facility] Anion gap 14 2 - 15 mmol/L [facility] BUN 23 8 - 25 mg/dL [facility] Creatinine 1.57(H) 0.60 - 1.10 mg/dL [facility] Glucose 89 70 - 199 mg/dL [facility] Comment: Interpretive Data Fasting glucose >/= 126 [...] interpretive data was last revised 2017. Calcium 9.4 8.5 - 10.3 mg/dL [facility] Phosphorus, pl 3.8 2.3 - 4.5 mg/dL [facility] Albumin 4.4 3.5 - 5.0 g/dL [facility] Blood 07/26/2021 2:43 PM ONION TOPPER 07/26/2021 5:53 PM ONION TOPPER us Rafael Allred MD LAB BLOOD ORDERABLES Final Re sult [facility] [address] Department of Laboratories [place], [place] [id number] * (ABNORMAL) CBC with auto differential (07/26/2021 2:43 PM ONION TOPPER) Pathologist [facility] WBC 6.7 3.8 - 9.9 K/cumm [facility] Hgb 12.4 11.9 - 15.5 g/dL [facility] Hct 39.8 35.6 - 45.5 % [facility] Plt 342 150 - 400 K/cumm [facility] MPV 10.3 9.1 - 12.3 fL [facility] RBC 4.44 3.90 - 5.20 M/cumm [facility] MCV 89.6 81.3 - 96.4 fL [facility] MCH 27.9 27.1 - 33.3 pg [facility] MCHC 31.2(L) 32.3 - 35.7 g/dL [facility] RDW CV 13.2 11.1 - 14.9 % [facility] RDW SD 43.5 35.7 - 48.1 fL [facility] NRBC abs 0.00 0.00 - 0.01 K/cumm [facility] Blood 07/26/2021 2:43 PM ONION TOPPER 07/26/2021 5:53 PM ONION TOPPER us Rafael Allred MD LAB BLOOD ORDERABLES Final Re sult [facility] [address] Department [place] [address] documented in this encounter Visit Diagnoses Diagnosis Stage 3a chronic kidney disease (HCC) Essential hypertension Unspecified essential hypertension documented in this encounter Care Teams Tubular Stock Glass Bulb Machine Former Relationship Specialty Start Date End Date Bull Taveras MD [address] [place] [address] [address] [place] [address] PCP - General Internal Medicine 08/24/20 documented as of this encounter
--- OUTSIDE RECORDS SUMMARY | 2024-07-14 22:35 | XMS_ITS | Encounter Summary ---
Author Organization [facility] Address [address] [place] [address] Care Team Providers Care Earth Science Professor Name Role Phone Bull Taveras MD Primary Care Provider [phone] Reason for Referral * Consultation (Routine) - Closed Specialty Diagnoses / Procedures Referred By Contjolene paulino Referred To Contact Orthopedic Surgery Diagnoses Polyarthritis Pooja Chapman NP [address] [facility] [address] [place] [address] Phone: tel: fax: Odell Lopez MD [address] [facility] [address] [address] [place] [address] Phone: tel: fax: Referral ID Status Reason Start Date Expiration Date V isits Requested Visits Authorized [id number] Closed Specialty Services Required 07/29/2021 08/28/2022 1 1 Question Answer Please select the performing region: [facility] (All Locations) [167] To provider: ODELL LOPEZ I. 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 hand pain OTELEGRAPH OPERATOR Encounter Details Date Type Department Care Team (Late st Contact Info) Description 07/29/2021 Orders Only [facility] [address] [facility] [address] [facility] [place] [address] Pooja Chapman, REPAIR SERVICER [address] [facility] [address] [place] [address] Polyarthritis (Primary Dx) Social History Tobacco Use Types Packs/Day Years Used Date Smoking Tobacco: Former Cigarettes Q uit: 12/13/2019 Smokeless Tobacco: Never Comments Unknown Sex and Gender Information Value Date Recorded Sex Assigned at Not on file Legal Sex Female 6:46 AM RADIOTELEGRAPH OPERATOR Gender Identity Not on file Sexual Orientation Straight 03/05/2021 1: 44 PM CDT documented as of this encounter Plan of Treatment Scheduled Procedures Name Priority Associated Diagnoses Date/Ti la COLONOSCOPY Encounter for screening colonoscopy COLONOSCOPY Encounter for screening colonoscopy Scheduled Referrals Name Type Priority Associated Diagnoses Order Schedule Ambulatory referral to Orthopedic Surgery Outpatient Referral Routine Polyarthritis Expected: 08/05/2021 (Approximate), Expires: 07/29/2022 documented as of this encounter Visit Diagnoses Diagnosis Polyarthritis- Primary Unspecified polyarthropathy or polyarthritis, site unspecified documented in this encounter Care Teams Earth Science Professor Relationship Specialty Start Date End Date Bull Taveras MD [address] [facility] [address] [place] [address] PCP - General Internal Medicine 08/24/20 documented as of this encounter
--- OUTSIDE RECORDS SUMMARY | 2024-07-14 22:35 | XMS_ITS | Encounter Summary ---
Author Organization [facility] Address [address] [place] [address] Phone Care Team Providers Care Weight Inspector Name Role Phone Bull Taveras MD Primary Care Provider [phone] Reason for Visit * Consultation (Routine) - Closed Specialty Diagnoses / Procedures Referred By Contac t Referred To Contact Nephrology Diagnoses Stage 3 chronic kidney disease, unspecified whether stage 3a or 3b CKD (HCC) Bull Taveras MD [address] [facility] [address] [place] [address] Phone: tel: fax: [facility] (All Locations) Referral ID Status Reason Start Date Expiration Date V isits Requested Visits Authorized [id number] Closed Specialty Services Required 03/27/2021 10/26/2021 20 20 Encounter Details Date Type Department Care Team (Late st Contact Info) Description 03/27/2021 8:45 AM CDT Office Visit [facility] Nephrology [facility] [facility] 5th [place] [address] [place] [id number] Rafael Allred MD [address] [facility] [address] [place] [address] Stage 3a chronic kidney disease (HCC) (Primary Dx); Essential hypertension; DERICK (renal osteodystrophy); Stage 3 chronic kidney disease, unspecified whether stage 3a or 3b CKD (HCC) Social History Tobacco Use Types Packs/Day Years Used Date Smoking Tobacco: Former Cigarettes Q uit: 12/13/2019 Smokeless Tobacco: Never Comments Unknown Sex and Gender Information Value Date Recorded Sex Assigned at Not on file Legal Sex Female 6:46 AM STONECUTTER HAND Gender Identity Not on file Sexual Orientation Straight 03/05/2021 1: 44 PM CDT documented as of this encounter Last Filed Vital Signs Vital Sign Reading Time Taken Comments Blood Pressure 129/78 03/27/2021 8:53 AM CDT Pulse 78 03/27/2021 8:53 AM CDT Temperature 36.7 ??C (98.1 ??F) 03/27/2021 8:53 AM CD T Respiratory Rate - - Oxygen Saturation - - Inhaled Oxygen Concentration - - Weight 89.8 kg (198 lb) 03/27/2021 8:53 AM CDT Height 163.8 cm (5' 4.5 ) 03/27/2021 8:53 AM CDT Body Mass Index 33.46 03/27/2021 8:53 AM CDT documented in this encounter Patient Instructions * Patient Instructions* Rafael Allred MD - 03/27/2021 8:45 AM CDT Start vitamin D3 1000 units daily. Measure BP daily. Your goal is the upper number in the 110 to 130 range. I will see you in 4 months. documented in this encounter Ordered Prescriptions Prescription Sig Dispense Quantity Refills Last Filled Start Date End Date cholecalciferol (VITAMIN D-3) 25 mcg (1,000 unit) tabletIndications:C KD Take 1 tablet (1,000 Units total) by mouth daily 30 tablet 11 03/27/2021 documented in this encounter Progress Notes * Rafael Allred MD - 03/27/2021 8:45 AM CDT PATIENT NAME: Lisa Scott : 1955 03/27[birth year]2021 CHIEF COMPLAINT: No chief complaint on file. HISTORY OF PRESENT ILLNESS: This is a 66 y.o. female who has been referred for consultation of chronic kidney disease, stage 3 Secondary to Unknown Etiology by Dr. Taveras. The patient reports Dr. Renner was her PCP for several. She first heard of CKD when she saw a compressed yeast supervisor for arthritis issues. Started on celebrex. Got a colon ulcer when on motrin. Her HTN is x 5years. Has been on lisinopril x~5 years. OVERLOCK WAISTLINE JOINER at Dr. Renner's office told pt about 3 years ago her kidney function was a little low. She denies heavy NSAID, renal stones, UTI's. [...] (renal osteodystrophy) ??? Other emphysema (CMS/HCC) (HCC) She has COPD - emphysema. Smoked until 2019. PAST MEDICAL HISTORY: Past Medical History: Diagnosis Date ??? Arthritis ??? Hypertension PAST SURGICAL HISTORY: Past Surgical History: Procedure Laterality Date ??? REPAIR KNEE LIGAMENT ALLERGIES: Allergies Allergen Reactions ??? Novocain [Procaine] Anaphylaxis Heart races CURRENT MEDICATIONS: Current Outpatient Medications: ??? acetaminophen (TYLENOL) 500 mg tablet, Take 500 mg by mouth every 6 (six) hours as needed for pain, Disp: , Rfl: ??? albuterol (PROAIR RESPICLICK) 90 mcg/actuation inhaler, Inhale 2 puffs every 6 (six) hours as needed for wheezing, Disp: 1 Inhaler, Rfl: 11 ??? calcium carb-D3-mag ox-zinc ox 333 mg-133 unit -133 mg-5 mg tablet, Take by mouth daily, Disp: , Rfl: ??? cetirizine (ZyrTEC) 10 mg tablet, Take 10 mg by mouth daily [employer] Allergy, Disp: , Rfl: ??? hydrOXYchloroQUINE (PLAQUENIL) 200 mg tablet, Take 200 mg by mouth 2 (two) times a day, Disp: ,Rfl: ??? lisinopriL (PRINIVIL,ZESTRIL) 10 mg tablet, Take 1 tablet (10 mg total) by mouth daily, Disp: 90 tablet, Rfl: 1 ??? magnesium oxide 400 mg magnesium capsule, Take 400 mg by mouth daily, Disp: , Rfl: ??? predniSONE (DELTASONE) 5 mg tablet, TAKE 1 TABLET BY MOUTH EVERY OTHER DAY, Disp: 30 tablet, Rfl: 0 ??? umeclidinium-vilanteroL (ANORO ELLIPTA) 62.5-25 mcg/actuation blister with device, Inhale 1 puff daily, Disp: 1 each, Rfl: 5 FAMILY HISTORY: Family History Problem Relation Age of Onset ??? Diabetes Mother ??? Asthma Mother ??? COPD Mother ??? Atrial fibrillation Mother ??? Hyperlipidemia Mother ??? COPD Father ??? Kidney disease Neg Hx SOCIAL HISTORY: Social History Socioeconomic History ??? Marital status: Single Spouse name: Not on file ??? Number of children: Not on file ??? Years of education: Not on file ??? Highest education level: Not on file Occupational History ??? Not on file Tobacco Use ??? Smoking status: Former Smoker Quit date: 12/13/2019 Years since quittin.2 ??? Smokeless tobacco: Never Used Substance and Sexual Activity ??? Alcohol use: Not on file ??? Drug use: Yes Types: Alcohol ??? Sexual activity: Not on file Other Topics Concern ??? Not on file Social History Narrative ??? Not on file Social Determinants of Health Financial Resource Strain: ??? Difficulty of Paying Living Expenses: Not on file Food Insecurity: ??? Worried About Running Out of Food in the Last Year: Not on file ??? Ran Out of Food in the Last Year: Not on file Transportation Needs: ??? Lack of Transportation (Medical): Not on file ??? Lack of Transportation (Non-Medical): Not on file Physical Activity: ??? Days of Exercise per Week: Not on file ??? Minutes of Exercise per Session: Not on file Stress: ??? Feeling of Stress : Not on file Social Connections: ??? Frequency of Communication with Friends and Family: Not on file ??? Frequency of Social Gatherings with Friends and Family: Not on file ??? Attends Advent Services: Not on file ??? Active Member of Clubs or Organizations: Not on file ??? Attends Club or Organization Meetings: Not on file ??? Marital Status: Not on file Intimate Partner Violence: ??? Fear of Current or Ex-Partner: Not on file ??? Emotionally Abused: Not on file ??? Physically Abused: Not on file ??? Sexually Abused: Not on file REVIEW OF SYSTEMS: All other systems negative except as noted above. PHYSICAL EXAM: Vitals BP 129/78 Pulse 78 Temp 36.7 ??C (98.1 ??F) Ht 163.8 cm (5' 4.5 ) Wt 89.8 kg (198 lb) BMI 33.46 kg/m?? GENERAL: Alert, NAD, overweight EYES: Sclerae white, EOMI HEENT: Atraumatic, moist mucous membranes. MUSCULOSKELETAL: No Kyphosis HEART: Regular rate and rhythm, Normal S1, S2, No murmurs, rubs or gallops. LUNGS: Clear to auscultation bilaterally. ABDOMEN: Soft, nontender, No HSM. EXTREMITIES: 1+ edema to mid shins SKIN: Intact, no rashes. NEUROLOGIC: Moving all extremities, No focal deficits. LABS: Recent Results (from the past 1008 hour(s)) POCT urinalysis dipstick Collection Time: 03/27/21 9:02 AM Result Value Ref Range Glucose, ur, POC Negative Negative mg/dL Bilirubin, ur, POC Negative Negative, Small, Moderate, Large Ketones, ur, POC Negative Negative Specific [place], POC 1.015 1.005 - 1.030 Blood, ur, POC Negative Negative pH, ur, POC 6.5 5.0 - 8.0 Protein, ur, POC Negative Negative Urobilinogen, urine, POC 0.2 0.2 - 1.0 mg/dL Nitrite, ur, POC Negative Negative Leukocytes, ur, POC Negative Negative Lot Number [id number] IMAGING: Complete Renal Ultrasound 12/15/20 EXAMINATION: COMPLETE [...] chronic kidney disease (HCC) - POCT urinalysis dipstick; Standing - POCT urinalysis dipstick Essential hypertension DERICK (renal osteodystrophy) Stage 3 chronic kidney disease, unspecified whether stage 3a or 3b CKD (HCC) - Ambulatory referral to Nephrology 1.CKD, stage 3B: The patient has no clear reason for a decrease in renal function except prior HTN.Her Creatinine Clearance was 52 ml/min. Here US is normal. We will get labs today. I do not see a reason to repeat the US. We will monitor renal function again in 4 month. We can consider SGLT2i later. 2. Hypertension: This is under good control. No changes in her regimen. 3. DERICK: Start vitamin D. Check PTH today. DISPOSITION: The patient will follow-up 4 month. documented in this encounter Plan of Treatment Scheduled Procedures Name Priority Associated Diagnoses Date/Ti me COLONOSCOPY Encounter for screening colonoscopy COLONOSCOPY Encounter for screening colonoscopy documented as of this encounter Procedures Procedure Name Priority Date/Time Associated Diagnosis Comments POCT URINALYSIS DIPSTICK Routine 03/27/2021 9:02 AM CDT Stage 3a chronic kidney disease (HCC) documented in this encounter Results * (ABNORMAL) CBC with auto differential (03/27/2021 10:03 AM CDT) WBC 6.9 3.8 - 9.9 K/cumm [facility] Hgb 12.5 11.9 - 15.5 g/dL [facility] Hct 40.2 35.6 - 45.5 % [facility] Plt 293 150 - 400 K/cumm [facility] MPV 10.0 9.1 - 12.3 fL [facility] RBC 4.54 3.90 - 5.20 M/cumm [facility] MCV 88.5 81.3 - 96.4 fL [facility] MCH 27.5 27.1 - 33.3 pg [facility] MCHC 31.1(L) 32.3 - 35.7 g/dL [facility] RDW CV 14.1 11.1 - 14.9 % [facility] RDW SD 45.5 35.7 - 48.1 fL [facility] NRBC abs 0.00 0.00 - 0.01 K/cumm [facility] Blood 03/27/2021 10:0 3 AM CDT 03/27/2021 10:20 AM CDT Narrative [facility] - 03/27/2021 10:31 AM CDT Before next visit Rafael Allred MD LAB BLOOD ORDERABLES Final Re sult Performing Organization Address [facility] [place] [facility] Co de Phone Number [facility] Department [place] [employer] [place] [address] * Albumin Creatinine Ratio, Urine (03/27/2021 10:03 AM CDT) Albumin Ur <12.0 mg/L [facility] Comment: Interpretive Data No reference range established. Current interpretive data was last revised 2018. Creatinine Ur 35.8 mg/dL [facility] Comment: Interpretive Data No reference range established. Current interpretive data was last revised 2018. Albumin Creatinine Ratio, Ur See Comment 1 - 29 mg/g [facility] Comment:Unable to calculate Urine 03/27/2021 10:0 3 AM CDT 03/27/2021 10:20 AM CDT Rafael Allred MD LAB URINE ORDERABLES Final Re sult Performing Organization Address City/[facility]/ZIP Co de Phone Number [facility] [place] [employer] [place] [address] * PTH (03/27/2021 10:03 AM CDT) Pathologist [facility] PTH 63 15 - 65 pg/mL [facility] Blood 03/27/2021 10:0 3 AM CDT 03/27/2021 10:20 AM CDT Narrative [facility] - 03/27/2021 11:42 AM CDT Before next visit us Rafael Allred MD LAB BLOOD ORDERABLES Final Re sult [facility] [place] [address] * (ABNORMAL) Comprehensive metabolic panel (03/27/2021 10:03 AM CDT) Sodium 141 135 - 145 mmol/L [facility] Potassium, pl 4.5 3.3 - 4.9 mmol/L [facility] Chloride 103 97 - 110 mmol/L [facility] CO2 28 22 - 32 mmol/L [facility] Anion gap 10 2 - 15 mmol/L [facility] BUN 23 8 - 25 mg/dL [facility] Creatinine 1.45(H) 0.60 - 1.10 mg/dL [facility] Glucose 96 70 - 199 mg/dL [facility] Comment: Interpretive Data Fasting glucose >/= 126 [...] 2017. Calcium 9.6 8.5 - 10.3 mg/dL [facility] Bilirubin, total 0.3 0.1 - 1.2 mg/dL [facility] Protein, pl 7.3 6.5 - 8.5 g/dL [facility] Albumin 4.3 3.5 - 5.0 g/dL [facility] Alk phos 103 40 - 130 Units/L [facility] ALT 22 7 - 45 Units/L [facility] AST 27 10 - 45 Units/L [facility] Blood 03/27/2021 10:0 3 AM CDT 03/27/2021 10:20 AM CDT Narrative [facility] - 03/27/2021 10:52 AM CDT Before next visit Rafael Allred MD LAB BLOOD ORDERABLES Final Re sult [facility] [place] [address] * POCT urinalysis dipstick (03/27/2021 9:02 AM CDT) Glucose, ur, POC Negative Negative mg/dL Bilirubin, ur, POC Negative Negative, Small, Moderate, Large Ketones, ur, POC Negative Negative Specific [place], POC 1.015 1.005 - 1.030 Blood, ur, POC Negative Negative pH, ur, POC 6.5 5.0 - 8.0 Protein, ur, POC Negative Negative Urobilinogen, urine, POC 0.2 0.2 - 1.0 mg/dL Nitrite, ur, POC Negative Negative Leukocytes, ur, POC Negative Negative Lot Number [id number] Urine 03/27/2021 9:02 AM CDT Rafael Allred MD POINT OF CARE TEST ORDERABLES Final Result documented in this encounter Visit Diagnoses Diagnosis Stage 3a chronic kidney disease (HCC)- Primary Essential hypertension Unspecified essential hypertension DERICK (renal osteodystrophy) Renal osteodystrophy Stage 3 chronic kidney disease, unspecified whether stage 3a or 3b CKD (HCC) Stage 3a chronic kidney disease (HCC) DERICK (renal osteodystrophy) Renal osteodystrophy documented in this encounter Orders Outpatient Referral Count Last Ordered Date Fir st Ordered Date AMB REFERRAL TO NEPHROLOGY 1 03/27/2021 documented in this encounter Care Teams Weight Inspector Relationship Specialty Start Date End Date Bull Taveras MD [address] [facility] [address] [place] [address] PCP - General Internal Medicine 08/24/20 documented as of this encounter
--- OUTSIDE RECORDS SUMMARY | 2024-07-14 22:35 | XMS_ITS | Encounter Summary ---
Author Organization [facility] Address [address] [place] [address] Phone Care Team Providers Care Rn Military Name Role Phone Bull Taveras MD Primary Care Provider [phone] Encounter Details Date Type Department Care Team (Late st Contact Info) Description 07/24/[address] [facility] Nephrology [address] [facility] 5th [place] [address] [place] [address] Rafael Allred MD [address] [facility] [address] [place], [place] [id number] Stage 3a chronic kidney disease (HCC) (Primary Dx); Essential hypertension Social History Tobacco Use Types Packs/Day Years Used Date Smoking Tobacco: Former Cigarettes Q uit: 12/13/2019 Smokeless Tobacco: Never Comments Unknown Sex and Gender Information Value Date Recorded Sex Assigned at Not on file Legal Sex Female 6:46 AM GROUNDS CLEANER Gender Identity Not on file Sexual Orientation Straight 03/05/2021 1: 44 PM CDT documented as of this encounter Miscellaneous Notes * Addendum Note - Keely Hunter. - 07/24/2021 11:18 AM CSTAddended by: KEELY HUNTER on: 07/26/2021 02:42 PM Modules accepted: Orders NDS CLEANER documented in this encounter Plan of Treatment Scheduled Procedures Name Priority Associated Diagnoses Date/Ti ks COLONOSCOPY Encounter for screening colonoscopy COLONOSCOPY Encounter for screening colonoscopy documented as of this encounter Results * (ABNORMAL) CBC with auto differential (07/26/2021 2:43 PM GROUNDS CLEANER) WBC 6.7 3.8 - 9.9 K/cumm [facility] [...] K/cumm [facility] Blood 07/26/2021 2:43 PM GROUNDS CLEANER 07/26/2021 5:53 PM GROUNDS CLEANER Rafael Allred MD LAB BLOOD ORDERABLES Final Re sult [facility] [address] [address] Department [place] [address] * (ABNORMAL) Renal function panel (07/26/2021 2:43 PM GROUNDS CLEANER) Sodium 141 135 - 145 mmol/L [facility] Potassium, pl 4.3 3.3 - 4.9 mmol/L [facility] Chloride 103 97 - 110 mmol/L [facility] CO2 24 22 - 32 mmol/L [facility] Anion gap 14 2 - 15 mmol/L [facility] BUN 23 8 - 25 mg/dL [facility] Creatinine 1.57(H) 0.60 - 1.10 mg/dL [facility] Glucose 89 70 - 199 mg/dL [facility] Comment: Interpretive Data Fasting glucose >/= [...] 2017. Calcium 9.4 8.5 - 10.3 mg/dL [facility] Phosphorus, pl 3.8 2.3 - 4.5 mg/dL [facility] Albumin 4.4 3.5 - 5.0 g/dL [facility] Blood 07/26/2021 2:43 PM GROUNDS CLEANER 07/26/2021 5:53 PM GROUNDS CLEANER us Rafael Allred MD LAB BLOOD ORDERABLES Final Re sult [facility] [address] Department [place] [address] documented in this encounter Visit Diagnoses Diagnosis Stage 3a chronic kidney disease (HCC)- Primary Essential hypertension Unspecified essential hypertension documented in this encounter Care Teams Rn Military Relationship Specialty [place] [address] [place] [address] [address] [place] [address] PCP - General Internal Medicine 08/24/20 documented as of this encounter
--- OUTSIDE RECORDS SUMMARY | 2024-07-14 22:35 | XMS_ITS | Encounter Summary ---
Author Organization [facility] Address [address] [place] [address] Care Team Providers Care Computer Numeric Control Setter Name Role Phone Bull Taveras MD Primary Care Provider [phone] Reason for Referral * Consultation (Routine) - Closed Specialty Diagnoses / Procedures Referred By Contac t Referred To Contact Cardiology Diagnoses Atrial fibrillation, unspecified type (HCC) Bull Taveras MD [address] [address] Phone: tel: fax: [facility] (All Locations) Referral ID Status Reason Start Date Expiration Date V isits Requested Visits Authorized [id number] Closed Specialty Services Required 08/28/2021 09/27/2022 1 1 Question Answer Please select the performing region: [facility] (All Locations) [167] # of visits: 1 Comments New onset afib ICAL SOCIOLOGIST Encounter Details Date Type Department Care Team (Late st Contact Info) Description 08/28/2021 Orders Only [facility] [address] [facility] [address] [place] [facility] [place] [address] Bull Taveras MD [address] [facility] [address] [place] [address] Atrial fibrillation, unspecified type (HCC) (Primary Dx) Social History Tobacco Use Types Packs/Day Years Used Date Smoking Tobacco: Former Cigarettes Q uit: 12/13/2019 Smokeless Tobacco: Never Comments Unknown Sex and Gender Information Value Date Recorded Sex Assigned at Not on file Legal Sex Female 6:46 AM CLINICAL SOCIOLOGIST Gender Identity Not on file Sexual Orientation Straight 03/05/2021 1: 44 PM CDT documented as of this encounter Progress Notes * Lisa Cortés MA - 08/28/2021 4:01 PM CST amb ICAL SOCIOLOGIST documented in this encounter Plan of Treatment Scheduled Procedures Name Priority Associated Diagnoses Date/Ti me COLONOSCOPY Encounter for screening colonoscopy COLONOSCOPY Encounter for screening colonoscopy Scheduled Referrals Name Type Priority Associated Diagnoses Orde r Schedule Ambulatory referral to Cardiology Outpatient Referral Routine Atrial fibrillation, unspecified type (HCC) Expected: 09/11/2021 (Approximate), Expires: 08/28/2022 documented as of this encounter Visit Diagnoses Diagnosis Atrial fibrillation, unspecified type (HCC)- Primary documented in this encounter Care Teams Computer Numeric Control Setter Relationship Specialty Start Date End Date Bull Taveras MD [address] [address] PCP - General Internal Medicine 08/24/20 documented as of this encounter
--- OUTSIDE RECORDS SUMMARY | 2024-07-14 22:36 | XMS_ITS | Encounter Summary ---
Author Organization [facility] Address [address] [place] [address] Care Team Providers Care Separator Operator Name Role Phone Bull Taveras MD Primary Care Provider [phone] Reason for Referral * Diagnostic Imaging (Routine) - Closed Specialty Diagnoses / Procedures Referred By Contac t Referred To Contact Diagnoses Essential hypertension Stage 3a chronic kidney disease (HCC) Procedures US Kidney Complete US Renal Limited Bull Taveras MD [address] [facility] [address] [place] [address] Phone: tel: fax: [address] [address] Referral ID Status Reason Start Date Expiration Date Visits Re quested Visits Authorized [id number] Closed 11/22/2020 12/22/2021 1 1 * Diagnostic Imaging (Routine) - Closed Specialty Diagnoses / Procedures Referred By Contac t Referred To Contact Procedures Screening Mammogram [address] [place] [address] [facility] [address] [facility] [address] [place] [address] Phone: tel: fax: Referral ID Status Reason Start Date Expiration Date Visits Re quested Visits Authorized [id number] Closed 11/22/2020 12/22/2021 1 1 Reason for Visit * Reason Comments Hypertension Pain joint pain with swel ling Encounter Details Date Type Department Care Team (Late st Contact Info) Description 11/22/2020 8:00 AM CDT Office Visit [facility] [address] [facility] [address] [place] [address] Bull Taveras MD [address] [facility] [address] [place] [address] Encounter for screening colonoscopy (Primary Dx); Polyarthritis; Essential hypertension; Stage 3a chronic kidney disease Social History Tobacco Use Types Packs/Day Years Used Date Smoking Tobacco: Never Comments Unknown Sex and Gender Information Value Date Recorded Sex Assigned at Not on file 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 Gender Identity Not on file Sexual Orientation Straight 03/05/2021 1: 44 PM CDT documented as of this encounter Last Filed Vital Signs Vital Sign Reading Time Taken Comments Blood Pressure 135/68 11/22/2020 8:06 AM CDT Pulse 74 11/22/2020 8:06 AM CDT Temperature - - Respiratory Rate - - Oxygen Saturation - - Inhaled Oxygen Concentration - - Weight 89.4 kg (197 lb) 11/22/2020 8:06 AM CDT Height 165.1 cm (5' 5 ) 11/22/2020 8:06 AM CDT Body Mass Index 32.78 11/22/2020 8:06 AM CDT documented in this encounter Progress Notes * Bull Taveras MD - 11/22/2020 8:00 AM CDT Images from the original note were not included. Subjective/Objective Patient ID: Lisa Scott is a 65 y.o. female. Chief Complaint Hypertension and Pain (joint pain with swelling) HPI Patient here today for evaluation of her medical problems. ?? She is been evaluated and treated by leg breaker over the last year for connective tissue disease. She has been on steroids and Plaquenil. In the interim she has gained 50 lb in her blood pressurehas begun to go up. She denies any chest pain denies any shortness of breath but has had some lowerextremity swelling. Has had no other symptomatology other than joint pain Continues to have migratory joint pain. She has bilateral hand swelling, with gelling phenomenon. Has never been on any other LAURIE other than plaquenil. Has been unable to take nsaids due to CKD. Past Surgical History: Procedure Laterality Date ??? REPAIR KNEE LIGAMENT Family History Problem Relation Age of Onset ??? Diabetes Mother ??? Asthma Mother ??? COPD Mother ??? Atrial fibrillation Mother ??? Hyperlipidemia Mother ??? COPD Father Social History Tobacco Use ??? Smoking status: Never Smoker Substance Use Topics ??? Alcohol use: Not on file ??? Drug use: Yes Types: Alcohol Immunization [...] (six) hours as needed for wheezing ??? calcium carb-D3-mag ox-zinc ox 333 mg-133 unit -133 mg-5 mg tablet Take by mouth daily ??? cetirizine (ZyrTEC) 10 mg tablet Take 10 mg by mouth daily [employer] Brand Allergy ??? cholecalciferol (VITAMIN D-3) 2000 unit capsule 2,000 Units ??? fluticasone propion-salmeteroL (ADVAIR DISKUS) 250-50 mcg/dose diskus inhaler Inhale 1 puff 2 (two) times a day ??? hydrOXYchloroQUINE (PLAQUENIL) 200 mg tablet Take 200 mg by mouth 2 (two) times a day ??? lisinopriL (PRINIVIL,ZESTRIL) 10 mg tablet Take 10 mg by mouth daily ??? magnesium oxide 400 mg magnesium capsule Take 400 mg by mouth daily ??? predniSONE (DELTASONE) 5 mg tablet Take 1 tablet (5 mg) by mouth every other day Review of Systems Constitutional: Negative for appetite [...] past 24 hrs: BP Pulse Height Weight 11/22/20 0806 135/68 74 165.1 cm (5' 5 ) 89.4 kg (197 lb) Wt Readings from Last 3 Encounters: 11/22/20 89.4 kg (197 lb) 10/17/20 88.5 kg (195 lb) Physical Exam Vitals and nursing note [...] pulses. Heart sounds: Normal heart sounds. No murmur. No gallop. Pulmonary: Effort: Pulmonary effort is [...] Diagnoses and all orders for this visit: Encounter for screening colonoscopy (Z12.11) (Primary) - Direct Scheduling Case Request: COLONOSCOPY Polyarthritis (M13.0) Assessment & Plan: Would be concerned about seronegative rheumatoid arthritis. Currently on prednisone every other dayand Plaquenil daily. Will refer to Rheumatology. Obtain old records from her previous leg breaker. Essential hypertension (I10) Assessment & Plan: Blood pressure is at target doing well. Stage 3a chronic kidney disease (N18.31) Assessment & Plan: Will do 24 hour urine for total protein and creatinine clearance. Also do renal ultrasound. Labs No results found for: HGBA1C No results found for: POCCHOL No results found for: POCHDL No results found for: POCLDL No results found for: POCTRIG No results found for: A1C Lab Results Component Value Date CREATININE 1.49 (H) 10/17/2020 Lab Results Component Value Date COLORU Yellow 10/17/2020 GLUCOSEUR Negative 10/17/2020 KETONESU Negative 10/17/2020 Bull Taveras MD documented in this encounter Miscellaneous Notes * Assessment & Plan Note - Bull Taveras MD - 11/22/2020 8:45 AM CDT Associated Problem(s): Stage 3a chronic kidney disease (HCC) Will do 24 hour urine for total protein and creatinine clearance. Also do renal ultrasound. * Assessment & Plan Note - Bull Taveras MD - 11/22/2020 8:45 AM CDT Associated Problem(s): Essential hypertension Blood pressure is at target doing well. * Assessment & Plan Note - Bull Taveras MD - 11/22/2020 8:44 AM CDT Associated Problem(s): Polyarthritis Would be concerned about seronegative rheumatoid arthritis. Currently on prednisone every other dayand Plaquenil daily. Will refer to Rheumatology. Obtain old records from her previous leg breaker. documented in this encounter Plan of Treatment Scheduled Procedures Name Priority Associated Diagnoses Date/Ti me COLONOSCOPY Encounter for screening colonoscopy COLONOSCOPY Encounter for screening colonoscopy documented as of this encounter Procedures Procedure Name Priority Date/Time Associated Diagnosis Comments CREATININE CLEARANCE, URINE, 24 HOUR Routine 12/15/2020 11:50 AM CDT Essential hypertension Stage 3a chronic kidney disease BASIC METABOLIC PANEL Routine 12/15/2020 11:50 AM CDT Essential hypertension Stage 3a chronic kidney disease SCREENING MAMMOGRAM 2D BILATERAL Schedule Routine, Read Routine (OP Routine) 09/05/2020 documented in this encounter Results * (ABNORMAL) Basic metabolic panel (12/15/2020 11:50 AM CDT) Glucose 96 65 - 99 mg/dL [facility] - 01 BUN 24 8 - 27 mg/dL [facility] - 01 Creatinine, Serum 1.43(H) 0.57 - 1.00 mg/dL [facility] - 01 eGFR If NonAfricn Am 38(L) >59 mL/min/1.7 3 [facility] - 01 eGFR If Africn Am 44(L) >59 mL/min/1.7 3 [facility] - 01 Comment: [facility] currently reports eGFR in compliance with the current ??recommendations of the National Kidney Foundation. [facility] will ??update reporting as new guidelines are published from the NKF-ASN ??Task force. BUN/creat ratio 17 12 - 28 [facility] - 01 Sodium 140 134 - 144 mmol/L [facility] - 01 Potassium, sr 4.6 3.5 - 5.2 mmol/L [facility] - 01 Chloride 106 96 - 106 mmol/L [facility] - 01 CO2 23 20 - 29 mmol/L [facility] - 01 Calcium 9.4 8.7 - 10.3 mg/dL [facility] - 01 Blood specimen (specimen) 12/15/2020 11:50 AM CDT 12/15/2020 Narrative [facility] - 12/16/2020 1:07 PM CDT Performed at: ??01 - [facility] ??[id number] [place] Performer: Singh Chavez PhD, Phone: ??[phone] us Bull Taveras MD LAB BLOOD ORDERABLES Final [facility]ult [facility] - * (ABNORMAL) Creatinine clearance, urine, 24 hour (12/15/2020 11:50 AM CDT) Creatinine ur 46.8 Not Estab. mg/dL [facility] - 01 Comment:Total Volume: 2300 m L Creatinine, Ur 24hr 1,076 800 - 1,800 mg/24 hr [facility] - 01 Creatinine Clearance 52(L) 88 - 128 mL/min [facility] - 01 Comment: The above range is based on 1.73 square meter average body surface area. Urine/Blood 12/15/2020 11:5 0 AM CDT 12/15/2020 Narrative [facility] - 12/16/2020 1:07 PM CDT Performed at: ??01 - [address], [place], [place] ??[id number] [place] Performer: Singh Chavez PhD, Phone: ??[phone] us Bull Taveras MD LAB URINE ORDERABLES Final Re sult [facility] - 01 * US Kidney Complete (12/15/2020 8:18 AM CDT) Anatomical Region Laterality Modality Kidney N/A Ultrasound 12/15/2020 9:06 AM CDT Impressions 12/15/2020 9:06 AM CDT Normal kidneys. No hydronephrosis. Electronically signed by: Javier Choudhary M.D. Narrative 12/15/2020 9:06 AM CDT EXAMINATION: COMPLETE RENAL SONOGRAM HISTORY: ??Chronic kidney disease with elevated creatinine COMPARISON: ??None FINDINGS: ?? Kidneys: The echogenicity of both kidneys is normal. The kidneys are normal in size. ??The right kidney measures 9.8 cm in length, and the left, 9.9 cm in length. There is no hydronephrosis in either kidney. There are no renal calculi visualized. Bladder: The urinary bladder is normal Procedure Note Javier Choudhary MD - 12/15/2020 EXAMINATION: COMPLETE RENAL SONOGRAM HISTORY: Chronic kidney disease with elevated creatinine COMPARISON: None FINDINGS: Kidneys: The echogenicity of both kidneys is normal. The kidneys are normal in size. The right kidney measures 9.8 cm in length, and the left, 9.9 cm in length. There is no hydronephrosis in either kidney. There are no renal calculi visualized. Bladder: The urinary bladder is normal IMPRESSION: Normal kidneys. No hydronephrosis. Electronically signed by: Javier Choudhary M.D. Bull Taveras MD IMG US PROCEDURES Final Resul t * Screening Mammogram 2D Bilateral (09/05/2020) Anatomical Region Laterality Modality Breast Bilateral Mammography Narrative 09/05/2020 Pt had 2/23/21 us Historical Provider MD TAM MAMMO PROCEDURES Agatha l Result documented in this encounter Visit Diagnoses Diagnosis Encounter for screening colonoscopy- Primary Polyarthritis Unspecified polyarthropathy or polyarthritis, site unspecified Essential hypertension Unspecified essential hypertension Stage 3a chronic kidney disease (HCC) Essential hypertension Unspecified essential hypertension Stage 3a chronic kidney disease (HCC) documented in this encounter Orders Case Request Count Last Ordered Date First Orde red Date GI DIRECT ACCESS CASE REQUEST 1 11/22/2020 documented in this encounter Care Teams Separator Operator Relationship Specialty Start Date End Date Bull Taveras MD [address] [address] PCP - General Internal Medicine 08/24/20 documented as of this encounter
--- OUTSIDE RECORDS SUMMARY | 2024-07-14 22:36 | XMS_ITS | Encounter Summary ---
Author Organization [facility] Address [address] [place] [address] Care Team Providers Care Environmental Field Team Member Name Role Phone Bull Taveras MD Primary Care Provider Encounter Details Date Type Department Care Team (Late st Contact Info) Description 01/16/2021 Orders Only [facility] [address] 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 Gender Identity Not on file Sexual Orientation Straight 03/05/2021 1: 44 PM CDT documented as of this encounter Plan of Treatment Scheduled Procedures Name Priority Associated Diagnoses Date/Ti me COLONOSCOPY Encounter for screening colonoscopy COLONOSCOPY Encounter for screening colonoscopy documented as of this encounter Procedures Procedure Name Priority Date/Time Associated Diagnosis Comments SCAN - RADIOLOGY/IMAGING 01/16/2021 10:36 AM CDT documented in this encounter Results * SCAN - RADIOLOGY/IMAGING (01/16/2021 10:36 AM CDT) Anatomical Region Laterality Modality Other us Bull Taveras MD Final Result documented in this encounter Visit Diagnoses Not on filedocumented in this encounter Care Teams Environmental Field Team Member Relationship Specialty Start Date End Date Bull Taveras MD [address] [address] PCP - General Internal Medicine 08/24/20 documented as of this encounter
--- OUTSIDE RECORDS SUMMARY | 2024-07-14 22:36 | XMS_ITS | Encounter Summary ---
Author Organization [facility] Address [address] [place] [address] Care Team Providers Care Inspector Metal Can Name Role Phone Sheela Renner MD Primary Care Provider [phone] Bull Taveras MD Primary Care Provider [phone] Encounter Details Date Type Department Care Team (Late st Contact Info) Description 08/22/2020 Orders Only [facility] [address] [facility] [address] [place] [address] Bull Taveras MD [address] [facility] [address] [place] [address] Social History Tobacco Use Types Packs/Day Years Used Date Smoking Tobacco: Never Assessed Comments Unknown Sex and Gender Information Value Date Recorded Sex Assigned at Not on file 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 Gender Identity Not on file Sexual Orientation Straight 03/05/2021 1: 44 PM CDT documented as of this encounter Plan of Treatment Scheduled Procedures Name Priority Associated Diagnoses Date/Ti me COLONOSCOPY Encounter for screening colonoscopy COLONOSCOPY Encounter for screening colonoscopy documented as of this encounter Procedures Procedure Name Priority Date/Time Associated Diagnosis Comments SCAN - RADIOLOGY/IMAGING 08/22/2020 12:45 PM FIBER DESIGNER documented in this encounter Results * SCAN - RADIOLOGY/IMAGING (08/22/2020 12:45 PM FIBER DESIGNER) Anatomical Region Laterality Modality Other Bull Taveras MD Final Result documented in this encounter Visit Diagnoses Not on filedocumented in this encounter Care Teams Inspector Metal Can Relationship Specialty Start Date End Date Sheela Renner MD [address] [place] [address] PCP - General Family Medicine 09/18/19 08/23/20 Bull Taveras MD [address] [address] PCP - General Internal Medicine 08/24/20 documented as of this encounter
--- OUTSIDE RECORDS SUMMARY | 2024-07-14 22:36 | XMS_ITS | Encounter Summary ---
Author Organization [facility] Address [address] [place] [address] Phone Care Team Providers Care Power Digger Operator Name Role Phone Bull Taveras MD Primary Care Provider [phone] Encounter Details Date Type Department Care Team (Late st Contact Info) Description 01/16/2021 Telephone [facility] Pulmonary [address] [facility] Medicine 8th [place] [address] [place] [address] Nahomi Boyce RN Social History Tobacco Use Types Packs/Day Years Used Date Smoking Tobacco: Former Cigarettes Q uit: 12/13/2019 Smokeless Tobacco: Never Comments Unknown Sex and Gender Information Value Date Recorded Sex Assigned at Not on file 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 that her chest CT showed no lung abnormalities, but it did show that she has a goiter,and that she will need a thyroid ultrasound. Pt. stated that she had a biopsy of her thyroid last fall at [facility] in [place], [place]. Stated that she will speak to her PCP about setting up a thyroid U/S. Chest CT report from 01/09/[address] Taveras as requested per pt. (fax#[phone]). documented in this encounter Plan of Treatment Scheduled Procedures Name Priority Associated Diagnoses Date/Ti wi COLONOSCOPY Encounter for screening colonoscopy COLONOSCOPY Encounter for screening colonoscopy documented as of this encounter Visit Diagnoses Not on filedocumented in this encounter Care Teams Power Digger Operator Relationship Specialty Start Date End Date Bull Taveras MD [address] [facility] [address] [place] [address] PCP - General Internal Medicine 08/24/20 documented as of this encounter
--- OUTSIDE RECORDS SUMMARY | 2024-07-14 22:36 | XMS_ITS | Encounter Summary ---
Author Organization [facility] Address [address] [facility] [address] [place] [address] Care Team Providers Care Human Resources Supervisor Name Role Phone Sheela Renner MD Primary Care Provider [phone] Encounter Details Date Type Department Care Team (Late st Contact Info) Description 09/18/2019 Orders Only [facility] Cardiology [address] [place] [address] Nickolas Mcrae MD [facility] [address] Social History Tobacco Use Types Packs/Day Years Used Date Smoking Tobacco: Never Assessed Comments Unknown Sex and Gender Information Value Date Recorded Sex Assigned at Not on file 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 Gender Identity Not on file Sexual Orientation Straight 03/05/2021 1: 44 PM CDT documented as of this encounter Plan of Treatment Scheduled Procedures Name Priority Associated Diagnoses Date/Ti me COLONOSCOPY Encounter for screening colonoscopy COLONOSCOPY Encounter for screening colonoscopy documented as of this encounter Procedures Procedure Name Priority Date/Time Associated Diagnosis Comments CARDIOLOGY DOCUMENT SCAN Routine 09/18/2019 documented in this encounter Results * SCAN - CARDIOLOGY (09/18/2019) Anatomical Region Laterality Modality Other Nickolas Mcrae MD [facility] PROC EDURES Final Result documented in this encounter Visit Diagnoses Not on filedocumented in this encounter Care Teams Human Resources Supervisor Relationship Specialty Start Date End Date Sheela Renner MD [address] [place] [address] PCP - General Family Medicine 09/18/19 08/23/20 documented as of this encounter
--- OUTSIDE RECORDS SUMMARY | 2024-07-14 22:36 | XMS_ITS | Encounter Summary ---
Author Organization [facility] Address [address] [place] [address] Care Team Providers Care Manager Visual Name Role Phone Bull Taveras MD Primary Care Provider [phone] Reason for Referral * Consultation (Routine) - Closed Specialty Diagnoses / Procedures Referred By Contac t Referred To Contact Nephrology Diagnoses Stage 3 chronic kidney disease, unspecified whether stage 3a or 3b CKD (HCC) Bull Taveras MD [address] [address] Phone: tel: fax: [facility] (All Locations) Referral ID Status Reason Start Date Expiration Date V isits Requested Visits Authorized [id number] Closed Specialty Services Required 03/27/2021 10/26/2021 20 20 Question Answer Please select the performing region: [facility] (All Locations) [167] # of visits: 20 Encounter Details Date Type Department Care Team (Late st Contact Info) Description 12/19/2020 [facility] [address] [facility] [address] [place] [facility] [place] [address] Bull Taveras MD [address] [facility] [address] [place] [address] Social History Tobacco Use Types Packs/Day Years Used Date Smoking Tobacco: Never Comments Unknown Sex and Gender Information Value Date Recorded Sex Assigned at Not on file 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 Gender Identity Not on file Sexual Orientation Straight 03/05/2021 1: 44 PM CDT documented as of this encounter Miscellaneous Notes * Telephone Encounter - Tangela Freeman MA - 12/19/2020 11:43 AM CDT Patient aware Referral to renal entered * Telephone Encounter - Tangela Freeman MA - 12/19/2020 11:43 AM CDT ----- Message from Bull Taveras MD sent at 12/19/2020 9:38 AM CDT ----- Has ckd3, refer to renal * Telephone Encounter - Tangela Freeman MA - 12/19/2020 11:38 AM CDT ----- Message from Bull Taveras MD sent at 12/19/2020 9:38 AM CDT ----- Normal kidneys documented in this encounter Plan of Treatment Scheduled Procedures Name Priority Associated Diagnoses Date/Ti az COLONOSCOPY Encounter for screening colonoscopy COLONOSCOPY Encounter for screening colonoscopy Scheduled Referrals Name Type Priority Associated Diagnoses Orde r Schedule Ambulatory referral to Nephrology Outpatient Referral Routine Stage 3 chronic kidney disease, unspecified whether stage 3a or 3b CKD Expected: 01/02/2021 (Approximate), Expires: 12/19/2021 documented as of this encounter Visit Diagnoses Diagnosis Stage 3 chronic kidney disease, unspecified whether stage 3a or 3b CKD (HCC)- Primary documented in this encounter Care Teams Manager Visual Relationship Specialty Start Date End Date Bull Taveras MD [address] [facility] [address] [place] [address] PCP - General Internal Medicine 08/24/20 documented as of this encounter
--- OUTSIDE RECORDS SUMMARY | 2024-07-14 22:36 | XMS_ITS | Encounter Summary ---
Author Organization [facility] Address [address] [place] [address] Care Team Providers Care Oxidized Finish Plater Name Role Phone Bull Taveras MD Primary Care Provider [phone] Encounter Details Date Type Department Care Team (Late st Contact Info) Description 09/05/2020 Orders Only [facility] [address] [facility] [address] [place] [address] Scanning, Provider Social History Tobacco Use Types Packs/Day Years Used Date Smoking Tobacco: Never Assessed Comments Unknown Sex and Gender Information Value Date Recorded Sex Assigned at Not on file 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 Gender Identity Not on file Sexual Orientation Straight 03/05/2021 1: 44 PM CDT documented as of this encounter Plan of Treatment Scheduled Procedures Name Priority Associated Diagnoses Date/Ti me COLONOSCOPY Encounter for screening colonoscopy COLONOSCOPY Encounter for screening colonoscopy documented as of this encounter Procedures Procedure Name Priority Date/Time Associated Diagnosis Comments SCAN - RADIOLOGY/IMAGING 09/05/2020 7:55 AM SECURITIES SALES ASSOCIATE documented in this encounter Results * SCAN - RADIOLOGY/IMAGING (09/05/2020 7:55 AM SECURITIES SALES ASSOCIATE) Anatomical Region Laterality Modality Other us Provider Scanning Final Result documented in this encounter Visit Diagnoses Not on filedocumented in this encounter Care Teams Oxidized Finish Plater Relationship Specialty Start Date End Date Bull Taveras MD [address] [facility] [address] [place] [address] PCP - General Internal Medicine 08/24/20 documented as of this encounter
--- OUTSIDE RECORDS SUMMARY | 2024-07-14 22:36 | XMS_ITS | Encounter Summary ---
Author Organization [facility] Address [address] [place] [address] Phone Care Team Providers Care Comb Capper Name Role Phone Bull Taveras MD Primary Care Provider [phone] Reason for Referral * (Routine) - Closed Specialty Diagnoses / Procedures Referred By Grecia paulino Referred To Contact Diagnoses Shortness of breath Procedures Pulmonary Function Test -[facility]FT [facility]- CAM-8D; Standard; Spirometry, Spirometry w/bronchodilator, DLCO and Lung Volumes Bull Taveras MD [address] [address] Phone: tel: fax: Referral ID Status Reason Start Date Expiration Date Visits Re quested Visits Authorized [id number] Closed 12/01/2020 12/31/2021 1 1 Reason for Visit * (Routine) - Closed Specialty Diagnoses / Procedures Referred By Contac t Referred To Contact Diagnoses Shortness of breath Procedures Pulmonary Function Test -[facility]- CAM-8D; Standard; Spirometry, Spirometry w/bronchodilator, DLCO and Lung Volumes Bull Taveras MD [address] [address] Phone: tel: fax: Referral ID Status Reason Start Date Expiration Date Visits Re quested Visits Authorized [id number] Closed 12/01/2020 12/31/2021 1 1 Encounter Details Date Type Department Care Team (Latest Contact Info) Description 12/07/2020 8:44 AM CDT - 12/07/2020 11:59 PM CDT Hospital Encounter [facility] [address] [facility] [address] [place] [id number] Shortness of breath Discharge Disposition: Discharge to home or self care Social History Tobacco Use Types Packs/Day Years Used Date Smoking Tobacco: Never Comments Unknown Sex and Gender Information Value Date Recorded Sex Assigned at Not on file 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 Gender Identity Not on file Sexual Orientation Straight 03/05/2021 1: 44 PM CDT documented as of this encounter Medications at Time of Discharge cetirizine (ZyrTEC) 10 mg tablet Take 1 tablet (10 mg total) by mouth daily [facility] Allergy amoxicillin-clav ulanate (AUGMENTIN) 875-125 mg per tablet Take 1 tablet by mouth 2 (two) times a day for 10 days 20 tablet 12/01/2020 12/11/2020 acetaminophen (TYLENOL) 500 mg tablet Take 500 mg by mouth every 6 (six) hours as needed for pain 01/10/2022 albuterol (PROAIR RESPICLICK) 90 mcg/actuation inhaler Inhale 2 puffs every 6 (six) hours as needed for wheezing 1 Inhaler 11 07/18/2020 11/20/2021 calcium carb-D3-mag ox-zinc ox 333 mg-133 unit -133 mg-5 mg tablet Take by mouth daily 08/07/2021 cholecalciferol (VITAMIN D-3) 2000 unit capsule 2,000 Units 03/09/2021 fluticasone propion-salmeter oL (ADVAIR DISKUS) 250-50 mcg/dose diskus inhaler Inhale 1 puff 2 (two) times a day 60 each 11 10/27/2020 12/26/2020 hydrOXYchloroQUI NE (PLAQUENIL) 200 mg tabletIndication s:Rheumatoid Arthritis Take 200 mg by mouth 2 (two) times a day 04/03/2021 lisinopriL (PRINIVIL,ZESTRI L) 10 mg tablet Take 10 mg by mouth daily 03/20/2021 magnesium oxide 400 mg magnesium capsule Take 400 mg by mouth daily 08/07/2021 predniSONE (DELTASONE) 5 mg tablet Take 1 tablet (5 mg) by mouth every other day 30 tablet 1 10/27/2020 02/07/2021 documented as of this encounter Discharge Disposition Disposition Code Departure Means Destination Discharge to home or self care documented in this encounter Plan of Treatment Scheduled Procedures Name Priority Associated Diagnoses Date/Ti me COLONOSCOPY Encounter for screening colonoscopy COLONOSCOPY Encounter for screening colonoscopy documented as of this encounter Procedures Procedure Name Priority Date/Time Associated Diagnosis Comments PULMONARY FUNCTION TEST (PFT) Routine 12/07/2020 9:36 AM CDT Shortness of breath documented in this encounter Results * Pulmonary Function Test - (12/07/2020 9:36 AM CDT) FVC PRE 2.25 L [facility] FVC %PRE PRED 81 % [facility] FVC POST 2.43 L [facility] FVC %POST PRED 87 % [facility] FEV1 PRE 1.08 L [facility] FEV1 %PRE PRED 49 % [facility] FEV1 POST 1.25 L [facility] FEV1 %POST PRED 57 % [facility] FEV1/FVC PRE 48.3 % [facility] FEV1/FVC POST 51.6 % [facility] FRC PL PRE 4.31 L [facility] FRC PL %PRE PRED 147 % [facility] RV PRE 3.78 L [facility] RV %PRE PRED 175 % [facility] TLC PRE 6.05 L [facility] TLC %PRE PRED 117 % [facility] DLCO PRE 14.1 ml/min/mmH g [facility] DLCO %PRE PRED 70 % [facility] Anatomical Region Laterality Modality PFT 12/07/2020 8:52 AM CDT Narrative 12/08/2020 4:58 PM CDT SEE PDF PFT performed at:->[facility] Adult PFT Lab- CAM-8D Procedure:->Standard Standard:->Spirometry, Spirometry w/bronchodilator, DLCO and Lung Volumes us Bull Taveras MD PFT ORDERABLES Final Result documented in this encounter Visit Diagnoses Diagnosis Shortness of breath documented in this encounter Care Teams Comb Capper Relationship Specialty Start Date End Date Bull Taveras MD [address] [facility] [address] [place] [address] PCP - General Internal Medicine 08/24/20 documented as of this encounter
--- OUTSIDE RECORDS SUMMARY | 2024-07-14 22:36 | XMS_ITS | Encounter Summary ---
Author Organization [facility] Address [address] [place] [address] Care Team Providers Care Salon Assistant Name Role Phone Bull Taveras MD Primary Care Provider [phone] Reason for Referral * (Routine) - Closed Specialty Diagnoses / Procedures Referred By Contac t Referred To Contact Diagnoses Shortness of breath Procedures Pulmonary Function Test -[facility] Adult PFT Lab- CAM-8D; Standard; Spirometry, Spirometry w/bronchodilator, DLCO and Lung Volumes Bull Taveras MD [address] [address] Phone: tel: fax: Referral ID Status Reason Start Date Expiration Date Visits Re quested Visits Authorized [id number] Closed 12/01/2020 12/31/2021 1 1 Encounter Details Date Type Department Care Team (Late st Contact Info) Description 12/01/2020 Orders Only [facility] [address] [facility] [address] [facility] [place] [address] Bull Taveras MD [address] [facility] [address] [place] [address] Shortness of breath (Primary Dx) Social History Tobacco Use Types Packs/Day Years Used Date Smoking Tobacco: Never Comments Unknown Sex and Gender Information Value Date Recorded Sex Assigned at Not on file 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 Gender Identity Not on file Sexual Orientation Straight 03/05/2021 1: 44 PM CDT documented as of this encounter Plan of Treatment Scheduled Procedures Name Priority Associated Diagnoses Date/Ti me COLONOSCOPY Encounter for screening colonoscopy COLONOSCOPY Encounter for screening colonoscopy documented as of this encounter Results * Pulmonary Function Test - (12/07/2020 9:36 AM CDT) [facility] FVC PRE 2.25 L [facility] FVC %PRE PRED 81 % [facility] FVC POST 2.43 L [facility] FVC %POST PRED 87 % [facility] FEV1 PRE 1.08 L [facility] FEV1 %PRE PRED 49 % [facility] FEV1 POST 1.25 L [facility] FEV1 %POST PRED 57 % [facility] FEV1/FVC PRE 48.3 % [facility] FEV1/FVC POST 51.6 % [facility] FRC PL PRE 4.31 L [facility] FRC PL %PRE PRED 147 % [facility] RV PRE 3.78 L [facility] RV %PRE PRED 175 % [facility] TLC PRE 6.05 L [facility] TLC %PRE PRED 117 % [facility] DLCO PRE 14.1 ml/min/mmH g [facility] DLCO %PRE PRED 70 % [facility] Anatomical Region Laterality Modality PFT 12/07/2020 8:52 AM CDT Narrative 12/08/2020 4:58 PM CDT SEE PDF PFT performed at:->[facility] Adult PFT Lab- CAM-8D Procedure:->Standard Standard:->Spirometry, Spirometry w/bronchodilator, DLCO and Lung Volumes us Bull Taveras MD PFT ORDERABLES Final Result documented in this encounter Visit Diagnoses Diagnosis Shortness of breath- Primary Shortness of breath documented in this encounter Care Teams Salon Assistant Relationship Specialty Start Date End Date Bull Taveras MD [address] [facility] [address] [place] [address] PCP - General Internal Medicine 08/24/20 documented as of this encounter
--- OUTSIDE RECORDS SUMMARY | 2024-07-14 22:36 | XMS_ITS | Encounter Summary ---
Author Organization [facility] Address [address] [place] [address] Care Team Providers Care Entry Driver Operator Name Role Phone Bull Taveras MD Primary Care Provider [phone] Reason for Visit * Reason Comments Foot Swelling Encounter Details Date Type Department Care Team (Late st Contact Info) Description 10/17/2020 1:15 PM CDT Office Visit [facility] [address] [facility] [address] [facility] [place] [address] Bull Taveras MD [address] [facility] [address] [place] [address] Essential hypertension (Primary Dx); Polyarthritis; Thyroid nodule; Hyperglycemia Social History Tobacco Use Types Packs/Day Years Used Date Smoking Tobacco: Never Assessed Comments Unknown Sex and Gender Information Value Date Recorded Sex Assigned at Not on file 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 Gender Identity Not on file Sexual Orientation Straight 03/05/2021 1: 44 PM CDT documented as of this encounter Last Filed Vital Signs Vital Sign Reading Time Taken Comments Blood Pressure 130/81 10/17/2020 1:36 PM CDT Pulse 88 10/17/2020 1:36 PM CDT Temperature - - Respiratory Rate - - Oxygen Saturation - - Inhaled Oxygen Concentration - - Weight 88.5 kg (195 lb) 10/17/2020 1:36 PM CDT Height 165.1 cm (5' 5 ) 10/17/2020 1:36 PM CDT Body Mass Index 32.45 10/17/2020 1:36 PM CDT documented in this encounter Progress Notes * Bull Taveras MD - 10/17/2020 1:15 PM CDT Images from the original note were not included. Subjective/Objective Patient ID: Lisa Scott is a 65 y.o. female. Chief Complaint Foot Swelling HPI Patient here today for evaluation of her medical problems. She is been evaluated and treated by [facility] over the last year for connective tissue disease. She has been on steroids and Plaquenil. In the interim she has gained 50 lb in her blood pressurehas begun to go up. She denies any chest pain denies any shortness of breath but has had some lowerextremity swelling. Has had no other symptomatology other than joint pain History reviewed. No pertinent surgical history. History reviewed. No pertinent family history. Social History Tobacco Use ??? Smoking status: Not on file Substance Use Topics ??? Alcohol use: Not on file ??? Drug use: Not on file There is no immunization history on file for this patient. Current Outpatient Medications Medication Sig ??? acetaminophen [...] 1 puff 2 (two) times a day Rinse mouth with water after use. Do not swallow. Patient is unsure of exact dosage. ??? hydrOXYchloroQUINE (PLAQUENIL) 200 mg tablet Take 200 mg by mouth 2 (two) times a day ??? lisinopriL (PRINIVIL,ZESTRIL) 10 mg tablet Take 10 mg by mouth daily ??? magnesium oxide 400 mg magnesium capsule Take 400 mg by mouth daily ??? predniSONE (DELTASONE) 5 mg tablet Take 5 mg by mouth every other day Review of [...] past 24 hrs: BP Pulse Height Weight 10/17/20 1336 130/81 88 165.1 cm (5' 5 ) 88.5 kg (195 lb) Wt Readings from Last 3 Encounters: 10/17/20 88.5 kg (195 lb) Physical Exam [...] Cervical back: No rigidity. Right lower leg: Edema present. Left lower leg: Edema present. Comments: Edema is trace. There is no cord or Krishna sign bilaterally. Lymphadenopathy: Cervical: No cervical adenopathy. Skin: General: [...] this visit: Essential hypertension (I10) (Primary) Comments: Check urinalysis and CMP. May need to augment antihypertensives Polyarthritis (M13.0) Comments: Will re-screening rheumatologic studies Thyroid nodule (E04.1) Comments: Will need follow-up ultrasound in February Other orders - POCT lipid panel - POCT glucose Labs No results found for: HGBA1C No results found for: POCCHOL No results found for: POCHDL No results found for: POCLDL No results found for: POCTRIG No results found for: A1C No results found for: CREATININE No results found for: COLORU, CLARITYU, GLUCOSEUR, BILIRUBINUR, KETONESU, SPECGRAVU, BLOODUR, SUSSY, PROTUR, UROBILINOGEN, POCURNITRITE, LEUKOCYTESU, LOTNUMBER Bull Taveras MD documented in this encounter Plan of Treatment Scheduled Procedures Name Priority Associated Diagnoses Date/Ti me COLONOSCOPY Encounter for screening colonoscopy COLONOSCOPY Encounter for screening colonoscopy documented as of this encounter Procedures Procedure Name Priority Date/Time Associated Diagnosis Comments MICROSCOPIC EXAMINATION Routine 10/17/2020 2:37 PM CDT CCP ANTIBODIES IGG/IGA Routine 2:37 PM CDT Essential hypertension Polyarthritis Thyroid nodule URINALYSIS AND REFLEX TO MICROSCOPIC AND CULTURE Routine 10/17/2020 2:37 PM CDT Essential hypertension Polyarthritis Thyroid nodule CBC WITH AUTO DIFFERENTIAL Routine 10/17/2020 2:37 PM CDT Essential hypertension Polyarthritis Thyroid nodule MARIO REFLEX TO QUANTITATIVE Routine 10/17/2020 2:37 PM CDT Essential hypertension Polyarthritis Thyroid nodule ERYTHROCYTE SEDIMENTATION RATE Routine 10/17/2020 2:37 PM CDT Essential hypertension Polyarthritis Thyroid nodule RHEUMATOID FACTOR Routine 10/17/2020 2:3 7 PM CDT Essential hypertension Polyarthritis Thyroid nodule CRP (ACUTE PHASE) Routine 10/17/2020 2:3 7 PM CDT Essential hypertension Polyarthritis Thyroid nodule TSH Routine 10/17/2020 2:37 PM CDT Essential hypertension Polyarthritis Thyroid nodule COMPREHENSIVE METABOLIC PANEL Routine 10/17/2020 2:37 PM CDT Essential hypertension Polyarthritis Thyroid nodule documented in this encounter Results * (ABNORMAL) Microscopic Examination (10/17/2020 2:37 PM CDT) WBC, ur 0-5 0 - 5 /hpf [facility] - 01 RBC, ur 0-2 0 - 2 /hpf [facility] - 01 Epithelial cells, non-renal, ur None seen 0 - 10 /hpf [facility] - 01 Casts Present(A) None seen /lpf [facility] - 01 Cast Type Hyaline casts N/A [facility] - 01 Mucous Threads Present Not Estab. [facility] - 01 Bacteria, ur Few None seen/Few [facility] - 01 10/17/2020 2:37 PM CDT 10/17/2020 Narrative [facility] - 10/20/2020 12:06 AM CDT Performed at: ??01 - [address] ??[id number] Tire Finisher: Singh Chavez PhD, Phone: ??[phone] Bull Taveras MD LAB BLOOD ORDERABLES Final Re sult Performing Organization Address [facility] de Phone Number [facility] - * MARIO reflex to quantitative (10/17/2020 2:37 PM CDT) Pathologist [facility] MARIO, direct Negative Negative [facility] - 01 Blood specimen (specimen) 10/17/2020 2:37 PM CDT 10/17/2020 Narrative [facility] - 10/20/2020 12:06 AM CDT Performed at: ??01 - [address] ??[id number] Tire Finisher: Singh Chavez PhD, Phone: ??[phone] Bull Taveras MD LAB BLOOD ORDERABLES Final Re sult Performing Organization Address [facility] de Phone Number [facility] - * CCP Antibodies IgG/IgA (10/17/2020 2:37 PM CDT) Pathologist [facility] CCP Antibodies IgG/IgA 5 0 - 19 units [facility] 02 Comment: ?Negative ? <20 ?Weak positive ?20 - 39 ?Moderate positive ??40 - 59 ?Strong positive ?>59 Blood specimen (specimen) 10/17/2020 2:37 PM CDT 10/17/2020 Narrative [facility] - 10/20/2020 12:06 AM CDT Performed at: ??02 - [facility] ??[id number] Tire Finisher: Mya Carreno MD, Phone: ??[phone] us Bull Taveras MD LAB BLOOD ORDERABLES Final Re sult [facility] 02 * Urinalysis reflex to microscopic and culture Urine (10/17/2020 2:37 PM CDT) Specific Coats 1.021 1.005 - 1.030 [facility] - 01 pH, [...] microscopic exam Comment [facility] - 01 Comment:Microscopic follows if indicated. Urinalysis, microscopic exam See below: [facility] - 01 Comment:Microscopic was evaristo cated and was performed. Urinalysis Comment [facility] - 01 Comment:This specimen will n ot reflex to a Urine Culture. Urine 10/17/2020 2:37 PM CDT 10/17/2020 Narrative [facility] - 10/20/2020 12:06 AM CDT Performed at: ??01 - [facility] ??[id number] Tire Finisher: Singh Chavez PhD, Phone: ??[phone] Bull Taveras MD LAB MICROBIOLOGY - GENERAL OR DERABLES Final Result Performing Organization Address [facility] Co de Phone Number [facility] * TSH (10/17/2020 2:37 PM CDT) Pathologist [facility] TSH 0.478 0.450 - 4.500 uIU/mL [facility] - 01 Blood specimen (specimen) 10/17/2020 2:37 PM CDT 10/17/2020 Narrative [facility] - 10/20/2020 12:06 AM CDT Performed at: ?? - [address] ??[id number] Tire Finisher: Singh Chavez PhD, Phone: ??[phone] Bull Taveras MD LAB BLOOD ORDERABLES Final Re sult Performing Organization Address [facility] Co de Phone Number [facility] * (ABNORMAL) Comprehensive metabolic panel (10/17/2020 2:37 PM CDT) Pathologist [facility] Glucose 96 65 - 99 mg/dL [facility] - 01 BUN 24 8 - 27 mg/dL [facility] - 01 Creatinine, Serum 1.49(H) 0.57 - 1.00 mg/dL [facility] - 01 eGFR If NonAfricn Am 36(L) >59 mL/min/1.7 3 [facility] - 01 eGFR If Africn Am 42(L) >59 mL/min/1.7 3 [facility] - 01 BUN/creat ratio 16 12 - 28 [facility] - 01 Sodium 140 134 - 144 mmol/L [facility] - 01 Potassium, sr 5.0 3.5 - 5.2 mmol/L [facility] - 01 Chloride 102 96 - 106 mmol/L [facility] - 01 CO2 23 20 - 29 mmol/L [facility] - 01 Calcium 10.0 8.7 - 10.3 mg/dL [facility] - 01 Protein, sr 7.0 6.0 - 8.5 g/dL [facility] - 01 Albumin 4.3 3.8 - 4.8 g/dL [facility] - 01 Globulin, Total 2.7 1.5 - 4.5 g/dL [facility] - 01 A/G Ratio 1.6 1.2 - 2.2 [facility] - 01 Bilirubin, Total 0.3 0.0 - 1.2 mg/dL [facility] - 01 Alk phos 114 39 - 117 IU/L [facility] - 01 AST 32 0 - 40 IU/L [facility] - 01 ALT 44(H) 0 - 32 IU/L [facility] - 01 Blood specimen (specimen) 10/17/2020 2:37 PM CDT 10/17/2020 Narrative [facility] - 10/20/2020 12:06 AM CDT Performed at: ??01 - [facility] [address] ??[id number] Tire Finisher: Singh Chavez PhD, Phone: ??[phone] us Bull Taveras MD LAB BLOOD ORDERABLES Final Re sult [facility] - 01 * CBC with auto differential (10/17/2020 2:37 PM CDT) WBC 7.5 3.4 - 10.8 x10E3/uL [facility] - 01 RBC 4.20 3.77 - 5.28 x10E6/uL [facility] - 01 Hgb 12.1 11.1 - 15.9 g/dL [facility] - 01 Hct 37.0 34.0 - 46.6 % [facility] - 01 MCV 88 79 - 97 fL [facility] - 01 MCH 28.8 26.6 - 33.0 pg [facility] - 01 MCHC 32.7 31.5 - 35.7 g/dL [facility] - 01 Rdw 12.8 11.7 - 15.4 % [facility] - 01 Platelets 381 150 - 450 x10E3/uL [facility] - 01 Neutrophils pct 77 Not Estab. % [facility] - 01 Lymphs pct 13 Not Estab. % [facility] - 01 Monocytes pct 8 Not Estab. % [facility] - 01 Eosinophils pct 0 Not Estab. % [facility] - 01 Basophil pct 1 Not Estab. % [facility] - 01 Neutrophil abs 5.8 1.4 - 7.0 x10E3/uL [facility] - 01 Lymphs (Absolute) 1.0 0.7 - 3.1 x10E3/uL [facility] - 01 Monocyte abs 0.6 0.1 - 0.9 x10E3/uL [facility] - 01 Eosinophils, abs 0.0 0.0 - 0.4 x10E3/uL [facility] - 01 Basophils, abs 0.1 0.0 - 0.2 x10E3/uL [facility] - 01 Immature Granulocytes 1 Not Estab. % [facility] - 01 Immature Grans (Abs) 0.0 0.0 - 0.1 x10E3/uL [facility] - 01 Blood specimen (specimen) 10/17/2020 2:37 PM CDT 10/17/2020 Narrative [facility] - 10/20/2020 12:06 AM CDT Performed at: ??01 - [address] ??[id number] Tire Finisher: Singh Chavez PhD, Phone: ??[phone] Bull Taveras MD LAB BLOOD ORDERABLES Final Re sult Performing Organization Address [facility] Phone Number [facility] - 01 * Rheumatoid factor (10/17/2020 2:37 PM CDT) RA Latex Turbid. <10.0 0.0 - 13.9 IU/mL [facility] - 01 Blood specimen (specimen) 10/17/2020 2:37 PM CDT 10/17/2020 Narrative [facility] - 10/20/2020 12:06 AM CDT Performed at: ??[address] ??[id number] Tire Finisher: Singh Chavez PhD, Phone: ??[phone] Bull Taveras MD LAB BLOOD ORDERABLES Final Re sult Performing Organization Address [facility] de Phone Number [facility] - * (ABNORMAL) CRP (acute phase) (10/17/2020 2:37 PM CDT) CRP 13(H) 0 - 10 mg/L [facility] - 01 Blood specimen (specimen) 10/17/2020 2:37 PM CDT 10/17/2020 Narrative [facility] - 10/20/2020 12:06 AM CDT Performed at: ??01 - [address] ??[id number] Tire Finisher: Singh Chavez PhD, Phone: ??[phone] Bull Taveras MD LAB BLOOD ORDERABLES Final Re sult Performing Organization Address [facility] de Phone Number [facility] - * Erythrocyte sedimentation rate (10/17/2020 2:37 PM CDT) Pathologist [facility] Erythrocyte sedimentation rate 11 0 - 40 mm/hr [facility] - 01 Blood specimen (specimen) 10/17/2020 2:37 PM CDT 10/17/2020 Narrative [facility] - 10/20/2020 12:06 AM CDT Performed at: ??01 - [address] ??[id number] Tire Finisher: Singh Chavez PhD, Phone: ??[phone] Bull Taveras MD LAB BLOOD ORDERABLES Final Re sult Performing Organization Address [facility] de Phone Number [facility] - 01 documented in this encounter Visit Diagnoses Diagnosis Essential hypertension- Primary Unspecified essential hypertension Polyarthritis Unspecified polyarthropathy or polyarthritis, site unspecified Thyroid nodule Nontoxic uninodular goiter Hyperglycemia Other abnormal glucose documented in this encounter Historical Medications * This list may reflect changes made after this encounter. cetirizine (ZyrTEC) 10 mg tablet Take 1 tablet (10 mg total) by mouth daily [facility] cholecalciferol (VITAMIN D-3) 2000 unit capsule 2,000 Units 2020 calcium carb-D3-mag ox-zinc ox 333 mg-133 unit -133 mg-5 mg tablet Take by mouth daily 08/07/2021 magnesium oxide 400 mg magnesium capsule Take 400 mg by mouth daily 08/07/2021 acetaminophen (TYLENOL) 500 mg tablet Take 500 mg by mouth every 6 (six) hours as needed for pain 01/10/2022 predniSONE (DELTASONE) 5 mg tablet Take 5 mg by mouth every other day 10/27/2020 hydrOXYchloroQUIN E (PLAQUENIL) 200 mg tabletIndications :Rheumatoid Arthritis Take 200 mg by mouth 2 (two) times a day 04/03/2021 fluticasone propion-salmetero L (ADVAIR DISKUS) 250-50 mcg/dose diskus inhaler Inhale 1 puff 2 (two) times a day Rinse mouth with water after use. Do not swallow. Patient is unsure of exact dosage. 10/27/2020 lisinopriL (PRINIVIL,ZESTRIL ) 10 mg tablet Take 10 mg by mouth daily 03/20/2021 added in this encounter Care Teams Entry Driver Operator Relationship Specialty Start Date End Date Bull Taveras MD [address] [address] PCP - General Internal Medicine 08/24/20 documented as of this encounter
--- OUTSIDE RECORDS SUMMARY | 2024-07-14 22:36 | XMS_ITS | Encounter Summary ---
Author Organization [facility] Address [address] [place] [address] Phone Care Team Providers Care Overhead Irrigator Name Role Phone Bull Taveras MD Primary Care Provider Reason for Referral * Procedure (Routine) - Closed Specialty Diagnoses / Procedures Referred By Contac t Referred To Contact Diagnoses Airway obstruction Abnormal PFTs (pulmonary function tests) Procedures Pulmonary Function Test -[facility] PFT [facility]- [facility]-8D; Oxygen Assessment Titration Conner Vale MD [id number] [place] [address] Phone: tel: fax: [facility] (All Locations) Referral ID Status Reason Start Date Expiration Date Visits Re quested Visits Authorized [id number] Closed 12/26/2020 01/25/2022 1 1 Reason for Visit * Procedure (Routine) - Closed Specialty Diagnoses / Procedures Referred By Contac t Referred To Contact Diagnoses Airway obstruction Abnormal PFTs (pulmonary function tests) Procedures Pulmonary Function Test -[facility] Adult PFT [facility]- [facility]-8D; Oxygen Assessment Titration Conner Vale MD [address] [facility] [address] [place] [address] Phone: tel: fax: [facility] (All Locations) Referral ID Status Reason Start Date Expiration Date Visits Re quested Visits Authorized [id number] Closed 12/26/2020 01/25/2022 1 1 Encounter Details Date Type Department Care Team (Latest Contact Info) Description 12/26/2020 1:51 PM CDT - 12/26/2020 11:59 PM CDT Hospital Encounter [facility] Pulmonary [address] [facility] [address] [place] [address] Airway obstruction; Abnormal PFTs (pulmonary function tests) Discharge Disposition: Discharge to home or self care Social History Tobacco Use Types Packs/Day Years Used Date Smoking Tobacco: Former Cigarettes Q uit: 12/13/2019 Smokeless Tobacco: Never Comments Unknown Sex and Gender Information Value Date Recorded Sex Assigned at Not on file 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 Gender Identity Not on file Sexual Orientation Straight 03/05/2021 1: 44 PM CDT documented as of this encounter Medications at Time of Discharge cetirizine (ZyrTEC) 10 mg tablet Take 1 tablet (10 mg total) by mouth daily [employer] Allergy acetaminophen (TYLENOL) 500 mg tablet Take 500 [...] D-3) 2000 unit capsule 2,000 Units 03/09/2021 hydrOXYchloroQUI NE (PLAQUENIL) 200 mg tabletIndication s:Rheumatoid [...] other day 30 tablet 1 10/27/2020 02/07/2021 umeclidinium-su anteroL (ANORO ELLIPTA) 62.5-25 mcg/actuation blister [...] Diagnosis Comments PULMONARY FUNCTION TEST (PFT) Routine 12/26/2020 2:24 PM CDT Airway obstruction Abnormal PFTs (pulmonary function tests) documented in this encounter Results * Pulmonary Function Test -[facility]FT [facility]- [facility]-8D; Oxygen Assessment Titration (12/26/2020 2:24PM CDT) Anatomical Region Laterality Modality PFT Narrative 12/29/2020 1:49 PM CDT [facility] Division of Pulmonary & Critical Care Medicine [address] [place] [address]; [place] [address] [facility]; [place], [place] ??[address]; [phone] Pulmonary Function Laboratory Pulmonary Stress Test Simple/Oxygen Assessment Patient: Lisa Scott Date: 12/26/2020 Physician: Kavin Ht: 64.5 in Wt: 193 lbs 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 Walk/Bike: ? 1 ??RA 100 87 0 ?? 2 ??RA 99 94 0 ?? 3 ??RA 99 97 0.5 ?? 4 ??RA 98 100 1 ?? 5 ??RA 99 101 1 ?? 6 min 0 sec ??1200 RA 99 101 1 ?? Recovery: ? 1 ??RA 100 84 1 138/78 1.38/59 3 ??RA 100 82 0.5 ? /\ ? *Nadia rate of perceived exertion (1-10 dyspnea scale) ?? *Tyler, CHEST 2003; 123:1408 Walk Test Summary: Six Minute Walk Distance: 1200 ft Six minute Walk Work [distance (m) x body wt (kg)]: 67991 kg.m (normal >60,000 kg.m) Oxygen required to maintain SpO2 greater than 90% during six minutes of walking: ??L/M Comments: Interpretation: Breathing room air, SpO2 is normal at rest and during exercise sufficient to increase pulse from 72 to 101 b/min, SpO2 is stable. ??On this basis, SpO2 is adequate at rest breathing room air and while walking breathing room air. ??This level of exercise is associated with no significant change of FEV1. Philip Campbell M.D. By signing this report, the attending pulmonary physician certifies that he/she has personally reviewed and interpreted the graphic and numerical data associated with this pulmonary function study and has reviewed and /or edited a preliminary draft report and agrees with the written final report. Conner Vale MD PFT ORDERABLES Final Result documented in this encounter Visit Diagnoses Diagnosis Airway obstruction Other diseases of respiratory system, not elsewhere classified Abnormal PFTs (pulmonary function tests) Nonspecific abnormal results of pulmonary system function study documented in this encounter Care Teams Overhead Irrigator Relationship Specialty Start Date End Date Bull Taveras MD [address] [place] [address] [address] [place] [address] PCP - General Internal Medicine 08/24/20 documented as of this encounter
--- OUTSIDE RECORDS SUMMARY | 2024-07-14 22:36 | XMS_ITS | Encounter Summary ---
Author Organization [facility] Healthcare Address [address] [place] [address] Care Team Providers Care Radiotelephone Technical Operator Name Role Phone Antony Taveras MD Primary Care Provider [phone] Reason for Visit * Reason Onset Date Comments Colon Cancer Screening 01/02/2021 Encounter Details Date Type Department Care Team (Late st Contact Info) Description 01/02/2021 Telephone [facility] Specialty Services [address] [place] [address] Florencia Nguyen RN Colon Cancer Screening Social History Tobacco Use Types Packs/Day Years Used Date Smoking Tobacco: Former Cigarettes Q uit: 12/13/2019 Smokeless Tobacco: Never Comments Unknown Sex and Gender Information Value Date Recorded Sex Assigned at Not on file 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 Letter sent to referring MD. * Telephone Encounter - Florencia Nguyen RN - 01/02/2021 2:14 PM CDT Please contact the patient regarding scheduling their upcoming procedure: ??? Sedation Scoring Model: Patient characteristics Score Characteristic Weight Patient requesting MAC? Only if patient brings this up after coversation Patient requesting MAC? 5 Needing to be scheduled with an interventionalist Needing to be scheduled with an interventionalist5 Anti-psychotic Anti-psychotic 5 BMI >45 BMI >45 5 Heart failure Heart failure 5 Oxygen requirement at rest Oxygen requirement at rest 5 Prior failed CS Prior failed CS 5 HIV medications HIV medications 5 Active alcohol use (>4 drinks per day in women, >5 drinks per day in men) Active alcohol use (>4 drinks per day in women, >5 drinks per day in men) 4 BMI >35 BMI >35 4 Arrythmia (controlled) Arrythmia (controlled) 3 DEANNE DEANNE 3 Active alcohol use (<4 drinks per day in women, <5 drinks per day in men) Active alcohol use (<4 drinks per day in women, <5 drinks per day in men) 3 Anti-viral use Anti-viral use 2 Anxiolytic (>4 days/week) Anxiolytic 2 Opioid use (>4 days/week) Opioid use 2 Healthy or no medications Healthy or no medications 1 Total Score Score <5 Conscious Sedation Score =5 Monitored Anesthesia Care Please notify patient of scheduling with conscious sedation or monitored anesthesia care Concious sedation: Based on your history, you will be scheduled with sedation provided by the train reservation clerk. This is called concious sedation and is very commonly used. You will be heavily sedated but will be able to communicate. You should not experience discomfort but, in the rare event that you do, more medications can be given. If patient requests to be scheduled with MAC: refer to scoring system, if score less than 5: due to limited availability of those slots, we reserve MAC for those that are higher risk from a sedation standpoint (including those with heart failure, severe COPD, or undergoing complex procedures). If score greater than 5, schedule with MAC If patient still requests to be done with MAC, please make a note of this and schedule with MAC Monitored Anesthesia Care: Based on your history, you will be scheduled with anesthesia provided byan anesthesiologist. ?? Referring provider: antony taveras md ??? Anesthesia type mac ??? BMI at the time of review 33.20 ??? Location limitations:NO LAURENT ? ? Procedure & diagnosis:z12.11 screen colon ??? Is the patient a diabetic:no ??? Bowel prep choice:NO mAG nulyt ??? Language preference: eng Is an lawn mower operator needed: no ??? Implanted Device no Special Instructions (i.e. needs to be scheduled with an interventionalist) CCK, COPD pulm stable Thank you so much! carina RN documented in this encounter Plan of Treatment Scheduled Procedures Name Priority Associated Diagnoses Date/Ti ia COLONOSCOPY Encounter for screening colonoscopy COLONOSCOPY Encounter for screening colonoscopy documented as of this encounter Visit Diagnoses Not on filedocumented in this encounter Care Teams Radiotelephone Technical Operator Relationship Specialty Start Date End Date Antony Taveras MD [address] [facility] [address] [place] [address] PCP - General Internal Medicine 08/24/20 documented as of this encounter
--- OUTSIDE RECORDS SUMMARY | 2024-07-14 22:36 | XMS_ITS | Encounter Summary ---
Author Organization [facility] Address [address] [place] [address] Care Team Providers Care Kier Drier Name Role Phone Bull Taveras MD Primary Care Provider [phone] Encounter Details Date Type Department Care Team (Late st Contact Info) Description 12/01/2020 [facility] [address] [facility] [address] [facility] [place] [address] Pooja Chapman NP [address] [facility] [address] [place], [place] [id number] Social History Tobacco Use Types Packs/Day Years Used Date Smoking Tobacco: Never Comments Unknown Sex and Gender Information Value Date Recorded Sex Assigned at Not on file 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 Gender Identity Not on file Sexual Orientation Straight 03/05/2021 1: 44 PM CDT documented as of this encounter Ordered Prescriptions Prescription Sig Dispense Quantity Refills Last Filled Start Date End Date amoxicillin-clavul anate (AUGMENTIN) 875-125 mg per tablet Take 1 tablet by mouth 2 (two) times a day for 10 days 20 tablet 12/01/2020 12/11/2020 documented in this encounter Miscellaneous Notes * Telephone Encounter - Pooja Chapman NP - 12/02/2020 8:29 AM CDT Patient with pharyngitis documented in this encounter Plan of Treatment Scheduled Procedures Name Priority Associated Diagnoses Date/Ti nc COLONOSCOPY Encounter for screening colonoscopy COLONOSCOPY Encounter for screening colonoscopy documented as of this encounter Visit Diagnoses Not on filedocumented in this encounter Care Teams Kier Drier Relationship Specialty Start Date End Date Bull Taveras MD [address] [place] [address] PCP - General Internal Medicine 08/24/20 documented as of this encounter
--- OUTSIDE RECORDS SUMMARY | 2024-07-14 22:36 | XMS_ITS | Encounter Summary ---
Author Organization [facility] Address [address] [facility] [address] [place] [address] Phone Care Team Providers Care Garment Examiner Name Role Phone Bull Taveras MD Primary Care Provider [phone] Reason for Referral * Procedure (Routine) - Closed Specialty Diagnoses / Procedures Referred By Grecia paulino Referred To Contact Diagnoses Airway obstruction Abnormal PFTs (pulmonary function tests) Procedures Pulmonary Function Test -[facility] PFT [facility]- [facility]D; Oxygen Assessment Titration Conner Vale MD [address] [place] [address] Phone: tel: fax: [facility] (All Locations) Referral ID Status Reason Start Date Expiration Date Visits Re quested Visits Authorized [id number] Closed 12/26/2020 01/25/2022 1 1 * Consultation (Routine) - Closed Specialty Diagnoses / Procedures Referred By Grecia paulino Referred To Contact Sleep Medicine Diagnoses DEANNE (obstructive sleep apnea) Conner Vale MD [address] [place] [address] Phone: tel: fax: [facility] [address] [facility] [address] [place] [address] Phone: tel: fax: Referral ID Status Reason Start Date Expiration Date V isits Requested Visits Authorized [id number] Closed Specialty Services Required 12/26/2020 01/25/2022 1 1 Question Answer Please select the performing region: [facility] [[id number]] Please select the performing department: [facility] [[id number]] # of visits: 1 Comments evl and treat DEANNE Reason for Visit * Consultation (Routine) - Closed Specialty Diagnoses / Procedures Referred By Contac t Referred To Contact Pulmonary Disease / Pulmonology Diagnoses Airway obstruction Abnormal PFTs (pulmonary function tests) Bull Taveras MD [address] [facility] [address] [place] [address] Phone: tel: fax: Rafael Tierney MD Phone: tel: fax: Referral ID Status Reason Start Date Expiration Date V isits Requested Visits Authorized [id number] Closed Specialty Services Required 12/13/2020 01/12/2022 30 30 Encounter Details Date Type Department Care Team (Late st Contact Info) Description 12/26/2020 1:00 PM CDT Office Visit [facility] [address] [facility] 8th [place] [address] [place] [address] Conner Vale MD [address] 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 Gender Identity Not on file Sexual Orientation Straight 03/05/2021 1: 44 PM CDT documented as of this encounter Last Filed Vital Signs Vital Sign Reading Time Taken Comments Blood Pressure 137/77 12/26/2020 12:29 PM CDT Pulse 78 12/26/2020 12:29 PM CDT Temperature 36.6 ??C (97.8 ??F) 12/26/2020 12:29 PM C DT Respiratory Rate 18 12/26/2020 12:29 PM CDT Oxygen Saturation 94% 12/26/2020 12:29 PM CDT Inhaled Oxygen Concentration - - Weight 87.7 kg (193 lb 6.4 oz) 12/26/2020 12:29 PM CDT Height 162.6 cm (5' 4 ) 12/26/2020 12:29 PM CDT Body Mass Index 33.2 12/26/2020 12:29 PM CDT documented in this encounter Ordered Prescriptions Prescription Sig Dispense Quantity Refills Last Filled Start Date End Date umeclidinium-vilan teroL (ANORO ELLIPTA) 62.5-25 mcg/actuation blister with device Inhale 1 puff daily 1 each 5 12/26/2020 06/20/2021 documented in this encounter Progress Notes * Rick Franklin MD - 12/26/2020 1:00 PM CDT [facility], L[facility], PULMONARY MEDICINE, [facility], 8TH FLOOR, [facility], [address] [place], [place] [id number] REASON FOR CONSULT: Patient is a 65 y.o. female with chief complaint of dyspnea and COPD. HPI: Patient presents today to establish care for dyspnea and COPD. History is notable for a hospitalization for a respiratory illness back in September of 2019 that she believes may have been COVID. She did not require ICU admission or intubation. Otherwise, she has no recent history of respiratory infections or exacerbations. She has no prior history of asthma or other lung disease. She continues to take Advair regularly, though she notes that it causes occasional throat irritation despite her rinsingafter use. She does have ongoing dyspnea when climbing stairs and walking relatively short distances. For example, during a recent vacation to [facility], she noticed that she wasn't able to keep up with her grandchildren when walking around the city. However, she is able to do her ADLs and IADLs essentially without limitation. This has been stable over the past few months. She uses albuterol up to three times daily, which she believes helps with her dyspnea. She has minimal cough at this point, stating that itwent away when she quit smoking last year. She does have seasonal and environmental allergies that occasional trigger post-nasal drip and cough, and in particular she is allergic to wood smoke. She does snore at night. She does not get good quality sleep, though she attributes that to nocturia more than sleep apnea. However, she has never been tested for DEANNE and is willing to undergo testing. ROS is notable for arthralgias and body aches, worst in the arms and wrists at this point, though the exact location seems to migrate somewhat. No rashes or other skin changes. She is on Plaquenil and prednisone every other day. She also uses CBD oil for her MSK pain. Etiology has not been fully elicited at this point. MEDICATIONS: acetaminophen (TYLENOL), albuterol (PROAIR RESPICLICK), calcium carb-d3-mag ox-zinc ox, cetirizine (ZYRTEC), cholecalciferol (VITAMIN D-3), fluticasone propion-salmeterol (ADVAIR DISKUS), hydroxychloroquine (PLAQUENIL), lisinopril (PRINIVIL,ZESTRIL), magnesium oxide, and prednisone (DELTASONE). ALLERGIES: Allergies Allergen Reactions ??? Novocain [Procaine] Anaphylaxis Heart races SOCIAL HISTORY: Smoked for 50+ years, most recently 1/2 ppd up until a year ago. 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 No illicit drug use. PAST MEDICAL HISTORY: 1. COPD. 2. Hospitalization for a respiratory illness in 09/2019. Etiology was not elicited; may have been COVID-19. 3. CKD III. 4. Hypertension. 5. Arthritis in her knees, elbows, and hands. PAST SURGICAL HISTORY: Past Surgical History: Procedure Laterality Date ??? REPAIR KNEE LIGAMENT FAMILY HISTORY: family history includes Asthma in her mother; Atrial fibrillation in her mother; COPD in her father and mother; Diabetes in her mother; Hyperlipidemia in her mother. REVIEW OF SYSTEMS: Relevant findings as above. Otherwise as per the [facility] Questionnaire, which was filled out by the patient and reviewed by me. EXAM: Vitals: Afebrile. Blood pressure is 137/77. Heart rate 78. Oxygen saturation is 94% on room air. Weight is 193 lbs, with a height of 5'4 , for a BMI of 33.2. General: woman, no distress. HEENT: NCAT, EOMI, sclera anicteric, PERRL, mild pharyngitis, Mallampati II airway. Neck: Supple. No JVD. CV: Normal rate, regular rhythm. No murmurs. Lungs: Clear bilaterally. Normal WOB. Abd: Obese. Otherwise benign. Ext: Trc edema with varicose veins noted in both legs. No notable joint swelling or erythema in herhands, knees, or wrists. Skin: Occasional telangiectasias on chest. No other rashes. Neuro: Fully alert and oriented. Grossly non-focal. Psych: Appropriate mood and affect. Answers all questions appropriately. DATA ??? PFTs today show an FEV1 of 2.25 L (81% of reference), FVC of 1.08 L (49% of reference), and FEV1/FVC of 48%. TLC is 117% of reference, with an RV of 175% of reference. DLCO was 70% of reference. Taken together, these tests are consistent with a severe obstructive ventilatory defect with air trapping. ??? During a mcbride walk today, patient's oxygen saturation was 99% on room air. With exertion sufficient to raise the heart rate from 72 to 101, saturation remained stable. Based on this testing, she does not need supplemental oxygen. She walked 1200 feet during the test. ??? CXR done today shows a possible Bochdalek hernia. Otherwise it is unremarkable. IMPRESSION AND PLAN: 65yoF with severe COPD who remains very functional and has had no recent exacerbations. 1. COPD. Severe obstructive ventilatory defect. No recent exacerbations. Does have ongoing dyspnea with class II symptoms, with little to no cough. We will switch her from Advair to Anoro, which is abetter medication for her obstructive lung disease. We also note that the steroid component of Advair may be causing her throat irritation. She can continue to use albuterol PRN 2. Smoking history. Smoked for ~50 years (at least 30 pack-years, and likely more); quit in 2020. Meets criteria for lung cancer screening. Accordingly, we will order a CT scan. 3. HCM. She has received both doses of the COVID vaccine. 4. She does have ongoing arthralgias and myalgias that may be inflammatory in nature, though etiology remains unclear. We will check for any CT-related lung involvement on her upcoming CT. 5. RTC in 12 months. Cosigned by Conner Vale MD at 12/28/2020 11:35 AM CDT Associated attestation - Conner Vale MD - 12/28/2020 11:35 AM CDT I have seen and examined the patient. I agree with the findings and plan of care as documented in the resident/fellow's note. documented in this encounter Plan of Treatment Scheduled Procedures Name Priority Associated Diagnoses Date/Ti me COLONOSCOPY Encounter for screening colonoscopy COLONOSCOPY Encounter for screening colonoscopy Scheduled Referrals Name Type Priority Associated Diagnoses Order Schedule Ambulatory referral to Sleep Medicine Outpatient Referral Routine DEANNE (obstructive sleep apnea) Expected: 01/09/2021 (Approximate), Expires: 12/26/2021 documented as of this encounter Results * Pulmonary Function Test -[facility] Adult PFT [facility]- [facility]-8D; Oxygen Assessment Titration (12/26/2020 2:24PM CDT) Anatomical Region Laterality Modality PFT Narrative 12/29/2020 1:49 PM CDT [facility] Division of Pulmonary & Critical Care Medicine [address] [place] [address]; [place] [address]; [place], [place] [address]; [phone] Pulmonary Function Laboratory Pulmonary Stress Test Simple/Oxygen Assessment Patient: Lisa Scott Date: 12/26/2020 Physician: Kavin Ht: 64.5 in Wt: 193 lbs 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 us Conner Vale MD PFT ORDERABLES Final Result documented in this encounter Visit Diagnoses Diagnosis DEANNE (obstructive sleep apnea)- Primary Obstructive sleep apnea (adult) (pediatric) Airway obstruction Other diseases of respiratory system, not elsewhere classified Abnormal PFTs (pulmonary function tests) Nonspecific abnormal results of pulmonary system function study Nicotine dependence, cigarettes, in remission Airway obstruction Other diseases of respiratory system, not elsewhere classified Abnormal PFTs (pulmonary function tests) Nonspecific abnormal results of pulmonary system function study documented in this encounter Discontinued Medications Medication Sig Discontinue Reason Start Date End Da te fluticasone propion-salmeteroL (ADVAIR DISKUS) 250-50 mcg/dose diskus inhaler Inhale 1 puff 2 (two) times a day Alternate therapy 10/27/2020 12/26/2020 documented as of this encounter Orders Outpatient Referral Count Last Ordered Date Fir st Ordered Date AMB REFERRAL TO PULMONOLOGY 1 12/26/2020 documented in this encounter Care Teams Garment Examiner Relationship Specialty Start Date End Date Bull Taveras MD [address] [address] PCP - General Internal Medicine 08/24/20 documented as of this encounter
--- OUTSIDE RECORDS SUMMARY | 2024-07-14 22:36 | XMS_ITS | Encounter Summary ---
Author Organization [facility] Healthcare Address [address] [place] [address] Care Team Providers Care Environmental Engineering Technician Name Role Phone Bull Taveras MD Primary Care Provider [phone] Reason for Referral * MRI/CAT/PET Scan (Routine) - Closed Specialty Diagnoses / Procedures Referred By Grecia t Referred To Contact Radiology Diagnoses Shortness of breath Myalgia Arthralgia, unspecified joint Airway obstruction Procedures CT Chest High Resolution WO Contrast Conner Vale MD [address] [address] Phone: tel: fax: [address] [address] Referral ID Status Reason Start Date Expiration Date Visits Re quested Visits Authorized [id number] Closed 12/28/2020 01/27/2022 1 1 Reason for Visit * MRI/CAT/PET Scan (Routine) - Closed Specialty Diagnoses / Procedures Referred By Contac t Referred To Contact Radiology Diagnoses Shortness of breath Myalgia Arthralgia, unspecified joint Airway obstruction Procedures CT Chest High Resolution WO Contrast Conner Vale MD [address] [address] Phone: tel: fax: [facility] [address] [facility] [place] [address] Referral ID Status Reason Start Date Expiration Date Visits Re quested Visits Authorized [id number] Closed 12/28/2020 01/27/2022 1 1 Encounter Details Date Type Department Care Team (Latest Contact Info) Description 01/09/2021 2:59 PM CDT - 01/09/2021 11:59 PM CDT Hospital Encounter [facility] Counts include 234 beds at the [facility] [place] [address] Conner Vale MD [address] [facility] [address] [place], [place] [id number] Shortness of breath; Myalgia; Arthralgia, unspecified joint; Airway obstruction Discharge Disposition: Discharge to home or self care Social History Tobacco Use Types Packs/Day Years Used Date Smoking Tobacco: Former Cigarettes Q uit: 12/13/2019 Smokeless Tobacco: Never Comments Unknown Sex and Gender Information Value Date Recorded Sex Assigned at Not on file 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 6 tablet 01/08/2021 03/09/2021 calcium carb-D3-mag ox-zinc ox 333 mg-133 unit [...] Priority Date/Time Associated Diagnosis Comments CT CHEST HIGH RESOLUTION WO CONTRAST Schedule Routine, Read Routine (OP Routine) 01/09/2021 3:24 PM CDT Shortness of breath Myalgia Arthralgia, unspecified joint Airway obstruction documented in this encounter Results * CT Chest High Resolution WO Contrast (01/09/2021 3:24 PM CDT) Anatomical Region Laterality Modality Chest N/A Computed Tomogra phy 01/09/2021 5:14 PM CDT Impressions 01/09/2021 7:39 PM CDT 1. ??No interstitial lung disease or acute abnormality. 2. Multinodular thyroid goiter. Further evaluation ??with ultrasound is recommended Dictated by: Brittany Brizuela M.D. The radiology attending physician has personally reviewed this study, and had reviewed and/or edited this written report and agrees with it. Electronically signed by: Rick Pritchett M.D. Narrative 01/09/2021 7:39 PM CDT EXAMINATION: ??Computed tomography of the chest without intravenous contrast HISTORY: Shortness of breath and arthralgias TECHNIQUE: ??Transaxial computed tomographic images of the chest ??were obtained without intravenous contrast according to the high-resolution protocol COMPARISON: None available FINDINGS: ?? There is a multinodular goiter. There is no supraclavicular, axillary, mediastinal, or hilar lymphadenopathy. Calcified mediastinal lymph nodes are likely the sequela of prior granulomatous disease. The heart is normal in size. There is mild coronary artery atherosclerosis. There is no pericardial effusion. Mild atelectasis in the lung bases. ??There is no air trapping on expiration images. There is no focal airspace consolidation, pleural effusion, or pneumothorax. There is no reticulation or honeycombing. Limited evaluation of the upper abdomen demonstrates calcified granulomas within the spleen. No suspicious osseous lesion is seen. Procedure Note Rick Pritchett MD - 01/09/2021 EXAMINATION: Computed tomography of the chest without intravenous contrast HISTORY: Shortness of breath and arthralgias TECHNIQUE: Transaxial computed tomographic images of the chest were obtained without intravenous contrast according to the high-resolution protocol COMPARISON: None available FINDINGS: There is a multinodular goiter. There is no supraclavicular, axillary, mediastinal, or hilar lymphadenopathy. Calcified mediastinal lymph nodes are likely the sequela of prior granulomatous disease. The heart is normal in size. There is mild coronary artery atherosclerosis. There is no pericardial effusion. Mild atelectasis in the lung bases. There is no air trapping on expiration images. There is no focal airspace consolidation, pleural effusion, or pneumothorax. There is no reticulation or honeycombing. Limited evaluation of the upper abdomen demonstrates calcified granulomas within the spleen. No suspicious osseous lesion is seen. IMPRESSION: 1. No interstitial lung disease or acute abnormality. 2. Multinodular thyroid goiter. Further evaluation with ultrasound is recommended Dictated by: Brittany Brizuela M.D. The radiology attending physician has personally reviewed this study, and had reviewed and/or edited this written report and agrees with it. Electronically signed by: Rick Pritchett M.D. Conner Vale MD IMG CT PROCEDURES Final Result documented in this encounter Visit Diagnoses Diagnosis Shortness of breath Myalgia Unspecified myalgia and myositis Arthralgia, unspecified joint Airway obstruction Other diseases of respiratory system, not elsewhere classified documented in this encounter Care Teams Environmental Engineering Technician Relationship Specialty Start Date End Date Bull Taveras MD [address] [place] [address] PCP - General Internal Medicine 08/24/20 documented as of this encounter
--- OUTSIDE RECORDS SUMMARY | 2024-07-14 22:36 | XMS_ITS | Encounter Summary ---
Author Organization [facility] Healthcare Address [address] [place] [address] Care Team Providers Care Web Pressman Name Role Phone Bull Taveras MD Primary Care Provider [phone] Reason for Referral * Diagnostic Imaging (Routine) - Closed Specialty Diagnoses / Procedures Referred By Grecia paulino Referred To Contact Diagnoses Airway obstruction Procedures XR Chest Pa Lateral 2 Views Conner Vale MD [address] [address] Phone: tel: fax: [address] [address] Referral ID Status Reason Start Date Expiration Date Visits Re quested Visits Authorized [id number] Closed 12/26/2020 01/25/2022 1 1 Reason for Visit * Diagnostic Imaging (Routine) - Closed Specialty Diagnoses / Procedures Referred By Grecia paulino Referred To Contact Diagnoses Airway obstruction Procedures XR Chest Pa Lateral 2 Views Conner aVle MD [address] [address] Phone: tel: fax: [address] [address] Referral ID Status Reason Start Date Expiration Date Visits Re quested Visits Authorized [id number] Closed 12/26/2020 01/25/2022 1 1 Encounter Details Date Type Department Care Team (Latest Contact Info) Description 12/26/2020 12:04 PM CDT - 12/26/2020 12:12 PM CDT Hospital Encounter [facility] [address] [place] [address] Conner Vale MD [address] [facility] [address] [place] [address] Airway obstruction Discharge Disposition: Discharge to home or self care Social History Tobacco Use Types Packs/Day Years Used Date Smoking Tobacco: Former Cigarettes Q uit: 12/13/2019 Smokeless Tobacco: Never Comments Unknown Sex and Gender Information Value Date Recorded Sex Assigned at Not on file 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 Electronically signed by: Sheri Campbell M.D. Impressions 12/26/2020 12:45 PM CDT There are no prior chest radiographs at [facility] for comparison. The heart and mediastinal contours are normal. ??There is no mass or consolidation. ??There is no lymphadenopathy. ??There are no pleural effusions. ??There is no pneumothorax. There is old granulomatous disease. Electronically signed by: Sheri Campbell M.D. Narrative 12/26/2020 12:45 PM CDT EXAMINATION: 2 view chest radiograph Procedure Note Sheri Campbell MD - 12/26/2020 EXAMINATION: 2 view chest radiograph IMPRESSION: There are no prior chest radiographs at [facility] for comparison. The heart and mediastinal contours are normal. There is no mass or consolidation. There is no lymphadenopathy. There are no pleural effusions. There is no pneumothorax. There is old granulomatous disease. Electronically signed by: Sheri Campbell M.D. Conner Vale MD IMG XR PROCEDURES Edited Resul t - Final documented in this encounter Visit Diagnoses Diagnosis Airway obstruction Other diseases of respiratory system, not elsewhere classified documented in this encounter Care Teams Web Pressman Relationship Specialty Start Date End Date Bull Taveras MD [address] [place] [address] PCP - General Internal Medicine 08/24/20 documented as of this encounter
--- OUTSIDE RECORDS SUMMARY | 2024-07-14 22:36 | XMS_ITS | Encounter Summary ---
Author Organization [facility] Healthcare Address [address] [place] [address] Care Team Providers Care Call Or Contact Centre Operator Name Role Phone Bull Taveras MD Primary Care Provider [phone] Reason for Referral * Diagnostic Imaging (Routine) - Closed Specialty Diagnoses / Procedures Referred By Contac t Referred To Contact Diagnoses Essential hypertension Stage 3a chronic kidney disease (HCC) Procedures US Kidney Complete US Renal Limited Bull Taveras MD [address] [employer] [address] [address] Phone: tel: fax: [address] [address] Referral ID Status Reason Start Date Expiration Date Visits Re quested Visits Authorized [id number] Closed 11/22/2020 12/22/2021 1 1 Reason for Visit * Diagnostic Imaging (Routine) - Closed Specialty Diagnoses / Procedures Referred By Contac t Referred To Contact Diagnoses Essential hypertension Stage 3a chronic kidney disease (HCC) Procedures US Kidney Complete US Renal Limited Bull Taveras MD [address] [address] Phone: tel: fax: [address] [place] [address] Referral ID Status Reason Start Date Expiration Date Visits Re quested Visits Authorized [id number] Closed 11/22/2020 12/22/2021 1 1 Encounter Details Date Type Department Care Team (Latest Contact Info) Description 12/15/2020 7:34 AM CDT - 12/15/2020 11:59 PM CDT Hospital Encounter [facility] [address] [place] [address] Bull Taveras MD [address] [facility] [address] [place] [address] Essential hypertension; Stage 3a chronic kidney disease Discharge Disposition: Discharge to home or self care Social History Tobacco Use Types Packs/Day Years Used Date Smoking Tobacco: Never Comments Unknown Sex and Gender Information Value Date Recorded Sex Assigned at Not on file 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 Electronically signed by: Javier Choudhary M.D. us Bull Taveras MD IMG US PROCEDURES Final Resul t documented in this encounter Visit Diagnoses Diagnosis Essential hypertension Unspecified essential hypertension Stage 3a chronic kidney disease (HCC) documented in this encounter Care Teams Call Or Contact Centre Operator Relationship Specialty Start Date End Date Bull Taveras MD [address] [place] [address] PCP - General Internal Medicine 08/24/20 documented as of this encounter
--- OUTSIDE RECORDS SUMMARY | 2024-07-14 22:36 | XMS_ITS | Encounter Summary ---
Author Organization [facility] Address [address] [facility] [address] [place] [address] Phone Care Team Providers Care Hose Suspender Cutter Name Role Phone Bull Taveras MD Primary Care Provider [phone] Reason for Referral * Procedure (Routine) - Closed Specialty Diagnoses / Procedures Referred By Grecia paulino Referred To Contact Diagnoses Airway obstruction Procedures Pulmonary Function Test -[facility] Adult PFT Lab- [facility]-8D; Spirometry with Bronchodilator Conner Vale MD [address] [place] [address] Phone: tel: fax: [facility] (All Locations) Referral ID Status Reason Start Date Expiration Date Visits Re quested Visits Authorized [id number] Closed 12/26/2020 01/25/2022 1 1 * Diagnostic Imaging (Routine) - Closed Specialty Diagnoses / Procedures Referred By Grecia paulino Referred To Contact Diagnoses Airway obstruction Procedures XR Chest Pa Lateral 2 Views Conner Vale MD [address] [place] [address] Phone: tel: fax: [address] [address] Referral ID Status Reason Start Date Expiration Date Visits Re quested Visits Authorized [id number] Closed 12/26/2020 01/25/2022 1 1 Encounter Details Date Type Department Care Team (Late st Contact Info) Description 12/26/2020 Orders Only [facility] Pulmonary [address] [facility] 8th [place] [address] [place] [address] Conner Vale MD [address] [facility] [address] [place] [address] Airway obstruction (Primary Dx) Social History Tobacco Use Types Packs/Day Years Used Date Smoking Tobacco: Former Cigarettes Q uit: 12/13/2019 Smokeless Tobacco: Never Comments Unknown Sex and Gender Information Value Date Recorded Sex Assigned at Not on file 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 Gender Identity Not on file Sexual Orientation Straight 03/05/2021 1: 44 PM CDT documented as of this encounter Plan of Treatment Scheduled Orders Name Type Priority Associated Diagnoses Orde r Schedule Pulmonary Function Test -[facility] Adult PFT [facility]- [facility]-8D; Spirometry with Bronchodilator PFT Routine Airway obstruction Expected: 12/26/2020, Expires: 06/27/2022 Scheduled Procedures Name Priority Associated Diagnoses Date/Ti me COLONOSCOPY Encounter for screening colonoscopy COLONOSCOPY Encounter for screening colonoscopy documented as of this encounter Results * XR Chest Pa [...] There are no prior chest radiographs at [facility] for comparison. The heart and mediastinal contours are normal. ??There is no mass or consolidation. ??There is no lymphadenopathy. ??There are no pleural effusions. ??There is no pneumothorax. There is old granulomatous disease. Electronically signed by: Sheri Campbell M.D. [facility] 12/26/2020 12:45 PM CDT EXAMINATION: 2 view chest radiograph Procedure Note Sheri Campbell MD - 12/26/2020 EXAMINATION: 2 view chest radiograph IMPRESSION: There are no prior chest radiographs at [facility] for comparison. The heart and mediastinal contours [...] diseases of respiratory system, not elsewhere classified Airway obstruction Other diseases of respiratory system, not elsewhere classified documented in this encounter Care Teams Hose Suspender Cutter Relationship Specialty Start Date End Date Bull Taveras MD [address] [address] PCP - General Internal Medicine 08/24/20 documented as of this encounter
--- OUTSIDE RECORDS SUMMARY | 2024-07-14 22:36 | XMS_ITS | Encounter Summary ---
Author Organization [facility] Address [address] [place] [address] Phone Care Team Providers Care Event Marketing Specialist Name Role Phone Bull Taveras MD Primary Care Provider [phone] Reason for Referral * MRI/CAT/PET Scan (Routine) - Closed Specialty Diagnoses / Procedures Referred By Contac t Referred To Contact Radiology Diagnoses Shortness of breath Myalgia Arthralgia, unspecified joint Airway obstruction Procedures CT Chest High Resolution WO Contrast Conner Vale MD [address] [place] [address] Phone: tel: fax: [facility] [address] [place] [address] Referral ID Status Reason Start Date Expiration Date Visits Re quested Visits Authorized [id number] Closed 12/28/2020 01/27/2022 1 1 Encounter Details Date Type Department Care Team (Late st Contact Info) Description 12/28/2020 Orders Only [facility] Pulmonary [address] [facility] 8th [place] [address] [place] [address] Conner Vale MD [address] [place] [address] Shortness of breath (Primary Dx); Myalgia; Arthralgia, unspecified joint; Airway obstruction Social History Tobacco Use Types Packs/Day Years Used Date Smoking Tobacco: Former Cigarettes Q uit: 12/13/2019 Smokeless Tobacco: Never Comments Unknown Sex and Gender Information Value Date Recorded Sex Assigned at Not on file 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 Gender Identity Not on file Sexual Orientation Straight 03/05/2021 1: 44 PM CDT documented as of this encounter Plan of Treatment Scheduled Procedures Name Priority Associated Diagnoses Date/Ti me COLONOSCOPY Encounter for screening colonoscopy COLONOSCOPY Encounter for screening colonoscopy documented as of this encounter Results * CT Chest High [...] Visit Diagnoses Diagnosis Shortness of breath- Primary Myalgia Unspecified myalgia and myositis Arthralgia, unspecified joint Airway obstruction Other diseases of respiratory system, not elsewhere classified Shortness of breath Myalgia Unspecified myalgia and myositis Arthralgia, unspecified joint Airway obstruction Other diseases of respiratory system, not elsewhere classified documented in this encounter Care Teams Event Marketing Specialist Relationship Specialty Start Date End Date Bull Taveras MD [address] [facility] [address] [place] [address] PCP - General Internal Medicine 08/24/20 documented as of this encounter
--- OUTSIDE RECORDS SUMMARY | 2024-07-14 22:36 | XMS_ITS | Encounter Summary ---
Author Organization [facility] Address [address] [place] [address] Care Team Providers Care Heel Trimmer Name Role Phone Sheela Renner MD Primary Care Provider [phone] Encounter Details Date Type Department Care Team (Late st Contact Info) Description 08/12/2020 [facility] [address] 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 6 tablet 08/12/2020 08/17/2020 documented in this encounter Miscellaneous Notes * Telephone Encounter - Pooja Chapman NP - 08/14/2020 9:19 AM FACILITIES TECHNICIAN After hours notification of patient with sinus pain/pressure and congestion. No fever. No myalgias.Zpack sent and patient going to obtain COVID test 08/14/20 AM LITIES TECHNICIAN documented in this encounter Plan of Treatment Scheduled Procedures Name Priority Associated Diagnoses Date/Ti me COLONOSCOPY Encounter for screening colonoscopy COLONOSCOPY Encounter for screening colonoscopy documented as of this encounter Visit Diagnoses Not on filedocumented in this encounter Care Teams Heel Trimmer Relationship Specialty Start Date End Date Sheela Renner MD [address] [place] [address] PCP - General Family Medicine 09/18/19 08/23/20 documented as of this encounter
--- OUTSIDE RECORDS SUMMARY | 2024-07-14 22:36 | XMS_ITS | Encounter Summary ---
Author Organization [facility] Address [address] [place] [address] Care Team Providers Care Tie Carrier Name Role Phone Bull Taveras MD Primary Care Provider [phone] Reason for Referral * Consultation (Routine) - Closed Specialty Diagnoses / Procedures Referred By Contac t Referred To Contact Pulmonary Disease / Pulmonology Diagnoses Airway obstruction Abnormal PFTs (pulmonary function tests) Bull Taveras MD [address] [facility] [address] [place] [address] Phone: tel: fax: Rafael Tierney MD Phone: tel: fax: Referral ID Status Reason Start Date Expiration Date V isits Requested Visits Authorized [id number] Closed Specialty Services Required 12/13/2020 01/12/2022 30 30 Question Answer Please select the performing region: [facility] (All Locations) [[id number]] # of visits: 20 Comments PFT TESTING IS IN SYSTEM Encounter Details Date Type Department Care Team (Late st Contact Info) Description 12/13/2020 [facility] [address] [facility] [address] 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 Please refer to pulmonary. documented in this encounter Plan of Treatment Scheduled Procedures Name Priority Associated Diagnoses Date/Ti me COLONOSCOPY Encounter for screening colonoscopy COLONOSCOPY Encounter for screening colonoscopy Scheduled Referrals Name Type Priority Associated Diagnoses Order Schedule Ambulatory referral to Pulmonology Outpatient Referral Routine Airway obstruction Abnormal PFTs (pulmonary function tests) Expected: 12/27/2020 (Approximate), Expires: 12/13/2021 documented as of this encounter Visit Diagnoses Diagnosis Airway obstruction- Primary Other diseases of respiratory system, not elsewhere classified Abnormal PFTs (pulmonary function tests) Nonspecific abnormal results of pulmonary system function study documented in this encounter Care Teams Tie Carrier Relationship Specialty Start Date End Date Bull Taveras MD [address] [facility] [address] [place] [address] PCP - General Internal Medicine 08/24/20 documented as of this encounter
--- OUTSIDE RECORDS SUMMARY | 2024-07-14 22:36 | XMS_ITS | Encounter Summary ---
Author Organization [facility] Address [address] [place] [address] Care Team Providers Care Aviation Safety Officer Name Role Phone Bull Taveras MD Primary Care Provider [phone] Encounter Details Date Type Department Care Team (Late st Contact Info) Description 10/24/2020 [facility] [address] [facility] [address] [place] [address] Lisa Cortés MA [address] [place] [address] Social History Tobacco Use Types Packs/Day Years Used Date Smoking Tobacco: Never Assessed Comments Unknown Sex and Gender Information Value Date Recorded Sex Assigned at Not on file Legal Sex Female 6:46 AM 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 Please make follow up on with me to discuss this and joint pain documented in this encounter Plan of Treatment Scheduled Procedures Name Priority Associated Diagnoses Date/Ti me COLONOSCOPY Encounter for screening colonoscopy COLONOSCOPY Encounter for screening colonoscopy documented as of this encounter Visit Diagnoses Not on filedocumented in this encounter Care Teams Aviation Safety Officer Relationship Specialty Start Date End Date Bull Taveras MD [address] [address] PCP - General Internal Medicine 08/24/20 documented as of this encounter
--- OUTSIDE RECORDS SUMMARY | 2024-07-14 22:36 | XMS_ITS | Encounter Summary ---
Author Organization [facility] Address [address] [place] [address] Care Team Providers Care Hog Dropper Name Role Phone Sheela Renner MD Primary Care Provider [phone] Encounter Details Date Type Department Care Team (Late st Contact Info) Description 08/23/2020 [facility] [address] [facility] [address] [place] [id number] Sheela Renner MD [address] [place] [address] Social History Tobacco Use Types Packs/Day Years Used Date Smoking Tobacco: Never Assessed Comments Unknown Sex and Gender Information Value Date Recorded Sex Assigned at Not on file Legal Sex Female 6:46 AM DOCTOR OF 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 Please do monthly breast self exams. OR OF OSTEOPATHY documented in this encounter Plan of Treatment Scheduled Procedures Name Priority Associated Diagnoses Date/Ti me COLONOSCOPY Encounter for screening colonoscopy COLONOSCOPY Encounter for screening colonoscopy documented as of this encounter Visit Diagnoses Not on filedocumented in this encounter Care Teams Hog Dropper Relationship Specialty Start Date End Date Sheela Renner MD [address] [place] [address] PCP - General Family Medicine 09/18/19 08/23/20 documented as of this encounter
--- OUTSIDE RECORDS SUMMARY | 2024-07-14 22:36 | XMS_ITS | Encounter Summary ---
Author Organization [facility] Address [address] [place] [address] Phone Care Team Providers Care Enterprise Integration Developer Name Role Phone Bull Taveras MD Primary Care Provider [phone] Encounter Details Date Type Department Care Team (Late st Contact Info) Description 12/28/2020 Telephone [facility] [address] [facility] 8th [place] [address] [place] [address] Nahomi Boyce RN Social History Tobacco Use Types Packs/Day Years Used Date Smoking Tobacco: Former Cigarettes Q uit: 12/13/2019 Smokeless Tobacco: Never Comments Unknown Sex and Gender Information Value Date Recorded Sex Assigned at Not on file Legal Sex Female 6:46 AM NIGHT MONITOR Gender Identity Not on file Sexual Orientation Straight 03/05/2021 1: 44 PM CDT documented as of this encounter Miscellaneous Notes * Telephone Encounter - Nahomi Boyce RN - 12/28/2020 9:24 AM CDT Appt. for lung cancer screening chest CT on 01/09 at 3:20pm changed to a hi res chest CT as ordered.It is scheduled on the same date and time. documented in this encounter Plan of Treatment Scheduled Procedures Name Priority Associated Diagnoses Date/Ti me COLONOSCOPY Encounter for screening colonoscopy COLONOSCOPY Encounter for screening colonoscopy documented as of this encounter Visit Diagnoses Not on filedocumented in this encounter Care Teams Enterprise Integration Developer Relationship Specialty Start Date End Date Bull Taveras MD [address] [facility] [address] [place] [address] PCP - General Internal Medicine 08/24/20 documented as of this encounter
== END 2024-07-07 22:17 | disposition home or self-care (01) ==
PROVIDERS: Emergency Provider Physician Assistant; PCP Internal Medicine
DX: S61.212A Laceration without foreign body of right middle finger without damage to nail, initial encounter (principal); G47.30 Sleep apnea, unspecified; J44.9 Chronic obstructive pulmonary disease, unspecified; E04.2 Nontoxic multinodular goiter; I27.20 Pulmonary hypertension, unspecified; I50.9 Heart failure, unspecified; N18.9 Chronic kidney disease, unspecified; F32.A Depression, unspecified; E78.5 Hyperlipidemia, unspecified; Z79.01 Long term (current) use of anticoagulants; W26.9XXA Contact with unspecified sharp object(s), initial encounter
CPT/HCPCS: 12001; 73140; 99283

== ENCOUNTER 2025-04-27 03:44 | Emergency (ER) | payer MEDICARE, SELFPAY ==
[2025-04-27 03:49] VITALS: BP 127/71; PULSE 70; RESP 21; O2SAT 95
--- NOTE | 2025-04-27 03:58 | ECG_ITS ---
Test Date: 2025-04-27 03:55:18 Measurements Intervals [place] Rate: 68 P: 63 CO: 157 QRS: 69 QRSD: 93 T: 74 QT: 413 QTc: 440 Interpretive Statements SINUS RHYTHM BASELINE ARTIFACT- I, II, III, AVR, AVL, AVF, V1, V4-V6 NORMAL ECG No previous ECG available for comparison Electronically Signed On 04-27-2025 09:09:16 CDT by Davion Cardenas D.O.
[2025-04-27 04:04] VITALS: PULSE 74
--- NOTE | 2025-04-27 04:27 | ED.ALCOHOL ---
HPI - Alcohol General Chief Complaint: Fall Stated Complaint: SOB, GLF, ETOH+ Time Seen by Provider: 04/27/25 03:52 History of Present Illness HPI narrative: Patient is 70-year-old female who presents to the emergency department this morning via EMS due to alcohol intoxication, fall and mild shortness of breath. Patient does have a history of COPD and per EMS, patient used her home inhaler and states that that resulted shortness of breath. Patient's sister earlier today and this prompted the patient and her brother who is present with her at bedside to started drinking. Patient is not a drinker and became extremely intoxicated. She did have a fall at home, however, patient did not hit her head and not lose any consciousness. She is moving all 4 extremities spontaneously and denying any pain anywhere at this time. She is on Eliquis. She is denying any symptoms at this time. Her brother who is with her to witness the fall and can not confirm that she did not hit her head. Related Data Home Medications ?Medication ?Instructions ?Recorded ?Confirmed ?Last Taken ?Type albuterol sulfate 90 mcg/actuation 2 inhalation inhalation QID PRN 08/24/21 10/15/22 10/23/22 History breath activated powder inhaler shortness of breath atorvastatin 10 mg tablet 10 mg PO HS 08/24/21 10/15/22 10/23/22 History calcium carb-vitamin D3 ER 600 mg 1 tablet PO HS 08/24/21 10/15/22 10/23/22 History (1,500 mg)-500 unit tablet,ER 24 hr chlorthalidone 25 mg tablet 12.5 mg PO QAM 08/24/21 10/15/22 10/23/22 History lisinopril 10 mg tablet 10 mg PO HS 08/24/21 10/24/22 10/24/22 History umeclidinium 62.5 mcg-vilanterol 1 inh inhalation QAM 08/24/21 10/15/22 10/23/22 History 25 mcg/actuation powdr for inhalation (Anoro Ellipta) cholecalciferol (vitamin D3) 50 50 mcg PO DAILY 10/15/22 10/15/22 10/23/22 History mcg (2,000 unit) tablet (Vitamin D3) loratadine 10 mg tablet (Allergy 10 mg PO DAILY 04/11/0310/15/22 10/23/22 History Relief (loratadine)) lysine 500 mg tablet 500 mg PO BID 10/15/22 10/15/22 10/23/22 History magnesium 500 mg tablet 500 mg PO DAILY 10/15/22 10/15/22 10/23/22 History potassium 99 mg tablet 99 mg PO DAILY 10/15/22 10/15/22 10/23/22 History prednisone 10 mg tablet 10 mg PO DIRECTED 10/15/22 10/15/22 10/23/22 History Allergies Allergy/AdvReac Type Severity Reaction Status Date / Time pine nut Allergy Intermediate Itching Verified 10/24/22 08:20 lidocaine Allergy Unknown Tachycardia Verified 10/24/22 08:20 NOVACAINE Allergy Mild Other Uncoded 10/24/22 08:20 Review of Systems Review of Systems: Unable to obtain a full review of systems secondary to patient's current alcohol intoxication.. PMFSH Past Medical History Medical History Obstructive sleep apnea on CPAP (~07/2021) With CPAP pressures between 8 and 12. COPD (chronic obstructive pulmonary disease) Multinodular goiter (~09/2019) With thyroid biopsy demonstrating benign follicle February 2020 Mild pulmonary hypertension Noted on echocardiogram 09/2019 Diastolic heart failure Echocardiogram 09/2019: Grade 2 diastolic dysfunction, EF greater than 70 present, mild pulmonary hypertension, trace mitral valve regurgitation, mild tricuspid valve regurgitation Chronic kidney disease (CKD) Baseline creatinine between 1.2-1.5 Colon ulcer 1999 Diverticulitis Nicotine dependence with current use Depressive disorder, not elsewhere classified Essential (primary) hypertension Methicillin resistant Staphylococcus aureus infection on her back in 2009 Mixed hyperlipidemia Nicotine dependence, unspecified, in remission Surgical History Surgical History H/O arthroscopy of knee x3 on right knee, x1 on left knee Family History Family History Father Congestive heart failure Family history of coronary artery disease Chronic obstructive pulmonary disease Hypertension Acute myocardial infarction Mother Diabetes mellitus Chronic obstructive pulmonary disease Hypertension Asthma Acute myocardial infarction Sibling Chronic obstructive pulmonary disease Hypertension Asthma Social History Social History Social History: The patient has smoked since she was a teenager. She has smoked a little less than a pack of cigarettes per day for 47 years. She had quit smoking for 2 and half to 3 years but started smoking again several years ago. She quit smoking September 2019. She drinks a couple of alcoholic beverages a month. Primary Care Physician: Dr. Ollie Renner Code status: Full Code Smoking packs per day: 0.5 Smoking cigarettes per day: 10.0 Years smoked: 30 Smoking pack-years: 15.00 Smoking status: Former smoker Tobacco type: cigarettes Second hand tobacco smoke exposure: Yes Smoking end date: 09/12/19 Alcohol intake: current Drinks per week: 1 Substance use: never Substance use type: does not use Living arrangements: with family Additional living arrangements comments: She currently lives alone but watches her grandchildren every Friday. She lives at home with her 2 cats. She also watches a friends dogs. 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 Gender identity (if verbalized by the patient): Female Spiritual care concerns: No Agree to blood products: Yes Exam Narrative: General: Awake, afebrile, in no acute distress, intoxicated. HEENT: PERRL, no rhinorrhea, no post nasal drip, oropharynx clear. Neck: Trachea midline, no JVD, no lymphadenopathy. Cardiovascular: Regular rate and rhythm, no murmurs, rubs or gallops, no peripheral edema. Respiratory: Clear to auscultation bilaterally, no tachypnea, no wheezing, no rhonchi, no rubs, no respiratory distress. Abdomen: Soft, nontender, nondistended, no rebound, no guarding, no peritoneal signs. Musculoskeletal: No joint swelling or deformity, normal muscle tone, moving all 4 extremities spontaneously, with intact bilateral hip flexions any extensions. Skin: No rashes or petechia, no signs of infection. Psychiatric: Intoxicated, normal behavior and judgment for situation. Neurological: Alert and oriented to person, intoxicated. Follows commands. No focal deficits, speech is clear and fluent. Course Vital Signs Vital signs: Vital Signs Pulse Rate 70 04/27/25 03:49 Respiratory Rate 21 H 04/27/25 03:49 Blood Pressure 127/71 04/27/25 03:49 Pulse Oximetry 95 04/27/25 03:49 Oxygen Delivery Room Air 04/27/25 03:49 Pulse Rate 74 04/27/25 04:04 Respiratory Rate 21 H 04/27/25 03:49 Blood Pressure 127/71 04/27/25 03:49 Pulse Oximetry 95 04/27/25 03:49 Oxygen Delivery Room Air 04/27/25 03:49 MDM - Alcohol MDM Narrative Medical decision making narrative: The patient was evaluated by myself in the emergency department. History is obtained from patient who is an independent historian along with brother present at bedside and physical exam was performed. External medical records were reviewed at this time. IV was established and pertinent tests were ordered. Thorough physical exam laced was performed at this time, patient had no tenderness in any of her extremities, joints, chest abdomen or pelvis. Given that she is currently denying any symptoms or complaints, no additional intervention is needed. Patient was informed that she and her brother can be discharged once they obtained a sober ride home. Differential diagnosis considerations include alcohol intoxication, fractures, dislocations, musculoskeletal strain. Comorbidities impacting this visit include none. I have evaluated and discussed social determinants of health with the patient that could potentially impact subsequent diagnosis and treatment plans. On repeat assessment of the patient, reevaluation revealed that the patient is doing well and is in no acute distress. Patient symptoms have remained stable since she arrived to our emergency department. Repeat vital signs were all reviewed and noted to be stable. Differential diagnosis and treatment plan were discussed with the patient at bedside. Patient agrees with discussion and after shared medical decision making agrees with discharge. All questions were answered to patient and brother satisfaction. Patient will follow up with her PCP in 3-5 days. Patient was provided with strict return precautions and instructed to return to the emergency department if any new or worsening symptoms develop. The patient was discharged in stable condition. Discharge Plan Discharge Clinical Impression: Alcohol intoxication Patient Disposition: Home Condition: Stable Instructions: Antibiotic Form, Alcohol Intoxication (DC) Additional Instructions: Please follow-up with your family doctor within the next 3-5 days. Return to the emergency department for new or worsening symptoms develop. Patient Language: Swedish Prescriptions: No Action magnesium 500 mg Tablet 500 mg PO DAILY prednisone 10 mg tablet 10 mg PO DIRECTED Patient Comments: TAPERING DOSE potassium 99 mg Tablet 99 mg PO DAILY lysine 500 mg Tablet 500 mg PO BID loratadine [Allergy Relief (loratadine)] 10 mg Tablet 10 mg PO DAILY cholecalciferol (vitamin D3) [Vitamin D3] 50 mcg (2,000 unit) Tablet 50 mcg PO DAILY atorvastatin 10 mg tablet 10 mg PO HS lisinopril 10 mg tablet 10 mg PO HS chlorthalidone 25 mg tablet 12.5 mg PO QAM Anoro Ellipta 62.5-25 mcg/actuation blister with device 1 inh INHALATION QAM albuterol sulfate 90 mcg/actuation aerosol powdr breath activated 2 inhalation INHALATION QID PRN (Reason: shortness of breath) Rx Instructions: Use 4x/day and wean down to use as needed. calcium carbonate-vitamin D3 600 mg(1,500mg) -500 unit Tablet Extended Release 24 Hr 1 tablet PO HS diltiazem HCl 120 mg Capsule,Extended Release 24 Hr 120 mg PO QAM Qty: 30 0RF Eliquis 5 mg Tablet 5 mg PO Q12HR Qty: 60 0RF Follow-up/Referrals: Nitin,Bull Rodriguez MD [Primary Care Provider] - 3 Days Time of Disposition: 04:39
[2025-04-27 05:26] VITALS: BP 123/74; PULSE 66; RESP 18; O2SAT 97
== END 2025-04-27 05:30 | disposition home or self-care (01) ==
PROVIDERS: Emergency Provider Emergency Medicine; PCP Internal Medicine
DX: F10.129 Alcohol abuse with intoxication, unspecified (principal); Y90.9 Presence of alcohol in blood, level not specified; J44.9 Chronic obstructive pulmonary disease, unspecified; I27.20 Pulmonary hypertension, unspecified; I50.30 Unspecified diastolic (congestive) heart failure; I13.0 Hypertensive heart and chronic kidney disease with heart failure and stage 1 through stage 4 chronic kidney disease, or unspecified chronic kidney disease; N18.9 Chronic kidney disease, unspecified; E78.2 Mixed hyperlipidemia; G47.33 Obstructive sleep apnea (adult) (pediatric); F32.A Depression, unspecified; Z86.14 Personal history of Methicillin resistant Staphylococcus aureus infection; Z87.891 Personal history of nicotine dependence; Z79.899 Other long term (current) drug therapy; Z79.01 Long term (current) use of anticoagulants
CPT/HCPCS: 93005; 99284